=== PATIENT | male | born 1940 | race Caucasian/White ===

== ENCOUNTER 2020-11-26 07:33 | Inpatient (IN) | payer MEDICARE, SELFPAY ==
[2020-11-26] VITALS (18 sets, daily range): BP systolic 117–179; BP diastolic 68–102; PULSE 83–106; RESP 16–32; TEMP 36.8–37.7; O2SAT 82–97; BMI 21.9; BMI 21.7
--- NOTE | ~2020-11-26 | CT_ITS ---
EXAMINATION: CT brain wo con DATE: 11/26/2020 08:33 INDICATION: Weakness. Fall. COVID-19 positive. TECHNIQUE: Computed tomography (CT) of the head was performed without intravenous contrast. The mA wa s adjusted according to patient size. Iterative reconstruction technique was employed. The dose-lengt h product was 681.00 mGy-cm. COMPARISON: Head CT 08/05/2012, brain MRI 08/06/2012 FINDINGS: There are scattered areas of low attenuation in the cerebral white matter. There is no intr acranial hemorrhage, acute infarction, or abnormal intracranial mass lesion. The ventricles are yonny l in size. There is mild mucosal thickening in the paranasal sinuses. There are likely changes of ocu lar lens replacement surgeries. There is a small left mastoid effusion. IMPRESSION: 1. Worsened moderate nonspecific cerebral white matter disease, which likely represents chronic small vessel ischemic disease. Reviewed, dictated and finalized at location A. IMPRESSION: 1. Worsened moderate nonspecific cerebral white matter disease, which likely re presents chronic small vessel ischemic disease.
--- NOTE | ~2020-11-26 | XR_ITS ---
EXAMINATION: XR chest 1V portable EXAM DATE: 11/26/2020 08:20 INDICATION: sob X 2 WKS, covid. H/O ASTHMA, COPD . TECHNIQUE: Portable AP frontal chest x-ray was obtained. There is no prior study for comparison. FINDINGS: Moderate amount of bilateral peripheral predominant airspace disease, distribution is consi stent with COVID pneumonia. No pneumothorax or pleural effusion. There may be some pleural plaques. C ardiomediastinal silhouette is normal. There are mild bony degenerative changes. Mild to moderate tho racic scoliosis. There is aortic arteriosclerosis. Chronic appearing hyperinflation. IMPRESSION: 1. Moderate amount of bilateral airspace disease. Reviewed, dictated and finalized at location A.
--- NOTE | ~2020-11-26 | XR_ITS ---
EXAMINATION: XR chest 1V portable DATE: 11/29/2020 14:35 INDICATION: Shortness of breath. TECHNIQUE: A single frontal view of the chest was obtained. COMPARISON: Chest single view 11/27/2020 FINDINGS: There are airspace and interstitial opacities throughout the lungs bilaterally. There are c alcified pleural plaques bilaterally, which may be seen with asbestos exposure. No pleural effusion o r pneumothorax. The heart size is normal. IMPRESSION: 1. Worsened diffuse lung disease, consistent with COVID-19 pneumonia. Reviewed, dictated and finalized at location A.
--- NOTE | ~2020-11-26 | XR_ITS ---
EXAMINATION: XR chest 1V portable DATE: 11/27/2020 10:39 INDICATION: Shortness of breath TECHNIQUE: frontal view of the chest was obtained. COMPARISON: Chest radiograph dated 11/26/2020 FINDINGS: Increasing bilateral patchy airspace opacities with peripheral and mid lung predominance. No pleural effusion or pneumothorax. Scattered bilateral calcified pleural plaques suggestive of prior asbestos exposure. The cardiomediastinal silhouette is normal. Mild thoracic dextrocurvature with bridging ost eophytes at multiple levels consistent with diffuse idiopathic skeletal hyperostosis (DISH). IMPRESSION: 1. Increasing patchy bilateral lung disease consistent with worsening pneumonia or pulmonary edema. 2. Scattered bilateral calcified pleural plaques consistent with prior asbestos exposure. Reviewed, dictated and finalized at location B.
--- NOTE | ~2020-11-26 | XR_ITS ---
EXAMINATION: XR chest 1V portable INDICATION: Shortness of breath TECHNIQUE: Portable AP chest at 0530 hours COMPARISON: 11/29/2020 FINDINGS: Interstitial and airspace opacities persist throughout all lung zones with slight interval improvement. There is no pleural effusion or pneumothorax. The cardiomediastinal silhouette is normal . Calcified pleural plaques are noted. IMPRESSION: 1. Diffuse lung disease with interval improvement, consistent with COVID 19 pneumonia. Reviewed, dictated and finalized at location A. IMPRESSION: 1. Diffuse lung disease with interval improvement, consistent with COVID 19 pne umonia.
--- NOTE | ~2020-11-26 | XR_ITS ---
EXAMINATION: XR chest 2V DATE: 12/09/2020 08:56 INDICATION: COVID pneumonia TECHNIQUE: frontal and lateral views of the chest were obtained. COMPARISON: Chest radiograph dated 12/03/2020 FINDINGS: Significant interval improvement in airspace opacities in the right mid and lower lung zones. The toney ority of the residual opacities appear to represent calcified pleural plaques related to asbestos exp osure. No pneumothorax or pleural effusion. The cardiomediastinal silhouette is normal. IMPRESSION: 1. Significant improvement, potentially resolution, of prior bilateral lung disease with remaining op acities likely resulting from calcific pleural plaques related to chronic asbestos exposure. There ar e no radiographs prior to 11/26/2020 to demonstrate the baseline prior to the current episode of acute lung disease. Reviewed, dictated and finalized at location A. IMPRESSION: 1. Significant improvement, potentially resolution, of prior bilateral lung dis ease with remaining opacities likely resulting from calcific pleural plaques re lated to chronic asbestos exposure. There are no radiographs prior to 11/26/2020 to demonstrate the baseline prior to the current episode of acute lung disease .
--- NOTE | 2020-11-26 08:04 | ECG_ITS ---
Measurements Intervals [place] Rate: 90 P: RI: 0 QRS: -10 QRSD: 85 T: 30 QT: 368 QTc: 451 Interpretive Statements ATRIAL FIBRILLATION ABNORMAL ECG Electronically Signed On 11-26-2020 9:52:16 CDT by Hector Grijalva D.O.
[2020-11-26 08:32] LABS: Basophils Percent Auto 0.2 % (0.2-1.2); Hematocrit 45.7 % (42.0-52.0); Hemoglobin 15.2 g/dL (14.0-18.0); Immature Granulocyte Absolute 0.04 K/mm3 (0.00-0.031); Immature Granulocyte Percent A 0.7 % (0-0.5); Lymphocytes Absolute Auto 0.56 K/mm3 (0.9-3.2); Lymphocytes Percent Auto 9.2 % (18.3-44.2); Mean Corpuscular HGB Conc 33.3 g/dl (32-36); Mean Corpuscular Hemoglobin 32.5 pg (26-34); Mean Corpuscular Volume 97.6 fl (80-100); Mean Platelet Volume 9.6 fl (7.4-10.4); Monocytes Absolute Auto 0.6 K/mm3 (0.1-0.6); Monocytes Percent Auto 9.9 % (2.6-8.5); Neutrophils Absolute Auto 4.9 K/mm3 (1.3-6.7); Platelet Count Result 207 k/mm3 (150-375); Red Blood Count 4.68 M/mm3 (4.6-6.20); Red Cell Distribution Width 14.5 % (11.5-14.5); White Blood Count 6.1 K/mm3 (4.5-10.0)
[2020-11-26 08:50] LABS: Alanine Aminotransferase 33 U/L (4-50); Albumin Level 3.5 g/dL (3.5-5.1); Alkaline Phosphatase 66 U/L (38-126); Anion Gap 6 mmol/L (8-16); Aspartate Amino Transferase 65 U/L (17-59); Bilirubin,Total 0.6 mg/dL (0.2-1.3); Blood Urea Nitrogen 27 mg/dL (9-20); Calcium 7.8 mg/dL (8.4-10.2); Carbon Dioxide 24 mmol/L (22-30); Chloride 104 mmol/L (98-107); Estimated CRCL calculation 47 ml/min; Estimated Glomerular Filt Rate 58; Glucose 117 mg/dL (65-110); Potassium 4.1 mmol/L (3.4-5.0); Sodium 134 mmol/L (137-145)
[2020-11-26 09:07] LABS: NT Pro B Type Natriuretic Pept 2170 pg/mL (5-100); Troponin I 0.067 ng/mL (0.000-0.034)
[2020-11-26 10:10] LABS: CRP 24.6 mg/dL (<1.0)
--- NOTE | 2020-11-26 12:52 | ED.WEAKNESS ---
HPI - Weakness General Chief complaint: Weakness Stated complaint: weakness, COVID + Time Seen by Provider: 11/26/20 07:37 Source: family and EMS Mode of arrival: EMS Limitations: dementia History of Present Illness HPI Narrative: 80-year-old with history of dementia was brought in from home in ambulance with complaints of weakness. Patient fell off the toilet seat this morning his was trying to help him out get him out of the floor. He was also recently diagnosed with Covid. However upon EMS arrival patient was found to be hypoxemic. Patient presently denies any chest pain or shortness of breath cough. MD Complaint: generalized weakness Onset (ago): hour(s) (4) Duration: constant Location: generalized Migration: none Severity: moderate Relieving factors: none Exacerbating factors: none Related Data Home Medications Medication Instructions Recorded Confirmed albuterol sulfate INHALATION 11/26/20 benzonatate mg PO 11/26/20 omeprazole 11/26/20 rosuvastatin mg 11/26/20 Allergies Allergy/AdvReac Type Severity Reaction Status Date / Time No Known Allergies Allergy Mild Verified 11/26/20 08:39 Review of Systems Review of Systems: ROS unobtainable: Yes unobtainable due to medical condition (Dementia) Exam Narrative: GENERAL: Well-appearing, well-nourished, and in no acute distress. HEAD: Normocephalic, atraumatic. EYES: PERRLA and EOMI. NECK: Supple. CHEST: Clear to auscultation. No respiratory distress. HEART: Regular rate and rhythm. No murmur heard. Normal peripheral pulses. ABDOMEN: Soft, nontender, nondistended, normal active bowel sounds. EXTREMITIES: Normal range of motion. No edema. Stool in the lower extremities SKIN: Warm, dry, no rash. NEURO: No focal deficits. Alert and oriented x3. PSYCH: Normal mood and affect. Course Course Emergency Course: Patient comfortably resting on the bed in no discomfort with SPO2 of 94 to 95% on 2 L. Informed him about the lab work and x-rays. I discussed his lab work with his . We will admit him to the hospital for O2 and also his cardiac enzymes were elevated. I did consult cardiology for consult. Vital Signs Vital signs: Vital Signs Temperature 37.3 C 11/26/20 07:33 Pulse Rate 95 11/26/20 07:33 Respiratory Rate 28 H 11/26/20 07:33 Blood Pressure 156/82 H 11/26/20 07:33 Pulse Oximetry 82 L 11/26/20 07:33 Temperature 37.3 C 11/26/20 07:33 Pulse Rate 93 11/26/20 11:01 Respiratory Rate 29 H 11/26/20 11:01 Blood Pressure 146/82 H 11/26/20 11:01 Pulse Oximetry 95 11/26/20 10:00 MDM - Weakness Lab Data Result diagrams: 11/26/20 08:12 11/26/20 08:12 Labs: Lab Results 11/26/20 11/26/20 Range/Units 08:12 08:12 WBC 6.1 (4.5-10.0) K/mm3 RBC 4.68 (4.6-6.20) M/mm3 Hgb 15.2 (14.0-18.0) g/dL Hct 45.7 (42.0-52.0) % MCV 97.6 (80-100) fl MCH 32.5 (26-34) pg MCHC 33.3 (32-36) g/dl RDW 14.5 (11.5-14.5) % Plt Count 207 (150-375) k/mm3 MPV 9.6 (7.4-10.4) fl Immature Gran % (Auto) 0.7 H (0-0.5) % Neut % (Auto) 80.0 H (45.5-73.1) % Lymph % (Auto) 9.2 L (18.3-44.2) % Tyrrell % (Auto) 9.9 H (2.6-8.5) % Eos % (Auto) 0.0 (0-4.4) % Baso % (Auto) 0.2 (0.2-1.2) % Lymph # (Auto) 0.56 L (0.9-3.2) K/mm3 Tyrrell # (Auto) 0.6 (0.1-0.6) K/mm3 Eos # (Auto) 0.0 (0-0.3) K/mm3 Baso # (Auto) 0.0 (0.0-0.1) K/mm3 Abs Immat Gran (auto) 0.04 H (0.00-0.031) K/mm3 Absolute Neuts (auto) 4.9 (1.3-6.7) K/mm3 Absolute Nucleated RBC 0.0 (0.0-0.012) K/mm3 Nucleated RBC % 0.0 (0.0-0.2) % Sodium 134 L (137-145) mmol/L Potassium 4.1 (3.4-5.0) mmol/L Chloride 104 (98-107) mmol/L Carbon Dioxide 24 (22-30) mmol/L Anion Gap 6 L (8-16) mmol/L BUN 27 H (9-20) mg/dL Creatinine 1.20 (0.7-1.3) mg/dL Estim Creat Clear Calc 47 ml/min Estimated GFR 58 L (59 - ) Glucose 117 H (65-110) mg/dL Calcium 7.8
[2020-11-26] MEDS: SODIUM CHLORIDE 0.9% IV 1,000 ML 75 ML IV CONT (14:50)
[2020-11-26] MEDS: ASPIRIN 81 MG CHEWABLE TABLET PO (14:50)
--- NOTE | 2020-11-26 14:50 | ADMGEN ---
This patient, Petar Marquez, was admitted to IMU Room 211-01 at 1445 on November. Report received from Cat RN in ED. Patient/family oriented to hospital policies and general routines including ID bracelet, bed and alarms, visiting hours, pain management, procedures, bathroom and other care routines, personal items, smoking policy, room service/diet, and visiting hours. Information on how to activate the Rapid Response Team has been discussed. Patient/Family are encouraged to report perceived risks to care and to ask questions if they do not understand what they are told or what they should do.
[2020-11-26 16:49] LABS: Troponin I 0.058 ng/mL (0.000-0.034)
[2020-11-26 17:37] LABS: Glucose Point of Care 123 mg/dl (65-105)
[2020-11-26 19:07] LABS: Troponin I 0.069 ng/mL (0.000-0.034)
--- NOTE | 2020-11-26 19:20 | PM.IMHP ---
H&P: HPI History of Present Illness Date/Time: 11/26/20 19:20 Chief Complaint: Shortness of breath. Narrative: This is an 80-year-old male with past medical history significant for dementia, his is his primary caregiver. Patient is unable to give much history he only answers yes or no and and says ask my . Patient and are both here admitted to the hospice both of them tested positive for COVID. Most of the history has been obtained from medical records obtained in the emergency room. Patient has been very weak lately and his was trained to help him while he was using the toilet he fell off of the toilet seat and was unable to help pain get up EMS was called upon arrival EMS it was noted that patient's oxygen saturation was in the 80's %. Preliminary workup was significant for slight elevated troponin and EKG shows atrial fibrillation, creatinine of 1.2 BUN 27 BNP above 2000, a chest x-ray was significant for diffuse infiltrates. Patient has been admitted for further management treatment and evaluation. Review of Systems Review of Systems: ROS unobtainable: Yes unobtainable due to medical condition (Advanced dementia) [facility] Family History Family History (Updated 11/26/20 @ 15:06 by Mariah Kaplan RN) Other Unknown family medical history Social History Social History Smoking status: Never smoker Alcohol intake: never Substance use: never Gender identity (if verbalized by the patient): Male Spiritual care concerns: No Meds Home Medications and Allergies Home Medications Medication Instructions Recorded Confirmed Type albuterol sulfate 2 inh INHALATION Q4H 11/26/20 11/26/20 History benzonatate 200 mg PO TID 11/26/20 11/26/20 History omeprazole 20 mg PO HS 11/26/20 11/26/20 History rosuvastatin 20 mg PO HS 11/26/20 11/26/20 History Allergies Allergy/AdvReac Type Severity Reaction Status Date / Time No Known Allergies Allergy Mild Verified 11/26/20 08:39 Vital Signs Vital Signs - 24 hr 11/26/20 07:33 11/26/20 07:37 11/26/20 07:46 Temperature 99.1 F Pulse Rate 95 83 93 Respiratory Rate 28 H 25 H 26 H Blood Pressure 156/82 H 156/82 H 160/94 H Pulse Oximetry 82 L 84 L 93 11/26/20 08:01 11/26/20 08:17 11/26/20 09:00 Temperature Pulse Rate 91 92 92 Respiratory Rate 31 H 32 H 26 H Blood Pressure 151/102 H 140/68 145/70 H Pulse Oximetry 91 89 L 95 11/26/20 10:00 11/26/20 11:01 11/26/20 12:00 Temperature Pulse Rate 92 93 100 Respiratory Rate 24 H 29 H 24 H Blood Pressure 142/85 H 146/82 H 168/87 H Pulse Oximetry 95 95 11/26/20 13:00 11/26/20 13:40 11/26/20 15:07 Temperature 98.8 F Pulse Rate 103 H 106 H 96 Respiratory Rate 20 22 H 22 H Blood Pressure 170/91 H 170/91 H 117/95 H Pulse Oximetry 97 94 94 11/26/20 15:09 11/26/20 16:00 11/26/20 17:23 Temperature 99.8 F H Pulse Rate 95 93 Respiratory Rate 22 H Blood Pressure 179/101 H Pulse Oximetry 94 94 93 11/26/20 18:00 Temperature Pulse Rate 98 Respiratory Rate Blood Pressure Pulse Oximetry Exam Narrative: Laying in bed Const: General: cooperative, comfortable, no acute distress, well developed, alert, awake and other (Well-appearing) Nutritional Appearance: thin Orientation/consciousness: patient oriented x3 HENMT: Head: normal to inspection, normocephalic and atraumatic Ears: hearing grossly normal bilaterally Face and sinus: normal facial exam Eyes: General: appearance normal, both eyes and all related structures Pupils: Equal, round and reactive pupils present EOM: EOMs intact bilaterally Neck: Neck: full ROM, no lymphadenopathy and no JVD Thyroid: thyroid normal Lymphatic: no lymphadenopathy noted Resp: Effort & Inspection: normal respiratory effort and able to speak in complete sentences Auscultation: clear to auscultation bilaterally Cardio: Jugular venous distension: no JVD Rate: regular rate
[2020-11-27] VITALS (23 sets, daily range): BP systolic 127–179; BP diastolic 67–93; PULSE 86–126; RESP 20–42; TEMP 36.6–37.4; O2SAT 92–99; BMI 23.0
--- NOTE | 2020-11-27 | ECHO_ITS ---
Patient Info Name: Petar Marquez Age: 80 years : 1940 Gender: Male Ht: 73 in Wt: 164 lbs BSA: 1.95 m2 HR: 110 bpm BP: 134 / 72 mmHg Heart Rhythm: Atrial Fibrillation Exam Date: 11/27/2020 9:47 AM Exam Location: [facility] Patient Status: Inpatient Admit Date: 11/26/2020 Staff Ordering Physician: Betzy Garcia MD Advertising Intern: Josep Berger, JANAECS, RT Attending Provider: Monique Negron MD Referring Physician: Radha RAYGOZA; Exam Type: CA echo doppler color flow Study Info Indications I50.9 - Heart failure, unspecified Complete two-dimensional, color flow and Doppler transthoracic echocardiogram is performed. Summary 1. Complete two-dimensional, color flow and Doppler transthoracic echocardiogram is performed. 2. Left ventricular chamber dimension is normal. 3. Left ventricular systolic function is normal, estimated at 55-60%. 4. There is moderately increased left ventricular wall thickness. 5. The left ventricular diastolic function is indeterminate. 6. There is mild aortic valve stenosis with a peak velocity of 120 cm/s, mean gradient of 3 mmHg, and aortic valve area of 1.9 cm2. 7. There is mild aortic valve regurgitation. 8. There is mild aortic valve calcification. 9. There is mild mitral valve regurgitation. 10. There is mild tricuspid valve regurgitation. Left Ventricle Left ventricular chamber dimension is normal. Left ventricular systolic function is normal, estimated at 55-60%. There is moderately increased left ventricular wall thickness. The left ventricular diastolic function is indeterminate. Right Ventricle Right ventricular chamber dimension is normal. Right ventricular systolic function is normal. Left Atria Left atrial chamber dimension is normal. There does appear to be some external compression of the left atrial free wall possibly from a hiatal hernia. Right Atria Right atrial chamber dimension is normal. Atrial Septum Intact interatrial septum visualized by color flow imaging. Aortic Valve The aortic valve is trileaflet. There is mild aortic valve stenosis with a peak velocity of 120 cm/s, mean gradient of 3 mmHg, and aortic valve area of 1.9 cm2. There is mild aortic valve regurgitation. There is mild aortic valve calcification. Pulmonic Valve The pulmonic valve is normal. There is no pulmonic valve stenosis. There is trace pulmonic regurgitation. Mitral Valve The mitral valve has thickened leaflets. There is no mitral valve stenosis. There is mild mitral valve regurgitation. Tricuspid Valve The tricuspid valve leaflets are normal. There is no significant tricuspid valve stenosis. There is mild tricuspid valve regurgitation. Pericardium/Pleural The pericardium appears normal. There is no pericardial effusion. Inferior Vena Cava Normal inferior vena cava with >50% collapse upon inspiration consistent with normal right atrial pressure, 5 mmHg. Aorta The aortic root size at the sinus of Valsalva is normal. Left Ventricular Outflow Tract Name Value Normal LVOT 2D LVOT Diameter 2.0 cm LVOT Doppler LVOT Peak Gradient
[2020-11-27 00:28] LABS: Alanine Aminotransferase 37 U/L (4-50); Estimated CRCL calculation 49 ml/min; Estimated Glomerular Filt Rate > 60; Prothrombin Time 12.9 Seconds (11.1-14.7)
[2020-11-27] MEDS: ROSUVASTATIN 10 MG TABLET 20 MG PO (00:28)
[2020-11-27] MEDS: ENOXAPARIN 80 MG/0.8 ML SYRINGE 75 MG SUB-Q ×3 (00:28→20:21)
[2020-11-27] MEDS: hydrALAZINE HCL 20 MG/ML VIAL 10 MG IV PUSH (01:35)
--- NOTE | 2020-11-27 01:52 | ECG_ITS ---
Measurements Intervals [place] Rate: 106 P: VA: 0 QRS: -11 QRSD: 89 T: 11 QT: 349 QTc: 463 Interpretive Statements ATRIAL FIBRILLATION WITH RAPID VENTRICULAR RESPONSE DELAYED PRECORDIAL R/S TRANSITION BORDERLINE T WAVE ABNORMALITY- INFERIOR LEADS BASELINE ARTIFACT- II, III, AVF, V2 ABNORMAL ECG Electronically Signed On 11-27-2020 6:52:37 CDT by Hector Grijalva D.O.
[2020-11-27] MEDS: ALBUTEROL SULFATE (*SP) INHALER 2 PUFF INHALATION (02:20)
[2020-11-27] MEDS: REMDESIVIR 200 MG/NS 250 ML 200 MG/250 ML BAG 250 MG IVPB (02:20)
[2020-11-27 05:21] LABS: Basophils Percent Auto 0.1 % (0.2-1.2); Hematocrit 45.6 % (42.0-52.0); Hemoglobin 15.3 g/dL (14.0-18.0); Immature Granulocyte Absolute 0.05 K/mm3 (0.00-0.031); Immature Granulocyte Percent A 0.7 % (0-0.5); Lymphocytes Absolute Auto 0.58 K/mm3 (0.9-3.2); Mean Corpuscular HGB Conc 33.6 g/dl (32-36); Mean Corpuscular Hemoglobin 32.8 pg (26-34); Mean Corpuscular Volume 97.6 fl (80-100); Mean Platelet Volume 10.3 fl (7.4-10.4); Monocytes Absolute Auto 0.6 K/mm3 (0.1-0.6); Monocytes Percent Auto 7.9 % (2.6-8.5); Neutrophils Percent Auto 83.3 % (45.5-73.1); Platelet Count Result 211 k/mm3 (150-375); Red Blood Count 4.67 M/mm3 (4.6-6.20); Red Cell Distribution Width 14.4 % (11.5-14.5); White Blood Count 7.3 K/mm3 (4.5-10.0)
[2020-11-27 05:38] LABS: Alanine Aminotransferase 38 U/L (4-50); Anion Gap 6 mmol/L (8-16); Blood Urea Nitrogen 25 mg/dL (9-20); Calcium 7.6 mg/dL (8.4-10.2); Carbon Dioxide 23 mmol/L (22-30); Chloride 107 mmol/L (98-107); Estimated CRCL calculation 62 ml/min; Estimated Glomerular Filt Rate > 60; Glucose 138 mg/dL (65-110); INR 1.1; Potassium 3.7 mmol/L (3.4-5.0); Prothrombin Time 13.8 Seconds (11.1-14.7); Sodium 136 mmol/L (137-145)
--- NOTE | 2020-11-27 08:40 | PM.IMPN ---
Progress Note: A&P Assessment and Plan (1) Acute respiratory failure with hypoxia: Code(s): J96.01 - Acute respiratory failure with hypoxia Status: Acute Assessment and Plan: ON OXYGEN SUPPLEMENTATION TRY AND KEEP OXYGEN SATURATION AT 94% Will move from BiPAP to high-flow nasal cannula LIKELY SECONDARY TO COVID PNEUMONIA CONTINUE TO MONITOR SUPPORTIVE CARE Recently diagnosed with COVID unsure when CRP 24 BNP elevated at 2 170 (2) Pneumonia due to COVID-19 virus: Code(s): U07.1 - COVID-19; J12.82 - Pneumonia due to coronavirus disease 2019 Status: Acute Assessment and Plan: STARTED ON REMDESIVIR ROCEPHIN AND ZITHROMAX FOR ADDED ANTIBACTERIAL COVERAGE WBC count is normal however does have neutrophilia DEXAMETHASONE has ordered along with the remdesivir monitor CRP (3) Atrial fibrillation and flutter: Code(s): I48.91 - Unspecified atrial fibrillation; I48.92 - Unspecified atrial flutter Status: Acute Assessment and Plan: APPARENTLY NEW ONSET STARTED ON THERAPEUTIC LOVENOX ECHOCARDIOGRAM today Had metoprolol 12.5 mg p.o. b.i.d. (4) Elevated troponin I level: Code(s): R77.8 - Other specified abnormalities of plasma proteins Status: Acute Assessment and Plan: Trend flat EKG WITH NO T-WAVE OR ST SEGMENT CHANGES Likely type 2 [facility] on board (5) Chronic kidney disease: Code(s): N18.9 - Chronic kidney disease, unspecified Status: Acute Assessment and Plan: BUN 27 CREATININE OF 1.2 CONTINUE TO MONITOR AVOID NEPHROTOXICS (6) Dementia: Code(s): F03.90 - Unspecified dementia without behavioral disturbance Status: Acute Assessment and Plan: SUPPORTIVE CARE ON NO MEDS (7) Generalized weakness: Code(s): R53.1 - Weakness Status: Acute Assessment and Plan: PT OT (8) Fall: Code(s): W19.XXXA - Unspecified fall, initial encounter Status: Acute Assessment and Plan: He had a CT head negative Additional Plan This is an 80-year-old male with past medical history significant for dementia, his is his primary caregiver. Patient is unable to give much history he only answers yes or no and and says ask my . Patient and are both here admitted to the hospice both of them tested positive for COVID. Most of the history has been obtained from medical records obtained in the emergency room. Patient has been very weak lately and his was trained to help him while he was using the toilet he fell off of the toilet seat and was unable to help pain get up EMS was called upon arrival EMS it was noted that patient's oxygen saturation was in the 80's %. Preliminary workup was significant for slight elevated troponin and EKG shows atrial fibrillation, creatinine of 1.2 BUN 27 BNP above 2000, a chest x-ray was significant for diffuse infiltrates. Patient has been admitted for further management treatment and evaluation. Subjective Date/time seen: 11/27/20 08:40 Interval history: He states he feels okay. Continues on a continuous BiPAP since last night. Denies any chest pain or cough. No leg swelling. He has dementia so most of the history was unable to be obtained continues to say ask my Review of Systems Review of Systems: ROS unobtainable: Yes unobtainable due to medical condition (Advanced dementia) Exam Narrative: GENERAL: Well-appearing, well-nourished, and in no acute distress. On BiPAP HEAD: Normocephalic, atraumatic. EYES: PERRLA and EOMI. NECK: Supple. Nontender CHEST: Clear to auscultation. No respiratory distress. HEART: Irregularly irregular mildly tachycardic No murmur heard. Normal peripheral pulses. ABDOMEN: Soft, nontender, nondistended, normal active bowel sounds. EXTREMITIES: Normal range of motion. No edema. Stool in the lower extremities SKIN: Warm, dry, no rash. NEURO: No focal deficits. Alert and conversant Objective Data Vital Signs
[2020-11-27 10:18] LABS: D Dimer 1.78 ug/mL (<0.48)
--- NOTE | 2020-11-27 10:26 | PCRCNOTE ---
Window of time for administration has passed. See next scheduled administration.
--- NOTE | 2020-11-27 10:41 | PCOTNOTE ---
OT Attempted to evaluate. Due to pt. decline, pt. not appropriate at this time per nurse report.
[2020-11-27] MEDS: FUROSEMIDE INJ 40 MG/4 ML VIAL IV PUSH (10:43)
[2020-11-27 11:03] LABS: Add Urine Microscopic? YES; Appearance Urine Clear (Clear); Bilirubin Urine Negative (Negative); Blood Urine 3+ (Negative); Color Urine Yellow (Yellow); Glucose Urine UA Negative (Negative); Ketones Urine 1+ mg/dL (Negative); Leukocyte Esterase Ur Negative LEU/UL (NEGATIVE); Nitrate Urine Negative (Negative); Protein Urine 2+ mg/dL (Negative); RBC Urine 0-2 /hpf (0-2); Specific Grav Ur 1.025 (1.001-1.035); Squamous Epithelial Cell Urine Rare /hpf (Few); Urobilinogen Urine Negative mg/dL (<2.0); WBC Urine 0-3 /hpf (0-3)
--- NOTE | 2020-11-27 11:45 | PCRCNOTE ---
Window of time for administration has passed. See next scheduled administration.
--- NOTE | 2020-11-27 11:57 | PM.CNPUL ---
Assessment and Plan Assessment and plan (1) Pneumonia due to COVID-19 virus: Code(s): U07.1 - COVID-19; J12.82 - Pneumonia due to coronavirus disease 2019 Status: Acute Assessment and Plan: Patient tested positive for COVID-19 on 11/16 and started on remdesivi 11/26, dexamethasone on 11/27 and tocilizumab not available. Spoke with pharmacy and baricitinib 4 mg PO Q day ordered 11/27. Emperically started on ceftriaxone and azithromycin. - Remdesivir for 10 days Unless he should recover and tolerate room air with rest, ambulation and while sleeping. - Dexamethasone 6 mg IV for 10 days - Continuous pulse oximetry - Prone positioning as tolerated. - Avoid any fluid overload. - emperic azihtromycin and ceftraixone for CAP. DC after blood cultures negative for 48 hours. - DC bronchodilators as AFIB - Lovenox full dose for AFIB. 11/27 CXR worsening infiltrates today. Worsening clinically with worsening hypoxia. I have changed him to AVAPS mode and will check a blood gas in 30 minutes to assess for hypercarbic respiratory failure. I spoke with the bedside nurse and Dr. Mosher to talk to regarding code status. I spoke with ferry hand who already had heard about patient from Dr. Mosher. Will follow with you. (2) Acute respiratory failure with hypoxia: Code(s): J96.01 - Acute respiratory failure with hypoxia Status: Acute Assessment and Plan: Etiology of hypoxic respiratory failure is likely COVID pneumonia. I will check an echocardiogram to ensure normal LV function and normal aortic valve function. 11/26 Initial saturations on 11/26 were 84% on room air at 7:30 a.m.. 11/26 3:00 p.m. patient required 6 L nasal cannula for saturations 94%. 11/26 8:00 p.m. required 15 L nasal cannula for saturations 91%. 11/27 2:00 a.m. patient required BiPAP with a rate of 10, pressure is 18/6 and 80% for saturations 95%. 11/27 11:45 a.m. AVAPS mode with a backup rate of 24, tidal volume 550, EPAP 6, minimal inspiratory pressure 7, maximal inspiratory pressure 25, inspiratory time 1.0 seconds, rise of to and 80%. Saturations were 95%. History of Present Illness History of Present Illness Consult date: 11/27/20 Requesting physician: Reuben Mosher MD Reason for consult: hypoxemia and other (COVID pneumonia) Chief complaint: covid/hypoximia/elevated troponin Narrative: This is a new Pulmonary consult for COVID pneumonia with hypoxemic respiratory failure 80-year-old man with a history of dementia who tested positive for COVID by report on 11/16/20. Patient was weak and on 11/26 he fell off the toilet seat an EMS was called. Saturations were in the 80% and he was brought to the emergency department. Patient had a white blood cell count of 6.1, CRP of 24.6, creatinine 1.2, BNP 2170 and a chest x-ray that showed diffuse bilateral interstitial and alveolar infiltrates. Patient was started on Remdesivir on 11/26. Initial saturations on 11/26 were 84% on room air at 7:30 a.m.. At 3:00 p.m. patient required 6 L nasal cannula for saturations 94%. At 8:00 p.m. required 15 L nasal cannula for saturations 91%. On 11/27 at 2:00 a.m. patient required BiPAP with a rate of 10, pressure is 18/6 and 80% for saturations 95%. Patient was empirically started on ceftriaxone and azithromycin for possible community-acquired pneumonia. I was consulted. Of note the patient's is also COVID positive and she is admitted to the medical floor as well. 11/27: Patient knows his name, states he is at [place], but does not know the year. He is currently on BiPAP in moderate respiratory distress with a respiratory rate of 40 On the above mentions BiPAP settings. I changed his BiPAP settings to AVAPS mode with a backup rate of 24, tidal volume 550, EPAP 6, minimal inspiratory pressure 7, maximal inspiratory pressure 25, inspiratory time 1.0 seconds, rise of to and 80%. Saturations were 95% on the settings and his respirato
--- NOTE | 2020-11-27 12:12 | PM.CNCAR ---
Assessment and Plan Assessment and plan (1) Pneumonia due to COVID-19 virus: Code(s): U07.1 - COVID-19; J12.82 - Pneumonia due to coronavirus disease 2018 Status: Acute Assessment and Plan: 80-year-old male with history of dementia; no known prior cardiac history. Patient admitted to the hospital with generalized weakness, found to be hypoxemic. Recent diagnosis of COVID-19 infection, with COVID pneumonia and worsening respiratory status. Patient currently on BiPAP with 80% FiO2. He has also receiving antibiotics, steroids, remdesivir. -management as per Primary Team, pulmonology -gentle diuresis -check echocardiogram Doppler (2) Acute respiratory failure with hypoxia: Code(s): J96.01 - Acute respiratory failure with hypoxia Status: Acute Assessment and Plan: Management as per Primary Team, pulmonology (3) Atrial fibrillation: Code(s): I48.91 - Unspecified atrial fibrillation Status: Acute Assessment and Plan: Patient is in atrial fibrillation with heart rates in 90s to 100s. Patient unable to take p.o. medications at this time. Continue to monitor for now. Elevated heart rates are secondary to underlying infection/inflammatory process. If heart rates are persistently more than 110 beats per minute, then may use metoprolol tartrate 5 mg IV p.r.n. q.6 hours, with holding parameters for blood pressure. May consider using IV amiodarone if persistent heart rates with relatively low blood pressures. DC cardioversion, if necessary for any hemodynamically unstable AFib with RVR. Patient is currently receiving low-molecular weight heparin for anticoagulation. History of Present Illness History of Present Illness Consult date/time: 11/27/20 12:12 DATE OF CONSULT: 11/27/2020 REASON FOR CONSULT: AFib, elevated trope REQUESTING PHYSICIAN:Armando Martell MD CHIEF COMPLAINT: Weakness HPI: 80-year-old male with dementia; no known prior cardiac history. Patient presented to [facility] Emergency Room on 11/26/2020 via EMS with generalized weakness and a fall in the bathroom. Patient was apparently found to have COVID-19 infection on November 16, 2020. He was hypoxemic with SpO2 82% on arrival. EKG on my personal evaluation showed atrial fibrillation with controlled ventricular response, ventricular rate 90 beats per minute. Troponins are minimally elevated and essentially flat. Chest x-ray showed bilateral airspace disease. CT head reportedly showed worsened moderate nonspecific cerebral white matter disease, which likely represents chronic small vessel ischemic disease. Follow-up chest x-ray from today showed Increasing patchy bilateral lung disease consistent with worsening pneumonia or pulmonary edema; scattered bilateral calcified pleural plaques consistent with prior asbestos exposure. Patient has been receiving antibiotics, steroids and remdesivir for COVID 19 infection. His currently on BiPAP at 80% FiO2. Has also received IV furosemide. Patient is currently on anticoagulation with low-molecular weight heparin. On telemetry, he is in atrial fibrillation with heart rates in 90s to early 100s. Reason For Visit: covid/hypoximia/elevated troponin Review of Systems Review of Systems: ROS unobtainable: Yes unobtainable due to medical condition (Unable to obtain, patient has dementia and is on BiPAP) and other (Information gathered from the review of the chart and from the staff) ON LICENSE OF [facility] Past Medical History Medical History Dementia Family History Family History (Updated 11/27/20 @ 12:27 by Milton Juarez MD) Other Unknown family medical history Social History Social History Smoking status: Never smoker Alcohol intake: never Substance use: never Gender identity (if verbalized by the patient): Male Spiritual care concerns: No Meds Home Medications and Jonathan
[2020-11-27 12:40] LABS: Ferritin > 2000.00 ng/mL (11.1-264)
[2020-11-27 13:07] LABS: Alveolar/Arterial O2 Gradient 470.9 mmHg; Base Excess ABG 0.4 mEq/l (+/-2.0); Carboxyhemoglobin 0.3 % THb (0-2.0); Fractional Inspired Oxygen 80 %; HCO3 ABG 22.8 mEq/l (22.0-26.0); Methemoglobin ABG 0.4 %THb (0-1.5); Oxygen Content ABG 21.1 %vol (16.0-22.0); Oxygen Saturation ABG 94.7 % (95.0-100.0); Oxyhemoglobin 93.3 % THb (90.0-100.0); PCO2 ABG 31.2 mmHg (35.0-45.0); PO2 ABG 66.7 mmHg (80.0-100.0); PO2 FiO2 Ratio Arterial Blood 0.83 %; Total Hemoglobin 16.1 g/dL (12.0-18.0); pH ABG 7.481 (7.350-7.450)
[2020-11-27 13:08] LABS: Device NON-INVASIVE VENT; Modified Allen's Test Pass; Site Drawn RIGHT RADIAL
[2020-11-27 13:09] LABS: Non-Invasive Vent Rate 24 /MIN
[2020-11-27 13:10] LABS: Non-Invasive Expiratory Pressure 6 CMH2O
[2020-11-27] MEDS: BARICITINIB 2 MG TABLET 4 MG PO (17:50)
[2020-11-27] MEDS: METOPROLOL TARTRATE INJ 5 MG/5 ML VIAL IV PUSH (20:20)
[2020-11-27] MEDS: REMDESIVIR 100 MG/NS 250 ML 100 MG/250 ML BAG 250 MG IVPB (22:08)
[2020-11-28] VITALS (22 sets, daily range): BP systolic 120–149; BP diastolic 68–93; PULSE 80–117; RESP 20–35; TEMP 35.9–37.2; O2SAT 88–98
[2020-11-28 05:42] LABS: Basophils Percent Auto 0.4 % (0.2-1.2); Hematocrit 46.2 % (42.0-52.0); Hemoglobin 15.2 g/dL (14.0-18.0); Immature Granulocyte Absolute 0.06 K/mm3 (0.00-0.031); Immature Granulocyte Percent A 1.2 % (0-0.5); Lymphocytes Absolute Auto 0.96 K/mm3 (0.9-3.2); Lymphocytes Percent Auto 18.8 % (18.3-44.2); Mean Corpuscular HGB Conc 32.9 g/dl (32-36); Mean Corpuscular Hemoglobin 31.9 pg (26-34); Mean Corpuscular Volume 97.1 fl (80-100); Mean Platelet Volume 10.1 fl (7.4-10.4); Monocytes Absolute Auto 0.6 K/mm3 (0.1-0.6); Monocytes Percent Auto 12.1 % (2.6-8.5); Neutrophils Absolute Auto 3.5 K/mm3 (1.3-6.7); Neutrophils Percent Auto 67.5 % (45.5-73.1); Platelet Count Result 284 k/mm3 (150-375); Red Blood Count 4.76 M/mm3 (4.6-6.20); Red Cell Distribution Width 14.3 % (11.5-14.5); White Blood Count 5.1 K/mm3 (4.5-10.0)
[2020-11-28 05:59] LABS: INR 1.2; Prothrombin Time 15.1 Seconds (11.1-14.7)
[2020-11-28 06:21] LABS: Alanine Aminotransferase 48 U/L (4-50); Albumin Level 3.3 g/dL (3.5-5.1); Alkaline Phosphatase 78 U/L (38-126); Anion Gap 3 mmol/L (8-16); Aspartate Amino Transferase 80 U/L (17-59); Bilirubin,Total 0.5 mg/dL (0.2-1.3); Blood Urea Nitrogen 43 mg/dL (9-20); CRP 24.4 mg/dL (<1.0); Carbon Dioxide 30 mmol/L (22-30); Chloride 107 mmol/L (98-107); Estimated CRCL calculation 44 ml/min; Estimated Glomerular Filt Rate 53; Glucose 179 mg/dL (65-110); Potassium 4.2 mmol/L (3.4-5.0); Sodium 140 mmol/L (137-145)
--- NOTE | 2020-11-28 08:51 | PCPTNOTE ---
PT evaluation attempted this a.m. at 8:45. Pt orders to be entered for HOLD therapy due to patient medical status.
[2020-11-28] MEDS: ENOXAPARIN 80 MG/0.8 ML SYRINGE 75 MG SUB-Q ×2 (09:19→21:15)
--- NOTE | 2020-11-28 10:22 | PM.PNPUL ---
Progress Note: A&P Assessment and Plan (1) Pneumonia due to COVID-19 virus: Code(s): U07.1 - COVID-19; J12.82 - Pneumonia due to coronavirus disease 2019 Status: Acute Assessment and Plan: Patient tested positive for COVID-19 on 11/16 and started on remdesivi 11/26, dexamethasone on 11/27 and tocilizumab not available. Spoke with pharmacy and baricitinib 4 mg PO Q day started 11/27. Emperically started on ceftriaxone and azithromycin. - Remdesivir for 10 days Unless he should recover and tolerate room air with rest, ambulation and while sleeping. - Dexamethasone 6 mg IV for 10 days - Continuous pulse oximetry - Prone positioning as tolerated. - Avoid any fluid overload. - emperic azihtromycin and ceftraixone for CAP. DC after blood cultures negative for 48 hours. - DC bronchodilators as AFIB - Lovenox full dose for AFIB. 11/27 CXR worsening infiltrates today. AVAPS ABG without hypercarbia 7.48. Worsening clinically with worsening hypoxia. I have changed him to AVAPS mode and will check a blood gas in 30 minutes to assess for hypercarbic respiratory failure. 11/27 I spoke with the bedside nurse and Dr. Mosher to talk to regarding code status. I spoke with jewelry cutter who already had heard about patient from Dr. Mosher. 11/28 Unchanged on continuous BiPAP, FIO2 decreased from 80 to 60%. attempt Airvo 60L and 100% along with 100% NRB mask later today. Will follow with you. (2) Acute respiratory failure with hypoxia: Code(s): J96.01 - Acute respiratory failure with hypoxia Status: Acute Assessment and Plan: Etiology of hypoxic respiratory failure is likely COVID pneumonia. I will check an echocardiogram to ensure normal LV function and normal aortic valve function. 11/26 Initial saturations on 11/26 were 84% on room air at 7:30 a.m.. 11/26 3:00 p.m. patient required 6 L nasal cannula for saturations 94%. 11/26 8:00 p.m. required 15 L nasal cannula for saturations 91%. 11/27 2:00 a.m. patient required BiPAP with a rate of 10, pressure is 18/6 and 80% for saturations 95%. 11/27 11:45 a.m. AVAPS mode with a backup rate of 24, tidal volume 550, EPAP 6, minimal inspiratory pressure 7, maximal inspiratory pressure 25, inspiratory time 1.0 seconds, rise of to and 80%. Saturations were 95%. ABG 7.48//68. 11/28 08:15 AVAPS mode with FIO2 60% and sats 94%, attempt Airvo 60L and 100% along with 100% NRB mask later today. Subjective Date/time seen: 11/28/20 10:22 Interval history: Narrative: This is a new Pulmonary consult for COVID pneumonia with hypoxemic respiratory failure 80-year-old man with a history of dementia who tested positive for COVID by report on 11/16/20. Patient was weak and on 11/26 he fell off the toilet seat an EMS was called. Saturations were in the 80% and he was brought to the emergency department. Patient had a white blood cell count of 6.1, CRP of 24.6, creatinine 1.2, BNP 2170 and a chest x-ray that showed diffuse bilateral interstitial and alveolar infiltrates. Patient was started on Remdesivir on 11/26. Initial saturations on 11/26 were 84% on room air at 7:30 a.m.. At 3:00 p.m. patient required 6 L nasal cannula for saturations 94%. At 8:00 p.m. required 15 L nasal cannula for saturations 91%. On 11/27 at 2:00 a.m. patient required BiPAP with a rate of 10, pressure is 18/6 and 80% for saturations 95%. Patient was empirically started on ceftriaxone and azithromycin for possible community-acquired pneumonia. I was consulted. Of note the patient's is also COVID positive and she is admitted to the medical floor as well. 11/27: Patient knows his name, states he is at [place], but does not know the year. He is currently on BiPAP in moderate respiratory distress with a respiratory rate of 40 On the above mentions BiPAP settings. I changed his BiPAP settings to AVAPS mode with a backup rate of 24, tidal volume 550, EPAP 6, minimal inspiratory pressure
--- NOTE | 2020-11-28 10:57 | PCSTNOTE ---
Spoke with nurse, Jamil, who reported patient just was weaned from BiPap machine and she would like to wait to try Bedside Swallow Evaluation until later in the day to allow time for patient to adjust to room air and maintain adequate oxygen levels. Therapist will check in later today.
--- NOTE | 2020-11-28 12:26 | PCSTNOTE ---
Please refer to the Bedside Swallow Evaluation in the EMR. Please note, silent aspiration cannot be ruled out at bedside.
--- NOTE | 2020-11-28 13:58 | PM.IMPN ---
Progress Note: A&P Assessment and Plan (1) Acute respiratory failure with hypoxia: Code(s): J96.01 - Acute respiratory failure with hypoxia Status: Acute Assessment and Plan: ON OXYGEN SUPPLEMENTATION TRY AND KEEP OXYGEN SATURATION AT 94% Will move from BiPAP to high-flow nasal cannula LIKELY SECONDARY TO COVID PNEUMONIA CONTINUE TO MONITOR SUPPORTIVE CARE Recently diagnosed with COVID unsure when CRP 24 BNP elevated at 2 170 Given a dose IV Lasix 1 time yesterday at 11/27 (2) Pneumonia due to COVID-19 virus: Code(s): U07.1 - COVID-19; J12.82 - Pneumonia due to coronavirus disease 2019 Status: Acute Assessment and Plan: STARTED ON REMDESIVIR ROCEPHIN AND ZITHROMAX FOR ADDED ANTIBACTERIAL COVERAGE WBC count is normal however does have neutrophilia DEXAMETHASONE has ordered along with the remdesivir monitor CRP Pulmonary consulted added on Baricitinib. Tocilizumab not available (3) Atrial fibrillation and flutter: Code(s): I48.91 - Unspecified atrial fibrillation; I48.92 - Unspecified atrial flutter Status: Acute Assessment and Plan: APPARENTLY NEW ONSET STARTED ON THERAPEUTIC LOVENOX ECHOCARDIOGRAM today Had metoprolol 12.5 mg p.o. b.i.d. was switched to IV metoprolol p.r.n. (4) Elevated troponin I level: Code(s): R77.8 - Other specified abnormalities of plasma proteins Status: Acute Assessment and Plan: Trend flat EKG WITH NO T-WAVE OR ST SEGMENT CHANGES Likely type 2 [address] Cardiology on board (5) Chronic kidney disease: Code(s): N18.9 - Chronic kidney disease, unspecified Status: Acute Assessment and Plan: BUN 27 CREATININE OF 1.2 CONTINUE TO MONITOR AVOID NEPHROTOXICS (6) Dementia: Code(s): F03.90 - Unspecified dementia without behavioral disturbance Status: Acute Assessment and Plan: SUPPORTIVE CARE ON NO MEDS (7) Generalized weakness: Code(s): R53.1 - Weakness Status: Acute Assessment and Plan: PT OT (8) Fall: Code(s): W19.XXXA - Unspecified fall, initial encounter Status: Acute Assessment and Plan: He had a CT head negative Additional Plan This is an 80-year-old male with past medical history significant for dementia, his is his primary caregiver. Patient is unable to give much history he only answers yes or no and and says ask my . Patient and are both here admitted to the hospice both of them tested positive for COVID. Most of the history has been obtained from medical records obtained in the emergency room. Patient has been very weak lately and his was trained to help him while he was using the toilet he fell off of the toilet seat and was unable to help pain get up EMS was called upon arrival EMS it was noted that patient's oxygen saturation was in the 80's %. Preliminary workup was significant for slight elevated troponin and EKG shows atrial fibrillation, creatinine of 1.2 BUN 27 BNP above 2000, a chest x-ray was significant for diffuse infiltrates. Patient has been admitted for further management treatment and evaluation. Subjective Date/time seen: 11/28/20 13:58 Interval history: Remain on BiPAP all night. Was switched to Airvo and and non-rebreather this morning is saturating in low 90s on 70% FiO2 at 60 liters/minute. He denies any overt shortness of breath his voice is hoarse. No chest pain reported. He states he misses his Review of Systems Review of Systems: All systems reviewed & are unremarkable except as noted in HPI and below (HPI however limited advanced dementia) Exam Narrative: GENERAL: Well-appearing, well-nourished, and in no acute distress. On Airvo and non-rebreather HEAD: Normocephalic, atraumatic. EYES: PERRLA and EOMI. NECK: Supple. Nontender CHEST: Coarse breath sounds. No respiratory distress. HEART: Irregularly irregular No murmur heard. Normal peripheral pulses. ABDOMEN: Soft, nontender, no
--- NOTE | 2020-11-28 14:19 | PM.PNCARD ---
Progress Note: A&P Assessment and Plan (1) Pneumonia due to COVID-19 virus: Code(s): U07.1 - COVID-19; J12.82 - Pneumonia due to coronavirus disease 2018 Status: Acute Assessment and Plan: 80-year-old male with history of dementia; no known prior cardiac history. Patient admitted to the hospital with generalized weakness, found to be hypoxemic. Recent diagnosis of COVID-19 infection, with COVID pneumonia and worsening respiratory status. Patient currently on BiPAP with 80% FiO2. He has also receiving antibiotics, steroids, remdesivir. -management as per Primary Team, pulmonology -gentle diuresis (2) Acute respiratory failure with hypoxia: Code(s): J96.01 - Acute respiratory failure with hypoxia Status: Acute Assessment and Plan: Management as per Primary Team, pulmonology (3) Atrial fibrillation: Code(s): I48.91 - Unspecified atrial fibrillation Status: Acute Assessment and Plan: Patient is in atrial fibrillation with heart rates in 90s to 100s. Patient unable to take p.o. medications at this time. Continue to monitor for now. Elevated heart rates are secondary to underlying infection/inflammatory process. Metoprolol 5 mg IV p.r.n.. Patient is currently receiving low-molecular weight heparin for anticoagulation. Subjective Date/time seen: 11/28/20 14:19 Interval history: Remain on BiPAP all night. Was switched to Airvo and and non-rebreather this morning is saturating in low 90s on 70% FiO2 at 60 liters/minute Date of visit 11/28/2020: He is short of breath. No chest pain. Review of Systems Review of Systems: All systems reviewed & are unremarkable except as noted in HPI and below Constitutional: Constitutional: Reports weakness Cardiovascular: Cardiovascular: Denies chest pain Respiratory: Respiratory: Reports dyspnea Hematologic/Lymphatic: Hematologic/Lymphatic: Denies easy bleeding Exam Narrative: PHYSICAL EXAMINATION: GENERAL: Alert MENTAL STATUS: affect appropriate to mood EYES: Extraocular movements intact EARS: External ears appear normal NOSE: On BiPAP MOUTH: On BiPAP NECK: Supple CHEST: Decreased effort HEART: Tachycardia, irregular rhythm ABDOMEN: Soft, nontender NEUROLOGICAL: Alert MUSCULOSKELETAL: no amputation EXTREMITIES: No pedal edema SKIN: no rash on the exposed area PSYCHIATRIC: appropriate affect Objective Data Vital Signs Vital Signs: Vital Signs - 24 hr 11/27/20 16:00 08/24/21 18:00 11/27/20 18:01 Temperature 37.1 C Pulse Rate 89 119 H 109 H Respiratory Rate 42 H Blood Pressure 127/67 Pulse Oximetry 94 11/27/20 19:25 11/27/20 20:00 11/27/20 20:20 Temperature 36.6 C Pulse Rate 126 H 120 H 124 H Respiratory Rate 28 H 28 H Blood Pressure 132/69 Pulse Oximetry 95 95 11/27/20 20:45 11/27/20 22:00 11/28/20 00:00 Temperature 36.4 C Pulse Rate 112 H 101 H 84 Respiratory Rate 27 H 35 H Blood Pressure 120/79 Pulse Oximetry 96 95 11/28/20 02:00 11/28/20 03:30 11/28/20 04:00 Temperature 36.3 C L Pulse Rate 86 89 83 Respiratory Rate 30 H 28 H Blood Pressure 149/93 H Pulse Oximetry 95 98 11/28/20 06:00 11/28/20 07:54 11/28/20 08:00 Temperature 37.1 C Pulse Rate 89 117 H 91 Respiratory Rate 28 H Blood Pressure 139/91 H Pulse Oximetry 97 11/28/20 08:25 11/28/20 09:50 11/28/20 10:00 Temperature Pulse Rate 95 95 101 H Respiratory Rate 24 H 20 Blood Pressure Pulse Oximetry 97 93 11/28/20 12:00 11/28/20 12:20 11/28/20 12:25 Temperature 37.2 C Pulse Rate 100 105 H 100 Respiratory Rate 30 H 24 H 24 H Blood Pressure 137/68 Pulse Oximetry 90 88 L 95 Intake/Output Intake/Output: Intake & Output 11/25/20 11/26/20 11/27/20 11/28/20 23:59 23:59 23:59 23:59 Intake Total 219 910 350 Output Total 8540 724 Balance 090 -652 -039 Meds/Results Medications: Active Medications Generic Name Dose Route Start Las
[2020-11-28] MEDS: BARICITINIB 2 MG TABLET 4 MG PO (17:27)
[2020-11-28] MEDS: ROSUVASTATIN 10 MG TABLET 20 MG PO (21:15)
[2020-11-28] MEDS: REMDESIVIR 100 MG/NS 250 ML 100 MG/250 ML BAG 250 MG IVPB (21:16)
[2020-11-29] VITALS (17 sets, daily range): BP systolic 106–146; BP diastolic 65–103; PULSE 81–110; RESP 18–28; TEMP 35.7–36.9; O2SAT 92–100
[2020-11-29 05:38] LABS: Basophils Percent Auto 0.2 % (0.2-1.2); Hematocrit 49.9 % (42.0-52.0); Hemoglobin 16.4 g/dL (14.0-18.0); Immature Granulocyte Absolute 0.13 K/mm3 (0.00-0.031); Immature Granulocyte Percent A 1.4 % (0-0.5); Lymphocytes Absolute Auto 1.39 K/mm3 (0.9-3.2); Lymphocytes Percent Auto 14.7 % (18.3-44.2); Mean Corpuscular HGB Conc 32.9 g/dl (32-36); Mean Corpuscular Hemoglobin 32.7 pg (26-34); Mean Corpuscular Volume 99.6 fl (80-100); Mean Platelet Volume 10.2 fl (7.4-10.4); Monocytes Absolute Auto 1.1 K/mm3 (0.1-0.6); Monocytes Percent Auto 11.8 % (2.6-8.5); Neutrophils Absolute Auto 6.8 K/mm3 (1.3-6.7); Neutrophils Percent Auto 71.9 % (45.5-73.1); Platelet Count Result 351 k/mm3 (150-375); Red Blood Count 5.01 M/mm3 (4.6-6.20); Red Cell Distribution Width 14.6 % (11.5-14.5); White Blood Count 9.5 K/mm3 (4.5-10.0)
[2020-11-29 06:03] LABS: INR 1.3; Prothrombin Time 15.6 Seconds (11.1-14.7)
[2020-11-29 06:04] LABS: Alanine Aminotransferase 45 U/L (4-50); Albumin Level 3.4 g/dL (3.5-5.1); Alkaline Phosphatase 79 U/L (38-126); Anion Gap 4 mmol/L (8-16); Aspartate Amino Transferase 61 U/L (17-59); Bilirubin,Total 0.6 mg/dL (0.2-1.3); Blood Urea Nitrogen 58 mg/dL (9-20); Calcium 8.1 mg/dL (8.4-10.2); Carbon Dioxide 31 mmol/L (22-30); Chloride 109 mmol/L (98-107); Estimated CRCL calculation 47 ml/min; Estimated Glomerular Filt Rate 58; Glucose 171 mg/dL (65-110); Potassium 4.3 mmol/L (3.4-5.0); Sodium 144 mmol/L (137-145)
--- NOTE | 2020-11-29 08:51 | PM.PNPUL ---
Progress Note: A&P Assessment and Plan (1) Pneumonia due to COVID-19 virus: Code(s): U07.1 - COVID-19; J12.82 - Pneumonia due to coronavirus disease 2019 Status: Acute Assessment and Plan: Patient tested positive for COVID-19 on 11/16 and started on remdesivi 11/26, dexamethasone on 11/27 and tocilizumab not available. Spoke with pharmacy and baricitinib 4 mg PO Q day started 11/27. Emperically started on ceftriaxone and azithromycin. - Remdesivir for 10 days Unless he should recover and tolerate room air with rest, ambulation and while sleeping. - Dexamethasone 6 mg IV for 10 days - Continuous pulse oximetry - Prone positioning as tolerated. - Avoid any fluid overload. - emperic azihtromycin and ceftraixone for CAP. DC after blood cultures negative for 48 hours. - DC bronchodilators as AFIB - Lovenox full dose for AFIB. 11/27 CXR worsening infiltrates today. AVAPS ABG without hypercarbia 7.. Worsening clinically with worsening hypoxia. I have changed him to AVAPS mode and will check a blood gas in 30 minutes to assess for hypercarbic respiratory failure. 11/27 I spoke with the bedside nurse and Dr. Mosher to talk to regarding code status. I spoke with assistant professor who already had heard about patient from Dr. Mosher. 11/28 Unchanged on continuous BiPAP, FIO2 decreased from 80 to 60%. attempt Airvo 60L and 100% along with 100% NRB mask later today. Tollrated Airvo 60L and 75% with overlying 100% NRB 11/29 On AVAPS mode overnight at 80%. Confused at times. I placed him on Airvo 60 L and 90% FiO2 this morning and his saturations were 93%. Cultures negative and will DC ceftraixone and azithromycin. Currently on optimal therapy and if he survives he should have home O2 assessment an overnight oximetry prior to discharge to determine his oxygen needs. Patient should have chest x-ray prior to discharge to serve as a new baseline. Will sign off for now, call with any questions. (2) Acute respiratory failure with hypoxia: Code(s): J96.01 - Acute respiratory failure with hypoxia Status: Acute Assessment and Plan: Etiology of hypoxic respiratory failure is likely COVID pneumonia. Echo noted with EF 55-60%mild , AR, MR, and TR without calculated RVSP. 11/26 Initial saturations on 11/26 were 84% on room air at 7:30 a.m.. 11/26 3:00 p.m. patient required 6 L nasal cannula for saturations 94%. 11/26 8:00 p.m. required 15 L nasal cannula for saturations 91%. 11/27 2:00 a.m. patient required BiPAP with a rate of 10, pressure is 18/6 and 80% for saturations 95%. 11/27 11:45 a.m. AVAPS mode with a backup rate of 24, tidal volume 550, EPAP 6, minimal inspiratory pressure 7, maximal inspiratory pressure 25, inspiratory time 1.0 seconds, rise of to and 80%. Saturations were 95%. ABG 7.48/68. 11/28 08:15 AVAPS mode with FIO2 60% and sats 94%, attempt Airvo 60L and 100% along with 100% NRB mask later today. 11/28 20:00 Airvo 60L and 75% with overlying 100% NRB with sats 93% 11/29 08:00 On AVAPS mode overnight at 80%. I placed him on Airvo 60 L and 90% FiO2 this morning and his saturations were 93%. Goal saturations 90-94% and wean supplemental oxygen as tolerated. Subjective Date/time seen: 11/29/20 08:51 Interval history: Narrative: This is a new Pulmonary consult for COVID pneumonia with hypoxemic respiratory failure 80-year-old man with a history of dementia who tested positive for COVID by report on 11/16/20. Patient was weak and on 11/26 he fell off the toilet seat an EMS was called. Saturations were in the 80% and he was brought to the emergency department. Patient had a white blood cell count of 6.1, CRP of 24.6, creatinine 1.2, BNP 2170 and a chest x-ray that showed diffuse bilateral interstitial and alveolar infiltrates. Patient was started on Remdesivir on 11/26. Initial saturations on 11/26 were 84% on room air at 7:30 a.m.. At 3:00 p.m. patient required 6 L nasal cannula for satura
[2020-11-29] MEDS: ENOXAPARIN 80 MG/0.8 ML SYRINGE 75 MG SUB-Q ×2 (09:52→20:47)
[2020-11-29] MEDS: PANTOPRAZOLE 40 MG TABLET PO (09:52)
[2020-11-29] MEDS: BENZONATATE 100 MG CAPSULE 200 MG PO ×3 (09:52→17:45)
[2020-11-29] MEDS: ASPIRIN 81 MG CHEWABLE TABLET PO (09:53)
--- NOTE | 2020-11-29 11:28 | PM.PNCARD ---
Progress Note: A&P Assessment and Plan (1) Pneumonia due to COVID-19 virus: Code(s): U07.1 - COVID-19; J12.82 - Pneumonia due to coronavirus disease 2018 Status: Acute Assessment and Plan: 80-year-old male with history of dementia; no known prior cardiac history. Patient admitted to the hospital with generalized weakness, found to be hypoxemic. Recent diagnosis of COVID-19 infection, with COVID pneumonia and worsening respiratory status. Patient currently on BiPAP with 80% FiO2. He has also receiving antibiotics, steroids, remdesivir. management as per Primary Team, pulmonology gentle diuresis (2) Acute respiratory failure with hypoxia: Code(s): J96.01 - Acute respiratory failure with hypoxia Status: Acute Assessment and Plan: Management as per Primary Team, pulmonology (3) Atrial fibrillation: Code(s): I48.91 - Unspecified atrial fibrillation Status: Acute Assessment and Plan: Remains atrial fibrillation with heart rates in 80s to 100s. Patient unable to take p.o. medications at this time - Metoprolol 5mg IV p.r.n. Continue to monitor for now. Patient is currently receiving lovenox for anticoagulation. We will continue to follow him on an as needed basis Subjective Date/time seen: 11/29/20 11:28 Interval history: Remain on BiPAP all night. Was switched to Airvo and and non-rebreather this morning is saturating in low 90s on 70% FiO2 at 60 liters/minute Date of visit 11/28/2020: He is short of breath. No chest pain. Review of Systems Review of Systems: All systems reviewed & are unremarkable except as noted in HPI and below ROS unobtainable: Yes unobtainable due to medical condition (Unable to obtain, patient has dementia and is on BiPAP) and other (Information gathered from the review of the chart and from the staff) Constitutional: Constitutional: Reports weakness Cardiovascular: Cardiovascular: Denies chest pain and Reports dyspnea Respiratory: Respiratory: Reports dyspnea Neurologic: Reports weakness Hematologic/Lymphatic: Hematologic/Lymphatic: Denies easy bleeding Exam Narrative: PHYSICAL EXAMINATION: GENERAL: Alert MENTAL STATUS: affect appropriate to mood EYES: Extraocular movements intact EARS: External ears appear normal NOSE: On BiPAP MOUTH: On BiPAP NECK: Supple CHEST: Decreased effort HEART: Tachycardia, irregular rhythm ABDOMEN: Soft, nontender NEUROLOGICAL: Alert MUSCULOSKELETAL: no amputation EXTREMITIES: No pedal edema SKIN: no rash on the exposed area PSYCHIATRIC: appropriate affect Objective Data Vital Signs Vital Signs: Vital Signs - 24 hr 11/28/20 12:00 11/28/20 12:20 11/28/20 12:25 Temperature 37.2 C Pulse Rate 93 105 H 100 Respiratory Rate 30 H 24 H 24 H Blood Pressure 137/68 Pulse Oximetry 95 88 L 95 11/28/20 14:00 11/28/20 16:00 11/28/20 16:19 Temperature 36.5 C Pulse Rate 107 H 111 H 103 H Respiratory Rate 23 H Blood Pressure 128/74 Pulse Oximetry 93 97 11/28/20 18:00 11/28/20 18:37 11/28/20 18:56 Temperature 35.9 C L 36.3 C L Pulse Rate 97 80 114 H Respiratory Rate 20 22 H Blood Pressure 134/89 129/77 Pulse Oximetry 95 93 11/28/20 20:00 11/28/20 22:00 11/28/20 23:12 Temperature Pulse Rate 112 H 103 H Respiratory Rate 22 H 28 H Blood Pressure Pulse Oximetry 93 95 11/29/20 00:00 11/29/20 02:00 11/29/20 04:00 Temperature 35.7 C L 36.6 C Pulse Rate 88 103 H 84 Respiratory Rate 26 H 20 Blood Pressure 126/87 120/77 Pulse Oximetry 99 97 11/29/20 06:00 11/29/20 08:00 11/29/20 08:15 Temperature 36.9 C Pulse Rate 89 81 Respiratory Rate 26 H Blood Pressure 143/91 H Pulse Oximetry 93 93 Intake/Output Intake/Output: Intake & Output 11/26/20 11/27/20 11/28/20 11/29/20 23:59 23:59 23:59 23:59 Intake Total 219 910 590 Output Total 0811 261 726 Balance 651 -863 -217 -700 Meds/Results Medications:
--- NOTE | 2020-11-29 13:43 | PM.IMPN ---
Progress Note: A&P Assessment and Plan (1) Acute respiratory failure with hypoxia: Code(s): J96.01 - Acute respiratory failure with hypoxia Status: Acute Assessment and Plan: ON OXYGEN SUPPLEMENTATION TRY AND KEEP OXYGEN SATURATION AT 94% Will move from BiPAP to high-flow nasal cannula LIKELY SECONDARY TO COVID PNEUMONIA CONTINUE TO MONITOR SUPPORTIVE CARE Recently diagnosed with COVID unsure when CRP 24 BNP elevated at 2170 Given a dose IV Lasix 1 time yesterday at 11/27 (2) Pneumonia due to COVID-19 virus: Code(s): U07.1 - COVID-19; J12.82 - Pneumonia due to coronavirus disease 2019 Status: Acute Assessment and Plan: STARTED ON REMDESIVIR ROCEPHIN AND ZITHROMAX FOR ADDED ANTIBACTERIAL COVERAGE WBC count is normal however does have neutrophilia DEXAMETHASONE has ordered along with the remdesivir monitor CRP Pulmonary consulted added on Baricitinib. Tocilizumab not available (3) Atrial fibrillation and flutter: Code(s): I48.91 - Unspecified atrial fibrillation; I48.92 - Unspecified atrial flutter Status: Acute Assessment and Plan: APPARENTLY NEW ONSET STARTED ON THERAPEUTIC LOVENOX ECHOCARDIOGRAM today Had metoprolol 12.5 mg p.o. b.i.d. was switched to IV metoprolol p.r.n. (4) Elevated troponin I level: Code(s): R77.8 - Other specified abnormalities of plasma proteins Status: Acute Assessment and Plan: Trend flat EKG WITH NO T-WAVE OR ST SEGMENT CHANGES Likely type 2 [place] Cardiology on board (5) Chronic kidney disease: Code(s): N18.9 - Chronic kidney disease, unspecified Status: Acute Assessment and Plan: BUN 27 CREATININE OF 1.2 CONTINUE TO MONITOR AVOID NEPHROTOXICS (6) Dementia: Code(s): F03.90 - Unspecified dementia without behavioral disturbance Status: Acute Assessment and Plan: SUPPORTIVE CARE ON NO MEDS (7) Generalized weakness: Code(s): R53.1 - Weakness Status: Acute Assessment and Plan: PT OT (8) Fall: Code(s): W19.XXXA - Unspecified fall, initial encounter Status: Acute Assessment and Plan: He had a CT head negative Subjective Date/time seen: 11/29/20 13:43 Interval history: No overnight events. He was on BiPAP overnight. He was switched to Airvo this morning. His his he is feeling okay. Denies any shortness of breath if he is not moving. Denies any chest pain Review of Systems Review of Systems: All systems reviewed & are unremarkable except as noted in HPI and below (HPI however limited advanced dementia) Exam Narrative: GENERAL: Well-appearing, well-nourished, and in no acute distress. On Airvo HEAD: Normocephalic, atraumatic. EYES: PERRLA and EOMI. NECK: Supple. Nontender CHEST: Coarse breath sounds. No respiratory distress. HEART: Irregularly irregular No murmur heard. Normal peripheral pulses. ABDOMEN: Soft, nontender, nondistended, normal active bowel sounds. EXTREMITIES: Normal range of motion. No edema. Stool in the lower extremities SKIN: Warm, dry, no rash. NEURO: No focal deficits. Alert and conversant Objective Data Vital Signs Vital Signs: Vital Signs - 24 hr 11/28/20 14:00 11/28/20 16:00 11/28/20 16:19 Temperature 97.7 F Pulse Rate 107 H 111 H 103 H Respiratory Rate 23 H Blood Pressure 128/74 Pulse Oximetry 93 97 11/28/20 18:00 11/28/20 18:37 11/28/20 18:56 Temperature 96.7 F L 97.3 F L Pulse Rate 97 80 114 H Respiratory Rate 20 22 H Blood Pressure 134/89 129/77 Pulse Oximetry 95 93 11/28/20 20:00 11/28/20 22:00 11/28/20 23:12 Temperature Pulse Rate 112 H 103 H Respiratory Rate 22 H 28 H Blood Pressure Pulse Oximetry 93 95 11/29/20 00:00 11/29/20 02:00 11/29/20 04:00 Temperature 96.3 F L 97.9 F Pulse Rate 88 103 H 84 Respiratory Rate 26 H 20 Blood Pressure 126/87 120/77 Pulse Oximetry 99 97 11/29/20 06:00 11/29/20 08:00 11/29/20 08:15 Temperature
[2020-11-29] MEDS: BARICITINIB 2 MG TABLET 4 MG PO (17:45)
[2020-11-29] MEDS: ROSUVASTATIN 10 MG TABLET 20 MG PO (20:47)
[2020-11-29] MEDS: REMDESIVIR 100 MG/NS 250 ML 100 MG/250 ML BAG 250 MG IVPB (21:49)
[2020-11-30] VITALS (18 sets, daily range): BP systolic 142–173; BP diastolic 87–114; PULSE 63–98; RESP 20–31; TEMP 35.9–37.1; O2SAT 93–99
[2020-11-30 07:29] LABS: Basophils Percent Auto 0.2 % (0.2-1.2); Hematocrit 44.9 % (42.0-52.0); Hemoglobin 14.6 g/dL (14.0-18.0); Immature Granulocyte Absolute 0.17 K/mm3 (0.00-0.031); Immature Granulocyte Percent A 1.7 % (0-0.5); Lymphocytes Absolute Auto 0.96 K/mm3 (0.9-3.2); Lymphocytes Percent Auto 9.4 % (18.3-44.2); Mean Corpuscular HGB Conc 32.5 g/dl (32-36); Mean Corpuscular Hemoglobin 32.7 pg (26-34); Mean Corpuscular Volume 100.4 fl (80-100); Mean Platelet Volume 10.1 fl (7.4-10.4); Monocytes Percent Auto 9.5 % (2.6-8.5); Neutrophils Percent Auto 79.2 % (45.5-73.1); Platelet Count Result 314 k/mm3 (150-375); Red Blood Count 4.47 M/mm3 (4.6-6.20); Red Cell Distribution Width 14.4 % (11.5-14.5); White Blood Count 10.2 K/mm3 (4.5-10.0)
[2020-11-30 07:39] LABS: INR 1.3; Prothrombin Time 15.6 Seconds (11.1-14.7)
[2020-11-30 07:54] LABS: Alanine Aminotransferase 37 U/L (4-50); Albumin Level 2.9 g/dL (3.5-5.1); Alkaline Phosphatase 79 U/L (38-126); Anion Gap 6 mmol/L (8-16); Aspartate Amino Transferase 48 U/L (17-59); Bilirubin,Total 0.5 mg/dL (0.2-1.3); Blood Urea Nitrogen 51 mg/dL (9-20); Calcium 7.8 mg/dL (8.4-10.2); Carbon Dioxide 24 mmol/L (22-30); Chloride 112 mmol/L (98-107); Estimated CRCL calculation 53 ml/min; Estimated Glomerular Filt Rate > 60; Glucose 179 mg/dL (65-110); Potassium 4.2 mmol/L (3.4-5.0); Sodium 142 mmol/L (137-145)
[2020-11-30] MEDS: PANTOPRAZOLE 40 MG TABLET PO (08:57)
[2020-11-30] MEDS: ASPIRIN 81 MG CHEWABLE TABLET PO (08:57)
[2020-11-30] MEDS: ENOXAPARIN 80 MG/0.8 ML SYRINGE 75 MG SUB-Q ×2 (08:57→21:14)
[2020-11-30] MEDS: BENZONATATE 100 MG CAPSULE 200 MG PO ×3 (08:57→17:00)
--- NOTE | 2020-11-30 11:58 | PM.PNCARD ---
Progress Note: A&P Assessment and Plan (1) Pneumonia due to COVID-19 virus: Code(s): U07.1 - COVID-19; J12.82 - Pneumonia due to coronavirus disease 2018 Status: Acute Assessment and Plan: 80-year-old male with history of dementia; no known prior cardiac history. Patient admitted to the hospital with generalized weakness, found to be hypoxemic. Recent diagnosis of COVID-19 infection, with COVID pneumonia and worsening respiratory status. Patient currently on BiPAP with 80% FiO2. He has also receiving antibiotics, steroids, remdesivir. management as per Primary Team, pulmonology gentle diuresis (2) Acute respiratory failure with hypoxia: Code(s): J96.01 - Acute respiratory failure with hypoxia Status: Acute Assessment and Plan: Management as per Primary Team, pulmonology (3) Atrial fibrillation: Code(s): I48.91 - Unspecified atrial fibrillation Status: Acute Assessment and Plan: Remains atrial fibrillation with heart rates in 80s to 100s. Heart rate is much better controlled Patient unable to take p.o. medications at this time - Metoprolol 5mg IV p.r.n. Continue to monitor for now. Patient is currently receiving lovenox for anticoagulation. We will continue to follow him on an as needed basis Subjective Date/time seen: 11/30/20 11:58 Interval history: Remain on BiPAP all night. Was switched to Airvo and and non-rebreather this morning is saturating in low 90s on 70% FiO2 at 60 liters/minute Date of visit 11/30/2020: He is still short of breath seem slightly more comfortable. No chest pain Review of Systems Review of Systems: All systems reviewed & are unremarkable except as noted in HPI and below ROS unobtainable: Yes unobtainable due to medical condition (Unable to obtain, patient has dementia and is on BiPAP) and other (Information gathered from the review of the chart and from the staff) Constitutional: Constitutional: Reports weakness Cardiovascular: Cardiovascular: Denies chest pain and Reports dyspnea Respiratory: Respiratory: Reports dyspnea Neurologic: Reports weakness Hematologic/Lymphatic: Hematologic/Lymphatic: Denies easy bleeding Exam Narrative: PHYSICAL EXAMINATION: GENERAL: Alert MENTAL STATUS: affect appropriate to mood EYES: Extraocular movements intact EARS: External ears appear normal NOSE: On BiPAP MOUTH: On BiPAP NECK: Supple CHEST: Decreased effort HEART: irregular rhythm ABDOMEN: Soft, nontender NEUROLOGICAL: Alert MUSCULOSKELETAL: no amputation EXTREMITIES: No pedal edema SKIN: no rash on the exposed area PSYCHIATRIC: appropriate affect Objective Data Vital Signs Vital Signs: Vital Signs - 24 hr 11/29/20 12:00 11/29/20 14:00 11/29/20 15:36 Temperature 36.4 C L Pulse Rate 87 84 100 Respiratory Rate 20 24 H Blood Pressure 146/103 H Pulse Oximetry 93 99 11/29/20 16:00 11/29/20 16:07 11/29/20 18:00 Temperature 36.4 C L Pulse Rate 110 H 103 H 105 H Respiratory Rate 18 24 H Blood Pressure 106/65 Pulse Oximetry 92 93 11/29/20 20:00 11/29/20 22:00 11/29/20 22:04 Temperature 36.5 C Pulse Rate 82 100 Respiratory Rate 20 22 H Blood Pressure 110/65 Pulse Oximetry 96 11/29/20 23:45 11/30/20 00:00 11/30/20 02:00 Temperature 36.2 C L Pulse Rate 86 83 71 Respiratory Rate 26 H 20 Blood Pressure 152/87 H Pulse Oximetry 97 98 11/30/20 02:30 11/30/20 04:00 11/30/20 06:00 Temperature 36.1 C L Pulse Rate 81 80 86 Respiratory Rate 26 H 30 H Blood Pressure 142/111 H Pulse Oximetry 96 97 11/30/20 08:00 11/30/20 10:00 Temperature 35.9 C L Pulse Rate 79 90 Respiratory Rate 31 H Blood Pressure 157/114 H Pulse Oximetry 94 Intake/Output Intake/Output: Intake & Output 11/27/20 11/28/20 11/29/20 11/30/20 23:59 23:59 23:59 23:59 Intake Total 910 940 840 150 Output Total 9778 615 2652 700 Balance -865 65 -360 -550 Meds/R
--- NOTE | 2020-11-30 12:54 | PCDIET ---
Nutrition Follow-Up Complete: Nutrition Diagnosis: Inadequate oral intake related to respiratory failure as evidenced by intake records. Nutrition Goal: Patient to meet estimated nutritional needs. Goal in progress. Patient consuming 0-100% of meals on minced and moist, heart healthy diet with level 3 liquids. Attempted to contact patient via phone due to COVID precautions with no answer. Recommend liberalizing diet by removing heart healthy restriction and continuing Ensure Compact BID. If intakes improve, could consider carbohydrate control in diet. Will follow closely for acceptance and provide additional recommendations, as needed. Last recorded weight is 75 kg which is down from last review. -I/O. Bowel Motility: No documented BM as of yet. If medically appropriate, could consider adding medication to promote BM. Labs Reviewed: WBC (10.2), RBC (4.47), Glu (179), BUN (51), Alb (2.9), Breezy Ca (8.68) Meds Noted: Lopressor, Protonix, Zithromax, Rocephin, Decadron, Remdesivir, Crestor Additional Notes: No documented skin breakdown. Will continue to monitor with same goal. Nutrition Monitoring and Evaluation: Follow up every 3 days.
--- NOTE | 2020-11-30 13:44 | PM.IMPN ---
Progress Note: A&P Assessment and Plan (1) Acute respiratory failure with hypoxia: Code(s): J96.01 - Acute respiratory failure with hypoxia Status: Acute Assessment and Plan: ON OXYGEN SUPPLEMENTATION TRY AND KEEP OXYGEN SATURATION AT 94% Will move from BiPAP to high-flow nasal cannula LIKELY SECONDARY TO COVID PNEUMONIA CONTINUE TO MONITOR SUPPORTIVE CARE Recently diagnosed with COVID unsure when CRP 24 BNP elevated at 2170 Given a dose IV Lasix 1 time yesterday at 11/27 (2) Pneumonia due to COVID-19 virus: Code(s): U07.1 - COVID-19; J12.82 - Pneumonia due to coronavirus disease 2019 Status: Acute Assessment and Plan: STARTED ON REMDESIVIR ROCEPHIN AND ZITHROMAX FOR ADDED ANTIBACTERIAL COVERAGE WBC count is normal however does have neutrophilia DEXAMETHASONE has ordered along with the remdesivir monitor CRP Pulmonary consulted added on Baricitinib. Tocilizumab not available (3) Atrial fibrillation and flutter: Code(s): I48.91 - Unspecified atrial fibrillation; I48.92 - Unspecified atrial flutter Status: Acute Assessment and Plan: APPARENTLY NEW ONSET STARTED ON THERAPEUTIC LOVENOX ECHOCARDIOGRAM today Had metoprolol 12.5 mg p.o. b.i.d. was switched to IV metoprolol p.r.n. (4) Elevated troponin I level: Code(s): R77.8 - Other specified abnormalities of plasma proteins Status: Acute Assessment and Plan: Trend flat EKG WITH NO T-WAVE OR ST SEGMENT CHANGES Likely type 2 [place] Cardiology on board (5) Chronic kidney disease: Code(s): N18.9 - Chronic kidney disease, unspecified Status: Acute Assessment and Plan: BUN 27 CREATININE OF 1.2 CONTINUE TO MONITOR AVOID NEPHROTOXICS (6) Dementia: Code(s): F03.90 - Unspecified dementia without behavioral disturbance Status: Acute Assessment and Plan: SUPPORTIVE CARE ON NO MEDS (7) Generalized weakness: Code(s): R53.1 - Weakness Status: Acute Assessment and Plan: PT OT (8) Fall: Code(s): W19.XXXA - Unspecified fall, initial encounter Status: Acute Assessment and Plan: He had a CT head negative Subjective Date/time seen: 11/30/20 13:44 Interval history: was on BiPAP overnight. Switch to Airvo and placed on 65% FiO2 which is better than what it was. He feels better denies any shortness of breath no chest pain Review of Systems Review of Systems: All systems reviewed & are unremarkable except as noted in HPI and below (HPI however limited advanced dementia) Exam Narrative: GENERAL: Well-appearing, well-nourished, and in no acute distress. On Airvo HEAD: Normocephalic, atraumatic. EYES: PERRLA and EOMI. NECK: Supple. Nontender CHEST: Coarse breath sounds. No respiratory distress. HEART: Irregularly irregular No murmur heard. Normal peripheral pulses. ABDOMEN: Soft, nontender, nondistended, normal active bowel sounds. EXTREMITIES: Normal range of motion. No edema. Stool in the lower extremities SKIN: Warm, dry, no rash. NEURO: No focal deficits. Alert and conversant Objective Data Vital Signs Vital Signs: Vital Signs - 24 hr 11/29/20 14:00 11/29/20 15:36 11/29/20 16:00 Temperature 97.5 F L Pulse Rate 84 100 110 H Respiratory Rate 24 H 18 Blood Pressure 106/65 Pulse Oximetry 99 92 11/29/20 16:07 11/29/20 18:00 11/29/20 20:00 Temperature 97.7 F Pulse Rate 103 H 105 H 82 Respiratory Rate 24 H 20 Blood Pressure 110/65 Pulse Oximetry 93 96 11/29/20 22:00 11/29/20 22:04 11/29/20 23:45 Temperature Pulse Rate 100 86 Respiratory Rate 22 H 26 H Blood Pressure Pulse Oximetry 97 11/30/20 00:00 11/30/20 02:00 11/30/20 02:30 Temperature 97.2 F L Pulse Rate 83 71 81 Respiratory Rate 20 26 H Blood Pressure 152/87 H Pulse Oximetry 98 96 11/30/20 04:00 11/30/20 06:00 11/30/20 08:00 Temperature 97 F L 96.6 F L Pulse Rate 80 86 79 Respiratory Rate 30 H 31
[2020-11-30] MEDS: BARICITINIB 2 MG TABLET 4 MG PO (17:00)
[2020-11-30] MEDS: ROSUVASTATIN 10 MG TABLET 20 MG PO (21:13)
[2020-11-30] MEDS: REMDESIVIR 100 MG/NS 250 ML 100 MG/250 ML BAG 250 MG IVPB (21:14)
[2020-12-01] VITALS (21 sets, daily range): BP systolic 145–179; BP diastolic 97–120; PULSE 56–121; RESP 16–32; TEMP 35.9–37.1; O2SAT 94–100
[2020-12-01 05:26] LABS: Basophils Percent Auto 0.1 % (0.2-1.2); Hematocrit 42.3 % (42.0-52.0); Hemoglobin 13.8 g/dL (14.0-18.0); Immature Granulocyte Absolute 0.19 K/mm3 (0.00-0.031); Immature Granulocyte Percent A 1.7 % (0-0.5); Lymphocytes Absolute Auto 0.84 K/mm3 (0.9-3.2); Lymphocytes Percent Auto 7.5 % (18.3-44.2); Mean Corpuscular HGB Conc 32.6 g/dl (32-36); Mean Corpuscular Hemoglobin 32.8 pg (26-34); Mean Corpuscular Volume 100.5 fl (80-100); Mean Platelet Volume 10.4 fl (7.4-10.4); Monocytes Percent Auto 8.8 % (2.6-8.5); Neutrophils Absolute Auto 9.2 K/mm3 (1.3-6.7); Neutrophils Percent Auto 81.9 % (45.5-73.1); Platelet Count Result 350 k/mm3 (150-375); Red Blood Count 4.21 M/mm3 (4.6-6.20); Red Cell Distribution Width 14.4 % (11.5-14.5); White Blood Count 11.2 K/mm3 (4.5-10.0)
[2020-12-01 05:44] LABS: Alanine Aminotransferase 36 U/L (4-50); Albumin Level 2.8 g/dL (3.5-5.1); Alkaline Phosphatase 83 U/L (38-126); Anion Gap 5 mmol/L (8-16); Aspartate Amino Transferase 53 U/L (17-59); Bilirubin,Total 0.5 mg/dL (0.2-1.3); Blood Urea Nitrogen 44 mg/dL (9-20); CRP 4.5 mg/dL (<1.0); Calcium 7.7 mg/dL (8.4-10.2); Carbon Dioxide 26 mmol/L (22-30); Chloride 109 mmol/L (98-107); Estimated CRCL calculation 59 ml/min; Estimated Glomerular Filt Rate > 60; Glucose 205 mg/dL (65-110); Potassium 4.6 mmol/L (3.4-5.0); Sodium 140 mmol/L (137-145)
[2020-12-01] MEDS: PANTOPRAZOLE 40 MG TABLET PO (08:42)
[2020-12-01] MEDS: ENOXAPARIN 80 MG/0.8 ML SYRINGE 75 MG SUB-Q ×2 (08:43→21:21)
[2020-12-01] MEDS: BENZONATATE 100 MG CAPSULE 200 MG PO ×3 (08:43→17:10)
[2020-12-01] MEDS: ASPIRIN 81 MG CHEWABLE TABLET PO (08:46)
[2020-12-01 09:12] LABS: INR 1.2
--- NOTE | 2020-12-01 12:16 | PM.IMPN ---
Progress Note: A&P Assessment and Plan (1) Acute respiratory failure with hypoxia: Code(s): J96.01 - Acute respiratory failure with hypoxia Status: Acute Assessment and Plan: Secondary to COVID PNA O2 by high flow Nasal cannula Keep O2 sat > 94% Recently diagnosed with COVID 11/16 Lasix as needed (2) Pneumonia due to COVID-19 virus: Code(s): U07.1 - COVID-19; J12.82 - Pneumonia due to coronavirus disease 2018 Status: Acute Assessment and Plan: Dexamethasone 10 day finishes 12/06 Remdisivir course finished 12/01 Rocephin and Azithromycin given concern for bacterial pneumonia, now finished 5-day course Pulmonary consulted added on Baricitinib. Tocilizumab not available (3) Atrial fibrillation and flutter: Code(s): I48.91 - Unspecified atrial fibrillation; I48.92 - Unspecified atrial flutter Status: Acute Assessment and Plan: New onset Lovenox AC Metoprolol Cardiology input appreciated Echo 11/27 with EF 55-60%, inc LF wall thickness, RV normal, IVC normal (4) Elevated troponin I level: Code(s): R77.8 - Other specified abnormalities of plasma proteins Status: Acute Assessment and Plan: Trend flat EKG no ST changes Likely type 2 [place] Cardiology input appreciated continue baby aspirin (5) Chronic kidney disease: Code(s): N18.9 - Chronic kidney disease, unspecified Status: Acute Assessment and Plan: Cr now back to baseline 0.9-1.2 (6) Dementia: Code(s): F03.90 - Unspecified dementia without behavioral disturbance Status: Acute Assessment and Plan: Supportive cares Not on meds (7) Generalized weakness: Code(s): R53.1 - Weakness Status: Acute Assessment and Plan: PT OT (8) Fall: Code(s): W19.XXXA - Unspecified fall, initial encounter Status: Acute Assessment and Plan: He had a CT head negative Additional Plan Code status: Full code DVT proph: Therapeutic Lovenox Subjective Date/time seen: 12/01/20 12:16 Stable from resp standpoint. He continues to have cough but less frequent. He is currently on 60 L, 45% high flow cannula O2. Hemodynamically stable. Afebrile. Review of Systems Review of Systems: All systems reviewed & are unremarkable except as noted in HPI and below Exam Narrative: Gen: Alert, NAD, on high flow O2 Abd: Soft, NT, ND Heart: Irregularly irregular Lungs: Bibasilar crackles Ext: Trace bilateral lower extremity edema Objective Data Vital Signs Vital Signs: Vital Signs - 24 hr 11/30/20 14:00 11/30/20 14:39 11/30/20 16:00 Temperature 96.8 F L Pulse Rate 83 90 Respiratory Rate 26 H Blood Pressure 173/105 H Pulse Oximetry 96 98 11/30/20 18:00 11/30/20 20:00 11/30/20 22:00 Temperature 97.7 F Pulse Rate 93 82 73 Respiratory Rate 22 H Blood Pressure 148/90 H Pulse Oximetry 94 11/30/20 22:25 11/30/20 22:32 11/30/20 23:34 Temperature 97.7 F Pulse Rate 63 74 75 Respiratory Rate 25 H 27 H Blood Pressure 154/110 H Pulse Oximetry 93 99 99 12/01/20 00:00 12/01/20 02:00 12/01/20 02:18 Temperature Pulse Rate 67 65 62 Respiratory Rate 27 H 27 H Blood Pressure Pulse Oximetry 99 98 12/01/20 04:00 12/01/20 05:30 12/01/20 05:41 Temperature 97.8 F Pulse Rate 74 73 68 Respiratory Rate 32 H 26 H Blood Pressure 172/120 H 159/107 H Pulse Oximetry 100 99 12/01/20 08:00 12/01/20 08:21 12/01/20 08:59 Temperature 97.4 F L Pulse Rate 62 Respiratory Rate 24 H Blood Pressure 151/105 H Pulse Oximetry 96 95 98 Intake/Output Intake/Output: Intake & Output 11/28/20 11/29/20 11/30/20 12/01/20 23:59 23:59 23:59 23:59 Intake Total 928 607 0609 500 Output Total 875 1200 1600 700 Balance 03 -217 -134 -456 Meds/Results Medications: Active Medications Generic Name Dose Route Start Last Admin Trade Name Freq PRN Reason Stop Dose Admin Acetaminophen
[2020-12-01] MEDS: BARICITINIB 2 MG TABLET 4 MG PO (17:10)
[2020-12-01] MEDS: ROSUVASTATIN 10 MG TABLET 20 MG PO (21:22)
[2020-12-02] VITALS (19 sets, daily range): BP systolic 143–159; BP diastolic 91–104; PULSE 62–121; RESP 20–34; TEMP 36.2–36.9; O2SAT 87–98
[2020-12-02 05:58] LABS: Alanine Aminotransferase 36 U/L (4-50); Albumin Level 2.8 g/dL (3.5-5.1); Alkaline Phosphatase 88 U/L (38-126); Anion Gap 1 mmol/L (8-16); Aspartate Amino Transferase 58 U/L (17-59); Bilirubin,Total 0.8 mg/dL (0.2-1.3); Blood Urea Nitrogen 42 mg/dL (9-20); Calcium 7.8 mg/dL (8.4-10.2); Carbon Dioxide 27 mmol/L (22-30); Chloride 110 mmol/L (98-107); Estimated CRCL calculation 59 ml/min; Estimated Glomerular Filt Rate > 60; Glucose 187 mg/dL (65-110); Potassium 4.9 mmol/L (3.4-5.0); Sodium 138 mmol/L (137-145)
[2020-12-02] MEDS: ASPIRIN 81 MG CHEWABLE TABLET PO (09:09)
[2020-12-02] MEDS: ENOXAPARIN 80 MG/0.8 ML SYRINGE 75 MG SUB-Q ×2 (09:10→20:41)
[2020-12-02] MEDS: PANTOPRAZOLE 40 MG TABLET PO (09:10)
[2020-12-02] MEDS: BENZONATATE 100 MG CAPSULE 200 MG PO ×3 (09:10→16:20)
--- NOTE | 2020-12-02 11:12 | PM.IMPN ---
Progress Note: A&P Assessment and Plan (1) Acute respiratory failure with hypoxia: Code(s): J96.01 - Acute respiratory failure with hypoxia Status: Acute Assessment and Plan: Secondary to COVID PNA O2 by high flow Nasal cannula Keep O2 sat > 94% Recently diagnosed with COVID 11/16 Lasix as needed (2) Pneumonia due to COVID-19 virus: Code(s): U07.1 - COVID-19; J12.82 - Pneumonia due to coronavirus disease 2018 Status: Acute Assessment and Plan: Dexamethasone 10 day finishes 12/06 Remdisivir course finished 12/01 Rocephin and Azithromycin given concern for bacterial pneumonia, now finished 5-day course Pulmonary consulted added on Baricitinib. Tocilizumab not available (3) Atrial fibrillation and flutter: Code(s): I48.91 - Unspecified atrial fibrillation; I48.92 - Unspecified atrial flutter Status: Acute Assessment and Plan: New onset Lovenox AC, when he can eat transition to PO Metoprolol Cardiology input appreciated Echo 11/27 with EF 55-60%, inc LF wall thickness, RV normal, IVC normal (4) Elevated troponin I level: Code(s): R77.8 - Other specified abnormalities of plasma proteins Status: Acute Assessment and Plan: Trend flat EKG no ST changes Likely type 2 [place] Card[facility] input appreciated continue baby aspirin and metorpolol (5) Chronic kidney disease: Code(s): N18.9 - Chronic kidney disease, unspecified Status: Acute Assessment and Plan: Cr now back to baseline 0.9-1.2 (6) Dementia: Code(s): F03.90 - Unspecified dementia without behavioral disturbance Status: Acute Assessment and Plan: Supportive cares Not on meds (7) Generalized weakness: Code(s): R53.1 - Weakness Status: Acute Assessment and Plan: PT and OT to continue to work with him (8) Fall: Code(s): W19.XXXA - Unspecified fall, initial encounter Status: Acute Assessment and Plan: He had a CT head negative Subjective Date/time seen: 12/02/20 11:12 Interval history: Was on BiPAP overnight. Switched to high flow O2 by OK this AM. Feels tired. Shortness of breath is stable. No chest pain. Hemodynamically stable. Afebrile. Review of Systems Review of Systems: All systems reviewed & are unremarkable except as noted in HPI and below Exam Narrative: Gen: Alert, NAD, on high flow O2 Abd: Soft, NT, ND Heart: Irregularly irregular Lungs: Bibasilar crackles Ext: Trace bilateral lower extremity edema Objective Data Vital Signs Vital Signs: Vital Signs - 24 hr 12/01/20 12:00 12/01/20 12:17 12/01/20 12:20 Temperature Pulse Rate 96 Respiratory Rate Blood Pressure Pulse Oximetry 95 95 12/01/20 13:30 12/01/20 14:00 12/01/20 16:00 Temperature 97.6 F 98.8 F Pulse Rate 56 L 83 121 H Respiratory Rate 22 H 24 H Blood Pressure 155/105 H 179/108 H Pulse Oximetry 95 94 12/01/20 18:00 12/01/20 18:43 12/01/20 20:00 Temperature 96.6 F L Pulse Rate 89 79 65 Respiratory Rate 16 16 Blood Pressure 145/97 H Pulse Oximetry 99 99 12/01/20 21:35 12/01/20 22:00 12/02/20 00:00 Temperature 98.4 F Pulse Rate 78 70 72 Respiratory Rate 24 H 27 H Blood Pressure 152/97 H Pulse Oximetry 98 97 12/02/20 02:00 12/02/20 02:28 12/02/20 04:00 Temperature 97.8 F Pulse Rate 91 72 66 Respiratory Rate 34 H 26 H Blood Pressure 159/99 H Pulse Oximetry 98 96 12/02/20 06:00 12/02/20 08:00 Temperature 97.1 F L Pulse Rate 62 80 Respiratory Rate 20 Blood Pressure 145/97 H Pulse Oximetry 91 Intake/Output Intake/Output: Intake & Output 11/29/20 11/30/20 12/01/20 12/02/20 23:59 23:59 23:59 23:59 Intake Total 840 1265 525 300 Output Total 1200 1600 700 550 Balance -132 -324 -175 -783 Meds/Results Medications: Active Medications Generic Name Dose Route Start Last Admin Trade Name Freq PRN Reason Stop Dose Admin Acetami
[2020-12-02] MEDS: WATER FOR IRRIGATION, STERILE 1,000 ML BOTTLE 1000 ML (13:11)
[2020-12-02] MEDS: BARICITINIB 2 MG TABLET 4 MG PO (16:20)
[2020-12-02] MEDS: ROSUVASTATIN 10 MG TABLET 20 MG PO (20:38)
[2020-12-03] VITALS (17 sets, daily range): BP systolic 137–159; BP diastolic 83–108; PULSE 66–88; RESP 22–26; TEMP 36.2–37.2; O2SAT 92–100
[2020-12-03 06:01] LABS: Alanine Aminotransferase 41 U/L (4-50); Alkaline Phosphatase 94 U/L (38-126); Anion Gap 5 mmol/L (8-16); Aspartate Amino Transferase 56 U/L (17-59); Blood Urea Nitrogen 39 mg/dL (9-20); Calcium 8.1 mg/dL (8.4-10.2); Carbon Dioxide 24 mmol/L (22-30); Chloride 102 mmol/L (98-107); Estimated CRCL calculation 59 ml/min; Estimated Glomerular Filt Rate > 60; Glucose 168 mg/dL (65-110); Sodium 131 mmol/L (137-145)
[2020-12-03] MEDS: ASPIRIN 81 MG CHEWABLE TABLET PO (08:41)
[2020-12-03] MEDS: PANTOPRAZOLE 40 MG TABLET PO (08:41)
[2020-12-03] MEDS: BENZONATATE 100 MG CAPSULE 200 MG PO ×2 (08:41→16:39)
[2020-12-03] MEDS: ENOXAPARIN 80 MG/0.8 ML SYRINGE 75 MG SUB-Q ×2 (08:41→21:14)
--- NOTE | 2020-12-03 11:23 | PCDIET ---
Nutrition Follow-Up Complete: Nutrition Diagnosis: Inadequate oral intake related to respiratory failure as evidenced by intake records. Nutrition Goal: Patient to meet estimated nutritional needs. Goal in progress. Average intake since last review is about 25% of recorded meals on heart healthy, minced and moist diet with moderately thick liquids and Ensure Compact BID. Recommend increasing Ensure Compact to TID and removing heart healthy component. Attempted to contact patient via phone due to COVID precautions with no answer. Spoke with nurse aid earlier today who reports patient is not eating very much but was attempting breakfast. Last recorded weight is 75 kg which is stable. Bowel Motility: No documented BM. If medically appropriate, recommend medication to promote BM. Labs Reviewed: Glu (168), BUN (39), Na (131), Alb (3.0), Breezy Ca (8.9) Meds Noted: Decadron, Lopressor, Protonix, Crestor Additional Notes: No skin breakdown documented. Will continue to monitor with same goal. Nutrition Monitoring and Evaluation: Follow up every 3 days.
--- NOTE | 2020-12-03 13:52 | PM.IMPN ---
Progress Note: A&P Assessment and Plan (1) Acute respiratory failure with hypoxia: Code(s): J96.01 - Acute respiratory failure with hypoxia Status: Acute Assessment and Plan: Secondary to COVID PNA O2 by high flow Nasal cannula Keep O2 sat > 94% Recently diagnosed with COVID 11/16 Lasix as needed (2) Pneumonia due to COVID-19 virus: Code(s): U07.1 - COVID-19; J12.82 - Pneumonia due to coronavirus disease 2018 Status: Acute Assessment and Plan: Dexamethasone 10 day finishes 12/06 Remdisivir course finished 12/01 Rocephin and Azithromycin given concern for bacterial pneumonia, now finished 5-day course Pulmonary consulted added on Baricitinib. Tocilizumab not available CXR 12/03 slight improvement in bilateral infiltrates (3) Atrial fibrillation and flutter: Code(s): I48.91 - Unspecified atrial fibrillation; I48.92 - Unspecified atrial flutter Status: Acute Assessment and Plan: New onset Lovenox AC, when he can eat transition to PO Metoprolol Cardiology input appreciated Echo 11/27 with EF 55-60%, inc LF wall thickness, RV normal, IVC normal (4) Elevated troponin I level: Code(s): R77.8 - Other specified abnormalities of plasma proteins Status: Acute Assessment and Plan: Trend flat EKG no ST changes Likely type 2 [place] Cardiology input appreciated continue baby aspirin and metorpolol (5) Chronic kidney disease: Code(s): N18.9 - Chronic kidney disease, unspecified Status: Acute Assessment and Plan: Cr now back to baseline 0.9-1.2 (6) Dementia: Code(s): F03.90 - Unspecified dementia without behavioral disturbance Status: Acute Assessment and Plan: Supportive cares Not on meds (7) Generalized weakness: Code(s): R53.1 - Weakness Status: Acute Assessment and Plan: PT and OT to continue to work with him (8) Fall: Code(s): W19.XXXA - Unspecified fall, initial encounter Status: Acute Assessment and Plan: He had a CT head negative Additional Plan Code status: Full code DVT proph: Therapeutic Lovenox Subjective Date/time seen: 12/03/20 13:52 Interval history: Stable overnight. No major issues. Remains on high-flow oxygen by nasal cannula. Hemodynamically stable. Afebrile. He feels his shortness of breath is about the same. Review of Systems Review of Systems: All systems reviewed & are unremarkable except as noted in HPI and below Exam Narrative: Gen: Alert, NAD, on high flow O2 Abd: Soft, NT, ND Heart: Irregularly irregular Lungs: Bibasilar crackles Ext: Trace bilateral lower extremity edema Objective Data Vital Signs Vital Signs: Vital Signs - 24 hr 12/02/20 14:00 12/02/20 16:00 12/02/20 18:00 Temperature 97.4 F L Pulse Rate 71 121 H 101 H Respiratory Rate 20 Blood Pressure 152/91 H Pulse Oximetry 91 12/02/20 20:00 12/02/20 20:15 12/02/20 21:14 Temperature 97.4 F L Pulse Rate 75 87 Respiratory Rate 20 25 H Blood Pressure 143/104 H Pulse Oximetry 92 91 96 12/02/20 22:00 12/02/20 23:18 12/02/20 23:31 Temperature Pulse Rate 87 83 Respiratory Rate 29 H Blood Pressure Pulse Oximetry 87 L 94 12/02/20 23:41 12/03/20 00:00 12/03/20 01:56 Temperature 97.5 F L Pulse Rate 68 66 86 Respiratory Rate 25 H 26 H 26 H Blood Pressure 144/96 H Pulse Oximetry 93 93 92 12/03/20 02:00 12/03/20 03:51 12/03/20 04:00 Temperature 97.6 F Pulse Rate 88 75 Respiratory Rate 24 H Blood Pressure 155/104 H Pulse Oximetry 94 96 12/03/20 06:00 12/03/20 08:00 12/03/20 09:37 Temperature 97.1 F L Pulse Rate 84 71 Respiratory Rate 24 H Blood Pressure 156/97 H Pulse Oximetry 95 95 12/03/20 10:00 12/03/20 12:00 Temperature 98.7 F Pulse Rate 77 68 Respiratory Rate 24 H Blood Pressure 155/108 H Pulse Oximetry 100 Intake/Output Intake/Output: Intake & Output
[2020-12-03] MEDS: BARICITINIB 2 MG TABLET 4 MG PO (16:39)
[2020-12-03] MEDS: ROSUVASTATIN 10 MG TABLET 20 MG PO (21:15)
[2020-12-04] VITALS (18 sets, daily range): BP systolic 118–151; BP diastolic 82–98; PULSE 55–89; RESP 19–24; TEMP 36.3–36.8; O2SAT 92–98
[2020-12-04 06:05] LABS: Alanine Aminotransferase 38 U/L (4-50); Albumin Level 2.9 g/dL (3.5-5.1); Alkaline Phosphatase 93 U/L (38-126); Anion Gap 3 mmol/L (8-16); Aspartate Amino Transferase 41 U/L (17-59); Bilirubin,Total 1.1 mg/dL (0.2-1.3); Blood Urea Nitrogen 38 mg/dL (9-20); CRP 2.3 mg/dL (<1.0); Calcium 8.1 mg/dL (8.4-10.2); Carbon Dioxide 21 mmol/L (22-30); Chloride 109 mmol/L (98-107); Estimated CRCL calculation 66 ml/min; Estimated Glomerular Filt Rate > 60; Glucose 141 mg/dL (65-110); Potassium 5.2 mmol/L (3.4-5.0); Sodium 133 mmol/L (137-145)
[2020-12-04] MEDS: PANTOPRAZOLE 40 MG TABLET PO (08:42)
[2020-12-04] MEDS: BENZONATATE 100 MG CAPSULE 200 MG PO ×3 (08:42→16:48)
[2020-12-04] MEDS: ASPIRIN 81 MG CHEWABLE TABLET PO (08:42)
[2020-12-04] MEDS: ENOXAPARIN 80 MG/0.8 ML SYRINGE 75 MG SUB-Q ×2 (08:43→21:29)
--- NOTE | 2020-12-04 14:05 | PM.IMPN ---
Progress Note: A&P Assessment and Plan (1) Acute respiratory failure with hypoxia: Code(s): J96.01 - Acute respiratory failure with hypoxia Status: Acute Assessment and Plan: Secondary to COVID PNA Continue O2 supplementation Keep O2 sat > 94% Recently diagnosed with COVID 11/16 Lasix as needed (2) Pneumonia due to COVID-19 virus: Code(s): U07.1 - COVID-19; J12.82 - Pneumonia due to coronavirus disease 2018 Status: Acute Assessment and Plan: Dexamethasone 10 day finishes 12/06 Remdisivir course finished 12/01 Rocephin and Azithromycin given concern for bacterial pneumonia, now finished 5-day course Pulmonary consulted added on Baricitinib. Tocilizumab not available CXR 12/03 slight improvement in bilateral infiltrates (3) Atrial fibrillation and flutter: Code(s): I48.91 - Unspecified atrial fibrillation; I48.92 - Unspecified atrial flutter Status: Acute Assessment and Plan: New onset Lovenox AC, when he can eat transition to PO Metoprolol Cardiology input appreciated Echo 11/27 with EF 55-60%, inc LF wall thickness, RV normal, IVC normal (4) Elevated troponin I level: Code(s): R77.8 - Other specified abnormalities of plasma proteins Status: Acute Assessment and Plan: Flat trend EKG no ST changes Likely type 2 [place] Cardiology input appreciated Continue baby aspirin and metoprolol (5) Chronic kidney disease: Code(s): N18.9 - Chronic kidney disease, unspecified Status: Acute Assessment and Plan: Cr now back to baseline 0.9-1.2 (6) Dementia: Code(s): F03.90 - Unspecified dementia without behavioral disturbance Status: Acute Assessment and Plan: Supportive cares Not on meds (7) Generalized weakness: Code(s): R53.1 - Weakness Status: Acute Assessment and Plan: PT and OT to continue to work with him (8) Fall: Code(s): W19.XXXA - Unspecified fall, initial encounter Status: Acute Assessment and Plan: He had a CT head negative Subjective Date/time seen: 12/04/20 14:05 Stable overnight. Off high-flow oxygen and currently on 15 L of oxygen on non-rebreather mask. Hemodynamically stable and afebrile. He reports his previous slightly improved. Review of Systems Review of Systems: All systems reviewed & are unremarkable except as noted in HPI and below Exam Narrative: Gen: Alert, NAD, on non-rebreather mask Abd: Soft, NT, ND Heart: Irregularly irregular Lungs: Bibasilar crackles Ext: Trace bilateral lower extremity edema Objective Data Vital Signs Vital Signs: Vital Signs - 24 hr 12/03/20 16:00 12/03/20 18:00 12/03/20 20:00 Temperature 98.9 F 97.9 F Pulse Rate 77 72 73 Respiratory Rate 22 H 22 H Blood Pressure 159/94 H 137/83 Pulse Oximetry 99 99 12/03/20 21:40 12/03/20 22:00 12/03/20 23:43 Temperature 98.6 F Pulse Rate 80 71 Respiratory Rate 22 H Blood Pressure 147/92 H Pulse Oximetry 93 95 12/04/20 00:00 12/04/20 02:00 12/04/20 03:38 Temperature Pulse Rate 63 55 L Respiratory Rate Blood Pressure Pulse Oximetry 96 97 12/04/20 04:00 12/04/20 06:00 12/04/20 07:17 Temperature 98.2 F 97.9 F Pulse Rate 73 73 67 Respiratory Rate 24 H 22 H Blood Pressure 151/95 H 140/84 Pulse Oximetry 95 95 12/04/20 08:00 12/04/20 08:52 12/04/20 10:00 Temperature Pulse Rate 64 83 Respiratory Rate Blood Pressure Pulse Oximetry 97 92 12/04/20 12:00 12/04/20 13:41 Temperature 97.3 F L Pulse Rate 77 68 Respiratory Rate 22 H Blood Pressure 142/82 H Pulse Oximetry 98 97 Intake/Output Intake/Output: Intake & Output 12/01/20 12/02/20 12/03/20 12/04/20 23:59 23:59 23:59 23:59 Intake Total 525 1950 150 240 Output Total 700 1300 2200 900 Balance -175 211 -9245 -058 Meds/Results Medications: Active Medications Generic Name Dose Route Start Last Admin Trade Name F
[2020-12-04] MEDS: SODIUM BICARBONATE 8.4% 150 MEQ in WATER, STERILE FOR INJECTION 950 ML 50 MEQ IV CONT (16:47)
[2020-12-04] MEDS: BARICITINIB 2 MG TABLET 4 MG PO (16:48)
[2020-12-04 17:04] LABS: Fractional Inspired Oxygen 21 %; HCO3 VBG 20.5 mEq/l (24.0-30.0); PO2 VBG 69.8 mmHg (35.0-45.0)
[2020-12-04 17:06] LABS: PCO2 VBG 25.6 mmHg (42.0-48.0); pH VBG 7.522 (7.300-7.400)
[2020-12-04 17:07] LABS: Device OTHER DEVICE
[2020-12-04] MEDS: SODIUM POLYSTYRENE SULFONONATE 15 GM/60 ML BTL PO (18:09)
[2020-12-04] MEDS: ROSUVASTATIN 10 MG TABLET 20 MG PO (21:29)
[2020-12-05] VITALS (15 sets, daily range): BP systolic 104–174; BP diastolic 79–104; PULSE 68–110; RESP 20–26; TEMP 36.1–37.2; O2SAT 91–100
[2020-12-05] MEDS: ASPIRIN 81 MG CHEWABLE TABLET PO (08:32)
[2020-12-05] MEDS: PANTOPRAZOLE 40 MG TABLET PO (08:32)
[2020-12-05] MEDS: BENZONATATE 100 MG CAPSULE 200 MG PO ×3 (08:32→17:38)
[2020-12-05] MEDS: ENOXAPARIN 80 MG/0.8 ML SYRINGE 75 MG SUB-Q (08:32)
[2020-12-05 08:38] LABS: Carbon Dioxide 23 mmol/L (22-30); Estimated CRCL calculation 59 ml/min; Estimated Glomerular Filt Rate > 60; Potassium 4.8 mmol/L (3.4-5.0); Sodium 138 mmol/L (137-145)
[2020-12-05 09:02] LABS: Anion Gap 10 mmol/L (8-16); Blood Urea Nitrogen 46 mg/dL (9-20); Calcium 8.3 mg/dL (8.4-10.2); Chloride 105 mmol/L (98-107); Glucose 137 mg/dL (65-110)
--- NOTE | 2020-12-05 10:00 | PM.IMPN ---
Progress Note: A&P Assessment and Plan (1) Acute respiratory failure with hypoxia: Code(s): J96.01 - Acute respiratory failure with hypoxia Status: Acute Assessment and Plan: Secondary to COVID PNA Continue O2 supplementation, this is now weaned, from high-flow oxygen, and currently he is on nasal cannula, continue to wean Keep O2 sat > 94% Diagnosed with COVID 11/16 Lasix as needed (2) Pneumonia due to COVID-19 virus: Code(s): U07.1 - COVID-19; J12.82 - Pneumonia due to coronavirus disease 2018 Status: Acute Assessment and Plan: Dexamethasone 10 day finishes 12/06 Remdisivir course finished 12/01 Rocephin and Azithromycin given concern for bacterial pneumonia, now finished 5-day course Pulmonary consulted added on Baricitinib. Tocilizumab not available CXR 12/03 slight improvement in bilateral infiltrates (3) Atrial fibrillation and flutter: Code(s): I48.91 - Unspecified atrial fibrillation; I48.92 - Unspecified atrial flutter Status: Acute Assessment and Plan: New onset Lovenox AC, will transition to Apixaban today given now he is eaing Metoprolol Cardiology input appreciated Echo 11/27 with EF 55-60%, inc LF wall thickness, RV normal, IVC normal (4) Elevated troponin I level: Code(s): R77.8 - Other specified abnormalities of plasma proteins Status: Acute Assessment and Plan: Flat trend EKG no ST changes Likely type 2 [place] Cardiology input appreciated Continue baby aspirin and metoprolol (5) Chronic kidney disease: Code(s): N18.9 - Chronic kidney disease, unspecified Status: Acute Assessment and Plan: Cr now back to baseline 0.9-1.2 (6) Dementia: Code(s): F03.90 - Unspecified dementia without behavioral disturbance Status: Acute Assessment and Plan: Supportive cares Not on meds (7) Generalized weakness: Code(s): R53.1 - Weakness Status: Acute Assessment and Plan: PT and OT to continue to work with him, impoving (8) Fall: Code(s): W19.XXXA - Unspecified fall, initial encounter Status: Acute Assessment and Plan: He had a CT head negative Additional Plan Code status: Full code Subjective Date/time seen: 12/05/20 10:00 He is improving from a respiratory status, he was on non-rebreather mask overnight but was not covering his mouth, saturation was 90%. We then transition him to nasal cannula 3 L and he is saturating in the 90s. Still weak but improving. Review of Systems Review of Systems: All systems reviewed & are unremarkable except as noted in HPI and below Exam Narrative: Gen: Alert, NAD, on non-rebreather mask only on his mouth sat 90% Abd: Soft, NT, ND Heart: Irregularly irregular Lungs: Bibasilar crackles Ext: Trace bilateral lower extremity edema Objective Data Vital Signs Vital Signs: Vital Signs - 24 hr 12/04/20 12:00 12/04/20 13:41 12/04/20 14:00 Temperature 97.3 F L Pulse Rate 77 68 69 Respiratory Rate 22 H Blood Pressure 142/82 H Pulse Oximetry 98 97 12/04/20 16:00 12/04/20 17:13 12/04/20 18:00 Temperature 98.2 F Pulse Rate 80 77 89 Respiratory Rate 19 Blood Pressure 118/98 H Pulse Oximetry 97 92 12/04/20 20:00 12/04/20 22:00 12/04/20 23:20 Temperature 97.8 F 97.7 F Pulse Rate 83 74 82 Respiratory Rate 20 20 Blood Pressure 141/90 H 151/92 H Pulse Oximetry 95 97 12/05/20 00:00 12/05/20 02:00 12/05/20 04:00 Temperature 97.8 F Pulse Rate 84 85 83 Respiratory Rate 20 Blood Pressure 104/80 Pulse Oximetry 93 93 12/05/20 06:00 12/05/20 08:56 Temperature 97.7 F Pulse Rate 73 78 Respiratory Rate 21 H Blood Pressure 131/94 H Pulse Oximetry 94 Intake/Output Intake/Output: Intake & Output 12/02/20 12/03/20 12/04/20 12/05/20 23:59 23:59 23:59 23:59 Intake Total 1950 150 360 Output Total 1300 2200 1650 600 Balance 954 -3935 -1290 -600 Meds/R
--- NOTE | 2020-12-05 11:45 | PCDIET ---
Nutrition Follow-Up Complete: Nutrition Diagnosis: Inadequate oral intake related to respiratory failure as evidenced by intake records. Nutrition Goal: Patient to meet estimated nutritional needs. Goal in progress. Average intake from last review remains about 25%, though patient is taking some of the Ensure Compact that is being provided TID. Attempted to contact patient via phone due to COVID precautions with no answer. Recommend continuing close monitoring with supplements TID. Heart healthy, minced and moist diet with level 3 liquids continues. Last recorded weight is 75 kg which is stable. Bowel Motility: No documented BM. Noted patient given Kayexalate on 12/04/20. Recommend additional medication to promote BM, as medically appropriate. Labs Reviewed: Glu (137), K (4.8), Ca (8.3) Meds Noted: Olumiant, Decadron, Protonix, Crestor Additional Notes: Nose scab documented with no other skin issues reported. Will continue to monitor with same goal. Nutrition Monitoring and Evaluation: Follow up every 3 days.
--- NOTE | 2020-12-05 16:13 | ECG_ITS ---
Measurements Intervals [place] Rate: 70 P: 69 NE: 170 QRS: 3 QRSD: 84 T: 137 QT: 422 QTc: 456 Interpretive Statements SINUS RHYTHM BORDERLINE ST-T WAVE ABNORMALITY- DIFFUSE LEADS BASELINE ARTIFACT- AVR, AVL, AVF BORDERLINE ECG Electronically Signed On 12-06-2020 9:41:13 CDT by Hector Grijalva D.O.
[2020-12-05] MEDS: BARICITINIB 2 MG TABLET 4 MG PO (17:38)
[2020-12-05] MEDS: APIXABAN 5 MG TABLET PO (20:37)
[2020-12-05] MEDS: ROSUVASTATIN 10 MG TABLET 20 MG PO (20:37)
--- NOTE | 2020-12-05 21:50 | PC.NURSE ---
This patient, Petar Marquez, was transferred to [facility] on 12/05/20 at 2130. Personal belongings sent with patient. Appropriate documentation sent with patient.
[2020-12-06] VITALS (12 sets, daily range): BP systolic 142–187; BP diastolic 73–113; PULSE 64–84; RESP 16–26; TEMP 36–36.8; O2SAT 88–100
[2020-12-06] MEDS: hydrALAZINE HCL 20 MG/ML VIAL 10 MG IV PUSH (06:31)
[2020-12-06 07:05] LABS: Basophils Percent Auto 0.2 % (0.2-1.2); Hematocrit 42.3 % (42.0-52.0); Hemoglobin 13.8 g/dL (14.0-18.0); Immature Granulocyte Absolute 0.35 K/mm3 (0.00-0.031); Immature Granulocyte Percent A 1.7 % (0-0.5); Lymphocytes Absolute Auto 0.46 K/mm3 (0.9-3.2); Lymphocytes Percent Auto 2.2 % (18.3-44.2); Mean Corpuscular HGB Conc 32.6 g/dl (32-36); Mean Corpuscular Hemoglobin 32.9 pg (26-34); Mean Corpuscular Volume 100.7 fl (80-100); Mean Platelet Volume 10.7 fl (7.4-10.4); Monocytes Absolute Auto 1.1 K/mm3 (0.1-0.6); Monocytes Percent Auto 5.4 % (2.6-8.5); Neutrophils Percent Auto 90.5 % (45.5-73.1); Platelet Count Result 463 k/mm3 (150-375); Red Cell Distribution Width 14.2 % (11.5-14.5)
[2020-12-06 07:30] LABS: Anion Gap 9 mmol/L (8-16); Blood Urea Nitrogen 60 mg/dL (9-20); Calcium 8.1 mg/dL (8.4-10.2); Carbon Dioxide 23 mmol/L (22-30); Chloride 104 mmol/L (98-107); Estimated CRCL calculation 49 ml/min; Estimated Glomerular Filt Rate > 60; Glucose 164 mg/dL (65-110); Potassium 4.6 mmol/L (3.4-5.0); Sodium 136 mmol/L (137-145)
[2020-12-06] MEDS: BENZONATATE 100 MG CAPSULE 200 MG PO ×3 (07:45→17:12)
[2020-12-06] MEDS: ASPIRIN 81 MG CHEWABLE TABLET PO (07:46)
[2020-12-06] MEDS: APIXABAN 5 MG TABLET PO ×2 (07:47→21:30)
[2020-12-06] MEDS: PANTOPRAZOLE 40 MG TABLET PO (07:47)
[2020-12-06] MEDS: BARICITINIB 2 MG TABLET 4 MG PO (17:12)
--- NOTE | 2020-12-06 18:58 | PM.IMPN ---
Progress Note: A&P Additional Plan Progress Note: A&P Assessment and Plan (1) Acute respiratory failure with hypoxia: Code(s): J96.01 - Acute respiratory failure with hypoxia Status: Acute Assessment and Plan: Secondary to COVID PNA Improving from high-flow oxygen, and currently he is on nasal cannula, continue to wean Keep O2 sat > 94% Diagnosed with COVID 11/16 Lasix as needed (2) Pneumonia due to COVID-19 virus: Code(s): U07.1 - COVID-19; J12.82 - Pneumonia due to coronavirus disease 2018 Status: Acute Assessment and Plan: Dexamethasone 10 day completes 12/06 Remdisivir course finished 12/01 Rocephin and Azithromycin given concern for bacterial pneumonia, s/p 5-day course Pulmonary consulted added on Baricitinib. Tocilizumab not available CXR 12/03 slight improvement in bilateral infiltrates (3) Atrial fibrillation and flutter: Code(s): I48.91 - Unspecified atrial fibrillation; I48.92 - Unspecified atrial flutter Status: Acute Assessment and Plan: New onset atrial fibrillation Currently on apixaban ; rate controlled with metoprolol. Echo 11/27 with EF 55-60%, inc LF wall thickness, RV normal, IVC normal (4) Elevated troponin I level: Code(s): R77.8 - Other specified abnormalities of plasma proteins Status: Acute Assessment and Plan: Flat trend EKG no ST changes Likely type 2 [place] Cardiology input appreciated Continue baby aspirin and metoprolol (5) Chronic kidney disease: Code(s): N18.9 - Chronic kidney disease, unspecified Status: Acute kidney injury Assessment and Plan: Cr now back to baseline 0.9-1.2 (6) Dementia: Code(s): F03.90 - Unspecified dementia without behavioral disturbance Status: Acute Assessment and Plan: Supportive cares Not on meds (7) Generalized weakness: Code(s): R53.1 - Weakness Status: Acute Assessment and Plan: PT and OT to continue to work with him, improving. (8) Fall: Code(s): W19.XXXA - Unspecified fall, initial encounter Status: Acute Assessment and Plan: He had a CT head negative. Fall precautions. Discharge to SNF when medically stable. Additional Plan Code status: Full code Subjective Date/time seen: 12/06/20 18:58 Background: this is an 80-year-old male with a past medical history including but not limited to dementia, his is his primary caregiver. Patient is unable to give much history he only answers yes or no and and says ask my . Patient and are both here admitted to the hospice both of them tested positive for COVID. Most of the history has been obtained from medical records obtained in the emergency room. Patient has been very weak lately and his was trained to help him while he was using the toilet he fell off of the toilet seat and was unable to help pain get up EMS was called upon arrival EMS it was noted that patient's oxygen saturation was in the 80's %. Preliminary workup was significant for slight elevated troponin and EKG shows atrial fibrillation, creatinine of 1.2 BUN 27 BNP above 2000, a chest x-ray was significant for diffuse infiltrates. Patient has been admitted for further management treatment and evaluation. S: Patient reports generalized weakness and deconditioning. Interval history: Stable overnight. No major issues. Remains on high-flow oxygen by nasal cannula. Hemodynamically stable. Afebrile. He feels his shortness of breath is about the same. Review of Systems Constitutional: Constitutional: Reports fatigue, Reports lethargy and Reports weakness Cardiovascular: Cardiovascular: Denies chest pain and Denies pedal edema Respiratory: Respiratory: Denies dyspnea Gastrointestinal: Gastrointestinal: Denies abdominal pain, Denies nausea and Denies vomiting Musculoskeletal: Musculoskeletal: Denies arthralgias Integumentary/Breasts: Skin/Breast: Reports dry skin Exam Narrative: Gen: Al
[2020-12-06] MEDS: ROSUVASTATIN 10 MG TABLET 20 MG PO (21:30)
[2020-12-07] VITALS (11 sets, daily range): BP systolic 141–178; BP diastolic 76–96; PULSE 64–83; RESP 12–27; TEMP 35.9–36.8; O2SAT 95–100
[2020-12-07] MEDS: hydrALAZINE HCL 20 MG/ML VIAL 10 MG IV PUSH (01:29)
[2020-12-07] MEDS: BENZONATATE 100 MG CAPSULE 200 MG PO ×3 (10:10→17:49)
[2020-12-07] MEDS: ASPIRIN 81 MG CHEWABLE TABLET PO (10:10)
[2020-12-07] MEDS: APIXABAN 5 MG TABLET PO ×2 (10:10→20:37)
[2020-12-07] MEDS: PANTOPRAZOLE 40 MG TABLET PO (10:10)
--- NOTE | 2020-12-07 14:36 | PCDIET ---
Nutrition Follow-Up Complete: Inadequate oral intake related to respiratory failure as evidenced by intake records. Patient to meet estimated nutritional needs. Goal: Goal met. Continue goal. Pt current nutrition is Minced & moist level 2 thickness + Ensure compact BID Nutrition recommendation: agree Last recorded weight is 69.8 kg, down from admit wt of 74.6kg. -200ml I/O Bowel Motility: Labs Reviewed:12/07 13.8, Na 136, BUN 60, Glucose 164 Meds Noted:ny Additional Notes: Pt eating well on an appropriate diet. Average intake is 81% of meals. Wt has declined upon admit. Several days of -I/O. Pt offered Ensure Compact BID to help meet additional kcal and protein needs. We will continue to track weight and pO intake every five days.
--- NOTE | 2020-12-07 15:51 | PM.IMPN ---
Progress Note: A&P Assessment and Plan (1) Acute respiratory failure with hypoxia: Code(s): J96.01 - Acute respiratory failure with hypoxia Status: Acute Assessment and Plan: Secondary to COVID PNA Continue O2 supplementation, currently he is on nasal cannula at 2 liters, continue to wean Keep O2 sat > 94% Diagnosed with COVID 11/16 Lasix as needed (2) Pneumonia due to COVID-19 virus: Code(s): U07.1 - COVID-19; J12.82 - Pneumonia due to coronavirus disease 2018 Status: Acute Assessment and Plan: Dexamethasone 10 day completed on 12/06 Remdisivir course completed on 12/01 Rocephin and Azithromycin given concern for bacterial pneumonia, now finished 5-day course Pulmonary consulted added on Baricitinib. Tocilizumab not available CXR 12/03 slight improvement in bilateral infiltrates (3) Atrial fibrillation and flutter: Code(s): I48.91 - Unspecified atrial fibrillation; I48.92 - Unspecified atrial flutter Status: Acute Assessment and Plan: New onset atrial fibrillation Teres[place] related to acute ilness Continue apixaban Lopressor IV as needed; has not required overnight. Echo 11/27 with EF 55-60%, inc LF wall thickness, RV normal, IVC normal (4) Elevated troponin I level: Code(s): R77.8 - Other specified abnormalities of plasma proteins Status: Acute Assessment and Plan: Flat trend EKG no ST changes Likely type 2 [place] Cardiology input appreciated Continue baby aspirin and metoprolol (5) Chronic kidney disease: Code(s): N18.9 - Chronic kidney disease, unspecified Status: Acute Assessment and Plan: Cr now back to baseline 0.9-1.2 (6) Dementia: Code(s): F03.90 - Unspecified dementia without behavioral disturbance Status: Acute Assessment and Plan: Supportive cares Not on meds (7) Generalized weakness: Code(s): R53.1 - Weakness Status: Acute Assessment and Plan: PT and OT to continue to work with him, impoving (8) Fall: Code(s): W19.XXXA - Unspecified fall, initial encounter Status: Acute Assessment and Plan: He had a CT head negative. Fall precautions. Discharge to SNF when medically stable. Subjective Date/time seen: 12/07/20 15:51 S: Patient is examined at the bedside. He is feeling weak but he is in very good spirits. Interval history: Stable overnight. No major issues. Remains on high-flow oxygen by nasal cannula. Hemodynamically stable. Afebrile. He feels his shortness of breath is about the same. Review of Systems Constitutional: Constitutional: Reports fatigue, Reports lethargy and Reports weakness Cardiovascular: Cardiovascular: Denies chest pain, Denies pedal edema and Denies dyspnea Respiratory: Respiratory: Denies cough, Reports dyspnea and Reports dyspnea on exertion Gastrointestinal: Gastrointestinal: Denies abdominal pain, Denies nausea and Denies vomiting Musculoskeletal: Musculoskeletal: Denies arthralgias Integumentary/Breasts: Skin/Breast: Reports dry skin Neurologic: Reports weakness Endocrine: Endocrine: Reports fatigue Exam Narrative: Gen: Alert, NAD, on nasal canula Abd: Soft, NT, ND Heart: Irregularly irregular Lungs: Bibasilar crackles Ext: Trace bilateral lower extremity edema Const: General: cooperative, comfortable, no acute distress, well developed, alert, awake and other (Well-appearing) Nutritional Appearance: thin Orientation/consciousness: patient oriented x3 HENMT: Head: normal to inspection, normocephalic and atraumatic Ears: hearing grossly normal bilaterally Face and sinus: normal facial exam Eyes: General: appearance normal, both eyes and all related structures Pupils: Equal, round and reactive pupils present EOM: EOMs intact bilaterally Neck: Neck: full ROM, no lymphadenopathy and no JVD Thyroid: thyroid normal Lymphatic: no lymphadenopathy noted Resp: Effort & Inspection: normal respirato
[2020-12-07] MEDS: BARICITINIB 2 MG TABLET 4 MG PO (17:49)
[2020-12-07] MEDS: ROSUVASTATIN 10 MG TABLET 20 MG PO (20:36)
[2020-12-08] VITALS (10 sets, daily range): BP systolic 120–192; BP diastolic 78–96; PULSE 68–76; RESP 12–20; TEMP 36.6–36.9; O2SAT 94–97
[2020-12-08] MEDS: amLODIPine BESYLATE 5 MG TABLET PO (09:44)
[2020-12-08] MEDS: APIXABAN 5 MG TABLET PO ×2 (09:44→20:10)
[2020-12-08] MEDS: BENZONATATE 100 MG CAPSULE 200 MG PO ×3 (09:44→16:40)
[2020-12-08] MEDS: PANTOPRAZOLE 40 MG TABLET PO (09:44)
[2020-12-08] MEDS: ASPIRIN 81 MG CHEWABLE TABLET PO (09:44)
[2020-12-08 09:52] LABS: Basophils Percent Auto 0.2 % (0.2-1.2); Eosinophils Absolute Auto 0.2 K/mm3 (0-0.3); Hematocrit 42.8 % (42.0-52.0); Hemoglobin 13.9 g/dL (14.0-18.0); Immature Granulocyte Absolute 0.27 K/mm3 (0.00-0.031); Immature Granulocyte Percent A 1.5 % (0-0.5); Lymphocytes Absolute Auto 1.16 K/mm3 (0.9-3.2); Lymphocytes Percent Auto 6.6 % (18.3-44.2); Mean Corpuscular HGB Conc 32.5 g/dl (32-36); Mean Corpuscular Volume 101.7 fl (80-100); Mean Platelet Volume 10.5 fl (7.4-10.4); Monocytes Absolute Auto 1.3 K/mm3 (0.1-0.6); Monocytes Percent Auto 7.2 % (2.6-8.5); Neutrophils Absolute Auto 14.7 K/mm3 (1.3-6.7); Neutrophils Percent Auto 83.5 % (45.5-73.1); Platelet Count Result 406 k/mm3 (150-375); Red Blood Count 4.21 M/mm3 (4.6-6.20); Red Cell Distribution Width 14.3 % (11.5-14.5); White Blood Count 17.6 K/mm3 (4.5-10.0)
[2020-12-08 10:12] LABS: Anion Gap 5 mmol/L (8-16); Blood Urea Nitrogen 32 mg/dL (9-20); Calcium 8.1 mg/dL (8.4-10.2); Carbon Dioxide 23 mmol/L (22-30); Chloride 104 mmol/L (98-107); Estimated CRCL calculation 70 ml/min; Estimated Glomerular Filt Rate > 60; Glucose 85 mg/dL (65-110); Potassium 4.4 mmol/L (3.4-5.0); Sodium 132 mmol/L (137-145)
--- NOTE | 2020-12-08 15:01 | PM.IMPN ---
Progress Note: A&P Assessment and Plan (1) Acute respiratory failure with hypoxia: Code(s): J96.01 - Acute respiratory failure with hypoxia Status: Acute Assessment and Plan: Secondary to COVID PNA Continue O2 supplementation, currently he is on nasal cannula at 2 liters, continue to wean Keep O2 sat > 94% Diagnosed with COVID 11/16 Lasix as needed (2) Pneumonia due to COVID-19 virus: Code(s): U07.1 - COVID-19; J12.82 - Pneumonia due to coronavirus disease 2018 Status: Acute Assessment and Plan: Dexamethasone 10 day completed on 12/06 Remdisivir course completed on 12/01 Rocephin and Azithromycin given concern for bacterial pneumonia, now finished 5-day course Pulmonary consulted added on Baricitinib. Tocilizumab not available CXR 12/03 slight improvement in bilateral infiltrates (3) Atrial fibrillation and flutter: Code(s): I48.91 - Unspecified atrial fibrillation; I48.92 - Unspecified atrial flutter Status: Acute Assessment and Plan: New onset atrial fibrillation Teresaley related to acute ilness Continue apixaban Lopressor IV as needed; has not required overnight. Echo 11/27 with EF 55-60%, inc LF wall thickness, RV normal, IVC normal (4) Elevated troponin I level: Code(s): R77.8 - Other specified abnormalities of plasma proteins Status: Acute Assessment and Plan: Flat trend EKG no ST changes Likely type 2 ID Cardiology input appreciated Continue baby aspirin and metoprolol (5) Chronic kidney disease: Code(s): N18.9 - Chronic kidney disease, unspecified Status: Acute Assessment and Plan: Cr now back to baseline 0.9-1.2 (6) Dementia: Code(s): F03.90 - Unspecified dementia without behavioral disturbance Status: Acute Assessment and Plan: Supportive cares Not on meds (7) Generalized weakness: Code(s): R53.1 - Weakness Status: Acute Assessment and Plan: PT and OT to continue to work with him, impoving (8) Fall: Code(s): W19.XXXA - Unspecified fall, initial encounter Status: Acute Assessment and Plan: He had a CT head negative. Fall precautions. Discharge to SNF when medically stable. Additional Plan Progress Note: A&P Assessment and Plan (1) Acute respiratory failure with hypoxia: Code(s): J96.01 - Acute respiratory failure with hypoxia Status: Acute Assessment and Plan: Secondary to COVID PNA Improving from high-flow oxygen, and currently he is on nasal cannula at 3 liters, continue to wean as tolerated. Continue baricitinib 4 mg PO daily for 14 days. Keep O2 sat > 94% Diagnosed with COVID 11/16 (2) Pneumonia due to COVID-19 virus: Code(s): U07.1 - COVID-19; J12.82 - Pneumonia due to coronavirus disease 2018 Status: Acute Assessment and Plan: Dexamethasone 10 day completed 12/06 Remdisivir course finished 12/01 Rocephin and Azithromycin given concern for bacterial pneumonia, s/p 5-day course Pulmonary consulted added on Baricitinib. Tocilizumab not available Currently receiving baricitinib 4 mg PO daily 11 days out of 14-day course. CXR 12/03 slight improvement in bilateral infiltrates (3) Atrial fibrillation and flutter: Code(s): I48.91 - Unspecified atrial fibrillation; I48.92 - Unspecified atrial flutter Status: Acute Assessment and Plan: New onset atrial fibrillation Currently on apixaban ; rate controlled with metoprolol intermittent IV pushes. Echo 11/27 with EF 55-60%, inc LF wall thickness, RV normal, IVC normal (4) Elevated troponin I level: Code(s): R77.8 - Other specified abnormalities of plasma proteins Status: Acute Assessment and Plan: Flat trend EKG no ST changes Likely type 2 ID Per cardiology : continue baby aspirin and PRN IV metoprolol (5) Chronic kidney disease: Code(s): N18.9 - Chronic kidney disease, unspecified Status: Acute kidney
[2020-12-08] MEDS: BARICITINIB 2 MG TABLET 4 MG PO (16:40)
[2020-12-08] MEDS: ROSUVASTATIN 10 MG TABLET 20 MG PO (20:10)
[2020-12-09] VITALS (11 sets, daily range): BP systolic 131–156; BP diastolic 63–91; PULSE 67–95; RESP 12–18; TEMP 36.4–37.2; O2SAT 92–97
[2020-12-09] MEDS: APIXABAN 5 MG TABLET PO ×2 (09:07→20:44)
[2020-12-09] MEDS: BENZONATATE 100 MG CAPSULE 200 MG PO ×3 (09:07→17:56)
[2020-12-09] MEDS: amLODIPine BESYLATE 5 MG TABLET PO (09:07)
[2020-12-09] MEDS: PANTOPRAZOLE 40 MG TABLET PO (09:07)
[2020-12-09] MEDS: ASPIRIN 81 MG CHEWABLE TABLET PO (09:07)
--- NOTE | 2020-12-09 11:44 | PM.IMPN ---
Progress Note: A&P Assessment and Plan (1) Acute respiratory failure with hypoxia: Code(s): J96.01 - Acute respiratory failure with hypoxia Status: Acute Assessment and Plan: Secondary to COVID PNA Continue O2 supplementation, currently he is on nasal cannula at 2 liters, continue to wean Keep O2 sat > 94% Diagnosed with COVID 11/16. Repeat chest Xray 12/09/2020 reveals significant improvement of bilateral lung disease. Discharge on home oxygen. (2) Pneumonia due to COVID-19 virus: Code(s): U07.1 - COVID-19; J12.82 - Pneumonia due to coronavirus disease 2018 Status: Acute Assessment and Plan: Dexamethasone 10 day completed on 12/06 Remdisivir course completed on 12/01 Rocephin and Azithromycin given concern for bacterial pneumonia, now finished 5-day course Pulmonary consulted added on Baricitinib. Tocilizumab not available CXR 12/03 slight improvement in bilateral infiltrates (3) Atrial fibrillation and flutter: Code(s): I48.91 - Unspecified atrial fibrillation; I48.92 - Unspecified atrial flutter Status: Acute Assessment and Plan: New onset atrial fibrillation Likley related to acute ilness Continue apixaban Lopressor IV as needed; has not required overnight. Echo 11/27 with EF 55-60%, inc LF wall thickness, RV normal, IVC normal (4) Elevated troponin I level: Code(s): R77.8 - Other specified abnormalities of plasma proteins Status: Acute Assessment and Plan: Flat trend EKG no ST changes Likely type 2 [place] Cardiology input appreciated Continue baby aspirin and metoprolol (5) Chronic kidney disease: Code(s): N18.9 - Chronic kidney disease, unspecified Status: Acute Assessment and Plan: Cr now back to baseline 0.9-1.2 (6) Dementia: Code(s): F03.90 - Unspecified dementia without behavioral disturbance Status: Acute Assessment and Plan: Supportive cares Not on meds (7) Generalized weakness: Code(s): R53.1 - Weakness Status: Acute Assessment and Plan: PT and OT to continue to work with him, impoving (8) Fall: Code(s): W19.XXXA - Unspecified fall, initial encounter Status: Acute Assessment and Plan: He had a CT head negative. Fall precautions. Patient is medically stable for discharge to SNF when home BIPAP and home O2 oxygen are arranged for. Subjective Date/time seen: 12/09/20 11:44 Interval history: Stable overnight. No major issues. Remains on high-flow oxygen 2 liters by nasal cannula. Hemodynamically stable. Afebrile. He feels his shortness of breath is about the same. Review of Systems Review of Systems: All systems reviewed & are unremarkable except as noted in HPI and below ROS unobtainable: Yes unobtainable due to medical condition (Advanced dementia) Constitutional: Constitutional: Reports fatigue, Reports lethargy and Reports weakness Eyes: Eyes: Denies blurry vision and Denies photophobia ENT: Reports system reviewed and no additional complaints, except as documented Cardiovascular: Cardiovascular: Reports no additional cardiovascular complaints, Denies chest pain, Denies pedal edema, Reports dyspnea and Reports dyspnea on exertion Respiratory: Respiratory: Denies chest congestion, Denies cough, Denies hemoptysis, Reports dyspnea, Reports dyspnea on exertion and Denies wheezing Gastrointestinal: Gastrointestinal: Reports no additional gastrointestinal complaints, Denies abdominal pain, Denies nausea and Denies vomiting Genitourinary: Genitourinary: Reports no additional male genitourinary complaints Musculoskeletal: Musculoskeletal: Reports no additional musculoskeletal complaints and Denies arthralgias Integumentary/Breasts: Skin/Breast: Reports system reviewed and no additional complaints, except as docu and Reports dry skin Neurologic: Reports system reviewed and no additional complaints, except as documented and Reports weakness P
[2020-12-09 12:30] LABS: Anion Gap 1 mmol/L (8-16); Blood Urea Nitrogen 25 mg/dL (9-20); Calcium 8.2 mg/dL (8.4-10.2); Carbon Dioxide 25 mmol/L (22-30); Chloride 104 mmol/L (98-107); Estimated CRCL calculation 68 ml/min; Estimated Glomerular Filt Rate > 60; Glucose 87 mg/dL (65-110); Potassium 4.1 mmol/L (3.4-5.0); Sodium 130 mmol/L (137-145)
[2020-12-09] MEDS: BARICITINIB 2 MG TABLET 4 MG PO (17:57)
[2020-12-09] MEDS: ROSUVASTATIN 10 MG TABLET 20 MG PO (20:44)
[2020-12-10] VITALS (10 sets, daily range): BP systolic 103–153; BP diastolic 54–81; PULSE 60–90; RESP 16–20; TEMP 36.3–37.1; O2SAT 90–100
[2020-12-10 07:26] LABS: Basophils Percent Auto 0.2 % (0.2-1.2); Eosinophils Absolute Auto 0.2 K/mm3 (0-0.3); Eosinophils Percent Auto 1.1 % (0-4.4); Hematocrit 42.4 % (42.0-52.0); Hemoglobin 13.9 g/dL (14.0-18.0); Immature Granulocyte Absolute 0.24 K/mm3 (0.00-0.031); Immature Granulocyte Percent A 1.8 % (0-0.5); Lymphocytes Absolute Auto 1.17 K/mm3 (0.9-3.2); Lymphocytes Percent Auto 8.8 % (18.3-44.2); Mean Corpuscular HGB Conc 32.8 g/dl (32-36); Mean Corpuscular Volume 100.7 fl (80-100); Mean Platelet Volume 10.4 fl (7.4-10.4); Monocytes Absolute Auto 1.1 K/mm3 (0.1-0.6); Monocytes Percent Auto 8.4 % (2.6-8.5); Neutrophils Absolute Auto 10.6 K/mm3 (1.3-6.7); Neutrophils Percent Auto 79.7 % (45.5-73.1); Platelet Count Result 382 k/mm3 (150-375); Red Blood Count 4.21 M/mm3 (4.6-6.20); Red Cell Distribution Width 14.1 % (11.5-14.5); White Blood Count 13.3 K/mm3 (4.5-10.0)
[2020-12-10 07:48] LABS: Anion Gap 3 mmol/L (8-16); Blood Urea Nitrogen 26 mg/dL (9-20); Calcium 8.2 mg/dL (8.4-10.2); Carbon Dioxide 28 mmol/L (22-30); Chloride 103 mmol/L (98-107); Estimated CRCL calculation 63 ml/min; Estimated Glomerular Filt Rate > 60; Glucose 84 mg/dL (65-110); Potassium 4.2 mmol/L (3.4-5.0); Sodium 134 mmol/L (137-145)
[2020-12-10] MEDS: amLODIPine BESYLATE 5 MG TABLET PO (08:21)
[2020-12-10] MEDS: BENZONATATE 100 MG CAPSULE 200 MG PO ×3 (08:21→16:46)
[2020-12-10] MEDS: PANTOPRAZOLE 40 MG TABLET PO (08:21)
[2020-12-10] MEDS: APIXABAN 5 MG TABLET PO ×2 (08:21→22:04)
[2020-12-10] MEDS: ASPIRIN 81 MG CHEWABLE TABLET PO (09:47)
--- NOTE | 2020-12-10 11:55 | PM.IMPN ---
Progress Note: A&P Assessment and Plan (1) Acute respiratory failure with hypoxia: Code(s): J96.01 - Acute respiratory failure with hypoxia Status: Acute Assessment and Plan: Secondary to COVID PNA Continue O2 supplementation, currently he is on nasal cannula at 2 liters, continue to wean Keep O2 sat > 94% Diagnosed with COVID 11/16. Repeat chest Xray 12/09/2020 reveals significant improvement of bilateral lung disease. Discharge on home oxygen. 12/10/20 11:55 80-year-old male with acute respiratory failure with hypoxia secondary to COVID-19 diagnosed 11/16 now off isolation, was treated with and completed course of dexamethasone for 10 days and remdesivir, as well as treated for secondary pneumonia azithromycin and Rocephin, patient remains clinically stable still required 2 L of oxygen at rest, had been using BiPAP at night, did not use BiPAP last night, will monitor patient 1 more day, if he is not requiring BiPAP he can be discharged to his current intermediate, if patient is requiring BiPAP then he will need to go to different intermediate, health care consultant is working on it. he remains clinically stable will continue to monitor (2) Pneumonia due to COVID-19 virus: Code(s): U07.1 - COVID-19; J12.82 - Pneumonia due to coronavirus disease 2018 Status: Acute Assessment and Plan: Dexamethasone 10 day completed on 12/06 Remdisivir course completed on 12/01 Rocephin and Azithromycin given concern for bacterial pneumonia, now finished 5-day course Pulmonary consulted added on Baricitinib. Tocilizumab not available CXR 12/03 slight improvement in bilateral infiltrates (3) Atrial fibrillation and flutter: Code(s): I48.91 - Unspecified atrial fibrillation; I48.92 - Unspecified atrial flutter Status: Acute Assessment and Plan: New onset atrial fibrillation Likley related to acute ilness Continue apixaban Lopressor IV as needed; has not required overnight. Echo 11/27 with EF 55-60%, inc LF wall thickness, RV normal, IVC normal (4) Elevated troponin I level: Code(s): R77.8 - Other specified abnormalities of plasma proteins Status: Acute Assessment and Plan: Flat trend EKG no ST changes Likely type 2 [place] Cardiology input appreciated Continue baby aspirin and metoprolol (5) Chronic kidney disease: Code(s): N18.9 - Chronic kidney disease, unspecified Status: Acute Assessment and Plan: Cr now back to baseline 0.9-1.2 (6) Dementia: Code(s): F03.90 - Unspecified dementia without behavioral disturbance Status: Acute Assessment and Plan: Supportive cares Not on meds (7) Generalized weakness: Code(s): R53.1 - Weakness Status: Acute Assessment and Plan: PT and OT to continue to work with him, yeny (8) Fall: Code(s): W19.XXXA - Unspecified fall, initial encounter Status: Acute Assessment and Plan: He had a CT head negative. Fall precautions. Patient is medically stable for discharge to SNF when home BIPAP and home O2 oxygen are arranged for. Additional Plan Progress Note: A&P Assessment and Plan (1) Acute respiratory failure with hypoxia: Code(s): J96.01 - Acute respiratory failure with hypoxia Status: Acute Assessment and Plan: Secondary to COVID PNA Improving from high-flow oxygen, and currently he is on nasal cannula at 3 liters, continue to wean as tolerated. Continue baricitinib 4 mg PO daily for 14 days. Keep O2 sat > 94% Diagnosed with COVID 11/16 (2) Pneumonia due to COVID-19 virus: Code(s): U07.1 - COVID-19; J12.82 - Pneumonia due to coronavirus disease 2018 Status: Acute Assessment and Plan: Dexamethasone 10 day completed 12/06 Remdisivir course finished 12/01 Rocephin and Azithromycin given concern for bacterial pneumonia, s/p 5-day course Pulmonary consulted added on Baricitinib. Tocilizumab not available Currently rece
[2020-12-10] MEDS: BARICITINIB 2 MG TABLET 4 MG PO (16:46)
[2020-12-10] MEDS: ROSUVASTATIN 10 MG TABLET 20 MG PO (22:04)
[2020-12-11] VITALS (10 sets, daily range): BP systolic 101–124; BP diastolic 56–69; PULSE 62–86; RESP 16–18; TEMP 36.4–37.2; O2SAT 92–97
[2020-12-11 06:39] LABS: Anion Gap 2 mmol/L (8-16); Blood Urea Nitrogen 33 mg/dL (9-20); Calcium 8.3 mg/dL (8.4-10.2); Carbon Dioxide 29 mmol/L (22-30); Chloride 103 mmol/L (98-107); Estimated CRCL calculation 50 ml/min; Estimated Glomerular Filt Rate > 60; Glucose 96 mg/dL (65-110); Potassium 4.5 mmol/L (3.4-5.0); Sodium 134 mmol/L (137-145)
[2020-12-11] MEDS: BENZONATATE 100 MG CAPSULE 200 MG PO ×3 (08:19→16:29)
[2020-12-11] MEDS: ASPIRIN 81 MG CHEWABLE TABLET PO (08:20)
[2020-12-11] MEDS: APIXABAN 5 MG TABLET PO ×2 (08:20→21:23)
[2020-12-11] MEDS: amLODIPine BESYLATE 5 MG TABLET PO (08:20)
[2020-12-11] MEDS: PANTOPRAZOLE 40 MG TABLET PO (08:20)
[2020-12-11 08:43] LABS: Basophils Percent Auto 0.1 % (0.2-1.2); Eosinophils Absolute Auto 0.2 K/mm3 (0-0.3); Eosinophils Percent Auto 1.1 % (0-4.4); Hematocrit 41.7 % (42.0-52.0); Hemoglobin 13.7 g/dL (14.0-18.0); Immature Granulocyte Absolute 0.19 K/mm3 (0.00-0.031); Immature Granulocyte Percent A 1.3 % (0-0.5); Lymphocytes Absolute Auto 1.39 K/mm3 (0.9-3.2); Lymphocytes Percent Auto 9.7 % (18.3-44.2); Mean Corpuscular HGB Conc 32.9 g/dl (32-36); Mean Corpuscular Hemoglobin 33.3 pg (26-34); Mean Corpuscular Volume 101.5 fl (80-100); Mean Platelet Volume 10.7 fl (7.4-10.4); Monocytes Absolute Auto 1.3 K/mm3 (0.1-0.6); Monocytes Percent Auto 8.8 % (2.6-8.5); Neutrophils Absolute Auto 11.4 K/mm3 (1.3-6.7); Platelet Count Result 369 k/mm3 (150-375); Red Blood Count 4.11 M/mm3 (4.6-6.20); White Blood Count 14.4 K/mm3 (4.5-10.0)
--- NOTE | 2020-12-11 14:34 | PC.NURSE ---
On 12/11/20, the student, [ Zandra Scales], provided care and completed [facility] documentation on this patient. I have reviewed the student's documentation and agree with the findings.
--- NOTE | 2020-12-11 17:17 | PM.IMPN ---
Progress Note: A&P Assessment and Plan (1) Acute respiratory failure with hypoxia: Code(s): J96.01 - Acute respiratory failure with hypoxia Status: Acute Assessment and Plan: Secondary to COVID PNA Continue O2 supplementation, currently he is on nasal cannula at 3 liters, continue to wean Keep O2 sat > 94% Diagnosed with COVID 11/16. Repeat chest Xray 12/09/2020 reveals significant improvement of bilateral lung disease. (2) Pneumonia due to COVID-19 virus: Code(s): U07.1 - COVID-19; J12.82 - Pneumonia due to coronavirus disease 2018 Status: Acute Assessment and Plan: Dexamethasone 10 day completed on 12/06 Remdisivir course completed on 12/01 Rocephin and Azithromycin given concern for bacterial pneumonia, now finished 5-day course Pulmonary consulted added on Baricitinib. Tocilizumab not available CXR 12/03 slight improvement in bilateral infiltrates (3) Atrial fibrillation and flutter: Code(s): I48.91 - Unspecified atrial fibrillation; I48.92 - Unspecified atrial flutter Status: Acute Assessment and Plan: New onset atrial fibrillation Likley related to acute ilness Continue apixaban BP soft, beta edin as tolerated Echo 11/27 with EF 55-60%, inc LF wall thickness, RV normal, IVC normal (4) Elevated troponin I level: Code(s): R77.8 - Other specified abnormalities of plasma proteins Status: Acute Assessment and Plan: Flat trend EKG no ST changes Likely type 2 [place] Cardiology input appreciated Continue baby aspirin and metoprolol (5) Chronic kidney disease: Code(s): N18.9 - Chronic kidney disease, unspecified Status: Acute Assessment and Plan: Cr now back to baseline 0.9-1.2 (6) Dementia: Code(s): F03.90 - Unspecified dementia without behavioral disturbance Status: Acute Assessment and Plan: Supportive cares Not on meds (7) Generalized weakness: Code(s): R53.1 - Weakness Status: Acute Assessment and Plan: PT and OT to continue to work with him, impoving (8) Fall: Code(s): W19.XXXA - Unspecified fall, initial encounter Status: Acute Assessment and Plan: He had a CT head negative. Fall precautions. Patient is medically stable for discharge to SNF when home BIPAP and home O2 oxygen are arranged for. Additional Plan potential d/c tomorrow discussed going home with patient, but he said he felt like he wasn't ready, and may have to come back if discharged Time Spent With Patient Time with patient: less than 15 minutes Subjective Date/time seen: 12/11/20 17:17 no acute medical complaints resting comfortably in bed still needs supplemental oxygen Review of Systems Review of Systems: All systems reviewed & are unremarkable except as noted in HPI and below Respiratory: Respiratory: Reports dyspnea on exertion Exam Const: General: no acute distress Resp: Other: diffuse crackles on auscultation still require oxygen NC Cardio: Rate: abnormal rate Rhythm: abnormal rhythm GI: GI Palp: Yes Soft to palpation and No Tenderness to palpation present (GI) Objective Data Vital Signs Vital Signs: Vital Signs - 24 hr 12/10/20 20:00 12/10/20 23:28 12/10/20 23:53 Temperature 97.7 F 97.7 F Pulse Rate 64 60 Respiratory Rate 18 17 Blood Pressure 108/54 L 103/54 L Pulse Oximetry 91 95 97 12/11/20 00:00 12/11/20 03:43 12/11/20 04:00 Temperature 98.5 F Pulse Rate 79 73 86 Respiratory Rate 18 Blood Pressure 107/64 Pulse Oximetry 92 12/11/20 08:00 12/11/20 12:00 12/11/20 14:08 Temperature 98.9 F 98.7 F Pulse Rate 77 67 Respiratory Rate 16 16 Blood Pressure 102/56 L 101/61 Pulse Oximetry 93 97 92 12/11/20 16:00 Temperature 97.5 F L Pulse Rate 62 Respiratory Rate 16 Blood Pressure 103/60 Pulse Oximetry 93 Intake/Output Intake/Output: Intake & Output 12/08/20 12/09/20 12/10/20 12/11/20 23:59 23:59 23:59 23:59 I
[2020-12-11] MEDS: ROSUVASTATIN 10 MG TABLET 20 MG PO (21:23)
[2020-12-12] VITALS: BP 121/72; PULSE 75; RESP 18; TEMP 35.5; O2SAT 94
[2020-12-12 04:00] VITALS: BP 134/80; PULSE 74; RESP 18; TEMP 36.7; O2SAT 93
[2020-12-12 06:57] LABS: Hematocrit 40.8 % (42.0-52.0); Hemoglobin 13.3 g/dL (14.0-18.0); Mean Corpuscular HGB Conc 32.6 g/dl (32-36); Mean Corpuscular Hemoglobin 32.4 pg (26-34); Mean Corpuscular Volume 99.5 fl (80-100); Platelet Count Result 339 k/mm3 (150-375); Red Cell Distribution Width 13.6 % (11.5-14.5); White Blood Count 16.2 K/mm3 (4.5-10.0)
[2020-12-12 07:14] LABS: Alanine Aminotransferase 46 U/L (4-50); Albumin Level 2.7 g/dL (3.5-5.1); Alkaline Phosphatase 88 U/L (38-126); Anion Gap 1 mmol/L (8-16); Aspartate Amino Transferase 48 U/L (17-59); Bilirubin,Total 1.1 mg/dL (0.2-1.3); Blood Urea Nitrogen 24 mg/dL (9-20); Calcium 8.1 mg/dL (8.4-10.2); Carbon Dioxide 30 mmol/L (22-30); Chloride 103 mmol/L (98-107); Estimated CRCL calculation 70 ml/min; Estimated Glomerular Filt Rate > 60; Glucose 93 mg/dL (65-110); Magnesium 2.3 mg/dL (1.6-2.3); Phosphorus 2.7 mg/dL (2.5-4.5); Sodium 134 mmol/L (137-145)
[2020-12-12 08:00] VITALS: PULSE 75; O2SAT 90
[2020-12-12 08:47] LABS: Band Neutrophils Percent 1 % (0-6); Lymphocytes Absolute Manual 0.81 K/mm3 (1.1-4.5); Monocytes Absolute Manual 0.64 K/mm3 (0.1-0.90); Monocytes Percent Manual 4 % (3-9); Neutrophils Absolute Manual 14.74 K/mm3 (1.3-6.7); Neutrophils Percent Manual 90 % (46-73); Total Cells Counted 100
[2020-12-12 08:48] LABS: Platelet Estimate Adequate (Adequate)
[2020-12-12] MEDS: amLODIPine BESYLATE 5 MG TABLET PO (08:58)
[2020-12-12] MEDS: PANTOPRAZOLE 40 MG TABLET PO (08:58)
[2020-12-12] MEDS: APIXABAN 5 MG TABLET PO (08:58)
[2020-12-12] MEDS: BENZONATATE 100 MG CAPSULE 200 MG PO ×2 (08:58→12:12)
[2020-12-12] MEDS: ASPIRIN 81 MG CHEWABLE TABLET PO (08:59)
--- NOTE | 2020-12-12 10:58 | PCNFU ---
Nutrition Follow-Up Complete: Inadequate oral intake related to respiratory failure as evidenced by intake records. Goal: Patient to meet estimated nutritional needs. Patient is progressing towards goal. No new goal at this time. Pt current nutrition is Heart healthy with minced and moist level 5 and thickened liquids. Last recorded weight is 79.9 kg. Recommend re-weighing patient prior to discharge. Bowel Motility: No bowel movement documented. Labs Reviewed: Hgb 13.3, Hct 40.8, Alb 2.7, Na 134, BUN 24 Meds Noted: Norvasc, Eliquis, Benzonatate, Metoprolol Tartrate, Protonix, Crestor, Additional Notes: Checked in with patient. Patient has been eating a decent amount on average consuming 77% of meals. He is receiving ensure compact TID providing an additional 220 calories and 9 grams of protein. He is tolerating the food well but states he has a poor appetite. Follow up every 5 days.
--- NOTE | 2020-12-12 11:53 | PM.PNPUL ---
Progress Note: A&P Assessment and Plan (1) Pneumonia due to COVID-19 virus: Code(s): U07.1 - COVID-19; J12.82 - Pneumonia due to coronavirus disease 2019 Status: Acute Assessment and Plan: Patient tested positive for COVID-19 on 11/16; started on remdesivir 11/26, dexamethasone on 11/27; baricitinib 4 mg PO Q day started 11/27, ceftriaxone and azithromycin. He is better. Last CXR was 12/09 and is much improved. This will be his new baseline CXR. Will go to CT on room air at rest, 3 L/min with exertion or higher if he goes below 88%, and 2 L/min with sleep. No AVAPS needed at night. This was used for his acute respiratory failure, now resolved. He does not need follow up with pulmonary. He may contact us as an out patient if new problems arise. (2) Acute respiratory failure with hypoxia: Code(s): J96.01 - Acute respiratory failure with hypoxia Status: Acute Assessment and Plan: Etiology of hypoxic respiratory failure is COVID pneumonia. Echo noted with EF 55-60%mild , AR, MR, and TR without calculated RVSP. 11/26 Initial saturations on 11/26 were 84% on room air at 7:30 a.m.. 11/26 3:00 p.m. patient required 6 L nasal cannula for saturations 94%. 11/26 8:00 p.m. required 15 L nasal cannula for saturations 91%. 11/27 2:00 a.m. patient required BiPAP with a rate of 10, pressure is 18/6 and 80% for saturations 95%. 11/27 11:45 a.m. AVAPS mode with a backup rate of 24, tidal volume 550, EPAP 6, minimal inspiratory pressure 7, maximal inspiratory pressure 25, inspiratory time 1.0 seconds, rise of to and 80%. Saturations were 95%. ABG 7.48/31/68. 11/28 08:15 AVAPS mode with FIO2 60% and sats 94%, attempt Airvo 60L and 100% along with 100% NRB mask later today. 11/28 20:00 Airvo 60L and 75% with overlying 100% NRB with sats 93% 11/29 08:00 On AVAPS mode overnight at 80%. I placed him on Airvo 60 L and 90% FiO2 this morning and his saturations were 93%. 12/12 8:00 Room air saturation 90-94%; needs 3 L/min with exertion. Subjective Date/time seen: 12/12/20 11:53 follow up : 80-year-old man with a history of dementia admitted with COVID pneumonia and acute hypoxemic respiratory failure; he was severely ill, treated with remdesivir and BiPAP, then switched to AVAPS 11/27 when he worsened, baricitinib 4 mg PO Q day. He is improved clinically. He had a blood gas on 11/27 without CO2 retention, and a venous blood gas 12/04 without CO2 retention. He is now improved and on room air at rest, 3 L/min with exertion. He is sitting in a chair, says he feels weak, but thought he was going to earlier in the admission, so he is better. Review of Systems Review of Systems: All systems reviewed & are unremarkable except as noted in HPI and below Exam Narrative: GEN: Alert, oriented, not in distress. Sitting in a chair on room air with saturation 92%. CHEST: Equal air entry, symmetric excursion, decreased breath sounds CV: Regular S1S2 no m/g/r Extremities : no clubbing, cyanosis, edema; no calf tenderness PSYCH: normal thought and speech Objective Data Vital Signs Vital Signs: Vital Signs - 24 hr 12/11/20 12:00 12/11/20 14:08 12/11/20 16:00 Temperature 37.1 C 36.4 C L Pulse Rate 67 62 Respiratory Rate 16 16 Blood Pressure 101/61 103/60 Pulse Oximetry 97 92 93 12/11/20 20:00 12/11/20 20:30 12/11/20 20:57 Temperature 36.7 C Pulse Rate 78 80 76 Respiratory Rate 18 Blood Pressure 124/69 Pulse Oximetry 95 94 12/12/20 00:00 12/12/20 04:00 12/12/20 08:00 Temperature 35.5 C L 36.7 C Pulse Rate 75 74 75 Respiratory Rate 18 18 Blood Pressure 121/72 134/80 Pulse Oximetry 94 93 90 Intake/Output Intake/Output: Intake & Output 12/09/20 12/10/20 12/11/20 12/12/20 23:59 23:59 23:59 23:59 Intake Total 745 1120 1200 50 Output Total 2150 550 1100 350
[2020-12-12 12:00] VITALS: PULSE 91
[2020-12-12 14:00] VITALS: BP 143/80; PULSE 81; RESP 18; TEMP 36.6; O2SAT 97
--- NOTE | 2020-12-12 15:24 | PM.DS ---
DS: Admitting Diagnosis Discharge Date 12/12/20 Admitting Diagnosis Generalized weakness DS: Discharge Diagnosis Discharge Diagnosis (1) Pneumonia due to COVID-19 virus: Code(s): U07.1 - COVID-19; J12.82 - Pneumonia due to coronavirus disease 2018 Status: Acute (2) Atrial fibrillation: Code(s): I48.91 - Unspecified atrial fibrillation Status: Acute DS: Summary Hospital Course Hospital Course: Patient is an 80-year-old male with past medical history of dementia presenting from home with complaining of generalized lethargy for the last few days prior to admission. Noted by the EMS, the patient oxygen saturation was in the 80s. EKG showed atrial fibrillation on presentation, along with troponin elevation pattern consistent with type 2 NSTEMI, and BNP above 2000. Chest x-ray significant for bilateral opacities consistent with COVID, and patient reports that both he and his tested positive for COVID recently. Head CT on admission showing nonspecific white matter disease, likely representing chronic small vessel ischemic disease. Patient was started on remdesivir on day of admission, and steroids the following day. Initially requiring continuous BiPAP, over time FiO2 decreased, and patient transition to Airvo, and eventually nasal cannula. Tocilizumab not available at that time, started instead on baricitinib 4 mg p.o. daily. Empirically treated with azithromycin and ceftriaxone for community-acquired pneumonia, discontinued after continuously negative blood cultures. Patient also suffered from atrial fibrillation with controlled heart rate. Transition from low-molecular weight heparin to Eliquis for anticoagulation. At time of discharge, patient requiring 3 L of oxygen, which we will able to give to him at his facility on discharge. Per pulm service, AVAPS no longer needed at night as his respiratory failure has resolved. Discussed prognosis with patient, he is comfortable going to inpatient rehab today, with appropriate followups. Status at Discharge Overall status at discharge: patient is progressing back to baseline Time Spent with Patient Time attestation: Total time spent providing and/or coordinating discharge services: Time spent: Less than 30 minutes Exam Const: General: no acute distress Neck: Neck: no JVD Resp: Effort & Inspection: normal respiratory effort Auscultation: clear to auscultation bilaterally Other: Breathing with the help of nasal cannula Cardio: Rate: abnormal rate Rhythm: abnormal rhythm DS: Data Data Completed and Pending Labs on day of discharge: Labs from last 24 hours 12/12/20 12/12/20 06:00 06:00 WBC 16.2 H RBC 4.10 L Hgb 13.3 L Hct 40.8 L MCV 99.5 MCH 32.4 MCHC 32.6 RDW 13.6 Plt Count 339 MPV 10.0 Immature Gran % (Auto) Not Reportable Neut % (Auto) Not Reportable Lymph % (Auto) Not Reportable [place] % (Auto) Not Reportable Eos % (Auto) Not Reportable Baso % (Auto) Not Reportable Lymph # (Auto) Not Reportable [place] # (Auto) Not Reportable Eos # (Auto) Not Reportable Baso # (Auto) Not Reportable Abs Immat Gran (auto) Not Reportable Absolute Neuts (auto) Not Reportable Absolute Nucleated RBC Not Reportable Total Counted 100 Neutrophils % (Manual) 90 H Band Neutrophils % 1 Lymphocytes % (Manual) 5.0 L Monocytes % (Manual) 4 Nucleated RBC % Not Reportable Abs Neuts (Manual) 14.74 H Abs Lymphs (Manual) 0.81 L Abs Monocytes (Manual) 0.64 Platelet Estimate Adequate Sodium 134 L Potassium 4.0 Chloride 103 Carbon Dioxide 30 Anion Gap 1 L BUN 24 H Creatinine 0.80 Estim Creat Clear Calc 70 Estimated GFR > 60 Glucose 93 Calcium 8.1 L Phosphorus 2.7 Magnesium 2.3 Total Bilirubin 1.1 AST 48 ALT 46 Alkaline Phosphatase 88 Total Protein 6.0 L Albumin 2.7 L Discharge Plan Discharge Attending physician on discharge: Monique Negron
== END 2020-12-12 16:17 | DRG 177 ==
LOC: ANHED 12:54 → ANHIMU 13:26 → ANH3MEDSUR 12-05 22:15
PROVIDERS: Internal Medicine; Internal Medicine Nephrology; Internal Medicine Pulmonary Disease; Admitting Provider Internal Medicine; Emergency Provider Family Medicine; PCP Internal Medicine; Visit Provider Internal Medicine
DX: U07.1 COVID-19 (principal); J12.82 Pneumonia due to coronavirus disease 2019; J96.01 Acute respiratory failure with hypoxia; I21.A1 Myocardial infarction type 2; I48.91 Unspecified atrial fibrillation; R77.8 Other specified abnormalities of plasma proteins; F03.90 Unspecified dementia, unspecified severity, without behavioral disturbance, psychotic disturbance, mood disturbance, and anxiety; N18.9 Chronic kidney disease, unspecified; R53.1 Weakness; W18.11XA Fall from or off toilet without subsequent striking against object, initial encounter; Z79.899 Other long term (current) drug therapy
CPT/HCPCS: 36415; 36600; 70450; 71045; 71046; 80048; 80053; 81001; 82375; 82565; 82728; 82803; 82805; 82948; 83050; 83735; 83880; 84100; 84460; 84484; 85025; 85380; 85610; 86140; 87040; 92610; 93005; 93306; 94002; 94003; 94640; 94660; 97110; 97116; 97161; 97165; 97530; 97535; 99285; A9270; J0360; J0456; J0696; J1100; J1650; J1940; J7030

== ENCOUNTER 2024-04-19 11:58 | Emergency (ER) | payer OTHER, MEDICARE, SELFPAY ==
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
[2024-04-19 12:08] VITALS: BP 152/74; PULSE 73; RESP 20; TEMP 36.6; O2SAT 100
[2024-04-19 14:10] VITALS: BP 188/100; PULSE 72; RESP 16; O2SAT 100
[2024-04-19 14:36] LABS: Basophils Absolute Auto 0.1 K/mm3 (0.0-0.1); Basophils Percent Auto 0.5 % (0.2-1.2); Eosinophils Absolute Auto 0.2 K/mm3 (0-0.3); Eosinophils Percent Auto 1.3 % (0-4.4); Hematocrit 43.1 % (42.0-52.0); Immature Granulocyte Absolute 0.13 K/mm3 (0.00-0.031); Immature Granulocyte Percent A 1.1 % (0-0.5); Lymphocytes Absolute Auto 0.91 K/mm3 (0.9-3.2); Lymphocytes Percent Auto 7.4 % (18.3-44.2); Mean Corpuscular HGB Conc 32.5 g/dl (32-36); Mean Corpuscular Hemoglobin 33.9 pg (26-34); Mean Corpuscular Volume 104.4 fl (80-100); Mean Platelet Volume 9.8 fl (7.4-10.4); Monocytes Absolute Auto 0.9 K/mm3 (0.1-0.6); Neutrophils Absolute Auto 10.1 K/mm3 (1.3-6.7); Neutrophils Percent Auto 82.7 % (45.5-73.1); Platelet Count Result 238 k/mm3 (150-375); Red Blood Count 4.13 M/mm3 (4.6-6.20); Red Cell Distribution Width 13.2 % (11.5-14.5); White Blood Count 12.2 K/mm3 (4.5-10.0)
[2024-04-19 14:51] LABS: Alanine Aminotransferase 19 U/L (6-50); Alkaline Phosphatase 81 U/L (38-126); Anion Gap 4 mmol/L (4-12); Aspartate Amino Transferase 26 U/L (17-59); Bilirubin,Total 0.7 mg/dL (0.2-1.3); Blood Urea Nitrogen 31 mg/dL (9-20); Calcium 8.9 mg/dL (8.4-10.2); Carbon Dioxide 30 mmol/L (22-30); Chloride 104 mmol/L (98-107); Estimated CRCL calculation 47 ml/min; Estimated Glomerular Filt Rate 60; Glucose 119 mg/dL (65-110); Potassium 4.7 mmol/L (3.4-5.0); Sodium 138 mmol/L (137-145)
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
[2024-04-19 15:02] LABS: INR 1.2; Prothrombin Time 15.5 Seconds (11.1-14.7)
[2024-04-19 15:03] LABS: Partial Thromboplastin Time 31.7 Seconds (22.3-36.8)
[2024-04-19 15:15] VITALS: BP 163/133; PULSE 75; RESP 16; O2SAT 99
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
--- NOTE | 2024-04-19 16:25 | ECG_ITS ---
Test Date: 2024-04-19 16:32:43 Measurements Intervals [place] Rate: 82 P: 36 MA: 177 QRS: 9 QRSD: 88 T: 14 QT: 376 QTc: 440 Interpretive Statements SINUS RHYTHM No previous ECG available for comparison Electronically Signed On 04-20-2024 14:15:59 [employer] by Gagan Loera M.D.
--- NOTE | 2024-04-19 16:30 | PC.NURSE ---
Pt. consistently hypertensive. Per , no cardiac history. Pt. c/o my chest is sore. Pt. is A&Ox1 at baseline d/t dementia and is unable to answer further questions about discomfort. RAJENDRA Perez notified. Lab called to add on ordered troponin.
[2024-04-19 16:36] VITALS: BP 206/125; PULSE 64; RESP 16; O2SAT 98
[2024-04-19 16:49] LABS: Troponin I < 0.012 ng/mL (0.000-0.034)
[2024-04-19] MEDS: LORazepam INJ (*CRX) 2 MG/ML VIAL 0.5 MG IV PUSH (17:21)
[2024-04-19 17:30] VITALS: BP 176/105; PULSE 70; RESP 16; O2SAT 98
[2024-04-19 18:00] VITALS: BP 178/82; PULSE 69; RESP 16; O2SAT 99
== END 2024-04-19 18:54 | disposition home or self-care (01) ==
PROVIDERS: Emergency Provider Physician Assistant; PCP Internal Medicine
DX: S12.600A Unspecified displaced fracture of seventh cervical vertebra, initial encounter for closed fracture (principal); K59.00 Constipation, unspecified; F03.90 Unspecified dementia, unspecified severity, without behavioral disturbance, psychotic disturbance, mood disturbance, and anxiety; V43.62XA Car passenger injured in collision with other type car in traffic accident, initial encounter
CPT/HCPCS: 36415; 70450; 71260; 72125; 72129; 72132; 74177; 80053; 84484; 85025; 85610; 85730; 93005; 96374; 99284; J2060; Q9967

== ENCOUNTER 2024-07-26 08:38 | Inpatient (IN) | payer MEDICARE, SELFPAY ==
[2024-07-26] VITALS (9 sets, daily range): BP systolic 152–210; BP diastolic 78–108; PULSE 69–87; RESP 12–21; TEMP 36.4–36.7; O2SAT 98–100; BMI 22.5
--- NOTE | ~2024-07-26 | XR_ITS ---
SINGLE AP VIEW PELVIS Ordering provider: Lita Perez PA-C History: . fall . Comparison: None. FINDINGS: BONES: Lucency is seen at the junction of the acetabulum with the right superior pubic ramus. Possibi lity of fracture cannot be excluded. CT is advised. 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 SACROILIAC JOINT SPACES/LUMBAR SPINE: The sacroiliac joint spaces shows bilateral sacroiliitis with f usion on the left side. Mild degenerative changes of the visualized lower lumbar spine. PUBIC SYMPHYSIS: Normal. SOFT TISSUES: Normal. IMPRESSION: Lucency at the junction of the right acetabulum with the superior pubic ramus. Possibility of fractur e cannot be excluded. CT is advised. Reviewed, dictated and finalized at location A. IMPRESSION: Lucency at the junction of the right acetabulum with the superior pubic ramus. Possibility of fracture cannot be excluded. CT is advised.
--- NOTE | ~2024-07-26 | XR_ITS ---
EXAMINATION: XR chest 1V portable DATE: 08/05/2024 08:08 INDICATION: Leukocytosis TECHNIQUE: frontal view of the chest was obtained. COMPARISON: Chest radiograph dated 07/26/2024 FINDINGS: No interval change in patchy opacities in the bilateral lower lung zones corresponding to bilateral c alcified pleural plaques and suggesting prior exposure since exposure. No definitively new airspace o pacities, pulmonary edema, pleural effusion or pneumothorax. Heart size is normal. IMPRESSION: 1. Stable appearance of calcified pleural plaques in the bilateral lower lung zones consistent with p rior asbestos exposure. No definitive acute cardiopulmonary disease. Reviewed, dictated and finalized at location A. IMPRESSION: 1. Stable appearance of calcified pleural plaques in the bilateral lower lung z ones consistent with prior asbestos exposure. No definitive acute cardiopulmona ry disease.
--- NOTE | ~2024-07-26 | XR_ITS ---
XR chest 2V 07/26/2024 09:35 Indication: Weakness Procedure: 2 view chest Comparison: Comparison to multiple prior studies sequentially, with oldest reviewed study dated 11/27. Findings: There is extensive course pleural plaque calcifications, consistent with prior asbestos exp osure. There is right basilar airspace disease which is new compared with 12/09/2020, suspicious for acute pneumonia. Impression: 1: Possible acute focal pneumonia right lung base versus chronic scarring. 2: Coarse chronic bilateral pleural calcifications, consistent with prior asbestos exposure. Reviewed, dictated and finalized at location A. Impression: 1: Possible acute focal pneumonia right lung base versus chronic scarring. 2: Coarse chronic bilateral pleural calcifications, consistent with prior asbes tos exposure.
--- NOTE | ~2024-07-26 | US_ITS ---
EXAMINATION: US carotid duplex BI DATE: 07/28/2024 14:01 INDICATION: Falls with vertigo and dizziness. Speech and language deficit. TECHNIQUE: Grayscale, color Doppler, and pulsed Doppler images of the cervical carotid arteries were obtained. The degree of vessel stenosis is placed in one of the following categories: normal, <50%, 5 0-69%, >=70% but less than near-occlusion, near-occlusion, or total occlusion. Note that percent sten osis relative to normal distal artery lumen diameter is indirectly measured from velocity measurement s as described by Brodie, et al. Radiology 2003; 229:340-346. COMPARISON: None. FINDINGS: RIGHT: The right common carotid artery (CCA) peak systolic velocity (PSV) is 81 cm/s. The right internal car otid artery (ICA) PSV is 71 cm/s. The right ICA end-diastolic velocity (EDV) is 15 cm/s. The right IC A/CCA PSV ratio is 1.2. Grayscale and color Doppler images yield an estimate of <50%1 diameter reduct ion from plaque in the ICA. The external carotid artery (ECA) PSV is 161 cm/s. There is antegrade isaac w in the right vertebral artery. LEFT: The left CCA PSV is 87 cm/s. The left ICA PSV is 83 cm/s. The left ICA EDV is 21 cm/s. The left ICA/C CA PSV ratio is 1.0. Grayscale and color Doppler images yield an estimate of <50% diameter reduction from plaque in the ICA. The ECA PSV is 92 cm/s. There is antegrade flow in the left vertebral artery. IMPRESSION: 1. <50% stenosis in the right internal carotid artery. 2. <50% stenosis in the left internal carotid artery. Reviewed, dictated and finalized at location A.
--- NOTE | ~2024-07-26 | CT_ITS ---
CT cervical spine wo con Ordering provider: Lita Perez PA-C History: . fall . Comparison: None. Technique: CT of the cervical spine was performed without contrast. Sagittal and coronal reformatted images were also obtained and reviewed. Automated exposure control and iterative reconstruction haley hnique were employed. The dose-length product was 211.22 mGy-cm. FINDINGS: VERTEBRAE: No subluxation or acute fracture. The occipital condyles are intact. DISC SPACES: Narrowing of the disc C5-C6 and C6-C7. Multilevel facet joint disease. Multilevel uncove rtebral joint osteoarthritic changes. Multilevel intervertebral foraminal narrowing. PARASPINOUS SOFT TISSUES: Normal. Effusion is seen in both mastoid air cells and in the middle ears more on the right side. IMPRESSION: No acute osseous abnormality cervical spine. Reviewed, dictated and finalized at location A.
--- NOTE | ~2024-07-26 | CT_ITS ---
EXAMINATION: CT pelvis wo con DATE: 07/26/2024 10:28 INDICATION: Fall with possible pelvic fracture TECHNIQUE: High resolution computed tomography (CT) of the pelvis was performed without intravenous c ontrast. Additional sagittal and coronal reconstructions were performed. Automated exposure control a nd iterative reconstruction technique were employed. The dose-length product was 368.01 mGy-cm. COMPARISON: Pelvis radiographs dated 07/26/2024 FINDINGS: Mild levocurvature in the visualized lower lumbar spine with fusion across the severely narrowed side of the L4-L5 disc space. Alignment is otherwise normal. No fracture. There is additional ankylosis a cross portions of the bilateral sacral back joints. Mild bilateral hip osteoarthritis. There is sever e fatty atrophy of the bilateral gluteus minimus muscle bellies suggesting possible chronic tears of the distal tendons. No hip joint effusions or free fluid in the pelvis. The bladder and visualized po rtions of bowels are unremarkable. Suggestion of prior left inguinal hernia repair. IMPRESSION: 1. Degenerative skeletal changes in the lower lumbar spine and pelvis as detailed above. No acute oss eous abnormality. Reviewed, dictated and finalized at location A. IMPRESSION: 1. Degenerative skeletal changes in the lower lumbar spine and pelvis as detail ed above. No acute osseous abnormality.
--- NOTE | ~2024-07-26 | CT_ITS ---
CT brain wo con Ordering provider: Lita Perez PA-C History: 83 years Male with . fall . Comparison: None. Technique: CT of the head without contrast. Radiation reduction technique utilized. The dose-length p roduct was 681 mGy-cm. FINDINGS: BRAIN PARENCHYMA AND CSF SPACES: Mild leukoaraiosis and diffuse cortical atrophy. Mild atheromatous d isease. No midline shift, mass effect or hemorrhage. The brain parenchyma and CSF spaces are otherwise norm al. VISUALIZED PARANASAL SINUSES: Right maxillary sinus disease. Otherwise, Well aerated. MASTOIDS: Effusion in both mastoid air cells. BONES: The bones appear intact. SOFT TISSUES: Visualized nasopharynx is normal. Superficial soft tissues are normal. IMPRESSION: No acute intracranial findings. Reviewed, dictated and finalized at location A.
--- NOTE | 2024-07-26 09:04 | ECG_ITS ---
Test Date: 2024-07-26 08:49:13 Measurements Intervals [place] Rate: 69 P: 15 NE: 197 QRS: -4 QRSD: 101 T: -19 QT: 420 QTc: 452 Interpretive Statements SINUS RHYTHM INCOMPLETE RIGHT BUNDLE BRANCH BLOCK DELAYED PRECORDIAL R/S TRANSITION NONSPECIFIC ST & T-WAVE ABNORMALITY- INF/LAT LEADS BASELINE ARTIFACT- I, II, III, AVR, AVL, AVF, V1-V6 BORDERLINE ECG Compared to ECG 04/19/2024 16:32:43 NO SIGNIFICANT CHANGE Electronically Signed On 07-26-2024 09:55:58 CDT by Hector Grijalva D.O.
--- NOTE | 2024-07-26 09:08 | PC.NURSE ---
Elena care given, pt repositioned for comfort. Pt rigid stiff with obsessional slight tremor.
--- NOTE | 2024-07-26 09:18 | ED_ITS ---
HPI - Weakness General Chief complaint: Weakness Stated complaint: weak, mult. falls x days Time Seen by Provider: 07/26/24 09:03 Source: patient, family and EMS Mode of arrival: EMS Limitations: dementia History of Present Illness HPI Narrative: This is a 83 year old male that presents to the ER for generalized weakness. Family report multiple falls this last week and need for lift assists. Patient reports a mild headache. Otherwise has no complaints. Related Data Home Medications ?Medication ?Instructions ?Recorded ?Confirmed ?Last Taken ?Type omeprazole 20 mg capsule,delayed 20 mg PO HS 11/26/20 07/26/24 Unknown History release rosuvastatin 20 mg tablet 20 mg PO HS 11/26/20 07/26/24 Unknown History tamsulosin 0.4 mg capsule 0.4 mg PO HS 09/09/22 07/26/24 Unknown History multivitamin (Daily Multi-Vitamin 1 tablet PO DAILY 07/26/24 07/26/24 Unknown History tablet) Allergies Allergy/AdvReac Type Severity Reaction Status Date / Time adhesive tape Allergy Itching Verified 07/26/24 14:13 Review of Systems 2 Review of Systems: ROS unobtainable: Yes unobtainable due to medical condition PMFSH Past Medical History Medical History (Updated 07/26/24 @ 15:03 by Lita Perez PA-C) Atrial fibrillation Impacted cerumen of both ears Dementia Family History Family History (Updated 07/26/24 @ 14:00 by Tammy Shell RN) Father Hypertension Sibling COPD (chronic obstructive pulmonary disease) Cancer Cerebrovascular accident Heart attack COVID Social History Social History Social History: Caffeine-coffee/soda Smoking status: Former smoker Tobacco type: cigarettes Alcohol intake: never Substance use: never Lack of Transportation: No Lack of Food: Never True Current Housing: I Have Housing Concerned About Future Housing: No Difficulty Paying Gas/Electric Bills: No Difficulty Paying for Meds: No Currently Unemployed: No Education: Trade/Vocational Certificate Difficulty w/ Childcare or Family Care: No Living arrangements: with family Occupation/Education: retired Gender identity (if verbalized by the patient): Male Spiritual care concerns: No Exam 2 Narrative: GENERAL: Elderly, well-nourished, and in no acute distress. HEAD: Normocephalic, atraumatic. EYES: PERRLA and EOMI. ENT: Nares clear, no rhinorrhea or epistaxis. Mucous membranes moist. Oropharynx without tonsillar hypertrophy exudate or other lesions. Bilateral TMs pearly lehman non-bulging NECK: Supple. No adenopathy or masses. CHEST: Clear to auscultation. No respiratory distress. No wheezes rales or rhonchi HEART: Regular rate and rhythm. No murmur heard. Normal peripheral pulses. ABDOMEN: Soft, nontender, nondistended, normal active bowel sounds. EXTREMITIES: Normal range of motion. No edema. SKIN: Warm, dry, no rash. NEURO: No focal deficits. Alert and oriented x1-2. PSYCH: Normal mood and affect Course Course Emergency Course: patient and family updated on his workup and need for admission Consultations Consultation #1: spoke with hospitalist about patient and workup who accepts admission Date: 07/26/24 Vital Signs Vital signs: Vital Signs Temperature 97.7 F 07/26/24 08:39 Pulse Rate 73 07/26/24 08:39 Respiratory Rate 16 07/26/24 08:39 Blood Pressure 180/93 H 07/26/24 08:39 Pulse Oximetry 100 07/26/24 08:39 Oxygen Delivery Room Air 07/26/24 08:39 Temperature 98.0 F 07/26/24 12:39 Pulse Rate 87 07/26/24 12:39 Respiratory Rate 18 07/26/24 12:39 Blood Pressure 180/80 H 07/26/24 12:39 Pulse Oximetry 100 07/26/24 12:39 Oxygen Delivery Room Air 07/26/24 08:39 MDM - Weakness MDM Narrative Medical decision making narrative: Patient presents emergency department for generalized weakness, several falls. He is afebrile and nontoxic appearing. His vitals are stable. Cbc without leukocytosis. Metabolic panel with evidence of acute kidney injury. Patient hydrated with IV fluids. Urine without evidence of infection. Chest x-ray shows possible pneumonia. Blood cultures obtained, patient started on IV antibiotics. Pelvic x-ray shows a possible fracture. Pelvic CT obtained. No acute osseous abnormalities. CT brain and cervical spine without acute findings. patient and family updated on his workup and need for admission. spoke with hospitalist about patient and workup who accepts admission Differential Diagnosis Differential diagnosis: Likely anemia, dehydration and other (subdural hematoma, acute kidney injury, pneumonia, UTI) Lab Data Attestation: I reviewed the patient's lab results. 07/26/24 09:10 07/26/24 09:10 Labs: Lab Results 07/26/24 Range/Units 09:10 WBC 8.4 (4.5-10.0) K/mm3 RBC 4.21 L (4.6-6.20) M/mm3 Hgb 13.8 L (14.0-18.0) g/dL Hct 43.0 (42.0-52.0) % MCV 102.1 H (80-100) fl MCH 32.8 (26-34) pg MCHC 32.1 (32-36) g/dl RDW 13.2 (11.5-14.5) % Plt Count 204 (150-375) k/mm3 MPV 10.8 H (7.4-10.4) fl Immature Gran % (Auto) 0.2 (0-0.5) % Neut % (Auto) 65.9 (45.5-73.1) % Lymph % (Auto) 16.9 L (18.3-44.2) % Scott % (Auto) 10.0 H (2.6-8.5) % Eos % (Auto) 6.4 H (0-4.4) % Baso % (Auto) 0.6 (0.2-1.2) % Lymph # (Auto) 1.43 (0.9-3.2) K/mm3 Scott # (Auto) 0.8 H (0.1-0.6) K/mm3 Eos # (Auto) 0.5 H (0-0.3) K/mm3 Baso # (Auto) 0.1 (0.0-0.1) K/mm3 Abs Immat Gran (auto) 0.02 (0.00-0.031) K/mm3 Absolute Neuts (auto) 5.6 (1.3-6.7) K/mm3 Absolute Nucleated RBC 0.000 (0.0-0.012) K/mm3 Nucleated RBC % 0.0 (0.0-0.2) % Sodium 142 (137-145) mmol/L Potassium 4.0 (3.4-5.0) mmol/L Chloride 104 (98-107) mmol/L Carbon Dioxide 26 (22-30) mmol/L Anion Gap 12 (4-12) mmol/L BUN 39 H (9-20) mg/dL Creatinine 1.48 H (0.7-1.3) mg/dL Estim Creat Clear Calc 35 ml/min Estimated GFR 45 L (59 - ) Glucose 98 (65-110) mg/dL Calcium 9.0 (8.4-10.2) mg/dL Total Bilirubin 1.1 (0.2-1.3) mg/dL AST 24 (17-59) U/L ALT 19 (6-50) U/L Alkaline Phosphatase 107 (38-126) U/L Total Protein 7.0 (6.3-8.2) g/dL Albumin 4.2 (3.5-5.1) g/dL Urine Color Yellow (Yellow) Urine Appearance Clear (Clear) Urine pH 7.0 (5.0-9.0) Ur Specific [place] 1.019 (1.001-1.035) Urine Protein 1+ H (Negative) mg/dL Urine Glucose (UA) Negative (Negative) mg/dL Urine Ketones Trace H (Negative) mg/dL Ur Blood (Man) Negative (Negative) Urine Nitrate Negative (Negative) Urine Bilirubin Negative (Negative) Urine Urobilinogen 1.0 (<2.0) mg/dL Add Ur Microanalysis Reviewed Leukocyte Esterase Rfl Negative (Negative) VON/UL Urine RBC 0-2 (0-2) /hpf Urine WBC 0-5 (0-3) /hpf Ur Squamous Epith Cells None seen (Few) /hpf Urine Bacteria None seen /hpf Urine Casts 6-10 Hyaline Casts Present (None) /lpf Imaging Data Radiologist's impression: ITS Impressions Head CT 07/26/24 09:31 IMPRESSION: No acute intracranial findings. Cervical Spine CT 07/26/24 09:36 IMPRESSION: No acute osseous abnormality cervical spine. Chest X-Ray 07/26/24 09:36 Impression: 1: Possible acute focal pneumonia right lung base versus chronic scarring. 2: Coarse chronic bilateral pleural calcifications, consistent with prior asbestos exposure. Pelvis X-Ray 07/26/24 09:43 IMPRESSION: Lucency at the junction of the right acetabulum with the superior pubic ramus. Possibility of fracture cannot be excluded. CT is advised. Pelvis CT 07/26/24 10:38 IMPRESSION: 1. Degenerative skeletal changes in the lower lumbar spine and pelvis as detailed above. No acute osseous abnormality. Critical Care Time Critical Care Time Critical Care Time: Yes Total Critical Care Time: 35 Discharge Plan Discharge Clinical Impression: Acute kidney injury Pneumonia Qualifiers: Pneumonia type: due to unspecified organism Laterality: right Lung location: l ower lobe of lung Qualified Code(s): J18.9 - Pneumonia, unspecified organism Patient Disposition: Still a Patient Condition: Stable
[2024-07-26 09:21] LABS: Basophils Absolute Auto 0.1 K/mm3 (0.0-0.1); Basophils Percent Auto 0.6 % (0.2-1.2); Eosinophils Absolute Auto 0.5 K/mm3 (0-0.3); Eosinophils Percent Auto 6.4 % (0-4.4); Hemoglobin 13.8 g/dL (14.0-18.0); Immature Granulocyte Absolute 0.02 K/mm3 (0.00-0.031); Immature Granulocyte Percent A 0.2 % (0-0.5); Lymphocytes Absolute Auto 1.43 K/mm3 (0.9-3.2); Lymphocytes Percent Auto 16.9 % (18.3-44.2); Mean Corpuscular HGB Conc 32.1 g/dl (32-36); Mean Corpuscular Hemoglobin 32.8 pg (26-34); Mean Corpuscular Volume 102.1 fl (80-100); Mean Platelet Volume 10.8 fl (7.4-10.4); Monocytes Absolute Auto 0.8 K/mm3 (0.1-0.6); Neutrophils Absolute Auto 5.6 K/mm3 (1.3-6.7); Neutrophils Percent Auto 65.9 % (45.5-73.1); Platelet Count Result 204 k/mm3 (150-375); Red Blood Count 4.21 M/mm3 (4.6-6.20); Red Cell Distribution Width 13.2 % (11.5-14.5); White Blood Count 8.4 K/mm3 (4.5-10.0)
[2024-07-26 09:29] LABS: Add Urine Microscopic? YES; Appearance Urine Clear (Clear); Bacteria Urine None Seen /hpf; Bilirubin Urine Negative (Negative); Blood Urine Negative (Negative); Color Urine Yellow (Yellow); Glucose Urine UA Negative (Negative); Hyaline Casts Urine Present /lpf; Ketones Urine Trace mg/dL (Negative); Leukocyte Esterase Ur Negative LEU/UL (Negative); Need Manual Microscopic Reviewed; Nitrate Urine Negative (Negative); Protein Urine 1+ mg/dL (Negative); RBC Urine 0-2 /hpf (0-2); Specific Grav Ur 1.019 (1.001-1.035); Squamous Epithelial Cell Urine None Seen /hpf (Few); WBC Urine 0-5 /hpf (0-3)
[2024-07-26 09:31] LABS: Alanine Aminotransferase 19 U/L (6-50); Albumin Level 4.2 g/dL (3.5-5.1); Alkaline Phosphatase 107 U/L (38-126); Anion Gap 12 mmol/L (4-12); Aspartate Amino Transferase 24 U/L (17-59); Bilirubin,Total 1.1 mg/dL (0.2-1.3); Blood Urea Nitrogen 39 mg/dL (9-20); Carbon Dioxide 26 mmol/L (22-30); Chloride 104 mmol/L (98-107); Estimated CRCL calculation 35 ml/min; Estimated Glomerular Filt Rate 45; Glucose 98 mg/dL (65-110); Sodium 142 mmol/L (137-145)
--- OUTSIDE RECORDS SUMMARY | 2024-07-26 10:02 | XMS_ITS | CONTINUITY OF CARE DOCUMENT ---
Author Name abby mora Address Unknown Organization [facility] Address [address] [place] [address] Phone [phone] Care Team Providers Care Civil Engineer Land Development Name Role Phone Jacky HOLLAND, Daina Unavailable KAMILLE HOLLAND, GURMEET Hannah Unavailable INSURANCE PROVIDERS Payer name Policy type / Coverage type [place] [employer] party ID U[employer] MEDICARE COMPLETE HMO Other [id number]
--- OUTSIDE RECORDS SUMMARY | 2024-07-26 10:02 | XMS_ITS | Data Portability ---
Author Organization [place] [facility] [place] [employer] [facility], Main Office Address [address] [place] [address] Care Team Providers Care Cyber Security Specialist Name Role Phone YOON EVON Primary Care Provider [phone] EVON YOON Referring Provider Assessment Encounter Date Assessment Date Assessment LastModified by Organization Details LastModified Time 05/11/2023 05/11/2023 This note is dictated and transcribed by [employer]. Mosaic Technician variances may occur. Despite proofreading, typographical errors may occur. Occasional wrong-word or 'ejmzb-t-mtet' substitutions may have occurred due to the inherent limitations of voice recording. Read the chart carefully and recognize, using context, where substitutions have occurred. Not available 05/11/2023 13:08:25 08/10/2023 08/10/2023 This note is dictated and transcribed by [employer]. Mosaic Technician variances may occur. Despite proofreading, typographical errors may occur. Occasional wrong-word or 'lhzpi-o-djla' substitutions may have occurred due to the inherent limitations of voice recording. Read the chart carefully and recognize, using context, where substitutions have occurred. Not available 08/10/2023 14:33:02 11/12/2023 11/12/2023 This note is dictated and transcribed by [employer]. Mosaic Technician variances may occur. Despite proofreading, typographical errors may occur. Occasional wrong-word or 'ryqwj-x-qfyf' substitutions may have occurred due to the inherent limitations of voice recording. Read the chart carefully and recognize, using context, where substitutions have occurred. Not available 11/12/2023 15:03:48 03/21/2024 03/21/2024 This note is dictated and transcribed by [employer]. Mosaic Technician variances may occur. Despite proofreading, typographical errors may occur. Occasional wrong-word or 'jyavm-j-qrjk' substitutions may have occurred due to the inherent limitations of voice recording. Read the chart carefully and recognize, using context, where substitutions have occurred. Not available 03/21/2024 11:55:22 06/16/2024 06/16/2024 This note is dictated and transcribed by [employer]. Mosaic Technician variances may occur. Despite proofreading, typographical errors may occur. Occasional wrong-word or 'ppbcq-s-ujdz' substitutions may have occurred due to the inherent limitations of voice recording. Read the chart carefully and recognize, using context, where substitutions have occurred. Not available 06/16/2024 13:22:59 Plan of Treatment Reminders Order Date Submit Date Provider Last Modified By Organization Details Last Modified Time Details Appointments None record ed. Lab None record ed. Referral None record ed. Procedures None record ed. Surgeries None record ed. Imaging None record ed. Medication Orders None record ed. Patient TargetsNo targets recorded. Patient InstructionsNo instructions recorded. Reason for Referral None Reported. Results Created Date Observation Date Name Description Value Unit Range Abnormal Flag Note LastModifiedBy Organization Detail LastModifiedTime 07/27/19 24 07/27/2023 CBC/C OMPLE TE BLD COUNT W/DIF F white blood cells 10.3 x10'3 /uL 4.2-10 .8 Not Available [facility] (Lab) [address] [place], [address], 07/27/2023 13:42:11 07/27/19 24 07/27/2023 CBC/C OMPLE TE BLD COUNT W/DIF F red blood cells 4.40 x10'6 /uL 4.10-5 .80 Not Available [facility] (Lab) [address] [place], [address], 07/27/2023 13:42:11 07/27/19 24 07/27/2023 CBC/C OMPLE TE BLD COUNT W/DIF F hemoglobin 14.8 g/dL 13.2-1 7.0 Not Available [facility] (Lab) [address] [place], [address], 07/27/2023 13:42:11 07/27/19 24 07/27/2023 CBC/C OMPLE TE BLD COUNT W/DIF F hematocrit 44.8 % 39.3-5 0.0 Not Available [facility] (Lab) [address] [place], [address], 07/27/2023 13:42:11 07/27/19 24 07/27/2023 CBC/C OMPLE TE BLD COUNT W/DIF F mean red cell volume 101.8 fL 80.0-9 7.0 high Not Available [facility] (Lab) [address] [place], [address], 07/27/2023 13:42:11 07/27/19 24 07/27/2023 CBC/C OMPLE TE BLD COUNT W/DIF F mean red cell hemoglobin 33.6 pg 27.0-3 3.0 high Not Available [facility] (Lab) [address] [place], [address], 07/27/2023 13:42:11 07/27/19 24 07/27/2023 CBC/C OMPLE TE BLD COUNT W/DIF F mean RBC HGB concentratio n 33.0 g/dL 31.0-3 6.0 Not Available [facility] (Lab) [address] [place], [address], 07/27/2023 13:42:11 07/27/19 24 07/27/2023 CBC/C OMPLE TE BLD COUNT W/DIF F red cell distribution width 13.7 % 11.8-1 5.5 Not Available [facility] (Lab) [address] [place], [address], 07/27/2023 13:42:11 07/27/19 24 07/27/2023 CBC/C OMPLE TE BLD COUNT W/DIF F platelets 276 x10'3 /uL 150-40 0 Not Available [facility] (Lab) [address] [place], [address], 07/27/2023 13:42:11 07/27/19 24 07/27/2023 CBC/C OMPLE TE BLD COUNT W/DIF F mean platelet volume 10.5 fL 9.0-12 .4 Not Available [facility] (Lab) [address] [place], [address], 07/27/2023 13:42:11 07/27/19 24 07/27/2023 CBC/C OMPLE TE BLD COUNT W/DIF F neutrophils 73.8 % 39.0-7 2.0 high Not Available [facility] (Lab) [address] [place], [address], 07/27/2023 13:42:11 07/27/19 24 07/27/2023 CBC/C OMPLE TE BLD COUNT W/DIF F lymphocytes 12.9 % 16.0-4 7.0 low Not Available [facility] (Lab) [address] [place], [address], 07/27/2023 13:42:11 07/27/19 24 07/27/2023 CBC/C OMPLE TE BLD COUNT W/DIF F monocytes 10.1 % 5.0-12 .0 Not Available [facility] (Lab) [address] [place], [address], 07/27/2023 13:42:11 07/27/19 24 07/27/2023 CBC/C OMPLE TE BLD COUNT W/DIF F eosinophils 2.1 % 1.0-7. 0 Not Available [facility] (Lab) [address] [place], [address], 07/27/2023 13:42:11 07/27/19 24 07/27/2023 CBC/C OMPLE TE BLD COUNT W/DIF F basophils 0.6 % 0.0-2. 0 Not Available [facility] (Lab) [address] [place], [address], 07/27/2023 13:42:11 07/27/19 24 07/27/2023 CBC/C OMPLE TE BLD COUNT W/DIF F immature granulocytes 0.5 % 0.00-0 .50 Not Available [facility] (Lab) [address] [place], [address], 07/27/2023 13:42:11 07/27/19 24 07/27/2023 CBC/C OMPLE TE BLD COUNT W/DIF F neutrophils, absolute count 7.63 x10'3 /uL 1.5-8. 0 Not Available [facility] (Lab) [address] [place], [address], 07/27/2023 13:42:11 07/27/19 24 07/27/2023 CBC/C OMPLE TE BLD COUNT W/DIF F lymphocytes, absolute count 1.33 x10'3 /uL 1.07-3 .43 Not Available [facility] (Lab) [address] [place], [address], 07/27/2023 13:42:11 07/27/19 24 07/27/2023 CBC/C OMPLE TE BLD COUNT W/DIF F monocytes, absolute count 1.04 x10'3 /uL 0.29-0 .99 high Not Available [facility] (Lab) [address] [place], [address], 07/27/2023 13:42:11 07/27/19 24 07/27/2023 CBC/C OMPLE TE BLD COUNT W/DIF F eosinophils, absolute count 0.22 x10'3 /uL 0.02-0 .53 Not Available [facility] (Lab) [address] [place], [address], 07/27/2023 13:42:11 07/27/19 24 07/27/2023 CBC/C OMPLE TE BLD COUNT W/DIF F basophils, absolute count 0.06 x10'3 /uL 0.01-0 .08 Not Available [facility] (Lab) [address] [place], [address], 07/27/2023 13:42:11 07/27/19 24 07/27/2023 CBC/C OMPLE TE BLD COUNT W/DIF F immature granulocytes ,absolute 0.05 x10'3 /uL 0.00-0 .05 Not Available [facility] (Lab) [address] [place], [address], 07/27/2023 13:42:11 07/27/19 24 07/27/2023 CBC/C OMPLE TE BLD COUNT W/DIF F nucleated red blood cells 0.0 % -0 Not Available [facility] (Lab) [address] [place], [address], 07/27/2023 13:42:11 07/27/19 24 07/27/2023 CBC/C OMPLE TE BLD COUNT W/DIF F NRBC# 0.00 x10'3 /uL Not Available [facility] (Lab) [address] [place], [address], 07/27/2023 13:42:11 07/27/19 24 07/27/2023 LIPID PANEL cholesterol 144 mg/dL 140-19 9 NIH MARLENI NSUS RECOM MENDA TION FOR CLARE STERO L: ADULT CHILD LOW RISK: <200 <170 BORDE RLINE : <200- 239 ----- HIGH RISK: >240 >200 Not Available [facility] (Lab) [address] [place], [address], 07/27/2023 19:00:03 07/27/19 24 07/27/2023 LIPID PANEL triglyceride s 249 mg/dL 0-150 high NIH MARLENI NSUS REPOR T RECOM MENDA TION FOR TRIGL YCERI MARIA C: ADULT CHILD LOW RISK: <150 ----- BODER LINE: 150-1 99 ----- HIGH RISK: >200 ----- Not Available [facility] (Lab) [address] [place], [address], 07/27/2023 19:00:03 07/27/19 24 07/27/2023 LIPID PANEL HDL cholesterol 31 mg/dL 40- low Not Available [facility] (Lab) [address] [place], [address], 07/27/2023 19:00:03 07/27/19 24 07/27/2023 LIPID PANEL LDL cholesterol, calculated 63 mg/dL 0-130 NIH MARLENI NSUS REPOR T RECOM MENDA TIONS FOR LDL: ADULT CHILD LOW RISK <130 <110 (OPTI MAL LDL) <100 ----- BORDE RLINE : 130-1 59 ----- HIGH RISK: >160 >130 A TRIGL YCERI DE RESUL T >400 INVAL IDATE S THE CALCU LATIO N FOR LDL FRACT IONAT ION - THE LDL RESUL T WILL NOT BE REPOR CHACHA. Not Available [facility] (Lab) [address] [place], [address], 07/27/2023 19:00:03 07/27/19 24 07/27/2023 COMPR EHENS GUEVARA METAB OLIC PANEL sodium 137 mmol/ L 137-14 5 Not Available [facility] (Lab) [address] [place], [address], 07/27/2023 19:00:08 07/27/19 24 07/27/2023 COMPR EHENS GUEVARA METAB OLIC PANEL potassium 4.5 mmol/ L 3.5-5. 1 Not Available [facility] (Lab) [address] [place], [address], 07/27/2023 19:00:08 07/27/19 24 07/27/2023 COMPR EHENS GUEVARA METAB OLIC PANEL chloride 104 mmol/ L 98-107 Not Available [facility] (Lab) [address] [place], [address], 07/27/2023 19:00:08 07/27/19 24 07/27/2023 COMPR EHENS GUEVARA METAB OLIC PANEL carbon dioxide 30 mmol/ L 22-30 Not Available [facility] (Lab) [address] [place], [address], 07/27/2023 19:00:08 07/27/19 24 07/27/2023 COMPR EHENS GUEVARA METAB OLIC PANEL anion gap 7.5 mmol/ L 14- low Not Available [facility] (Lab) [address] [place], [address], 07/27/2023 19:00:08 07/27/19 24 07/27/2023 COMPR EHENS GUEVARA METAB OLIC PANEL glucose 130 mg/dL 70-99 high Not Available [facility] (Lab) [address] [place], [address], 07/27/2023 19:00:08 07/27/19 24 07/27/2023 COMPR EHENS GUEVARA METAB OLIC PANEL BUN 26 mg/dL 8-19 high Not Available [facility] (Lab) [address] [place], [address], 07/27/2023 19:00:08 07/27/19 24 07/27/2023 COMPR EHENS GUEVARA METAB OLIC PANEL creatinine 1.40 mg/dL 0.66-1 .25 high Not Available [facility] (Lab) [address] [place], [address], 07/27/2023 19:00:08 07/27/19 24 07/27/2023 COMPR EHENS GUEVARA METAB OLIC PANEL GFR 48 Refer ence Range : Wilcox ge GFR Healt hy Adult : >60 mL/mi n/1.7 3 m2 Chron ic Kidne y Disea se: 15-60 mL/mi n/1.7 3 m2 Kidne y Failu re: <15/m L/min /1.73 m2 www.n iddk. nih.g ov The MDRD study equat ion has not been valid ated in child rell <18 years of age; pregn ant women ; the elder ly >85 years of age; or in some racia l or ethni c subgr oups, such as Hispa nics. Outsi de the valid ated andrzej eters , estim ated GFR is less accur ate, requi ring clini simi judgm ent on a case- by-ca se basis . Clini simi inter preta tion for other races and ages must be made by the clini marilyn. The MDRD study equat ion has not been valid ated for the evalu ation of serum creat inine relat ed to nutri mahnaz l statu s or medic ation usage . For perso ns <18 years of age, a pedia tric GFR calcu lator is avail able on the [facility] websi te: https ://benson w.soco haas.o rg/pr ofess ional s/kdo qi/gf r_cal culat or Not Available [facility] (Lab) [address] [place], [address], 07/27/2023 19:00:08 07/27/19 24 07/27/2023 COMPR EHENS GUEVARA METAB OLIC PANEL alkaline phosphatase 82 U/L 38-126 Not Available [facility] (Lab) [address] [place], [address], 07/27/2023 19:00:08 07/27/19 24 07/27/2023 COMPR EHENS GUEVARA METAB OLIC PANEL alanine aminotransfe rase 21 U/L 0-50 Not Available [facility] (Lab) [address] [place], [address], 07/27/2023 19:00:08 07/27/19 24 07/27/2023 COMPR EHENS GUEVARA METAB OLIC PANEL aspartate aminotransfe rase 25 U/L 15-46 Not Available [facility] (Lab) [address] [place], [address], 07/27/2023 19:00:08 07/27/19 24 07/27/2023 COMPR EHENS GUEVARA METAB OLIC PANEL bilirubin, total 0.70 mg/dL 0.20-1 .30 Not Available [facility] (Lab) [address] [place], [address], 07/27/2023 19:00:08 07/27/19 24 07/27/2023 COMPR EHENS GUEVARA METAB OLIC PANEL calcium 9.2 mg/dL 8.4-10 .2 Not Available [facility] (Lab) [address] [place], [address], 07/27/2023 19:00:08 07/27/19 24 07/27/2023 COMPR EHENS GUEVARA METAB OLIC PANEL total protein 6.9 g/dL 6.3-8. 2 Not Available [facility] (Lab) [address] [place], [address], 07/27/2023 19:00:08 07/27/19 24 07/27/2023 COMPR EHENS GUEVARA METAB OLIC PANEL albumin 4.1 g/dL 3.0-4. 4 Not Available [facility] (Lab) [address] [place], [address], 07/27/2023 19:00:08 07/27/19 24 07/27/2023 COMPR EHENS GUEVARA METAB OLIC PANEL globulin 2.8 g/dL 2.6-4. 2 Not Available [facility] (Lab) [address] [place], [address], 07/27/2023 19:00:08 07/27/19 24 07/27/2023 COMPR EHENS GUEVARA METAB OLIC PANEL A/G ratio 1.5 ratio 1.0-2. 0 Not Available [facility] (Lab) [address] [place], [address], 07/27/2023 19:00:08 11/25/19 24 11/25/2023 CBC/C OMPLE TE BLD COUNT W/DIF F white blood cells 9.2 x10'3 /uL 4.2-10 .8 Not Available [facility] (Lab) [address] [place], [address], 11/25/2023 14:01:39 11/25/19 24 11/25/2023 CBC/C OMPLE TE BLD COUNT W/DIF F red blood cells 4.58 x10'6 /uL 4.10-5 .80 Not Available [facility] (Lab) [address] [place], [address], 11/25/2023 14:01:39 11/25/19 24 11/25/2023 CBC/C OMPLE TE BLD COUNT W/DIF F hemoglobin 15.5 g/dL 13.2-1 7.0 Not Available [facility] (Lab) [address] [place], [address], 11/25/2023 14:01:39 11/25/19 24 11/25/2023 CBC/C OMPLE TE BLD COUNT W/DIF F hematocrit 47.4 % 39.3-5 0.0 Not Available [facility] (Lab) [address] [place], [address], 11/25/2023 14:01:39 11/25/19 24 11/25/2023 CBC/C OMPLE TE BLD COUNT W/DIF F mean red cell volume 103.5 fL 80.0-9 7.0 high Not Available [facility] (Lab) [address] [place], [address], 11/25/2023 14:01:39 11/25/19 24 11/25/2023 CBC/C OMPLE TE BLD COUNT W/DIF F mean red cell hemoglobin 33.8 pg 27.0-3 3.0 high Not Available [facility] (Lab) [address] [place], [address], 11/25/2023 14:01:39 11/25/19 24 11/25/2023 CBC/C OMPLE TE BLD COUNT W/DIF F mean RBC HGB concentratio n 32.7 g/dL 31.0-3 6.0 Not Available [facility] (Lab) [address] [place], [address], 11/25/2023 14:01:39 11/25/19 24 11/25/2023 CBC/C OMPLE TE BLD COUNT W/DIF F red cell distribution width 13.9 % 11.8-1 5.5 Not Available [facility] (Lab) [address] [place], [address], 11/25/2023 14:01:39 11/25/19 24 11/25/2023 CBC/C OMPLE TE BLD COUNT W/DIF F platelets 275 x10'3 /uL 150-40 0 Not Available [facility] (Lab) [address] [place], [address], 11/25/2023 14:01:39 11/25/19 24 11/25/2023 CBC/C OMPLE TE BLD COUNT W/DIF F mean platelet volume 10.6 fL 9.0-12 .4 Not Available [facility] (Lab) [address] [place], [address], 11/25/2023 14:01:39 11/25/19 24 11/25/2023 CBC/C OMPLE TE BLD COUNT W/DIF F neutrophils 70.3 % 39.0-7 2.0 Not Available [facility] (Lab) [address] [place], [address], 11/25/2023 14:01:39 11/25/19 24 11/25/2023 CBC/C OMPLE TE BLD COUNT W/DIF F lymphocytes 16.6 % 16.0-4 7.0 Not Available [facility] (Lab) [address] [place], [address], 11/25/2023 14:01:39 11/25/19 24 11/25/2023 CBC/C OMPLE TE BLD COUNT W/DIF F monocytes 9.4 % 5.0-12 .0 Not Available [facility] (Lab) [address] [place], [address], 11/25/2023 14:01:39 11/25/19 24 11/25/2023 CBC/C OMPLE TE BLD COUNT W/DIF F eosinophils 2.9 % 1.0-7. 0 Not Available [facility] (Lab) [address] [place], [address], 11/25/2023 14:01:39 11/25/19 24 11/25/2023 CBC/C OMPLE TE BLD COUNT W/DIF F basophils 0.4 % 0.0-2. 0 Not Available [facility] (Lab) [address] [place], [address], 11/25/2023 14:01:39 11/25/19 24 11/25/2023 CBC/C OMPLE TE BLD COUNT W/DIF F immature granulocytes 0.4 % 0.00-0 .50 Not Available [facility] (Lab) [address] [place], [address], 11/25/2023 14:01:39 11/25/19 24 11/25/2023 CBC/C OMPLE TE BLD COUNT W/DIF F neutrophils, absolute count 6.49 x10'3 /uL 1.5-8. 0 Not Available [facility] (Lab) [address] [place], [address], 11/25/2023 14:01:39 11/25/19 24 11/25/2023 CBC/C OMPLE TE BLD COUNT W/DIF F lymphocytes, absolute count 1.53 x10'3 /uL 1.07-3 .43 Not Available [facility] (Lab) [address] [place], [address], 11/25/2023 14:01:39 11/25/19 24 11/25/2023 CBC/C OMPLE TE BLD COUNT W/DIF F monocytes, absolute count 0.87 x10'3 /uL 0.29-0 .99 Not Available [facility] (Lab) [address] [place], [address], 11/25/2023 14:01:39 11/25/19 24 11/25/2023 CBC/C OMPLE TE BLD COUNT W/DIF F eosinophils, absolute count 0.27 x10'3 /uL 0.02-0 .53 Not Available [facility] (Lab) [address] [place], [address], 11/25/2023 14:01:39 11/25/19 24 11/25/2023 CBC/C OMPLE TE BLD COUNT W/DIF F basophils, absolute count 0.04 x10'3 /uL 0.01-0 .08 Not Available [facility] (Lab) [address] [place], [address], 11/25/2023 14:01:39 11/25/19 24 11/25/2023 CBC/C OMPLE TE BLD COUNT W/DIF F immature granulocytes ,absolute 0.04 x10'3 /uL 0.00-0 .05 Not Available [facility] (Lab) [address] [place], [address], 11/25/2023 14:01:39 11/25/19 24 11/25/2023 CBC/C OMPLE TE BLD COUNT W/DIF F nucleated red blood cells 0.0 % -0 Not Available [facility] (Lab) [address] [place], [address], 11/25/2023 14:01:39 11/25/19 24 11/25/2023 CBC/C OMPLE TE BLD COUNT W/DIF F NRBC# 0.00 x10'3 /uL Not Available [facility] (Lab) [address] [place], [address], 11/25/2023 14:01:39 11/25/19 24 11/25/2023 COMPR EHENS GUEVARA METAB OLIC PANEL sodium 139 mmol/ L 137-14 5 Not Available [facility] (Lab) [address] [place], [address], 11/25/2023 17:02:48 11/25/19 24 11/25/2023 COMPR EHENS GUEVARA METAB OLIC PANEL potassium 4.9 mmol/ L 3.5-5. 1 Not Available [facility] (Lab) [address] [place], [address], 11/25/2023 17:02:48 11/25/19 24 11/25/2023 COMPR EHENS GUEVARA METAB OLIC PANEL chloride 105 mmol/ L 98-107 Not Available [facility] (Lab) [address] [place], [address], 11/25/2023 17:02:48 11/25/19 24 11/25/2023 COMPR EHENS GUEVARA METAB OLIC PANEL carbon dioxide 30 mmol/ L 22-30 Not Available [facility] (Lab) [address] [place], [address], 11/25/2023 17:02:48 11/25/19 24 11/25/2023 COMPR EHENS GUEVARA METAB OLIC PANEL anion gap 8.9 mmol/ L 14-22 low Not Available [facility] (Lab) [address] [place], [address], 11/25/2023 17:02:48 11/25/19 24 11/25/2023 COMPR EHENS GUEVARA METAB OLIC PANEL glucose 122 mg/dL 70-99 high Not Available [facility] (Lab) [address] [place], [address], 11/25/2023 17:02:48 11/25/19 24 11/25/2023 COMPR EHENS GUEVARA METAB OLIC PANEL BUN 22 mg/dL 8-19 high Not Available [facility] (Lab) [address] [place], [address], 11/25/2023 17:02:48 11/25/19 24 11/25/2023 COMPR EHENS GUEVARA METAB OLIC PANEL creatinine 1.25 mg/dL 0.66-1 .25 Not Available [facility] (Lab) [address] [place], [address], 11/25/2023 17:02:48 11/25/19 24 11/25/2023 COMPR EHENS GUEVARA METAB OLIC PANEL GFR 55 Refer ence Range : Wilcox ge GFR Healt hy Adult : >60 mL/mi n/1.7 3 m2 Chron ic Kidne y Disea se: 15-60 mL/mi n/1.7 3 m2 Kidne y Failu re: <15/m L/min /1.73 m2 www.n iddk. nih.g ov The MDRD study equat ion has not been valid ated in child rell <18 years of age; pregn ant women ; the elder ly >85 years of age; or in some racia l or ethni c subgr oups, such as [facility] nics. Outsi de the valid ated andrzej eters , estim ated GFR is less accur ate, requi ring clini simi judgm ent on a case- by-ca se basis . Clini simi inter preta tion for other races and ages must be made by the clini marilyn. The MDRD study equat ion has not been valid ated for the evalu ation of serum creat inine relat ed to nutri mahnaz l statu s or medic ation usage . For perso ns <18 years of age, a pedia tric GFR calcu lator is avail able on the [facility] websi te: https ://benson w.soco haas.o rg/pr ofess ional s/kdo qi/gf r_cal culat or Not Available [facility] (Lab) [address] [place], [address], 11/25/2023 17:02:48 11/25/19 24 11/25/2023 COMPR EHENS GUEVARA METAB OLIC PANEL alkaline phosphatase 98 U/L 38-126 Not Available [facility] (Lab) [address] [place], [address], 11/25/2023 17:02:48 11/25/19 24 11/25/2023 COMPR EHENS GUEVARA METAB OLIC PANEL alanine aminotransfe rase 18 U/L 0-50 Not Available [facility] (Lab) [address] [place], [address], 11/25/2023 17:02:48 11/25/19 24 11/25/2023 COMPR EHENS GUEVARA METAB OLIC PANEL aspartate aminotransfe rase 24 U/L 15-46 Not Available [facility] (Lab) [address] [place], [address], 11/25/2023 17:02:48 11/25/19 24 11/25/2023 COMPR EHENS GUEVARA METAB OLIC PANEL bilirubin, total 0.90 mg/dL 0.20-1 .30 Not Available [facility] (Lab) [address] [place], [address], 11/25/2023 17:02:48 11/25/19 24 11/25/2023 COMPR EHENS GUEVARA METAB OLIC PANEL calcium 9.3 mg/dL 8.4-10 .2 Not Available [facility] (Lab) [address] [place], [address], 11/25/2023 17:02:48 11/25/19 24 11/25/2023 COMPR EHENS GUEVARA METAB OLIC PANEL total protein 7.4 g/dL 6.3-8. 2 Not Available [facility] (Lab) [address] [place], [address], 11/25/2023 17:02:48 11/25/19 24 11/25/2023 COMPR EHENS GUEVARA METAB OLIC PANEL albumin 4.2 g/dL 3.0-4. 4 Not Available [facility] (Lab) [address] [place], [address], 11/25/2023 17:02:48 11/25/19 24 11/25/2023 COMPR EHENS GUEVARA METAB OLIC PANEL globulin 3.2 g/dL 2.6-4. 2 Not Available [facility] (Lab) [address] [place], [address], 11/25/2023 17:02:48 11/25/19 24 11/25/2023 COMPR EHENS GUEVARA METAB OLIC PANEL A/G ratio 1.3 ratio 1.0-2. 0 Not Available [facility] (Lab) [address] [place], [address], 11/25/2023 17:02:48 11/25/19 24 11/25/2023 LIPID PANEL cholesterol 134 mg/dL 140-19 9 low NIH MARLENI NSUS RECOM MENDA TION FOR CLARE STERO L: ADULT CHILD LOW RISK: <200 <170 BORDE RLINE : <200- 239 ----- HIGH RISK: >240 >200 Not Available [facility] (Lab) [address] [place], [address], 11/25/2023 17:02:49 11/25/19 24 11/25/2023 LIPID PANEL triglyceride s 211 mg/dL 0-150 high NIH MARLENI NSUS REPOR T RECOM MENDA TION FOR TRIGL YCERI MARIA C: ADULT CHILD LOW RISK: <150 ----- BODER LINE: 150-1 99 ----- HIGH RISK: >200 ----- Not Available [facility] (Lab) [address] [place], [address], 11/25/2023 17:02:49 11/25/19 24 11/25/2023 LIPID PANEL HDL cholesterol 33 mg/dL 40- low Not Available [facility] (Lab) [address] [place], [address], 11/25/2023 17:02:49 11/25/19 24 11/25/2023 LIPID PANEL LDL cholesterol, calculated 59 mg/dL 0-130 NIH MARLENI NSUS REPOR T RECOM MENDA TIONS FOR LDL: ADULT CHILD LOW RISK <130 <110 (OPTI MAL LDL) <100 ----- BORDE RLINE : 130-1 59 ----- HIGH RISK: >160 >130 A TRIGL YCERI DE RESUL T >400 INVAL IDATE S THE CALCU LATIO N FOR LDL FRACT IONAT ION - THE LDL RESUL T WILL NOT BE REPOR CHACHA. Not Available [facility] (Lab) [address] [place], [address], 11/25/2023 17:02:49 Result Notes None recorded. Problems Name Problem SNOMED Code Status Onset Date Resolution Date Notes Provider Name and Address Organization Details Recorded Time Pain in both feet 21310631946 546433 Active 2022 Not Available [facility] 3 18:20:36 Renewal of prescript ion Active 2021 Not Available [facility] 3 18:20:35 Pain of bilateral hands 91668128027 339646 Active 2021 Not Available [facility] 3 18:20:36 Ingrowing nail of toe of right foot 83382737524 046396 Active 2022 Not Available [facility] 3 18:20:36 Blood glucose outside reference range 463263312 Active 2021 Not Available [facility] 3 18:20:36 Gastroeso phageal reflux disease without esophagit is 869124250 Active 2020 Not Available [facility] 3 18:20:36 Benign prostatic hyperplas ia 595393682 Active 2021 Not Available [facility] 3 18:20:36 Intermitt ent confusion 533449424 Active 2021 Not Available [facility] 3 18:20:36 Confusion al state 179010987 Active 2021 Not Available [facility] 3 18:20:36 Numbness of hand 149598615 Active 2021 Not Available [facility] 3 18:20:36 Inguinal hernia 431319531 Completed Not Available [facility] 3 03:05:53 Chronic atrial fibrillat ion 058946051 Active 2020 Not Available [facility] 3 18:20:36 Acute upper respirato ry infection 80744892 Active 2021 Not Available [facility] 3 18:20:36 Hyperlipi demia 89817076 Active Not Available [facility] 3 18:20:36 Carpal tunnel syndrome 27459869 Active 2021 Not Available [facility] 3 18:20:36 COVID-19 478957757 Active 2021 Not Available [facility] 3 18:20:36 Dystrophi a unguium 47695224 Active 2020 Not Available [facility] 3 18:20:36 Sinusitis 81961500 Active 2022 Not Available [facility] 3 18:20:36 Insomnia 022262606 Active 2022 Not Available [facility] 3 18:20:36 Weakness present 717980173 Active 2023 HECTOR Mclaughlin null, [facility] [employer] 4 15:26:10 Pain of toe of right foot 05908305835 9101 Active 2023 Josep Bey DPM [address], [facility] [address], [place], [address] , [facility] [employer] [facility] 4 13:07:53 Unable to cut own toenails 459450308 Active 2023 Josep Bey DPM [address], [facility] [address], [place], [address] , [facility] [employer] 14:33:17 Problem Notes None recorded. Procedures Surgical History Date Name Laterality Status Provider Name and Address Organization Details Recorded Time 06/17/19 25 Nail Debridement completed Josep Bey DPM [address], [address], [place], [address], [employer] [facility] [employer] 06/16/2024 13:22:51 03/21/20 24 Nail Debridement completed Josep Bey DPM [address], [address], [place], [address], [employer] [facility] [employer] 03/21/2024 11:56:09 11/12/19 24 Nail Debridement completed Josep Bey DPM [address], [address], [place], [address], [employer] [facility] [employer] [facility] 11/12/2023 15:03:43 08/10/19 24 Nail Debridement completed Josep Bey DPM [address], [address], [place], [address], [employer] [facility] [employer] [facility] 08/10/2023 14:33:49 05/11/19 24 Nail Debridement completed Josep Bey DPM [address], [address], [place], [address], [employer] [facility] [employer] 05/11/2023 13:07:42 02/17/20 23 Nail Debridement completed SYLVIE Puentes, [address], [place], [address], [employer] [facility] [employer] [facility] 02/16/2023 11:25:21 11/18/19 23 Nail Debridement completed Josep Bey DPM [address], [address], [place], [address], [employer] [facility] [employer] [facility] 11/17/2022 10:35:29 08/19/19 23 Nail Debridement completed SYLVIE Puentes, [address], [place], [address], [employer] [facility] [employer] [facility] 08/18/2022 11:16:17 01/02/20 22 Hand completed Not Available [facility] 03:02:46 06/24/19 18 Colonoscopy completed Not Available [facility] 06/05/19 03:02:46 03/28/20 13 Rerepair ing hernia reduce completed Not Available [facility] 06/04/2022 03:02:46 09/02/19 08 Colonoscopy completed Not Available [facility] 06/05/19 03:02:46 Hernia Repair completed Not Available [facility] 06/04/2022 03:02:46 Excisions - Specify completed Not Available [facility] 06/04/2022 03:02:46 Imaging Results None recorded. Procedure Notes None recorded. Medical Equipment None Reported. Allergies No known drug allergies Medications Name Sig Start Date Stop Date Status Note LastModified by Organization Details LastModified Time Miralax 17 gram oral powder packet Take 17 g every day by oral route for 30 days. active Not Available Not Available No t Available amoxicill in 500 mg capsule TAKE 1 CAPSULE BY MOUTH THREE TIMES A DAY 03/03 completed Not Available Not Available Not Available betametha sone valerate 0.1 % topical ointment 05/25 completed Not Available Not Available Not Available prednison e 10 mg tablet active Not Available Not Available Not Available atorvasta tin 20 mg tablet TAKE 1 TABLET DAILY active Not Available Not Available No t Available donepezil 5 mg tablet TAKE 1 TABLET BY MOUTH NIGHTLY 03/03 completed Not Available Not Available Not Available trazodone 50 mg tablet TAKE 1 TABLET BY MOUTH EVERY DAY AT BEDTIME NEEDED FOR SLEEP 03/03 completed Not Available Not Available Not Available azithromy deb 250 mg tablet TAKE 2 TABLETS BY MOUTH TODAY, THEN TAKE 1 TABLET DAILY FOR 4 DAYS active Not Available Not Available No t Available benzonata te 200 mg capsule Take 1 capsule 3 times a day by oral route as needed. active Not Available Not Available No t Available hydrocodo ne 5 mg-acetam inophen 325 mg tablet TAKE 1 TABLET BY MOUTH EVERY 6 HOURS NEEDED FOR PAIN 02/06 completed Not Available Not Available Not Available donepezil 10 mg tablet active Not Available Not Available Not Available Medrol (Zhao) 4 mg tablets in a dose pack as directed . 09/07 completed Not Available Not Available Not Available Seroquel 25 mg tablet Take 1 tablet every day by oral route at bedtime. 12/04/ 2023 01/23 /2024 completed Not Available Not Available Not Available ciproflox acin 250 mg tablet TAKE 1 TABLET BY MOUTH TWICE A DAY FOR 7 DAYS 01/25 completed Not Available Not Available Not Available triamcino lone acetonide 0.1 % topical cream 05/25 completed Not Available Not Available Not Available famotidin e 20 mg tablet active Not Available Not Available Not Available tamsulosi n 0.4 mg capsule Take 1 capsule every day by oral route at bedtime. active Not Available Not Available No t Available ciproflox acin 0.3 % eye drops 04/21 completed Not Available Not Available Not Available simvastat in 20 mg tablet Take 1 tablet every day by oral route for 90 days. 04/23 completed Not Available Not Available Not Available triamcino lone acetonide 0.1 % topical ointment 02/06 completed Not Available Not Available Not Available triamcino lone acetonide 0.025 % topical ointment 12/25 completed Not Available Not Available Not Available omeprazol e 20 mg capsule,d elayed release TAKE 1 CAPSULE DAILY active Not Available Not Available No t Available desonide 0.05 % lotion 05/25 completed Not Available Not Available Not Available polyethyl debora glycol 3350 17 gram/dose oral powder 03/05 completed duplicat e Not Available Not Available Not Available albuterol sulfate HFA 90 mcg/actua tion aerosol inhaler INHALE 2 PUFFS BY MOUTH EVERY 4 TO 6 HOURS NEEDED active Not Available Not Available No t Available hydrocort isone 2.5 % topical ointment APPLY TO AFFECTED AREA(S) TWICE DAILY FOR 2 - 3 WEEKS 05/31 completed Not Available Not Available Not Available fluticaso ne propionat e 50 mcg/actua tion nasal spray,thiago pension 2 sprays each nostril once daily 09/12 completed Not Available Not Available Not Available rosuvasta tin 20 mg tablet TAKE 1 TABLET DAILY active Not Available Not Available No t Available mirtazapi ne 7.5 mg tablet TAKE ONE TABLET BY MOUTH NIGHTLY 03/03 completed Not Available Not Available Not Available Aspir-81 1 daily 12/19/ 2013 09/06 /2022 completed Not Available Not Available Not Available multivita min QD 2016 active Not Available Not Available Not Avai lable Durezol 0.05 % eye drops 04/21 completed Not Available Not Available Not Available GaviLyte- N 420 gram oral solution 08/25 completed Not Available Not Available Not Available GaviLyte- G 236 gram-22.7 4 gram-6.74 gram-5.86 gram oral solution 08/25 completed Not Available Not Available Not Available Ilevro 0.3 % eye drops,thiago pension active Not Available Not Available Not Available Eliquis 5 mg tablet TAKE 1 TABLET TWICE A DAY active Not Available Not Available No t Available oxygen 1L (2L ambulati ng) 04/23 completed Not Available Not Available Not Available BinaxNOW COVID-19 Ag Self Test kit Use as Directed on the Package 06/19 completed Not Available Not Available Not Available Vitals Date Recorded Body height Body mass index (BMI) Body weight Heart rate Respiratory rate Body temperature Oxygen saturation Oxygen saturation in Arterial blood by Pulse oximetry Systolic blood pressure Diastolic blood pressure Provider Name and Address Organization Details Last Updated DateTime 4 187.96 cm 23.8 kg/m2 69718.5 9 g 74 /min 14 /min 97.4 [degF] 98 % 98 % 114 mm[Hg] 68 mm[Hg] Janine Dong [place] [employer] 4 12:16:57 Date Recorded Body height Body mass index (BMI) Body weight Heart rate Respiratory rate Oxygen saturation Oxygen saturation in Arterial blood by Pulse oximetry Systolic blood pressure Diastolic blood pressure Provider Name and Address Organization Details Last Updated DateTime 4 187.96 cm 23.8 kg/m2 20019.5 9 g 78 /min 14 /min 97 % 97 % 121 mm[Hg] 67 mm[Hg] Asuncion Funk [employer] 4 12:13:04 Date Recorded Body height Body mass index (BMI) Body weight Heart rate Respiratory rate Body temperature Oxygen saturation Oxygen saturation in Arterial blood by Pulse oximetry Systolic blood pressure Diastolic blood pressure Provider Name and Address Organization Details Last Updated DateTime 4 187.96 cm 23.8 kg/m2 75842.5 9 g 76 /min 14 /min 98.6 [degF] 98 % 98 % 120 mm[Hg] 70 mm[Hg] Yudi Dsouza [facility] 4 12:40:15 Date Recorded Body height Body mass index (BMI) Body weight Heart rate Respiratory rate Oxygen saturation Oxygen saturation in Arterial blood by Pulse oximetry Systolic blood pressure Diastolic blood pressure Provider Name and Address Organization Details Last Updated DateTime 4 187.96 cm 23.8 kg/m2 44796.5 9 g 78 /min 14 /min 98 % 98 % 116 mm[Hg] 73 mm[Hg] Asuncion Good [place] [employer] [facility] 4 11:06:27 Date Recorded Body height Body mass index (BMI) Body weight Heart rate Respiratory rate Oxygen saturation Oxygen saturation in Arterial blood by Pulse oximetry Systolic blood pressure Diastolic blood pressure Provider Name and Address Organization Details Last Updated DateTime 5 187.96 cm 23.8 kg/m2 90054.5 9 g 71 /min 14 /min 97 % 97 % 136 mm[Hg] 87 mm[Hg] Asuncion Funk [place] [employer] [facility] 5 12:12:18 Social History Question Answer Notes LastModified by Organization Details LastModified Time Tobacco Smoking Status Never Smoker Not Available [facility] 06/04/2022 02:53:46 Do You Have An Advance Directive? Yes MIGRATION.0301 [id number] Information not available 06/04/2022 What Is Your Level Of Alcohol Consumption? None MIGRATION.030 249034 Information not available 06/04/2022 Are You Blind Or Do You Have Difficulty Seeing? Yes MIGRATION.030 892724 Information not available 06/04/2022 What Is Your Level Of Caffeine Consumption? Occasional MIGRATION.0301 235937 Information not available 06/04/2022 How Much Tobacco Do You Chew? None MIGRATION.0301 691492 Information not available 06/04/2022 In The 14 Days Before Symptom Onset, Have You Had Close Contact With A Laboratory-confi rmed COVID-19 While That Case Was Ill? No MIGRATION.030 978840 Information not available 06/04/2022 In The 14 Days Before Symptom Onset, Have You Had Close Contact With A Person Who Is Under Investigation For COVID-19 While That Person Was Ill? No MIGRATION.0301 441850 Information not available 06/04/2022 Are You Deaf Or Do You Have Serious Difficulty Hearing? No MIGRATION.0301 517321 Information not available 06/04/2022 What Type Of Diet Are You Following? REGULAR MIGRATION.0301 084099 Information not available 06/04/2022 Which Illicit Or Recreational Drugs Have You Used? None MIGRATION.0301 858128 Information not available 06/04/2022 Do You Or Have You Ever Used E-cigarettes Or Vape? Never Used Electronic Cigarettes MIGRATION.0301 320586 Information not available 06/04/2022 What Is The Highest Grade Or Level Of School You Have Completed Or The Highest Degree You Have Received? [id number] MIGRATION.0301 410912 Information not available 06/04/2022 What Is Your Occupation? Retired MIGRATION.0301 682998 Information not available 06/04/2022 Have There Been Any Changes To Your Family Or Social Situation? No MIGRATION.0301 004748 Information not available 06/04/2022 What Is The Fluoride Status Of Your Home? Unknown MIGRATION.0301 497500 Information not available 06/04/2022 Are There Any Guns Present In Your Home? Yes MIGRATION.0301 265302 Information not available 06/04/2022 Do You Use Insect Repellent Routinely? No MIGRATION.0301 970484 Information not available 06/04/2022 Where Do You Live? [facility] MIGRATION.0301 951506 Information not available 06/04/2022 Do You Have A Medical Power Of Windows Architect? Yes MIGRATION.0301 566657 Information not available 06/04/2022 What Was The Date Of Your Most Recent Tobacco Screening? 04/28/2023 [email or web address] Information not available 04/28/2023 Do You Have Any Pets? No MIGRATION.0301 018506 Information not available 06/04/2022 What Is Your Relationship Status? MIGRATION.0301 241044 Information not available 06/04/2022 Do You Use Your Seat Belt Or Car Seat Routinely? Yes MIGRATION.0301 630181 Information not available 06/04/2022 Do You Have Smoke And Carbon Monoxide Detectors In Your Home? Yes MIGRATION.0301 133060 Information not available 06/04/2022 Are You Passively Exposed To Smoke? No MIGRATION.0301 585326 Information not available 06/04/2022 Do You Or Have You Ever Used Smokeless Tobacco? Never Used Smokeless Tobacco MIGRATION.0301 962047 Information not available 06/04/2022 Are There Any Smokers In Your House? No MIGRATION.0301 131265 Information not available 06/04/2022 How Much Tobacco Do You Smoke? No MIGRATION.0301 299773 Information not available 06/04/2022 What Types Of Sporting Activities Do You Participate In? None MIGRATION.0301 731393 Information not available 06/04/2022 Do You Feel Stressed (tense, Restless, Nervous, Or Anxious, Or Unable To Sleep At Night)? [id number] MIGRATION.0301 289213 Information not available 06/04/2022 Do You Use Any Illicit Or Recreational Drugs? No MIGRATION.0301 219946 Information not available 06/04/2022 Do You Use Sunscreen Routinely? Yes MIGRATION.0301 633850 Information not available 06/04/2022 Has Tobacco Cessation Counseling Been Provided? No Not Needed-ne alejo Smoked MIGRATION.0301 060883 Information not available 06/04/2022 How Many Years Have You Smoked Tobacco? 0 MIGRATION.0301 903819 Information not available 06/04/2022 Have You Recently Traveled Abroad? No MIGRATION.0301 098143 Information not available 06/04/2022 Do You Have Any Dietary Restrictions? No MIGRATION.0301 645329 Information not available 06/04/2022 Do You Or Have You Ever Used Any Other Forms Of Tobacco Or Nicotine? No MIGRATION.0301 213657 Information not available 06/04/2022 Sex: Male Functional Status Question Answer Note LastModified by Organizat ion Details LastModified Time Do you have difficulty walking or climbing stairs? Yes MIGRATION.9095451 026 Information not available 06/04/2022 Do you have transportation difficulties? No MIGRATION.0145404 026 Information not available 06/04/2022 Are you able to walk? YESWOREST MIGRATION.8205706 026 Information not available 06/04/2022 Do you have difficulty doing errands alone? Yes MIGRATION.9867634 026 Information not available 06/04/2022 Are you able to care for yourself? No MIGRATION.6290408 026 Information not available 06/04/2022 Do you have difficulty dressing or bathing? Yes MIGRATION.6474686 026 Information not available 06/04/2022 What is your exercise level? None MIGRATION.8195680 026 Information not available 06/04/2022 Mental Status Question Answer Note LastModified by Organizat ion Details LastModified Time Do you have difficulty concentrating, remembering or making decisions? Yes MIGRATION.[id number] 6 Information not available 06/04/2022 Family History Relationship Description Onset Age of this Age Resolved Age Notes LastModified by Organization Details LastModified Time Mother Pulmonary embolism MIGRATION.050 [id number] Not available 06/04/2022 03:02:47 Mother Malignant melanoma of skin MIGRATION.261 0156097 Not available 06/04/2022 03:02:47 Mother Carotid artery stenosis MIGRATION.926 5941985 Not available 06/04/2022 03:02:47 Father Benign essential hypertension MIGRATION.631 [id number] Not available 06/04/2022 03:02:47 Medical History Condition Response NERVE DISEASE N BLINDNESS N RHEUMATIC FEVER N KIDNEY STONES N BLADDER PROBLEMS N MRSA N OTHER # 1 N POLIO N LUNG DISEASE/DISORDER N RADIATION / CHEMOTHERAPY N COPD N Other # 2 N BLOOD DISEASES N EAR OR HEARING PROBLEMS N MUMPS N BOWEL PROBLEMS N DEPRESSION (INCLUDING POST ) N STROKE/TIA N ULCERS N BENIGN PROSTATIC HYPERPLASIA N MEASLES N MYOCARDIAL INFARCTION N OBESITY N GERD/NAUSEA Y ANEURYSM N URINARY/BLADDER/KIDNEY PROBLEMS N CORONARY ARTERY DISEASE (CAD) N ADDICTION CONCERNS N ENDOMETRIOSIS N Impotence N USE OF BLOOD THINNERS N SKIN PROBLEMS N GASTROINTESTINAL DISORDER N PERIPHERAL VASCULAR DISEASE N MUSCLE,JOINT OR BONE PROBLEMS N GASTROINTESTINAL BLEEDING N BLOOD CLOTS N ASTHMA N CATARACTS N ERECTILE DYSFUNCTION N VARICOSITIES N GI PROBLEMS N Low Testosterone N INFERTILITY N AIDS/HIV N CHEMOTHERAPY / RADIATION N LIVER DISEASE N MALE HYPOGONADISM N HYPERTENSION N Deficiency N TOURETTE'S N ANXIETY DISORDER N BLOOD TRANSFUSION N ANEMIA/BLOOD DISORDER N CHRONIC EAR INFECTIONS N BRONCHITIS N TUBERCULOSIS N GLAUCOMA N FOOT PROBLEM Y DIVERTICULITIS N SLEEP APNEA N CHICKENPOX N INFECTIOUS DISEASE N HEART ARRHYTHMIA N PROSTATE N INSOMNIA N HIGH CHOLESTEROL / HYPERLIPIDEMIA Y HYPERTHYROIDISM N EYE PROBLEMS N EDEMA N CHRONIC PAIN SYNDROME N HYPOTHYROIDISM N CAROTID BLOCKAGE N CONSTIPATION N BACK / NECK PROBLEMS N HAVE YOU BEEN HOSPITALIZED OR SEEN IN [facility] IN THE PAST YEAR ? N ATHEROSCLEROSIS N BREAST PROBLEMS N DIALYSIS N ECZEMA N OSTEOPOROSIS N ARTHRITIS N APPENDICITIS N DIABETES, TYPE N BAD TEETH N ENT N HEARTBURN / REFLUX N AUTISM SPECTRUM DISORDER (ASD) N HEPATITIS / LIVER DISEASE N GOUT N SLEEP DISORDER N ALZHEIMER'S DISEASE N Brain Problems N HERPES N DEMENTIA N HEADACHES/MIGRAINES N SEIZURES/EPILEPSY N VASCULAR DISEASE N PACEMAKER N Blood Disorder N DIZZINESS N HEART DISEASE/HEART PROBLEMS N KIDNEY DISEASE N MULTIPLE SCLEROSIS N CARDIAC ARRHYTHMIA N CANCER: SPECIFY N ATRIAL FIBRILLATION N Gall Stones N PULMONARY EMBOLISM N AUTOIMMUNE DISEASE N Immunizations Vaccine Type Date Status Note Provider Nam e and Address Organization Details Recorded Time Influenza, high-dose, quadrivalent, PF 01/06/2019 completed Not Available [facility] 18:20:36 Influenza, high-dose, trivalent, PF 01/06/2018 completed Not Available [facility] 2022 18:20:36 Influenza, high-dose, trivalent, PF 02/20/2017 completed Not Available [facility] 2022 18:20:36 Influenza, high-dose, trivalent, PF 01/20/2016 completed Not Available [facility] 2022 18:20:36 Influenza, split virus, trivalent, PF 02/15/2014 completed Not Available [facility] 2022 18:20:36 Influenza, high-dose, trivalent, PF 02/08/2013 completed Not Available [facility] 2022 18:20:36 Influenza, high-dose, quadrivalent, PF 02/06/2022 completed Not Available [facility] 18:20:36 Past Encounters Encounter ID Performer Location Encounter Start Date Encounter Closed Date Diagnosis/Indication Diagnosis SNOMED-CT Code Diagnosis ICD10 Code Diagnosis Note [id number] [facility] [place] [address] [place] [address] 07/12/2020 00:00:00 07/16/2020 08:55:00 [id number] [facility] [place] [address] [place] [address] 09/26/2020 00:00:00 09/28/2020 17:15:13 [id number] [facility] Daren cooley [address] [place] [address] 10/18/2020 00:00:00 10/18/2020 22:40:38 [id number] [facility] [place] [address] , [place] [address] 01/03/2021 00:00:00 01/25/2021 22:05:43 [id number] [facility] [place] [address] , [place] [address] 01/24/2021 00:00:00 02/04/2021 21:49:02 [id number] [facility] [address] , [facility] [address] [place] [address] 01/28/2021 00:00:00 01/29/2021 14:42:35 [id number] [facility] [place] [address] [place] [address] 02/18/2021 00:00:00 02/18/2021 15:45:28 [id number] [facility] [place] [address] [place] [address] y , [place] [address] 03/05/2021 00:00:00 03/06/2021 23:42:00 [id number] [facility] [place] [address] [place] [address] y , [place] [address] 04/23/2021 00:00:00 04/27/2021 15:55:23 [id number] [facility] [place] [address] [place] [address] 05/02/2021 00:00:00 05/02/2021 13:28:30 [id number] [facility] [place] [address] , [place] [address] 05/23/2021 00:00:00 06/01/2021 14:18:29 [id number] [facility] [place] [address] [place] [address] 07/08/2021 00:00:00 07/09/2021 11:37:15 [id number] [facility] [place] [address] , [place] [address] 08/22/2021 00:00:00 09/14/2021 17:58:24 [id number] [facility] [place] [address] [place] [address] 09/23/2021 00:00:00 09/24/2021 10:14:51 [id number] [facility] [place] [address] [facility] [address] , [place] [address] 11/21/2021 00:00:00 12/15/2021 22:30:19 [id number] [facility] [place] [address] [place] [address] 12/02/2021 00:00:00 12/02/2021 21:12:55 [id number] [facility] [place] [address] [place] [address] 12/10/2021 00:00:00 12/10/2021 12:06:03 [id number] [facility] [place] [address] [place] [address] 01/14/2022 00:00:00 01/14/2022 10:07:56 [id number] [facility] [place] [address] [facility] [address] , [place] [address] 02/06/2022 00:00:00 02/08/2022 14:36:19 [id number] [facility] [place] [address] [place] [address] 02/17/2022 00:00:00 02/18/2022 10:45:17 [id number] [facility] [place] [address] [place] [address] 02/25/2022 00:00:00 02/25/2022 17:04:37 [id number] [facility] [place] [address] [place] [address] 04/29/2022 00:00:00 04/30/2022 06:38:56 [id number] [facility] [place] [address] [place] [address] 05/19/2022 00:00:00 05/19/2022 10:48:36 [id number] Evon Yoon MD [facility] Internal [address] [place] [address] 06/19/2022 10:39:08 06/19/2022 11:47:07 Hyperlipidemia 51512471 E78.5 Renewal of prescription [id number] Z76.0 Benign pro static hyperplasia 414484237 N40.0 Chronic at rial fibrillation 509326673 I48.20 Gastroesop hageal reflux disease without esophagitis 222146503 K21.9 [id number] Josep Bey DPM [facility] [place] [address] [place] [address] 08/18/2022 10:44:34 08/18/2022 11:19:22 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 Nails were debrided and greater than 50% length and thickness where needed. Unable to cut own toenails [id number] Z74.1 Pain in both feet 510207 5766 [id number] M79.671 M79.672 Secondary to nailsRecom mend supportive shoe gear and continue custom orthotics secondary to toe deformityM onitor for wounds daily if present seek medical attention immediatel yFollow-up in 3 months [id number] Evon Yoon MD [facility] Internal [facility] [address] [facility] [place] [address] 10/14/2022 15:09:49 10/14/2022 15:58:17 Benign prostatic hyperplasia 342799841 N40.0 Chronic at rial fibrillation [id number] I48.20 Gastroesop hageal reflux disease without esophagitis 901732608 K21.9 Hyperlipidemia 94045511 E78.5 [id number] Josep Bey DPM [facility] [place] [address] [place] [address] 11/17/2022 10:10:51 11/17/2022 10:42:39 Dystrophia unguium 71272686 L60.3 Nails 1 through 10 were debrided with sharp mechanical debridemen t without incident. Nails were debrided and greater than 50% length and thickness where needed. Unable to cut own toenails [id number] Z74.1 [id number] Josep Bey DPM [facility] [place] [address] [place] [address] 02/16/2023 11:18:59 02/16/2023 12:09:48 Dystrophia unguium 63098744 L60.3 Nails 1 through 10 were debrided with sharp mechanical debridemen t without incident. Nails were debrided and greater than 50% length and thickness where needed. Unable to cut own toenails 119290902 Z74.1 Pain in both feet 838032 3856 6771902 M79.671 M79.672 Secondary to nailsRecom mend supportive shoe gear and continue custom orthotics secondary to toe deformityM onitor for wounds daily if present seek medical attention immediatel yFollow-up in 3 months [id number] MD JASEN WolfJ[facility] Internal [facility] Daren cooley [address] [place] [place] [address] 03/03/2023 15:08:10 03/03/2023 16:33:23 Hyperlipidemia 10618238 E78.5 Long-term drug therapy 617390892 Z79.899 Insomnia 378452384 G47.0 0 Benign pro static hyperplasia 270014390 N40.0 Chronic at rial fibrillation 200409503 I48.20 Gastroesop hageal reflux disease without esophagitis 341000323 K21.9 [id number] MD FRANCISCO Wolf_[facility] Internal Med Daren cooley [address] [place] [address] 04/28/2023 09:42:36 04/28/2023 12:15:53 Benign prostatic hyperplasia 486755637 N40.0 Chronic at rial fibrillation 837051907 I48.20 Gastroesop hageal reflux disease without esophagitis 663175178 K21.9 [id number] Josep Bey DPM [facility] [place] [address] [place] [address] 05/11/2023 12:03:36 05/19/2023 13:08:18 Ingrowing nail of toe of right foot [id number] 9774096 L60.0 slant back procedureM onitor for new infection if present seek medical attention immediatel yIf continues to be problemati c may require partial matrix procedure Dystrophia unguium 80233 009 L60.3 Nails 1 through 10 were debrided with sharp mechanical debridemen t without incident. Nails were debrided and greater than 50% length and thickness where needed. Pain of to e of right foot [id number] 92383 M79.595 [id number] Josep Bey DPM [facility] [place] [address] [place] [address] 08/10/2023 11:57:44 08/10/2023 14:45:52 Pain in both feet 8554065530 2213383 M79.671 M79.672 Secondary to nailsRecom mend supportive shoe gear and continue custom orthotics secondary to toe deformityM onitor for wounds daily if present seek medical attention immediatel yFollow-up in 3 months Dystrophia unguium 07038 009 L60.3 Nails 1 through 10 were debrided with sharp mechanical debridemen t without incident. Nails were debrided and greater than 50% length and thickness where needed. 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 Nails were debrided and greater than 50% length and thickness where needed. Unable to cut own toenails 989687926 Z74.1 [id number] Josep Bey DPM [facility] [place] [address] [place] [address] 03/21/2024 10:54:25 04/01/2024 08:21:21 Dystrophia unguium 39928186 L60.3 Nails 1 through 10 were debrided with sharp mechanical debridemen t without incident. Nails were debrided and greater than 50% length and thickness where needed. Unable to cut own toenails 830964339 Z74.1 [id number] Josep Bey DPM [facility] [place] [address] [place] [address] 06/16/2024 11:52:44 06/21/2024 11:15:21 Dystrophia unguium 51309595 L60.3 Nails 1 through 10 were debrided with sharp mechanical debridemen t without incident. Nails were debrided and greater than 50% length and thickness where needed. Unable to cut own toenails [id number] Z74.1 Health Concerns Section Related Observation LastModified by Organization Detai ls LastModified Time None Recorded Concern Status LastModified by Organization Details LastModified Time None Recorded Advance Directives Directive Y: Payers Encounter Date Sequence Insurance Name Policy Number Policy Simpson Covered Member ID Simpson Member ID Guarantor Name 05/11/2023 1 [employer] - MED[employer]ARE [employer] - GROUP MEDICARE ADVANTAGE (MEDICARE REPLACEMENT PPO) [id number] Petar Marquez [id number] Petar Marquez 08/10/2023 1 [employer] - MED[employer]ARE [employer] - GROUP MEDICARE ADVANTAGE (MEDICARE REPLACEMENT PPO) [id number] Petarroxana Marquez [id number] Petar Marquez 11/12/2023 1 [employer] - MEDICARE SOLUTIONS - GROUP MEDICARE ADVANTAGE (MEDICARE REPLACEMENT PPO) [id number] Petarroxana Marquez [id number] Petar Marquez 03/21/2024 1 [employer] - MEDICARE SOLUTIONS - GROUP MEDICARE ADVANTAGE (MEDICARE REPLACEMENT PPO) [id number] Petar Marquez [id number] Petar Marquez 06/16/2024 1 [employer] - MEDICARE SOLUTIONS - GROUP MEDICARE ADVANTAGE (MEDICARE REPLACEMENT PPO) [id number] Petar Marquez [id number] Petar Marquez Notes Date Note Type Note Provider Name and Address Organization Details Recorded Time 05/11/2023 text/html . Patient is an 82-year-old male who presents for thickened long toenails. Patient states he is unable to cut the nails and states he is concerned he might have an ingrown toenail to the great toe. Patient states he has pain and pressure but denies any redness or drainage. Patient denies any other complaints. Josep Bey DPM [address], [place], [address], [employer] 05/11/2023 13:08:46 08/10/2023 text/html . Patient is an 82-year-old male who returns to the office for painful toenails. Patient denies any other complaints. Josep Bey DPM [address], [place], [address], [employer] 08/10/2023 14:34:05 11/12/2023 text/html Patient is an 83-year-old male who returns for routine foot care patient states overall he is doing well denies any open wounds or injury of the foot. Patient denies any pain with walking. Patient states his nails are long would like to have them cut as he can not bend over to cut them. Patient denies any other complaints. Josep Bey DPM [address], [place], [address], [employer] 11/12/2023 15:04:00 03/21/2024 text/html . Patient is an 83-year-old male he presents the office with his for routine foot care. Patient has dementia is unable to care for his feet. Patient has elongated toenails which need to be cut to prevent open wounds infection. Patient and denies any other complaints from the patient. Josep Bey DPM [address], [place], [address], [employer] [facility] 03/21/2024 11:57:51 06/16/2024 text/html Patient is an 83-year-old male he presents for routine foot care. Patient is unable to care for his feet in presents with his for nail care. Patient has no specific complaints. History is mainly from his . Who states he needs his nails cut. Josep Bey DPM [address], [place], [address], [employer] 06/16/2024 13:43:31
--- OUTSIDE RECORDS SUMMARY | 2024-07-26 10:02 | XMS_ITS | Encounter Summary ---
Author Organization [facility] Address [address] [place] [address] Phone Care Team Providers Care Channel Development Director Name Role Phone Nick Yoon MD Primary Care Provider [phone] Mark Montiel MD Unavailable [phone] Reason for Visit * Reason Comments Medication Refill Encounter Details Date Type Department Care Team (Late st Contact Info) Description 12/07/2022 Refill [facility] - Neurology 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 Requested Prescriptions Pending Prescriptions Disp Refills Mirtazapine (REMERON) 7.5 MG Tablet [Pharmacy Med Name: MIRTAZAPINE 7.5 MG TABLET] 30 Tablet 3 Sig: TAKE ONE TABLET BY MOUTH NIGHTLY Alpha-2 Receptor Antagonists (6 Month Refill Only) Protocol Failed - 12/07/2022 12:35 AM Failed - Patient has established therapy with Alpha-2 Receptor Antagonists for at least 6 months Passed - Visit with relevant provider in past 6 months or upcoming 90 days Recent Visits Date Type Provider Dept 10/06/22 Office Visit Mark Montiel MD [facility] 06/30/22 Office Visit Mark Montiel MD [facility] Showing recent visits within past 182 days and meeting all other requirements Future Appointments Date Type Provider Dept 01/22/23 Appointment Mark Montiel MD [facility] Showing future appointments within next 90 days and meeting all other requirements Passed - Has an encounter in the past 6 months with a depression or anxiety visit diagnosis documented in this encounter Plan of Treatment Not on file documented as of this encounter Visit Diagnoses Not on filedocumented in this encounter Care Teams Channel Development Director Relationship Specialty Start Date End Date Nick Yoon MD PCP - General Internal Medicine 03/26/22 Mark Montiel MD [address] [place] [address] Consulting Physician Neurology 01/15/23 documented as of this encounter
--- OUTSIDE RECORDS SUMMARY | 2024-07-26 10:02 | XMS_ITS | Encounter Summary ---
Author Organization [facility] Address [address] [place] [address] Phone Care Team Providers Care Airway Traffic Controller Name Role Phone Nick Yoon MD Primary Care Provider Mark Montiel MD Unavailable [phone] Reason for Visit * Reason Comments Medication Refill Encounter Details Date Type Department Care Team (Late st Contact Info) Description 03/10/2023 Refill [facility] - [facility] [address] [place] [phone] Mark Montiel MD [address] [place] [address] Medication Refill Social History Tobacco Use Types Packs/Day Years Used Date Smoking Tobacco: Never Smokeless Tobacco: Never Alcohol Use Standard Drinks/Week Comments Not Currently 0 (1 standard drink = 0.6 oz pur e alcohol) Sex and Gender Information Value Date Recorded Sex Assigned at Not on file 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 Requested Prescriptions Pending Prescriptions Disp Refills donepezil (ARICEPT) 10 MG Tablet [Pharmacy Med Name: DONEPEZIL HCL TABS 10MG] 90 Tablet 3 Sig: TAKE 1 TABLET NIGHTLY Antidementia Agents Protocol Failed - 03/10/2023 5:22 PM Failed - Patient has established therapy with Antidementia Agents for at least 6 months Passed - Visit with relevant provider in past 12 months or upcoming 90 days Recent Visits Date Type Provider Dept 01/22/23 Office Visit [facility] 10/06/22 Office Visit Mark Montiel MD [facility] 06/30/22 Office Visit [facility] Mont[facility] Showing recent visits within past 365 days and meeting all other requirements Future Appointments No visits were found meeting these conditions. Showing future appointments within next 90 days and meeting all other requirements ING SHOW HOST documented in this encounter Plan of Treatment Not on file documented as of this encounter Visit Diagnoses Not on filedocumented in this encounter Care Teams Airway Traffic Controller Relationship Specialty Start Date End Date Nick Yoon MD PCP - General Internal Medicine 03/26/22 Mark Montiel MD [address] [place] [address] Consulting Physician Neurology 01/15/23 documented as of this encounter
--- OUTSIDE RECORDS SUMMARY | 2024-07-26 10:02 | XMS_ITS | Clinical Summary ---
Author Organization [facility] Address [address] [place] [address] Phone Care Team Providers Care Rubber Mill Operator Name Role Phone Nick Yoon MD Primary Care Provider [phone] Mark Montiel MD Unavailable [phone] Allergies No known active allergies Medications apixaban (ELIQUIS) 5 MG Tablet Take 5 mg by mouth 2 times daily. Active Omeprazole 20 MG Tablet Delayed Response Take by mouth. Active Multiple Vitamin (MULTIVITAMIN PO) Take by mouth. Active rosuvastatin (CRESTOR) 20 MG Tablet Take 20 mg by mouth daily. Active tamsulosin (FLOMAX) 0.4 MG Capsule Take 0.4 mg by mouth daily. Active Zinc 50 MG Capsule Take by mouth. Active Cholecalciferol (VITAMIN D3 PO) Take by mouth. Active MAGNESIUM PO Take by mouth. Active Ascorbic Acid (Vitamin C) 1000 MG Tablet Take by mouth. Active Calcium-Magnesiu m (Dewayne/Mag Citrate) 250-125 MG Tablet Take by mouth. Active B COMPLEX-C PO Take by mouth. Active other by Other route. A&D Active other by Other route. I Cap Active Multiple Vitamins-Mineral s (HAIR SKIN AND NAILS FORMULA PO) Take by mouth. Active donepezil (ARICEPT) 10 MG Tablet Take 1 Tablet by mouth nightly. 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 Gender Identity Not on file Sexual Orientation Not on file Last Filed Vital Signs Vital Sign Reading Time Taken Comments Blood Pressure 142/78 07/27/2023 10:52 AM CDT Pulse 84 07/27/2023 10:52 AM CDT Temperature 36.5 C (97.7 F) 07/27/2023 10:52 AM CDT Respiratory Rate 18 01/22/2023 11:17 AM CDT Oxygen Saturation 96% 07/27/2023 10:52 AM CDT Inhaled Oxygen Concentration - - Weight 84.8 kg (187 lb) 07/27/2023 10:52 AM CDT Height 185.4 cm (6' 1 ) 07/27/2023 10:52 AM CDT Body Mass Index 24.67 07/27/2023 10:52 AM CDT Plan of Treatment Health Maintenance Due Date Last Done Comments Hepatitis C Virus (HCV) Screening 1940 TdaP Immunization 1940 Pneumococcal Immunization (50+ years) (1 of 1 - PCV) 1988 Zoster Immunization (1 of 2) 1988 Respiratory Syncytial Virus (RSV) Immunization (Adult) (1 - 1-dose 75+ series) 2013 SARS-COV-2 Immunization ( - season) 2023 Influenza Immunization (Season Ended) 2024 02/06/2022, 01/06/2019, 01/06/2018, Additional history exists Hepatitis B Immunization Aged Out No longer eligible based on patient's age to complete this topic Meningococcal Immunization (ACWY) Aged Out No longer eligible based on patient's age to complete this topic Rotavirus Immunization Aged Out No lo nger eligible based on patient's age to complete this topic Insurance MEDICARE C [facility] Care Teams Rubber Mill Operator Relationship Specialty Start Date End Date Nick Yoon MD PCP - General Internal Medicine 03/26/22 Mark Montiel MD [address] [place] [address] Consulting Physician Neurology 01/15/23
--- OUTSIDE RECORDS SUMMARY | 2024-07-26 10:03 | XMS_ITS | Data Portability ---
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 discontinue omeprazole start Pepcid all questions answered with who was present [email or web address] Not available 11/12/2023 23:07:03 03/10/2024 03/10/2024 I did discuss with her the action of donepezil that it is not supposed to cure anything it is just too post a slow progression of his dementia we will continue with all the other medications diagnosis and management of the AFib hyperlipidemia BPH have been discussed follow up in 4 months [email or web address] Not available 03/12/2024 18:40:48 07/14/2024 07/14/2024 We will continue current therapy medications we will continue follow up 4 months [email or web address] Not available 07/16/2024 21:13:12 Plan of Treatment Reminders Order Date Submit Date Provider Last Modified By Organization Details Last Modified Time Details Appointments None recorded. Lab CBC w/ auto diff 2023 024 MOAB [facility], [address] [facility], [address], [place], [address], 4 07:41:45 CMP, serum or plasma 2023 024 BRINA [facility], [address], [address], [place], [address], 4 07:41:44 lipid panel, serum 2023 024 BRINA [facility], [address], [address], [place], [address], 4 07:41:43 CBC w/ auto diff 2023 024 [email or web address] [facility], [address], [address], [place], [address], 4 12:49:41 CMP, serum or plasma 2023 024 BRINA [facility], [address], [address], [place], [address], 4 17:05:33 [facility] panel, [email or web address], [address], [address], [place], [address], 4 12:49:28 CBC w/ auto diff 2023 024 [facility], [address], [address], [place], [address], 4 12:08:04 lipid panel, serum 2023 024 BRINA [facility], [address], [address], [place], [address], 4 20:37:32 CMP, serum or plasma 2023 024 [email or web address] [facility], [address] [facility], [address], [place], [address], 4 12:08:05 Referral urologist referral 2023 024 sherrill Bonilla MD, [address], [address], [place], [address], 4 12:06:54 Procedures None recorded. Surgeries None recorded. Imaging None recorded. Medication Orders Eliquis 5 mg tablet 2023 024 [facility], [address] [place] [address], [address], 4 13:11:37 tamsulosin 0.4 mg capsule 2023 024 [facility], [address] [place] [address], [address], 4 13:11:37 rosuvastat in 20 mg tablet 2023 024 [facility], [address] [place] [address], [address], 4 13:11:37 Pepcid 20 mg tablet 2023 024 [email or web address] #[id number], [address] [place] [address], [id number], 4 15:18:59 Eliquis 5 mg tablet 2023 024 [email or web address] [id number], [address] [place] [address], [id number], 4 17:55:15 rosuvastat in 20 mg tablet 2023 024 [place] [address] [id number], [address], [place], [place], [id number], 17:55:15 Patient TargetsNo targets recorded. Patient Instructions Encounter Date Encounter Id Patient Instructions Last Modified By Organization Details Last Modified Time 07/14/2024 [id number] A healthy lifestyle: care instructions [email or web address] Not available 07/14/2024 13:40:06 Reason for Referral Urologist Referral for Noctu fracisco Referring Physician: Evon Yoon, Internal Medicine, Encounter Date: 07/23/2023 Results Created Date Observation Date Name Description Value Unit Range Abnormal Flag Note LastModifiedBy Organization Detail LastModifiedTime 07/27/19 24 07/27/2023 Compr ehens eliel metab olic 1999 panel - Serum or Plasm a sodium sodiu m Not Available Not Available 07/14/2024 10:53:47 07/27/19 24 07/27/2023 Compr ehens eliel metab olic 1999 panel - Serum or Plasm a potassium potas sium Not Available Not Available 07/14/2024 10:53:47 07/27/19 24 07/27/2023 Compr ehens eliel metab olic 1999 panel - Serum or Plasm a chloride chlor david Not Available Not Available 07/14/2024 10:53:47 07/27/19 24 07/27/2023 Compr ehens eliel metab olic 2000 panel - Serum or Plasm a carbon dioxide carbo n dioxi de Not Available Not Available 07/14/2024 10:53:47 07/27/19 24 07/27/2023 Compr ehens eliel metab olic 2000 panel - Serum or Plasm a anion gap low anion gap Not Available Not Available 07/14/2024 10:53:47 07/27/19 24 07/27/2023 Compr ehens eliel metab olic 2000 panel - Serum or Plasm a glucose high gluco se Not Available Not Available 07/14/2024 10:53:47 07/27/19 24 07/27/2023 Compr ehens eliel metab olic 2000 panel - Serum or Plasm a BUN high BUN Not Available Not Availa ble 07/14/2024 10:53:47 07/27/19 24 07/27/2023 Compr ehens eliel metab olic 2000 panel - Serum or Plasm a creatinine high creat inine Not Available Not Available 07/14/2024 10:53:47 07/27/19 24 07/27/2023 Compr ehens eliel metab olic 1999 panel - Serum or Plasm a GFR 48 GFR Not Available Not Availa ble 07/14/2024 10:53:47 07/27/19 24 07/27/2023 Compr ehens eliel metab olic 1999 panel - Serum or Plasm a alkaline phosphatase alkal ine phosp hatas e Not Available Not Available 07/14/2024 10:53:47 07/27/19 24 07/27/2023 Compr ehens eliel metab olic 1999 panel - Serum or Plasm a alanine aminotransfe rase trey ne amino trans feras e Not Available Not Available 07/14/2024 10:53:47 07/27/19 24 07/27/2023 Compr ehens eliel metab olic 2000 panel - Serum or Plasm a aspartate aminotransfe rase aspar valenzuela amino trans feras e Not Available Not Available 07/14/2024 10:53:47 07/27/19 24 07/27/2023 [facility] - Serum or Plasm a bilirubin, total bilir ubin, total Not Available Not Available 07/14/2024 10:53:47 07/27/19 24 07/27/2023 [facility] 1999 panel - Serum or Plasm a calcium calci um Not Available Not Available 07/14/2024 10:53:47 07/27/19 24 07/27/2023 Compr ehens eliel metab olic 1999 panel - Serum or Plasm a total protein total prote in Not Available Not Available 07/14/2024 10:53:47 07/27/19 24 07/27/2023 Compr ehens eliel metab olic 1999 panel - Serum or Plasm a albumin album in Not Available Not Available 07/14/2024 10:53:47 07/27/19 24 07/27/2023 Compr ehens eliel metab olic 2000 panel - Serum or Plasm a globulin globu gordon Not Available Not Available 07/14/2024 10:53:47 07/27/19 24 07/27/2023 Compr ehens eliel metab olic 2000 panel - Serum or Plasm a A/G ratio A/G ratio Not Available Not Available 07/14/2024 10:53:47 07/27/19 24 07/27/2023 Lipid 1995 panel - Serum or Plasm a cholesterol hernán stero l Not Available Not Available 07/14/2024 10:53:47 07/27/19 24 07/27/2023 Lipid 1996 panel - Serum or Plasm a triglyceride s high trigl yceri lorraine Not Available Not Available 07/14/2024 10:53:47 07/27/19 24 07/27/2023 Lipid 1996 panel - Serum or Plasm a HDL cholesterol low HDL hernán stero l Not Available Not Available 07/14/2024 10:53:47 07/27/19 24 07/27/2023 Lipid 1996 panel - Serum or Plasm a cholesterol in LDL [mass/volume ] in serum or plasma LDL hernán stero l, calcu lated Not Available Not Available 07/14/2024 10:53:47 07/27/19 24 07/27/2023 CBC W Auto Diffe renti al panel - Blood white blood cells white blood cells Not Available Not Available 07/14/2024 10:53:47 07/27/19 24 07/27/2023 CBC W Auto Diffe renti al panel - Blood red blood cells red blood cells Not Available Not Available 07/14/2024 10:53:47 07/27/19 24 07/27/2023 CBC W Auto Diffe renti al panel - Blood hemoglobin hemog lobin Not Available Not Available 07/14/2024 10:53:47 07/27/19 24 07/27/2023 CBC W Auto Diffe renti al panel - Blood hematocrit hemat ocrit Not Available Not Available 07/14/2024 10:53:47 07/27/19 24 07/27/2023 CBC W Auto Diffe renti al panel - Blood mean red cell volume high mean red cell volum e Not Available Not Available 07/14/2024 10:53:47 07/27/19 24 07/27/2023 CBC W Auto Diffe renti al panel - Blood mean red cell hemoglobin high mean red cell hemog lobin Not Available Not Available 07/14/2024 10:53:47 07/27/19 24 07/27/2023 CBC W Auto Diffe renti al panel - Blood mean RBC HGB concentratio n mean RBC HGB jaja ntrat ion Not Available Not Available 07/14/2024 10:53:47 07/27/19 24 07/27/2023 CBC W Auto Diffe renti al panel - Blood red cell distribution width red cell distr ibuti on width Not Available Not Available 07/14/2024 10:53:47 07/27/19 24 07/27/2023 CBC W Auto Diffe renti al panel - Blood platelets plate lets Not Available Not Available 07/14/2024 10:53:47 07/27/19 24 07/27/2023 CBC W Auto Diffe renti al panel - Blood mean platelet volume mean plate let volum e Not Available Not Available 07/14/2024 10:53:47 07/27/19 24 07/27/2023 CBC W Auto Diffe renti al panel - Blood neutrophils high neutr ophil s Not Available Not Available 07/14/2024 10:53:47 07/27/19 24 07/27/2023 CBC W Auto Diffe renti al panel - Blood lymphocytes low lymph ocyte s Not Available Not Available 07/14/2024 10:53:47 07/27/19 24 07/27/2023 CBC W Auto Diffe renti al panel - Blood monocytes monoc ytes Not Available Not Available 07/14/2024 10:53:47 07/27/19 24 07/27/2023 CBC W Auto Diffe renti al panel - Blood eosinophils eosin ophil s Not Available Not Available 07/14/2024 10:53:47 07/27/19 24 07/27/2023 CBC W Auto Diffe renti al panel - Blood basophils basop hils Not Available Not Available 07/14/2024 10:53:47 07/27/19 24 07/27/2023 CBC W Auto Diffe renti al panel - Blood immature granulocytes immat ure granu locyt es Not Available Not Available 07/14/2024 10:53:47 07/27/19 24 07/27/2023 CBC W Auto Diffe renti al panel - Blood neutrophils, absolute count neutr ophil s, absol [place] count Not Available Not Available 07/14/2024 10:53:47 07/27/19 24 07/27/2023 CBC W Auto Diffe renti al panel - Blood lymphocytes, absolute count lymph ocyte s, absol [place] count Not Available Not Available 07/14/2024 10:53:47 07/27/19 24 07/27/2023 CBC W Auto Diffe renti al panel - Blood monocytes, absolute count high monoc ytes, absol [place] count Not Available Not Available 07/14/2024 10:53:47 07/27/19 24 07/27/2023 CBC W Auto Diffe renti al panel - Blood eosinophils, absolute count eosin ophil s, absol [place] count Not Available Not Available 07/14/2024 10:53:47 07/27/19 24 07/27/2023 CBC W Auto Diffe renti al panel - Blood basophils, absolute count basop hils, absol [place] count Not Available Not Available 07/14/2024 10:53:47 07/27/19 24 07/27/2023 CBC W Auto Diffe renti al panel - Blood immature granulocytes ,absolute immat ure granu locyt es,ab solut e Not Available Not Available 07/14/2024 10:53:47 07/27/19 24 07/27/2023 CBC W Auto Diffe renti al panel - Blood nucleated red blood cells nucle ated red blood cells Not Available Not Available 07/14/2024 10:53:47 07/27/19 24 07/27/2023 CBC W Auto Diffe renti al panel - Blood NRBC# NRBC# Not Available Not Availa ble 07/14/2024 10:53:47 11/25/19 24 11/25/2023 Lipid 1996 panel - Serum or Plasm a cholesterol low hernán stero l Not Available Not Available 07/14/2024 10:53:47 11/25/19 24 11/25/2023 Lipid 1995 panel - Serum or Plasm a triglyceride s high trigl yceri lorraine Not Available Not Available 07/14/2024 10:53:47 11/25/19 24 11/25/2023 Lipid 1995 panel - Serum or Plasm a HDL cholesterol low HDL hernán stero l Not Available Not Available 07/14/2024 10:53:47 11/25/19 24 11/25/2023 Lipid 1995 panel - Serum or Plasm a LDL cholesterol, calculated LDL hernán stero l, calcu lated Not Available Not Available 07/14/2024 10:53:47 11/25/19 24 11/25/2023 Compr ehens eliel metab olic 2000 panel - Serum or Plasm a sodium sodiu m Not Available Not Available 07/14/2024 10:53:47 11/25/19 24 11/25/2023 Compr ehens eliel metab olic 2000 panel - Serum or Plasm a potassium potas sium Not Available Not Available 07/14/2024 10:53:47 11/25/19 24 11/25/2023 Compr ehens eliel metab olic 2000 panel - Serum or Plasm a chloride chlor david Not Available Not Available 07/14/2024 10:53:47 11/25/19 24 11/25/2023 Compr ehens eliel metab olic 2000 panel - Serum or Plasm a carbon dioxide carbo n dioxi de Not Available Not Available 07/14/2024 10:53:47 11/25/19 24 11/25/2023 Compr ehens eliel metab olic 2000 panel - Serum or Plasm a anion gap low anion gap Not Available Not Available 07/14/2024 10:53:47 11/25/19 24 11/25/2023 Compr ehens eliel metab olic 2000 panel - Serum or Plasm a glucose high gluco se Not Available Not Available 07/14/2024 10:53:47 11/25/19 24 11/25/2023 Compr ehens leiel metab olic 2000 panel - Serum or Plasm a BUN high BUN Not Available Not Availa ble 07/14/2024 10:53:47 11/25/19 24 11/25/2023 Compr ehens eliel metab olic 2000 panel - Serum or Plasm a creatinine creat inine Not Available Not Available 07/14/2024 10:53:47 11/25/19 24 11/25/2023 Compr ehens eliel metab olic 2000 panel - Serum or Plasm a GFR 55 GFR Not Available Not Availa ble 07/14/2024 10:53:47 11/25/19 24 11/25/2023 Compr ehens eliel metab olic 2000 panel - Serum or Plasm a alkaline phosphatase alkal ine phosp hatas e Not Available Not Available 07/14/2024 10:53:47 11/25/19 24 11/25/2023 [facility] 1999 panel - Serum or Plasm a alanine aminotransfe rase trey ne amino trans feras e Not Available Not Available 07/14/2024 10:53:47 11/25/19 24 11/25/2023 [facility] 2000 panel - Serum or Plasm a aspartate aminotransfe rase aspar valenzuela amino trans feras e Not Available Not Available 07/14/2024 10:53:47 11/25/19 24 11/25/2023 [facility] 2000 panel - Serum or Plasm a bilirubin, total bilir ubin, total Not Available Not Available 07/14/2024 10:53:47 11/25/19 24 11/25/2023 [facility] 2000 panel - Serum or Plasm a calcium calci um Not Available Not Available 07/14/2024 10:53:47 11/25/19 24 11/25/2023 [facility] 1999 panel - Serum or Plasm a total protein total prote in Not Available Not Available 07/14/2024 10:53:47 11/25/19 24 11/25/2023 [facility] 2000 panel - Serum or Plasm a albumin album in Not Available Not Available 07/14/2024 10:53:47 11/25/19 24 11/25/2023 [facility] 2000 panel - Serum or Plasm a globulin globu gordon Not Available Not Available 07/14/2024 10:53:47 11/25/19 24 11/25/2023 [facility] - Serum or Plasm a A/G ratio A/G ratio Not Available Not Available 07/14/2024 10:53:47 11/25/19 24 11/25/2023 CBC W Auto Diffe renti al panel - Blood white blood cells white blood cells Not Available Not Available 07/14/2024 10:53:47 11/25/19 24 11/25/2023 CBC W Auto Diffe renti al panel - Blood red blood cells red blood cells Not Available Not Available 07/14/2024 10:53:47 11/25/19 24 11/25/2023 CBC W Auto Diffe renti al panel - Blood hemoglobin hemog lobin Not Available Not Available 07/14/2024 10:53:47 11/25/19 24 11/25/2023 CBC W Auto Diffe renti al panel - Blood hematocrit hemat ocrit Not Available Not Available 07/14/2024 10:53:47 11/25/19 24 11/25/2023 CBC W Auto Diffe renti al panel - Blood mean red cell volume high mean red cell volum e Not Available Not Available 07/14/2024 10:53:47 11/25/19 24 11/25/2023 CBC W Auto Diffe renti al panel - Blood mean red cell hemoglobin high mean red cell hemog lobin Not Available Not Available 07/14/2024 10:53:47 11/25/19 24 11/25/2023 CBC W Auto Diffe renti al panel - Blood mean RBC HGB concentratio n mean RBC HGB jaja ntrat ion Not Available Not Available 07/14/2024 10:53:47 11/25/19 24 11/25/2023 CBC W Auto Diffe renti al panel - Blood red cell distribution width red cell distr ibuti on width Not Available Not Available 07/14/2024 10:53:47 11/25/19 24 11/25/2023 CBC W Auto Diffe renti al panel - Blood platelets plate lets Not Available Not Available 07/14/2024 10:53:47 11/25/19 24 11/25/2023 CBC W Auto Diffe renti al panel - Blood mean platelet volume mean plate let volum e Not Available Not Available 07/14/2024 10:53:47 11/25/19 24 11/25/2023 CBC W Auto Diffe renti al panel - Blood neutrophils neutr ophil s Not Available Not Available 07/14/2024 10:53:47 11/25/19 24 11/25/2023 CBC W Auto Diffe renti al panel - Blood lymphocytes lymph ocyte s Not Available Not Available 07/14/2024 10:53:47 11/25/19 24 11/25/2023 CBC W Auto Diffe renti al panel - Blood monocytes monoc ytes Not Available Not Available 07/14/2024 10:53:47 11/25/19 24 11/25/2023 CBC W Auto Diffe renti al panel - Blood eosinophils eosin ophil s Not Available Not Available 07/14/2024 10:53:47 11/25/19 24 11/25/2023 CBC W Auto Diffe renti al panel - Blood basophils basop hils Not Available Not Available 07/14/2024 10:53:47 11/25/19 24 11/25/2023 CBC W Auto Diffe renti al panel - Blood immature granulocytes immat ure granu locyt es Not Available Not Available 07/14/2024 10:53:47 11/25/19 24 11/25/2023 CBC W Auto Diffe renti al panel - Blood neutrophils, absolute count neutr ophil s, absol [place] count Not Available Not Available 07/14/2024 10:53:47 11/25/19 24 11/25/2023 CBC W Auto Diffe renti al panel - Blood lymphocytes, absolute count lymph ocyte s, absol [place] count Not Available Not Available 07/14/2024 10:53:47 11/25/19 24 11/25/2023 CBC W Auto Diffe renti al panel - Blood monocytes, absolute count monoc ytes, absol [place] count Not Available Not Available 07/14/2024 10:53:47 11/25/19 24 11/25/2023 CBC W Auto Diffe renti al panel - Blood eosinophils, absolute count eosin ophil s, absol [place] count Not Available Not Available 07/14/2024 10:53:47 11/25/19 24 11/25/2023 CBC W Auto Diffe renti al panel - Blood basophils, absolute count basop hils, absol [place] count Not Available Not Available 07/14/2024 10:53:47 11/25/19 24 11/25/2023 CBC W Auto Diffe renti al panel - Blood immature granulocytes ,absolute immat ure granu locyt es,ab solut e Not Available Not Available 07/14/2024 10:53:47 11/25/19 24 11/25/2023 CBC W Auto Diffe renti al panel - Blood nucleated red blood cells nucle ated red blood cells Not Available Not Available 07/14/2024 10:53:47 11/25/19 24 11/25/2023 CBC W Auto Diffe renti al panel - Blood NRBC# NRBC# Not Available Not Availa ble 07/14/2024 10:53:47 03/15/20 24 03/16/2024 LIPID PANEL cholesterol, total 143 mg/dL 100-19 9 Not Available [facility] ([facility]) [address] [place], [address], 03/16/2024 07:41:43 03/15/20 24 03/16/2024 LIPID PANEL triglyceride s 188 mg/dL 0-149 above high normal Not Available [facility] ([facility]) [address] [place], [address], 03/16/2024 07:41:43 03/15/20 24 03/16/2024 LIPID PANEL HDL cholesterol 35 mg/dL >39 below low normal Not Available [facility] ([facility]) [address] [place], [address], 03/16/2024 07:41:43 03/15/20 24 03/16/2024 LIPID PANEL VLDL cholesterol simi 32 mg/dL 5-40 Not Available [facility] ([facility]) [address] [place], [address], 03/16/2024 07:41:43 03/15/20 24 03/16/2024 LIPID PANEL LDL chol calc ([facility]) 76 mg/dL 0-99 Not Available [facility] [address] [place], [address], 03/16/2024 07:41:43 03/15/20 24 03/16/2024 COMP. METAB OLIC PANEL (14) glucose 102 mg/dL 70-99 above high normal Not Available [facility] ([facility]) [address] [place], [address], 03/16/2024 07:41:44 03/15/20 24 03/16/2024 COMP. METAB OLIC PANEL (14) BUN 27 mg/dL 8-27 Not Available [facility] ([facility]) [address] [place], [address], 03/16/2024 07:41:44 03/15/20 24 03/16/2024 COMP. METAB OLIC PANEL (14) creatinine 1.28 mg/dL 0.76-1 .27 above high normal Not Available [facility] ([facility]) [address] [facility] [place], [address], 03/16/2024 07:41:44 03/15/20 24 03/16/2024 COMP. METAB OLIC PANEL (14) eGFR 55 mL/mi n/1.7 3 >59 below low normal Not Available [facility] ([facility]) [address] [facility] [place], [address], 03/16/2024 07:41:44 03/15/20 24 03/16/2024 COMP. METAB OLIC PANEL (14) BUN/creatini ne ratio 21 - Not Available [facility] ([facility]) [address] [facility] [place], [address], 03/16/2024 07:41:44 03/15/20 24 03/16/2024 COMP. METAB OLIC PANEL (14) sodium 143 mmol/ L 134-14 4 Not Available [facility] ([facility]) [address] [facility] [place], [address], 03/16/2024 07:41:44 03/15/20 24 03/16/2024 COMP. METAB OLIC PANEL (14) potassium 4.9 mmol/ L 3.5-5. 2 Not Available [facility] ([facility]) [address] [facility] [place], [address], 03/16/2024 07:41:44 03/15/20 24 03/16/2024 COMP. METAB OLIC PANEL (14) chloride 105 mmol/ L 96-106 Not Available [facility] ([facility]) [address] [facility] [place], [address], 03/16/2024 07:41:44 03/15/20 24 03/16/2024 COMP. METAB OLIC PANEL (14) carbon dioxide, total 23 mmol/ L 20-29 Not Available [facility] ([facility]) [address] [place], [address], 03/16/2024 07:41:44 03/15/20 24 03/16/2024 COMP. METAB OLIC PANEL (14) calcium 9.1 mg/dL 8.6-10 .2 Not Available [facility] ([facility]) [address] [place], [address], 03/16/2024 07:41:44 03/15/20 24 03/16/2024 COMP. METAB OLIC PANEL (14) protein, total 7.1 g/dL 6.0-8. 5 Not Available [facility] ([facility]) [address] [place], [address], 03/16/2024 07:41:44 03/15/20 24 03/16/2024 COMP. METAB OLIC PANEL (14) albumin 4.4 g/dL 3.7-4. 7 Not Available [facility] ([facility]) [address] [place], [address], 03/16/2024 07:41:44 03/15/20 24 03/16/2024 COMP. METAB OLIC PANEL (14) globulin, total 2.7 g/dL 1.5-4. 5 Not Available [facility] ([facility]) [address] [place], [address], 03/16/2024 07:41:44 03/15/20 24 03/16/2024 COMP. METAB OLIC PANEL (14) bilirubin, total 0.5 mg/dL 0.0-1. 2 Not Available [facility] ([facility]) [address] [place], [address], 03/16/2024 07:41:44 03/15/20 24 03/16/2024 COMP. METAB OLIC PANEL (14) alkaline phosphatase 95 IU/L 44-121 Not Available [facility] ([facility]) [address] [place], [address], 03/16/2024 07:41:44 03/15/20 24 03/16/2024 COMP. METAB OLIC PANEL (14) AST (SGOT) 19 IU/L 0-40 Not Available [facility] ([facility]) [address] [place], [address], 03/16/2024 07:41:44 03/15/20 24 03/16/2024 COMP. METAB OLIC PANEL (14) ALT (SGPT) 14 IU/L 0-44 Not Available [facility] ([facility]) [address] [place], [address], 03/16/2024 07:41:44 03/15/20 24 03/16/2024 CBC WITH DIFFE RENTI AL/PL ATELE T WBC 11.6 x10e3 /uL 3.4-10 .8 above high normal Not Available [facility] ([facility]) [address] [place], [address], 03/16/2024 07:41:45 03/15/20 24 03/16/2024 CBC WITH DIFFE RENTI AL/PL ATELE T RBC 4.18 x10e6 /uL 4.14-5 .80 Not Available [facility] ([facility]) [address] [place], [address], 03/16/2024 07:41:45 03/15/20 24 03/16/2024 CBC WITH DIFFE RENTI AL/PL ATELE T hemoglobin 14.1 g/dL 13.0-1 7.7 Not Available [facility] ([facility]) [address] [place], [address], 03/16/2024 07:41:45 12/10/03/16/2024 CBC WITH DIFFE RENTI AL/PL ATELE T hematocrit 42.7 % 37.5-5 1.0 Not Available [facility] ([facility]) [address] [facility], [place], [address], 03/16/2024 07:41:45 03/15/20 24 03/16/2024 CBC WITH DIFFE RENTI AL/PL ATELE T MCV 102 fL 79-97 above high normal Not Available [facility] ([facility]) [address] [place], [address], 03/16/2024 07:41:45 03/15/20 24 03/16/2024 CBC WITH DIFFE RENTI AL/PL ATELE T MCH 33.7 pg 26.6-3 3.0 above high normal Not Available [facility] ([facility]) [address] [place], [address], 03/16/2024 07:41:45 03/15/20 24 03/16/2024 CBC WITH DIFFE RENTI AL/PL ATELE T MCHC 33.0 g/dL 31.5-3 5.7 Not Available [facility] ([facility]) [address] [place], [address], 03/16/2024 07:41:45 03/15/20 24 03/16/2024 CBC WITH DIFFE RENTI AL/PL ATELE T RDW 12.5 % 11.6-1 5.4 Not Available [facility] ([facility]) [address] [place], [address], 03/16/2024 07:41:45 03/15/20 24 03/16/2024 CBC WITH DIFFE RENTI AL/PL ATELE T platelets 285 x10e3 /uL 150-45 0 Not Available [facility] ([facility]) [address] [place], [address], 03/16/2024 07:41:45 03/15/20 24 03/16/2024 CBC WITH DIFFE RENTI AL/PL ATELE T neutrophils 70 % notest ab. Not Available [facility] ([facility]) [address] [facility], [place], [address], 03/16/2024 07:41:45 03/15/20 24 03/16/2024 CBC WITH DIFFE RENTI AL/PL ATELE T lymphs 14 % notest ab. Not Available [facility] ([facility]) [address] [facility], [place], [address], 03/16/2024 07:41:45 03/15/20 24 03/16/2024 CBC WITH DIFFE RENTI AL/PL ATELE T monocytes 11 % notest ab. Not Available [facility] ([facility]) [address] [facility], [place], [address], 03/16/2024 07:41:45 03/15/20 24 03/16/2024 CBC WITH DIFFE RENTI AL/PL ATELE T eos 3 % notest ab. Not Available [facility] ([facility]) [address] [facility], [place], [address], 03/16/2024 07:41:45 03/15/20 24 03/16/2024 CBC WITH DIFFE RENTI AL/PL ATELE T basos 1 % notest ab. Not Available [facility] ([facility]) [address] [facility], [place], [address], 03/16/2024 07:41:45 03/15/20 24 03/16/2024 CBC WITH DIFFE RENTI AL/PL ATELE T neutrophils (absolute) 8.3 x10e3 /uL 1.4-7. 0 above high normal Not Available [facility] ([facility]) [address] [facility], [place], [address], 03/16/2024 07:41:45 03/15/20 24 03/16/2024 CBC WITH DIFFE RENTI AL/PL ATELE T lymphs (absolute) 1.6 x10e3 /uL 0.7-3. 1 Not Available [facility] ([facility]) [address] [facility], [place], [address], 03/16/2024 07:41:45 03/15/20 24 03/16/2024 CBC WITH DIFFE RENTI AL/PL ATELE T monocytes(ab solute) 1.2 x10e3 /uL 0.1-0. 9 above high normal Not Available [facility] ([facility]) [address] [facility], [place], [address], 03/16/2024 07:41:45 03/15/2003/16/2024 CBC WITH DIFFE RENTI AL/PL ATELE T eos (absolute) 0.4 x10e3 /uL 0.0-0. 4 Not Available [facility] ([facility]) [address] [facility], [place], [address], 03/16/2024 07:41:45 03/15/20 24 03/16/2024 CBC WITH DIFFE RENTI AL/PL ATELE T baso (absolute) 0.1 x10e3 /uL 0.0-0. 2 Not Available [facility] ([facility]) [address] [facility], [place], [address], 03/16/2024 07:41:45 03/15/20 24 03/16/2024 CBC WITH DIFFE RENTI AL/PL ATELE T immature granulocytes 1 % notest ab. Not Available [facility] ([facility]) [address] [facility], [place], [address], 03/16/2024 07:41:45 03/15/20 24 03/16/2024 CBC WITH DIFFE RENTI AL/PL ATELE T immature grans (abs) 0.1 x10e3 /uL 0.0-0. 1 Not Available [facility] ([facility]) [address] [facility], [place], [address], 03/16/2024 07:41:45 04/19/19 25 04/19/2024 CT, brain , w/o contr ast No observ ation record ed. [address], [place], [address], 04/20/2024 09:17:17 04/19/19 25 04/19/2024 CT, cervi simi spine , w/o contr ast No observ ation record ed. [address], [place], [address], 04/20/2024 09:16:36 04/19/19 25 04/19/2024 CT, chest + abdom en + pelvi s, w/ contr ast No observ ation record ed. [address], [place], [address], 04/20/2024 09:15:52 07/27/19 25 07/26/2024 imagi ng/di agnos tic resul t No observ ation record ed. [address], [place], [address], 07/26/2024 10:39:49 07/27/19 25 07/26/2024 imagi ng/di agnos tic resul t No observ ation record ed. [address], [place], [address], 07/26/2024 10:41:08 07/27/19 25 07/26/2024 imagi ng/di agnos tic resul t No observ ation record ed. [address], [place], [address], 07/26/2024 10:48:21 07/27/19 25 07/26/2024 imagi ng/di agnos tic resul t No observ ation record ed. [address], [place], [address], 07/26/2024 10:49:43 Result Notes None recorded. Problems Name Problem SNOMED Code Status Onset Date Resolution Date Notes Provider Name and Address Organization Details Recorded Time Nocturia 833769933 Active 2023 Evon Yoon MD Attn: Jv cid,[address] [facility], [place], [address], [facility] 4 22:23:33 Hyperlipidemia 49092848 Active 2023 Evon Yoon MD Attn: Jv cid,[address] [facility], [place], [address], [facility] 4 22:23:34 Dementia 23161707 Active 2023 Evon Yoon MD Attn: Jv cid,[address] [facility], [place], [address], [facility] 4 22:24:02 Atrial fibrillation 83139144 Active 2023 Evon Yoon MD Attn: Jv cid,[address] [facility], [place], [address], [facility] 4 22:24:10 Problem Notes None recorded. Procedures Surgical History Date Name Laterality Status Provider Name and Address Organization Details Recorded Time Hernia Repair completed Trinidad Christensen MA [facility] 07/23/2023 11:26:38 Imaging Results Imaging Date Name Status LastModified by Organiz ation Details LastModified Time 04/19/2024 CT, brain, w/o contrast completed [address], [address], 04/20/2024 09:17:17 04/19/2024 CT, cervical spine, w/o contrast completed [address], [address], 04/20/2024 09:16:36 04/19/2024 CT, chest + abdomen + pelvis, w/ contrast completed [address], [address], 04/20/2024 09:15:52 07/26/2024 imaging/diagn ostic result active [address], [place], [address], 07/26/2024 10:39:49 07/26/2024 imaging/diagn ostic result active [address], [place], [address], 07/26/2024 10:41:08 07/26/2024 imaging/diagn ostic result active [address], [place], [address], 07/26/2024 10:48:21 07/26/2024 imaging/diagn ostic result active [address], [place], [address], 07/26/2024 10:49:43 Procedure Notes None recorded. Medical Equipment None Reported. Allergies No known drug allergies Medications Name Sig Start Date Stop Date Status Note LastModified by Organization Details LastModified Time quetiapine 25 mg tablet TAKE 1 TABLET BY MOUTH EVERYDAY AT BEDTIME 07/22 completed Not Available Not Available Not Available amoxicillin 500 mg capsule TAKE 1 CAPSULE BY MOUTH THREE TIMES A DAY 07/22 completed Not Available Not Available Not Available donepezil 5 mg tablet TAKE 1 TABLET BY MOUTH NIGHTLY 07/22 completed Not Available Not Available Not Available trazodone 50 mg tablet TAKE 1 TABLET BY MOUTH EVERY DAY AT BEDTIME NEEDED FOR SLEEP 07/22 completed Not Available Not Available Not Available azithromyci n 250 mg tablet 07/14 completed Not Available Not Available Not Available donepezil 10 mg tablet 07/14 completed Not Available Not Available Not Available famotidine 20 mg tablet Take 1 tablet every day by oral route. 02/17 completed Not Available Not Available Not Available tamsulosin 0.4 mg capsule Take 1 capsule every day by oral route at bedtime. 2024 active Not Available Not Available Not Avai lable omeprazole 20 mg capsule,del ayed release take 1 capsule daily active Not Available Not Available No t Available rosuvastati n 20 mg tablet Take 1 tablet every day by oral route. active Not Available Not Available No t Available mirtazapine 7.5 mg tablet TAKE ONE TABLET BY MOUTH NIGHTLY 07/22 completed Not Available Not Available Not Available Eliquis 5 mg tablet Take 1 tablet twice a day by oral route. 2024 active Not Available Not Available Not Avai labrosina Vitals Date Recorded Body weight Body mass index (BMI) Body height Heart rate Body temperature Oxygen saturation Oxygen saturation in Arterial blood by Pulse oximetry Systolic blood pressure Diastolic blood pressure Provider Name and Address Organization Details Last Updated DateTime 4 58930.8 g 25.6 kg/m2 182.88 cm 74 /min 98.2 [degF] 99 % 99 % 126 mm[Hg] 82 mm[Hg] Trinidad Christensen MA [facility] 4 11:31:57 Date Recorded Body height Body mass index (BMI) Body weight Heart rate Oxygen saturation Oxygen saturation in Arterial blood by Pulse oximetry Systolic blood pressure Diastolic blood pressure Provider Name and Address Organization Details Last Updated DateTime 4 182.88 cm 25.4 kg/m2 19464.9 2 g 70 /min 99 % 99 % 124 mm[Hg] 78 mm[Hg] Britt Whitman MA [facility] 4 15:24:26 Date Recorded Body height Body mass index (BMI) Body weight Heart rate Oxygen saturation Oxygen saturation in Arterial blood by Pulse oximetry Systolic blood pressure Diastolic blood pressure Provider Name and Address Organization Details Last Updated DateTime 4 182.88 cm 25.1 kg/m2 95674.8 7 g 73 /min 98 % 98 % 126 mm[Hg] 62 mm[Hg] Shelley Sutherland MA [facility] 4 11:09:16 Date Recorded Body height Body mass index (BMI) Body weight Heart rate Oxygen saturation Oxygen saturation in Arterial blood by Pulse oximetry Systolic blood pressure Diastolic blood pressure Provider Name and Address Organization Details Last Updated DateTime 5 182.88 cm 23.5 kg/m2 44603.2 8 g 81 /min 100 % 100 % 114 mm[Hg] 74 mm[Hg] Kelly Wren MA [facility] 5 11:13:14 Social History Question Answer Notes LastModified by Organizat ion Details LastModified Time Tobacco Smoking Status Former Smoker Trinidad Christensen MA [facility], [place] - [facility] 07/23/2023 11:27:12 Do You Have An Advance Directive? Yes Information not available 11/12/2023 What Is Your Level Of Alcohol Consumption? None Information not available 07/23/2023 Are You Blind Or Do You Have Difficulty Seeing? No Information not available 07/23/2023 In The 14 Days Before Symptom Onset, Have You Had Close Contact With A Laboratory-confir med COVID-19 While That Case Was Ill? No Information not available 03/10/2024 In The 14 Days Before Symptom Onset, Have You Had Close Contact With A Person Who Is Under Investigation For COVID-19 While That Person Was Ill? No Information not available 03/10/2024 Have You Been To An Area Known To Be High Risk For COVID-19? No Information not available 03/10/2024 Are You Currently Employed? No Information not available 11/12/2023 Are You Deaf Or Do You Have Serious Difficulty Hearing? Yes Bad Hearing Information not available 07/23/2023 What Type Of Diet Are You Following? REGULAR Information not available 11/12/2023 Are There Any Guns Present In Your Home? No Information not available 03/10/2024 What Was The Date Of Your Most Recent Tobacco Screening? 07/14/2024 [email or web address] Information not available 07/14/2024 What Is Your Relationship Status? Information not available 07/23/2023 Do You Use Your Seat Belt Or Car Seat Routinely? Yes Information not available 11/12/2023 Do You Have Smoke And Carbon Monoxide Detectors In Your Home? Yes Information not available 11/12/2023 How Much Tobacco Do You Smoke? 0.5 PPD Information not available 07/23/2023 Do You Feel Stressed (tense, Restless, Nervous, Or Anxious, Or Unable To Sleep At Night)? [id number] Information not available 07/23/2023 Do You Use Any Illicit Or Recreational Drugs? No Information not available 11/12/2023 Do You Use Sunscreen Routinely? Yes Information not available 03/10/2024 Has Tobacco Cessation Counseling Been Provided? No Information not available 11/12/2023 Do You Or Have You Ever Used Any Other Forms Of Tobacco Or Nicotine? No Information not available 11/12/2023 Sex: Unknown Functional Status Question Answer Note LastModified by Organization D etails LastModified Time Are you able to care for yourself? Yes Information n ot available 07/23/2023 Mental Status None recorded. Family History Relationship Description Onset Age of this Age Resolved Age Notes LastModified by Organization Details LastModified Time Father Cerebrovascu lar accident [email or web address] Not available 11:28:03 Father Heart disease [email or web address] Not available 2023 11:28:07 Father Hypertensive disorder [email or web address] Not available 2023 11:28:12 Sister Cerebrovascu lar accident [email or web address] Not available 11:28:03 Mother Malignant neoplasm of skin melano ma apaytonma Not available 07/23/2023 11:28:38 Medical History Condition Response Skin Problems Y High Cholesterol Y Immunizations Vaccine Type Date Status Note Provider Nam e and Address Organization Details Recorded Time Influenza, high-dose, quadrivalent, PF 01/06/2019 completed PEGGY [place], [place] - [facility] 03/10/2024 11:09:20 Influenza, high-dose, quadrivalent, PF 02/06/2022 completed Shelley Sutherland [place], [place] [facility] 03/10/2024 11:09:20 Influenza, high-dose, trivalent, PF 01/06/2018 completed Shelley Suther[place], [place] [facility] 03/10/2024 11:09:20 Influenza, high-dose, trivalent, PF 01/20/2016 completed PE[place] [facility] 03/10/2024 11:09:20 Influenza, high-dose, trivalent, PF 02/08/2013 completed PEGG[place] [facility] 03/10/2024 11:09:20 Influenza, high-dose, trivalent, PF 02/20/2017 completed PEGGY [place], [place] [facility] 03/10/2024 11:09:21 Influenza, split virus, trivalent, PF 02/15/2014 completed Shelley Sutherland MA [facility] 03/10/2024 11:09:21 Past Encounters Encounter ID Performer Location Encounter Start Date Encounter Closed Date Diagnosis/Indication Diagnosis SNOMED-CT Code Diagnosis ICD10 Code Diagnosis Note [id number] Evon Yoon MD [facility] [place] [address] [place] [id number] 07/23/2023 11:02:26 07/23/2023 12:16:28 Nocturia 465704757 R35.1 Hyperlipidemia 67642613 E78.5 Long-term drug therapy 551076917 Z79.899 Dementia 00424425 F03.92 Atrial fibrillation 4943 6004 I48.91 [id number] Evon Yoon MD [facility] [place] [address] [place] [id number] 11/12/2023 14:42:58 11/12/2023 16:25:31 Hyperlipidemia 27363569 E78.5 Long-term drug therapy 762216601 Z79.899 Atrial fibrillation 4943 6004 I48.91 Gastroesop hageal reflux disease without esophagitis 166024656 K21.9 Dementia 39929593 F03.92 [id number] Evon Yoon MD [facility] [place] [address] [place] [id number] 03/10/2024 10:36:45 03/10/2024 12:01:04 Body mass index 25-29 - overweight 826375622 Z68.25 Hyperlipidemia 06544903 E78.5 Atrial fibrillation 4943 6004 I48.91 Renewal of prescription 190572116 Z76.0 Dementia 20702117 F03.92 [id number] Evon Yoon MD [facility] [place] [address] [place] [id number] 07/14/2024 10:42:28 07/14/2024 11:55:30 Body mass index 20-24 - normal 768885117 Z68.23 Overweight 162152829 E66 .3 Hyperlipidemia 91772896 E78.5 Dementia 08661363 F03.92 Atrial fibrillation 4943 6004 I48.91 Health Concerns Section Related Observation LastModified by Organization Detai ls LastModified Time None Recorded Concern Status LastModified by Organization Details LastModified Time None Recorded Advance Directives Directive Y: Payers Encounter Date Sequence Insurance Name Policy Number Policy Simpson Covered Member ID Simpson Member ID Guarantor Name 07/23/2023 1 [facility] (MEDICARE REPLACEMENT/A DVANTAGE - PPO) [id number] Petar O Marquez [id number] Petar O Marquez 11/12/2023 1 [facility] (MEDICARE REPLACEMENT/A DVANTAGE - PPO) [id number] Petar O Marquez [id number] [place] O Marquez 03/10/2024 1 [facility] (MEDICARE REPLACEMENT/A DVANTAGE - PPO) [id number] [place] O Marquez [id number] [place] O Marquez 07/14/2024 1 [facility] (MEDICARE REPLACEMENT/A DVANTAGE - PPO) [id number] Petar O Marquez [id number] Petar O Marquez Notes Date Note Type Note Provider Name and Address Organization Details Recorded Time 07/23/2023 text/html 82-year-old leo e male comes in with his he has a history of hyperlipidemia dementia GERD BPH atrial fibrillation and ongoing memory deterioration since he had COVID has had some hallucinations at times they are seeing the neurologist tomorrow he is also developed 4-5 times a night nocturia despite tamsulosin. Evon Yoon MD Attn: [address] [place], [address], [facility] 07/23/2023 22:24:32 11/12/2023 text/html 82-year-old leo e male comes in with his he has a history of hyperlipidemia dementia GERD BPH atrial fibrillation and ongoing memory deterioration since he had COVID has had some hallucinations at times they are seeing the neurologist tomorrow he is also developed 4-5 times a night nocturia despite tamsulosin. Evon Yoon MD Attn: [address] [place], [address], [facility] 11/12/2023 23:07:23 03/10/2024 text/html he is in with hi s there has not been any behavioral outbursts he is taking his medication for BPH and having no side effects we still have given him rosuvastatin he is trying to watch his diet best that he can omeprazole handling GERD issues. stopped donepezil states she does not see a difference Evon Yoon MD Attn: [address] [facility], [place], [address], [facility] 03/12/2024 18:41:15 07/14/2024 text/html Atrial fibrillat ion there has not been any chest pain or palpitations no heart failure symptoms. GERD has been doing fine taking the rosuvastatin watching diet for dyslipidemia his BPH has been stable there has been no behavioral disturbances the quit giving him did not [place] felt that he was having side effects from it Evon Yoon MD Attn: [address] [facility], [place], [address], [facility] 07/16/2024 21:13:37
[2024-07-26] MEDS: SODIUM CHLORIDE 0.9% IV 500 ML 999 ML IV CONT ×2 (10:11→11:18)
--- NOTE | 2024-07-26 10:27 | PC.NURSE ---
Care Coordination called for assist for home care. RN spoke with Jade
[2024-07-26] MEDS: AZITHROMYCIN 500 MG/NS 250 ML 500 MG/250 ML BAG 250 MG IVPB (11:15)
--- NOTE | 2024-07-26 11:25 | PC.NURSE ---
pt repositioned assessed for incontinence. Pt dry. Pt has had periods of yelling during stay in ER, easily redirected.
[2024-07-26 11:44] LABS: Influenza A QL RT-PCR Negative (Negative); Influenza B QL RT-PCR Negative (Negative); RSV RNA, RT-PCR Negative (Negative); SARS-CoV-2 RNA PCR Negative (Negative)
--- NOTE | 2024-07-26 13:51 | ADMGEN ---
This patient, Petar Marquez, was admitted to [facility] Surg Room 306-02. Patient/family oriented to hospital policies and general routines including ID bracelet, bed and alarms, visiting hours, pain management, procedures, bathroom and other care routines, personal items, smoking policy, room service/diet, and visiting hours. Information on how to activate the Rapid Response Team has been discussed. Patient/Family are encouraged to report perceived risks to care and to ask questions if they do not understand what they are told or what they should do. Report from Jyoti in ER.
--- NOTE | 2024-07-26 17:15 | PM.IMHP ---
H&P: HPI History of Present Illness Date/Time: 07/26/24 17:15 Chief Complaint: Weakness Narrative: ER-HPI Narrative: This is a 83 year old male that presents to the ER for generalized weakness. Family report multiple falls this last week and need for lift assists. Patient reports a mild headache. Otherwise has no complaints. patient is quite confused unable to provide any history or ROS, patient with weakness and is found to have pneumonia most likely CAP, being treated with ceftriaxone and and Zithromax, patient is has elevated BUN and creatinine due to dehydration 2/2 poor PO intake, will gently hydrated the patient. will have PT/OT evaluate the patient, will benefit going acute rehab. will monitor. Review of Systems Review of Systems: ROS unobtainable: Yes unobtainable due to medical condition [facility] Past Medical History Medical History (Updated 07/26/24 @ 15:03 by Lita Perez PA-C) Atrial fibrillation Impacted cerumen of both ears Dementia Family History Family History (Updated 07/26/24 @ 14:00 by Tammy Shell RN) Father Hypertension Sibling COPD (chronic obstructive pulmonary disease) Cancer Cerebrovascular accident Heart attack COVID Social History Social History Social History: Caffeine-coffee/soda Smoking status: Former smoker Tobacco type: cigarettes Alcohol intake: never Substance use: never Lack of Transportation: No Lack of Food: Never True Current Housing: I Have Housing Concerned About Future Housing: No Difficulty Paying Gas/Electric Bills: No Difficulty Paying for Meds: No Currently Unemployed: No Education: Trade/Vocational Certificate Difficulty w/ Childcare or Family Care: No Living arrangements: with family Occupation/Education: retired Gender identity (if verbalized by the patient): Male Spiritual care concerns: No Meds Home Medications and Allergies Home Medications ?Medication ?Instructions ?Recorded ?Confirmed ?Type omeprazole 20 mg capsule,delayed 20 mg PO HS 11/26/20 07/26/24 History release rosuvastatin 20 mg tablet 20 mg PO HS 11/26/20 07/26/24 History apixaban 5 mg tablet (Eliquis) 5 mg PO Q12HR 30 days #60 tabs 12/12/20 07/26/24 Rx tamsulosin 0.4 mg capsule 0.4 mg PO HS 09/09/22 07/26/24 History multivitamin (Daily Multi-Vitamin 1 tablet PO DAILY 07/26/24 07/26/24 History tablet) Allergies Allergy/AdvReac Type Severity Reaction Status Date / Time adhesive tape Allergy Itching Verified 07/26/24 14:13 Vital Signs Vital Signs - 24 hr 07/26/24 08:39 07/26/24 09:01 07/26/24 09:38 Temperature 36.5 C 36.6 C 36.6 C Pulse Rate 73 74 72 Respiratory Rate 16 18 15 Blood Pressure 180/93 H 168/98 H 173/81 H Pulse Oximetry 100 100 98 Oxygen Delivery Room Air 07/26/24 10:01 07/26/24 11:00 07/26/24 12:39 Temperature 36.6 C 36.7 C Pulse Rate 79 69 87 Respiratory Rate 21 H 12 18 Blood Pressure 180/90 H 192/98 H 180/80 H Pulse Oximetry 98 98 100 Oxygen Delivery 07/26/24 14:00 Temperature 36.6 C Pulse Rate 74 Respiratory Rate 18 Blood Pressure 157/78 H Pulse Oximetry 98 Oxygen Delivery Exam Narrative: Patient is comfortable, NAD HEENT: eyes are clear and none icteric LUNGS:CTA HEART: RR S1S2 ABD: BS+, Soft and nontender Lower extremities: no edema SKIN: nonjaundiced Neuro: grossly intact. H&P: Results Labs Labs: Short CBC 07/26/24 Range/Units 09:10 WBC 8.4 (4.5-10.0) K/mm3 Hgb 13.8 L (14.0-18.0) g/dL Hct 43.0 (42.0-52.0) % Plt Count 204 (150-375) k/mm3 BMP 07/26/24 09:10 Sodium 142 Potassium 4.0 Chloride 104 Carbon Dioxide 26 BUN 39 H Creatinine 1.48 H Glucose 98 Calcium 9.0 Liver Function 07/26/24 Range/Units 09:10 Total Bilirubin 1.1 (0.2-1.3) mg/dL AST 24 (17-59) U/L ALT 19 (6-50) U/L Alkaline Phosphatase 107 (38-126) U/L Albumin 4.2 (3.5-5.1) g/dL Urine 07/26/24 Range/Units 09:10 Urine Color Yellow (Yellow) Urine Appearance Clear (Clear) Urine pH 7.0 (5.0-9.0) Ur Specific [place] 1.019 (1.001-1.035) Urine Protein 1+ H (Negative) mg/dL Urine Glucose (UA) Negative (Negative) mg/dL Assessment and Plan Assessment and plan (1) Dementia: Code(s): F03.90 - Unspecified dementia, unspecified severity, without behavioral disturbance, psychotic disturbance, mood disturbance, and anxiety Status: Acute (2) Pneumonia: Qualifiers: Laterality: right Lung location: lower lobe of lung Pneumonia type: due to unspecified organism Qualified Code(s): J18.9 - Pneumonia, unspecified organism Code(s): J18.9 - Pneumonia, unspecified organism Status: Acute (3) Generalized weakness: Code(s): R53.1 - Weakness Status: Acute (4) Acute kidney injury: Code(s): N17.9 - Acute kidney failure, unspecified Status: Acute Plan patient is quite confused unable to provide any history or ROS, patient with weakness and is found to have pneumonia most likely CAP, being treated with ceftriaxone and and Zithromax, patient is has elevated BUN and creatinine due to dehydration 2/2 poor PO intake, will gently hydrated the patient. will have PT/OT evaluate the patient, will benefit going acute rehab. will monitor. Quality VTE Prophylaxis VTE prophylaxis: pharmacologic ordered Hospitalist MIPS Advance Care Plan I have confirmed that the patient's Advanced Care Plan is present, code status is documented, or surrogate decision maker is listed in patient medical record.: Yes Medication Reconciliation I have utilized all available resources to obtain, update and review the patients current medications (includes all prescriptions, OTC, herbals, cannabis, and nutritional supplements).: Yes
[2024-07-26] MEDS: hydrALAZINE HCL 20 MG/ML VIAL 10 MG IV PUSH (20:37)
[2024-07-26] MEDS: PANTOPRAZOLE 40 MG TABLET PO (20:39)
[2024-07-26] MEDS: ROSUVASTATIN 20 MG TABLET PO (20:39)
[2024-07-26] MEDS: APIXABAN 5 MG TABLET PO (20:39)
[2024-07-26] MEDS: TAMSULOSIN HCL 0.4 MG CAPSULE PO (20:39)
[2024-07-27] VITALS: BP 148/67; PULSE 76; RESP 16; TEMP 36.7; O2SAT 96
[2024-07-27 04:00] VITALS: BP 178/90; PULSE 82; RESP 14; TEMP 36.7; O2SAT 96
[2024-07-27 06:32] LABS: Hematocrit 44.2 % (42.0-52.0); Hemoglobin 14.3 g/dL (14.0-18.0); Mean Corpuscular HGB Conc 32.4 g/dl (32-36); Mean Corpuscular Hemoglobin 32.5 pg (26-34); Mean Corpuscular Volume 100.5 fl (80-100); Mean Platelet Volume 10.2 fl (7.4-10.4); Platelet Count Result 226 k/mm3 (150-375); Red Cell Distribution Width 13.1 % (11.5-14.5); White Blood Count 11.7 K/mm3 (4.5-10.0)
[2024-07-27 06:45] LABS: Anion Gap 11 mmol/L (4-12); Blood Urea Nitrogen 25 mg/dL (9-20); Calcium 9.1 mg/dL (8.4-10.2); Carbon Dioxide 24 mmol/L (22-30); Chloride 105 mmol/L (98-107); Estimated CRCL calculation 40 ml/min; Estimated Glomerular Filt Rate 53; Glucose 110 mg/dL (65-110); Magnesium 2.2 mg/dL (1.6-2.3); Potassium 3.9 mmol/L (3.4-5.0); Sodium 140 mmol/L (137-145)
[2024-07-27] MEDS: MULTIVITAMINS THERAPEUTIC TAB (*BKC) 1 TABLET PO (09:28)
[2024-07-27] MEDS: APIXABAN 5 MG TABLET PO ×2 (09:28→20:25)
[2024-07-27] MEDS: AZITHROMYCIN 500 MG/NS 250 ML 500 MG/250 ML BAG 250 MG IVPB (10:29)
--- NOTE | 2024-07-27 11:51 | P.PNIM_ITS ---
Progress Note: A&P Assessment and Plan (1) Dementia: Code(s): F03.90 - Unspecified dementia, unspecified severity, without behavioral disturbance, psychotic disturbance, mood disturbance, and anxiety Status: Acute Assessment and Plan: * Reorient as needed. * Sitter at bedside. (2) Pneumonia: Qualifiers: Laterality: right Lung location: lower lobe of lung Pneumonia type: due to unspecified organism Qualified Code(s): J18.9 - Pneumonia, unspecified organism Code(s): J18.9 - Pneumonia, unspecified organism Status: Acute Assessment and Plan: * WBC 11.7. * Azithromycin 500 mg IVPB daily and Ceftriaxone 1 gram IVPB daily. * Duoneb PRN. * Blood cultures no growth to date. (3) Generalized weakness: Code(s): R53.1 - Weakness Status: Acute Assessment and Plan: * PT/OT (4) Acute kidney injury: Code(s): N17.9 - Acute kidney failure, unspecified Status: Acute Assessment and Plan: * Creatinine improved from 1.48>1.28. * Encourage oral intake. (5) Hypertension: Code(s): I10 - Essential (primary) hypertension Status: Acute Assessment and Plan: * Hydralazine 10 mg ivp q 8 PRN. Subjective Date/time seen: 07/27/24 11:51 Interval history: Patient sitting up in bed. Patient denies chest pain, palpitations, shortness of breath, headache, or dizziness. and sitter at bedside. Review of Systems Review of Systems: All systems reviewed & are unremarkable except as noted in HPI and below Exam Const: General: comfortable and no acute distress Resp: Effort & Inspection: normal respiratory effort Auscultation: clear to auscultation bilaterally Cardio: Rate: regular rate Rhythm: regular rhythm Extrem: General: no pedal edema Psych: Affect: normal affect Other: Oriented to name, that he is in a hospital, and 2024. Objective Data Vital Signs Vital Signs: Vital Signs - 24 hr 07/26/24 12:39 07/26/24 14:00 07/26/24 20:00 Temperature 98.0 F 97.8 F 97.6 F Pulse Rate 87 74 75 Respiratory Rate 18 18 14 Blood Pressure 180/80 H 157/78 H 210/108 H Pulse Oximetry 100 98 99 Oxygen Delivery 07/26/24 21:09 07/27/24 00:00 07/27/24 04:00 Temperature 98.1 F 98.1 F Pulse Rate 76 82 Respiratory Rate 16 14 Blood Pressure 152/78 H 148/67 H 178/90 H Pulse Oximetry 96 96 Oxygen Delivery 07/27/24 08:00 Temperature Pulse Rate Respiratory Rate Blood Pressure Pulse Oximetry Oxygen Delivery Room Air Intake/Output Intake/Output: Intake & Output 07/24/24 07/25/24 07/26/24 07/27/24 23:59 23:59 23:59 23:59 Intake Total 2160 824 Output Total 245 400 Balance 1915 424 Meds/Results Medications: Active Medications Generic Name Dose Route Start Last Admin Trade Name Freq PRN Reason Stop Dose Admin Apixaban 5 mg 07/26/24 21:00 07/27/24 09:28 Apixaban 5 Mg Tablet PO 5 mg Q12HR KIESHA Administration Ceftriaxone Sodium 1 gm in 50 mls @ 100 mls/hr 07/27/24 10:00 07/27/24 09:58 Rocephin 1 Gm/Ns 50 Ml IVPB Infused Q24H KIESHA Infusion Azithromycin 500 mg in 250 mls @ 250 mls/hr 07/27/24 11:00 07/27/24 10:29 Zithromax IVPB 250 mls/hr Q24H KIESHA Administration Multivitamins Therapeutic 1 tablet 07/27/24 09:00 07/27/24 09:28 Multivitamins Therapeutic Tab (*Bkc) PO 1 tablet DAILY KIESHA Administration Pantoprazole Sodium 40 mg 07/26/24 21:00 07/26/24 20:39 Pantoprazole 40 Mg Tablet PO 40 mg HS KIESHA Administration Rosuvastatin Calcium 20 mg 07/26/24 21:00 07/26/24 20:39 Rosuvastatin 20 Mg Tablet PO 20 mg HS KIESHA Administration Tamsulosin HCl 0.4 mg 07/26/24 21:00 07/26/24 20:39 Tamsulosin Hcl 0.4 Mg Capsule PO 0.4 mg HS KIESHA Administration Radiology Results: ITS Impressions Head CT 07/26/24 09:31 IMPRESSION: No acute intracranial findings. Cervical Spine CT 07/26/24 09:36 IMPRESSION: No acute osseous abnormality cervical spine. Chest X-Ray 07/26/24 09:36 Impression: 1: Possible acute focal pneumonia right lung base versus chronic scarring. 2: Coarse chronic bilateral pleural calcifications, consistent with prior asbestos exposure. Pelvis X-Ray 07/26/24 09:43 IMPRESSION: Lucency at the junction of the right acetabulum with the superior pubic ramus. Possibility of fracture cannot be excluded. CT is advised. Pelvis CT 07/26/24 10:38 IMPRESSION: 1. Degenerative skeletal changes in the lower lumbar spine and pelvis as detailed above. No acute osseous abnormality. Labs Labs: Laboratory Results - last 24 hr 07/27/24 06:01 WBC 11.7 H RBC 4.40 L Hgb 14.3 Hct 44.2 MCV 100.5 H MCH 32.5 MCHC 32.4 RDW 13.1 Plt Count 226 MPV 10.2 Sodium 140 Potassium 3.9 Chloride 105 Carbon Dioxide 24 Anion Gap 11 BUN 25 H D Creatinine 1.28 Estim Creat Clear Calc 40 Estimated GFR 53 L Glucose 110 Calcium 9.1 Magnesium 2.2 Quality VTE Prophylaxis VTE prophylaxis: pharmacologic ordered
[2024-07-27 13:51] VITALS: BP 149/73; PULSE 67; RESP 18; TEMP 36.8; O2SAT 96
[2024-07-27 13:59] VITALS: BP 143/102
[2024-07-27 14:15] VITALS: BP 180/100
[2024-07-27] MEDS: hydrALAZINE HCL 20 MG/ML VIAL 10 MG IV PUSH (14:33)
[2024-07-27] MEDS: PANTOPRAZOLE 40 MG TABLET PO (20:25)
[2024-07-27] MEDS: ROSUVASTATIN 20 MG TABLET PO (20:25)
[2024-07-27] MEDS: TAMSULOSIN HCL 0.4 MG CAPSULE PO (20:25)
[2024-07-27 22:00] VITALS: BP 138/70; PULSE 79; RESP 12; TEMP 36.9; O2SAT 97
[2024-07-28] VITALS (7 sets, daily range): BP systolic 106–158; BP diastolic 59–92; PULSE 69–84; RESP 16–18; TEMP 36.2–36.6; O2SAT 97–99
--- NOTE | 2024-07-28 | ECHO_ITS ---
Patient Info Name: Petar Marquez Age: 83 years : 1940 Gender: Male Ht: 72 in Wt: 166 lbs BSA: 1.95 m2 HR: 65 bpm BP: 106 / 71 mmHg Technical Quality: Fair Exam Date: 07/28/2024 11:30 AM Exam Location: Echo Lab Patient Status: Inpatient Admit Date: 07/26/2024 Staff Ordering Physician: Natasha Cheek APRN Category Development Analyst: Jeanette Coppola RDCS Attending Provider: Eve Rubalcava MD Referring Physician: Ham CHARLES; Exam Type: CA echo doppler color flow Study Info Indications - falls, vagal, changes in LOC Complete two-dimensional, color flow and Doppler transthoracic echocardiogram is performed. Summary 1. Complete two-dimensional, color flow and Doppler transthoracic echocardiogram is performed. 2. There is normal biventricular size and systolic function. 3. The mitral valve leaflets are thickened but opens well. There is mild mitral regurgitation. Left Ventricle The left ventricle is normal in size and systolic function. There is concentric left ventricular remodeling. The left ventricular ejection fraction is visually estimated to be 60-65%. Right Ventricle The right ventricle is normal in size and systolic function. Left Atria The left atrium is normal size. Right Atria The right atrium is normal size. Atrial Septum Color Doppler did not suggest any significant shunt. Aortic Valve The aortic valve is trileaflet and sclerotic but opens well. There is mild aortic regurgitation. Pulmonic Valve The pulmonic valve is not visualized. There is no color Doppler evidence of pulmonic valve regurgitation. Mitral Valve The mitral valve leaflets are thickened but opens well. There is mild mitral regurgitation. Tricuspid Valve The tricuspid valve is normal. There is mild tricuspid regurgitation. Pericardium/Pleural Pericardium is normal in appearance with no evidence for significant pericardial effusion. Inferior Vena Cava Normal inferior vena cava with >50% collapse upon inspiration consistent with normal right atrial pressure, 3 mmHg. Aorta The aortic root at the level of the sinus Valsalva measures 3.3 cm in diameter. Left Ventricular Outflow Tract Name Value Normal LVOT 2D LVOT Diameter 2.1 cm LVOT Doppler LVOT Peak Gradient 2 mmHg LVOT Mean Gradient 1 mmHg LVOT VTI 17 cm LVOT VTI/AV VTI Ratio 0.5 LVOT Stroke Volume 57 ml LVOT CO 11.8 l/min LVOT CI 6.0 l/min/m2 Pulmonic Valve Name Value Normal PV Doppler PV Peak Gradient 4 mmHg Mitral Valve Name Value Normal MV Doppler MV Decel Geary 183 cm/s2 MV PHT 86 ms MV Area (PHT) 2.6 cm2 4.0-5.0 MV Diastolic Function MV E Peak Velocity 54 cm/s MV A Peak Velocity 79 cm/s MV E/A 0.7 MV Decel Time 295 ms MV Annular TDI MV E/e' (Septal) 10.0 <=8.0 MV E/e' (Lateral) 6.7 <=8.0 MV E/e' (Average) 8.3 Tricuspid Valve Name Value Normal TV Regurgitation Doppler TR Peak Velocity 234 cm/s TR Peak Gradient 21 mmHg Estimated PAP/RSVP RA Pressure 3 mmHg <=5 PA Systolic Pressure 25 mmHg <36 RV Systolic Pressure 25 mmHg <36 Aorta Name Value Normal Ascending Aorta Ao Root Diameter (MM) 3.7 cm Ao Root Diam Index (MM) 1.9 cm/m2 Aortic Valve Name Value Normal AV Doppler AV Peak Velocity 138 cm/s AV Peak Gradient 8 mmHg AV Mean Gradient 5 mmHg AV VTI 34 cm AV Area (Cont Eq VTI) 1.7 cm2 >=3.0 AV Area (Cont Eq Hammad) 1.8 cm2 AV Regurgitation 2D LVOT Area 3.4 cm2 AV Regurgitation Doppler AR Decel Time 4,070 ms AR Decel Geary 101 cm/s2 AR PHT 1,180 ms Ventricles Name Value Normal LV Dimensions 2D/MM IVS Diastolic Thickness (2D) 1.1 cm 0.6-1.0 LVID Diastole (2D) 4.0 cm 4.2-5.8 LVIW Diastolic Thickness (2D) 1.1 cm 0.6-1.0 LVID Systole (2D) 2.9 cm 2.5-4.0 LVOT Diameter 2.1 cm LV Mass (2D Cubed) 155.24 g 88.00-224.00 LV Mass Index (2D Cubed) 79 g/m2 49-115 Relative Wall Thickness (2D) 0.56 LV Fractional Shortening/Ejection Fraction 2D/MM LV Fractional Shortening (2D) 27 % 25-43 LV EF (2D Teicholz) 54 % 52-72 LV Diastolic Volume (4C MOD) 102 ml LV EF (4C MOD) 69 % LV Diastolic Volume (2C MOD) 85 ml LV EF (2C MOD) 51 % LV Diastolic Volume (BP MOD) 97 ml 62-150 LV Diastolic Volume Index (BP MOD) 50 ml/m2 34-74 LV Systolic Volume (BP MOD) 37 ml 21-61 LV Systolic Volume Index (BP MOD) 19 ml/m2 11-31 LV EF (BP MOD) 62 % 52-72 LV Diastolic Length (4C) 7.5 cm LV Systolic Length (4C) 6.6 cm LV Stroke Volume (4C MOD) 71 ml Atria Name Value Normal LA Dimensions LA Volume (4C A-L) 51 ml LA Volume (BP A-L) 48 ml RA Dimensions RA Area (4C) 18.6 cm2 <=18.0 Report Signatures
[2024-07-28 06:40] LABS: Hematocrit 42.5 % (42.0-52.0); Hemoglobin 14.1 g/dL (14.0-18.0); Mean Corpuscular HGB Conc 33.2 g/dl (32-36); Mean Corpuscular Hemoglobin 32.9 pg (26-34); Mean Corpuscular Volume 99.3 fl (80-100); Mean Platelet Volume 10.1 fl (7.4-10.4); Platelet Count Result 206 k/mm3 (150-375); Red Blood Count 4.28 M/mm3 (4.6-6.20); Red Cell Distribution Width 13.3 % (11.5-14.5); White Blood Count 8.8 K/mm3 (4.5-10.0)
[2024-07-28 06:54] LABS: Anion Gap 7 mmol/L (4-12); Blood Urea Nitrogen 25 mg/dL (9-20); Carbon Dioxide 27 mmol/L (22-30); Chloride 106 mmol/L (98-107); Estimated CRCL calculation 44 ml/min; Estimated Glomerular Filt Rate 60; Glucose 100 mg/dL (65-110); Magnesium 2.4 mg/dL (1.6-2.3); Potassium 3.7 mmol/L (3.4-5.0); Sodium 140 mmol/L (137-145)
[2024-07-28] MEDS: MULTIVITAMINS THERAPEUTIC TAB (*BKC) 1 TABLET PO (09:03)
[2024-07-28] MEDS: APIXABAN 5 MG TABLET PO ×2 (09:03→20:36)
[2024-07-28] MEDS: AZITHROMYCIN 500 MG/NS 250 ML 500 MG/250 ML BAG 250 MG IVPB (10:03)
--- NOTE | 2024-07-28 10:25 | PC.NURSE ---
Up to bathroom with JUANY Lilly. Became unresponsive on toilet. Witnessed by JUANY Lilly. Rapid Response called. Arousable to sternal rub. Disoriented and weak. Transferred with assist of 2 to the chair, then returned to bed. Blood sugar 154. Natasha Miranda APRN at bedside. Vital signs completed. Bed alarm activated. Sitter at bedside.
[2024-07-28 10:31] LABS: Glucose Point of Care 154 mg/dl (65-105)
--- NOTE | 2024-07-28 10:35 | P.PNIM_ITS ---
Progress Note: A&P Assessment and Plan (1) Dementia: Code(s): F03.90 - Unspecified dementia, unspecified severity, without behavioral disturbance, psychotic disturbance, mood disturbance, and anxiety Status: Acute Assessment and Plan: * Reorient as needed. * Sitter at bedside. (2) Pneumonia: Qualifiers: Laterality: right Lung location: lower lobe of lung Pneumonia type: due to unspecified organism Qualified Code(s): J18.9 - Pneumonia, unspecified organism Code(s): J18.9 - Pneumonia, unspecified organism Status: Acute Assessment and Plan: * WBC 8.8, improving. * Azithromycin 500 mg IVPB daily and Ceftriaxone 1 gram IVPB daily. * Duoneb PRN. * Blood cultures no growth to date. (3) Neurologic abnormality: Code(s): R29.818 - Other symptoms and signs involving the nervous system Status: Acute Assessment and Plan: * Episode this morning during therapy. * Patient reported to have gotten walker wheel caught on IV pole while turning to sit on commode in the bathroom. Patient needing to urinate stiffened up and when sat down went backwards with a blank stare but did not loose consciousness, legs where raised and patient started communicating. Blood pressure 106/71, HR 84, Sa02 97% RA. Blood sugar 154. * Trop <0.012. * Carotid dopplers: IMPRESSION: 1. <50% stenosis in the right internal carotid artery. 2. <50% stenosis in the left internal carotid artery. * Echocardiogram: Summary 1. Complete two-dimensional, color flow and Doppler transthoracic echocardiogram is performed. 2. There is normal biventricular size and systolic function. 3. The mitral valve leaflets are thickened but opens well. There is mild mitral regurgitation. Left Ventricle The left ventricle is normal in size and systolic function. There is concentric left ventricular remodeling. The left ventricular ejection fraction is visually estimated to be 60-65%. * Place patient on telemetry. (4) Generalized weakness: Code(s): R53.1 - Weakness Status: Acute Assessment and Plan: * PT/OT (5) Acute kidney injury: Code(s): N17.9 - Acute kidney failure, unspecified Status: Acute Assessment and Plan: * Creatinine improved from 1.48>1.28>1.16. * Encourage oral intake. (6) Hypertension: Code(s): I10 - Essential (primary) hypertension Status: Acute Assessment and Plan: * Blood pressure improved today, currently 125/59. * Hydralazine 10 mg ivp q 8 PRN. Subjective Date/time seen: 07/28/24 10:35 Interval history: Patient had episode this morning while doing therapy. Patient reported to have gotten walker wheel caught on IV pole while turning to sit on commode in the bathroom. Patient needing to urinate stiffened up and when sat down went backwards with a blank stare but did not loose consciousness, legs where raised and patient started communicating. Patient denies chest pain, palpitations, headache, dizziness, nausea, or vomiting. Review of Systems Review of Systems: All systems reviewed & are unremarkable except as noted in HPI and below Exam Const: General: comfortable and no acute distress Resp: Effort & Inspection: normal respiratory effort Auscultation: diminished lung sounds Cardio: Rate: regular rate Rhythm: regular rhythm GI: GI Palp: Yes Soft to palpation Auscultation: normal bowel sounds Neuro: Speech: normal speech Extrem: General: no pedal edema Psych: Affect: normal affect Other: Ubly to name and that he is in the hospital. Objective Data Vital Signs Vital Signs: Vital Signs - 24 hr 07/27/24 13:36 07/27/24 13:51 07/27/24 13:59 Temperature 98.2 F Pulse Rate 67 Respiratory Rate 18 Blood Pressure 149/73 H 143/102 H Pulse Oximetry 96 Oxygen Delivery Room Air 07/27/24 14:15 07/27/24 22:00 07/28/24 06:07 Temperature 98.4 F Pulse Rate 79 Respiratory Rate 12 Blood Pressure 180/100 H 138/70 152/68 H Pulse Oximetry 97 Oxygen Delivery 07/28/24 08:00 Temperature Pulse Rate Respiratory Rate Blood Pressure Pulse Oximetry Oxygen Delivery Room Air Intake/Output Intake/Output: Intake & Output 07/25/24 07/26/24 07/27/24 07/28/24 23:59 23:59 23:59 23:59 Intake Total 2160 2344 240 Output Total 245 400 Balance 19144 240 Meds/Results Medications: Active Medications Generic Name Dose Route Start Last Admin Trade Name Freq PRN Reason Stop Dose Admin Albuterol/Ipratropium 3 ml 07/27/24 17:04 Ipratropium 0.5 Mg/Albuterol Sulfate 2.5 Mg Ampul.Neb 3 Ml INHALATION Q6HRT PRN Shortness Of Breath Or Wheezing Apixaban 5 mg 07/26/24 21:00 07/28/24 09:03 Apixaban 5 Mg Tablet PO 5 mg Q12HR KIESHA Administration Hydralazine HCl 10 mg 07/27/24 16:59 Hydralazine Hcl 20 Mg/Ml Vial IV PUSH Q8H PRN Blood Pressure - High Ceftriaxone Sodium 1 gm in 50 mls @ 100 mls/hr 07/27/24 10:00 07/28/24 09:03 Rocephin 1 Gm/Ns 50 Ml IVPB 100 mls/hr Q24H KIESHA Administration Azithromycin 500 mg in 250 mls @ 250 mls/hr 07/27/24 11:00 07/28/24 10:03 Zithromax IVPB 250 mls/hr Q24H KIESHA Administration Multivitamins Therapeutic 1 tablet 07/27/24 09:00 07/28/24 09:03 Multivitamins Therapeutic Tab (*Bkc) PO 1 tablet DAILY KIESHA Administration Pantoprazole Sodium 40 mg 07/26/24 21:00 07/27/24 20:25 Pantoprazole 40 Mg Tablet PO 40 mg HS KIESHA Administration Perflutren Lipid Microsphere 0 ml 07/28/24 10:34 Perflutren Lipid Microspheres 1.5 Ml Vial Diluted To 10 Ml Total Volume IV PUSH 07/31/24 10:34 ONCE PRN adequate visualization Protocol Rosuvastatin Calcium 20 mg 07/26/24 21:00 07/27/24 20:25 Rosuvastatin 20 Mg Tablet PO 20 mg HS KIESHA Administration Tamsulosin HCl 0.4 mg 07/26/24 21:00 07/27/24 20:25 Tamsulosin Hcl 0.4 Mg Capsule PO 0.4 mg HS KIESHA Administration Radiology Results: ITS Impressions Head CT 07/26/24 09:31 IMPRESSION: No acute intracranial findings. Cervical Spine CT 07/26/24 09:36 IMPRESSION: No acute osseous abnormality cervical spine. Chest X-Ray 07/26/24 09:36 Impression: 1: Possible acute focal pneumonia right lung base versus chronic scarring. 2: Coarse chronic bilateral pleural calcifications, consistent with prior asbestos exposure. Pelvis X-Ray 07/26/24 09:43 IMPRESSION: Lucency at the junction of the right acetabulum with the superior pubic ramus. Possibility of fracture cannot be excluded. CT is advised. Pelvis CT 07/26/24 10:38 IMPRESSION: 1. Degenerative skeletal changes in the lower lumbar spine and pelvis as detailed above. No acute osseous abnormality. Labs Labs: Laboratory Results - last 24 hr 07/28/24 07/28/24 06:02 10:27 WBC 8.8 RBC 4.28 L Hgb 14.1 Hct 42.5 MCV 99.3 MCH 32.9 MCHC 33.2 RDW 13.3 Plt Count 206 MPV 10.1 Sodium 140 Potassium 3.7 Chloride 106 Carbon Dioxide 27 Anion Gap 7 BUN 25 H Creatinine 1.16 Estim Creat Clear Calc 44 Estimated GFR 60 Glucose 100 POC Capillary Glucose 154 H Calcium 9.0 Magnesium 2.4 H Quality VTE Prophylaxis VTE prophylaxis: pharmacologic ordered
--- NOTE | 2024-07-28 10:55 | PC.NURSE ---
Update given per telephone to johnathan Graf.
[2024-07-28 11:08] LABS: Troponin I < 0.012 ng/mL (0.000-0.034)
--- NOTE | 2024-07-28 11:35 | PCPTNOTE ---
The patient treatment was not able to be completed on 07/28/2024 due to patient having rapid response called this morning while working with OT. Will plan to continue treatment per plan of care.
--- NOTE | 2024-07-28 13:37 | PC.NURSE ---
To ultrasound per hospital bed for Carotid Dopplers.
--- NOTE | 2024-07-28 14:25 | PC.NURSE ---
Returned to room from ultrasound per hospital bed.
[2024-07-28 17:11] LABS: Troponin I < 0.012 ng/mL (0.000-0.034)
[2024-07-28] MEDS: ROSUVASTATIN 20 MG TABLET PO (20:36)
[2024-07-28] MEDS: PANTOPRAZOLE 40 MG TABLET PO (20:36)
[2024-07-28] MEDS: TAMSULOSIN HCL 0.4 MG CAPSULE PO (20:36)
[2024-07-29] VITALS (11 sets, daily range): BP systolic 76–190; BP diastolic 44–97; PULSE 61–96; RESP 16–18; TEMP 36.3–36.6; O2SAT 94–99
[2024-07-29 06:24] LABS: Hematocrit 42.2 % (42.0-52.0); Hemoglobin 13.8 g/dL (14.0-18.0); Mean Corpuscular HGB Conc 32.7 g/dl (32-36); Mean Corpuscular Hemoglobin 32.9 pg (26-34); Mean Corpuscular Volume 100.7 fl (80-100); Mean Platelet Volume 10.1 fl (7.4-10.4); Platelet Count Result 214 k/mm3 (150-375); Red Blood Count 4.19 M/mm3 (4.6-6.20); Red Cell Distribution Width 13.3 % (11.5-14.5)
[2024-07-29 06:34] LABS: Anion Gap 9 mmol/L (4-12); Blood Urea Nitrogen 27 mg/dL (9-20); Calcium 8.7 mg/dL (8.4-10.2); Carbon Dioxide 23 mmol/L (22-30); Chloride 105 mmol/L (98-107); Estimated CRCL calculation 46 ml/min; Estimated Glomerular Filt Rate > 60; Glucose 93 mg/dL (65-110); Magnesium 2.3 mg/dL (1.6-2.3); Potassium 3.8 mmol/L (3.4-5.0); Sodium 137 mmol/L (137-145)
[2024-07-29] MEDS: MULTIVITAMINS THERAPEUTIC TAB (*BKC) 1 TABLET PO (08:33)
[2024-07-29] MEDS: APIXABAN 5 MG TABLET PO ×2 (08:33→20:35)
[2024-07-29] MEDS: AZITHROMYCIN 500 MG/NS 250 ML 500 MG/250 ML BAG 250 MG IVPB (11:32)
--- NOTE | 2024-07-29 12:05 | P.PNIM_ITS ---
Progress Note: A&P Assessment and Plan (1) Dementia: Code(s): F03.90 - Unspecified dementia, unspecified severity, without behavioral disturbance, psychotic disturbance, mood disturbance, and anxiety Status: Acute Assessment and Plan: * Reorient as needed. * Sitter at bedside. (2) Pneumonia: Qualifiers: Laterality: right Lung location: lower lobe of lung Pneumonia type: due to unspecified organism Qualified Code(s): J18.9 - Pneumonia, unspecified organism Code(s): J18.9 - Pneumonia, unspecified organism Status: Acute Assessment and Plan: * WBC 9.0 today. * Azithromycin 500 mg IVPB daily and Ceftriaxone 1 gram IVPB daily. * Duoneb PRN. * Blood cultures no growth to date. (3) Neurologic abnormality: Code(s): R29.818 - Other symptoms and signs involving the nervous system Status: Acute Assessment and Plan: * Episode this morning during therapy. * Patient reported to have gotten walker wheel caught on IV pole while turning to sit on commode in the bathroom. Patient needing to urinate stiffened up and when sat down went backwards with a blank stare but did not loose consciousness, legs where raised and patient started communicating. Blood pressure 106/71, HR 84, Sa02 97% RA. Blood sugar 154. * Trop <0.012. * Carotid dopplers: IMPRESSION: 1. <50% stenosis in the right internal carotid artery. 2. <50% stenosis in the left internal carotid artery. * Echocardiogram: Summary 1. Complete two-dimensional, color flow and Doppler transthoracic echocardiogram is performed. 2. There is normal biventricular size and systolic function. 3. The mitral valve leaflets are thickened but opens well. There is mild mitral regurgitation. Left Ventricle The left ventricle is normal in size and systolic function. There is concentric left ventricular remodeling. The left ventricular ejection fraction is visually estimated to be 60-65%. * Place patient on telemetry. (4) Generalized weakness: Code(s): R53.1 - Weakness Status: Acute Assessment and Plan: * PT/OT (5) Acute kidney injury: Code(s): N17.9 - Acute kidney failure, unspecified Status: Acute Assessment and Plan: * Creatinine improved from 1.48>1.28>1.16>1.12. * Encourage oral intake. (6) Hypertension: Code(s): I10 - Essential (primary) hypertension Status: Acute Assessment and Plan: * Orthostatics today: Lying 173/84, Sitting 107/68, and standing 76/44. Add Lito Herman. NS @ 75 ml/hr. * Hydralazine 10 mg ivp q 8 PRN. Subjective Date/time seen: 07/29/24 12:05 Interval history: Patient sitting up in chair. Patient denies chest pain, palpitations, headache, shortness of breath, or dizziness. Review of Systems Review of Systems: All systems reviewed & are unremarkable except as noted in HPI and below Exam Const: General: comfortable and no acute distress Resp: Effort & Inspection: normal respiratory effort Auscultation: diminished lung sounds Cardio: Rate: regular rate Rhythm: regular rhythm GI: GI Palp: Yes Soft to palpation Auscultation: normal bowel sounds Neuro: Speech: normal speech Extrem: General: no pedal edema Psych: Mental Status: mental status grossly normal Affect: normal affect Objective Data Vital Signs Vital Signs: Vital Signs - 24 hr 07/28/24 14:10 07/28/24 16:33 07/28/24 20:00 Temperature 97.2 F L Pulse Rate 69 81 74 Respiratory Rate 18 Blood Pressure 125/59 L Pulse Oximetry 98 Oxygen Delivery 07/28/24 21:19 07/29/24 00:00 07/29/24 04:00 Temperature 97.9 F Pulse Rate 76 72 61 Respiratory Rate 16 Blood Pressure 158/92 H Pulse Oximetry 99 Oxygen Delivery 07/29/24 06:00 07/29/24 08:35 Temperature 97.8 F Pulse Rate 80 80 Respiratory Rate 16 16 Blood Pressure 150/89 H Pulse Oximetry 98 98 Oxygen Delivery Room Air Intake/Output Intake/Output: Intake & Output 07/26/24 07/27/24 07/28/24 07/29/24 23:59 23:59 23:59 23:59 Intake Total 2160 2344 1200 50 Output Total 245 400 400 300 Balance 1914 1944 800 -250 Meds/Results Medications: Active Medications Generic Name Dose Route Start Last Admin Trade Name Freq PRN Reason Stop Dose Admin Albuterol/Ipratropium 3 ml 07/27/24 17:04 Ipratropium 0.5 Mg/Albuterol Sulfate 2.5 Mg Ampul.Neb 3 Ml INHALATION Q6HRT PRN Shortness Of Breath Or Wheezing Apixaban 5 mg 07/26/24 21:00 07/29/24 08:33 Apixaban 5 Mg Tablet PO 5 mg Q12HR KIESHA Administration Hydralazine HCl 10 mg 07/27/24 16:59 Hydralazine Hcl 20 Mg/Ml Vial IV PUSH Q8H PRN Blood Pressure - High Ceftriaxone Sodium 1 gm in 50 mls @ 100 mls/hr 07/27/24 10:00 07/29/24 09:36 Rocephin 1 Gm/Ns 50 Ml IVPB Infused Q24H KIESHA Infusion Azithromycin 500 mg in 250 mls @ 250 mls/hr 07/27/24 11:00 07/29/24 11:32 Zithromax IVPB 250 mls/hr Q24H KIESHA Administration Multivitamins Therapeutic 1 tablet 07/27/24 09:00 07/29/24 08:33 Multivitamins Therapeutic Tab (*Bkc) PO 1 tablet DAILY KIESHA Administration Pantoprazole Sodium 40 mg 07/26/24 21:00 07/28/24 20:36 Pantoprazole 40 Mg Tablet PO 40 mg HS KIESHA Administration Perflutren Lipid Microsphere 0 ml 07/28/24 10:34 Perflutren Lipid Microspheres 1.5 Ml Vial Diluted To 10 Ml Total Volume IV PUSH 07/31/24 10:34 ONCE PRN adequate visualization Protocol Rosuvastatin Calcium 20 mg 07/26/24 21:00 07/28/24 20:36 Rosuvastatin 20 Mg Tablet PO 20 mg HS KIESHA Administration Tamsulosin HCl 0.4 mg 07/26/24 21:00 07/28/24 20:36 Tamsulosin Hcl 0.4 Mg Capsule PO 0.4 mg HS KIESHA Administration Radiology Results: ITS Impressions Head CT 07/26/24 09:31 IMPRESSION: No acute intracranial findings. Cervical Spine CT 07/26/24 09:36 IMPRESSION: No acute osseous abnormality cervical spine. Chest X-Ray 07/26/24 09:36 Impression: 1: Possible acute focal pneumonia right lung base versus chronic scarring. 2: Coarse chronic bilateral pleural calcifications, consistent with prior asbestos exposure. Pelvis X-Ray 07/26/24 09:43 IMPRESSION: Lucency at the junction of the right acetabulum with the superior pubic ramus. Possibility of fracture cannot be excluded. CT is advised. Pelvis CT 07/26/24 10:38 IMPRESSION: 1. Degenerative skeletal changes in the lower lumbar spine and pelvis as detailed above. No acute osseous abnormality. Carotid Doppler Study 07/28/24 14:29 IMPRESSION: 1. <50% stenosis in the right internal carotid artery. 2. <50% stenosis in the left internal carotid artery. Labs Labs: Laboratory Results - last 24 hr 07/28/24 07/29/24 16:21 05:42 WBC 9.0 RBC 4.19 L Hgb 13.8 L Hct 42.2 MCV 100.7 H MCH 32.9 MCHC 32.7 RDW 13.3 Plt Count 214 MPV 10.1 Sodium 137 Potassium 3.8 Chloride 105 Carbon Dioxide 23 Anion Gap 9 BUN 27 H Creatinine 1.12 Estim Creat Clear Calc 46 Estimated GFR > 60 Glucose 93 Calcium 8.7 Magnesium 2.3 Troponin I < 0.012 Quality VTE Prophylaxis VTE prophylaxis: pharmacologic ordered
--- NOTE | 2024-07-29 14:04 | PCPTNOTE ---
Attempted to see patient for PT this afternoon. Patient oriented x 1 and had difficulty comprehending instruction to participate in PT then refused to complete bed mobility and sit up on edge of bed becoming slightly agitated. Began BP monitoring for orthostatic BP and achieved supine BP:172/86 but unable to complete BP in sitting and standing. RN notified.
[2024-07-29 15:24] LABS: NT Pro B Type Natriuretic Pept 260 pg/mL (19.9-100)
[2024-07-29] MEDS: PANTOPRAZOLE 40 MG TABLET PO (20:35)
[2024-07-29] MEDS: ROSUVASTATIN 20 MG TABLET PO (20:35)
[2024-07-29] MEDS: TAMSULOSIN HCL 0.4 MG CAPSULE PO (20:35)
[2024-07-29] MEDS: SODIUM CHLORIDE 0.9% IV 1,000 ML 75 ML IV CONT (20:37)
[2024-07-30] VITALS (13 sets, daily range): BP systolic 118–183; BP diastolic 43–93; PULSE 66–81; RESP 16–18; TEMP 36.4–36.8; O2SAT 97–100
[2024-07-30 05:28] LABS: Hematocrit 40.1 % (42.0-52.0); Hemoglobin 13.2 g/dL (14.0-18.0); Mean Corpuscular HGB Conc 32.9 g/dl (32-36); Mean Corpuscular Hemoglobin 33.1 pg (26-34); Mean Corpuscular Volume 100.5 fl (80-100); Mean Platelet Volume 10.1 fl (7.4-10.4); Platelet Count Result 203 k/mm3 (150-375); Red Blood Count 3.99 M/mm3 (4.6-6.20); Red Cell Distribution Width 13.1 % (11.5-14.5); White Blood Count 10.2 K/mm3 (4.5-10.0)
[2024-07-30 05:42] LABS: Anion Gap 7 mmol/L (4-12); Blood Urea Nitrogen 27 mg/dL (9-20); Calcium 8.6 mg/dL (8.4-10.2); Carbon Dioxide 26 mmol/L (22-30); Chloride 106 mmol/L (98-107); Estimated CRCL calculation 45 ml/min; Estimated Glomerular Filt Rate 60; Glucose 108 mg/dL (65-110); Magnesium 2.3 mg/dL (1.6-2.3); Potassium 3.7 mmol/L (3.4-5.0); Sodium 139 mmol/L (137-145)
[2024-07-30] MEDS: hydrALAZINE HCL 20 MG/ML VIAL 10 MG IV PUSH (06:23)
[2024-07-30] MEDS: ACETAMINOPHEN 325 MG TABLET 650 MG PO (08:23)
[2024-07-30] MEDS: AZITHROMYCIN 250 MG TABLET 500 MG PO (08:23)
[2024-07-30] MEDS: AMOXICILLIN/CLAVULANATE K 875-125 MG TAB 1 TABLET PO ×2 (08:24→20:21)
[2024-07-30] MEDS: MULTIVITAMINS THERAPEUTIC TAB (*BKC) 1 TABLET PO (08:24)
[2024-07-30] MEDS: APIXABAN 5 MG TABLET PO ×2 (08:24→20:21)
--- NOTE | 2024-07-30 11:37 | P.PNIM_ITS ---
Progress Note: A&P Assessment and Plan (1) Dementia: Code(s): F03.90 - Unspecified dementia, unspecified severity, without behavioral disturbance, psychotic disturbance, mood disturbance, and anxiety Status: Acute Assessment and Plan: * Reorient as needed. * Sitter at bedside. (2) Pneumonia: Qualifiers: Laterality: right Lung location: lower lobe of lung Pneumonia type: due to unspecified organism Qualified Code(s): J18.9 - Pneumonia, unspecified organism Code(s): J18.9 - Pneumonia, unspecified organism Status: Acute Assessment and Plan: * WBC 10.2 today. * Completed Azithromycin. Currently receiving Augmentin 875-125 mg 1 tablet q 12. * Duoneb PRN. * Blood cultures no growth to date. (3) Neurologic abnormality: Code(s): R29.818 - Other symptoms and signs involving the nervous system Status: Acute Assessment and Plan: * Episode this morning during therapy. * 07/28/24- Patient reported to have gotten walker wheel caught on IV pole while turning to sit on commode in the bathroom. Patient needing to urinate stiffened up and when sat down went backwards with a blank stare but did not loose consciousness, legs where raised and patient started communicating. Blood pressure 106/71, HR 84, Sa02 97% RA. Blood sugar 154. * Trop <0.012. * Carotid dopplers: IMPRESSION: 1. <50% stenosis in the right internal carotid artery. 2. <50% stenosis in the left internal carotid artery. * Echocardiogram: Summary 1. Complete two-dimensional, color flow and Doppler transthoracic echocardiogram is performed. 2. There is normal biventricular size and systolic function. 3. The mitral valve leaflets are thickened but opens well. There is mild mitral regurgitation. Left Ventricle The left ventricle is normal in size and systolic function. There is concentric left ventricular remodeling. The left ventricular ejection fraction is visually estimated to be 60-65%. * Telemetry- SR 88. (4) Generalized weakness: Code(s): R53.1 - Weakness Status: Acute Assessment and Plan: * PT/OT (5) Acute kidney injury: Code(s): N17.9 - Acute kidney failure, unspecified Status: Acute Assessment and Plan: * Creatinine improved from 1.48>1.28>1.16>1.12>1.15. * Encourage oral intake. (6) Hypertension: Code(s): I10 - Essential (primary) hypertension Status: Acute Assessment and Plan: * Orthostatics today: Lying 156/68 HR 78, Sitting 118/67 HR 79, and standing 129/43 HR 81. Lito Hose. Decrease NS @ 50 ml/hr. * Orthostatics yesterday: Lying 173/84, Sitting 107/68, and standing 76/44. Lito hose added. NS @ 75 ml/hr. * Hydralazine 10 mg ivp q 8 PRN. Subjective Date/time seen: 07/30/24 11:37 Interval history: Patient sitting up in bed. Patient a little tearful when first entered room. Patient denies chest pain, palpitations, headache, dizziness, nausea, or vom iting. Review of Systems Review of Systems: All systems reviewed & are unremarkable except as noted in HPI and below Exam Const: General: no acute distress Resp: Effort & Inspection: normal respiratory effort Auscultation: diminished lung sounds Cardio: Rate: regular rate Rhythm: regular rhythm GI: GI Palp: Yes Soft to palpation Auscultation: normal bowel sounds Neuro: Speech: normal speech Psych: Other: Oriented to person and place. Objective Data Vital Signs Vital Signs: Vital Signs - 24 hr 07/29/24 12:00 07/29/24 14:00 07/29/24 14:20 Temperature 97.4 F L Pulse Rate 65 96 Respiratory Rate 18 Blood Pressure 94/76 L 173/84 H Pulse Oximetry 94 Oxygen Delivery 07/29/24 14:20 07/29/24 14:20 07/29/24 16:00 Temperature Pulse Rate 72 Respiratory Rate Blood Pressure 107/68 76/44 L Pulse Oximetry Oxygen Delivery 07/29/24 20:40 07/29/24 20:53 07/30/24 00:00 Temperature Pulse Rate 94 81 77 Respiratory Rate 18 Blood Pressure 190/97 H Pulse Oximetry 99 Oxygen Delivery 07/30/24 04:00 07/30/24 06:00 07/30/24 06:50 Temperature 97.9 F Pulse Rate 66 75 Respiratory Rate 16 Blood Pressure 183/93 H 133/64 Pulse Oximetry 98 Oxygen Delivery 07/30/24 08:28 Temperature Pulse Rate Respiratory Rate Blood Pressure Pulse Oximetry Oxygen Delivery Room Air Intake/Output Intake/Output: Intake & Output 07/27/24 07/28/24 07/29/24 07/30/24 23:59 23:59 23:59 23:59 Intake Total 2344 1200 527 360 Output Total 400 400 700 Balance 1944 800 -173 360 Meds/Results Medications: Active Medications Generic Name Dose Route Start Last Admin Trade Name Freq PRN Reason Stop Dose Admin Acetaminophen 650 mg 07/30/24 07:34 07/30/24 08:23 Acetaminophen 325 Mg Tablet PO 650 mg Q4H PRN Administration Pain Albuterol/Ipratropium 3 ml 07/27/24 17:04 Ipratropium 0.5 Mg/Albuterol Sulfate 2.5 Mg Ampul.Neb 3 Ml INHALATION Q6HRT PRN Shortness Of Breath Or Wheezing Amoxicillin/Clavulanate Potassium 1 tablet 07/30/24 09:00 07/30/24 08:24 Amoxicillin/Clavulanate K 875-125 Mg Tab PO 08/01/24 21:01 1 tablet Q12HR KIESHA Administration Apixaban 5 mg 07/26/24 21:00 07/30/24 08:24 Apixaban 5 Mg Tablet PO 5 mg Q12HR KIESHA Administration Hydralazine HCl 10 mg 07/27/24 16:59 07/30/24 06:23 Hydralazine Hcl 20 Mg/Ml Vial IV PUSH 10 mg Q8H PRN Administration Blood Pressure - High Sodium Chloride 1,000 mls @ 75 mls/hr 07/29/24 16:35 07/30/24 08:27 Normal Saline Iv IV CONT Not Given .[id number] KIESHA Multivitamins Therapeutic 1 tablet 07/27/24 09:00 07/30/24 08:24 Multivitamins Therapeutic Tab (*Bkc) PO 1 tablet DAILY KIESHA Administration Pantoprazole Sodium 40 mg 07/26/24 21:00 07/29/24 20:35 Pantoprazole 40 Mg Tablet PO 40 mg HS KIESHA Administration Perflutren Lipid Microsphere 0 ml 07/28/24 10:34 Perflutren Lipid Microspheres 1.5 Ml Vial Diluted To 10 Ml Total Volume IV PUSH 07/31/24 10:34 ONCE PRN adequate visualization Protocol Rosuvastatin Calcium 20 mg 07/26/24 21:00 07/29/24 20:35 Rosuvastatin 20 Mg Tablet PO 20 mg HS KIESHA Administration Tamsulosin HCl 0.4 mg 07/26/24 21:00 07/29/24 20:35 Tamsulosin Hcl 0.4 Mg Capsule PO 0.4 mg HS KIESHA Administration Radiology Results: ITS Impressions Head CT 07/26/24 09:31 IMPRESSION: No acute intracranial findings. Cervical Spine CT 07/26/24 09:36 IMPRESSION: No acute osseous abnormality cervical spine. Chest X-Ray 07/26/24 09:36 Impression: 1: Possible acute focal pneumonia right lung base versus chronic scarring. 2: Coarse chronic bilateral pleural calcifications, consistent with prior asbestos exposure. Pelvis X-Ray 07/26/24 09:43 IMPRESSION: Lucency at the junction of the right acetabulum with the superior pubic ramus. Possibility of fracture cannot be excluded. CT is advised. Pelvis CT 07/26/24 10:38 IMPRESSION: 1. Degenerative skeletal changes in the lower lumbar spine and pelvis as detailed above. No acute osseous abnormality. Carotid Doppler Study 07/28/24 14:29 IMPRESSION: 1. <50% stenosis in the right internal carotid artery. 2. <50% stenosis in the left internal carotid artery. Labs Labs: Laboratory Results - last 24 hr 07/29/24 07/30/24 05:32 05:06 WBC 10.2 H RBC 3.99 L Hgb 13.2 L Hct 40.1 L MCV 100.5 H MCH 33.1 MCHC 32.9 RDW 13.1 Plt Count 203 MPV 10.1 Sodium 139 Potassium 3.7 Chloride 106 Carbon Dioxide 26 Anion Gap 7 BUN 27 H Creatinine 1.15 Estim Creat Clear Calc 45 Estimated GFR 60 Glucose 108 Calcium 8.6 Magnesium 2.3 NT-Pro-B Natriuret Pep 260 H Quality VTE Prophylaxis VTE prophylaxis: pharmacologic ordered
--- NOTE | 2024-07-30 12:28 | PCCCNOTE ---
[facility] auth received for Petar Marquez 38 for Agnes Del Rio start date 07/30 to next review date of 08/02. Auth number not available [facility] ref# [id number] and care advocate for [facility] is Nico Schneider.
[2024-07-30] MEDS: SODIUM CHLORIDE 0.9% IV 1,000 ML 75 ML IV CONT (16:52)
[2024-07-30] MEDS: ROSUVASTATIN 20 MG TABLET PO (20:21)
[2024-07-30] MEDS: PANTOPRAZOLE 40 MG TABLET PO (20:21)
[2024-07-30] MEDS: TAMSULOSIN HCL 0.4 MG CAPSULE PO (20:21)
[2024-07-31] VITALS (11 sets, daily range): BP systolic 92–195; BP diastolic 47–91; PULSE 65–82; RESP 16–20; TEMP 36.2–36.3; O2SAT 97–100
[2024-07-31 06:09] LABS: Hematocrit 41.3 % (42.0-52.0); Hemoglobin 13.6 g/dL (14.0-18.0); Mean Corpuscular HGB Conc 32.9 g/dl (32-36); Mean Corpuscular Hemoglobin 33.1 pg (26-34); Mean Corpuscular Volume 100.5 fl (80-100); Mean Platelet Volume 10.2 fl (7.4-10.4); Platelet Count Result 216 k/mm3 (150-375); Red Blood Count 4.11 M/mm3 (4.6-6.20); Red Cell Distribution Width 13.2 % (11.5-14.5)
[2024-07-31 07:23] LABS: Anion Gap 5 mmol/L (4-12); Blood Urea Nitrogen 22 mg/dL (9-20); Calcium 8.8 mg/dL (8.4-10.2); Carbon Dioxide 29 mmol/L (22-30); Chloride 106 mmol/L (98-107); Estimated CRCL calculation 49 ml/min; Estimated Glomerular Filt Rate > 60; Glucose 98 mg/dL (65-110); Magnesium 2.4 mg/dL (1.6-2.3); Potassium 4.3 mmol/L (3.4-5.0); Sodium 140 mmol/L (137-145)
[2024-07-31] MEDS: APIXABAN 5 MG TABLET PO ×2 (08:19→20:32)
[2024-07-31] MEDS: AMOXICILLIN/CLAVULANATE K 875-125 MG TAB 1 TABLET PO ×2 (08:19→20:32)
[2024-07-31] MEDS: MULTIVITAMINS THERAPEUTIC TAB (*BKC) 1 TABLET PO (08:19)
--- NOTE | 2024-07-31 10:53 | P.PNIM_ITS ---
Progress Note: A&P Assessment and Plan (1) Dementia: Code(s): F03.90 - Unspecified dementia, unspecified severity, without behavioral disturbance, psychotic disturbance, mood disturbance, and anxiety Status: Acute Assessment and Plan: * Reorient as needed. * Sitter at bedside. (2) Pneumonia: Qualifiers: Laterality: right Lung location: lower lobe of lung Pneumonia type: due to unspecified organism Qualified Code(s): J18.9 - Pneumonia, unspecified organism Code(s): J18.9 - Pneumonia, unspecified organism Status: Acute Assessment and Plan: * WBC 10.0 today. * Completed Azithromycin. Currently receiving Augmentin 875-125 mg 1 tablet q 12. * Duoneb PRN. * Blood cultures no growth to date. (3) Neurologic abnormality: Code(s): R29.818 - Other symptoms and signs involving the nervous system Status: Acute Assessment and Plan: * Episode this morning during therapy. * 07/28/24- Patient reported to have gotten walker wheel caught on IV pole while turning to sit on commode in the bathroom. Patient needing to urinate stiffened up and when sat down went backwards with a blank stare but did not loose consciousness, legs where raised and patient started communicating. Blood pressure 106/71, HR 84, Sa02 97% RA. Blood sugar 154. * Trop <0.012. * Carotid dopplers: IMPRESSION: 1. <50% stenosis in the right internal carotid artery. 2. <50% stenosis in the left internal carotid artery. * Echocardiogram: Summary 1. Complete two-dimensional, color flow and Doppler transthoracic echocardiogram is performed. 2. There is normal biventricular size and systolic function. 3. The mitral valve leaflets are thickened but opens well. There is mild mitral regurgitation. Left Ventricle The left ventricle is normal in size and systolic function. There is concentric left ventricular remodeling. The left ventricular ejection fraction is visually estimated to be 60-65%. * Telemetry- SR 78. (4) Generalized weakness: Code(s): R53.1 - Weakness Status: Acute Assessment and Plan: * PT/OT (5) Acute kidney injury: Code(s): N17.9 - Acute kidney failure, unspecified Status: Acute Assessment and Plan: * Creatinine improved from 1.48>1.28>1.16>1.12>1.15>1.04. * Encourage oral intake. (6) Hypertension: Code(s): I10 - Essential (primary) hypertension Status: Acute Assessment and Plan: * Orthostatics 07/31/24: Lying 195/91, Sitting 145/72, and standing 92/47. Place Nephrology consult. * Orthostatics 07/30/24: Lying 156/68 HR 78, Sitting 118/67 HR 79, and standing 129/43 HR 81. Liot Hose. Decrease NS @ 50 ml/hr. * Orthostatics 07/29/24: Lying 173/84, Sitting 107/68, and standing 76/44. Lito hose added. NS @ 50 ml/hr. * Hydralazine 10 mg ivp q 8 PRN. (7) Fall: Code(s): W19.XXXA - Unspecified fall, initial encounter Status: Acute Assessment and Plan: * Bed alarm. * Sitter at bedside. * Moving patient across from nurses station on video. Subjective Date/time seen: 07/31/24 10:53 Interval history: Patient sitting up in bed with at bedside. Patient found with a fall overnight, patient found on knees. At present patient denies pain, headache, dizziness, nausea, or vomiting. Review of Systems Review of Systems: All systems reviewed & are unremarkable except as noted in HPI and below Exam Const: General: comfortable and no acute distress Resp: Effort & Inspection: normal respiratory effort Auscultation: diminished lung sounds GI: GI Palp: Yes Soft to palpation Auscultation: normal bowel sounds Neuro: Speech: normal speech Extrem: General: no pedal edema Other: No swelling or open areas noted to bilateral knees. No tenderness on palpation. Psych: Other: Oriented to person and place Objective Data Vital Signs Vital Signs: Vital Signs - 24 hr 07/30/24 12:00 07/30/24 15:19 07/30/24 15:20 Temperature 98.2 F Pulse Rate 81 78 Respiratory Rate 18 Blood Pressure 156/68 H 156/68 H Pulse Oximetry 97 Oxygen Delivery 07/30/24 15:32 07/30/24 15:37 07/30/24 16:00 Temperature Pulse Rate 79 81 76 Respiratory Rate Blood Pressure 118/67 129/43 L Pulse Oximetry 98 Oxygen Delivery 07/30/24 20:00 07/30/24 20:41 07/31/24 00:00 Temperature 97.6 F Pulse Rate 67 71 66 Respiratory Rate 18 Blood Pressure 157/75 H Pulse Oximetry 100 Oxygen Delivery 07/31/24 04:00 07/31/24 06:00 07/31/24 08:00 Temperature 97.1 F L Pulse Rate 65 82 67 Respiratory Rate 20 Blood Pressure 157/75 H Pulse Oximetry 100 Oxygen Delivery 07/31/24 09:00 Temperature Pulse Rate Respiratory Rate Blood Pressure Pulse Oximetry Oxygen Delivery Room Air Intake/Output Intake/Output: Intake & Output 07/28/24 07/29/24 07/30/24 07/31/24 23:59 23:59 23:59 23:59 Intake Total 2015 188 9516 Output Total 824 012 3714 Balance 800 -173 1480 -1000 Meds/Results Medications: Active Medications Generic Name Dose Route Start Last Admin Trade Name Freq PRN Reason Stop Dose Admin Acetaminophen 650 mg 07/30/24 07:34 07/30/24 08:23 Acetaminophen 325 Mg Tablet PO 650 mg Q4H PRN Administration Pain Albuterol/Ipratropium 3 ml 07/27/24 17:04 Ipratropium 0.5 Mg/Albuterol Sulfate 2.5 Mg Ampul.Neb 3 Ml INHALATION Q6HRT PRN Shortness Of Breath Or Wheezing Amoxicillin/Clavulanate Potassium 1 tablet 07/30/24 09:00 07/31/24 08:19 Amoxicillin/Clavulanate K 875-125 Mg Tab PO 08/01/24 21:01 1 tablet Q12HR KIESHA Administration Apixaban 5 mg 07/26/24 21:00 07/31/24 08:19 Apixaban 5 Mg Tablet PO 5 mg Q12HR KIESHA Administration Hydralazine HCl 10 mg 07/27/24 16:59 07/30/24 06:23 Hydralazine Hcl 20 Mg/Ml Vial IV PUSH 10 mg Q8H PRN Administration Blood Pressure - High Sodium Chloride 1,000 mls @ 50 mls/hr 07/29/24 16:35 07/30/24 16:52 Normal Saline Iv IV CONT 75 mls/hr .Q20H KIESHA Administration Multivitamins Therapeutic 1 tablet 07/27/24 09:00 07/31/24 08:19 Multivitamins Therapeutic Tab (*Bkc) PO 1 tablet DAILY KIESHA Administration Pantoprazole Sodium 40 mg 07/26/24 21:00 07/30/24 20:21 Pantoprazole 40 Mg Tablet PO 40 mg HS KIESHA Administration Rosuvastatin Calcium 20 mg 07/26/24 21:00 07/30/24 20:21 Rosuvastatin 20 Mg Tablet PO 20 mg HS KIESHA Administration Tamsulosin HCl 0.4 mg 07/26/24 21:00 07/30/24 20:21 Tamsulosin Hcl 0.4 Mg Capsule PO 0.4 mg HS KIESHA Administration Radiology Results: ITS Impressions Head CT 07/26/24 09:31 IMPRESSION: No acute intracranial findings. Cervical Spine CT 07/26/24 09:36 IMPRESSION: No acute osseous abnormality cervical spine. Chest X-Ray 07/26/24 09:36 Impression: 1: Possible acute focal pneumonia right lung base versus chronic scarring. 2: Coarse chronic bilateral pleural calcifications, consistent with prior asbestos exposure. Pelvis X-Ray 07/26/24 09:43 IMPRESSION: Lucency at the junction of the right acetabulum with the superior pubic ramus. Possibility of fracture cannot be excluded. CT is advised. Pelvis CT 07/26/24 10:38 IMPRESSION: 1. Degenerative skeletal changes in the lower lumbar spine and pelvis as detailed above. No acute osseous abnormality. Carotid Doppler Study 07/28/24 14:29 IMPRESSION: 1. <50% stenosis in the right internal carotid artery. 2. <50% stenosis in the left internal carotid artery. Labs Labs: Laboratory Results - last 24 hr 07/31/24 07/31/24 05:40 06:46 WBC 10.0 RBC 4.11 L Hgb 13.6 L Hct 41.3 L MCV 100.5 H MCH 33.1 MCHC 32.9 RDW 13.2 Plt Count 216 MPV 10.2 Sodium 140 Potassium 4.3 Chloride 106 Carbon Dioxide 29 Anion Gap 5 BUN 22 H Creatinine 1.04 Estim Creat Clear Calc 49 Estimated GFR > 60 Glucose 98 Calcium 8.8 Magnesium 2.4 H Quality VTE Prophylaxis VTE prophylaxis: pharmacologic ordered
[2024-07-31] MEDS: ROSUVASTATIN 20 MG TABLET PO (20:31)
[2024-07-31] MEDS: TAMSULOSIN HCL 0.4 MG CAPSULE PO (20:31)
[2024-07-31] MEDS: PANTOPRAZOLE 40 MG TABLET PO (20:32)
[2024-08-01] VITALS (11 sets, daily range): BP systolic 80–189; BP diastolic 44–88; PULSE 61–83; RESP 20; TEMP 36–36.1; O2SAT 97–100
[2024-08-01 06:27] LABS: Hematocrit 40.7 % (42.0-52.0); Hemoglobin 12.9 g/dL (14.0-18.0); Mean Corpuscular HGB Conc 31.7 g/dl (32-36); Mean Corpuscular Hemoglobin 32.7 pg (26-34); Mean Corpuscular Volume 103.3 fl (80-100); Mean Platelet Volume 10.2 fl (7.4-10.4); Platelet Count Result 228 k/mm3 (150-375); Red Blood Count 3.94 M/mm3 (4.6-6.20); Red Cell Distribution Width 13.2 % (11.5-14.5); White Blood Count 9.4 K/mm3 (4.5-10.0)
[2024-08-01 06:44] LABS: Anion Gap 5 mmol/L (4-12); Blood Urea Nitrogen 21 mg/dL (9-20); Calcium 8.7 mg/dL (8.4-10.2); Carbon Dioxide 28 mmol/L (22-30); Chloride 104 mmol/L (98-107); Estimated CRCL calculation 50 ml/min; Estimated Glomerular Filt Rate > 60; Glucose 103 mg/dL (65-110); Magnesium 2.3 mg/dL (1.6-2.3); Potassium 3.9 mmol/L (3.4-5.0); Sodium 137 mmol/L (137-145)
[2024-08-01] MEDS: MULTIVITAMINS THERAPEUTIC TAB (*BKC) 1 TABLET PO (08:12)
[2024-08-01] MEDS: APIXABAN 5 MG TABLET PO ×2 (08:12→21:28)
[2024-08-01] MEDS: AMOXICILLIN/CLAVULANATE K 875-125 MG TAB 1 TABLET PO ×2 (08:12→21:28)
--- NOTE | 2024-08-01 11:31 | P.PNIM_ITS ---
Progress Note: A&P Assessment and Plan (1) Dementia: Code(s): F03.90 - Unspecified dementia, unspecified severity, without behavioral disturbance, psychotic disturbance, mood disturbance, and anxiety Status: Acute Assessment and Plan: * Reorient as needed. * Sitter at bedside. (2) Pneumonia: Qualifiers: Laterality: right Lung location: lower lobe of lung Pneumonia type: due to unspecified organism Qualified Code(s): J18.9 - Pneumonia, unspecified organism Code(s): J18.9 - Pneumonia, unspecified organism Status: Acute Assessment and Plan: * WBC 9.4 today. * Completed Azithromycin. Currently receiving Augmentin 875-125 mg 1 tablet q 12. * Duoneb PRN. * Blood cultures no growth to date. (3) Neurologic abnormality: Code(s): R29.818 - Other symptoms and signs involving the nervous system Status: Acute Assessment and Plan: * Episode this morning during therapy. * 07/28/24- Patient reported to have gotten walker wheel caught on IV pole while turning to sit on commode in the bathroom. Patient needing to urinate stiffened up and when sat down went backwards with a blank stare but did not loose consciousness, legs where raised and patient started communicating. Blood pressure 106/71, HR 84, Sa02 97% RA. Blood sugar 154. * Trop <0.012. * Carotid dopplers: IMPRESSION: 1. <50% stenosis in the right internal carotid artery. 2. <50% stenosis in the left internal carotid artery. * Echocardiogram: Summary 1. Complete two-dimensional, color flow and Doppler transthoracic echocardiogram is performed. 2. There is normal biventricular size and systolic function. 3. The mitral valve leaflets are thickened but opens well. There is mild mitral regurgitation. Left Ventricle The left ventricle is normal in size and systolic function. There is concentric left ventricular remodeling. The left ventricular ejection fraction is visually estimated to be 60-65%. * Telemetry- SR 82. (4) Generalized weakness: Code(s): R53.1 - Weakness Status: Acute Assessment and Plan: * PT/OT (5) Acute kidney injury: Code(s): N17.9 - Acute kidney failure, unspecified Status: Acute Assessment and Plan: * Creatinine improved from 1.48>1.28>1.16>1.12>1.15>1.04>1.01. * Encourage oral intake. (6) Hypertension: Code(s): I10 - Essential (primary) hypertension Status: Acute Assessment and Plan: * Orthostatics 08/01/24: Lying 189/88 HR 75, Sitting 151/84 HR 82, and standing 80/44 HR 83. Neurology consult. * Orthostatics 07/31/24: Lying 195/91, Sitting 145/72, and standing 92/47. Place Nephrology consult. * Orthostatics 07/30/24: Lying 156/68 HR 78, Sitting 118/67 HR 79, and standing 129/43 HR 81. Lito Hose. Decrease NS @ 50 ml/hr. * Orthostatics 07/29/24: Lying 173/84, Sitting 107/68, and standing 76/44. Lito hose added. NS @ 50 ml/hr. * Hydralazine 10 mg ivp q 8 PRN. (7) Orthostatic hypotension: Code(s): I95.1 - Orthostatic hypotension Status: Acute Assessment and Plan: * Orthostatics 08/01/24: Lying 189/88 HR 75, Sitting 151/84 HR 82, and standing 80/44 HR 83. Neurology consult. * Orthostatics 07/31/24: Lying 195/91, Sitting 145/72, and standing 92/47. Place Nephrology consult. * Orthostatics 07/30/24: Lying 156/68 HR 78, Sitting 118/67 HR 79, and standing 129/43 HR 81. Lito Hose. Decrease NS @ 50 ml/hr. * Orthostatics 07/29/24: Lying 173/84, Sitting 107/68, and standing 76/44. Lito hose added. NS @ 50 ml/hr. * 08/01/24: Stop Flomax, Add Midodrine 2.5 mg PO BID and Mestinon 30 mg PO q 12. Per Neurology recommendations. (8) Fall: Code(s): W19.XXXA - Unspecified fall, initial encounter Status: Acute Assessment and Plan: * Bed alarm. * Patient across from nurses station on video. * Reorient as needed. Subjective Date/time seen: 08/01/24 11:31 Interval history: Patient sitting up in chair with at bedside. Patient eating lunch. Patient denies chest pain, palpitations, headache, dizziness, nausea, or vomiting. Review of Systems Review of Systems: All systems reviewed & are unremarkable except as noted in HPI and below Exam Const: General: comfortable and no acute distress Resp: Effort & Inspection: normal respiratory effort Auscultation: diminished lung sounds Cardio: Rate: regular rate Rhythm: regular rhythm Other: Telemetry- SR 82 GI: GI Palp: Yes Soft to palpation Auscultation: normal bowel sounds Neuro: Speech: normal speech Extrem: General: no pedal edema Psych: Affect: normal affect Other: Oriented to person and place. Objective Data Vital Signs Vital Signs: Vital Signs - 24 hr 07/31/24 12:00 07/31/24 15:18 07/31/24 15:29 Temperature 97.3 F L Pulse Rate 71 75 Respiratory Rate 16 Blood Pressure 195/91 H 195/91 H Pulse Oximetry 98 Oxygen Delivery 07/31/24 15:30 07/31/24 15:30 07/31/24 16:00 Temperature Pulse Rate 69 Respiratory Rate Blood Pressure 145/72 H 92/47 L Pulse Oximetry Oxygen Delivery 07/31/24 20:00 07/31/24 20:00 07/31/24 21:21 Temperature 97.2 F L Pulse Rate 77 73 Respiratory Rate 20 Blood Pressure 126/71 156/78 H Pulse Oximetry 97 Oxygen Delivery 08/01/24 00:00 08/01/24 04:00 08/01/24 06:00 Temperature 96.9 F L Pulse Rate 74 67 65 Respiratory Rate 20 Blood Pressure 159/77 H Pulse Oximetry 99 Oxygen Delivery 08/01/24 08:00 08/01/24 08:00 Temperature Pulse Rate 69 Respiratory Rate Blood Pressure Pulse Oximetry Oxygen Delivery Room Air Intake/Output Intake/Output: Intake & Output 07/29/24 07/30/24 07/31/24 08/01/24 23:59 23:59 23:59 23:59 Intake Total 527 1480 440 240 Output Total 700 1800 1700 Balance -173 1480 -1360 -1460 Meds/Results Medications: Active Medications Generic Name Dose Route Start Last Admin Trade Name Freq PRN Reason Stop Dose Admin Acetaminophen 650 mg 07/30/24 07:34 07/30/24 08:23 Acetaminophen 325 Mg Tablet PO 650 mg Q4H PRN Administration Pain Albuterol/Ipratropium 3 ml 07/27/24 17:04 Ipratropium 0.5 Mg/Albuterol Sulfate 2.5 Mg Ampul.Neb 3 Ml INHALATION Q6HRT PRN Shortness Of Breath Or Wheezing Amoxicillin/Clavulanate Potassium 1 tablet 07/30/24 09:00 08/01/24 08:12 Amoxicillin/Clavulanate K 875-125 Mg Tab PO 08/01/24 21:01 1 tablet Q12HR KIESHA Administration Apixaban 5 mg 07/26/24 21:00 08/01/24 08:12 Apixaban 5 Mg Tablet PO 5 mg Q12HR KIESHA Administration Hydralazine HCl 10 mg 07/27/24 16:59 07/30/24 06:23 Hydralazine Hcl 20 Mg/Ml Vial IV PUSH 10 mg Q8H PRN Administration Blood Pressure - High Multivitamins Therapeutic 1 tablet 07/27/24 09:00 08/01/24 08:12 Multivitamins Therapeutic Tab (*Bkc) PO 1 tablet DAILY KIESHA Administration Pantoprazole Sodium 40 mg 07/26/24 21:00 07/31/24 20:32 Pantoprazole 40 Mg Tablet PO 40 mg HS KIESHA Administration Rosuvastatin Calcium 20 mg 07/26/24 21:00 07/31/24 20:31 Rosuvastatin 20 Mg Tablet PO 20 mg HS KIESHA Administration Tamsulosin HCl 0.4 mg 07/26/24 21:00 07/31/24 20:31 Tamsulosin Hcl 0.4 Mg Capsule PO 0.4 mg HS KIESHA Administration Radiology Results: ITS Impressions Head CT 07/26/24 09:31 IMPRESSION: No acute intracranial findings. Cervical Spine CT 07/26/24 09:36 IMPRESSION: No acute osseous abnormality cervical spine. Chest X-Ray 07/26/24 09:36 Impression: 1: Possible acute focal pneumonia right lung base versus chronic scarring. 2: Coarse chronic bilateral pleural calcifications, consistent with prior asbestos exposure. Pelvis X-Ray 07/26/24 09:43 IMPRESSION: Lucency at the junction of the right acetabulum with the superior pubic ramus. Possibility of fracture cannot be excluded. CT is advised. Pelvis CT 07/26/24 10:38 IMPRESSION: 1. Degenerative skeletal changes in the lower lumbar spine and pelvis as detailed above. No acute osseous abnormality. Carotid Doppler Study 07/28/24 14:29 IMPRESSION: 1. <50% stenosis in the right internal carotid artery. 2. <50% stenosis in the left internal carotid artery. Labs Labs: Laboratory Results - last 24 hr 08/01/24 05:41 WBC 9.4 RBC 3.94 L Hgb 12.9 L Hct 40.7 L MCV 103.3 H MCH 32.7 MCHC 31.7 L RDW 13.2 Plt Count 228 MPV 10.2 Sodium 137 Potassium 3.9 Chloride 104 Carbon Dioxide 28 Anion Gap 5 BUN 21 H Creatinine 1.01 Estim Creat Clear Calc 50 Estimated GFR > 60 Glucose 103 Calcium 8.7 Magnesium 2.3 Quality VTE Prophylaxis VTE prophylaxis: pharmacologic ordered
--- NOTE | 2024-08-01 11:40 | P.CONNP_ITS ---
Assessment and Plan Assessment and plan (1) Orthostatic hypotension: Code(s): I95.1 - Orthostatic hypotension Status: Acute Assessment and Plan: * quite severe as noted by orthostatic vital signs * etiology not clear * dehydration less likely since he s/p IVFs * cardiac disease is a possibility * automomic dysfunction? * medication related? * evaluation/therapy to date noted: * s/p IVFs * lito hose in place * Echo noted -- fairly normal EF and valves * head CT normal * carotid dopplers noted * check TSH and cortisol * consider reducing or discontinuing flomax * trial of midodrine?? * however, I worry that will increase his already elevated resting BP... * agree with Neurology consultation * follow trend of repeat orthostatic BPs I will continue to follow the patient with you while he remains hospitalized and make further recommendations as deemed necessary. Thank you for allowing me to participate in the care of this patient. L History of Present Illness Reason for Consult Consult date: 08/01/24 Reason for consult: Other (orthostatic hypotension) Chief Complaint Chief complaint: Acute Kidney Injury/Pneumonia History of Present Illness Narrative: Almost all the history that I have obtained is from review of the electronic medical record as well as discussion with the physician/nurses involved in the patient's care as is difficult to get a full detail account of what led to the patient's admission/hospitalization due to his underlying dementia. The patient is an 83-year-old male with a past medical history as outlined below who initially presented to [facility] Emergency Room with complaints of generalized weakness. The patient states that the patient has had significant weakness for the last week if not longer and has had multiple falls due to this issue. More concerning is that 1 every falls, it requires a significant amount of effort to assist the patient back up. Further history is somewhat limited as mentioned due the patient's cognitive deficits and there is no family present at the time of my visit to provide any other information/history. Workup and evaluation emergency room confirmed the presence weakness But was otherwise hemodynamically stable. Routine blood tests were significant for acute kidney injury/ acute renal failure and his chest x-ray was concerning for a possible pneumonia as well. On further questioning, the patient apparently has not been eating and drinking very well also. After appropriate cultures were obtained, he was initiated on antibiotic therapy for presumed community- acquired pneumonia as well as IV fluids for his acute kidney injury and subsequently admitted to the hospital for further evaluation and therapy. Since his admission, his renal function has improved to normal with IV fluids and ongoing therapeutic interventions. PT and OT as been attempting to see the patient but has been noted that he has significant orthostatic hypotension limiting what physical activity he can do. Renal consultation was requested due to his orthostatic hypotension. Unfortunately, I am unclear if the patient has had this issue or problem in the past. The possibility of dehydration as the etiology for this issue is of concern however with IV fluids, his renal function has normalized but he continues to have issues and problems with significant drops in his blood pressure from the seated position to standing position Her arguing that dehydration is less likely the cause. Further testing today demonstrates an echocardiogram without significant valvular abnormalities, carotid Dopplers with out significant carotid stenosis, and a normal CT scan of the brain. He currently has Lito hose stockings in place at the time of my visit. Given the significant drop in his blood pressure as noted by his orthostatics, Neurology has also been consulted as well. Currently, the patient does not appear to be in any acute distress. Review of Systems 2 Review of Systems: As per HPI. [facility] Past Medical History Medical History Atrial fibrillation Impacted cerumen of both ears Dementia Family History Family History Father Hypertension Sibling COPD (chronic obstructive pulmonary disease) Cancer Cerebrovascular accident Heart attack COVID Social History Social History Social History: Caffeine-coffee/soda Smoking status: Former smoker Tobacco type: cigarettes Alcohol intake: never Substance use: never Lack of Transportation: No Lack of Food: Never True Current Housing: I Have Housing Concerned About Future Housing: No Difficulty Paying Gas/Electric Bills: No Difficulty Paying for Meds: No Currently Unemployed: No Education: Trade/Vocational Certificate Difficulty w/ Childcare or Family Care: No Living arrangements: with family Occupation/Education: retired Gender identity (if verbalized by the patient): Male Spiritual care concerns: No Meds Home Medications and Allergies Home Medications ?Medication ?Instructions ?Recorded ?Confirmed ?Type omeprazole 20 mg capsule,delayed 20 mg PO HS 11/26/20 07/26/24 History release rosuvastatin 20 mg tablet 20 mg PO HS 11/26/20 07/26/24 History apixaban 5 mg tablet (Eliquis) 5 mg PO Q12HR 30 days #60 tabs 12/12/20 07/26/24 Rx tamsulosin 0.4 mg capsule 0.4 mg PO HS 09/09/22 07/26/24 History multivitamin (Daily Multi-Vitamin 1 tablet PO DAILY 07/26/24 07/26/24 History tablet) Allergies Allergy/AdvReac Type Severity Reaction Status Date / Time adhesive tape Allergy Itching Verified 07/26/24 14:13 Vital Signs Vital Signs Temp Pulse Resp BP Pulse Ox O2 Del Method 08/01/24 08:00 69 08/01/24 08:00 Room Air 08/01/24 06:00 96.9 F L 65 20 159/77 H 99 08/01/24 04:00 67 08/01/24 00:00 74 07/31/24 21:21 97.2 F L 73 20 156/78 H 97 07/31/24 20:00 77 07/31/24 20:00 126/71 07/31/24 16:00 69 07/31/24 15:30 92/47 L (standing) 07/31/24 15:30 145/72 H (sitting) 07/31/24 15:29 195/91 H (supine) 07/31/24 15:18 97.3 F L 75 16 195/91 H 98 Exam 2 Narrative: GENERAL APPEARANCE: elderly but well developed well nourished male in no acute distress HEENT: normocephalic, atraumatic, normal conjunctiva and sclera, nares patient NECK: no lymphadenopathy, thyromegaly, or JVD MOUTH: normal lips, teeth, and gums CARDIOVASCULAR: RRR, normal S1 and S2, no rub RESPIRATORY: clear to auscultation bilaterally ABDOMEN: soft, nontender, nondistended, positive bowel sounds present EXTREMITIES: no evidence of cyanosis, clubbing, or edema NEUROLOGICAL: alert and oriented x 1 -2; CN II - XII intact bilaterally; no focal deficits noted Results Lab Results 08/05/24 06:41 08/05/24 06:41 Lab results: Most recent lab results Calcium 8.7 mg/dL (8.4-10.2) 08/01/24 05:41 Magnesium 2.3 mg/dL (1.6-2.3) 08/01/24 05:41
--- NOTE | 2024-08-01 17:07 | P.CONNEU_ITS ---
Assessment and Plan Assessment and plan (1) Orthostatic hypotension: Code(s): I95.1 - Orthostatic hypotension Status: Acute (2) Dementia: Code(s): F03.90 - Unspecified dementia, unspecified severity, without behavioral disturbance, psychotic disturbance, mood disturbance, and anxiety Status: Acute Plan Orthostatic hypotension appears to be significant since his blood pressure 3 recordings I saw 1 of the was 195/91 dropping down to 92 x 467. I would suggest to hold off Flomax and of course this can cause further problems and you may have to consider urology consultation or catheterization if he gets urinary retention nevertheless I have seen this problem in patients on Flomax on many occasions. You may have to use very low doses of midodrine to in view of the risk of supine hypertension since his blood pressure is on the high side when he lies down. We can use Midodrine 2.5 mg twice a day along with Mestinon or pyridostigmine 30 mg twice a day. The dose of these can be gradually increased while observing progress. Consult date: 08/01/24 HPI: Petar Marquez is a 83 year old male With history of dementia and postural hypertension was seen for neurological evaluation. Patient is also known to have prostate hyperplasia and is on Flomax. Current list of medications were reviewed. Patient is unable to offer much history however his was here and apparently as soon as the patient gets up he started to get dizzy. His blood pressure recording shows supine blood pressure was 195/91 and a standing blood pressure was 90/ 47 mm of mercury. No other relevant history was available from the patient or his at this time. Does feel generally weak and tends to fall. Review of Systems 2 Review of Systems: ROS unobtainable: Yes unobtainable due to mental status [facility] Past Medical History Medical History Atrial fibrillation Impacted cerumen of both ears Dementia Family History Family History Father Hypertension Sibling COPD (chronic obstructive pulmonary disease) Cancer Cerebrovascular accident Heart attack COVID Social History Social History Social History: Caffeine-coffee/soda Smoking status: Former smoker Tobacco type: cigarettes Alcohol intake: never Substance use: never Lack of Transportation: No Lack of Food: Never True Current Housing: I Have Housing Concerned About Future Housing: No Difficulty Paying Gas/Electric Bills: No Difficulty Paying for Meds: No Currently Unemployed: No Education: Trade/Vocational Certificate Difficulty w/ Childcare or Family Care: No Living arrangements: with family Occupation/Education: retired Gender identity (if verbalized by the patient): Male Spiritual care concerns: No Meds Home Medications and Allergies Home Medications ?Medication ?Instructions ?Recorded ?Confirmed ?Type omeprazole 20 mg capsule,delayed 20 mg PO HS 11/26/20 07/26/24 History release rosuvastatin 20 mg tablet 20 mg PO HS 11/26/20 07/26/24 History apixaban 5 mg tablet (Eliquis) 5 mg PO Q12HR 30 days #60 tabs 12/12/20 07/26/24 Rx tamsulosin 0.4 mg capsule 0.4 mg PO HS 09/09/22 07/26/24 History multivitamin (Daily Multi-Vitamin 1 tablet PO DAILY 07/26/24 07/26/24 History tablet) Allergies Allergy/AdvReac Type Severity Reaction Status Date / Time adhesive tape Allergy Itching Verified 07/26/24 14:13 Vital Signs Vital Signs - 24 hr 07/31/24 20:00 07/31/24 20:00 07/31/24 21:21 Temperature 97.2 F L Pulse Rate 77 73 Respiratory Rate 20 Blood Pressure 126/71 156/78 H Pulse Oximetry 97 Oxygen Delivery 08/01/24 00:00 08/01/24 04:00 08/01/24 06:00 Temperature 96.9 F L Pulse Rate 74 67 65 Respiratory Rate 20 Blood Pressure 159/77 H Pulse Oximetry 99 Oxygen Delivery 08/01/24 08:00 08/01/24 08:00 08/01/24 12:00 Temperature Pulse Rate 69 75 Respiratory Rate Blood Pressure 189/88 H Pulse Oximetry Oxygen Delivery Room Air 08/01/24 12:00 08/01/24 12:02 08/01/24 12:04 Temperature Pulse Rate 80 82 83 Respiratory Rate Blood Pressure 151/84 H 80/44 L Pulse Oximetry Oxygen Delivery 08/01/24 14:00 Temperature 97 F L Pulse Rate 75 Respiratory Rate 20 Blood Pressure 119/84 Pulse Oximetry 100 Oxygen Delivery Exam 2 Narrative: Awake and alert however patient is hard of hearing and also seems to have cognitive impairment and unable to cooperate with the mental status testing. However he was able to cooperate for cranial nerve testing which appear within normal limit limits. No facial asymmetry. Tongue was midline. Extraocular movements are intact. Motor system shows normal power and tone in both upper lower limbs. There is some bradykinesia but no definite cogwheeling. No rest tremor were noted. Results Labs 08/01/24 05:41 08/01/24 05:41 Labs: Short CBC 08/01/24 Range/Units 05:41 WBC 9.4 (4.5-10.0) K/mm3 Hgb 12.9 L (14.0-18.0) g/dL Hct 40.7 L (42.0-52.0) % Plt Count 228 (150-375) k/mm3 BMP 08/01/24 05:41 Sodium 137 Potassium 3.9 Chloride 104 Carbon Dioxide 28 BUN 21 H Creatinine 1.01 Glucose 103 Calcium 8.7
[2024-08-01] MEDS: ACETAMINOPHEN 325 MG TABLET 650 MG PO (21:27)
[2024-08-01] MEDS: pyRIDostigmine bromide 30 MG TABLET PO (21:27)
[2024-08-01] MEDS: MIDODRINE HCL 2.5 MG TABLET PO (21:28)
[2024-08-01] MEDS: ROSUVASTATIN 20 MG TABLET PO (21:28)
[2024-08-01] MEDS: PANTOPRAZOLE 40 MG TABLET PO (21:28)
[2024-08-02] VITALS (10 sets, daily range): BP systolic 76–159; BP diastolic 55–82; PULSE 57–83; RESP 16–20; TEMP 35.5–36.2; O2SAT 95–100
[2024-08-02 06:33] LABS: Hematocrit 42.5 % (42.0-52.0); Hemoglobin 13.6 g/dL (14.0-18.0); Mean Corpuscular Hemoglobin 32.5 pg (26-34); Mean Corpuscular Volume 101.7 fl (80-100); Mean Platelet Volume 10.1 fl (7.4-10.4); Platelet Count Result 210 k/mm3 (150-375); Red Blood Count 4.18 M/mm3 (4.6-6.20); Red Cell Distribution Width 13.3 % (11.5-14.5); White Blood Count 8.8 K/mm3 (4.5-10.0)
[2024-08-02 06:42] LABS: Anion Gap 5 mmol/L (4-12); Blood Urea Nitrogen 20 mg/dL (9-20); Calcium 8.8 mg/dL (8.4-10.2); Carbon Dioxide 29 mmol/L (22-30); Chloride 104 mmol/L (98-107); Estimated CRCL calculation 55 ml/min; Estimated Glomerular Filt Rate > 60; Glucose 106 mg/dL (65-110); Magnesium 2.3 mg/dL (1.6-2.3); Potassium 4.2 mmol/L (3.4-5.0); Sodium 138 mmol/L (137-145)
[2024-08-02] MEDS: MIDODRINE HCL 2.5 MG TABLET PO ×2 (08:19→20:37)
[2024-08-02] MEDS: MULTIVITAMINS THERAPEUTIC TAB (*BKC) 1 TABLET PO (08:19)
[2024-08-02] MEDS: pyRIDostigmine bromide 30 MG TABLET PO ×2 (08:19→20:37)
[2024-08-02] MEDS: APIXABAN 5 MG TABLET PO ×2 (08:19→20:37)
--- NOTE | 2024-08-02 12:27 | P.PNIM_ITS ---
Progress Note: A&P Assessment and Plan (1) Dementia: Code(s): F03.90 - Unspecified dementia, unspecified severity, without behavioral disturbance, psychotic disturbance, mood disturbance, and anxiety Status: Acute Assessment and Plan: * Reorient as needed. (2) Pneumonia: Qualifiers: Laterality: right Lung location: lower lobe of lung Pneumonia type: due to unspecified organism Qualified Code(s): J18.9 - Pneumonia, unspecified o rganism Code(s): J18.9 - Pneumonia, unspecified organism Status: Acute Assessment and Plan: * WBC 8.8 today. * Completed Azithromycin and Augmentin. * Duoneb PRN. * Blood cultures no growth to date. (3) Neurologic abnormality: Code(s): R29.818 - Other symptoms and signs involving the nervous system Status: Acute Assessment and Plan: * Episode this morning during therapy. * 07/28/24- Patient reported to have gotten walker wheel caught on IV pole while turning to sit on commode in the bathroom. Patient needing to urinate stiffened up and when sat down went backwards with a blank stare but did not loose consciousness, legs where raised and patient started communicating. Blood pressure 106/71, HR 84, Sa02 97% RA. Blood sugar 154. * Trop <0.012. * Carotid dopplers: IMPRESSION: 1. <50% stenosis in the right internal carotid artery. 2. <50% stenosis in the left internal carotid artery. * Echocardiogram: Summary 1. Complete two-dimensional, color flow and Doppler transthoracic echocardiogram is performed. 2. There is normal biventricular size and systolic function. 3. The mitral valve leaflets are thickened but opens well. There is mild mitral regurgitation. Left Ventricle The left ventricle is normal in size and systolic function. There is concentric left ventricular remodeling. The left ventricular ejection fraction is visually estimated to be 60-65%. * Telemetry- SR 62. (4) Generalized weakness: Code(s): R53.1 - Weakness Status: Acute Assessment and Plan: * PT/OT (5) Acute kidney injury: Code(s): N17.9 - Acute kidney failure, unspecified Status: Acute Assessment and Plan: * Creatinine improved from 1.48>1.28>1.16>1.12>1.15>1.04>1.01>0.92. * Encourage oral intake. (6) Hypertension: Code(s): I10 - Essential (primary) hypertension Status: Acute Assessment and Plan: * Orthostatics 08/01/24: Lying 189/88 HR 75, Sitting 151/84 HR 82, and standing 80/44 HR 83. Neurology consult. * Orthostatics 07/31/24: Lying 195/91, Sitting 145/72, and standing 92/47. Place Nephrology consult. * Orthostatics 07/30/24: Lying 156/68 HR 78, Sitting 118/67 HR 79, and standing 129/43 HR 81. Lito Hose. Decrease NS @ 50 ml/hr. * Orthostatics 07/29/24: Lying 173/84, Sitting 107/68, and standing 76/44. Lito hose added. NS @ 50 ml/hr. * Hydralazine 10 mg ivp q 8 PRN. (7) Orthostatic hypotension: Code(s): I95.1 - Orthostatic hypotension Status: Acute Assessment and Plan: * Orthostatics 08/02/24: Lying 159/77 HR 63, Sitting 119/76 HR 72, and standing 76/56 HR 76. Per Neurology recommendations on 08/01: Stop Flomax, Add Midodrine 2.5 mg PO BID and Mestinon 30 mg PO q 12. * Orthostatics 08/01/24: Lying 189/88 HR 75, Sitting 151/84 HR 82, and standing 80/44 HR 83. Neurology consult. * Orthostatics 07/31/24: Lying 195/91, Sitting 145/72, and standing 92/47. Place Nephrology consult. * Orthostatics 07/30/24: Lying 156/68 HR 78, Sitting 118/67 HR 79, and standing 129/43 HR 81. Lito Hose. Decrease NS @ 50 ml/hr. * Orthostatics 07/29/24: Lying 173/84, Sitting 107/68, and standing 76/44. Lito hose added. NS @ 50 ml/hr. * 08/01/24: Stop Flomax, Add Midodrine 2.5 mg PO BID and Mestinon 30 mg PO q 12. Per Neurology recommendations. (8) Fall: Code(s): W19.XXXA - Unspecified fall, initial encounter Status: Acute Assessment and Plan: * Bed alarm. * Patient across from nurses station on video. * Reorient as needed. Subjective Date/time seen: 08/02/24 12:27 Interval history: Patient sitting up in bed with at bedside. Patient denies chest pain, palpitations, headache, dizziness, nausea, or vomiting. Review of Systems Review of Systems: All systems reviewed & are unremarkable except as noted in HPI and below Exam Const: General: comfortable and no acute distress Resp: Effort & Inspection: normal respiratory effort Auscultation: diminished lung sounds Cardio: Rate: regular rate Rhythm: regular rhythm Other: Telemetry- SR 64. GI: GI Palp: Yes Soft to palpation Auscultation: normal bowel sounds Neuro: Speech: normal speech Extrem: General: no pedal edema Psych: Affect: normal affect Other: Person and place. Objective Data Vital Signs Vital Signs: Vital Signs - 24 hr 08/01/24 14:00 08/01/24 16:00 08/01/24 20:00 Temperature 97 F L Pulse Rate 75 73 82 Respiratory Rate 20 20 Blood Pressure 119/84 Pulse Oximetry 100 97 Oxygen Delivery Room Air 08/01/24 20:00 08/01/24 22:00 08/02/24 00:00 Temperature 96.8 F L Pulse Rate 61 82 61 Respiratory Rate 20 Blood Pressure 171/83 H Pulse Oximetry 97 Oxygen Delivery 08/02/24 04:00 08/02/24 06:00 08/02/24 08:00 Temperature 96 F L 96 F L Pulse Rate 83 57 L 57 L Respiratory Rate 20 20 Blood Pressure 150/82 H 150/82 H Pulse Oximetry 96 96 Oxygen Delivery 08/02/24 08:00 08/02/24 08:00 08/02/24 10:00 Temperature Pulse Rate 57 L 57 L 63 Respiratory Rate 20 Blood Pressure 159/77 H Pulse Oximetry 96 100 Oxygen Delivery Room Air 08/02/24 10:44 08/02/24 10:44 Temperature Pulse Rate 72 76 Respiratory Rate Blood Pressure 119/76 76/55 L Pulse Oximetry 100 95 Oxygen Delivery Intake/Output Intake/Output: Intake & Output 07/30/24 07/31/24 08/01/24 08/02/24 23:59 23:59 23:59 23:59 Intake Total 3364 878 4597 240 Output Total 1800 3000 1100 Balance 0230 -1360 -1730 -860 Meds/Results Medications: Active Medications Generic Name Dose Route Start Last Admin Trade Name Freq PRN Reason Stop Dose Admin Acetaminophen 650 mg 07/30/24 07:34 08/01/24 21:27 Acetaminophen 325 Mg Tablet PO 650 mg Q4H PRN Administration Pain Albuterol/Ipratropium 3 ml 07/27/24 17:04 Ipratropium 0.5 Mg/Albuterol Sulfate 2.5 Mg Ampul.Neb 3 Ml INHALATION Q6HRT PRN Shortness Of Breath Or Wheezing Apixaban 5 mg 07/26/24 21:00 08/02/24 08:19 Apixaban 5 Mg Tablet PO 5 mg Q12HR KIESHA Administration Hydralazine HCl 10 mg 07/27/24 16:59 07/30/24 06:23 Hydralazine Hcl 20 Mg/Ml Vial IV PUSH 10 mg Q8H PRN Administration Blood Pressure - High Midodrine 2.5 mg 08/01/24 21:00 08/02/24 08:19 Midodrine Hcl 2.5 Mg Tablet PO 2.5 mg Q12HR KIESHA Administration Multivitamins Therapeutic 1 tablet 07/27/24 09:00 08/02/24 08:19 Multivitamins Therapeutic Tab (*Bkc) PO 1 tablet DAILY KIESHA Administration Pantoprazole Sodium 40 mg 07/26/24 21:00 08/01/24 21:28 Pantoprazole 40 Mg Tablet PO 40 mg HS KIESHA Administration Pyridostigmine [place] 30 mg 08/01/24 21:00 08/02/24 08:19 Pyridostigmine [place] 30 Mg Tablet PO 30 mg Q12HR KIESHA Administration Rosuvastatin Calcium 20 mg 07/26/24 21:00 08/01/24 21:28 Rosuvastatin 20 Mg Tablet PO 20 mg HS KIESHA Administration Radiology Results: ITS Impressions Head CT 07/26/24 09:31 IMPRESSION: No acute intracranial findings. Cervical Spine CT 07/26/24 09:36 IMPRESSION: No acute osseous abnormality cervical spine. Chest X-Ray 07/26/24 09:36 Impression: 1: Possible acute focal pneumonia right lung base versus chronic scarring. 2: Coarse chronic bilateral pleural calcifications, consistent with prior asbestos exposure. Pelvis X-Ray 07/26/24 09:43 IMPRESSION: Lucency at the junction of the right acetabulum with the superior pubic ramus. Possibility of fracture cannot be excluded. CT is advised. Pelvis CT 07/26/24 10:38 IMPRESSION: 1. Degenerative skeletal changes in the lower lumbar spine and pelvis as detailed above. No acute osseous abnormality. Carotid Doppler Study 07/28/24 14:29 IMPRESSION: 1. <50% stenosis in the right internal carotid artery. 2. <50% stenosis in the left internal carotid artery. Labs Labs: Laboratory Results - last 24 hr 08/02/24 06:10 WBC 8.8 RBC 4.18 L Hgb 13.6 L Hct 42.5 MCV 101.7 H MCH 32.5 MCHC 32.0 RDW 13.3 Plt Count 210 MPV 10.1 Sodium 138 Potassium 4.2 Chloride 104 Carbon Dioxide 29 Anion Gap 5 BUN 20 Creatinine 0.92 Estim Creat Clear Calc 55 Estimated GFR > 60 Glucose 106 Calcium 8.8 Magnesium 2.3 Quality VTE Prophylaxis VTE prophylaxis: pharmacologic ordered
[2024-08-02] MEDS: PANTOPRAZOLE 40 MG TABLET PO (20:37)
[2024-08-02] MEDS: ROSUVASTATIN 20 MG TABLET PO (20:37)
[2024-08-02 22:07] LABS: Glucose Point of Care 174 mg/dl (65-105)
[2024-08-03] VITALS (13 sets, daily range): BP systolic 74–192; BP diastolic 55–98; PULSE 62–81; RESP 16–20; TEMP 36.1–36.9; O2SAT 97–99
[2024-08-03] MEDS: hydrALAZINE HCL 20 MG/ML VIAL 10 MG IV PUSH (06:11)
[2024-08-03 07:32] LABS: Hematocrit 44.8 % (42.0-52.0); Hemoglobin 14.6 g/dL (14.0-18.0); Mean Corpuscular HGB Conc 32.6 g/dl (32-36); Mean Corpuscular Hemoglobin 33.1 pg (26-34); Mean Corpuscular Volume 101.6 fl (80-100); Platelet Count Result 256 k/mm3 (150-375); Red Blood Count 4.41 M/mm3 (4.6-6.20); Red Cell Distribution Width 13.3 % (11.5-14.5); White Blood Count 10.9 K/mm3 (4.5-10.0)
[2024-08-03 07:44] LABS: Anion Gap 6 mmol/L (4-12); Blood Urea Nitrogen 28 mg/dL (9-20); Carbon Dioxide 28 mmol/L (22-30); Chloride 105 mmol/L (98-107); Estimated CRCL calculation 48 ml/min; Estimated Glomerular Filt Rate > 60; Glucose 109 mg/dL (65-110); Magnesium 2.5 mg/dL (1.6-2.3); Potassium 3.9 mmol/L (3.4-5.0); Sodium 139 mmol/L (137-145)
[2024-08-03] MEDS: MULTIVITAMINS THERAPEUTIC TAB (*BKC) 1 TABLET PO (08:30)
[2024-08-03] MEDS: APIXABAN 5 MG TABLET PO ×2 (08:30→20:40)
[2024-08-03] MEDS: MIDODRINE HCL 2.5 MG TABLET PO ×2 (08:30→20:40)
[2024-08-03] MEDS: pyRIDostigmine bromide 30 MG TABLET PO ×2 (08:30→20:40)
--- NOTE | 2024-08-03 09:50 | P.PNNP_ITS ---
Progress Note: A&P Assessment and Plan (1) Orthostatic hypotension: Code(s): I95.1 - Orthostatic hypotension Status: Acute Assessment and Plan: * quite severe as noted by orthostatic vital signs * etiology not clear * dehydration less likely since he s/p IVFs * cardiac disease is a possibility * automomic dysfunction? * medication related? * evaluation/therapy to date noted: * s/p IVFs * choco hose in place * Echo noted * head CT normal * carotid dopplers reviewed * TSH and cortisol okay * Neurology recommendations noted * flomax discontinued * inititated on midodrine and pyridostigmine * follow trend of repeat orthostatic BPs Not much else to really offer -- will continue to follow from a distance. L Subjective Date/time seen: 08/03/24 09:50 Interval history: Follow-up for orthostatic hypotension. No apparent distress voiced at the time of my visit; still with orthostatic vital signs as of yesterday (124/56 sitting --> 76/55 standing) despite current interventions/therapy; no new issues/problems noted since I last saw him. Exam 2 Narrative: General: elderly but WD/WN male in NAD Heart: normal S1 and S2; no rub Lungs: clear but diminished at bases Abdomen: soft, nontender, nondistended, positive bowel sounds Extremities: no cyanosis or clubbing; no edema Skin: warm and dry Objective Data Vital Signs Vital Signs: Vital Signs Temp Pulse Resp BP Pulse Ox O2 Del Method 08/03/24 08:14 75 133/66 97 08/03/24 08:00 73 124/59 L 99 08/03/24 08:00 Room Air 08/03/24 06:00 97.1 F L 65 20 192/81 H 99 08/03/24 00:00 66 08/02/24 22:00 97.2 F L 76 18 100 08/02/24 16:00 71 08/02/24 14:00 97.2 F L 71 16 141/81 H 100 Intake/Output Intake/Output: Intake & Output 07/31/24 08/01/24 08/02/24 08/03/24 23:59 23:59 23:59 23:59 Intake Total 440 1270 1270 680 Output Total 1800 3000 1400 350 Balance -1360 -1730 -130 330 Meds/Results Medications: Active Medications Generic Name Dose Route Start Last Admin Trade Name Freq PRN Reason Stop Dose Admin Acetaminophen 650 mg 07/30/24 07:34 08/01/24 21:27 Acetaminophen 325 Mg Tablet PO 650 mg Q4H PRN Administration Pain Albuterol/Ipratropium 3 ml 07/27/24 17:04 Ipratropium 0.5 Mg/Albuterol Sulfate 2.5 Mg Ampul.Neb 3 Ml INHALATION Q6HRT PRN Shortness Of Breath Or Wheezing Apixaban 5 mg 07/26/24 21:00 08/03/24 08:30 Apixaban 5 Mg Tablet PO 5 mg Q12HR KIESHA Administration Hydralazine HCl 10 mg 07/27/24 16:59 08/03/24 06:11 Hydralazine Hcl 20 Mg/Ml Vial IV PUSH 10 mg Q8H PRN Administration Blood Pressure - High Midodrine 2.5 mg 08/01/24 21:00 08/03/24 08:30 Midodrine Hcl 2.5 Mg Tablet PO 2.5 mg Q12HR KIESHA Administration Multivitamins Therapeutic 1 tablet 07/27/24 09:00 08/03/24 08:30 Multivitamins Therapeutic Tab (*Bkc) PO 1 tablet DAILY KIESHA Administration Pantoprazole Sodium 40 mg 07/26/24 21:00 08/02/24 20:37 Pantoprazole 40 Mg Tablet PO 40 mg HS KIESHA Administration Pyridostigmine [place] 30 mg 08/01/24 21:00 08/03/24 08:30 Pyridostigmine [place] 30 Mg Tablet PO 30 mg Q12HR KIESHA Administration Rosuvastatin Calcium 20 mg 07/26/24 21:00 08/02/24 20:37 Rosuvastatin 20 Mg Tablet PO 20 mg HS KIESHA Administration Radiology Results: ITS Impressions Head CT 07/26/24 09:31 IMPRESSION: No acute intracranial findings. Cervical Spine CT 07/26/24 09:36 IMPRESSION: No acute osseous abnormality cervical spine. Chest X-Ray 07/26/24 09:36 Impression: 1: Possible acute focal pneumonia right lung base versus chronic scarring. 2: Coarse chronic bilateral pleural calcifications, consistent with prior asbestos exposure. Pelvis X-Ray 07/26/24 09:43 IMPRESSION: Lucency at the junction of the right acetabulum with the superior pubic ramus. Possibility of fracture cannot be excluded. CT is advised. Pelvis CT 07/26/24 10:38 IMPRESSION: 1. Degenerative skeletal changes in the lower lumbar spine and pelvis as detailed above. No acute osseous abnormality. Carotid Doppler Study 07/28/24 14:29 IMPRESSION: 1. <50% stenosis in the right internal carotid artery. 2. <50% stenosis in the left internal carotid artery. Labs Labs: Laboratory Tests 08/03/24 07:23 08/03/24 07:23 Calcium 9.0 Magnesium 2.5 H TSH (Reflex) 1.620 Random Cortisol 12.60
--- NOTE | 2024-08-03 10:11 | P.PNIM_ITS ---
Progress Note: A&P Assessment and Plan (1) Dementia: Code(s): F03.90 - Unspecified dementia, unspecified severity, without behavioral disturbance, psychotic disturbance, mood disturbance, and anxiety Status: Acute Assessment and Plan: * Reorient as needed. (2) Pneumonia: Qualifiers: Laterality: right Lung location: lower lobe of lung Pneumonia type: due to unspecified organism Qualified Code(s): J18.9 - Pneumonia, unspecified organism Code(s): J18.9 - Pneumonia, unspecified organism Status: Acute Assessment and Plan: * WBC increased today * Completed Azithromycin and Augmentin. * Duoneb PRN. * Blood cultures no growth to date. (3) Neurologic abnormality: Code(s): R29.818 - Other symptoms and signs involving the nervous system Status: Acute Assessment and Plan: * Episode this morning during therapy. 07/28/24-possible syncopal episode in-hospital * Trop negative * Carotid dopplers: IMPRESSION: 1. <50% stenosis in the right internal carotid artery. 2. <50% stenosis in the left internal carotid artery. * Echocardiogram: There is mildmitral regurgitation. EF 665 (4) Generalized weakness: Code(s): R53.1 - Weakness Status: Acute Assessment and Plan: * PT/OT (5) Acute kidney injury: Code(s): N17.9 - Acute kidney failure, unspecified Status: Acute Assessment and Plan: * Creatinine improved * Encourage oral intake. (6) Hypertension: Code(s): I10 - Essential (primary) hypertension Status: Acute Assessment and Plan: * Orthostatics 08/01/24:. Still positive despite intervention. Neurology consult. (7) Orthostatic hypotension: Code(s): I95.1 - Orthostatic hypotension Status: Acute Assessment and Plan: * 08/01/24: Stop Flomax, Add Midodrine 2.5 mg PO BID and Mestinon 30 mg PO q 12. Per Neurology recommendations. * Cardiology consulted pending recommendations (8) Fall: Code(s): W19.XXXA - Unspecified fall, initial encounter Status: Acute Assessment and Plan: * Bed alarm. * Patient across from nurses station on video. * Fall precautions Time Spent With Patient Time with patient: Greater than 35 minutes Subjective Date/time seen: 08/03/24 10:11 Interval history: 83 year old male that presents to the ER for generalized weakness. is at bedside with no new complaints today. Patient denies being in pain. During PT and OT yesterday the patient became extremely orthostatic and passed out. Will consult Cardiology for help with management orthostatic hypotension Review of Systems Review of Systems: All systems reviewed & are unremarkable except as noted in HPI and below ROS unobtainable: Yes unobtainable due to medical condition Exam Narrative: General: well appearing, appears stated age. HEENT: normocephalic, atraumatic. Mucous membranes moist. EOMI, PERRLA, bilateral sclera anicteric, no conjunctival injection. Neck supple without JVD, lymphadenopathy, or bruit. Respiratory: clear to ascultation bilaterally. No rales/rhonic/wheezes. Cardiovascular: Regular rate and rhythm, normal S1-S2 upon ascultation. No murmu rs, rubs, or clicks. PMI is nondisplaced, capillary refill less than 3 second. Abdomen: Soft, round, no pulsatile masses, nondistended and nontender. No rebound, no guarding. No CVA tenderness, no hepatosplenomegaly. Bowel sounds present to all four quadrants. No high pitch or tinkling sounds, resonant to percussion. Extremities: No cyanosis, clubbing, or edema present. Pulses are palpable 2/2. Active ROM to all four extremities. Neuro: Alert and orientated x 2. PERRLA. Cranial nerves 2-12 intact without focal deficit. Skin: Warm, dry, and intact, without rash, erythema, or lesion. Psych: pleasant, cooperative, normal speech, normal affect, no hallucinations, no dysarthia Objective Data Vital Signs Vital Signs: Vital Signs - 24 hr 08/02/24 10:44 08/02/24 10:44 08/02/24 12:00 Temperature Pulse Rate 72 76 58 L Respiratory Rate Blood Pressure 119/76 76/55 L Pulse Oximetry 100 95 Oxygen Delivery 08/02/24 14:00 08/02/24 16:00 08/02/24 22:00 Temperature 97.2 F L 97.2 F L Pulse Rate 71 71 76 Respiratory Rate 16 18 Blood Pressure 141/81 H Pulse Oximetry 100 100 Oxygen Delivery 08/03/24 00:00 08/03/24 06:00 08/03/24 08:00 Temperature 97.1 F L Pulse Rate 66 65 Respiratory Rate 20 Blood Pressure 192/81 H Pulse Oximetry 99 Oxygen Delivery Room Air 08/03/24 08:14 Temperature Pulse Rate 75 Respiratory Rate Blood Pressure 133/66 Pulse Oximetry 97 Oxygen Delivery Intake/Output Intake/Output: Intake & Output 07/31/24 08/01/24 08/02/24 08/03/24 23:59 23:59 23:59 23:59 Intake Total 440 1270 1270 200 Output Total 1800 3000 1400 350 Balance -1360 -1730 -130 -150 Meds/Results Medications: Active Medications Generic Name Dose Route Start Last Admin Trade Name Freq PRN Reason Stop Dose Admin Acetaminophen 650 mg 07/30/24 07:34 08/01/24 21:27 Acetaminophen 325 Mg Tablet PO 650 mg Q4H PRN Administration Pain Albuterol/Ipratropium 3 ml 07/27/24 17:04 Ipratropium 0.5 Mg/Albuterol Sulfate 2.5 Mg Ampul.Neb 3 Ml INHALATION Q6HRT PRN Shortness Of Breath Or Wheezing Apixaban 5 mg 07/26/24 21:00 08/03/24 08:30 Apixaban 5 Mg Tablet PO 5 mg Q12HR KIESHA Administration Hydralazine HCl 10 mg 07/27/24 16:59 08/03/24 06:11 Hydralazine Hcl 20 Mg/Ml Vial IV PUSH 10 mg Q8H PRN Administration Blood Pressure - High Midodrine 2.5 mg 08/01/24 21:00 08/03/24 08:30 Midodrine Hcl 2.5 Mg Tablet PO 2.5 mg Q12HR KIESHA Administration Multivitamins Therapeutic 1 tablet 07/27/24 09:00 08/03/24 08:30 Multivitamins Therapeutic Tab (*Bkc) PO 1 tablet DAILY KIESHA Administration Pantoprazole Sodium 40 mg 07/26/24 21:00 08/02/24 20:37 Pantoprazole 40 Mg Tablet PO 40 mg HS KIESHA Administration Pyridostigmine [place] 30 mg 08/01/24 21:00 08/03/24 08:30 Pyridostigmine [place] 30 Mg Tablet PO 30 mg Q12HR KIESHA Administration Rosuvastatin Calcium 20 mg 07/26/24 21:00 08/02/24 20:37 Rosuvastatin 20 Mg Tablet PO 20 mg HS KIESHA Administration Radiology Results: ITS Impressions Head CT 07/26/24 09:31 IMPRESSION: No acute intracranial findings. Cervical Spine CT 07/26/24 09:36 IMPRESSION: No acute osseous abnormality cervical spine. Chest X-Ray 07/26/24 09:36 Impression: 1: Possible acute focal pneumonia right lung base versus chronic scarring. 2: Coarse chronic bilateral pleural calcifications, consistent with prior asbestos exposure. Pelvis X-Ray 07/26/24 09:43 IMPRESSION: Lucency at the junction of the right acetabulum with the superior pubic ramus. Possibility of fracture cannot be excluded. CT is advised. Pelvis CT 07/26/24 10:38 IMPRESSION: 1. Degenerative skeletal changes in the lower lumbar spine and pelvis as detailed above. No acute osseous abnormality. Carotid Doppler Study 07/28/24 14:29 IMPRESSION: 1. <50% stenosis in the right internal carotid artery. 2. <50% stenosis in the left internal carotid artery. Labs Labs: Laboratory Results - last 24 hr 08/02/24 08/03/24 22:03 07:23 WBC 10.9 H RBC 4.41 L Hgb 14.6 Hct 44.8 MCV 101.6 H MCH 33.1 MCHC 32.6 RDW 13.3 Plt Count 256 MPV 10.0 Sodium 139 Potassium 3.9 Chloride 105 Carbon Dioxide 28 Anion Gap 6 BUN 28 H Creatinine 1.06 Estim Creat Clear Calc 48 Estimated GFR > 60 Glucose 109 POC Capillary Glucose 174 H Calcium 9.0 Magnesium 2.5 H TSH (Reflex) 1.620 Random Cortisol 12.60 Quality VTE Prophylaxis VTE prophylaxis: pharmacologic ordered
[2024-08-03] MEDS: PANTOPRAZOLE 40 MG TABLET PO (20:40)
[2024-08-03] MEDS: ROSUVASTATIN 20 MG TABLET PO (20:40)
[2024-08-04] VITALS (15 sets, daily range): BP systolic 115–173; BP diastolic 62–92; PULSE 64–88; RESP 16–18; TEMP 36.1–37; O2SAT 97–100
[2024-08-04 07:02] LABS: Hematocrit 41.3 % (42.0-52.0); Hemoglobin 13.1 g/dL (14.0-18.0); Mean Corpuscular HGB Conc 31.7 g/dl (32-36); Mean Corpuscular Hemoglobin 32.5 pg (26-34); Mean Corpuscular Volume 102.5 fl (80-100); Mean Platelet Volume 9.8 fl (7.4-10.4); Platelet Count Result 252 k/mm3 (150-375); Red Blood Count 4.03 M/mm3 (4.6-6.20); Red Cell Distribution Width 13.4 % (11.5-14.5)
[2024-08-04 07:10] LABS: Anion Gap 6 mmol/L (4-12); Blood Urea Nitrogen 26 mg/dL (9-20); Calcium 8.9 mg/dL (8.4-10.2); Carbon Dioxide 30 mmol/L (22-30); Chloride 103 mmol/L (98-107); Estimated CRCL calculation 46 ml/min; Estimated Glomerular Filt Rate > 60; Glucose 106 mg/dL (65-110); Magnesium 2.5 mg/dL (1.6-2.3); Potassium 4.2 mmol/L (3.4-5.0); Sodium 139 mmol/L (137-145)
--- NOTE | 2024-08-04 07:20 | P.CONCA_ITS ---
Assessment and Plan Assessment and plan (1) Orthostatic hypotension: Code(s): I95.1 - Orthostatic hypotension Status: Acute Plan 1. Orthostatic hypotension 2. Dementia 3. BPH 4. MEKA -plenty of fluids -compression stockings -PT/OT -discontinue tamsulosin -agree with midodrine and Mestinon as recommended by Neurology -acceptable systolic blood pressure at rest 150-160 -discussed in detail with patient's , she understood the plan -cardiology will sign off -please call us if there are any questions or concerns History of Present Illness History of Present Illness Consult date/time: 08/04/24 07:20 Reason For Visit: Acute Kidney Injury/Pneumonia Narrative: Petar Marquez is a 83 year old male With history of dementia, BPH on tamsulosin who was found to have orthostatic hypotension. As per his gets dizzy on standing up. His blood pressure which was monitored shows no leak going from 192 systolic 190. Seen by Neurology who recommended discontinuation of tamsulosin; initiation of midodrine and Mestinon Review of Systems 2 Review of Systems: ROS unobtainable: Yes unobtainable due to mental status PMFSH Past Medical History Medical History Atrial fibrillation Impacted cerumen of both ears Dementia Family History Family History Father Hypertension Sibling COPD (chronic obstructive pulmonary disease) Cancer Cerebrovascular accident Heart attack COVID Social History Social History Social History: Caffeine-coffee/soda Smoking status: Former smoker Tobacco type: cigarettes Alcohol intake: never Substance use: never Lack of Transportation: No Lack of Food: Never True Current Housing: I Have Housing Concerned About Future Housing: No Difficulty Paying Gas/Electric Bills: No Difficulty Paying for Meds: No Currently Unemployed: No Education: Trade/Vocational Certificate Difficulty w/ Childcare or Family Care: No Living arrangements: with family Occupation/Education: retired Gender identity (if verbalized by the patient): Male Spiritual care concerns: No Meds Home Medications and Allergies Home Medications ?Medication ?Instructions ?Recorded ?Confirmed ?Type omeprazole 20 mg capsule,delayed 20 mg PO HS 11/26/20 07/26/24 History release rosuvastatin 20 mg tablet 20 mg PO HS 11/26/20 07/26/24 History apixaban 5 mg tablet (Eliquis) 5 mg PO Q12HR 30 days #60 tabs 12/12/20 07/26/24 Rx tamsulosin 0.4 mg capsule 0.4 mg PO HS 09/09/22 07/26/24 History multivitamin (Daily Multi-Vitamin 1 tablet PO DAILY 07/26/24 07/26/24 History tablet) Allergies Allergy/AdvReac Type Severity Reaction Status Date / Time adhesive tape Allergy Itching Verified 07/26/24 14:13 Vital Signs Vital Signs - 24 hr 08/03/24 08:00 08/03/24 08:00 08/03/24 08:14 Temperature Pulse Rate 73 75 Respiratory Rate Blood Pressure 124/59 L 133/66 Pulse Oximetry 99 97 Oxygen Delivery Room Air 08/03/24 10:13 08/03/24 11:04 08/03/24 11:04 Temperature Pulse Rate 69 74 67 Respiratory Rate Blood Pressure 124/56 L 74/55 L Pulse Oximetry 98 99 Oxygen Delivery 08/03/24 12:00 08/03/24 14:00 08/03/24 16:00 Temperature 36.9 C Pulse Rate 62 74 79 Respiratory Rate 18 Blood Pressure 137/98 H Pulse Oximetry 98 Oxygen Delivery 08/03/24 20:00 08/03/24 20:02 08/03/24 20:40 Temperature Pulse Rate 81 79 Respiratory Rate 18 Blood Pressure 159/81 H Pulse Oximetry 98 Oxygen Delivery Room Air 08/03/24 22:00 08/04/24 00:02 08/04/24 04:00 Temperature 36.1 C L Pulse Rate 76 86 88 Respiratory Rate 16 Blood Pressure 136/95 H Pulse Oximetry 98 Oxygen Delivery 08/04/24 06:00 Temperature 36.1 C L Pulse Rate 80 Respiratory Rate 16 Blood Pressure 147/71 H Pulse Oximetry 97 Oxygen Delivery Exam 2 Narrative: General: well appearing, appears stated age. HEENT: normocephalic, atraumatic. Mucous membranes moist. EOMI, PERRLA, bilateral sclera anicteric, no conjunctival injection. Neck supple without JVD, lymphadenopathy, or bruit. Respiratory: clear to ascultation bilaterally. No rales/rhonic/wheezes. Cardiovascular: Regular rate and rhythm, normal S1-S2 upon ascultation. No murmurs, rubs, or clicks. PMI is nondisplaced, capillary refill less than 3 second. Abdomen: Soft, round, no pulsatile masses, nondistended and nontender. No rebound, no guarding. No CVA tenderness, no hepatosplenomegaly. Bowel sounds present to all four quadrants. No high pitch or tinkling sounds, resonant to percussion. Extremities: No cyanosis, clubbing, or edema present. Pulses are palpable 2/2. Active ROM to all four extremities. Neuro: Alert and orientated x 2. PERRLA. Cranial nerves 2-12 intact without focal deficit. Skin: Warm, dry, and intact, without rash, erythema, or lesion. Psych: pleasant, cooperative, normal speech, normal affect, no hallucinations, no dysarthia Const: General: comfortable and no acute distress Resp: Effort & Inspection: normal respiratory effort Auscultation: clear to auscultation bilaterally and diminished lung sounds Cardio: Rate: regular rate Rhythm: regular rhythm Other: Telemetry- SR 64. GI: Auscultation: normal bowel sounds Neuro: Speech: normal speech Extrem: General: no pedal edema Other: No swelling or open areas noted to bilateral knees. No tenderness on palpation. Psych: Mental Status: mental status grossly normal Affect: normal affect Other: Person and place. Results Labs and Meds 08/04/24 06:54 08/04/24 06:54 Lab results: CBC 08/03/24 08/04/24 Range/Units 07:23 06:54 WBC 10.9 H 13.0 H (4.5-10.0) K/mm3 RBC 4.41 L 4.03 L (4.6-6.20) M/mm3 Hgb 14.6 13.1 L (14.0-18.0) g/dL Hct 44.8 41.3 L (42.0-52.0) % Plt Count 256 252 (150-375) k/mm3 Comprehensive Metabolic Panel 08/03/24 08/04/24 Range/Units 07:23 06:54 Sodium 139 139 (137-145) mmol/L Potassium 3.9 4.2 (3.4-5.0) mmol/L Chloride 105 103 (98-107) mmol/L Carbon Dioxide 28 30 (22-30) mmol/L BUN 28 H 26 H (9-20) mg/dL Creatinine 1.06 1.10 (0.7-1.3) mg/dL Glucose 109 106 (65-110) mg/dL Calcium 9.0 8.9 (8.4-10.2) mg/dL Intake and Output 08/03/24 08/03/24 08/04/24 15:59 23:59 07:59 Intake Total 480 240 Output Total 350 800 Balance 480 -110 -800 Intake: Oral 480 240 Output: Catheter Urine 350 800 External/Condom 350 800 Other: # Unmeasured Voids 1 Number of Bowel Movements Today 1 3 1
[2024-08-04] MEDS: pyRIDostigmine bromide 30 MG TABLET PO ×2 (08:33→20:57)
[2024-08-04] MEDS: APIXABAN 5 MG TABLET PO ×2 (08:33→20:56)
[2024-08-04] MEDS: MIDODRINE HCL 2.5 MG TABLET PO ×2 (08:33→20:57)
[2024-08-04] MEDS: MULTIVITAMINS THERAPEUTIC TAB (*BKC) 1 TABLET PO (08:33)
[2024-08-04] MEDS: ACETAMINOPHEN 325 MG TABLET 650 MG PO (08:33)
--- NOTE | 2024-08-04 09:17 | PCNWS ---
Weekly nutritional screen. Patient is tolerating current Heart healthy diet with adequate intake, mostly 75-100%. No weight loss reported. No nutritional needs at this time.
--- NOTE | 2024-08-04 13:11 | P.PNIM_ITS ---
Progress Note: A&P Assessment and Plan (1) Dementia: Code(s): F03.90 - Unspecified dementia, unspecified severity, without behavioral disturbance, psychotic disturbance, mood disturbance, and anxiety Status: Acute Assessment and Plan: * Reorient as needed. (2) Pneumonia: Qualifiers: Laterality: right Lung location: lower lobe of lung Pneumonia type: due to unspecified organism Qualified Code(s): J18.9 - Pneumonia, unspecified organism Code(s): J18.9 - Pneumonia, unspecified organism Status: Acute Assessment and Plan: * WBC upt to 13 today, repeat in AM with CRP & ESR. Repeat Chest x-ray in AM. Also check UA * Completed Azithromycin and Augmentin. * Duoneb PRN. * Blood cultures no growth to date. (3) Neurologic abnormality: Code(s): R29.818 - Other symptoms and signs involving the nervous system Status: Acute Assessment and Plan: * Episode this morning during therapy. 07/28/24-possible syncopal episode in-hospital * Trop negative * Carotid dopplers: IMPRESSION: 1. <50% stenosis in the right internal carotid artery. 2. <50% stenosis in the left internal carotid artery. * Echocardiogram: There is mildmitral regurgitation. EF 665 (4) Generalized weakness: Code(s): R53.1 - Weakness Status: Acute Assessment and Plan: * PT/OT (5) Acute kidney injury: Code(s): N17.9 - Acute kidney failure, unspecified Status: Acute Assessment and Plan: * Creatinine improved, trending up again * Encourage oral intake. * May need additional fluids (6) Hypertension: Code(s): I10 - Essential (primary) hypertension Status: Acute Assessment and Plan: * Orthostatics 08/01/24:. Still positive despite intervention. Neurology consult. (7) Orthostatic hypotension: Code(s): I95.1 - Orthostatic hypotension Status: Acute Assessment and Plan: * 08/01/24: Stop Flomax, Added Midodrine 2.5 mg PO BID and Mestinon 30 mg PO q 12. Per Neurology recommendations. * Cardiology consulted for recommendations (8) Fall: Code(s): W19.XXXA - Unspecified fall, initial encounter Status: Acute Assessment and Plan: * Bed alarm. * Patient across from nurses station on video. * Fall precautions Time Spent With Patient Time: 57 minutes Subjective Date/time seen: 08/04/24 13:11 Interval history: Increasing activity, but very fatigued. Blood pressure 115/92 standing. Patient is a poor historian. WBC and creatinine trending up slowly 83 year old male that presented to the ER for generalized weakness. is at bedside with no new complaints today. Patient denies being in pain. During PT and OT yesterday the patient became extremely orthostatic and passed out. Cardiology consulted for help with management orthostatic hypotension Review of Systems Review of Systems: All systems reviewed & are unremarkable except as noted in HPI and below ROS unobtainable: Yes unobtainable due to medical condition Exam Narrative: General: well appearing, appears stated age. HEENT: normocephalic, atraumatic. Mucous membranes moist. EOMI, PERRLA, bilat eral sclera anicteric, no conjunctival injection. Neck supple without JVD, lymphadenopathy, or bruit. Respiratory: clear to ascultation bilaterally. No rales/rhonic/wheezes. Cardiovascular: Regular rate and rhythm, normal S1-S2 upon ascultation. No murmurs, rubs, or clicks. PMI is nondisplaced, capillary refill less than 3 second. Abdomen: Soft, round, no pulsatile masses, nondistended and nontender. No rebound, no guarding. No CVA tenderness, no hepatosplenomegaly. Bowel sounds present to all four quadrants. No high pitch or tinkling sounds, resonant to percussion. Extremities: No cyanosis, clubbing, or edema present. Pulses are palpable 2/2. Active ROM to all four extremities. Neuro: Alert and orientated x 2. PERRLA. Cranial nerves 2-12 intact without focal deficit. Skin: Warm, dry, and intact, without rash, erythema, or lesion. Psych: pleasant, cooperative, normal speech, normal affect, no hallucinations, no dysarthia Objective Data Vital Signs Vital Signs: Vital Signs - 24 hr 08/03/24 14:00 08/03/24 16:00 08/03/24 20:00 Temperature 98.4 F Pulse Rate 74 79 Respiratory Rate 18 Blood Pressure 137/98 H 159/81 H Pulse Oximetry 98 Oxygen Delivery 08/03/24 20:02 08/03/24 20:40 08/03/24 22:00 Temperature 97.0 F L Pulse Rate 81 79 76 Respiratory Rate 18 16 Blood Pressure 136/95 H Pulse Oximetry 98 98 Oxygen Delivery Room Air 08/04/24 00:02 08/04/24 04:00 08/04/24 06:00 Temperature 96.9 F L Pulse Rate 86 88 80 Respiratory Rate 16 Blood Pressure 147/71 H Pulse Oximetry 97 Oxygen Delivery 08/04/24 08:00 08/04/24 10:21 08/04/24 11:37 Temperature Pulse Rate 85 Respiratory Rate Blood Pressure 161/73 H Pulse Oximetry Oxygen Delivery Room Air 08/04/24 11:38 08/04/24 11:39 08/04/24 12:58 Temperature 98.3 F Pulse Rate 76 Respiratory Rate 18 Blood Pressure 123/66 115/92 H 148/64 H Pulse Oximetry 99 Oxygen Delivery Intake/Output Intake/Output: Intake & Output 08/01/24 08/02/24 08/03/24 08/04/24 23:59 23:59 23:59 23:59 Intake Total 1270 1270 920 240 Output Total 3000 1400 700 800 Balance -1730 -130 220 -560 Meds/Results Medications: Active Medications Generic Name Dose Route Start Last Admin Trade Name Freq PRN Reason Stop Dose Admin Acetaminophen 650 mg 07/30/24 07:34 08/04/24 08:33 Acetaminophen 325 Mg Tablet PO 650 mg Q4H PRN Administration Pain Albuterol/Ipratropium 3 ml 07/27/24 17:04 Ipratropium 0.5 Mg/Albuterol Sulfate 2.5 Mg Ampul.Neb 3 Ml INHALATION Q6HRT PRN Shortness Of Breath Or Wheezing Apixaban 5 mg 07/26/24 21:00 08/04/24 08:33 Apixaban 5 Mg Tablet PO 5 mg Q12HR KIESHA Administration Hydralazine HCl 10 mg 07/27/24 16:59 08/03/24 06:11 Hydralazine Hcl 20 Mg/Ml Vial IV PUSH 10 mg Q8H PRN Administration Blood Pressure - High Midodrine 2.5 mg 08/01/24 21:00 08/04/24 08:33 Midodrine Hcl 2.5 Mg Tablet PO 2.5 mg Q12HR KIESHA Administration Multivitamins Therapeutic 1 tablet 07/27/24 09:00 08/04/24 08:33 Multivitamins Therapeutic Tab (*Bkc) PO 1 tablet DAILY KIESHA Administration Pantoprazole Sodium 40 mg 07/26/24 21:00 08/03/24 20:40 Pantoprazole 40 Mg Tablet PO 40 mg HS KIESHA Administration Pyridostigmine [place] 30 mg 08/01/24 21:00 08/04/24 08:33 Pyridostigmine [place] 30 Mg Tablet PO 30 mg Q12HR KIESHA Administration Rosuvastatin Calcium 20 mg 07/26/24 21:00 08/03/24 20:40 Rosuvastatin 20 Mg Tablet PO 20 mg HS KIESHA Administration Radiology Results: ITS Impressions Head CT 07/26/24 09:31 IMPRESSION: No acute intracranial findings. Cervical Spine CT 07/26/24 09:36 IMPRESSION: No acute osseous abnormality cervical spine. Chest X-Ray 07/26/24 09:36 Impression: 1: Possible acute focal pneumonia right lung base versus chronic scarring. 2: Coarse chronic bilateral pleural calcifications, consistent with prior asbestos exposure. Pelvis X-Ray 07/26/24 09:43 IMPRESSION: Lucency at the junction of the right acetabulum with the superior pubic ramus. Possibility of fracture cannot be excluded. CT is advised. Pelvis CT 07/26/24 10:38 IMPRESSION: 1. Degenerative skeletal changes in the lower lumbar spine and pelvis as detailed above. No acute osseous abnormality. Carotid Doppler Study 07/28/24 14:29 IMPRESSION: 1. <50% stenosis in the right internal carotid artery. 2. <50% stenosis in the left internal carotid artery. Labs Labs: Laboratory Results - last 24 hr 08/04/24 06:54 WBC 13.0 H RBC 4.03 L Hgb 13.1 L Hct 41.3 L MCV 102.5 H MCH 32.5 MCHC 31.7 L RDW 13.4 Plt Count 252 MPV 9.8 Sodium 139 Potassium 4.2 Chloride 103 Carbon Dioxide 30 Anion Gap 6 BUN 26 H Creatinine 1.10 Estim Creat Clear Calc 46 Estimated GFR > 60 Glucose 106 Calcium 8.9 Magnesium 2.5 H Quality VTE Prophylaxis VTE prophylaxis: pharmacologic ordered Hospitalist [facility] Advance Care Plan I have confirmed that the patient's Advanced Care Plan is present, code status is documented, or surrogate decision maker is listed in patient medical record.: Yes Medication Reconciliation I have utilized all available resources to obtain, update and review the patients current medications (includes all prescriptions, OTC, herbals, cannabis, and nutritional supplements).: Yes
[2024-08-04 17:47] LABS: Add Urine Microscopic? YES; Appearance Urine Cloudy (Clear); Bacteria Urine None Seen /hpf; Bilirubin Urine Negative (Negative); Blood Urine Negative (Negative); Budding Yeast Urine Present /hpf; Calcium Oxalate Crystals Urine Present /hpf; Color Urine Yellow (Yellow); Glucose Urine UA Negative (Negative); Ketones Urine Trace mg/dL (Negative); Leukocyte Esterase Ur Trace LEU/UL (Negative); Need Manual Microscopic Reviewed; Nitrate Urine Negative (Negative); Non Pathogenic Casts 0-2; Protein Urine 1+ mg/dL (Negative); RBC Urine 21-50 /hpf (0-2); Specific Grav Ur 1.026 (1.001-1.035); Squamous Epithelial Cell Urine None Seen /hpf (Few); WBC Urine 0-5 /hpf (0-3); pH Urine 6.5 (5.0-9.0)
[2024-08-04] MEDS: ROSUVASTATIN 20 MG TABLET PO (20:57)
[2024-08-04] MEDS: PANTOPRAZOLE 40 MG TABLET PO (20:57)
[2024-08-05] VITALS (7 sets, daily range): BP systolic 98–203; BP diastolic 63–94; PULSE 63–77; RESP 16; TEMP 36.4–36.9; O2SAT 97–100
[2024-08-05 06:48] LABS: Basophils Absolute Auto 0.1 K/mm3 (0.0-0.1); Basophils Percent Auto 0.7 % (0.2-1.2); Eosinophils Absolute Auto 0.6 K/mm3 (0-0.3); Eosinophils Percent Auto 6.2 % (0-4.4); Hematocrit 40.8 % (42.0-52.0); Hemoglobin 13.2 g/dL (14.0-18.0); Immature Granulocyte Absolute 0.03 K/mm3 (0.00-0.031); Immature Granulocyte Percent A 0.3 % (0-0.5); Lymphocytes Absolute Auto 1.14 K/mm3 (0.9-3.2); Lymphocytes Percent Auto 11.2 % (18.3-44.2); Mean Corpuscular HGB Conc 32.4 g/dl (32-36); Mean Corpuscular Hemoglobin 32.9 pg (26-34); Mean Corpuscular Volume 101.7 fl (80-100); Mean Platelet Volume 9.5 fl (7.4-10.4); Monocytes Absolute Auto 1.1 K/mm3 (0.1-0.6); Monocytes Percent Auto 10.4 % (2.6-8.5); Neutrophils Absolute Auto 7.3 K/mm3 (1.3-6.7); Neutrophils Percent Auto 71.2 % (45.5-73.1); Platelet Count Result 239 k/mm3 (150-375); Red Blood Count 4.01 M/mm3 (4.6-6.20); Red Cell Distribution Width 13.5 % (11.5-14.5); White Blood Count 10.2 K/mm3 (4.5-10.0)
[2024-08-05 07:03] LABS: Anion Gap 4 mmol/L (4-12); Blood Urea Nitrogen 23 mg/dL (9-20); CRP 4.7 mg/dL (<1.0); Calcium 8.6 mg/dL (8.4-10.2); Carbon Dioxide 28 mmol/L (22-30); Chloride 105 mmol/L (98-107); Estimated CRCL calculation 49 ml/min; Estimated Glomerular Filt Rate > 60; Glucose 96 mg/dL (65-110); Potassium 4.3 mmol/L (3.4-5.0); Sodium 137 mmol/L (137-145)
[2024-08-05 07:21] LABS: Erythrocyte Sedimentation Rate 50 mm/hr (0-20)
[2024-08-05] MEDS: MULTIVITAMINS THERAPEUTIC TAB (*BKC) 1 TABLET PO (10:11)
[2024-08-05] MEDS: MIDODRINE HCL 2.5 MG TABLET PO ×2 (10:11→21:40)
[2024-08-05] MEDS: APIXABAN 5 MG TABLET PO ×2 (10:11→21:40)
[2024-08-05] MEDS: pyRIDostigmine bromide 30 MG TABLET PO ×2 (10:15→21:40)
--- NOTE | 2024-08-05 17:11 | P.PNIM_ITS ---
Progress Note: A&P Assessment and Plan (1) Dementia: Code(s): F03.90 - Unspecified dementia, unspecified severity, without behavioral disturbance, psychotic disturbance, mood disturbance, and anxiety Status: Acute Assessment and Plan: * Reorient as needed. (2) Pneumonia: Qualifiers: Laterality: right Lung location: lower lobe of lung Pneumonia type: due to unspecified organism Qualified Code(s): J18.9 - Pneumonia, unspecified organism Code(s): J18.9 - Pneumonia, unspecified organism Status: Acute Assessment and Plan: * WBC upt to 13 today, repeat in AM with CRP & ESR. Repeat Chest x-ray in AM. Also check UA * Completed Azithromycin and Augmentin. * Duoneb PRN. * Blood cultures no growth to date. * Follow up xray 08/05 Stable appearance of calcified pleural plaques in the bilateral lower lung zones consistent with prior asbestos exposure. No definitive acute cardiopulmonary disease. (3) Neurologic abnormality: Code(s): R29.818 - Other symptoms and signs involving the nervous system Status: Acute Assessment and Plan: * Episode this morning during therapy. 07/28/24-possible syncopal episode in-hospital * Trop negative * Carotid dopplers: IMPRESSION: 1. <50% stenosis in the right internal carotid artery. 2. <50% stenosis in the left internal carotid artery. * Echocardiogram: There is mildmitral regurgitation. EF 665 (4) Generalized weakness: Code(s): R53.1 - Weakness Status: Acute Assessment and Plan: * PT/OT (5) Acute kidney injury: Code(s): N17.9 - Acute kidney failure, unspecified Status: Acute Assessment and Plan: * Creatinine improved, trending up again * Encourage oral intake. * May need additional fluids (6) Hypertension: Code(s): I10 - Essential (primary) hypertension Status: Acute Assessment and Plan: * Orthostatics 08/01/24:. Still positive despite intervention. Neurology consul t. (7) Orthostatic hypotension: Code(s): I95.1 - Orthostatic hypotension Status: Acute Assessment and Plan: * 08/01/24: Stop Flomax, Added Midodrine 2.5 mg PO BID and Mestinon 30 mg PO q 12. Per Neurology recommendations. * Cardiology consulted for recommendations (8) Fall: Code(s): W19.XXXA - Unspecified fall, initial encounter Status: Acute Assessment and Plan: * Bed alarm. * Patient across from nurses station on video. * Fall precautions Time Spent With Patient Time: 59 minutes Subjective Date/time seen: 08/05/24 2:14pm Interval history: Increasing activity, but fatigued. Blood pressure about the same with current meds. Patient is a poor historian. WBC and creatinine improved today and follow up x-ray clear. UA negative 83 year old male that presented to the ER for generalized weakness, found to have significant orthostatic hypotension Cardiology consulted for help with management orthostatic hypotension Likely discharge soon. Case coordination starting auth Review of Systems Review of Systems: All systems reviewed & are unremarkable except as noted in HPI and below ROS unobtainable: Yes unobtainable due to medical condition Exam Narrative: General: well appearing, appears stated age. HEENT: normocephalic, atraumatic. Mucous membranes moist. EOMI, PERRLA, bilater al sclera anicteric, no conjunctival injection. Neck supple without JVD, lymphadenopathy, or bruit. Respiratory: clear to ascultation bilaterally. No rales/rhonic/wheezes. Cardiovascular: Regular rate and rhythm, normal S1-S2 upon ascultation. No murmurs, rubs, or clicks. PMI is nondisplaced, capillary refill less than 3 second. Abdomen: Soft, round, no pulsatile masses, nondistended and nontender. No rebound, no guarding. No CVA tenderness, no hepatosplenomegaly. Bowel sounds present to all four quadrants. No high pitch or tinkling sounds, resonant to percussion. Extremities: No cyanosis, clubbing, or edema present. Pulses are palpable 2/2. Active ROM to all four extremities. Neuro: Alert and orientated x 1. PERRLA. Cranial nerves 2-12 intact without focal deficit. Skin: Warm, dry, and intact, without rash, erythema, or lesion. Psych: pleasant, cooperative, normal speech, normal affect, no hallucinations, no dysarthia Objective Data Vital Signs Vital Signs: Vital Signs - 24 hr 08/04/24 20:00 08/04/24 20:02 08/04/24 20:50 Temperature 98.6 F Pulse Rate 73 87 73 Respiratory Rate 16 16 Blood Pressure 173/62 H Pulse Oximetry 100 100 Oxygen Delivery Room Air 08/04/24 22:00 08/05/24 00:02 08/05/24 04:00 Temperature 98.6 F Pulse Rate 73 72 63 Respiratory Rate 16 Blood Pressure 173/62 H Pulse Oximetry 100 Oxygen Delivery 08/05/24 06:00 08/05/24 08:00 08/05/24 11:34 Temperature 98.5 F Pulse Rate 63 66 Respiratory Rate 16 Blood Pressure 161/68 H 203/94 H Pulse Oximetry 100 100 Oxygen Delivery Room Air 08/05/24 11:34 08/05/24 11:34 08/05/24 14:00 Temperature 97.6 F Pulse Rate 72 77 65 Respiratory Rate 16 Blood Pressure 157/78 H 98/63 L 139/64 Pulse Oximetry 97 100 100 Oxygen Delivery Intake/Output Intake/Output: Intake & Output 08/02/24 08/03/24 08/04/24 08/05/24 23:59 23:59 23:59 23:59 Intake Total 1270 920 960 520 Output Total 8181 900 7872 300 Balance -130 220 -91 220 Meds/Results Medications: Active Medications Generic Name Dose Route Start Last Admin Trade Name Freq PRN Reason Stop Dose Admin Acetaminophen 650 mg 07/30/24 07:34 08/04/24 08:33 Acetaminophen 325 Mg Tablet PO 650 mg Q4H PRN Administration Pain Albuterol/Ipratropium 3 ml 07/27/24 17:04 Ipratropium 0.5 Mg/Albuterol Sulfate 2.5 Mg Ampul.Neb 3 Ml INHALATION Q6HRT PRN Shortness Of Breath Or Wheezing Apixaban 5 mg 07/26/24 21:00 08/05/24 10:11 Apixaban 5 Mg Tablet PO 5 mg Q12HR KIESHA Administration Hydralazine HCl 10 mg 07/27/24 16:59 08/03/24 06:11 Hydralazine Hcl 20 Mg/Ml Vial IV PUSH 10 mg Q8H PRN Administration Blood Pressure - High Midodrine 2.5 mg 08/01/24 21:00 08/05/24 10:11 Midodrine Hcl 2.5 Mg Tablet PO 2.5 mg Q12HR KIESHA Administration Multivitamins Therapeutic 1 tablet 07/27/24 09:00 08/05/24 10:11 Multivitamins Therapeutic Tab (*Bkc) PO 1 tablet DAILY KIESHA Administration Pantoprazole Sodium 40 mg 07/26/24 21:00 08/04/24 20:57 Pantoprazole 40 Mg Tablet PO 40 mg HS KIESHA Administration Pyridostigmine [place] 30 mg 08/01/24 21:00 08/05/24 10:15 Pyridostigmine [place] 30 Mg Tablet PO 30 mg Q12HR KIESHA Administration Rosuvastatin Calcium 20 mg 07/26/24 21:00 08/04/24 20:57 Rosuvastatin 20 Mg Tablet PO 20 mg HS KIESHA Administration Radiology Results: ITS Impressions Head CT 07/26/24 09:31 IMPRESSION: No acute intracranial findings. Cervical Spine CT 07/26/24 09:36 IMPRESSION: No acute osseous abnormality cervical spine. Pelvis X-Ray 07/26/24 09:43 IMPRESSION: Lucency at the junction of the right acetabulum with the superior pubic ramus. Possibility of fracture cannot be excluded. CT is advised. Pelvis CT 07/26/24 10:38 IMPRESSION: 1. Degenerative skeletal changes in the lower lumbar spine and pelvis as detailed above. No acute osseous abnormality. Carotid Doppler Study 07/28/24 14:29 IMPRESSION: 1. <50% stenosis in the right internal carotid artery. 2. <50% stenosis in the left internal carotid artery. Chest X-Ray 08/05/24 08:48 IMPRESSION: 1. Stable appearance of calcified pleural plaques in the bilateral lower lung zo giovanna consistent with prior asbestos exposure. No definitive acute cardiopulmonary disease. Labs Labs: Laboratory Results - last 24 hr 08/04/24 08/05/24 17:29 06:41 WBC 10.2 H RBC 4.01 L Hgb 13.2 L Hct 40.8 L MCV 101.7 H MCH 32.9 MCHC 32.4 RDW 13.5 Plt Count 239 MPV 9.5 Immature Gran % (Auto) 0.3 Neut % (Auto) 71.2 Lymph % (Auto) 11.2 L Grand % (Auto) 10.4 H Eos % (Auto) 6.2 H Baso % (Auto) 0.7 Lymph # (Auto) 1.14 Grand # (Auto) 1.1 H Eos # (Auto) 0.6 H Baso # (Auto) 0.1 Abs Immat Gran (auto) 0.03 Absolute Neuts (auto) 7.3 H Absolute Nucleated RBC 0.000 Nucleated RBC % 0.0 ESR 50 H Sodium 137 Potassium 4.3 Chloride 105 Carbon Dioxide 28 Anion Gap 4 BUN 23 H Creatinine 1.05 Estim Creat Clear Calc 49 Estimated GFR > 60 Glucose 96 Calcium 8.6 C-Reactive Protein 4.7 H Urine Color Yellow Urine Appearance Cloudy H Urine pH 6.5 Ur Specific [place] 1.026 Urine Protein 1+ H Urine Glucose (UA) Negative Urine Ketones Trace H Ur Blood (Man) Negative Urine Nitrate Negative Urine Bilirubin Negative Urine Urobilinogen 1.0 Add Ur Microanalysis Reviewed Leukocyte Esterase Rfl Trace H Urine RBC 21-50 H Urine WBC 0-5 Ur Squamous Epith Cells None seen Calcium Oxalate Crystal Present Urine Bacteria None seen Urine Casts 0-2 Urine Yeast (Budding) Present H Quality VTE Prophylaxis VTE prophylaxis: pharmacologic ordered Hospitalist [facility] Advance Care Plan I have confirmed that the patient's Advanced Care Plan is present, code status is documented, or surrogate decision maker is listed in patient medical record.: Yes Medication Reconciliation I have utilized all available resources to obtain, update and review the patients current medications (includes all prescriptions, OTC, herbals, cannabis, and nutritional supplements).: Yes
[2024-08-05] MEDS: PANTOPRAZOLE 40 MG TABLET PO (21:40)
[2024-08-05] MEDS: ROSUVASTATIN 20 MG TABLET PO (21:40)
[2024-08-06 04:23] VITALS: BP 166/92; PULSE 70; RESP 16; TEMP 36.3; O2SAT 100
[2024-08-06] MEDS: APIXABAN 5 MG TABLET PO ×2 (08:43→21:53)
[2024-08-06] MEDS: pyRIDostigmine bromide 30 MG TABLET PO ×2 (08:43→21:53)
[2024-08-06] MEDS: MIDODRINE HCL 2.5 MG TABLET PO ×2 (08:43→21:53)
[2024-08-06] MEDS: MULTIVITAMINS THERAPEUTIC TAB (*BKC) 1 TABLET PO (08:43)
--- NOTE | 2024-08-06 13:54 | P.PNIM_ITS ---
Progress Note: A&P Assessment and Plan (1) Dementia: Code(s): F03.90 - Unspecified dementia, unspecified severity, without behavioral disturbance, psychotic disturbance, mood disturbance, and anxiety Status: Acute Assessment and Plan: * Reorient as needed. (2) Pneumonia: Qualifiers: Laterality: right Lung location: lower lobe of lung Pneumonia type: due to unspecified organism Qualified Code(s): J18.9 - Pneumonia, unspecified organism Code(s): J18.9 - Pneumonia, unspecified organism Status: Acute Assessment and Plan: * 08/06 WBC 10.2k * Completed Azithromycin and Augmentin. * Duoneb PRN. * Blood cultures no growth to date. * Follow up xray 08/05 Stable appearance of calcified pleural plaques in the bilateral lower lung zones consistent with prior asbestos exposure. No definitive acute cardiopulmonary disease. (3) Neurologic abnormality: Code(s): R29.818 - Other symptoms and signs involving the nervous system Status: Acute Assessment and Plan: 07/28/24-possible syncopal episode in-hospital * Trop negative * Carotid dopplers: IMPRESSION: 1. <50% stenosis in the right internal carotid artery. 2. <50% stenosis in the left internal carotid artery. * Echocardiogram: There is mildmitral regurgitation. EF 665 (4) Generalized weakness: Code(s): R53.1 - Weakness Status: Acute Assessment and Plan: * PT/OT (5) Acute kidney injury: Code(s): N17.9 - Acute kidney failure, unspecified Status: Acute Assessment and Plan: * Creatinine 08/05 1.05 (6) Hypertension: Code(s): I10 - Essential (primary) hypertension Status: Acute Assessment and Plan: * 08/05 98/63 standing * 08/06 166/92 supine (7) Orthostatic hypotension: Code(s): I95.1 - Orthostatic hypotension Status: Acute Assessment and Plan: * 08/01/24: Stop Flomax, Added Midodrine 2.5 mg PO BID and Mestinon 30 mg PO q 12. Per Neurology recommendations. * Cardiology consulted as well (8) Fall: Code(s): W19.XXXA - Unspecified fall, initial encounter Status: Acute Assessment and Plan: * Bed alarm. * Patient across from nurses station on video. * Fall precautions Subjective Date/time seen: 08/06/24 13:54 Interval history: Increasing activity, but fatigued. Blood pressure about the same with current meds. Patient is a poor historian. 83 year old male that presented to the ER for generalized weakness, found to have significant orthostatic hypotension Cardiology consulted for help with management orthostatic hypotension Likely discharge soon. Case coordination starting auth Review of Systems Review of Systems: ROS unobtainable: Yes unobtainable due to medical condition Exam Narrative: General: well appearing, appears stated age. HEENT: normocephalic, atraumatic. Mucous membranes moist. EOMI, PERRLA, bilateral sclera anicteric, no conjunctival injection. Neck supple without JVD, lymphadenopathy, or bruit. Respiratory: clear to auscultation bilaterally. No rales/rhonchi/wheezes. Cardiovascular: Regular rate and rhythm, normal S1-S2 upon ascultation. No murmurs, rubs, or clicks. PMI is nondisplaced Abdomen: Soft, round, no pulsatile masses, nondistended and nontender. No rebound, no guarding. . Bowel sounds present to all four quadrants. No high pitch or tinkling sounds. Extremities: No cyanosis, clubbing, or edema present. Pulses are palpable 2/2. Active ROM to all four extremities. Neuro: Alert and orientated x 1. PERRLA. Cranial nerves 2-12 intact without focal deficit. Skin: Warm, dry, and intact, without rash, erythema, or lesion. Psych: pleasant, cooperative; alert, oriented to person only. Objective Data Vital Signs Vital Signs: Vital Signs - 24 hr 08/05/24 14:00 08/05/24 20:00 08/05/24 21:17 Temperature 97.6 F 97.6 F Pulse Rate 65 67 67 Respiratory Rate 16 16 16 Blood Pressure 139/64 154/74 H Pulse Oximetry 100 97 97 Oxygen Delivery Room Air 08/06/24 04:23 Temperature 97.3 F L Pulse Rate 70 Respiratory Rate 16 Blood Pressure 166/92 H Pulse Oximetry 100 Oxygen Delivery Intake/Output Intake/Output: Intake & Output 08/03/24 08/04/24 08/05/24 08/06/24 23:59 23:59 23:59 23:59 Intake Total 920 960 660 550 Output Total 700 1051 800 425 Balance 220 -91 -140 125 Meds/Results Medications: Active Medications Generic Name Dose Route Start Last Admin Trade Name Freq PRN Reason Stop Dose Admin Acetaminophen 650 mg 07/30/24 07:34 08/04/24 08:33 Acetaminophen 325 Mg Tablet PO 650 mg Q4H PRN Administration Pain Albuterol/Ipratropium 3 ml 07/27/24 17:04 Ipratropium 0.5 Mg/Albuterol Sulfate 2.5 Mg Ampul.Neb 3 Ml INHALATION Q6HRT PRN Shortness Of Breath Or Wheezing Apixaban 5 mg 07/26/24 21:00 08/06/24 08:43 Apixaban 5 Mg Tablet PO 5 mg Q12HR KIESHA Administration Hydralazine HCl 10 mg 07/27/24 16:59 08/03/24 06:11 Hydralazine Hcl 20 Mg/Ml Vial IV PUSH 10 mg Q8H PRN Administration Blood Pressure - High Midodrine 2.5 mg 08/01/24 21:00 08/06/24 08:43 Midodrine Hcl 2.5 Mg Tablet PO 2.5 mg Q12HR KIESHA Administration Multivitamins Therapeutic 1 tablet 07/27/24 09:00 08/06/24 08:43 Multivitamins Therapeutic Tab (*Bkc) PO 1 tablet DAILY KIESHA Administration Pantoprazole Sodium 40 mg 07/26/24 21:00 08/05/24 21:40 Pantoprazole 40 Mg Tablet PO 40 mg HS KIESHA Administration Pyridostigmine [place] 30 mg 08/01/24 21:00 08/06/24 08:43 Pyridostigmine [place] 30 Mg Tablet PO 30 mg Q12HR KIESHA Administration Rosuvastatin Calcium 20 mg 07/26/24 21:00 08/05/24 21:40 Rosuvastatin 20 Mg Tablet PO 20 mg HS KIESHA Administration Radiology Results: ITS Impressions Head CT 07/26/24 09:31 IMPRESSION: No acute intracranial findings. Cervical Spine CT 07/26/24 09:36 IMPRESSION: No acute osseous abnormality cervical spine. Pelvis X-Ray 07/26/24 09:43 IMPRESSION: Lucency at the junction of the right acetabulum with the superior pubic ramus. Possibility of fracture cannot be excluded. CT is advised. Pelvis CT 07/26/24 10:38 IMPRESSION: 1. Degenerative skeletal changes in the lower lumbar spine and pelvis as detailed above. No acute osseous abnormality. Carotid Doppler Study 07/28/24 14:29 IMPRESSION: 1. <50% stenosis in the right internal carotid artery. 2. <50% stenosis in the left internal carotid artery. Chest X-Ray 08/05/24 08:48 IMPRESSION: 1. Stable appearance of calcified pleural plaques in the bilateral lower lung zones consistent with prior asbestos exposure. No definitive acute cardiopulmonary disease.
[2024-08-06 14:00] VITALS: BP 109/57; BP 153/81; BP 200/83; PULSE 92; RESP 20; TEMP 36.4; O2SAT 93
[2024-08-06 14:43] VITALS: BP 129/69; BP 159/86; BP 164/88
--- NOTE | 2024-08-06 16:00 | PC.NURSE ---
pt's requested that all four bed rails be up on the pt's bed to keep him from getting hurt. All four bed rails up per pt's request.
[2024-08-06 20:00] VITALS: BP 135/73
[2024-08-06] MEDS: ROSUVASTATIN 20 MG TABLET PO (21:53)
[2024-08-06] MEDS: PANTOPRAZOLE 40 MG TABLET PO (21:53)
[2024-08-06 22:00] VITALS: BP 129/64; PULSE 90; RESP 20; TEMP 36.4; O2SAT 92
[2024-08-07] VITALS (7 sets, daily range): BP systolic 77–166; BP diastolic 54–87; PULSE 58–76; RESP 16–20; TEMP 36.4–36.9; O2SAT 96–98
[2024-08-07] MEDS: APIXABAN 5 MG TABLET PO ×2 (09:50→20:48)
[2024-08-07] MEDS: MIDODRINE HCL 2.5 MG TABLET PO ×2 (09:50→20:48)
[2024-08-07] MEDS: MULTIVITAMINS THERAPEUTIC TAB (*BKC) 1 TABLET PO (09:50)
[2024-08-07] MEDS: pyRIDostigmine bromide 30 MG TABLET PO ×2 (09:50→20:48)
--- NOTE | 2024-08-07 12:09 | P.PNIM_ITS ---
Progress Note: A&P Assessment and Plan (1) Dementia: Code(s): F03.90 - Unspecified dementia, unspecified severity, without behavioral disturbance, psychotic disturbance, mood disturbance, and anxiety Status: Acute Assessment and Plan: * 08/07 Discussed with that he will need to participate in rehab in order to return home. (2) Pneumonia: Qualifiers: Laterality: right Lung location: lower lobe of lung Pneumonia type: due to unspecified organism Qualified Code(s): J18.9 - Pneumonia, unspecified organism Code(s): J18.9 - Pneumonia, unspecified organism Status: Acute Assessment and Plan: * 08/06 WBC 10.2k * Completed Azithromycin and Augmentin. * Duoneb PRN. * Blood cultures no growth to date. * Follow up xray 08/05 Stable appearance of calcified pleural plaques in the bilateral lower lung zones consistent with prior asbestos exposure. No definitive acute cardiopulmonary disease. (3) Neurologic abnormality: Code(s): R29.818 - Other symptoms and signs involving the nervous system Status: Acute Assessment and Plan: 07/28/24-possible syncopal episode in-hospital * Trop negative * Carotid dopplers: IMPRESSION: 1. <50% stenosis in the right internal carotid artery. 2. <50% stenosis in the left internal carotid artery. * Echocardiogram: There is mildmitral regurgitation. EF 65% * No further episodes (4) Generalized weakness: Code(s): R53.1 - Weakness Status: Acute Assessment and Plan: * PT/OT (5) Acute kidney injury: Code(s): N17.9 - Acute kidney failure, unspecified Status: Acute Assessment and Plan: * Creatinine 08/05 1.05 (6) Hypertension: Code(s): I10 - Essential (primary) hypertension Status: Acute Assessment and Plan: * 08/05 98/63 standing * 08/06 166/92 supine, 135/73 standing * 08/07 166/76 supine (7) Orthostatic hypotension: Code(s): I95.1 - Orthostatic hypotension Status: Acute Assessment and Plan: * 08/01/24: Stop Flomax, Added Midodrine 2.5 mg PO BID and Mestinon 30 mg PO q 12. Per Neurology recommendations. * Cardiology consulted (8) Fall: Code(s): W19.XXXA - Unspecified fall, initial encounter Status: Acute Assessment and Plan: * Bed alarm. * Patient across from nurses station on video. * Fall precautions Subjective Date/time seen: 08/07/24 12:09 Interval history: 83-year-old gentleman who was diagnosed with dementia about 5 years ago was admitted due to general so and found to have orthostatic hypotension. He has tolerated medication and physical therapy. He is tolerating a soft diet. His is at bedside and they are awaiting insurance approval for transfer to [facility] for [facility] rehab. Review of Systems Review of Systems: ROS unobtainable: Yes unobtainable due to medical condition Exam Narrative: General: well appearing, appears stated age. HEENT: normocephalic, atraumatic. Mucous membranes moist. EOMI, PERRLA, bilat eral sclera anicteric, no conjunctival injection. Neck supple without JVD, lymphadenopathy, or bruit. Respiratory: clear to auscultation bilaterally. No rales/rhonchi/wheezes. Cardiovascular: Regular rate and rhythm, normal S1-S2 upon ascultation. No murmurs, rubs, or clicks. PMI is nondisplaced Abdomen: Soft, round, no pulsatile masses, nondistended and nontender. No rebound, no guarding. . Bowel sounds present to all four quadrants. Extremities: No cyanosis, clubbing, or edema present. Active ROM to all four extremities. Neuro: Alert and orientated x 1. PERRLA. Cranial nerves 2-12 intact without focal deficit. Skin: Warm, dry, and intact, without rash, erythema, or lesion. Psych: pleasant, cooperative; alert, oriented to person only. Objective Data Vital Signs Vital Signs: Vital Signs - 24 hr 08/06/24 14:00 08/06/24 14:00 08/06/24 14:00 Temperature 97.6 F Pulse Rate 92 Respiratory Rate 20 Blood Pressure 200/83 H 153/81 H 109/57 L Pulse Oximetry 93 Oxygen Delivery 08/06/24 14:43 08/06/24 14:43 08/06/24 14:43 Temperature Pulse Rate Respiratory Rate Blood Pressure 164/88 H 159/86 H 129/69 Pulse Oximetry Oxygen Delivery 08/06/24 20:00 08/06/24 22:00 08/07/24 06:00 Temperature 97.5 F L 97.8 F Pulse Rate 90 72 Respiratory Rate 20 20 Blood Pressure 135/73 129/64 166/76 H Pulse Oximetry 92 96 Oxygen Delivery 08/07/24 08:00 Temperature Pulse Rate Respiratory Rate Blood Pressure Pulse Oximetry Oxygen Delivery Room Air Intake/Output Intake/Output: Intake & Output 08/04/24 08/05/24 08/06/24 08/07/24 23:59 23:59 23:59 23:59 Intake Total 003 438 5615 480 Output Total 1051 800 625 200 Balance -91 -140 1615 280 Meds/Results Medications: Active Medications Generic Name Dose Route Start Last Admin Trade Name Freq PRN Reason Stop Dose Admin Acetaminophen 650 mg 07/30/24 07:34 08/04/24 08:33 Acetaminophen 325 Mg Tablet PO 650 mg Q4H PRN Administration Pain Albuterol/Ipratropium 3 ml 07/27/24 17:04 Ipratropium 0.5 Mg/Albuterol Sulfate 2.5 Mg Ampul.Neb 3 Ml INHALATION Q6HRT PRN Shortness Of Breath Or Wheezing Apixaban 5 mg 07/26/24 21:00 08/07/24 09:50 Apixaban 5 Mg Tablet PO 5 mg Q12HR KIESHA Administration Hydralazine HCl 10 mg 07/27/24 16:59 08/03/24 06:11 Hydralazine Hcl 20 Mg/Ml Vial IV PUSH 10 mg Q8H PRN Administration Blood Pressure - High Midodrine 2.5 mg 08/01/24 21:00 08/07/24 09:50 Midodrine Hcl 2.5 Mg Tablet PO 2.5 mg Q12HR KIESHA Administration Multivitamins Therapeutic 1 tablet 07/27/24 09:00 08/07/24 09:50 Multivitamins Therapeutic Tab (*Bkc) PO 1 tablet DAILY KIESHA Administration Pantoprazole Sodium 40 mg 07/26/24 21:00 08/06/24 21:53 Pantoprazole 40 Mg Tablet PO 40 mg HS KIESHA Administration Pyridostigmine [place] 30 mg 08/01/24 21:00 08/07/24 09:50 Pyridostigmine [place] 30 Mg Tablet PO 30 mg Q12HR KIESHA Administration Rosuvastatin Calcium 20 mg 07/26/24 21:00 08/06/24 21:53 Rosuvastatin 20 Mg Tablet PO 20 mg HS KIESHA Administration Radiology Results: ITS Impressions Head CT 07/26/24 09:31 IMPRESSION: No acute intracranial findings. Cervical Spine CT 07/26/24 09:36 IMPRESSION: No acute osseous abnormality cervical spine. Pelvis X-Ray 07/26/24 09:43 IMPRESSION: Lucency at the junction of the right acetabulum with the superior pubic ramus. Possibility of fracture cannot be excluded. CT is advised. Pelvis CT 07/26/24 10:38 IMPRESSION: 1. Degenerative skeletal changes in the lower lumbar spine and pelvis as detailed above. No acute osseous abnormality. Carotid Doppler Study 07/28/24 14:29 IMPRESSION: 1. <50% stenosis in the right internal carotid artery. 2. <50% stenosis in the left internal carotid artery. Chest X-Ray 08/05/24 08:48 IMPRESSION: 1. Stable appearance of calcified pleural plaques in the bilateral lower lung zones consistent with prior asbestos exposure. No definitive acute ca rdiopulmonary disease.
[2024-08-07] MEDS: PANTOPRAZOLE 40 MG TABLET PO (20:48)
[2024-08-07] MEDS: ROSUVASTATIN 20 MG TABLET PO (20:48)
[2024-08-08 06:00] VITALS: BP 142/67; PULSE 59; RESP 16; TEMP 36.2; O2SAT 100
[2024-08-08] MEDS: pyRIDostigmine bromide 30 MG TABLET PO ×2 (09:57→13:45)
[2024-08-08] MEDS: APIXABAN 5 MG TABLET PO (09:57)
[2024-08-08] MEDS: MULTIVITAMINS THERAPEUTIC TAB (*BKC) 1 TABLET PO (09:57)
[2024-08-08] MEDS: MIDODRINE HCL 2.5 MG TABLET PO ×2 (09:57→13:45)
[2024-08-08 10:00] VITALS: BP 167/91
[2024-08-08 10:02] VITALS: BP 132/37
[2024-08-08 10:04] VITALS: BP 96/63
--- NOTE | 2024-08-08 11:11 | WPDNEUROPN ---
Progress Note: A&P Assessment and Plan (1) Orthostatic hypotension: Code(s): I95.1 - Orthostatic hypotension Status: Acute (2) Dementia: Code(s): F03.90 - Unspecified dementia, unspecified severity, without behavioral disturbance, psychotic disturbance, mood disturbance, and anxiety Status: Acute (3) Atrial fibrillation and flutter: Code(s): I48.91 - Unspecified atrial fibrillation; I48.92 - Unspecified atrial flutter Status: Acute Plan The risk of increasing midodrine would be supine hypertension but since physical therapist has noted to be a consistent problem out suggest increasing the dose of midodrine to 2.5 mg 3 times a day and pyridostigmine to 30 mg 3 times a day. He has been taken off the Flomax but it may take some time to wash off the system. Continue surveillance of blood pressure recommended. Subjective Date/time seen: 08/08/24 11:11 Interval history: 83-year-old with history of possible hypertension was seen for follow-up. The physical therapy is working with him. Patient's was also present. Although he is doing better but there is still a concern regarding the blood pressure drop when he stands up. This morning his blood pressure supine was 167/91 with a pulse rate of 66. Standing blood pressure was 96/63 with a pulse of 75. Review of Systems Review of Systems: All systems reviewed & are unremarkable except as noted in HPI and below Exam Narrative: Fully conscious alert getting ready to walk with a walker. No additional new findings were Objective Data Vital Signs Vital Signs: Vital Signs - 24 hr 08/07/24 14:00 08/07/24 14:20 08/07/24 14:21 Temperature 98.5 F Pulse Rate 76 Respiratory Rate 16 Blood Pressure 157/79 H 157/79 H 151/87 H Pulse Oximetry 98 Oxygen Delivery 08/07/24 14:22 08/07/24 20:00 08/07/24 20:00 Temperature 97.6 F Pulse Rate 58 L Respiratory Rate 16 Blood Pressure 77/54 L 133/56 L Pulse Oximetry 98 Oxygen Delivery Room Air 08/07/24 20:46 08/08/24 06:00 Temperature 97.6 F 97.1 F L Pulse Rate 58 L 59 L Respiratory Rate 16 16 Blood Pressure 133/56 L 142/67 H Pulse Oximetry 98 100 Oxygen Delivery Intake/Output Intake/Output: Intake & Output 08/05/24 08/06/24 08/07/24 08/08/24 23:59 23:59 23:59 23:59 Intake Total 660 2240 2540 830 Output Total 800 625 300 450 Balance -140 1615 2240 380 Meds/Results Medications: Active Medications Generic Name Dose Route Start Last Admin Trade Name Freq PRN Reason Stop Dose Admin Acetaminophen 650 mg 07/30/24 07:34 08/04/24 08:33 Acetaminophen 325 Mg Tablet PO 650 mg Q4H PRN Administration Pain Albuterol/Ipratropium 3 ml 07/27/24 17:04 Ipratropium 0.5 Mg/Albuterol Sulfate 2.5 Mg Ampul.Neb 3 Ml INHALATION Q6HRT PRN Shortness Of Breath Or Wheezing Apixaban 5 mg 07/26/24 21:00 08/08/24 09:57 Apixaban 5 Mg Tablet PO 5 mg Q12HR KIESHA Administration Hydralazine HCl 10 mg 07/27/24 16:59 08/03/24 06:11 Hydralazine Hcl 20 Mg/Ml Vial IV PUSH 10 mg Q8H PRN Administration Blood Pressure - High Midodrine 2.5 mg 08/01/24 21:00 08/08/24 09:57 Midodrine Hcl 2.5 Mg Tablet PO 2.5 mg Q12HR KIESHA Administration Multivitamins Therapeutic 1 tablet 07/27/24 09:00 08/08/24 09:57 Multivitamins Therapeutic Tab (*Bkc) PO 1 tablet DAILY KIESHA Administration Pantoprazole Sodium 40 mg 07/26/24 21:00 08/07/24 20:48 Pantoprazole 40 Mg Tablet PO 40 mg HS KIESHA Administration Pyridostigmine [place] 30 mg 08/01/24 21:00 08/08/24 09:57 Pyridostigmine [place] 30 Mg Tablet PO 30 mg Q12HR KIESHA Administration Rosuvastatin Calcium 20 mg 07/26/24 21:00 08/07/24 20:48 Rosuvastatin 20 Mg Tablet PO 20 mg HS KIESHA Administration Radiology Results: ITS Impressions Head CT 07/26/24 09:31 IMPRESSION: No acute intracranial findings. Cervical Spine CT 07/26/24 09:36 IMPRESSION: No acute osseous abnormality cervical spine. Pelvis X-Ray 07/26/24 09:43 IMPRESSION: Lucency at the junction of the right acetabulum with the superior pubic ramus. Possibility of fracture cannot be excluded. CT is advised. Pelvis CT 07/26/24 10:38 IMPRESSION: 1. Degenerative skeletal changes in the lower lumbar spine and pelvis as detailed above. No acute osseous abnormality. Carotid Doppler Study 07/28/24 14:29 IMPRESSION: 1. <50% stenosis in the right internal carotid artery. 2. <50% stenosis in the left internal carotid artery. Chest X-Ray 08/05/24 08:48 IMPRESSION: 1. Stable appearance of calcified pleural plaques in the bilateral lower lung zones consistent with prior asbestos exposure. No definitive acute cardiopulmonary disease.
[2024-08-08 14:00] VITALS: BP 148/64; PULSE 72; RESP 16; TEMP 36.8; O2SAT 68
--- NOTE | 2024-08-08 14:10 | P.PNIM_ITS ---
Progress Note: A&P Assessment and Plan (1) Dementia: Code(s): F03.90 - Unspecified dementia, unspecified severity, without behavioral disturbance, psychotic disturbance, mood disturbance, and anxiety Status: Acute Assessment and Plan: * 08/07 Discussed with that he will need to participate in rehab in order to return home. (2) Pneumonia: Qualifiers: Laterality: right Lung location: lower lobe of lung Pneumonia type: due to unspecified organism Qualified Code(s): J18.9 - Pneumonia, unspecified organism Code(s): J18.9 - Pneumonia, unspecified organism Status: Acute Assessment and Plan: * 08/06 WBC 10.2k * Completed Azithromycin and Augmentin. * Duoneb PRN. * Blood cultures no growth to date. * Follow up xray 08/05 Stable appearance of calcified pleural plaques in the bilateral lower lung zones consistent with prior asbestos exposure. No definitive acute cardiopulmonary disease. (3) Neurologic abnormality: Code(s): R29.818 - Other symptoms and signs involving the nervous system Status: Acute Assessment and Plan: 07/28/24-possible syncopal episode in-hospital * Trop negative * Carotid dopplers: IMPRESSION: 1. <50% stenosis in the right internal carotid artery. 2. <50% stenosis in the left internal carotid artery. * Echocardiogram: There is mildmitral regurgitation. EF 65% * No further episodes (4) Generalized weakness: Code(s): R53.1 - Weakness Status: Acute Assessment and Plan: * PT/OT (5) Acute kidney injury: Code(s): N17.9 - Acute kidney failure, unspecified Status: Acute Assessment and Plan: * Creatinine 08/05 1.05 (6) Hypertension: Code(s): I10 - Essential (primary) hypertension Status: Acute Assessment and Plan: * 08/05 98/63 standing * 08/06 166/92 supine, 135/73 standing * 08/07 166/76 supine (7) Orthostatic hypotension: Code(s): I95.1 - Orthostatic hypotension Status: Acute Assessment and Plan: * 08/01/24: Stop Flomax, Added Midodrine 2.5 mg PO BID and Mestinon 30 mg PO q 12. Per Neurology recommendations. * Cardiology consulted (8) Fall: Code(s): W19.XXXA - Unspecified fall, initial encounter Status: Acute Assessment and Plan: * Bed alarm. * Patient across from nurses station on video. * Fall precautions Plan 83-year-old gentleman who was diagnosed with dementia about 5 years ago was admitted due to general so and found to have orthostatic hypotension. He has tolerated medication and physical therapy. He is tolerating a soft diet. awaiting insurance approval for transfer to [facility] for custodial rehab. today patient was seen by his neurologist and concerned that increase midodrine may result in increase blood pressure during supine, however a gentle increase 3mg TID from 2.5mg current dose, will monitor, patient is waiting for insurance approval to transfer to [facility] for custodial rehab. will monitor. Subjective Date/time seen: 08/08/24 14:10 Interval history: 83-year-old gentleman who was diagnosed with dementia about 5 years ago was admitted due to general so and found to have orthostatic hypotension. He has tolerated medication and physical therapy. He is tolerating a soft diet. awaiting insurance approval for transfer to [facility] for custodial rehab. today patient was seen by his neurologist and concerned that increase midodrine may result in increase blood pressure during supine, however a gentle increase 3mg TID from 2.5mg current dose, will monitor, patient is waiting for insurance approval to transfer to [facility] for custodial rehab. will monitor. Review of Systems Review of Systems: ROS unobtainable: Yes unobtainable due to medical condition Exam Narrative: Patient is comfortable, NAD HEENT: eyes are clear and none icteric LUNGS:CTA HEART: RR S1S2 ABD: BS+, Soft and nontender Lower extremities: no edema SKIN: nonjaundiced Neuro: grossly intact. Objective Data Vital Signs Vital Signs: Vital Signs - 24 hr 08/07/24 14:20 08/07/24 14:21 08/07/24 14:22 Temperature Pulse Rate Respiratory Rate Blood Pressure 157/79 H 151/87 H 77/54 L Pulse Oximetry Oxygen Delivery 08/07/24 20:00 08/07/24 20:00 08/07/24 20:46 Temperature 36.4 C 36.4 C Pulse Rate 58 L 58 L Respiratory Rate 16 16 Blood Pressure 133/56 L 133/56 L Pulse Oximetry 98 98 Oxygen Delivery Room Air 08/08/24 06:00 08/08/24 08:00 08/08/24 10:00 Temperature 36.2 C L Pulse Rate 59 L Respiratory Rate 16 Blood Pressure 142/67 H 167/91 H Pulse Oximetry 100 Oxygen Delivery Room Air 08/08/24 10:02 08/08/24 10:04 Temperature Pulse Rate Respiratory Rate Blood Pressure 132/37 L 96/63 L Pulse Oximetry Oxygen Delivery Intake/Output Intake/Output: Intake & Output 08/05/24 08/06/24 08/07/24 08/08/24 23:59 23:59 23:59 23:59 Intake Total 660 2240 2540 1310 Output Total 800 625 300 450 Balance -140 1615 2240 860 Meds/Results Medications: Active Medications Generic Name Dose Route Start Last Admin Trade Name Freq PRN Reason Stop Dose Admin Acetaminophen 650 mg 07/30/24 07:34 08/04/24 08:33 Acetaminophen 325 Mg Tablet PO 650 mg Q4H PRN Administration Pain Albuterol/Ipratropium 3 ml 07/27/24 17:04 Ipratropium 0.5 Mg/Albuterol Sulfate 2.5 Mg Ampul.Neb 3 Ml INHALATION Q6HRT PRN Shortness Of Breath Or Wheezing Apixaban 5 mg 07/26/24 21:00 08/08/24 09:57 Apixaban 5 Mg Tablet PO 5 mg Q12HR KIESHA Administration Hydralazine HCl 10 mg 07/27/24 16:59 08/03/24 06:11 Hydralazine Hcl 20 Mg/Ml Vial IV PUSH 10 mg Q8H PRN Administration Blood Pressure - High Midodrine 2.5 mg 08/08/24 13:00 08/08/24 13:45 Midodrine Hcl 2.5 Mg Tablet PO 2.5 mg TID KIESHA Administration Multivitamins Therapeutic 1 tablet 07/27/24 09:00 08/08/24 09:57 Multivitamins Therapeutic Tab (*Bkc) PO 1 tablet DAILY KIESHA Administration Pantoprazole Sodium 40 mg 07/26/24 21:00 08/07/24 20:48 Pantoprazole 40 Mg Tablet PO 40 mg HS KIESHA Administration Pyridostigmine [place] 30 mg 08/08/24 13:00 08/08/24 13:45 Pyridostigmine [place] 30 Mg Tablet PO 30 mg TID KIESHA Administration Rosuvastatin Calcium 20 mg 07/26/24 21:00 08/07/24 20:48 Rosuvastatin 20 Mg Tablet PO 20 mg HS KIESHA Administration Radiology Results: ITS Impressions Head CT 07/26/24 09:31 IMPRESSION: No acute intracranial findings. Cervical Spine CT 07/26/24 09:36 IMPRESSION: No acute osseous abnormality cervical spine. Pelvis X-Ray 07/26/24 09:43 IMPRESSION: Lucency at the junction of the right acetabulum with the superior pubic ramus. Possibility of fracture cannot be excluded. CT is advised. Pelvis CT 07/26/24 10:38 IMPRESSION: 1. Degenerative skeletal changes in the lower lumbar spine and pelvis as detailed above. No acute osseous abnormality. Carotid Doppler Study 07/28/24 14:29 IMPRESSION: 1. <50% stenosis in the right internal carotid artery. 2. <50% stenosis in the left internal carotid artery. Chest X-Ray 08/05/24 08:48 IMPRESSION: 1. Stable appearance of calcified pleural plaques in the bilateral lower lung zones consistent with prior asbestos exposure. No definitive acute cardiopulmonary disease. Quality VTE Prophylaxis VTE prophylaxis: pharmacologic ordered
--- NOTE | 2024-08-08 15:00 | P.DS_ITS ---
DS: Admitting Diagnosis Discharge Date 08/08/24 Admitting Diagnosis Weakness DS: Discharge Diagnosis Discharge Diagnosis (1) Dementia: Code(s): F03.90 - Unspecified dementia, unspecified severity, without behavioral disturbance, psychotic disturbance, mood disturbance, and anxiety Status: Acute Assessment and Plan: * 08/07 Discussed with that he will need to participate in rehab in order to return home. (2) Pneumonia: Qualifiers: Laterality: right Lung location: lower lobe of lung Pneumonia type: due to unspecified organism Qualified Code(s): J18.9 - Pneumonia, unspecified organism Code(s): J18.9 - Pneumonia, unspecified organism Status: Acute Assessment and Plan: * 08/06 WBC 10.2k * Completed Azithromycin and Augmentin. * Duoneb PRN. * Blood cultures no growth to date. * Follow up xray 08/05 Stable appearance of calcified pleural plaques in the bilateral lower lung zones consistent with prior asbestos exposure. No definitive acute cardiopulmonary disease. (3) Neurologic abnormality: Code(s): R29.818 - Other symptoms and signs involving the nervous system Status: Acute Assessment and Plan: 07/28/24-possible syncopal episode in-hospital * Trop negative * Carotid dopplers: IMPRESSION: 1. <50% stenosis in the right internal carotid artery. 2. <50% stenosis in the left internal carotid artery. * Echocardiogram: There is mildmitral regurgitation. EF 65% * No further episodes (4) Generalized weakness: Code(s): R53.1 - Weakness Status: Acute Assessment and Plan: * PT/OT (5) Acute kidney injury: Code(s): N17.9 - Acute kidney failure, unspecified Status: Acute Assessment and Plan: * Creatinine 08/05 1.05 (6) Hypertension: Code(s): I10 - Essential (primary) hypertension Status: Acute Assessment and Plan: * 08/05 98/63 standing * 08/06 166/92 supine, 135/73 standing * 08/07 166/76 supine (7) Orthostatic hypotension: Code(s): I95.1 - Orthostatic hypotension Status: Acute Assessment and Plan: * 08/01/24: Stop Flomax, Added Midodrine 2.5 mg PO BID and Mestinon 30 mg PO q 12. Per Neurology recommendations. * Cardiology consulted (8) Fall: Code(s): W19.XXXA - Unspecified fall, initial encounter Status: Acute Assessment and Plan: * Bed alarm. * Patient across from nurses station on video. * Fall precautions Plan 83-year-old gentleman who was diagnosed with dementia about 5 years ago was admitted due to general so and found to have orthostatic hypotension. He has tolerated medication and physical therapy. He is tolerating a soft diet. awaiting insurance approval for transfer to [facility] for jail rehab. today patient was seen by his neurologist and concerned that increase midodrine may result in increase blood pressure during supine, however a gentle increase 3mg TID from 2.5mg current dose, will monitor, patient is waiting for insurance approval to transfer to [facility] for jail rehab. will monitor. DS: Summary Hospital Course Hospital Course: 83-year-old gentleman who was diagnosed with dementia about 5 years ago was admitted due to general so and found to have orthostatic hypotension. He has tolerated medication and physical therapy. He is tolerating a soft diet. awaiting insurance approval for transfer to [facility] for jail rehab. today patient was seen by his neurologist and concerned that increase midodrine may result in increase blood pressure during supine, however a gentle increase 3mg TID from 2.5mg current dose, pyridostigmine to 30 mg 3 times a day. patient remains clinically stable, will discharge patient to SNF and instruct NH to closely monitor patient blood pressure. Time Spent with Patient Time attestation: Total time spent providing and/or coordinating discharge services: Exam Narrative: Patient is comfortable, NAD HEENT: eyes are clear and none icteric LUNGS:CTA HEART: RR S1S2 ABD: BS+, Soft and nontender Lower extremities: no edema SKIN: nonjaundiced Neuro: grossly intact. Discharge Plan Discharge Attending physician on discharge: Diana Cain Consulting providers: Oneal Garcia; Canelo Jha; Lashawn Mccord Discharging Clinician: Eve Rubalcava Patient Disposition: NH Residential/Asst Living Activity: as tolerated Diet: heart healthy Discharge Instructions: patient with orthostatic hypotension, his midodrine and pyridostigmine were increases, please monitor his BP per your protocol. patient to follow up with his primary care provider as soon as possible. Patient Instructions: Antibiotic Form, Apixaban (By mouth) Patient Language: Danish Stand Alone Forms: General Discharge Information Follow-up/Referrals: Tanvi,MD Nick [Primary Care Provider] - Discharge Medications: New midodrine 2.5 mg tablet 3 mg PO TID Qty: 120 0RF Rx Instructions: do not give last dose of day after 6PM or within 4 hrs of bedtime pyridostigmine bromide 30 mg tablet 30 mg PO TID Qty: 90 0RF Continued omeprazole 20 mg capsule,delayed release(DR/EC) 20 mg PO HS rosuvastatin 20 mg tablet 20 mg PO HS Eliquis 5 mg Tablet 5 mg PO Q12HR 30 Days Qty: 60 0RF multivitamin [Daily Multi-Vitamin] Tablet 1 tablet PO DAILY Held tamsulosin 0.4 mg capsule 0.4 mg PO HS Hold Instructions: until seen by his primary care provider Date of admission: 07/28/24 14:19 Primary Care Provider: CarNick Admitting Provider: Eve Rubalcava Attending physician on admission: Diana Cain Condition: Stable
== END 2024-08-08 17:20 | DRG 194 ==
LOC: ANHED 09:09 → ANH3MEDSUR 12:10
PROVIDERS: Internal Medicine Nephrology; Nurse Practitioner Acute Care; Nurse Practitioner Family; Admitting Provider Family Medicine; Emergency Provider Physician Assistant; PCP Internal Medicine; Visit Provider Family Medicine
DX: J18.9 Pneumonia, unspecified organism (principal); I48.20 Chronic atrial fibrillation, unspecified; N17.9 Acute kidney failure, unspecified; I95.1 Orthostatic hypotension; I10 Essential (primary) hypertension; N40.0 Benign prostatic hyperplasia without lower urinary tract symptoms; R29.818 Other symptoms and signs involving the nervous system; R53.1 Weakness; R29.6 Repeated falls; F03.90 Unspecified dementia, unspecified severity, without behavioral disturbance, psychotic disturbance, mood disturbance, and anxiety; W19.XXXA Unspecified fall, initial encounter; Z20.822 Contact with and (suspected) exposure to COVID-19; Z79.01 Long term (current) use of anticoagulants
CPT/HCPCS: 36415; 70450; 71045; 71046; 72125; 72170; 72192; 80048; 80053; 81001; 82533; 82948; 83735; 83880; 84443; 84484; 85025; 85027; 85652; 86140; 87040; 87637; 93005; 93306; 93880; 96365; 96366; 96368; 96375; 96376; 97110; 97162; 97166; 97530; 97535; 99285; A9270; G0378; J0360; J0456; J0696; J7030; J7040

== ENCOUNTER 2024-08-23 12:21 | Emergency (ER) | payer MEDICARE, SELFPAY ==
[2024-08-23] VITALS (11 sets, daily range): BP systolic 152–200; BP diastolic 79–128; PULSE 60–82; RESP 15–17; TEMP 36.2; O2SAT 96–99
--- NOTE | ~2024-08-23 | CT_ITS ---
EXAMINATION: CT thoracic lumbar wo con DATE: 08/23/2024 17:39 INDICATION: trauma . TECHNIQUE: Computed tomography (CT) of the thoracic and lumbar spine was performed without intravenou s contrast. Automated exposure control and iterative reconstruction technique were employed. The dose -length product was 1458.53 mGy-cm. COMPARISON: 04/19/2024 FINDINGS: THORACIC SPINE: Vertebral body alignment intact. Vertebral body heights preserved. Chronic endplate deformities at T2 . Kyphosis and scoliosis. Multilevel moderate degenerative disc disease including bridging osteophyte s. No traumatic malalignment or fracture. Visualized lung parenchyma is clear. Aortic, mitral, and co ronary artery calcifications. Thoracic aortic ectasia. Bilateral pleural calcifications. Biapical ple ural scarring. Mild scattered interstitial changes. LUMBAR SPINE: 5 nonrib-bearing lumbar-type vertebral bodies. Mild scoliosis. Pedicles intact. Stable grade 1 retrol isthesis at L4-5. Lateral partial L4-5 fusion. Multilevel moderate degenerative disc disease and face t arthropathy. Vertebral body heights preserved. No severe central canal or neural foraminal narrowin g. IMPRESSION: No acute osseous fracture or traumatic malalignment detected in the thoracic or lumbar spine Reviewed, dictated and finalized at location K.
--- NOTE | ~2024-08-23 | CT_ITS ---
EXAMINATION: CT brain wo con DATE: 08/23/2024 17:32 INDICATION: trauma . TECHNIQUE: Computed tomography (CT) of the head was performed without intravenous contrast. The mA wa s adjusted according to patient size. Iterative reconstruction technique was employed. The dose-lengt h product was 681.00 mGy-cm. COMPARISON: 07/26/2024. FINDINGS: No acute intracranial hemorrhage or extra-axial fluid collection. No hydrocephalus, mass, or herniation. No acute ischemic infarct. Unremarkable dural venous sinus attenuation. No acute osseous abnormality. Mild right maxillary and ethmoid mucosal thickening, small right sphenoid retention cyst/polyp, bilat eral complete mastoid air cell opacification, right middle ear compartment opacification, the remaini ng aerated spaces are clear. Moderate atrophy and chronic white matter change. Atherosclerotic intracranial calcification. Bilater al lens replacements. Left basal ganglia calcifications. IMPRESSION: No acute intracranial process. Bilateral mastoid effusions. Right middle ear fluid. Correlate for clinical findings of right otomast oiditis. Reviewed, dictated and finalized at location K. IMPRESSION: No acute intracranial process. Bilateral mastoid effusions. Right middle ear fluid. Correlate for clinical fin dings of right otomastoiditis.
--- NOTE | ~2024-08-23 | CT_ITS ---
EXAMINATION: CT cervical spine wo con DATE: 08/23/2024 17:32 INDICATION: trauma TECHNIQUE: Computed tomography (CT) of the cervical spine was performed without intravenous contrast. Automated exposure control and iterative reconstruction technique were employed. The dose-length pro duct was 336.83 mGy-cm. COMPARISON: 07/26/2024. FINDINGS: Vertebral Body Alignment: Stable multilevel grade 1 listheses. Craniocervical and atlantoaxial alignment: Severe degenerative change. Alignment intact. Osseous structures/fracture: No evidence of a lytic or blastic process in the visualized spine. No e vidence of acute fracture. Cervical soft tissues: The paraspinal soft tissues planes are maintained. Dilation of the aortic arch , measuring up to 3.5 cm. Biapical pleural scarring. Bilateral mastoid effusions. Middle ear fluid. Degenerative changes: Severe multilevel degenerative disc disease and facet arthropathy. No severe ce ntral canal or neural foraminal narrowing. IMPRESSION: No acute fracture or traumatic malalignment in the cervical spine. Bilateral mastoid effusions. Right middle ear fluid. Correlate for clinical findings of right otomast oiditis. Ectatic thoracic aortic arch. Reviewed, dictated and finalized at location K. IMPRESSION: No acute fracture or traumatic malalignment in the cervical spine. Bilateral mastoid effusions. Right middle ear fluid. Correlate for clinical fin dings of right otomastoiditis. Ectatic thoracic aortic arch.
--- OUTSIDE RECORDS SUMMARY | 2024-08-23 12:23 | XMS_ITS | Clinical Summary ---
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
--- OUTSIDE RECORDS SUMMARY | 2024-08-23 12:23 | XMS_ITS | Data Portability ---
Author Organization [place] [facility], Main Office Address [address] [place] [address] Care Team Providers Care Law Firm Administrator Name Role Phone YOON EVON Primary Care Provider [phone] EVON YOON Referring Provider Assessment Encounter Date Assessment Date Assessment LastModified by Organization Details LastModified Time 05/11/2023 05/11/2023 This note is dictated and transcribed by [employer]. Senior Engineering Specialist variances may occur. Despite proofreading, typographical errors may occur. Occasional wrong-word or 'bbdgd-p-hrxk' substitutions may have occurred due to the inherent limitations of voice recording. Read the chart carefully and recognize, using context, where substitutions have occurred. Not available 05/11/2023 13:08:25 08/10/2023 08/10/2023 This note is dictated and transcribed by [employer]. Senior Engineering Specialist variances may occur. Despite proofreading, typographical errors may occur. Occasional wrong-word or 'lwqwg-m-zyzg' substitutions may have occurred due to the inherent limitations of voice recording. Read the chart carefully and recognize, using context, where substitutions have occurred. Not available 08/10/2023 14:33:02 11/12/2023 11/12/2023 This note is dictated and transcribed by [employer]. Senior Engineering Specialist variances may occur. Despite proofreading, typographical errors may occur. Occasional wrong-word or 'yaaph-v-hhof' substitutions may have occurred due to the inherent limitations of voice recording. Read the chart carefully and recognize, using context, where substitutions have occurred. Not available 11/12/2023 15:03:48 03/21/2024 03/21/2024 This note is dictated and transcribed by [employer]. Senior Engineering Specialist variances may occur. Despite proofreading, typographical errors may occur. Occasional wrong-word or 'kiuzt-r-yiyc' substitutions may have occurred due to the inherent limitations of voice recording. Read the chart carefully and recognize, using context, where substitutions have occurred. Not available 03/21/2024 11:55:22 06/16/2024 06/16/2024 This note is dictated and transcribed by [employer]. Senior Engineering Specialist variances may occur. Despite proofreading, typographical errors may occur. Occasional wrong-word or 'ykbyu-e-bzou' substitutions may have occurred due to the [...] 10.3 x10'3 /uL 4.2-10 .8 Not Available [facility] (Lab) [address] [place], [address], 07/27/2023 13:42:11 07/27/19 24 07/27/2023 CBC/C OMPLE TE BLD COUNT W/DIF F red blood cells 4.40 x10'6 /uL 4.10-5 .80 Not Available [facility] (Lab) [address] [place], [address], 07/27/2023 13:42:11 07/27/19 24 07/27/2023 CBC/C OMPLE TE BLD COUNT W/DIF F hemoglobin 14.8 g/dL 13.2-1 7.0 Not Available [facility] (Lab) [address] [place], [address], 07/27/2023 13:42:11 07/27/19 24 07/27/2023 CBC/C OMPLE TE BLD COUNT W/DIF F hematocrit 44.8 % 39.3-5 0.0 Not Available [facility] (Lab) [address] [place], [address], 07/27/2023 13:42:11 07/27/19 24 07/27/2023 CBC/C OMPLE TE BLD COUNT W/DIF F mean red cell volume 101.8 fL 80.0-9 7.0 high Not Available [facility] (Lab) [address] [place], [address], 07/27/2023 13:42:11 07/27/19 24 07/27/2023 CBC/C OMPLE TE BLD COUNT W/DIF F mean red cell hemoglobin 33.6 pg 27.0-3 3.0 high Not Available [facility] (Lab) [address] [place], [address], 07/27/2023 13:42:11 07/27/19 24 07/27/2023 CBC/C OMPLE TE BLD COUNT W/DIF F mean RBC HGB concentratio n 33.0 g/dL 31.0-3 6.0 Not Available [facility] (Lab) [address] [place], [address], 07/27/2023 13:42:11 07/27/19 24 07/27/2023 CBC/C OMPLE TE BLD COUNT W/DIF F red cell distribution width 13.7 % 11.8-1 5.5 Not Available [facility] (Lab) [address] [place], [address], 07/27/2023 13:42:11 07/27/19 24 07/27/2023 CBC/C OMPLE TE BLD COUNT W/DIF F platelets 276 x10'3 /uL 150-40 0 Not Available [facility] (Lab) [address] [place], [address], 07/27/2023 13:42:11 07/27/19 24 07/27/2023 CBC/C OMPLE TE BLD COUNT W/DIF F mean platelet volume 10.5 fL 9.0-12 .4 Not Available [facility] (Lab) [address] [place], [address], 07/27/2023 13:42:11 07/27/19 24 07/27/2023 CBC/C OMPLE TE BLD COUNT W/DIF F neutrophils 73.8 % 39.0-7 2.0 high Not Available [facility] (Lab) [address] [place], [address], 07/27/2023 13:42:11 07/27/19 24 07/27/2023 CBC/C OMPLE TE BLD COUNT W/DIF F lymphocytes 12.9 % 16.0-4 7.0 low Not Available [facility] (Lab) [address] [place], [address], 07/27/2023 13:42:11 07/27/19 24 07/27/2023 CBC/C OMPLE TE BLD COUNT W/DIF F monocytes 10.1 % 5.0-12 .0 Not Available [facility] (Lab) [address] [place], [address], 07/27/2023 13:42:11 07/27/19 24 07/27/2023 CBC/C OMPLE TE BLD COUNT W/DIF F eosinophils 2.1 % 1.0-7. 0 Not Available [facility] (Lab) [address] [place], [address], 07/27/2023 13:42:11 07/27/19 24 07/27/2023 CBC/C OMPLE TE BLD COUNT W/DIF F basophils 0.6 % 0.0-2. 0 Not Available [facility] (Lab) [address] [place], [address], 07/27/2023 13:42:11 07/27/19 24 07/27/2023 CBC/C OMPLE TE BLD COUNT W/DIF F immature granulocytes 0.5 % 0.00-0 .50 Not Available [facility] (Lab) [address] [place], [address], 07/27/2023 13:42:11 07/27/19 24 07/27/2023 CBC/C OMPLE TE BLD COUNT W/DIF F neutrophils, absolute count 7.63 x10'3 /uL 1.5-8. 0 Not Available [facility] (Lab) [address] [place], [address], 07/27/2023 13:42:11 07/27/19 24 07/27/2023 CBC/C OMPLE TE BLD COUNT W/DIF F lymphocytes, absolute count 1.33 x10'3 /uL 1.07-3 .43 Not Available [facility] (Lab) [address] [place], [address], 07/27/2023 13:42:11 07/27/19 24 07/27/2023 CBC/C OMPLE TE BLD COUNT W/DIF F monocytes, absolute count 1.04 x10'3 /uL 0.29-0 .99 high Not Available [facility] (Lab) [address] [place], [address], 07/27/2023 13:42:11 07/27/19 24 07/27/2023 CBC/C OMPLE TE BLD COUNT W/DIF F eosinophils, absolute count 0.22 x10'3 /uL 0.02-0 .53 Not Available [facility] (Lab) [address] [place], [address], 07/27/2023 13:42:11 07/27/19 24 07/27/2023 CBC/C OMPLE TE BLD COUNT W/DIF F basophils, absolute count 0.06 x10'3 /uL 0.01-0 .08 Not Available [facility] (Lab) [address] [place], [address], 07/27/2023 13:42:11 07/27/19 24 07/27/2023 CBC/C OMPLE TE BLD COUNT W/DIF F immature granulocytes ,absolute 0.05 x10'3 /uL 0.00-0 .05 Not Available [facility] (Lab) [address] [place], [address], 07/27/2023 13:42:11 07/27/19 24 07/27/2023 CBC/C OMPLE TE BLD COUNT W/DIF F nucleated red blood cells 0.0 % -0 Not Available [facility] (Lab) [address] [place], [address], 07/27/2023 13:42:11 07/27/19 24 07/27/2023 CBC/C OMPLE TE BLD COUNT W/DIF F NRBC# 0.00 x10'3 /uL Not Available [facility] (Lab) [address] [place], [address], 07/27/2023 13:42:11 07/27/19 24 07/27/2023 LIPID PANEL cholesterol 144 mg/dL 140-19 9 NIH MARLENI NSUS RECOM MENDA TION FOR CLARE STERO L: ADULT CHILD LOW RISK: <200 <170 BORDE RLINE : <200- 239 ----- HIGH RISK: >240 >200 Not Available [facility] (Lab) [address] [place], [address], 07/27/2023 19:00:03 07/27/19 24 07/27/2023 LIPID PANEL triglyceride s 249 mg/dL 0-150 high NIH MARLENI NSUS REPOR T RECOM MENDA TION FOR TRIGL YCERI MARIA C: ADULT CHILD LOW RISK: <150 ----- BODER LINE: 150-1 99 ----- HIGH RISK: >200 ----- Not Available [facility] (Lab) [address] [place], [address], 07/27/2023 19:00:03 07/27/19 24 07/27/2023 LIPID PANEL HDL cholesterol 31 mg/dL 40- low Not Available [facility] (Lab) [address] [place], [address], 07/27/2023 19:00:03 07/27/19 24 07/27/2023 LIPID PANEL [...] WILL NOT BE REPOR CHACHA. Not Available [facility] (Lab) [address] [place], [address], 07/27/2023 19:00:03 07/27/19 24 07/27/2023 COMPR EHENS GUEVARA METAB OLIC PANEL sodium 137 mmol/ L 137-14 5 Not Available [facility] (Lab) [address] [place], [address], 07/27/2023 19:00:08 07/27/19 24 07/27/2023 COMPR EHENS GUEVARA METAB OLIC PANEL potassium 4.5 mmol/ L 3.5-5. 1 Not Available [facility] (Lab) [address] [place], [address], 07/27/2023 19:00:08 07/27/19 24 07/27/2023 COMPR EHENS GUEVARA METAB OLIC PANEL chloride 104 mmol/ L 98-107 Not Available [facility] (Lab) [address] [place], [address], 07/27/2023 19:00:08 07/27/19 24 07/27/2023 COMPR EHENS GUEVARA METAB OLIC PANEL carbon dioxide 30 mmol/ L 22-30 Not Available [facility] (Lab) [address] [place], [address], 07/27/2023 19:00:08 07/27/19 24 07/27/2023 COMPR EHENS GUEVARA METAB OLIC PANEL anion gap 7.5 mmol/ L 14- low Not Available [facility] (Lab) [address] [place], [address], 07/27/2023 19:00:08 07/27/19 24 07/27/2023 COMPR EHENS GUEVARA METAB OLIC PANEL glucose 130 mg/dL 70-99 high Not Available [facility] (Lab) [address] [place], [address], 07/27/2023 19:00:08 07/27/19 24 07/27/2023 COMPR EHENS GUEVARA METAB OLIC PANEL BUN 26 mg/dL 8-19 high Not Available [facility] (Lab) [address] [place], [address], 07/27/2023 19:00:08 07/27/19 24 07/27/2023 COMPR EHENS GUEVARA METAB OLIC PANEL creatinine 1.40 mg/dL 0.66-1 .25 high Not Available [facility] (Lab) [address] [place], [address], 07/27/2023 19:00:08 07/27/19 24 07/27/2023 COMPR EHENS GUEVARA METAB OLIC PANEL GFR 48 Refer ence Range : [place] GFR Healt hy Adult : >60 [...] calcu lator is avail able on the [facility] websi te: https ://benson w.soco haas.o rg/pr ofess ional s/kdo qi/gf r_cal culat or Not Available [facility] (Lab) [address] [place], [address], 07/27/2023 19:00:08 07/27/19 24 07/27/2023 COMPR EHENS GUEVARA METAB OLIC PANEL alkaline phosphatase 82 U/L 38-126 Not Available [facility] (Lab) [address] [place], [address], 07/27/2023 19:00:08 07/27/19 24 07/27/2023 COMPR EHENS GUEVARA METAB OLIC PANEL alanine aminotransfe rase 21 U/L 0-50 Not Available [facility] (Lab) [address] [place], [address], 07/27/2023 19:00:08 07/27/19 24 07/27/2023 COMPR EHENS GUEVARA METAB OLIC PANEL aspartate aminotransfe rase 25 U/L 15-46 Not Available [facility] (Lab) [address] [place], [address], 07/27/2023 19:00:08 07/27/19 24 07/27/2023 COMPR EHENS GUEVARA METAB OLIC PANEL bilirubin, total 0.70 mg/dL 0.20-1 .30 Not Available [facility] (Lab) [address] [place], [address], 07/27/2023 19:00:08 07/27/19 24 07/27/2023 COMPR EHENS GUEVARA METAB OLIC PANEL calcium 9.2 mg/dL 8.4-10 .2 Not Available [facility] (Lab) [address] [place], [address], 07/27/2023 19:00:08 07/27/19 24 07/27/2023 COMPR EHENS GUEVARA METAB OLIC PANEL total protein 6.9 g/dL 6.3-8. 2 Not Available [facility] (Lab) [address] [place], [address], 07/27/2023 19:00:08 07/27/19 24 07/27/2023 COMPR EHENS GUEVARA METAB OLIC PANEL albumin 4.1 g/dL 3.0-4. 4 Not Available [facility] (Lab) [address] [place], [address], 07/27/2023 19:00:08 07/27/19 24 07/27/2023 COMPR EHENS GUEVARA METAB OLIC PANEL globulin 2.8 g/dL 2.6-4. 2 Not Available [facility] (Lab) [address] [place], [address], 07/27/2023 19:00:08 07/27/19 24 07/27/2023 COMPR EHENS GUEVARA METAB OLIC PANEL A/G ratio 1.5 ratio 1.0-2. 0 Not Available [facility] (Lab) [address] [place], [address], 07/27/2023 19:00:08 11/25/19 24 11/25/2023 CBC/C OMPLE TE BLD COUNT W/DIF F white blood cells 9.2 x10'3 /uL 4.2-10 .8 Not Available [facility] (Lab) [address] [place], [address], 11/25/2023 14:01:39 11/25/19 24 11/25/2023 CBC/C OMPLE TE BLD COUNT W/DIF F red blood cells 4.58 x10'6 /uL 4.10-5 .80 Not Available [facility] (Lab) [address] [place], [address], 11/25/2023 14:01:39 11/25/19 24 11/25/2023 CBC/C OMPLE TE BLD COUNT W/DIF F hemoglobin 15.5 g/dL 13.2-1 7.0 Not Available [facility] (Lab) [address] [place], [address], 11/25/2023 14:01:39 11/25/19 24 11/25/2023 CBC/C OMPLE TE BLD COUNT W/DIF F hematocrit 47.4 % 39.3-5 0.0 Not Available [facility] (Lab) [address] [place], [address], 11/25/2023 14:01:39 11/25/19 24 11/25/2023 CBC/C OMPLE TE BLD COUNT W/DIF F mean red cell volume 103.5 fL 80.0-9 7.0 high Not Available [facility] (Lab) [address] [place], [address], 11/25/2023 14:01:39 11/25/19 24 11/25/2023 CBC/C OMPLE TE BLD COUNT W/DIF F mean red cell hemoglobin 33.8 pg 27.0-3 3.0 high Not Available [facility] (Lab) [address] [place], [address], 11/25/2023 14:01:39 11/25/19 24 11/25/2023 CBC/C OMPLE TE BLD COUNT W/DIF F mean RBC HGB concentratio n 32.7 g/dL 31.0-3 6.0 Not Available [facility] (Lab) [address] [place], [address], 11/25/2023 14:01:39 11/25/19 24 11/25/2023 CBC/C OMPLE TE BLD COUNT W/DIF F red cell distribution width 13.9 % 11.8-1 5.5 Not Available [facility] (Lab) [address] [place], [address], 11/25/2023 14:01:39 11/25/19 24 11/25/2023 CBC/C OMPLE TE BLD COUNT W/DIF F platelets 275 x10'3 /uL 150-40 0 Not Available [facility] (Lab) [address] [place], [address], 11/25/2023 14:01:39 11/25/19 24 11/25/2023 CBC/C OMPLE TE BLD COUNT W/DIF F mean platelet volume 10.6 fL 9.0-12 .4 Not Available [facility] (Lab) [address] [place], [address], 11/25/2023 14:01:39 11/25/19 24 11/25/2023 CBC/C OMPLE TE BLD COUNT W/DIF F neutrophils 70.3 % 39.0-7 2.0 Not Available [facility] (Lab) [address] [place], [address], 11/25/2023 14:01:39 11/25/19 24 11/25/2023 CBC/C OMPLE TE BLD COUNT W/DIF F lymphocytes 16.6 % 16.0-4 7.0 Not Available [facility] (Lab) [address] [place], [address], 11/25/2023 14:01:39 11/25/19 24 11/25/2023 CBC/C OMPLE TE BLD COUNT W/DIF F monocytes 9.4 % 5.0-12 .0 Not Available [facility] (Lab) [address] [place], [address], 11/25/2023 14:01:39 11/25/19 24 11/25/2023 CBC/C OMPLE TE BLD COUNT W/DIF F eosinophils 2.9 % 1.0-7. 0 Not Available [facility] (Lab) [address] [place], [address], 11/25/2023 14:01:39 11/25/19 24 11/25/2023 CBC/C OMPLE TE BLD COUNT W/DIF F basophils 0.4 % 0.0-2. 0 Not Available [facility] (Lab) [address] [place], [address], 11/25/2023 14:01:39 11/25/19 24 11/25/2023 CBC/C OMPLE TE BLD COUNT W/DIF F immature granulocytes 0.4 % 0.00-0 .50 Not Available [facility] (Lab) [address] [place], [address], 11/25/2023 14:01:39 11/25/19 24 11/25/2023 CBC/C OMPLE TE BLD COUNT W/DIF F neutrophils, absolute count 6.49 x10'3 /uL 1.5-8. 0 Not Available [facility] (Lab) [address] [place], [address], 11/25/2023 14:01:39 11/25/19 24 11/25/2023 CBC/C OMPLE TE BLD COUNT W/DIF F lymphocytes, absolute count 1.53 x10'3 /uL 1.07-3 .43 Not Available [facility] (Lab) [address] [place], [address], 11/25/2023 14:01:39 11/25/19 24 11/25/2023 CBC/C OMPLE TE BLD COUNT W/DIF F monocytes, absolute count 0.87 x10'3 /uL 0.29-0 .99 Not Available [facility] (Lab) [address] [place], [address], 11/25/2023 14:01:39 11/25/19 24 11/25/2023 CBC/C OMPLE TE BLD COUNT W/DIF F eosinophils, absolute count 0.27 x10'3 /uL 0.02-0 .53 Not Available [facility] (Lab) [address] [place], [address], 11/25/2023 14:01:39 11/25/19 24 11/25/2023 CBC/C OMPLE TE BLD COUNT W/DIF F basophils, absolute count 0.04 x10'3 /uL 0.01-0 .08 Not Available [facility] (Lab) [address] [place], [address], 11/25/2023 14:01:39 11/25/19 24 11/25/2023 CBC/C OMPLE TE BLD COUNT W/DIF F immature granulocytes ,absolute 0.04 x10'3 /uL 0.00-0 .05 Not Available [facility] (Lab) [address] [place], [address], 11/25/2023 14:01:39 11/25/19 24 11/25/2023 CBC/C OMPLE TE BLD COUNT W/DIF F nucleated red blood cells 0.0 % -0 Not Available [facility] (Lab) [address] [place], [address], 11/25/2023 14:01:39 11/25/19 24 11/25/2023 CBC/C OMPLE TE BLD COUNT W/DIF F NRBC# 0.00 x10'3 /uL Not Available [facility] (Lab) [address] [place], [address], 11/25/2023 14:01:39 11/25/19 24 11/25/2023 COMPR EHENS GUEVARA METAB OLIC PANEL sodium 139 mmol/ L 137-14 5 Not Available [facility] (Lab) [address] [place], [address], 11/25/2023 17:02:48 11/25/19 24 11/25/2023 COMPR EHENS GUEVARA METAB OLIC PANEL potassium 4.9 mmol/ L 3.5-5. 1 Not Available [facility] (Lab) [address] [place], [address], 11/25/2023 17:02:48 11/25/19 24 11/25/2023 COMPR EHENS GUEVARA METAB OLIC PANEL chloride 105 mmol/ L 98-107 Not Available [facility] (Lab) [address] [place], [address], 11/25/2023 17:02:48 11/25/19 24 11/25/2023 COMPR EHENS GUEVARA METAB OLIC PANEL carbon dioxide 30 mmol/ L 22-30 Not Available [facility] (Lab) [address] [place], [address], 11/25/2023 17:02:48 11/25/19 24 11/25/2023 COMPR EHENS GUEVARA METAB OLIC PANEL anion gap 8.9 mmol/ L 14-22 low Not Available [facility] (Lab) [address] [place], [address], 11/25/2023 17:02:48 11/25/19 24 11/25/2023 COMPR EHENS GUEVARA METAB OLIC PANEL glucose 122 mg/dL 70-99 high Not Available [facility] (Lab) [address] [place], [address], 11/25/2023 17:02:48 11/25/19 24 11/25/2023 COMPR EHENS GUEVARA METAB OLIC PANEL BUN 22 mg/dL 8-19 high Not Available [facility] (Lab) [address] [place], [address], 11/25/2023 17:02:48 11/25/19 24 11/25/2023 COMPR EHENS GUEVARA METAB OLIC PANEL creatinine 1.25 mg/dL 0.66-1 .25 Not Available [facility] (Lab) [address] [place], [address], 11/25/2023 17:02:48 11/25/19 24 11/25/2023 COMPR EHENS GUEVARA METAB OLIC PANEL GFR 55 Refer ence Range : [place] GFR Healt hy Adult : >60 [...] or ethni c subgr oups, such as [facility] nics. Outsi de the valid ated andrzej [...] calcu lator is avail able on the [facility] websi te: https :[email or web address] [email or web address].soco haas.o rg/pr ofess ional s/kdo qi/gf r_cal culat or Not Available [facility] (Lab) [address] [place], [address], 11/25/2023 17:02:48 11/25/19 24 11/25/2023 COMPR EHENS GUEVARA METAB OLIC PANEL alkaline phosphatase 98 U/L 38-126 Not Available [facility] (Lab) [address] [place], [address], 11/25/2023 17:02:48 11/25/19 24 11/25/2023 COMPR EHENS GUEVARA METAB OLIC PANEL alanine aminotransfe rase 18 U/L 0-50 Not Available [facility] (Lab) [address] [place], [address], 11/25/2023 17:02:48 11/25/19 24 11/25/2023 COMPR EHENS GUEVARA METAB OLIC PANEL aspartate aminotransfe rase 24 U/L 15-46 Not Available [facility] (Lab) [address] [place], [address], 11/25/2023 17:02:48 11/25/19 24 11/25/2023 COMPR EHENS GUEVARA METAB OLIC PANEL bilirubin, total 0.90 mg/dL 0.20-1 .30 Not Available [facility] (Lab) [address] [place], [address], 11/25/2023 17:02:48 11/25/19 24 11/25/2023 COMPR EHENS GUEVARA METAB OLIC PANEL calcium 9.3 mg/dL 8.4-10 .2 Not Available [facility] (Lab) [address] [place], [address], 11/25/2023 17:02:48 11/25/19 24 11/25/2023 COMPR EHENS GUEVARA METAB OLIC PANEL total protein 7.4 g/dL 6.3-8. 2 Not Available [facility] (Lab) [address] [place], [address], 11/25/2023 17:02:48 11/25/19 24 11/25/2023 COMPR EHENS GUEVARA METAB OLIC PANEL albumin 4.2 g/dL 3.0-4. 4 Not Available [facility] (Lab) [address] [place], [address], 11/25/2023 17:02:48 11/25/19 24 11/25/2023 COMPR EHENS GUEVARA METAB OLIC PANEL globulin 3.2 g/dL 2.6-4. 2 Not Available [facility] (Lab) [address] [place], [address], 11/25/2023 17:02:48 11/25/19 24 11/25/2023 COMPR EHENS GUEVARA METAB OLIC PANEL A/G ratio 1.3 ratio 1.0-2. 0 Not Available [facility] (Lab) [address] [place], [address], 11/25/2023 17:02:48 11/25/19 24 11/25/2023 LIPID PANEL cholesterol 134 mg/dL 140-19 9 low NIH MARLENI NSUS RECOM MENDA TION FOR CLARE STERO L: ADULT CHILD LOW RISK: <200 <170 BORDE RLINE : <200- 239 ----- HIGH RISK: >240 >200 Not Available [facility] (Lab) [address] [place], [address], 11/25/2023 17:02:49 11/25/19 24 11/25/2023 LIPID PANEL triglyceride s 211 mg/dL 0-150 high NIH MARLENI NSUS REPOR T RECOM MENDA TION FOR TRIGL YCERI MARIA C: ADULT CHILD LOW RISK: <150 ----- BODER LINE: 150-1 99 ----- HIGH RISK: >200 ----- Not Available [facility] (Lab) [address] [place], [address], 11/25/2023 17:02:49 11/25/19 24 11/25/2023 LIPID PANEL HDL cholesterol 33 mg/dL 40- low Not Available [facility] (Lab) [address] [place], [address], 11/25/2023 17:02:49 11/25/19 24 11/25/2023 LIPID PANEL [...] WILL NOT BE REPOR CHACHA. Not Available [facility] (Lab) [address] [place], [address], 11/25/2023 17:02:49 Result Notes None recorded. Problems Name Problem SNOMED Code Status Onset Date Resolution Date Notes Provider Name and Address Organization Details Recorded Time Pain in both feet 28755672640 625649 Active 2022 Not Available [facility] 3 18:20:36 Renewal of prescript ion Active 2021 Not Available [facility] 3 18:20:35 Pain of bilateral hands 48307454260 398277 Active 2021 Not Available [facility] 3 18:20:36 Ingrowing nail of toe of right foot 06714293942 633636 Active 2022 Not Available [facility] 3 18:20:36 Blood glucose outside reference range 595761724 Active 2021 Not Available [facility] 3 18:20:36 Gastroeso phageal reflux disease without esophagit is 589410391 Active 2020 Not Available [facility] 3 18:20:36 Benign prostatic hyperplas ia 578792434 Active 2021 Not Available [facility] 3 18:20:36 Intermitt ent confusion 590413623 Active 2021 Not Available [facility] 3 18:20:36 Confusion al state 832797402 Active 2021 Not Available [facility] 3 18:20:36 Numbness of hand 697635684 Active 2021 Not Available [facility] 3 18:20:36 Inguinal hernia 814749035 Completed Not Available [facility] 3 03:05:53 Chronic atrial fibrillat ion 006318363 Active 2020 Not Available [facility] 3 18:20:36 Acute upper respirato ry infection 75994174 Active 2021 Not Available [facility] 3 18:20:36 Hyperlipi demia 95338777 Active Not Available [facility] 3 18:20:36 Carpal tunnel syndrome 76826173 Active 2021 Not Available [facility] 3 18:20:36 COVID-19 394370039 Active 2021 Not Available [facility] 3 18:20:36 Dystrophi a unguium 69197171 Active 2020 Not Available [facility] 3 18:20:36 Sinusitis 61648687 Active 2022 Not Available [facility] 3 18:20:36 Insomnia 223810250 Active 2022 Not Available [facility] 3 18:20:36 Weakness present 139958615 Active 2023 HECTOR Mclaughlin null, [facility] [employer] 4 15:26:10 Pain of toe of right foot 36118877768 9101 Active 2023 Josep Bey DPM [address], [facility] [address], [address] , [facility] [employer] [facility] 4 13:07:53 Unable to cut own toenails 173918638 Active 2023 Josep Bey DPM [address], [facility] [address], [place], [address] , [facility] [employer] 14:33:17 Problem Notes None recorded. Procedures Surgical History Date Name Laterality Status Provider Name and Address Organization Details Recorded Time 06/17/19 25 Nail Debridement completed Josep Bey DPM [address], [address], [place], [address], [employer] - [facility] [employer] 06/16/2024 13:22:51 03/21/20 24 Nail Debridement completed Josep Bey DPM [address], [place], [address], [employer] [facility] [employer] 03/21/2024 11:56:09 11/12/19 24 Nail Debridement completed Josep Bey DPM [address], [place], [address], [employer] [facility] [employer] 11/12/2023 15:03:43 08/10/19 24 Nail Debridement completed Josep Bey DPM [address], [place], [address], [employer] [facility] [employer] 08/10/2023 14:33:49 05/11/19 24 Nail Debridement completed Josep Bey DPM [address], [place], [address], [employer] [facility] [employer] [facility] 05/11/2023 13:07:42 02/17/20 23 Nail Debridement completed SYLVIE Puentes, [address], [place], [address], [employer] [facility] [employer] 02/16/2023 11:25:21 11/18/19 23 Nail Debridement completed Josep Bey DPM [address], [place], [address], [employer] [facility] [employer] 11/17/2022 10:35:29 08/19/19 23 Nail Debridement completed SYLVIE Puentes, [address], [place], [address], [employer] [facility] [employer] 08/18/2022 11:16:17 01/02/20 22 Hand completed Not Available [facility] 03:02:46 06/24/19 18 Colonoscopy completed Not Available [facility] 06/05/19 03:02:46 03/28/20 13 Rerepair ing hernia reduce completed Not Available [facility] 06/04/2022 03:02:46 09/02/19 08 Colonoscopy completed Not Available [facility] 06/05/19 03:02:46 Hernia Repair completed Not Available [facility] 06/04/2022 03:02:46 Excisions - Specify completed Not Available [facility] 06/04/2022 03:02:46 Imaging Results None recorded. Procedure [...] Updated DateTime 4 187.96 cm 23.8 kg/m2 56892.5 9 g 74 /min 14 /min 97.4 [degF] 98 % 98 % 114 mm[Hg] 68 mm[Hg] Janine Dong [place] [employer] 4 12:16:57 Date Recorded Body height Body mass index (BMI) Body weight Heart rate Respiratory rate Oxygen saturation Oxygen saturation in Arterial blood by Pulse oximetry Systolic blood pressure Diastolic blood pressure Provider Name and Address Organization Details Last Updated DateTime 4 187.96 cm 23.8 kg/m2 51849.5 9 g 78 /min 14 /min 97 % 97 % 121 mm[Hg] 67 mm[Hg] Asuncion Funk [employer] 4 12:13:04 Date Recorded Body height Body mass index (BMI) Body weight Heart rate Respiratory rate Body temperature Oxygen saturation Oxygen saturation in Arterial blood by Pulse oximetry Systolic blood pressure Diastolic blood pressure Provider Name and Address Organization Details Last Updated DateTime 4 187.96 cm 23.8 kg/m2 26892.5 9 g 76 /min 14 /min 98.6 [degF] 98 % 98 % 120 mm[Hg] 70 mm[Hg] Yudi Dsouza [facility] [employer] [facility] 4 12:40:15 Date Recorded Body height Body mass index (BMI) Body weight Heart rate Respiratory rate Oxygen saturation Oxygen saturation in Arterial blood by Pulse oximetry Systolic blood pressure Diastolic blood pressure Provider Name and Address Organization Details Last Updated DateTime 4 187.96 cm 23.8 kg/m2 71684.5 9 g 78 /min 14 /min 98 % 98 % 116 mm[Hg] 73 mm[Hg] Asuncion Funk [facility] [employer] [facility] 4 11:06:27 Date Recorded Body height Body mass index (BMI) Body weight Heart rate Respiratory rate Oxygen saturation Oxygen saturation in Arterial blood by Pulse oximetry Systolic blood pressure Diastolic blood pressure Provider Name and Address Organization Details Last Updated DateTime 5 187.96 cm 23.8 kg/m2 22511.5 9 g 71 /min 14 /min 97 % 97 % 136 mm[Hg] 87 mm[Hg] Asuncion Funk [place] [employer] [facility] [employer] [facility] 5 12:12:18 Social History Question Answer Notes LastModified by [employer]TRND[employer] ion Details LastModified Time Tobacco Smoking Status Never Smoker Not Available [facility] 06/04/2022 02:53:46 Do You Have An Advance Directive? Yes MIGRATION.67228 75279 Information not available 06/04/2022 Are You Blind Or Do You Have Difficulty Seeing? Yes MIGRATION. 80967 Information not available 06/04/2022 What Is Your Level Of Caffeine Consumption? Occasional MIGRATION. 59775 Information not available 06/04/2022 How Much Tobacco Do You Chew? None MIGRATION.53507 25475 Information not available 06/04/2022 In The 14 Days Before Symptom Onset, Have You Had Close Contact With A Laboratory-confi rmed COVID-19 While That Case Was Ill? No MIGRATION.53975 88602 Information not available 06/04/2022 In The 14 Days Before Symptom Onset, Have You Had Close Contact With A Person Who Is Under Investigation For COVID-19 While That Person Was Ill? No MIGRATION.86510 28555 Information not available 06/04/2022 Are You Deaf Or Do You Have Serious Difficulty Hearing? No MIGRATION.84464 16950 Information not available 06/04/2022 What Type Of Diet Are You Following? REGULAR MIGRATION.46590 34803 Information not available 06/04/2022 Which Illicit Or Recreational Drugs Have You Used? None MIGRATION.97947 54914 Information not available 06/04/2022 What Is The Highest Grade Or Level Of School You Have Completed Or The Highest Degree You Have Received? [id number] MIGRATION.14395 11606 Information not available 06/04/2022 Have There Been Any Changes To Your Family Or Social Situation? No MIGRATION.31756 13811 Information not available 06/04/2022 What Is The Fluoride Status Of Your Home? Unknown MIGRATION.80893 49000 Information not available 06/04/2022 Are There Any Guns Present In Your Home? Yes MIGRATION.22553 62001 Information not available 06/04/2022 Do You Use Insect Repellent Routinely? No MIGRATION.76841 88220 Information not available 06/04/2022 Where Do You Live? [facility] MIGRATION.38767 84236 Information not available 06/04/2022 Do You Have A Medical Power Of Degreasing Solution Reclaimer? Yes MIGRATION.96155 54294 Information not available 06/04/2022 What Was The Date Of Your Most Recent Tobacco Screening? 04/28/2023 [email or web address] Information not available 04/28/2023 Do You Have Any Pets? No MIGRATION.77646 40552 Information not available 06/04/2022 What Is Your Relationship Status? MIGRATION.66706 20715 Information not available 06/04/2022 Do You Use Your Seat Belt Or Car Seat Routinely? Yes MIGRATION.01284 37197 Information not available 06/04/2022 Do You Have Smoke And Carbon Monoxide Detectors In Your Home? Yes MIGRATION.88511 79359 Information not available 06/04/2022 Are You Passively Exposed To Smoke? No MIGRATION.85678 19615 Information not available 06/04/2022 Are There Any Smokers In Your House? No MIGRATION.62581 82167 Information not available 06/04/2022 How Much Tobacco Do You Smoke? No MIGRATION.88215 93587 Information not available 06/04/2022 What Types Of Sporting Activities Do You Participate In? None MIGRATION.79643 63455 Information not available 06/04/2022 Do You Use Sunscreen Routinely? Yes MIGRATION.26044 49688 Information not available 06/04/2022 Has Tobacco Cessation Counseling Been Provided? No Not Needed-ne alejo Smoked MIGRATION.95198 95190 Information not available 06/04/2022 How Many Years Have You Smoked Tobacco? 0 MIGRATION.10129 85321 Information not available 06/04/2022 Have You Recently Traveled Abroad? No MIGRATION.79688 06881 Information not available 06/04/2022 Do You Have Difficulty Walking Or Climbing Stairs? Yes MIGRATION.65515 86325 Information not available 06/04/2022 Do You Have Any Dietary Restrictions? No MIGRATION.59191 91884 Information not available 06/04/2022 Sex: Male Functional Status Question Answer Note LastModified by [employer] Details LastModified Time Do you use any illicit or recreational drugs? No MIGRATION.414987 7463 Information not available 06/04/2022 Do you or have you ever used any other forms of tobacco or nicotine? No MIGRATION.391051 1041 Information not available 06/04/2022 What is your level of alcohol consumption? None MIGRATION.667658 4010 Information not available 06/04/2022 Do you or have you ever used smokeless tobacco? Never used smokeless tobacco MIGRATION.728759 6299 Information not available 06/04/2022 Do you have transportation difficulties? No MIGRATION.005516 7722 Information not available 06/04/2022 Are you able to walk? YESWOREST MIGRATION.812729 3241 Information not available 06/04/2022 Do you have difficulty doing errands alone? Yes MIGRATION.733001 9242 Information not available 06/04/2022 Are you able to care for yourself? No MIGRATION.137154 5688 Information not available 06/04/2022 What is your occupation? retired MIGRATION.208582 5341 Information not available 06/04/2022 Do you have difficulty dressing or bathing? Yes MIGRATION.751598 2667 Information not available 06/04/2022 Do you or have you ever used e-cigarettes or vape? Never used electronic cigarettes MIGRATION.123805 6893 Information not available 06/04/2022 What is your exercise level? None MIGRATION.707241 2305 Information not available 06/04/2022 Mental Status Question Answer Note LastModified by [employer] Details LastModified Time Do you feel stressed (tense, restless, nervous, or anxious, or unable to sleep at night)? [id number] MIGRATION.27313758 26 Information not available 06/04/2022 Do you have difficulty concentrating, remembering or making decisions? Yes MIGRATION.21264152 26 Information not available 06/04/2022 Family History Relationship Description Onset Age of this Age Resolved Age Notes LastModified by Organization Details LastModified Time Mother Pulmonary embolism MIGRATION.237 [id number] Not available 06/04/2022 03:02:47 Mother Malignant melanoma of skin MIGRATION.015 7804384 Not available 06/04/2022 03:02:47 Mother Carotid artery stenosis MIGRATION.701 1867769 Not available 06/04/2022 03:02:47 Father Benign essential hypertension MIGRATION.023 5213086 Not available 06/04/2022 03:02:47 Medical History Condition Response NERVE DISEASE N BLINDNESS N RHEUMATIC FEVER N KIDNEY STONES N BLADDER PROBLEMS N MRSA N OTHER # 1 N POLIO N LUNG DISEASE/DISORDER N COPD N RADIATION / CHEMOTHERAPY N Other # 2 N BLOOD DISEASES [...] HAVE YOU BEEN HOSPITALIZED OR SEEN IN [facility] IN THE PAST YEAR ? N [...] high-dose, quadrivalent, PF 01/06/2019 completed Not Available [facility] 18:20:36 Influenza, high-dose, trivalent, PF 01/06/2018 completed Not Available [facility] 2022 18:20:36 Influenza, high-dose, trivalent, PF 02/20/2017 completed Not Available [facility] 2022 18:20:36 Influenza, high-dose, trivalent, PF 01/20/2016 completed Not Available [facility] 2022 18:20:36 Influenza, split virus, trivalent, PF 02/15/2014 completed Not Available [facility] 2022 18:20:36 Influenza, high-dose, trivalent, PF 02/08/2013 completed Not Available [facility] 2022 18:20:36 Influenza, high-dose, quadrivalent, PF 02/06/2022 completed Not Available [facility] 18:20:36 Past Encounters Encounter ID Performer Location Encounter Start Date Encounter Closed Date Diagnosis/Indication Diagnosis SNOMED-CT Code Diagnosis ICD10 Code Diagnosis Note [id number] [facility] [place] [address] [facility] [address] [place] [address] 07/12/2020 00:00:00 07/16/2020 08:55:00 [id number] [facility] [place] [address] [facility] [address] [place] [address] 09/26/2020 00:00:00 09/28/2020 17:15:13 [id number] Evon Yoon MD [facility] Internal Med [place] [address] [facility] [address] , [facility] [place] [address] 10/18/2020 00:00:00 10/18/2020 22:40:38 [id number] Evon Yoon MD [facility] Internal [facility] [place] [address] [place] [address] 01/03/2021 00:00:00 01/25/2021 22:05:43 [id number] Evon Yoon MD [facility] Internal Med [place] [address] , [place] [address] 01/24/2021 00:00:00 02/04/2021 21:49:02 [id number] [facility] General Surgery [address] [facility], [address] [address] 01/28/2021 00:00:00 01/29/2021 14:42:35 [id number] [facility] [place] [address] [place] [address] 02/18/2021 00:00:00 02/18/2021 15:45:28 [id number] Evon Yoon MD [facility] Internal Med [place] [address] [facility] [address] , [place] [address] 03/05/2021 00:00:00 03/06/2021 23:42:00 [id number] Evon Yoon MD [facility] Internal Med [place] [address] , [place] [address] 04/23/2021 00:00:00 04/27/2021 15:55:23 [id number] [facility] [place] [address] [place] [address] 05/02/2021 00:00:00 05/02/2021 13:28:30 [id number] Evon Yoon MD [facility] Internal Med [place] [address] [place] [address] 05/23/2021 00:00:00 06/01/2021 14:18:29 [id number] [facility] [place] [address] [place] [address] 07/08/2021 00:00:00 07/09/2021 11:37:15 [id number] Ev[facility] MD [facility] [place] [address] [facility] [address] , [place] [address] 08/22/2021 00:00:00 09/14/2021 17:58:24 [id number] [facility] [place] [address] [place] [address] 09/23/2021 00:00:00 09/24/2021 10:14:51 [id number] Evon Yoon MD [facility] Internal Med [place] [address] [facility] [address] , [place] [address] 11/21/2021 00:00:00 12/15/2021 22:30:19 [id number] [facility] [place] [address] [place] [address] 12/02/2021 00:00:00 12/02/2021 21:12:55 [id number] Stewart Priest MD [facility] [place] [address] [place] [address] 12/10/2021 00:00:00 12/10/2021 12:06:03 [id number] Stewart Priest MD [facility] [place] [address] [place] [address] 01/14/2022 00:00:00 01/14/2022 10:07:56 [id number] Evon Yoon MD [facility] [place] [address] [facility] [address] , [place] [address] 02/06/2022 00:00:00 02/08/2022 14:36:19 [id number] [facility] [place] [address] [place] [address] 02/17/2022 00:00:00 02/18/2022 10:45:17 [id number] Stewart Priest MD [facility] [place] [address] [facility] [address] [place] [address] 02/25/2022 00:00:00 02/25/2022 17:04:37 [id number] Stewart Priest MD [facility] [place] [address] [facility] [address] [place] [address] 04/29/2022 00:00:00 04/30/2022 06:38:56 [id number] Josep Bey DPM [facility] [place] [address] [facility] [address] [place] [address] 05/19/2022 00:00:00 05/19/2022 10:48:36 [id number] Evon Yoon MD [facility] [address] [facility] , [facility] [place] [address] 06/19/2022 10:39:08 06/19/2022 11:47:07 Hyperlipidemia 84773056 E78.5 Renewal of prescription 873672259 Z76.0 Benign pro static hyperplasia 440889215 N40.0 Chronic at rial fibrillation 790743163 I48.20 Gastroesop hageal reflux disease without esophagitis 196890199 K21.9 [id number] Josep Bey DPM [facility] [place] [address] [facility] [address] [place] [address] 08/18/2022 10:44:34 08/18/2022 11:19:22 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 Nails were debrided and greater than 50% length and thickness where needed. Unable to cut own toenails 957437255 Z74.1 Pain in both feet 988989 2279 2954522 M79.671 M79.672 Secondary to nailsRecom mend supportive shoe gear and continue custom orthotics secondary to toe deformityM onitor for wounds daily if present seek medical attention immediatel yFollow-up in 3 months [id number] Evon Yoon MD [facility] Internal Med [place] [address] [facility] [place] [address] 10/14/2022 15:09:49 10/14/2022 15:58:17 Benign prostatic hyperplasia 612860338 N40.0 Chronic at rial fibrillation 549897952 I48.20 Gastroesop hageal reflux disease without esophagitis 218489609 K21.9 Hyperlipidemia 13806011 E78.5 [id number] Josep Bey DPM [facility] [place] [address] [place] [address] 11/17/2022 10:10:51 11/17/2022 10:42:39 Dystrophia unguium 41025296 L60.3 Nails 1 through 10 were debrided with sharp mechanical debridemen t without incident. Nails were debrided and greater than 50% length and thickness where needed. Unable to cut own toenails 731898033 Z74.1 [id number] Josep Bey DPM [facility] [place] [address] [place] [address] 02/16/2023 11:18:59 02/16/2023 12:09:48 Dystrophia unguium 13294305 L60.3 Nails 1 through 10 were debrided with sharp mechanical debridemen t without incident. Nails were debrided and greater than 50% length and thickness where needed. Unable to cut own toenails 668136658 Z74.1 Pain in both feet 733862 9701 1692965 M79.671 M79.672 Secondary to nailsRecom mend supportive shoe gear and continue custom orthotics secondary to toe deformityM onitor for wounds daily if present seek medical attention immediatel yFollow-up in 3 months [id number] Evon Yoon MD [facility] Internal Med [place] [address] [facility] [place] [address] 03/03/2023 15:08:10 03/03/2023 16:33:23 Hyperlipidemia 98739195 E78.5 Long-term drug therapy 775749922 Z79.899 Insomnia 920133514 G47.0 0 Benign pro static hyperplasia 245948774 N40.0 Chronic at rial fibrillation 508747829 I48.20 Gastroesop hageal reflux disease without esophagitis 320495086 K21.9 [id number] Evon Yoon MD [facility] Internal Med [facility] [address] [facility] [place] [address] 04/28/2023 09:42:36 04/28/2023 12:15:53 Benign prostatic hyperplasia 853228674 N40.0 Chronic at rial fibrillation 617883521 I48.20 Gastroesop hageal reflux disease without esophagitis 493619598 K21.9 [id number] Josep Bey DPM [facility] [place] [address] [facility] [address] [place] [address] 05/11/2023 12:03:36 05/19/2023 13:08:18 Ingrowing nail of toe of right foot 4850069143 1375232 L60.0 slant back procedureM onitor for new infection if present seek medical attention immediatel yIf continues to be problemati c may require partial matrix procedure Dystrophia unguium 42893 009 L60.3 Nails 1 through 10 were debrided with sharp mechanical debridemen t without incident. Nails were debrided and greater than 50% length and thickness where needed. Pain of to e of right foot 6077406449 54001 M79.953 [id number] Josep Bey DPM [facility] Podiat[facility] [place] [address] [place] [address] 08/10/2023 11:57:44 08/10/2023 14:45:52 Pain in both feet 3407939983 4986462 M79.671 M79.672 Secondary to nailsRecom mend supportive shoe gear and continue custom orthotics secondary to toe deformityM onitor for wounds daily if present seek medical attention immediatel yFollow-up in 3 months Dystrophia unguium 85811 009 L60.3 Nails 1 through 10 were debrided with sharp mechanical debridemen t without incident. Nails were debrided and greater than 50% length and thickness where needed. Unable to cut own toenails 492149618 Z74.1 [id number] Josep Bey DPM [facility] [place] [address] [facility] [address] [place] [address] 11/12/2023 12:13:03 11/12/2023 16:28:20 Dystrophia unguium 23416564 L60.3 Nails 1 through 10 were debrided with sharp mechanical debridemen t without incident. Nails were debrided and greater than 50% length and thickness where needed. Unable to cut own toenails 873963000 Z74.1 [id number] Josep Bey DPM [facility] [place] [address] [facility] [address] [place] [address] 03/21/2024 10:54:25 04/01/2024 08:21:21 Dystrophia unguium 42550871 L60.3 Nails 1 through 10 were debrided with sharp mechanical debridemen t without incident. Nails were debrided and greater than 50% length and thickness where needed. Unable to cut own toenails 480060263 Z74.1 [id number] Josep Bey DPM [facility] [place] [address] [facility] [address] [place] [address] 06/16/2024 11:52:44 06/21/2024 11:15:21 Dystrophia unguium 08194375 L60.3 Nails 1 through 10 were debrided with sharp mechanical debridemen t without incident. Nails were debrided and greater than 50% length and thickness where needed. Unable to cut own toenails 187314022 Z74.1 Health Concerns Section Related Observation LastModified by Organization Detai ls LastModified Time None Recorded Concern Status LastModified by Organization Details LastModified Time None Recorded Advance Directives Directive Y: Payers Encounter Date Sequence Insurance Name Policy Number Policy Simpson Covered Member ID Simpson Member ID Guarantor Name 05/11/2023 1 [employer] - MEDICARE SOLUTIONS - [facility] MEDICARE ADVANTAGE (MEDICARE REPLACEMENT PPO) [id number] Petar Marquez [id number] Petar Marquez 08/10/2023 1 [employer] - MEDICARE SOLUTIONS - GROUP MEDICARE ADVANTAGE (MEDICARE REPLACEMENT PPO) [id number] [place]quze [id number] Petar O Marquez 11/12/2023 1 [employer] - MEDICARE SOLUTIONS - GROUP MEDICARE ADVANTAGE (MEDICARE REPLACEMENT PPO) [id number] Petar O Marquez [id number] [place] Marquez 03/21/2024 1 [employer] - MEDICARE SOLUTIONS - GROUP MEDICARE ADVANTAGE (MEDICARE REPLACEMENT PPO) [id number] Petar O Marquez [id number] [place] Marquez 06/16/2024 1 [employer] - MEDICARE SOLUTIONS - GROUP MEDICARE ADVANTAGE (MEDICARE REPLACEMENT PPO) [id number] [place] Marquez [id number] Petar O Marquez Notes Date Note Type [...] other complaints. Josep Bey DPM [address], [place], [address], [employer] 05/11/2023 13:08:46 08/10/2023 text/html . Patient is an 82-year-old male who returns to the office for painful toenails. Patient denies any other complaints. Josep Bey DPM [address], [place], [address], [employer] 08/10/2023 14:34:05 11/12/2023 text/html Patient is an [...] other complaints. Josep Bey DPM [address], [place], [address], [employer] 11/12/2023 15:04:00 03/21/2024 text/html . Patient is an 83-year-old male he presents the office with his for routine foot care. Patient has dementia is unable to care for his feet. Patient has elongated toenails which need to be cut to prevent open wounds infection. Patient and denies any other complaints from the patient. Josep Bey DPM [address], [place], [address], [facility] [email or web address] 03/21/2024 11:57:51 06/16/2024 text/html Patient is an 83-year-old male he presents for routine foot care. Patient is unable to care for his feet in presents with his for nail care. Patient has no specific complaints. History is mainly from his . Who states he needs his nails cut. Josep Bey DPM [address], [place], [address], [facility] [email or web address] 06/16/2024 13:43:31
--- OUTSIDE RECORDS SUMMARY | 2024-08-23 12:23 | XMS_ITS | Encounter Summary ---
Author Organization [facility] Address [address] [place] [address] Phone Care Team Providers Care Driver License Technician Name Role Phone Nick Yoon MD Primary Care Provider [phone] Mark Montiel MD Unavailable [phone] Reason for Visit * Reason Comments Medication Refill Encounter Details Date Type Department Care Team (Late st Contact Info) Description 12/07/2022 Refill [facility] - Neurology [facility] [address] [place] [address] Mark Montiel MD [address] [place] [phone] Medication Refill Social History Tobacco Use Types Packs/Day Years Used Date Smoking Tobacco: Never Smokeless Tobacco: Never Alcohol Use Standard Drinks/Week Comments Not Currently 0 (1 standard drink = 0.6 oz pur e alcohol) Sex and Gender Information Value Date Recorded Sex Assigned at Not on file Legal Sex Male 11:28 AM CRUISE GUIDE Gender Identity Not on file Sexual Orientation [...] Dept 10/06/22 Office Visit Mark Montiel MD [facility] Neurology [facility]22 Office Visit Mark Montiel MD [facility] Showing recent visits within past 182 days and meeting all other requirements Future Appointments Date Type Provider Dept 01/22/23 Appointment Mark Montiel MD [facility] Neurology [facility] Showing future appointments within next 90 days and meeting all other requirements Passed - Has an encounter in the past 6 months with a depression or anxiety visit diagnosis documented in this encounter Plan of Treatment Not on file documented as of this encounter Visit Diagnoses Not on filedocumented in this encounter Care Teams Driver License Technician Relationship Specialty Start Date End Date Nick Yoon MD PCP - General Internal Medicine 03/26/22 Mark Montiel MD [address] [place] [address] Consulting Physician Neurology 01/15/23 documented as of this encounter
--- OUTSIDE RECORDS SUMMARY | 2024-08-23 12:23 | XMS_ITS | CONTINUITY OF CARE DOCUMENT ---
Author Name abby mora Address Unknown Organization [facility] Address [address] [place] [address] Phone [phone] Care Team Providers Care Scalder Name Role Phone Jacky HOLLAND, Daina Unavailable KAMILLE HOLLAND, GURMEET Hannah Unavailable INSURANCE PROVIDERS Payer name Policy type / Coverage type [employer] red [employer] party ID [employer] MEDICARE COMPLETE HMO Other [id number]
--- OUTSIDE RECORDS SUMMARY | 2024-08-23 12:23 | XMS_ITS | Encounter Summary ---
Author Organization [facility] Address [address] [place] [address] Phone Care Team Providers Care Gimp Buttonhole Machine Operator Name Role Phone Nick Yoon MD Primary Care Provider [phone] Mark Montiel MD Unavailable Reason for Visit * Reason Comments Medication Refill Encounter Details Date Type Department Care Team (Late st Contact Info) Description 03/10/2023 Refill 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 06/30/22 Office Visit Mark Montiel MD [facility] Neurology [facility] Showing recent visits within past 365 days and meeting all other requirements Future Appointments No visits were found meeting these conditions. Showing future appointments within next 90 days and meeting all other requirements RNOON BABYSITTER documented in this encounter Plan of Treatment Not on file documented as of this encounter Visit Diagnoses Not on filedocumented in this encounter Care Teams Gimp Buttonhole Machine Operator Relationship Specialty Start Date End Date Nick Yoon MD PCP - General Internal Medicine 03/26/22 Mark Montiel MD [address] [place] [address] Consulting Physician Neurology 01/15/23 documented as of this encounter
--- OUTSIDE RECORDS SUMMARY | 2024-08-23 12:24 | XMS_ITS | Data Portability ---
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 discontinue omeprazole start Pepcid all questions answered with who was present [email or web address] Not available 11/12/2023 23:07:03 03/10/2024 03/10/2024 I did discuss with her the action of donepezil that it is not supposed to cure anything it is just too post a slow progression of his dementia we will continue with all the other medications diagnosis and management of the AFib hyperlipidemia BPH have been discussed follow up in 4 months [email or web address] Not available 03/12/2024 18:40:48 07/14/2024 07/14/2024 We will continue current therapy medications we will continue follow up 4 months [email or web address] Not available 07/16/2024 21:13:12 Plan of Treatment Reminders Order Date Submit Date Provider Last Modified By Organization Details Last Modified Time Details Appointments ANY 15 2024 10:30A M Evon Yoon MD Not available Not available Not available Lab CBC w/ auto diff 2023 024 [facility], [address], [address], [place], [address], 03/16/2024 07:41:45 CMP, serum or plasma 2023 024 [facility], [address], [address], [place], [address], 03/16/2024 07:41:44 lipid panel, serum 2023 024 [facility], [address], [address], [place], [address], 03/16/2024 07:41:43 CBC w/ auto diff 2023 024 [email or web address], [address], [address], [place], [address], 12/01/2023 12:49:41 CMP, serum or plasma 2023 024 [facility], [address], [address], [place], [address], 11/25/2023 17:05:33 lipid panel, serum 2023 024 [email or web address], [address], [address], [place], [address], 12/01/2023 12:49:28 CBC w/ auto diff 2023 024 [facility], [address], [address], [place], [address], 10/22/2023 12:08:04 lipid panel, serum 2023 024 [facility], [address], [address], [place], [address], 07/27/2023 20:37:32 CMP, serum or plasma 2023 024 sherrill [facility], [address], [address], [place], [address], 10/22/2023 12:08:05 Referral urologist referral 2023 024 sherrill Bonilla MD, [address], [address], [place], [address], 10/22/2023 12:06:54 Procedures None recorded. Surgeries None recorded. Imaging None recorded. Medication Orders Eliquis 5 mg tablet 2023 024 [facility], [address] [place] [address], [address], 03/10/2024 13:11:37 tamsulosi n 0.4 mg capsule 2023 024 [facility], [address] [place] [address], [address], 03/10/2024 13:11:37 rosuvasta tin 20 mg tablet 2023 024 [facility], [address] [place] [address], [address], 03/10/2024 13:11:37 Pepcid 20 mg tablet 2023 024 [email or web address] [facility], [address], [place], [id number], 02/18/2024 15:18:59 Eliquis 5 mg tablet 2023 024 [email or web address] [facility] #25831, [address], [place], [id number], 11/12/2023 17:55:15 rosuvasta tin 20 mg tablet 2023 024 [email or web address] [facility] #13196, [address], [place], [id number], 11/12/2023 17:55:15 Patient TargetsNo targets recorded. Patient Instructions Encounter Date Encounter Id Patient Instructions Last Modified By Organization Details Last Modified Time 07/14/2024 [id number] A healthy lifestyle: care instructions [email or web address] Not available 07/14/2024 13:40:06 Reason for Referral [...] 1999 panel - Serum or Plasm a creatinine [...] 1999 panel - Serum or Plasm a bilirubin, total bilir ubin, total Not Available Not Available 07/14/2024 10:53:47 07/27/19 24 07/27/2023 Compr ehens eliel metab olic 1999 panel - Serum or Plasm a calcium calci um Not Available Not Available 07/14/2024 10:53:47 07/27/19 24 07/27/2023 Compr ehens eliel metab olic 2000 panel - Serum or Plasm a total [...] 1999 panel - Serum or Plasm a A/G [...] neutrophils, absolute count neutr ophil s, absol [place] count Not Available Not Available 07/14/2024 10:53:47 07/27/19 24 07/27/2023 CBC W Auto Diffe renti al panel - Blood lymphocytes, absolute count lymph ocyte s, absol [place] count Not Available Not Available 07/14/2024 10:53:47 07/27/19 24 07/27/2023 CBC W Auto Diffe renti al panel - Blood monocytes, absolute count high monoc ytes, absol [place] count Not Available Not Available 07/14/2024 10:53:47 07/27/19 24 07/27/2023 CBC W Auto Diffe renti al panel - Blood eosinophils, absolute count eosin ophil s, absol [place] count Not Available Not Available 07/14/2024 10:53:47 07/27/19 24 07/27/2023 CBC W Auto Diffe renti al panel - Blood basophils, absolute count basop hils, absol [place] count Not Available Not Available 07/14/2024 10:53:47 [...] ble 07/14/2024 10:53:47 11/25/19 24 11/25/2023 Lipid 1995 [...] l Not Available Not Available 07/14/2024 10:53:47 08/21/11/25/2023 Lipid 1996 panel - Serum or Plasm a LDL cholesterol, calculated LDL hernán stero l, calcu lated Not Available Not Available 07/14/2024 10:53:47 11/25/19 24 11/25/2023 Compr ehens eliel metab olic 1999 panel - Serum or Plasm a sodium sodiu m Not Available Not Available 07/14/2024 10:53:47 11/25/19 24 11/25/2023 Compr ehens eliel metab olic 1999 panel - Serum or Plasm a potassium potas sium Not Available Not Available 07/14/2024 10:53:47 11/25/19 24 11/25/2023 Compr ehens eliel metab olic 1999 panel - Serum or Plasm a chloride chlor david Not Available Not Available 07/14/2024 10:53:47 11/25/19 24 11/25/2023 Compr ehens eliel metab olic 1999 panel - Serum or Plasm a carbon dioxide carbo n dioxi de Not Available Not Available 07/14/2024 10:53:47 11/25/19 24 11/25/2023 Compr ehens eliel metab olic 2000 panel - Serum or Plasm a anion gap low anion gap Not Available Not Available 07/14/2024 10:53:47 11/25/19 24 11/25/2023 Compr ehens eliel metab olic 1999 panel - Serum or Plasm a glucose high gluco se Not Available Not Available 07/14/2024 10:53:47 11/25/19 24 11/25/2023 Compr ehens eliel metab olic 1999 panel - Serum or Plasm a BUN high BUN Not Available Not Availa ble 07/14/2024 10:53:47 11/25/19 24 11/25/2023 Compr ehens eliel metab olic 1999 panel - Serum or Plasm a creatinine [...] 2000 panel - Serum or Plasm a alanine [...] 2000 panel - Serum or Plasm a total [...] ytes Not Available Not Available 07/14/2024 10:53:47 08/21/20 24 11/25/2023 CBC W Auto Diffe renti [...] neutrophils, absolute count neutr ophil s, absol [place] count Not Available Not Available 07/14/2024 10:53:47 11/25/19 24 11/25/2023 CBC W Auto Diffe renti al panel - Blood lymphocytes, absolute count lymph ocyte s, absol [place] count Not Available Not Available 07/14/2024 10:53:47 11/25/19 24 11/25/2023 CBC W Auto Diffe renti al panel - Blood monocytes, absolute count monoc ytes, absol [place] count Not Available Not Available 07/14/2024 10:53:47 11/25/19 24 11/25/2023 CBC W Auto Diffe renti al panel - Blood eosinophils, absolute count eosin ophil s, absol [place] count Not Available Not Available 07/14/2024 10:53:47 11/25/19 24 11/25/2023 CBC W Auto Diffe renti al panel - Blood basophils, absolute count basop hils, absol [place] count Not Available Not Available 07/14/2024 10:53:47 [...] 143 mg/dL 100-19 9 Not Available [facility] ([facility]) [address] [place], [address], 03/16/2024 07:41:43 03/15/20 24 03/16/2024 LIPID PANEL triglyceride s 188 mg/dL 0-149 above high normal Not Available [facility] ([facility]) [address] [place], [address], 03/16/2024 07:41:43 03/15/20 24 03/16/2024 LIPID PANEL HDL cholesterol 35 mg/dL >39 below low normal Not Available [facility] ([facility]) [address] [place], [address], 03/16/2024 07:41:43 03/15/20 24 03/16/2024 LIPID PANEL VLDL cholesterol simi 32 mg/dL 5-40 Not Available [facility] ([facility]) [address] [place], [address], 03/16/2024 07:41:43 03/15/20 24 03/16/2024 LIPID PANEL LDL chol calc ([facility]) 76 mg/dL 0-99 Not Available [facility] ([facility]) [address] [place], [address], 03/16/2024 07:41:43 03/15/20 24 03/16/2024 COMP. METAB OLIC PANEL (14) glucose 102 mg/dL 70-99 above high normal Not Available [facility] ([facility]) [address] [place], [address], 03/16/2024 07:41:44 03/15/20 24 03/16/2024 COMP. METAB OLIC PANEL (14) BUN 27 mg/dL 8-27 Not Available [facility] ([facility]) [address] [facility] [place], [address], 03/16/2024 07:41:44 03/15/20 24 03/16/2024 COMP. METAB OLIC PANEL (14) creatinine 1.28 mg/dL 0.76-1 .27 above high normal Not Available [facility] ([facility]) [address] [facility] [place], [address], 03/16/2024 07:41:44 03/15/20 24 03/16/2024 COMP. METAB OLIC PANEL (14) eGFR 55 mL/mi n/1.7 3 >59 below low normal Not Available [facility] ([facility]) [address] [facility], [place], [address], 03/16/2024 07:41:44 03/15/20 24 03/16/2024 COMP. METAB OLIC PANEL (14) BUN/creatini ne ratio 21 10-24 Not Available [facility] ([facility]) [address] [place], [address], 03/16/2024 07:41:44 03/15/20 24 03/16/2024 COMP. METAB OLIC PANEL (14) sodium 143 mmol/ L 134-14 4 Not Available [facility] ([facility]) [address] [place], [address], 03/16/2024 07:41:44 03/15/20 24 03/16/2024 COMP. METAB OLIC PANEL (14) potassium 4.9 mmol/ L 3.5-5. 2 Not Available [facility] ([facility]) [address] [place], [address], 03/16/2024 07:41:44 03/15/20 24 03/16/2024 COMP. METAB OLIC PANEL (14) chloride 105 mmol/ L 96-106 Not Available [facility] ([facility]) [address] [place], [address], 03/16/2024 07:41:44 03/15/20 24 03/16/2024 COMP. METAB OLIC PANEL (14) carbon dioxide, total 23 mmol/ L Not Available [facility] ([facility]) [address] [place], [address], 03/16/2024 07:41:44 03/15/20 24 03/16/2024 COMP. METAB OLIC PANEL (14) calcium 9.1 mg/dL 8.6-10 .2 Not Available [facility] ([facility]) [address] [place], [address], 03/16/2024 07:41:44 03/15/20 24 03/16/2024 COMP. METAB OLIC PANEL (14) protein, total 7.1 g/dL 6.0-8. 5 Not Available [facility] ([facility]) [address] [place], [address], 03/16/2024 07:41:44 03/15/20 24 03/16/2024 COMP. METAB OLIC PANEL (14) albumin 4.4 g/dL 3.7-4. 7 Not Available [facility] ([facility]) [address] [place], [address], 03/16/2024 07:41:44 03/15/20 24 03/16/2024 COMP. METAB OLIC PANEL (14) globulin, total 2.7 g/dL 1.5-4. 5 Not Available [facility] ([facility]) [address] [place], [address], 03/16/2024 07:41:44 03/15/20 24 03/16/2024 COMP. METAB OLIC PANEL (14) bilirubin, total 0.5 mg/dL 0.0-1. 2 Not Available [facility] ([facility]) [address] [place], [address], 03/16/2024 07:41:44 03/15/20 24 03/16/2024 COMP. METAB OLIC PANEL (14) alkaline phosphatase 95 IU/L 44-121 Not Available [facility] ([facility]) [address] [facility], [place], [address], 03/16/2024 07:41:44 03/15/20 24 03/16/2024 COMP. METAB OLIC PANEL (14) AST (SGOT) 19 IU/L 0-40 Not Available [facility] ([facility]) [address] [facility], [place], [address], 03/16/2024 07:41:44 03/15/20 24 03/16/2024 COMP. METAB OLIC PANEL (14) ALT (SGPT) 14 IU/L 0-44 Not Available [facility] ([facility]) [address] [facility], [place], [address], 03/16/2024 07:41:44 03/15/20 24 03/16/2024 CBC WITH DIFFE RENTI AL/PL ATELE T WBC 11.6 x10e3 /uL 3.4-10 .8 above high normal Not Available [facility] ([facility]) [address] [facility], [place], [address], 03/16/2024 07:41:45 03/15/20 24 03/16/2024 CBC WITH DIFFE RENTI AL/PL ATELE T RBC 4.18 x10e6 /uL 4.14-5 .80 Not Available [facility] ([facility]) [address] [place], [address], 03/16/2024 07:41:45 03/15/20 24 03/16/2024 CBC WITH DIFFE RENTI AL/PL ATELE T hemoglobin 14.1 g/dL 13.0-1 7.7 Not Available [facility] ([facility]) [address] [place], [address], 03/16/2024 07:41:45 03/15/20 24 03/16/2024 CBC WITH DIFFE RENTI AL/PL ATELE T hematocrit 42.7 % 37.5-5 1.0 Not Available [facility] ([facility]) [address] [facility], [place], [address], 03/16/2024 07:41:45 03/15/20 24 03/16/2024 CBC WITH DIFFE RENTI AL/PL ATELE T MCV 102 fL 79-97 above high normal Not Available [facility] ([facility]) [address] [facility], [place], [address], 03/16/2024 07:41:45 03/15/20 24 03/16/2024 CBC WITH DIFFE RENTI AL/PL ATELE T MCH 33.7 pg 26.6-3 3.0 above high normal Not Available [facility] ([facility]) [address] [facility], [place], [address], 03/16/2024 07:41:45 03/15/20 24 03/16/2024 CBC WITH DIFFE RENTI AL/PL ATELE T MCHC 33.0 g/dL 31.5-3 5.7 Not Available [facility] ([facility]) [address] [facility], [place], [address], 03/16/2024 07:41:45 03/15/20 24 03/16/2024 CBC WITH DIFFE RENTI AL/PL ATELE T RDW 12.5 % 11.6-1 5.4 Not Available [facility] ([facility]) [address] [place], [address], 03/16/2024 07:41:45 03/15/20 24 03/16/2024 CBC WITH DIFFE RENTI AL/PL ATELE T platelets 285 x10e3 /uL 150-45 0 Not Available [facility] ([facility]) [address] [place], [address], 03/16/2024 07:41:45 03/15/20 24 03/16/2024 CBC WITH DIFFE RENTI AL/PL ATELE T neutrophils 70 % notest ab. Not Available [facility] ([facility]) [address] [facility], [place], [address], 03/16/2024 07:41:45 03/15/20 24 03/16/2024 CBC WITH DIFFE RENTI AL/PL ATELE T lymphs 14 % notest ab. Not Available [facility] ([facility]) [address] [facility], [place], [address], 03/16/2024 07:41:45 03/15/20 24 03/16/2024 CBC WITH DIFFE RENTI AL/PL ATELE T monocytes 11 % notest ab. Not Available [facility] ([facility]) [address] [facility], [place], [address], 03/16/2024 07:41:45 03/15/20 24 03/16/2024 CBC WITH DIFFE RENTI AL/PL ATELE T eos 3 % notest ab. Not Available [facility] ([facility]) [address] [facility], [place], [address], 03/16/2024 07:41:45 03/15/20 24 03/16/2024 CBC WITH DIFFE RENTI AL/PL ATELE T basos 1 % notest ab. Not Available [facility] ([facility]) [address] [facility], [place], [address], 03/16/2024 07:41:45 03/15/20 24 03/16/2024 CBC WITH DIFFE RENTI AL/PL ATELE T neutrophils (absolute) 8.3 x10e3 /uL 1.4-7. 0 above high normal Not Available [facility] ([facility]) [address] [facility], [place], [address], 03/16/2024 07:41:45 03/15/20 24 03/16/2024 CBC WITH DIFFE RENTI AL/PL ATELE T lymphs (absolute) 1.6 x10e3 /uL 0.7-3. 1 Not Available [facility] ([facility]) [address] [facility], [place], [address], 03/16/2024 07:41:45 03/15/20 24 03/16/2024 CBC WITH DIFFE RENTI AL/PL ATELE T monocytes(ab solute) 1.2 x10e3 /uL 0.1-0. 9 above high normal Not Available [facility] ([facility]) [address] [facility], [place], [address], 03/16/2024 07:41:45 03/15/20 24 03/16/2024 CBC WITH DIFFE RENTI AL/PL ATELE T eos (absolute) 0.4 x10e3 /uL 0.0-0. 4 Not Available [facility] ([facility]) [address] [facility], [place], [address], 03/16/2024 07:41:45 03/15/20 24 03/16/2024 CBC WITH DIFFE RENTI AL/PL ATELE T baso (absolute) 0.1 x10e3 /uL 0.0-0. 2 Not Available [facility] ([facility]) [address] [place], [address], 03/16/2024 07:41:45 03/15/20 24 03/16/2024 CBC WITH DIFFE RENTI AL/PL ATELE T immature granulocytes 1 % notest ab. Not Available [facility] ([facility]) [address] [place], [address], 03/16/2024 07:41:45 03/15/20 24 03/16/2024 CBC WITH DIFFE RENTI AL/PL ATELE T immature grans (abs) 0.1 x10e3 /uL 0.0-0. 1 Not Available [facility] ([facility]) [address] [place], [address], 03/16/2024 07:41:45 04/19/19 25 04/19/2024 CT, brain , w/o contr ast No observ ation record ed. [address], [place], [address], 04/20/2024 09:17:17 04/19/19 25 04/19/2024 CT, cervi simi spine , w/o contr ast No observ ation record ed. [address], [place], [address], 04/20/2024 09:16:36 04/19/1904/19/2024 CT, chest + abdom en + pelvi s, w/ contr ast No observ ation record ed. [address], [place], [address], 04/20/2024 09:15:52 07/27/19 25 07/26/2024 CT, brain , w/o contr ast No observ ation record ed. [address], [place], [address], 07/26/2024 13:45:13 07/27/19 25 07/26/2024 XR, chest , 2 view No observ ation record ed. [address], [place], [address], 07/26/2024 13:45:49 07/27/1907/26/2024 CT, cervi simi spine , w/o contr ast No observ ation record ed. [address], [place], [address], 07/26/2024 13:46:16 07/27/19 25 07/26/2024 XR, pelvi s, 1 or 2 view No observ ation record ed. [address], [place], [address], 07/26/2024 13:46:51 07/27/19 25 07/26/2024 CT, abdom en + pelvi s, w/o contr ast No observ ation record ed. [address], [place], [address], 07/26/2024 13:47:10 07/29/19 25 07/28/2024 US, duple x, carot id arter y No observ ation record ed. [place] [id number] [facility] [address], [place], [address], 07/29/2024 10:57:53 07/29/19 25 07/28/2024 stres s echoc ardio gram with doppl er color flow (PROC ) No observ ation record ed. [address], [place], [address], 07/29/2024 10:59:22 08/06/19 25 08/05/2024 XR, chest No observ ation record ed. [address], [place], [address], 08/16/2024 22:41:07 Result Notes None recorded. Problems Name Problem SNOMED Code Status Onset Date Resolution Date Notes Provider Name and Address Organization Details Recorded Time Nocturia 156118810 Active 2023 Evon Yoon MD Attn: Jv cid,[address] [facility], [place], [address], [facility] 4 22:23:33 Hyperlipidemia 90876394 Active 2023 Evon Yoon MD Attn: Jv cid,[address] [facility], [place], [address], [place] [facility] 4 22:23:34 Dementia 62695790 Active 2023 Evon Yoon MD Attn: Jv cid,[address] [facility], [place], [address], [facility] - [facility] 4 22:24:02 Atrial fibrillation 25815347 Active 2023 Evon Yoon MD Attn: Jv cid,[address] [facility], [place], [address], [facility] SI 22:24:10 Problem Notes None recorded. Procedures Surgical History Date Name Laterality Status Provider Name and Address Organization Details Recorded Time Hernia Repair completed Trinidad Christensen MA [facility] 07/23/2023 11:26:38 Imaging Results Imaging Date Name Status LastModified by Organization Details LastModified Time 04/19/2024 CT, brain, w/o contrast completed [address], [address], 04/20/2024 09:17:17 04/19/2024 CT, cervical spine, w/o contrast completed [address], [address], 04/20/2024 09:16:36 04/19/2024 CT, chest + abdomen + pelvis, w/ contrast completed [address], [address], 04/20/2024 09:15:52 07/26/2024 CT, brain, w/o contrast completed [address], [address], 07/26/2024 13:45:13 07/26/2024 XR, chest, 2 view completed [address] [place] [address], [address], 07/26/2024 13:45:49 07/26/2024 CT, cervical spine, w/o contrast completed [address], [address], 07/26/2024 13:46:16 07/26/2024 XR, pelvis, 1 or 2 view completed [address], [address], 07/26/2024 13:46:51 07/26/2024 CT, abdomen + pelvis, w/o contrast completed [address], [place], [address], 07/26/2024 13:47:10 07/28/2024 US, duplex, carotid artery completed [address], [place], [address], 07/29/2024 10:57:53 07/28/2024 stress echocardiogram with doppler color flow (PROC) completed [address], [place], [address], 07/29/2024 10:59:22 08/05/2024 XR, chest completed [address], [place], [address], 08/16/2024 22:41:07 Procedure Notes None recorded. Medical Equipment None Reported. Allergies No known drug allergies Medications Name Sig Start Date Stop Date Status Note LastModified by Organization Details LastModified Time quetiapin e 25 mg tablet TAKE 1 TABLET BY MOUTH EVERYDAY AT BEDTIME 07/22 completed Not Available Not Available Not Available amoxicill in 500 mg capsule TAKE [...] Not Available azithromy deb 250 mg tablet 07/14 completed Not Available Not Available Not Available donepezil 10 mg tablet 07/14 completed Not Available Not Available Not Available famotidin e 20 mg tablet Take 1 tablet every day by oral route. 02/17 completed Not Available Not Available Not Available tamsulosi n 0.4 mg capsule Take 1 capsule every day by oral route at bedtime. 2024 active Not Available Not Available Not Avai lable omeprazol e 20 mg capsule,d elayed release take 1 capsule daily active Not Available Not Available No t Available midodrine 2.5 mg tablet Take 1 tablet 3 times a day by oral route. active started in hospital Not Available Not Available Not Available rosuvasta tin 20 mg tablet Take 1 tablet every day by oral route. active Not Available Not Available No t Available mirtazapi ne 7.5 mg tablet TAKE ONE TABLET BY MOUTH NIGHTLY 07/22 completed Not Available Not Available Not Available Eliquis 5 mg tablet Take 1 tablet twice a day by oral route. 2024 active Not Available Not Available Not Avai lable pyridosti gmine bromide 30 mg tablet Take 1 tablet 3 times a day by oral route. active started in hospital Not Available Not Available Not Available Vitals Date Recorded Body weight Body mass index (BMI) Body height Heart rate Body temperature Oxygen saturation Oxygen saturation in Arterial blood by Pulse oximetry Systolic blood pressure Diastolic blood pressure Provider Name and Address Organization Details Last Updated DateTime 4 [address].8 g 25.6 kg/m2 182.88 cm 74 /min 98.2 [degF] 99 % 99 % 126 mm[Hg] 82 mm[Hg] Trinidad Christensen MA [place] - [facility] 4 11:31:57 Date Recorded Body height Body mass index (BMI) Body weight Heart rate Oxygen saturation Oxygen saturation in Arterial blood by Pulse oximetry Systolic blood pressure Diastolic blood pressure Provider Name and Address Organization Details Last Updated DateTime 4 182.88 cm 25.4 kg/m2 46623.9 2 g 70 /min 99 % 99 % 124 mm[Hg] 78 mm[Hg] Britt Whitman MA [place] - [facility] 4 15:24:26 Date Recorded Body height Body mass index (BMI) Body weight Heart rate Oxygen saturation Oxygen saturation in Arterial blood by Pulse oximetry Systolic blood pressure Diastolic blood pressure Provider Name and Address Organization Details Last Updated DateTime 4 182.88 cm 25.1 kg/m2 76352.8 7 g 73 /min 98 % 98 % 126 mm[Hg] 62 mm[Hg] Shelley Sutherland MA ID - [facility] 4 11:09:16 Date Recorded Body height Body mass index (BMI) Body weight Heart rate Oxygen saturation Oxygen saturation in Arterial blood by Pulse oximetry Systolic blood pressure Diastolic blood pressure Provider Name and Address Organization Details Last Updated DateTime 182.88 cm 23.5 kg/m2 33025.2 8 g 81 /min 100 % 100 % 114 mm[Hg] 74 mm[Hg] Kelly Wren MA [place] - [facility] 11:13:14 Social History Question Answer Notes LastModified by Organizat ion Details LastModified Time Tobacco Smoking Status Former Smoker Trinidad Christensen MA null, [place] - [facility] 07/23/2023 11:27:12 Do You Have An Advance Directive? Yes Information not available 11/12/2023 Are You Blind Or Do You Have [...] No Information not available 03/10/2024 Are You Deaf Or Do You Have [...] PPD Information not available 07/23/2023 Do You Use Sunscreen Routinely? Yes Information not available 03/10/2024 Has Tobacco Cessation Counseling Been Provided? No Information not available 11/12/2023 Sex: Unknown Functional Status Question Answer Note LastModified by Organizat ion Details LastModified Time Do you use any illicit or recreational drugs? No Information not available 11/12/2023 Do you or have you ever used any other forms of tobacco or nicotine? No Information not available 11/12/2023 What is your level of alcohol consumption? None Information not available 07/23/2023 Are you currently employed? No Information not available 11/12/2023 Are you able to care for yourself? Yes Information not available 07/23/2023 Mental Status Question Answer Note LastModified by Organization D etails LastModified Time Do you feel stressed (tense, restless, nervous, or anxious, or unable to sleep at night)? [id number] Information not available 07/23/2023 Family History Relationship Description Onset Age of [...] available 07/23/2023 11:28:38 Medical History Condition Response High Cholesterol Y Skin Problems Y Immunizations Vaccine Type Date Status Note Provider Nam e and Address Organization Details Recorded Time Influenza, high-dose, quadrivalent, PF 01/06/2019 completed PEGGY [place], [place] - [facility] 03/10/2024 11:09:20 Influenza, high-dose, quadrivalent, PF 02/06/2022 [place] [facility] 03/10/2024 11:09:20 Influenza, high-dose, trivalent, PF 01/06/2018 completed PEGG[place] [facility] 03/10/2024 11:09:20 Influenza, high-dose, trivalent, PF 01/20/2016 completed Shelley Sutherland [place] [facility] 03/10/2024 11:09:20 Influenza, high-dose, trivalent, PF 02/08/2013 completed Shelley [place] [facility] 03/10/2024 11:09:20 Influenza, high-dose, trivalent, PF 02/20/2017 completed PEGG[place] [facility] 03/10/2024 11:09:21 Influenza, split virus, trivalent, PF 02/15/2014 completed Shelley Sutherland [place], [place] - [facility] 03/10/2024 11:09:21 Past Encounters Encounter ID Performer Location Encounter Start Date Encounter Closed Date Diagnosis/Indication Diagnosis SNOMED-CT Code Diagnosis ICD10 Code Diagnosis Note [id number] Evon Yoon MD [facility] [place] [address] [place] [address] 07/23/2023 11:02:26 07/23/2023 12:16:28 Nocturia 338993553 R35.1 Hyperlipidemia 45824302 E78.5 Long-term drug therapy 482206073 Z79.899 Dementia 40839723 F03.92 Atrial fibrillation 4943 6004 I48.91 [id number] Evon Yoon MD [facility] [place] [address] [place] [address] [place] [address] 11/12/2023 14:42:58 11/12/2023 16:25:31 Hyperlipidemia 88325358 E78.5 Long-term drug therapy 108139191 Z79.899 Atrial fibrillation 4943 6004 I48.91 Gastroesop hageal reflux disease without esophagitis 659541914 K21.9 Dementia 99483259 F03.92 [id number] Evon Yoon MD [facility] [place] [address] [place], [place] [address] [address] 03/10/2024 10:36:45 03/10/2024 12:01:04 Body mass index 25-29 - overweight 612053740 Z68.25 Hyperlipidemia 98383211 E78.5 Atrial fibrillation 4943 6004 I48.91 Renewal of prescription 285094018 Z76.0 Dementia 24900130 F03.92 [id number] Evon Yoon MD [facility] [address] [place] [address] 07/14/2024 10:42:28 07/14/2024 11:55:30 Body mass index 20-24 - normal 811060843 Z68.23 Overweight 435113989 E66 .3 Hyperlipidemia 14064619 E78.5 Dementia 77409390 F03.92 Atrial fibrillation 4943 6004 I48.91 Health Concerns Section Related Observation LastModified by Organization Detai ls LastModified Time None Recorded Concern Status LastModified by Organization Details LastModified Time None Recorded Advance Directives Directive Y: Payers Encounter Date Sequence Insurance Name Policy Number Policy Simpson Covered Member ID Simpson Member ID Guarantor Name 07/23/[address] [facility] (MEDICARE REPLACEMENT/A DVANTAGE - PPO) [id number] Closter O Marquez [id number] Closter O Marquez 11/12/[address] [facility] (MEDICARE REPLACEMENT/A DVANTAGE - PPO) [id number] Closter O Marquez [id number] Petar O Marquez 03/10/[address] [facility] (MEDICARE REPLACEMENT/A DVANTAGE - PPO) [id number] Petar O Marquez [id number] Petar O Marquez 07/14/[address] [facility] (MEDICARE REPLACEMENT/A DVANTAGE - PPO) [id number] Closter O Marquez [id number] [facility] Notes Date Note Type Note Provider Name and Address Organization Details Recorded Time 07/23/2023 text/html 82-year-old whit e male comes in with his he has a history of hyperlipidemia dementia GERD BPH atrial fibrillation and ongoing memory deterioration since he had COVID has had some hallucinations at times they are seeing the neurologist tomorrow he is also developed 4-5 times a night nocturia despite tamsulosin. Evon Yoon MD Attn: [address] [place], [address], [facility] 07/23/2023 22:24:32 11/12/2023 text/html 82-year-old whit e male comes in with his he has a history of hyperlipidemia dementia GERD BPH atrial fibrillation and ongoing memory deterioration since he had COVID has had some hallucinations at times they are seeing the neurologist tomorrow he is also developed 4-5 times a night nocturia despite tamsulosin. Evon Yoon MD Attn: [address] [facility], [place], [address], [facility] 11/12/2023 23:07:23 03/10/2024 text/html he is in [...] difference Evon Yoon MD Attn: [address] [facility], [place], [address], [facility] 03/12/2024 18:41:15 07/14/2024 text/html Atrial fibrillat ion there has not been any chest pain or palpitations no heart failure symptoms. GERD has been doing fine taking the rosuvastatin watching diet for dyslipidemia his BPH has been stable there has been no behavioral disturbances the quit giving him did not [place] felt that he was having side effects from it Evon Yoon MD Attn: [address] [place], [address], [facility] [place] 07/16/2024 21:13:37
--- OUTSIDE RECORDS SUMMARY | 2024-08-23 15:44 | XMS_ITS | Data Portability ---
Author Organization [place] [employer] [facility], Main Office Address [address] [place] [address] Care Team Providers Care Tattooer Name Role Phone YOON EVON Primary Care Provider EVON YOON Referring Provider [phone] Assessment Encounter Date Assessment Date Assessment LastModified by Organization Details LastModified Time 05/11/2023 05/11/2023 This note is dictated and transcribed by [employer]. Pathology Laboratory Technologist variances may occur. Despite proofreading, typographical errors may occur. Occasional wrong-word or 'cchre-o-airj' substitutions may have occurred due to the inherent limitations of voice recording. Read the chart carefully and recognize, using context, where substitutions have occurred. Not available 05/11/2023 13:08:25 08/10/2023 08/10/2023 This note is dictated and transcribed by [employer]. Pathology Laboratory Technologist variances may occur. Despite proofreading, typographical errors may occur. Occasional wrong-word or 'etqzm-f-rivq' substitutions may have occurred due to the inherent limitations of voice recording. Read the chart carefully and recognize, using context, where substitutions have occurred. Not available 08/10/2023 14:33:02 11/12/2023 11/12/2023 This note is dictated and transcribed by [employer]. Pathology Laboratory Technologist variances may occur. Despite proofreading, typographical errors may occur. Occasional wrong-word or 'micif-f-gpom' substitutions may have occurred due to the inherent limitations of voice recording. Read the chart carefully and recognize, using context, where substitutions have occurred. Not available 11/12/2023 15:03:48 03/21/2024 03/21/2024 This note is dictated and transcribed by [employer]. Pathology Laboratory Technologist variances may occur. Despite proofreading, typographical errors may occur. Occasional wrong-word or 'tgooz-s-otmn' substitutions may have occurred due to the inherent limitations of voice recording. Read the chart carefully and recognize, using context, where substitutions have occurred. Not available 03/21/2024 11:55:22 06/16/2024 06/16/2024 This note is dictated and transcribed by [employer]. Pathology Laboratory Technologist variances may occur. Despite proofreading, typographical errors may occur. Occasional wrong-word or 'rfvdo-n-vxkn' substitutions may have occurred due to the [...] 10.3 x10'3 /uL 4.2-10 .8 Not Available [facility] (Lab) [address] [place], [address], 07/27/2023 13:42:11 07/27/19 24 07/27/2023 CBC/C OMPLE TE BLD COUNT W/DIF F red blood cells 4.40 x10'6 /uL 4.10-5 .80 Not Available [facility] (Lab) [address] [place], [address], 07/27/2023 13:42:11 07/27/19 24 07/27/2023 CBC/C OMPLE TE BLD COUNT W/DIF F hemoglobin 14.8 g/dL 13.2-1 7.0 Not Available [facility] (Lab) [address] [facility] [place], [address], 07/27/2023 13:42:11 07/27/19 24 07/27/2023 CBC/C OMPLE TE BLD COUNT W/DIF F hematocrit 44.8 % 39.3-5 0.0 Not Available [facility] (Lab) [address] [place], [address], 07/27/2023 13:42:11 07/27/19 24 07/27/2023 CBC/C OMPLE TE BLD COUNT W/DIF F mean red cell volume 101.8 fL 80.0-9 7.0 high Not Available [facility] (Lab) [address] [place], [address], 07/27/2023 13:42:11 07/27/19 24 07/27/2023 CBC/C OMPLE TE BLD COUNT W/DIF F mean red cell hemoglobin 33.6 pg 27.0-3 3.0 high Not Available [facility] (Lab) [address] [place], [address], 07/27/2023 13:42:11 07/27/19 24 07/27/2023 CBC/C OMPLE TE BLD COUNT W/DIF F mean RBC HGB concentratio n 33.0 g/dL 31.0-3 6.0 Not Available [facility] (Lab) [address] [place], [address], 07/27/2023 13:42:11 07/27/19 24 07/27/2023 CBC/C OMPLE TE BLD COUNT W/DIF F red cell distribution width 13.7 % 11.8-1 5.5 Not Available [facility] (Lab) [address] [place], [address], 07/27/2023 13:42:11 07/27/19 24 07/27/2023 CBC/C OMPLE TE BLD COUNT W/DIF F platelets 276 x10'3 /uL 150-40 0 Not Available [facility] (Lab) [address] [place], [address], 07/27/2023 13:42:11 07/27/19 24 07/27/2023 CBC/C OMPLE TE BLD COUNT W/DIF F mean platelet volume 10.5 fL 9.0-12 .4 Not Available [facility] (Lab) [address] [place], [address], 07/27/2023 13:42:11 07/27/19 24 07/27/2023 CBC/C OMPLE TE BLD COUNT W/DIF F neutrophils 73.8 % 39.0-7 2.0 high Not Available [facility] (Lab) [address] [place], [address], 07/27/2023 13:42:11 07/27/19 24 07/27/2023 CBC/C OMPLE TE BLD COUNT W/DIF F lymphocytes 12.9 % 16.0-4 7.0 low Not Available [facility] (Lab) [address] [place], [address], 07/27/2023 13:42:11 07/27/19 24 07/27/2023 CBC/C OMPLE TE BLD COUNT W/DIF F monocytes 10.1 % 5.0-12 .0 Not Available [facility] (Lab) [address] [place], [address], 07/27/2023 13:42:11 07/27/19 24 07/27/2023 CBC/C OMPLE TE BLD COUNT W/DIF F eosinophils 2.1 % 1.0-7. 0 Not Available [facility] (Lab) [address] [place], [address], 07/27/2023 13:42:11 07/27/19 24 07/27/2023 CBC/C OMPLE TE BLD COUNT W/DIF F basophils 0.6 % 0.0-2. 0 Not Available [facility] (Lab) [address] [place], [address], 07/27/2023 13:42:11 07/27/19 24 07/27/2023 CBC/C OMPLE TE BLD COUNT W/DIF F immature granulocytes 0.5 % 0.00-0 .50 Not Available [facility] (Lab) [address] [place], [address], 07/27/2023 13:42:11 07/27/19 24 07/27/2023 CBC/C OMPLE TE BLD COUNT W/DIF F neutrophils, absolute count 7.63 x10'3 /uL 1.5-8. 0 Not Available [facility] (Lab) [address] [place], [address], 07/27/2023 13:42:11 07/27/19 24 07/27/2023 CBC/C OMPLE TE BLD COUNT W/DIF F lymphocytes, absolute count 1.33 x10'3 /uL 1.07-3 .43 Not Available [facility] (Lab) [address] [place], [address], 07/27/2023 13:42:11 07/27/19 24 07/27/2023 CBC/C OMPLE TE BLD COUNT W/DIF F monocytes, absolute count 1.04 x10'3 /uL 0.29-0 .99 high Not Available [facility] (Lab) [address] [place], [address], 07/27/2023 13:42:11 07/27/19 24 07/27/2023 CBC/C OMPLE TE BLD COUNT W/DIF F eosinophils, absolute count 0.22 x10'3 /uL 0.02-0 .53 Not Available [facility] (Lab) [address] [place], [address], 07/27/2023 13:42:11 07/27/19 24 07/27/2023 CBC/C OMPLE TE BLD COUNT W/DIF F basophils, absolute count 0.06 x10'3 /uL 0.01-0 .08 Not Available [facility] (Lab) [address] [place], [address], 07/27/2023 13:42:11 07/27/19 24 07/27/2023 CBC/C OMPLE TE BLD COUNT W/DIF F immature granulocytes ,absolute 0.05 x10'3 /uL 0.00-0 .05 Not Available [facility] (Lab) [address] [place], [address], 07/27/2023 13:42:11 07/27/19 24 07/27/2023 CBC/C OMPLE TE BLD COUNT W/DIF F nucleated red blood cells 0.0 % -0 Not Available [facility] (Lab) [address] [place], [address], 07/27/2023 13:42:11 07/27/19 24 07/27/2023 CBC/C OMPLE TE BLD COUNT W/DIF F NRBC# 0.00 x10'3 /uL Not Available [facility] (Lab) [address] [place], [address], 07/27/2023 13:42:11 07/27/19 24 07/27/2023 LIPID PANEL cholesterol 144 mg/dL 140-19 9 NIH MARLENI NSUS RECOM MENDA TION FOR CLARE STERO L: ADULT CHILD LOW RISK: <200 <170 BORDE RLINE : <200- 239 ----- HIGH RISK: >240 >200 Not Available [facility] (Lab) [address] [place], [address], 07/27/2023 19:00:03 07/27/19 24 07/27/2023 LIPID PANEL triglyceride s 249 mg/dL 0-150 high NIH MARLENI NSUS REPOR T RECOM MENDA TION FOR TRIGL YCERI MARIA C: ADULT CHILD LOW RISK: <150 ----- BODER LINE: 150-1 99 ----- HIGH RISK: >200 ----- Not Available [facility] (Lab) [address] [place], [address], 07/27/2023 19:00:03 07/27/19 24 07/27/2023 LIPID PANEL HDL cholesterol 31 mg/dL 40- low Not Available [facility] (Lab) [address] [place], [address], 07/27/2023 19:00:03 07/27/19 24 07/27/2023 LIPID PANEL [...] WILL NOT BE REPOR CHACHA. Not Available [facility] (Lab) [address] [place], [address], 07/27/2023 19:00:03 07/27/19 24 07/27/2023 COMPR EHENS GUEVARA METAB OLIC PANEL sodium 137 mmol/ L 137-14 5 Not Available [facility] (Lab) [address] [place], [address], 07/27/2023 19:00:08 07/27/19 24 07/27/2023 COMPR EHENS GUEVARA METAB OLIC PANEL potassium 4.5 mmol/ L 3.5-5. 1 Not Available [facility] (Lab) [address] [place], [address], 07/27/2023 19:00:08 07/27/19 24 07/27/2023 COMPR EHENS GUEVARA METAB OLIC PANEL chloride 104 mmol/ L 98-107 Not Available [facility] (Lab) [address] [place], [address], 07/27/2023 19:00:08 07/27/19 24 07/27/2023 COMPR EHENS GUEVARA METAB OLIC PANEL carbon dioxide 30 mmol/ L 22-30 Not Available [facility] (Lab) [address] [place], [address], 07/27/2023 19:00:08 07/27/19 24 07/27/2023 COMPR EHENS GUEVARA METAB OLIC PANEL anion gap 7.5 mmol/ L 14- low Not Available [facility] (Lab) [address] [place], [address], 07/27/2023 19:00:08 07/27/19 24 07/27/2023 COMPR EHENS GUEVARA METAB OLIC PANEL glucose 130 mg/dL 70-99 high Not Available [facility] (Lab) [address] [place], [address], 07/27/2023 19:00:08 07/27/19 24 07/27/2023 COMPR EHENS GUEVARA METAB OLIC PANEL BUN 26 mg/dL 8-19 high Not Available [facility] (Lab) [address] [place], [address], 07/27/2023 19:00:08 07/27/19 24 07/27/2023 COMPR EHENS GUEVARA METAB OLIC PANEL creatinine 1.40 mg/dL 0.66-1 .25 high Not Available [facility] (Lab) [address] [place], [address], 07/27/2023 19:00:08 07/27/19 24 07/27/2023 COMPR EHENS GUEVARA METAB OLIC PANEL GFR 48 Refer ence Range : [place] ge GFR Healt hy Adult : >60 [...] calcu lator is avail able on the [facility] websi te: https ://benson w.soco haas.o rg/pr ofess ional s/kdo qi/gf r_cal culat or Not Available [facility] (Lab) [address] [place], [address], 07/27/2023 19:00:08 07/27/19 24 07/27/2023 COMPR EHENS GUEVARA METAB OLIC PANEL alkaline phosphatase 82 U/L 38-126 Not Available [facility] (Lab) [address] [place], [address], 07/27/2023 19:00:08 07/27/19 24 07/27/2023 COMPR EHENS GUEVARA METAB OLIC PANEL alanine aminotransfe rase 21 U/L 0-50 Not Available [facility] (Lab) [address] [place], [address], 07/27/2023 19:00:08 07/27/19 24 07/27/2023 COMPR EHENS GUEVARA METAB OLIC PANEL aspartate aminotransfe rase 25 U/L 15-46 Not Available [facility] (Lab) [address] [place], [address], 07/27/2023 19:00:08 07/27/19 24 07/27/2023 COMPR EHENS GUEVARA METAB OLIC PANEL bilirubin, total 0.70 mg/dL 0.20-1 .30 Not Available [facility] (Lab) [address] [place], [address], 07/27/2023 19:00:08 07/27/19 24 07/27/2023 COMPR EHENS GUEVARA METAB OLIC PANEL calcium 9.2 mg/dL 8.4-10 .2 Not Available [facility] (Lab) [address] [place], [address], 07/27/2023 19:00:08 07/27/19 24 07/27/2023 COMPR EHENS GUEVARA METAB OLIC PANEL total protein 6.9 g/dL 6.3-8. 2 Not Available [facility] (Lab) [address] [place], [address], 07/27/2023 19:00:08 07/27/19 24 07/27/2023 COMPR EHENS GUEVARA METAB OLIC PANEL albumin 4.1 g/dL 3.0-4. 4 Not Available [facility] (Lab) [address] [place], [address], 07/27/2023 19:00:08 07/27/19 24 07/27/2023 COMPR EHENS GUEVARA METAB OLIC PANEL globulin 2.8 g/dL 2.6-4. 2 Not Available [facility] (Lab) [address] [place], [address], 07/27/2023 19:00:08 07/27/19 24 07/27/2023 COMPR EHENS GUEVARA METAB OLIC PANEL A/G ratio 1.5 ratio 1.0-2. 0 Not Available [facility] (Lab) [address] [place], [address], 07/27/2023 19:00:08 11/25/19 24 11/25/2023 CBC/C OMPLE TE BLD COUNT W/DIF F white blood cells 9.2 x10'3 /uL 4.2-10 .8 Not Available [facility] (Lab) [address] [place], [address], 11/25/2023 14:01:39 11/25/19 24 11/25/2023 CBC/C OMPLE TE BLD COUNT W/DIF F red blood cells 4.58 x10'6 /uL 4.10-5 .80 Not Available [facility] (Lab) [address] [place], [address], 11/25/2023 14:01:39 11/25/19 24 11/25/2023 CBC/C OMPLE TE BLD COUNT W/DIF F hemoglobin 15.5 g/dL 13.2-1 7.0 Not Available [facility] (Lab) [address] [place], [address], 11/25/2023 14:01:39 11/25/19 24 11/25/2023 CBC/C OMPLE TE BLD COUNT W/DIF F hematocrit 47.4 % 39.3-5 0.0 Not Available [facility] (Lab) [address] [place], [address], 11/25/2023 14:01:39 11/25/19 24 11/25/2023 CBC/C OMPLE TE BLD COUNT W/DIF F mean red cell volume 103.5 fL 80.0-9 7.0 high Not Available [facility] (Lab) [address] [place], [address], 11/25/2023 14:01:39 11/25/19 24 11/25/2023 CBC/C OMPLE TE BLD COUNT W/DIF F mean red cell hemoglobin 33.8 pg 27.0-3 3.0 high Not Available [facility] (Lab) [address] [place], [address], 11/25/2023 14:01:39 11/25/19 24 11/25/2023 CBC/C OMPLE TE BLD COUNT W/DIF F mean RBC HGB concentratio n 32.7 g/dL 31.0-3 6.0 Not Available [facility] (Lab) [address] [place], [address], 11/25/2023 14:01:39 11/25/19 24 11/25/2023 CBC/C OMPLE TE BLD COUNT W/DIF F red cell distribution width 13.9 % 11.8-1 5.5 Not Available [facility] (Lab) [address] [place], [address], 11/25/2023 14:01:39 11/25/19 24 11/25/2023 CBC/C OMPLE TE BLD COUNT W/DIF F platelets 275 x10'3 /uL 150-40 0 Not Available [facility] (Lab) [address] [place], [address], 11/25/2023 14:01:39 11/25/19 24 11/25/2023 CBC/C OMPLE TE BLD COUNT W/DIF F mean platelet volume 10.6 fL 9.0-12 .4 Not Available [facility] (Lab) [address] [place], [address], 11/25/2023 14:01:39 11/25/19 24 11/25/2023 CBC/C OMPLE TE BLD COUNT W/DIF F neutrophils 70.3 % 39.0-7 2.0 Not Available [facility] (Lab) [address] [place], [address], 11/25/2023 14:01:39 11/25/19 24 11/25/2023 CBC/C OMPLE TE BLD COUNT W/DIF F lymphocytes 16.6 % 16.0-4 7.0 Not Available [facility] (Lab) [address] [place], [address], 11/25/2023 14:01:39 11/25/19 24 11/25/2023 CBC/C OMPLE TE BLD COUNT W/DIF F monocytes 9.4 % 5.0-12 .0 Not Available [facility] (Lab) [address] [place], [address], 11/25/2023 14:01:39 11/25/19 24 11/25/2023 CBC/C OMPLE TE BLD COUNT W/DIF F eosinophils 2.9 % 1.0-7. 0 Not Available [facility] (Lab) [address] [place], [address], 11/25/2023 14:01:39 11/25/19 24 11/25/2023 CBC/C OMPLE TE BLD COUNT W/DIF F basophils 0.4 % 0.0-2. 0 Not Available [facility] (Lab) [address] [place], [address], 11/25/2023 14:01:39 11/25/19 24 11/25/2023 CBC/C OMPLE TE BLD COUNT W/DIF F immature granulocytes 0.4 % 0.00-0 .50 Not Available [facility] (Lab) [address] [place], [address], 11/25/2023 14:01:39 11/25/19 24 11/25/2023 CBC/C OMPLE TE BLD COUNT W/DIF F neutrophils, absolute count 6.49 x10'3 /uL 1.5-8. 0 Not Available [facility] (Lab) [address] [place], [address], 11/25/2023 14:01:39 11/25/19 24 11/25/2023 CBC/C OMPLE TE BLD COUNT W/DIF F lymphocytes, absolute count 1.53 x10'3 /uL 1.07-3 .43 Not Available [facility] (Lab) [address] [place], [address], 11/25/2023 14:01:39 11/25/19 24 11/25/2023 CBC/C OMPLE TE BLD COUNT W/DIF F monocytes, absolute count 0.87 x10'3 /uL 0.29-0 .99 Not Available [facility] (Lab) [address] [place], [address], 11/25/2023 14:01:39 11/25/19 24 11/25/2023 CBC/C OMPLE TE BLD COUNT W/DIF F eosinophils, absolute count 0.27 x10'3 /uL 0.02-0 .53 Not Available [facility] (Lab) [address] [place], [address], 11/25/2023 14:01:39 11/25/19 24 11/25/2023 CBC/C OMPLE TE BLD COUNT W/DIF F basophils, absolute count 0.04 x10'3 /uL 0.01-0 .08 Not Available [facility] (Lab) [address] [place], [address], 11/25/2023 14:01:39 11/25/19 24 11/25/2023 CBC/C OMPLE TE BLD COUNT W/DIF F immature granulocytes ,absolute 0.04 x10'3 /uL 0.00-0 .05 Not Available [facility] (Lab) [address] [place], [address], 11/25/2023 14:01:39 11/25/19 24 11/25/2023 CBC/C OMPLE TE BLD COUNT W/DIF F nucleated red blood cells 0.0 % -0 Not Available [facility] (Lab) [address] [place], [address], 11/25/2023 14:01:39 11/25/19 24 11/25/2023 CBC/C OMPLE TE BLD COUNT W/DIF F NRBC# 0.00 x10'3 /uL Not Available [facility] (Lab) [address] [place], [address], 11/25/2023 14:01:39 11/25/19 24 11/25/2023 COMPR EHENS GUEVARA METAB OLIC PANEL sodium 139 mmol/ L 137-14 5 Not Available [facility] (Lab) [address] [place], [address], 11/25/2023 17:02:48 11/25/19 24 11/25/2023 COMPR EHENS GUEVARA METAB OLIC PANEL potassium 4.9 mmol/ L 3.5-5. 1 Not Available [facility] (Lab) [address] [place], [address], 11/25/2023 17:02:48 11/25/19 24 11/25/2023 COMPR EHENS GUEVARA METAB OLIC PANEL chloride 105 mmol/ L 98-107 Not Available [facility] (Lab) [address] [place], [address], 11/25/2023 17:02:48 11/25/19 24 11/25/2023 COMPR EHENS GUEVARA METAB OLIC PANEL carbon dioxide 30 mmol/ L 22-30 Not Available [facility] (Lab) [address] [place], [address], 11/25/2023 17:02:48 11/25/19 24 11/25/2023 COMPR EHENS GUEVARA METAB OLIC PANEL anion gap 8.9 mmol/ L 14-22 low Not Available [facility] (Lab) [address] [place], [address], 11/25/2023 17:02:48 11/25/19 24 11/25/2023 COMPR EHENS GUEVARA METAB OLIC PANEL glucose 122 mg/dL 70-99 high Not Available [facility] (Lab) [address] [place], [address], 11/25/2023 17:02:48 11/25/19 24 11/25/2023 COMPR EHENS GUEVARA METAB OLIC PANEL BUN 22 mg/dL 8-19 high Not Available [facility] (Lab) [address] [place], [address], 11/25/2023 17:02:48 11/25/19 24 11/25/2023 COMPR EHENS GUEVARA METAB OLIC PANEL creatinine 1.25 mg/dL 0.66-1 .25 Not Available [facility] (Lab) [address] [place], [address], 11/25/2023 17:02:48 11/25/19 24 11/25/2023 COMPR EHENS GUEVARA METAB OLIC PANEL GFR 55 Refer ence Range : [place] ge GFR Healt hy Adult : >60 [...] or ethni c subgr oups, such as [facility] nics. Outsi de the valid ated [...] calcu lator is avail able on the [facility] websi te: https ://benson w.soco haas.o rg/pr ofess ional s/kdo qi/gf r_cal culat or Not Available [facility] (Lab) [address] [place], [address], 11/25/2023 17:02:48 11/25/19 24 11/25/2023 COMPR EHENS GUEVARA METAB OLIC PANEL alkaline phosphatase 98 U/L 38-126 Not Available [facility] (Lab) [address] [place], [address], 11/25/2023 17:02:48 11/25/19 24 11/25/2023 COMPR EHENS GUEVARA METAB OLIC PANEL alanine aminotransfe rase 18 U/L 0-50 Not Available [facility] (Lab) [address] [place], [address], 11/25/2023 17:02:48 11/25/19 24 11/25/2023 COMPR EHENS GUEVARA METAB OLIC PANEL aspartate aminotransfe rase 24 U/L 15-46 Not Available [facility] (Lab) [address] [place], [address], 11/25/2023 17:02:48 11/25/19 24 11/25/2023 COMPR EHENS GUEVARA METAB OLIC PANEL bilirubin, total 0.90 mg/dL 0.20-1 .30 Not Available [facility] (Lab) [address] [place], [address], 11/25/2023 17:02:48 11/25/19 24 11/25/2023 COMPR EHENS GUEVARA METAB OLIC PANEL calcium 9.3 mg/dL 8.4-10 .2 Not Available [facility] (Lab) [address] [place], [address], 11/25/2023 17:02:48 11/25/19 24 11/25/2023 COMPR EHENS GUEVARA METAB OLIC PANEL total protein 7.4 g/dL 6.3-8. 2 Not Available [facility] (Lab) [address] [place], [address], 11/25/2023 17:02:48 11/25/19 24 11/25/2023 COMPR EHENS GUEVARA METAB OLIC PANEL albumin 4.2 g/dL 3.0-4. 4 Not Available [facility] (Lab) [address] [place], [address], 11/25/2023 17:02:48 11/25/19 24 11/25/2023 COMPR EHENS GUEVARA METAB OLIC PANEL globulin 3.2 g/dL 2.6-4. 2 Not Available [facility] (Lab) [address] [place], [address], 11/25/2023 17:02:48 11/25/19 24 11/25/2023 COMPR EHENS GUEVARA METAB OLIC PANEL A/G ratio 1.3 ratio 1.0-2. 0 Not Available [facility] (Lab) [address] [place], [address], 11/25/2023 17:02:48 11/25/19 24 11/25/2023 LIPID PANEL cholesterol 134 mg/dL 140-19 9 low NIH MARLENI NSUS RECOM MENDA TION FOR CLARE STERO L: ADULT CHILD LOW RISK: <200 <170 BORDE RLINE : <200- 239 ----- HIGH RISK: >240 >200 Not Available [facility] (Lab) [address] [place], [address], 11/25/2023 17:02:49 11/25/19 24 11/25/2023 LIPID PANEL triglyceride s 211 mg/dL 0-150 high NIH MARLENI NSUS REPOR T RECOM MENDA TION FOR TRIGL YCERI MARIA C: ADULT CHILD LOW RISK: <150 ----- BODER LINE: 150-1 99 ----- HIGH RISK: >200 ----- Not Available [facility] (Lab) [address] [place], [address], 11/25/2023 17:02:49 11/25/19 24 11/25/2023 LIPID PANEL HDL cholesterol 33 mg/dL 40- low Not Available [facility] (Lab) [address] [place], [address], 11/25/2023 17:02:49 11/25/19 24 11/25/2023 LIPID PANEL [...] WILL NOT BE REPOR CHACHA. Not Available [facility] (Lab) [address] [place], [address], 11/25/2023 17:02:49 Result Notes None recorded. Problems Name Problem SNOMED Code Status Onset Date Resolution Date Notes Provider Name and Address Organization Details Recorded Time Pain in both feet 01061878986 586117 Active 2022 Not Available [facility] 3 18:20:36 Renewal of prescript ion Active 2021 Not Available [facility] 3 18:20:35 Pain of bilateral hands 21627135480 461137 Active 2021 Not Available [facility] 3 18:20:36 Ingrowing nail of toe of right foot 61827482040 438151 Active 2022 Not Available [facility] 3 18:20:36 Blood glucose outside reference range 754513507 Active 2021 Not Available [facility] 3 18:20:36 Gastroeso phageal reflux disease without esophagit is 777306958 Active 2020 Not Available [facility] 3 18:20:36 Benign prostatic hyperplas ia 344015476 Active 2021 Not Available [facility] 3 18:20:36 Intermitt ent confusion 622463603 Active [address] [facility] 3 18:20:36 Confusion al state 364380465 Active [address] [facility] 3 18:20:36 Numbness of hand 118931853 Active [address] Not [address] [facility] 3 18:20:36 Inguinal hernia 858889969 Completed Not Available [facility] 3 03:05:53 Chronic atrial fibrillat ion 688900613 Active 2020 Not Available [facility] 3 18:20:36 Acute upper respirato ry infection 11390456 Active 2021 Not Available [facility] 3 18:20:36 Hyperlipi demia 12393013 Active Not Available [facility] 3 18:20:36 Carpal tunnel syndrome 60050362 Active 2021 Not Available [facility] 3 18:20:36 COVID-19 806660671 Active 2021 Not Available [facility] 3 18:20:36 Dystrophi a unguium 74447704 Active 2020 Not Available [facility] 3 18:20:36 Sinusitis 25262027 Active 2022 Not Available [facility] 3 18:20:36 Insomnia 911791321 Active 2022 Not Available [facility] 3 18:20:36 Weakness present 516794012 Active 2023 HECTOR Mclaughlin null, [facility] [employer] 4 15:26:10 Pain of toe of right foot [id number] 9101 Active 2023 Josep Bey DPM [address], [facility] [address], [address] , [facility] [employer] [facility] 4 13:07:53 Unable to cut own toenails 184864760 Active 2023 Josep Bey DPM [address], [facility] [address], [place], [address] , [facility] [employer] 14:33:17 Problem Notes None recorded. Procedures Surgical History Date Name Laterality Status Provider Name and Address Organization Details Recorded Time 06/17/19 25 Nail Debridement completed Josep Bey DPM [address], [address], [place], [address], [employer] [facility] [employer] [employer] 06/16/2024 13:22:51 03/21/20 24 Nail Debridement completed Josep Bey DPM [address], [place], [address], [employer] [facility] [employer] 03/21/2024 11:56:09 11/12/19 24 Nail Debridement completed Josep Bey DPM [address], [place], [address], [employer] [facility] [employer] 11/12/2023 15:03:43 08/10/19 24 Nail Debridement completed Josep Bey DPM [address], [place], [address], [employer] [facility] [employer] 08/10/2023 14:33:49 05/11/19 24 Nail Debridement completed Josep Bey DPM [address], [place], [address], [employer] [facility] [employer] 05/11/2023 13:07:42 02/17/20 23 Nail Debridement completed SYLVIE Puentes, [address], [place], [address], [employer] [facility] [employer] 02/16/2023 11:25:21 11/18/19 23 Nail Debridement completed Josep Bey DPM [address], [place], [address], [employer] [facility] [employer] 11/17/2022 10:35:29 08/19/19 23 Nail Debridement completed SYLVIE Puentes, [address], [place], [address], [employer] [facility] [employer] 08/18/2022 11:16:17 01/02/20 22 Hand completed Not Available [facility] 03:02:46 06/24/19 18 Colonoscopy completed Not Available [facility] 06/05/19 03:02:46 03/28/20 13 Rerepair ing hernia reduce completed Not Available [facility] 06/04/2022 03:02:46 09/02/19 08 Colonoscopy completed Not Available [facility] 06/05/19 03:02:46 Hernia Repair completed Not Available [facility] 06/04/2022 03:02:46 Excisions - Specify completed Not Available [facility] 06/04/2022 03:02:46 Imaging Results None recorded. Procedure [...] Updated DateTime 4 187.96 cm 23.8 kg/m2 97789.5 9 g 74 /min 14 /min 97.4 [degF] 98 % 98 % 114 mm[Hg] 68 mm[Hg] Janine Dong ID [employer] 4 12:16:57 Date Recorded Body height Body mass index (BMI) Body weight Heart rate Respiratory rate Oxygen saturation Oxygen saturation in Arterial blood by Pulse oximetry Systolic blood pressure Diastolic blood pressure Provider Name and Address Organization Details Last Updated DateTime 4 187.96 cm 23.8 kg/m2 55327.5 9 g 78 /min 14 /min 97 % 97 % 121 mm[Hg] 67 mm[Hg] Asuncion Funk [employer] 4 12:13:04 Date Recorded Body height Body mass index (BMI) Body weight Heart rate Respiratory rate Body temperature Oxygen saturation Oxygen saturation in Arterial blood by Pulse oximetry Systolic blood pressure Diastolic blood pressure Provider Name and Address Organization Details Last Updated DateTime 4 187.96 cm 23.8 kg/m2 87232.5 9 g 76 /min 14 /min 98.6 [degF] 98 % 98 % 120 mm[Hg] 70 mm[Hg] Yudi Dsouza MA [facility] [employer] [facility] 4 12:40:15 Date Recorded Body height Body mass index (BMI) Body weight Heart rate Respiratory rate Oxygen saturation Oxygen saturation in Arterial blood by Pulse oximetry Systolic blood pressure Diastolic blood pressure Provider Name and Address Organization Details Last Updated DateTime 4 187.96 cm 23.8 kg/m2 14382.5 9 g 78 /min 14 /min 98 % 98 % 116 mm[Hg] 73 mm[Hg] Asuncion Funk [facility] [employer] [facility] 4 11:06:27 Date Recorded Body height Body mass index (BMI) Body weight Heart rate Respiratory rate Oxygen saturation Oxygen saturation in Arterial blood by Pulse oximetry Systolic blood pressure Diastolic blood pressure Provider Name and Address Organization Details Last Updated DateTime 5 187.96 cm 23.8 kg/m2 76039.5 9 g 71 /min 14 /min 97 % 97 % 136 mm[Hg] 87 mm[Hg] Asuncion Funk ID [employer] [facility] [employer] [facility] 5 12:12:18 Social History Question Answer Notes LastModified by [employer] ion Details LastModified Time Tobacco Smoking Status Never [facility]oker Not [facility] 06/04/2022 02:53:46 Do You Have An Advance Directive? Yes MIGRATION.61866 17277 Information not available 06/04/2022 Are You Blind Or Do You Have Difficulty Seeing? Yes MIGRATION. 91868 Information not available 06/04/2022 What Is Your Level Of Caffeine Consumption? Occasional MIGRATION. 69026 Information not available 06/04/2022 How Much Tobacco Do You Chew? None MIGRATION.52403 36237 Information not available 06/04/2022 In The 14 Days Before Symptom Onset, Have You Had Close Contact With A Laboratory-confi rmed COVID-19 While That Case Was Ill? No MIGRATION.98014 04356 Information not available 06/04/2022 In The 14 Days Before Symptom Onset, Have You Had Close Contact With A Person Who Is Under Investigation For COVID-19 While That Person Was Ill? No MIGRATION.70411 78134 Information not available 06/04/2022 Are You Deaf Or Do You Have Serious Difficulty Hearing? No MIGRATION.61314 50993 Information not available 06/04/2022 What Type Of Diet Are You Following? REGULAR MIGRATION.03893 74108 Information not available 06/04/2022 Which Illicit Or Recreational Drugs Have You Used? None MIGRATION.12414 90738 Information not available 06/04/2022 What Is The Highest Grade Or Level Of School You Have Completed Or The Highest Degree You Have Received? [id number] MIGRATION.29951 66932 Information not available 06/04/2022 Have There Been Any Changes To Your Family Or Social Situation? No MIGRATION.97937 58537 Information not available 06/04/2022 What Is The Fluoride Status Of Your Home? Unknown MIGRATION.42251 12096 Information not available 06/04/2022 Are There Any Guns Present In Your Home? Yes MIGRATION.00266 76591 Information not available 06/04/2022 Do You Use Insect Repellent Routinely? No MIGRATION.98942 33566 Information not available 06/04/2022 Where Do You Live? [facility] MIGRATION.58357 70977 Information not available 06/04/2022 Do You Have A Medical Power Of Pals Nurse? Yes MIGRATION.72462 06384 Information not available 06/04/2022 What Was The Date Of Your Most Recent Tobacco Screening? 04/28/2023 Information not available 04/28/2023 Do You Have Any Pets? No MIGRATION.05593 31427 Information not available 06/04/2022 What Is Your Relationship Status? MIGRATION.87631 65468 Information not available 06/04/2022 Do You Use Your Seat Belt Or Car Seat Routinely? Yes MIGRATION.05618 18287 Information not available 06/04/2022 Do You Have Smoke And Carbon Monoxide Detectors In Your Home? Yes MIGRATION.38064 90183 Information not available 06/04/2022 Are You Passively Exposed To Smoke? No MIGRATION.94713 33718 Information not available 06/04/2022 Are There Any Smokers In Your House? No MIGRATION.74379 02519 Information not available 06/04/2022 How Much Tobacco Do You Smoke? No MIGRATION.45718 92168 Information not available 06/04/2022 What Types Of Sporting Activities Do You Participate In? None MIGRATION.30429 16036 Information not available 06/04/2022 Do You Use Sunscreen Routinely? Yes MIGRATION.09222 56938 Information not available 06/04/2022 Has Tobacco Cessation Counseling Been Provided? No Not Needed-ne alejo Smoked MIGRATION.92748 83252 Information not available 06/04/2022 How Many Years Have You Smoked Tobacco? 0 MIGRATION.05623 41122 Information not available 06/04/2022 Have You Recently Traveled Abroad? No MIGRATION.53043 64348 Information not available 06/04/2022 Do You Have Difficulty Walking Or Climbing Stairs? Yes MIGRATION.58904 89948 Information not available 06/04/2022 Do You Have Any Dietary Restrictions? No MIGRATION.49514 03247 Information not available 06/04/2022 Sex: Male Functional Status Question Answer Note LastModified by [employer] Details LastModified Time Do you use any illicit or recreational drugs? No MIGRATION.386693 4558 Information not available 06/04/2022 Do you or have you ever used any other forms of tobacco or nicotine? No MIGRATION.004247 0653 Information not available 06/04/2022 What is your level of alcohol consumption? None MIGRATION.137495 0224 Information not available 06/04/2022 Do you or have you ever used smokeless tobacco? Never used smokeless tobacco MIGRATION.120197 2550 Information not available 06/04/2022 Do you have transportation difficulties? No MIGRATION.583182 3909 Information not available 06/04/2022 Are you able to walk? YESWOREST MIGRATION.485970 1565 Information not available 06/04/2022 Do you have difficulty doing errands alone? Yes MIGRATION.643241 4727 Information not available 06/04/2022 Are you able to care for yourself? No MIGRATION.169492 7746 Information not available 06/04/2022 What is your occupation? retired MIGRATION.981140 3051 Information not available 06/04/2022 Do you have difficulty dressing or bathing? Yes MIGRATION.469787 6106 Information not available 06/04/2022 Do you or have you ever used e-cigarettes or vape? Never used electronic cigarettes MIGRATION.129516 0819 Information not available 06/04/2022 What is your exercise level? None MIGRATION.871688 2074 Information not available 06/04/2022 Mental Status Question Answer Note LastModified by [employer] ion Details LastModified Time Do you feel stressed (tense, restless, nervous, or anxious, or unable to sleep at night)? [id number] MIGRATION.04456245 26 Information not available 06/04/2022 Do you have difficulty concentrating, remembering or making decisions? Yes MIGRATION.37082541 26 Information not available 06/04/2022 Family History Relationship Description Onset Age of this Age Resolved Age Notes LastModified by Organization Details LastModified Time Mother Pulmonary embolism MIGRATION.251 [id number] Not available 06/04/2022 03:02:47 Mother Malignant melanoma of skin MIGRATION.801 8415609 Not available 06/04/2022 03:02:47 Mother Carotid artery stenosis MIGRATION.973 5381441 Not available 06/04/2022 03:02:47 Father Benign essential hypertension MIGRATION.408 5075849 Not available 06/04/2022 03:02:47 Medical History Condition [...] HAVE YOU BEEN HOSPITALIZED OR SEEN IN [facility] IN THE PAST YEAR ? N [...] high-dose, quadrivalent, PF 01/06/2019 completed Not Available [facility] 18:20:36 Influenza, high-dose, trivalent, PF 01/06/2018 completed Not Available [facility] 2022 18:20:36 Influenza, high-dose, trivalent, PF 02/20/2017 completed Not Available [facility] 2022 18:20:36 Influenza, high-dose, trivalent, PF 01/20/2016 completed Not Available [facility] 2022 18:20:36 Influenza, split virus, trivalent, PF 02/15/2014 completed Not Available [facility] 2022 18:20:36 Influenza, high-dose, trivalent, PF 02/08/2013 completed Not Available [facility] 2022 18:20:36 Influenza, high-dose, quadrivalent, PF 02/06/2022 completed Not Available [facility] 18:20:36 Past Encounters Encounter ID Performer Location Encounter Start Date Encounter Closed Date Diagnosis/Indication Diagnosis SNOMED-CT Code Diagnosis ICD10 Code Diagnosis Note [id number] [facility] [place] [address] [place] [address] 07/12/2020 00:00:00 07/16/2020 08:55:00 [id number] [facility] [place] [address] [place] [address] 09/26/2020 00:00:00 09/28/2020 17:15:13 [id number] Evon Yoon MD [facility] Internal Med [place] [address] [facility] y , [facility] [place] [address] 10/18/2020 00:00:00 10/18/2020 22:40:38 [id number] Evon Yoon MD [facility] Internal [facility] [place] [address] [place] [address] 01/03/2021 00:00:00 01/25/2021 22:05:43 [id number] Evon oYon MD [facility] Internal Med [place] [address] , [place] [address] 01/24/2021 00:00:00 02/04/2021 21:49:02 [id number] [facility] General Surgery [address] [facility], [address] [address] 01/28/2021 00:00:00 01/29/2021 14:42:35 [id number] [facility] [place] [address] [place] [address] 02/18/2021 00:00:00 02/18/2021 15:45:28 [id number] Evon Yoon MD [facility] Internal Med [place] [address] [facility] [address] , [place] [address] 03/05/2021 00:00:00 03/06/2021 23:42:00 [id number] Evon Yoon MD [facility] Internal Med [place] [address] , [place] [address] 04/23/2021 00:00:00 04/27/2021 15:55:23 [id number] [facility] [place] [address] [place] [address] 05/02/2021 00:00:00 05/02/2021 13:28:30 [id number] Evon Yoon MD [facility] Internal [facility] [place] [address] [place] [address] 05/23/2021 00:00:00 06/01/2021 14:18:29 [id number] [facility] [place] [address] [place] [address] 07/08/2021 00:00:00 07/09/2021 11:37:15 [id number] Evon Yoon MD [facility] Internal Med [place] [address] [facility] [address] , [place] [address] 08/22/2021 00:00:00 09/14/2021 17:58:24 [id number] [facility] [place] [address] [place] [address] 09/23/2021 00:00:00 09/24/2021 10:14:51 [id number] Evon Yoon MD [facility] Internal Med [place] [address] [facility] [address] , [place] [address] 11/21/2021 00:00:00 12/15/2021 22:30:19 [id number] [facility] [place] [address] [place] [address] 12/02/2021 00:00:00 12/02/2021 21:12:55 [id number] Stewart Priest MD [facility] Ortho [place] [address] [place] [address] 12/10/2021 00:00:00 12/10/2021 12:06:03 [id number] Stewart Priest MD [facility] [place] [address] [place] [address] 01/14/2022 00:00:00 01/14/2022 10:07:56 [id number] Evon Yoon MD [facility] Internal Med [place] [address] [facility] [address] , [place] [address] 02/06/2022 00:00:00 02/08/2022 14:36:19 [id number] [facility] [place] [address] [place] [address] 02/17/2022 00:00:00 02/18/2022 10:45:17 [id number] Stewart Priest MD [facility] [place] [address] [place] [address] 02/25/2022 00:00:00 02/25/2022 17:04:37 [id number] Stewart Priest MD [facility] [place] [address] [place] [address] 04/29/2022 00:00:00 04/30/2022 06:38:56 [id number] Josep Bey DPM [facility] Podiat[facility] [place] [address] [place] [address] 05/19/2022 00:00:00 05/19/2022 10:48:36 [id number] Evon Yoon MD [facility] Internal Med [facility] [address] 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 Nails were debrided and greater than 50% length and thickness where needed. Unable to cut own toenails 016572468 Z74.1 Pain in both feet 018902 3395 1984403 M79.671 M79.672 Secondary to nailsRecom mend supportive shoe gear and continue custom orthotics secondary to toe deformityM onitor for wounds daily if present seek medical attention immediatel yFollow-up in 3 months [id number] Evon Yoon MD [facility] Internal Med [place] [address] [facility] [place] [address] 10/14/2022 15:09:49 10/14/2022 15:58:17 Benign prostatic hyperplasia 954017530 N40.0 Chronic at rial fibrillation 219479202 I48.20 Gastroesop hageal reflux disease without esophagitis 947452785 K21.9 Hyperlipidemia 79126898 E78.5 [id number] Josep Bey DPM [facility] Podiat[facility] [place] [address] [place] [address] 11/17/2022 10:10:51 11/17/2022 10:42:39 Dystrophia unguium 61409358 L60.3 Nails 1 through 10 were debrided with sharp mechanical debridemen t without incident. Nails were debrided and greater than 50% length and thickness where needed. Unable to cut own toenails 777007460 Z74.1 [id number] Josep Bey DPM [facility] Podiat[facility] [place] [address] [place] [address] 02/16/2023 11:18:59 02/16/2023 12:09:48 Dystrophia unguium 01878940 L60.3 Nails 1 through 10 were debrided with sharp mechanical debridemen t without incident. Nails were debrided and greater than 50% length and thickness where needed. Unable to cut own toenails 280731042 Z74.1 Pain in both feet 177550 6254 0704070 M79.671 M79.672 Secondary to nailsRecom mend supportive shoe gear and continue custom orthotics secondary to toe deformityM onitor for wounds daily if present seek medical attention immediatel yFollow-up in 3 months [id number] Evon Yoon MD [facility] Internal Med [place] [address] [facility] [address] 03/03/2023 15:08:10 03/03/2023 16:33:23 Hyperlipidemia 08966860 E78.5 Long-term drug therapy 402375628 Z79.899 Insomnia 567534005 G47.0 0 Benign pro static hyperplasia 103147884 N40.0 Chronic at rial fibrillation 183281419 I48.20 Gastroesop hageal reflux disease without esophagitis 879027698 K21.9 [id number] Evon Yoon MD [facility] Internal Med [facility] [address] [facility] [facility] [place] [address] 04/28/2023 09:42:36 04/28/2023 12:15:53 Benign prostatic hyperplasia 487834109 N40.0 Chronic at rial fibrillation 022425249 I48.20 Gastroesop hageal reflux disease without esophagitis 327881907 K21.9 [id number] Josep Bey DPM [facility] [place] [place] [address] [place] [address] 05/11/2023 12:03:36 05/19/2023 13:08:18 Ingrowing nail of toe of right foot 7529782976 2139720 L60.0 slant back procedureM onitor for new infection if present seek medical attention immediatel yIf continues to be problemati c may require partial matrix procedure Dystrophia unguium 16214 009 L60.3 Nails 1 through 10 were debrided with sharp mechanical debridemen t without incident. Nails were debrided and greater than 50% length and thickness where needed. Pain of to e of right foot 1237664687 22384 M79.568 [id number] Josep Bey DPM [facility] Podiatry [place] [address] [place] [address] 08/10/2023 11:57:44 08/10/2023 14:45:52 Pain in both feet 7331071462 6796067 M79.671 M79.672 Secondary to nailsRecom mend supportive shoe gear and continue custom orthotics secondary to toe deformityM onitor for wounds daily if present seek medical attention immediatel yFollow-up in 3 months Dystrophia unguium 61505 009 L60.3 Nails 1 through 10 were debrided with sharp mechanical debridemen t without incident. Nails were debrided and greater than 50% length and thickness where needed. Unable to cut own toenails 196880280 Z74.1 [id number] Josep Bey DPM [facility] Podiat[facility] [place] [address] [facility] [address] [place] [address] 11/12/2023 12:13:03 11/12/2023 16:28:20 Dystrophia unguium 22612066 L60.3 Nails 1 through 10 were debrided with sharp mechanical debridemen t without incident. Nails were debrided and greater than 50% length and thickness where needed. Unable to cut own toenails 322374707 Z74.1 [id number] Josep Bey DPM [facility] Podiat[facility] [place] [address] [facility] [address] [place] [address] 03/21/2024 10:54:25 04/01/2024 08:21:21 Dystrophia unguium 72521699 L60.3 Nails 1 through 10 were debrided with sharp mechanical debridemen t without incident. Nails were debrided and greater than 50% length and thickness where needed. Unable to cut own toenails 536860894 Z74.1 [id number] Josep Bey DPM [facility] Podiatry [place] [address] [facility] [address] [place] [address] 06/16/2024 11:52:44 06/21/2024 11:15:21 Dystrophia unguium 94607075 L60.3 Nails 1 through 10 were debrided with sharp mechanical debridemen t without incident. Nails were debrided and greater than 50% length and thickness where needed. Unable to cut own toenails 202197400 Z74.1 Health Concerns Section Related Observation LastModified by Organization Detai ls LastModified Time None Recorded Concern Status LastModified by Organization Details LastModified Time None Recorded Advance Directives Directive Y: Payers Encounter Date Sequence Insurance Name Policy Number Policy Simpson Covered Member ID Simpson Member ID Guarantor Name 05/11/2023 1 [employer] - [employer]IONS - [facility] MEDICARE ADVANTAGE (MEDICARE REPLACEMENT PPO) [id number] Petar Marquez [id number] Petar Marquez 08/10/2023 1 [employer] - MED[employer]ARE SOL[employer]IONS - GROUP MEDICARE ADVANTAGE (MEDICARE REPLACEMENT PPO) [id number] Aguila O Marquez [id number] Petar O Marquez 11/12/2023 1 [employer] - MED[employer]ARE SOL[employer]IONS - GROUP MEDICARE ADVANTAGE (MEDICARE REPLACEMENT PPO) [id number] Petar O Marquez [id number] Aguila O Marquez 03/21/2024 1 [employer] - [employer]ARE [employer]IONS - GROUP MEDICARE ADVANTAGE (MEDICARE REPLACEMENT PPO) [id number] Petar O Marquez [id number] Aguila O Marquez 06/16/2024 1 [employer] - MEDICARE SOL[employer]IONS - GROUP MEDICARE ADVANTAGE (MEDICARE REPLACEMENT PPO) [id number] Aguila O Marquez [id number] Petar O Marquez Notes Date Note Type [...] Bey DPM [address], [place], [address], [employer] 05/11/2023 13:08:46 08/10/2023 text/html . Patient is an 82-year-old male who returns to the office for painful toenails. Patient denies any other complaints. Josep Bey DPM [address], [place], [address], [employer] 08/10/2023 14:34:05 11/12/2023 text/html Patient is an [...] Bey DPM [address], [place], [address], [employer] 11/12/2023 15:04:00 03/21/2024 text/html . Patient is an 83-year-old male he presents the office with his for routine foot care. Patient has dementia is unable to care for his feet. Patient has elongated toenails which need to be cut to prevent open wounds infection. Patient and denies any other complaints from the patient. Josep Bey DPM [address], [place], [address], [employer] [facility] [employer] 03/21/2024 11:57:51 06/16/2024 text/html Patient is an 83-year-old male he presents for routine foot care. Patient is unable to care for his feet in presents with his for nail care. Patient has no specific complaints. History is mainly from his . Who states he needs his nails cut. Josep Bey DPM [address], [place], [address], [employer] [facility] [employer] 06/16/2024 13:43:31
--- OUTSIDE RECORDS SUMMARY | 2024-08-23 15:44 | XMS_ITS | CONTINUITY OF CARE DOCUMENT ---
Author Name abby mora Address Unknown Organization [facility] Address [address] [place] [address] Phone [phone] Care Team Providers Care Second Class Welder Name Role Phone Jacky HOLLAND, Daina Unavailable [phone] KAMILLE HOLLAND, GURMEET Hannah Unavailable INSURANCE PROVIDERS Payer name Policy type / Coverage type [place] red alliance party ID [employer] MEDICARE COMPLETE HMO Other [id number]
--- OUTSIDE RECORDS SUMMARY | 2024-08-23 15:45 | XMS_ITS | Encounter Summary ---
Author Organization [facility] Address [address] [place] [address] Phone Care Team Providers Care Zipper Trimmer Hand Name Role Phone Nick Yoon MD Primary Care Provider Mark Montiel MD Unavailable [phone] Reason for Visit * Reason Comments Medication Refill Encounter Details Date Type Department Care Team (Late st Contact Info) Description 12/07/2022 Refill [facility] - [facility] [address] [place] [address] Mark Montiel MD [address] [place] [phone] Medication Refill Social History Tobacco Use Types Packs/Day Years Used Date Smoking Tobacco: Never Smokeless Tobacco: Never Alcohol Use Standard Drinks/Week Comments Not Currently 0 (1 standard drink = 0.6 oz pur e alcohol) Sex and Gender Information Value Date Recorded Sex Assigned at Not on file 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 06/30/22 Office Visit Mark Montiel MD [facility] Showing recent visits within past 182 days and meeting all other requirements Future Appointments Date Type Provider Dept 01/22/23 Appointment Mark Montiel MD [facility] Showing future appointments within next 90 days and meeting all other requirements Passed - Has an encounter in the past 6 months with a depression or anxiety visit diagnosis documented in this encounter Plan of Treatment Not on file documented as of this encounter Visit Diagnoses Not on filedocumented in this encounter Care Teams Zipper Trimmer Hand Relationship Specialty Start Date End Date Nick Yoon MD PCP - General Internal Medicine 03/26/22 Mark Montiel MD [address] [place] [address] Consulting Physician Neurology 01/15/23 documented as of this encounter
--- OUTSIDE RECORDS SUMMARY | 2024-08-23 15:45 | XMS_ITS | Clinical Summary ---
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
--- OUTSIDE RECORDS SUMMARY | 2024-08-23 15:45 | XMS_ITS | Encounter Summary ---
Author Organization [facility] Address [address] [place] [address] Phone Care Team Providers Care Financial Dealers Name Role Phone Nick Yoon MD Primary Care Provider [phone] Mark Montiel MD Unavailable [phone] Reason for Visit * Reason Comments Medication Refill Encounter Details Date Type Department Care Team (Late st Contact Info) Description 03/10/2023 Refill [facility] [address] [place] [phone] Mark Montiel MD [address] [place] [phone] Medication Refill Social History Tobacco Use Types Packs/Day Years Used Date Smoking Tobacco: Never Smokeless Tobacco: Never Alcohol Use Standard Drinks/Week Comments Not Currently 0 (1 standard drink = 0.6 oz pur e alcohol) Sex and Gender Information Value Date Recorded Sex Assigned at Not on file 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 Showing future appointments within next 90 days and meeting all other requirements PING CAR CONDUCTOR documented in this encounter Plan of Treatment Not on file documented as of this encounter Visit Diagnoses Not on filedocumented in this encounter Care Teams Financial Dealers Relationship Specialty Start Date End Date Nick Yoon MD PCP - General Internal Medicine 03/26/22 Mark Montiel MD [address] [place] [address] Consulting Physician Neurology 01/15/23 documented as of this encounter
--- NOTE | 2024-08-23 17:10 | ED_ITS ---
HPI - General Adult General Chief complaint: Back Pain/Injury Stated complaint: fall-lower back pain Time Seen by Provider: 08/23/24 15:21 History of Present Illness HPI narrative: 83-year-old male presenting to the emergency department for evaluation after having a ground level fall last night. Patient missed a bottom step and ended up striking his head and injuring his back. Patient does have history of dementia at baseline. Patient did not sleep well last night due to the back pain. states that she does care for her at home and they do have additional services that help them. Related Data Home Medications ?Medication ?Instructions ?Recorded ?Confirmed ?Last Taken ?Type omeprazole 20 mg capsule,delayed 20 mg PO HS 11/26/20 07/26/24 Unknown History release rosuvastatin 20 mg tablet 20 mg PO HS 11/26/20 07/26/24 Unknown History tamsulosin 0.4 mg capsule 0.4 mg PO HS 09/09/22 07/26/24 Unknown History multivitamin (Daily Multi-Vitamin 1 tablet PO DAILY 07/26/24 07/26/24 Unknown History tablet) Allergies Allergy/AdvReac Type Severity Reaction Status Date / Time adhesive tape Allergy Itching Verified 08/23/24 12:21 Review of Systems Review of Systems: All systems reviewed & are unremarkable except as noted in HPI and below PMFSH Past Medical History Medical History Atrial fibrillation Impacted cerumen of both ears Dementia Family History Family History Father Hypertension Sibling COPD (chronic obstructive pulmonary disease) Cancer Cerebrovascular accident Heart attack COVID Social History Social History Social History: Caffeine-coffee/soda Smoking status: Former smoker Tobacco type: cigarettes Alcohol intake: never Substance use: never Lack of Transportation: No Lack of Food: Never True Current Housing: I Have Housing Concerned About Future Housing: No Difficulty Paying Gas/Electric Bills: No Difficulty Paying for Meds: No Currently Unemployed: No Education: Trade/Vocational Certificate Difficulty w/ Childcare or Family Care: No Living arrangements: with family Occupation/Education: retired Gender identity (if verbalized by the patient): Male Spiritual care concerns: No Exam Narrative: APPEARANCE: Well appearing, no pain, no distress, well-nourished. HEAD: normocephalic, atraumatic. EYES: PERRLA/EOMI, conjunctivae clear. NOSE: Normal no drainage EARS: Bilateral ear infections with no mastoid tenderness THROAT: Pharynx clear, no exudate. NECK: Supple. No adenopathy, no masses. RESPIRATORY: Airway patent, respirations nonlabored. Clear to auscultation bilaterally, no rales, rhonchi, wheezing. CARDIOVASCULAR: Regular rate and rhythm without murmurs rubs or gallops. ABDOMINAL: Soft, nontender, nondistended, normal bowel sounds MUSCULOSKELETAL: Moves all extremities. Strength/ROM intact, No edema, No calf tenderness. Midline thoracic tenderness to palpation NEURO: Alert. Cranial nerves II through XII intact. Good gait. Good coordination SKIN: Warm, dry. Normal Color Course Vital Signs Vital signs: Vital Signs Temperature 97.2 F L 08/23/24 12:31 Pulse Rate 60 08/23/24 12:31 Respiratory Rate 16 08/23/24 12:31 Blood Pressure 180/80 H 08/23/24 12:31 Pulse Oximetry 99 08/23/24 12:31 Oxygen Delivery Room Air 08/23/24 12:31 Temperature 97.2 F L 08/23/24 12:31 Pulse Rate 82 08/23/24 18:32 Respiratory Rate 15 08/23/24 18:32 Blood Pressure 161/79 H 08/23/24 18:32 Pulse Oximetry 96 08/23/24 18:32 Oxygen Delivery Room Air 08/23/24 12:31 Medical Decision Making [facility] Narrative Medical decision making narrative: 83-year-old female presents emergency department for evaluation for lower back pain. CT scan was concerning for otomastoiditis. Patient has no tenderness over the mastoid bones. Patient's vital signs are within normal limit. Patient states he does have some your pain but this has been going on for a long time. Patient and family are updated the results of the workup and does feel comfortable with him being discharged to home. Patient will be started on Augmentin the emergency department. Patient was encouraged to have follow-up with ENT. Differential Diagnosis Differential Diagnosis: Cervical spine fracture, thoracic fracture, otitis media, mastoiditis Vital Signs Vital Signs: Vital Signs Temperature 97.2 F L 08/23/24 12:31 Pulse Rate 60 08/23/24 12:31 Respiratory Rate 16 08/23/24 12:31 Blood Pressure 180/80 H 08/23/24 12:31 Pulse Oximetry 99 08/23/24 12:31 Oxygen Delivery Room Air 08/23/24 12:31 Temperature 97.2 F L 08/23/24 12:31 Pulse Rate 82 08/23/24 18:32 Respiratory Rate 15 08/23/24 18:32 Blood Pressure 161/79 H 08/23/24 18:32 Pulse Oximetry 96 08/23/24 18:32 Oxygen Delivery Room Air 08/23/24 12:31 Imaging Data Radiologist's impression: Impressions Head CT 08/23/24 17:37 IMPRESSION: No acute intracranial process. Bilateral mastoid effusions. Right middle ear fluid. Correlate for clinical findings of right otomastoiditis. Cervical Spine CT 08/23/24 18:26 IMPRESSION: No acute fracture or traumatic malalignment in the cervical spine. Bilateral mastoid effusions. Right middle ear fluid. Correlate for clinical findings of right otomastoiditis. Ectatic thoracic aortic arch. Thoracic/Lumbar Spine CT 08/23/24 18:35 IMPRESSION: No acute osseous fracture or traumatic malalignment detected in the thoracic or lumbar spine Discharge Plan Discharge Clinical Impression: Acute infection of both ears, Low back pain Patient Disposition: Home Condition: Stable Instructions: Antibiotic Form, Ear Infection (AC), Back Pain (ED) Additional Instructions: Antibiotic as directed until completed for the ear infections. Have close follow-up with ENT. If you have any worsening symptoms then please call or return to the emergency department. Patient Language: Serbian Prescriptions: New amoxicillin-pot clavulanate 875-125 mg tablet 1 tablet PO Q12H 7 Days Qty: 14 0RF No Action tamsulosin 0.4 mg capsule 0.4 mg PO HS omeprazole 20 mg capsule,delayed release(DR/EC) 20 mg PO HS rosuvastatin 20 mg tablet 20 mg PO HS Eliquis 5 mg Tablet 5 mg PO Q12HR 30 Days Qty: 60 0RF multivitamin [Daily Multi-Vitamin] Tablet 1 tablet PO DAILY midodrine 2.5 mg tablet 3 mg PO TID Qty: 120 0RF Rx Instructions: do not give last dose of day after 6PM or within 4 hrs of bedtime pyridostigmine bromide 30 mg tablet 30 mg PO TID Qty: 90 0RF Follow-up/Referrals: Car,MD Nick [Primary Care Provider] - Drake Cordova MD [Physician] -
--- NOTE | 2024-08-23 18:24 | PC.NURSE ---
pt reports that when patient receives IV bp medication their bp drops very quick. declines medication and provider notified.
[2024-08-23] MEDS: AMOXICILLIN/CLAVULANATE K 875-125 MG TAB 1 TABLET PO (19:39)
== END 2024-08-23 19:50 | disposition home or self-care (01) ==
PROVIDERS: Emergency Provider Emergency Medicine; PCP Internal Medicine
DX: S39.92XA Unspecified injury of lower back, initial encounter (principal); H66.93 Otitis media, unspecified, bilateral; F03.90 Unspecified dementia, unspecified severity, without behavioral disturbance, psychotic disturbance, mood disturbance, and anxiety; I48.91 Unspecified atrial fibrillation; Z87.891 Personal history of nicotine dependence; Z79.01 Long term (current) use of anticoagulants; Z79.899 Other long term (current) drug therapy; W10.9XXA Fall (on) (from) unspecified stairs and steps, initial encounter
CPT/HCPCS: 70450; 72125; 72128; 72131; 99284; A9270

== ENCOUNTER 2024-10-15 10:43 | Inpatient (IN) | payer MEDICARE, SELFPAY ==
[2024-10-15] VITALS (11 sets, daily range): BP systolic 114–152; BP diastolic 50–81; PULSE 63–110; RESP 15–22; TEMP 36.1–36.5; O2SAT 94–100; BMI 20.5
--- NOTE | ~2024-10-15 | CT_ITS ---
EXAMINATION: CT brain wo con DATE: 10/15/2024 12:15 INDICATION: Syncope with fall TECHNIQUE: Computed tomography (CT) of the head was performed without intravenous contrast. Sagittal and coronal reconstructions were performed. The mA was adjusted according to patient size. Iterative reconstruction technique was employed. The dose-length product was 681.00 mGy-cm. COMPARISON: head CT dated 08/23/2024 FINDINGS: No fracture. No acute intracranial hemorrhage, acute infarction or abnormal extra axial fluid collect ion. There is moderate scattered white matter hypoattenuation consistent with chronic small vessel is chemic disease. Symmetric prominence of the sulci and ventricles consistent with moderateage-appropri ate diffuse cerebral volume loss. No mass/mass effect. Changes of bilateral intraocular lens replacem ent. Paranasal sinuses are normal. Chronic bilateral otomastoiditis effusions. Intracranial calcified cerebral atherosclerosis is noted. IMPRESSION: 1. No fracture or acute intracranial process. 2. Age-related changes including moderate diffuse volume loss and moderate scattered white matter hyp oattenuation consistent with chronic small vessel ischemic disease. 3. Chronic bilateral otomastoiditis effusions. Reviewed, dictated and finalized at location A. IMPRESSION: 1. No fracture or acute intracranial process. 2. Age-related changes including moderate diffuse volume loss and moderate scat tered white matter hypoattenuation consistent with chronic small vessel ischemi c disease. 3. Chronic bilateral otomastoiditis effusions.
--- NOTE | ~2024-10-15 | CT_ITS ---
EXAMINATION: CT chest abdomen pelvis w con DATE: 10/15/2024 12:22 INDICATION: Syncope, severe dementia and diarrhea. TECHNIQUE: Computed tomography (CT) of the chest, abdomen, and pelvis was performed with 100 mL Omnip aque-350 intravenous contrast. Automated exposure control and iterative reconstruction technique were employed. The dose-length product was 638.12 mGy-cm. COMPARISON: 04/19/2024 FINDINGS: CHEST CT: Again seen are chronic bilateral calcified pleural plaques consistent with prior asbestos exposure. T here is mild biapical pleural-parenchymal scarring and mild scattered linear discoid atelectasis in b oth lungs. No pneumonia, pulmonary edema or pleural effusion. Mild cardiomegaly. Atherosclerotic layla nary artery calcification. No pericardial effusion. Thoracic aorta is normal in caliber with some non hemodynamically significant atherosclerotic plaque and no dissection0. No pathologically enlarged abd ominal or pelvic lymphadenopathy. There is extrinsic compression of the left brachiocephalic vein bet ween the aorta and the left sternoclavicular joint with numerous left chest wall and paraspinal colla terals. Chronic mild vertebral body height loss at T2 and T12. Thoracic dextroscoliosis with moderate spondylosis. ABDOMEN/PELVIS CT: Liver, gallbladder, spleen, pancreas, bilateral adrenal glands and left kidney are normal. 1 cm inter mediate attenuation exophytic lesion at the right kidney which could represent a proteinaceous/hemorr hagic cyst or solid neoplasm. 1.3 cm low-attenuation left renal cyst. Liquid stool in the distal colo n consistent with given history of diarrhea. No bowel obstruction. The appendix is again not visualiz ed. Bladder is normal. No free intraperitoneal gas or fluid. No pathologically enlarged abdominal or pelvic lymphadenopathy. There is calcified atherosclerosis of the normal caliber aorta and many of th e other arteries. Likely subacute L1 burst fracture with 20% anterior vertebral body height loss and 4 mm retropulsion resulting in mild central canal stenosis at this level. 4 lumbar levocurvature with moderate spondylosis. IMPRESSION: 1. Chronic bilateral pleural plaques consistent with prior asbestos exposure. No acute cardiopulmonar y disease. 2. Fluid in the colon consistent with given history of diarrhea. No other acute intra-abdominal/pelvi c process. 3. Likely subacute L1 burst fracture with 20% anterior vertebral body height loss and 4 mm retropulsi on resulting in mild central canal stenosis. 4. Indeterminate 1 cm high attenuation right renal lesion statistically most likely to represent a pr oteinaceous/hemorrhagic cyst although renal cell carcinoma could not be excluded and would recommend follow-up pre and postcontrast MRI or CT. Reviewed, dictated and finalized at location A. IMPRESSION: 1. Chronic bilateral pleural plaques consistent with prior asbestos exposure. N o acute cardiopulmonary disease. 2. Fluid in the colon consistent with given history of diarrhea. No other acute intra-abdominal/pelvic process. 3. Likely subacute L1 burst fracture with 20% anterior vertebral body height lo ss and 4 mm retropulsion resulting in mild central canal stenosis. 4. Indeterminate 1 cm high attenuation right renal lesion statistically most li antonio to represent a proteinaceous/hemorrhagic cyst although renal cell carcinom a could not be excluded and would recommend follow-up pre and postcontrast MRI or CT.
--- NOTE | ~2024-10-15 | XR_ITS ---
EXAMINATION: XR chest 2V DATE: 10/15/2024 11:09 INDICATION: Syncope TECHNIQUE: frontal and lateral views of the chest were obtained. COMPARISON: Chest radiograph dated 08/05/2024 FINDINGS: Unchanged calcified pleural plaques project over the bilateral mid to lower lung zones suggestive of prior asbestos exposure. No new airspace opacities, pulmonary edema, pleural effusion or pneumothorax . Cardiomediastinal silhouette is normal. IMPRESSION: 1. Bilateral calcified pleural plaques consistent with prior asbestos exposure. No acute cardiopulmon migel disease. Reviewed, dictated and finalized at location A. IMPRESSION: 1. Bilateral calcified pleural plaques consistent with prior asbestos exposure. No acute cardiopulmonary disease.
--- NOTE | ~2024-10-15 | CT_ITS ---
EXAMINATION: CT cervical spine wo con DATE: 10/15/2024 12:15 INDICATION: Syncope. Fall. TECHNIQUE: Computed tomography (CT) of the cervical spine was performed without intravenous contrast. Automated exposure control and iterative reconstruction technique were employed. The dose-length pro duct was 197.83 mGy-cm. COMPARISON: None FINDINGS: Alignment is normal. Chronic mild superior endplate compression fracture at T2. Remainder vertebral b charlie heights are normal. No acute fracture. Severe osteoarthritis at the atlantoaxial articulation. Th ere are bridging or nearly bridging osteophytes at multiple levels extending from C4 through T3 at le ast consistent with diffuse idiopathic skeletal hyperostosis (DISH). There are disc bulges and chain saw operator ior disc osteophyte complexes resulting in multilevel central canal stenosis, mild to moderate severi ty at C5-C6 and C6-C7 and mild at C3-C4 through C5-C6. There is multilevel moderate and severe cervic al facet and uncovertebral osteoarthritis. There is solid fusion across the right C7-T1 facet joint. There is moderate neural foraminal stenosis on the left at C3-C4, C4-C5, on the right at C4-C5 and bi laterally at C7-T1. Mild neural from stenosis at many of the remaining cervical levels. Atherosclerot ic calcifications at bilateral carotid bulbs. Cervical soft tissues are otherwise unremarkable. The f oci of gas within the left subclavian vein likely related to left upper extremity peripheral IV place ment. Moderate biapical pleural-parenchymal scarring. IMPRESSION: 1. Severe cervical spondylosis. No acute osseous abnormality. Reviewed, dictated and finalized at location A.
--- OUTSIDE RECORDS SUMMARY | 2024-10-15 10:55 | XMS_ITS | Clinical Summary ---
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 Gender Identity Not on file Sexual Orientation [...] 10:52 AM CDT Height 185.4 cm (6' 1) 07/27/2023 10:52 AM CDT Body Mass Index [...] Immunization ( - season) 2023 Influenza Immunization (#1) 2024 11/0 06/2021, 01/06/2019, 01/06/2018, Additional history exists Hepatitis B Immunization Aged Out No longer eligible based on patient's age to complete this topic Human Papillomavirus (HPV) Immunization Aged Out No longer eligible based on patient's age to complete this topic Meningococcal Immunization (ACWY) Aged Out No longer eligible based on patient's age to complete this topic Rotavirus Immunization Aged Out No lo nger eligible based on patient's age to complete this topic Insurance MEDICARE C [employer] Care Teams Rental Clerk Relationship Specialty Start Date End Date Nick Yoon MD PCP - General Internal Medicine 03/26/22 Mark Montiel MD [address] [place] [address] Consulting Physician Neurology 01/15/23
--- OUTSIDE RECORDS SUMMARY | 2024-10-15 10:55 | XMS_ITS | Data Portability ---
Author Organization [place] - [facility] [facility], Main Office Address [address] [place] [address] Care Team Providers Care Team Physician Name Role Phone EVON YOON Primary Care Provider EVON YOON Referring Provider Assessment Encounter Date Assessment Date Assessment LastModified by Organization Details LastModified Time 08/10/2023 08/10/2023 This note is dictated and transcribed by [employer]. Game Producer variances may occur. Despite proofreading, typographical errors may occur. Occasional wrong-word or 'qoevc-[id number]' substitutions may have occurred due to the inherent limitations of voice recording. Read the chart carefully and recognize, using context, where substitutions have occurred. Not available 08/10/2023 14:33:02 11/12/2023 11/12/2023 This note is dictated and transcribed by [employer]. Game Producer variances may occur. Despite proofreading, typographical errors may occur. Occasional wrong-word or 'hafpb-v-wfep' substitutions may have occurred due to the inherent limitations of voice recording. Read the chart carefully and recognize, using context, where substitutions have occurred. Not available 11/12/2023 15:03:48 03/21/2024 03/21/2024 This note is dictated and transcribed by [employer]. Game Producer variances may occur. Despite proofreading, typographical errors may occur. Occasional wrong-word or 'pmzrw-o-reqv' substitutions may have occurred due to the inherent limitations of voice recording. Read the chart carefully and recognize, using context, where substitutions have occurred. Not available 03/21/2024 11:55:22 06/16/2024 06/16/2024 This note is dictated and transcribed by [employer]. Game Producer variances may occur. Despite proofreading, typographical errors may occur. Occasional wrong-word or 'rpjcc-h-ncst' substitutions may have occurred due to the inherent limitations of voice recording. Read the chart carefully and recognize, using context, where substitutions have occurred. Not available 06/16/2024 13:22:59 09/12/2024 09/12/2024 This note is dictated and transcribed by [employer]. Game Producer variances may occur. Despite proofreading, typographical errors may occur. Occasional wrong-word or 'tlbfk-j-vxch' substitutions may have occurred due to the inherent limitations of voice recording. Read the chart carefully and recognize, using context, where substitutions have occurred. Not available 09/12/2024 13:41:44 Plan of Treatment Reminders Order Date Submit Date Provider Last Modified By Organization Details Last Modified Time Details Appointments Establish ed Patient 15 2024 11:00A Camden Bey DPM Not available Not available Not available Lab None recorded. Referral None recorded. Procedures None recorded. Surgeries None recorded. Imaging None recorded. Medication Orders None recorded. Patient TargetsNo targets recorded. Patient InstructionsNo instructions recorded. Reason for Referral None Reported. Results Created Date Observation Date Name Description Value Unit Range Abnormal Flag Note LastModifiedBy Organization Detail LastModifiedTime 07/27/19 24 07/27/2023 CBC/C OMPLE TE BLD COUNT W/DIF F white blood cells 10.3 x10'3 /uL 4.2-10 .8 Not Available [facility] (Lab) [address] [place], [address], 07/27/2023 13:42:11 07/27/19 24 07/27/2023 CBC/C OMPLE TE BLD COUNT W/DIF F red blood cells 4.40 x10'6 /uL 4.10-5 .80 Not Available [facility] (Lab) [address] [place], [address], 07/27/2023 13:42:11 07/27/19 24 07/27/2023 CBC/C OMPLE TE BLD COUNT W/DIF F hemoglobin 14.8 g/dL 13.2-1 7.0 Not Available [facility] (Lab) [address] [place], [address], 07/27/2023 13:42:11 07/27/19 24 07/27/2023 CBC/C OMPLE TE BLD COUNT W/DIF F hematocrit 44.8 % 39.3-5 0.0 Not Available [facility] (Lab) [address] [place], [address], 07/27/2023 13:42:11 07/27/19 24 07/27/2023 CBC/C OMPLE TE BLD COUNT W/DIF F mean red cell volume 101.8 fL 80.0-9 7.0 high Not Available [facility] (Lab) [address] [place], [address], 07/27/2023 13:42:11 07/27/19 24 07/27/2023 CBC/C OMPLE TE BLD COUNT W/DIF F mean red cell hemoglobin 33.6 pg 27.0-3 3.0 high Not Available [facility] (Lab) [address] [place], [address], 07/27/2023 13:42:11 07/27/19 24 07/27/2023 CBC/C OMPLE TE BLD COUNT W/DIF F mean RBC HGB concentratio n 33.0 g/dL 31.0-3 6.0 Not Available [facility] (Lab) [address] [place], [address], 07/27/2023 13:42:11 07/27/19 24 07/27/2023 CBC/C OMPLE TE BLD COUNT W/DIF F red cell distribution width 13.7 % 11.8-1 5.5 Not Available [facility] (Lab) [address] [place], [address], 07/27/2023 13:42:11 07/27/19 24 07/27/2023 CBC/C OMPLE TE BLD COUNT W/DIF F platelets 276 x10'3 /uL 150-40 0 Not Available [facility] (Lab) [address] [place], [address], 07/27/2023 13:42:11 07/27/19 24 07/27/2023 CBC/C OMPLE TE BLD COUNT W/DIF F mean platelet volume 10.5 fL 9.0-12 .4 Not Available [facility] (Lab) [address] [place], [address], 07/27/2023 13:42:11 07/27/19 24 07/27/2023 CBC/C OMPLE TE BLD COUNT W/DIF F neutrophils 73.8 % 39.0-7 2.0 high Not Available [facility] (Lab) [address] [place], [address], 07/27/2023 13:42:11 07/27/19 24 07/27/2023 CBC/C OMPLE TE BLD COUNT W/DIF F lymphocytes 12.9 % 16.0-4 7.0 low Not Available [facility] (Lab) [address] [place], [address], 07/27/2023 13:42:11 07/27/19 24 07/27/2023 CBC/C OMPLE TE BLD COUNT W/DIF F monocytes 10.1 % 5.0-12 .0 Not Available [facility] (Lab) [address] [place], [address], 07/27/2023 13:42:11 07/27/19 24 07/27/2023 CBC/C OMPLE TE BLD COUNT W/DIF F eosinophils 2.1 % 1.0-7. 0 Not Available [facility] (Lab) [address] [place], [address], 07/27/2023 13:42:11 07/27/19 24 07/27/2023 CBC/C OMPLE TE BLD COUNT W/DIF F basophils 0.6 % 0.0-2. 0 Not Available [facility] (Lab) [address] [place], [address], 07/27/2023 13:42:11 07/27/19 24 07/27/2023 CBC/C OMPLE TE BLD COUNT W/DIF F immature granulocytes 0.5 % 0.00-0 .50 Not Available [facility] (Lab) [address] [place], [address], 07/27/2023 13:42:11 07/27/19 24 07/27/2023 CBC/C OMPLE TE BLD COUNT W/DIF F neutrophils, absolute count 7.63 x10'3 /uL 1.5-8. 0 Not Available [facility] (Lab) [address] [place], [address], 07/27/2023 13:42:11 07/27/19 24 07/27/2023 CBC/C OMPLE TE BLD COUNT W/DIF F lymphocytes, absolute count 1.33 x10'3 /uL 1.07-3 .43 Not Available [facility] (Lab) [address] [place], [address], 07/27/2023 13:42:11 07/27/19 24 07/27/2023 CBC/C OMPLE TE BLD COUNT W/DIF F monocytes, absolute count 1.04 x10'3 /uL 0.29-0 .99 high Not Available [facility] (Lab) [address] [place], [address], 07/27/2023 13:42:11 07/27/19 24 07/27/2023 CBC/C OMPLE TE BLD COUNT W/DIF F eosinophils, absolute count 0.22 x10'3 /uL 0.02-0 .53 Not Available [facility] (Lab) [address] [place], [address], 07/27/2023 13:42:11 07/27/19 24 07/27/2023 CBC/C OMPLE TE BLD COUNT W/DIF F basophils, absolute count 0.06 x10'3 /uL 0.01-0 .08 Not Available [facility] (Lab) [address] [place], [address], 07/27/2023 13:42:11 07/27/19 24 07/27/2023 CBC/C OMPLE TE BLD COUNT W/DIF F immature granulocytes ,absolute 0.05 x10'3 /uL 0.00-0 .05 Not Available [facility] (Lab) [address] [place], [address], 07/27/2023 13:42:11 07/27/19 24 07/27/2023 CBC/C OMPLE TE BLD COUNT W/DIF F nucleated red blood cells 0.0 % -0 Not Available [facility] (Lab) [address] [place], [address], 07/27/2023 13:42:11 07/27/19 24 07/27/2023 CBC/C OMPLE TE BLD COUNT W/DIF F NRBC# 0.00 x10'3 /uL Not Available [facility] (Lab) [address] [place], [address], 07/27/2023 13:42:11 07/27/19 24 07/27/2023 LIPID PANEL cholesterol 144 mg/dL 140-19 9 NIH MARLENI NSUS RECOM MENDA TION FOR CLARE STERO L: ADULT CHILD LOW RISK: <200 <170 BORDE RLINE : <200- 239 ----- HIGH RISK: >240 >200 Not Available [facility] (Lab) [address] [place], [address], 07/27/2023 19:00:03 07/27/19 24 07/27/2023 LIPID PANEL triglyceride s 249 mg/dL 0-150 high NIH MARLENI NSUS REPOR T RECOM MENDA TION FOR TRIGL YCERI MARIA C: ADULT CHILD LOW RISK: <150 ----- BODER LINE: 150-1 99 ----- HIGH RISK: >200 ----- Not Available [facility] (Lab) [address] [place], [address], 07/27/2023 19:00:03 07/27/19 24 07/27/2023 LIPID PANEL HDL cholesterol 31 mg/dL 40- low Not Available [facility] (Lab) [address] [place], [address], 07/27/2023 19:00:03 07/27/19 24 07/27/2023 LIPID PANEL LDL cholesterol, calculated 63 mg/dL 0-130 NIH MARLENI NSUS REPOR T RECOM MENDA TIONS FOR LDL: ADULT CHILD LOW RISK <130 <110 (OPTI MAL LDL) <100 ----- KASANDRA RLINE : 130-1 59 ----- HIGH RISK: >160 >130 A TRIGL YCERI DE RESUL T >400 INVAL IDATE S THE CALCU LATIO N FOR LDL FRACT IONAT ION - THE LDL RESUL T WILL NOT BE REPOR CHACHA. Not Available [facility] (Lab) [address] [place], [address], 07/27/2023 19:00:03 07/27/19 24 07/27/2023 COMPR EHENS GUEVARA METAB OLIC PANEL sodium 137 mmol/ L 137-14 5 Not Available [facility] (Lab) [address] [place], [address], 07/27/2023 19:00:08 07/27/19 24 07/27/2023 COMPR EHENS GUEVARA METAB OLIC PANEL potassium 4.5 mmol/ L 3.5-5. 1 Not Available [facility] (Lab) [address] [place], [address], 07/27/2023 19:00:08 07/27/19 24 07/27/2023 COMPR EHENS GUEVARA METAB OLIC PANEL chloride 104 mmol/ L 98-107 Not Available [facility] (Lab) [address] [place], [address], 07/27/2023 19:00:08 07/27/19 24 07/27/2023 COMPR EHENS GUEVARA METAB OLIC PANEL carbon dioxide 30 mmol/ L 22-30 Not Available [facility] (Lab) [address] [place], [address], 07/27/2023 19:00:08 07/27/19 24 07/27/2023 COMPR EHENS GUEVARA METAB OLIC PANEL anion gap 7.5 mmol/ L 14-22 low Not Available [facility] (Lab) [address] [place], [address], 07/27/2023 19:00:08 07/27/19 24 07/27/2023 COMPR EHENS GUEVARA METAB OLIC PANEL glucose 130 mg/dL 70-99 high Not Available [facility] (Lab) [address] [place], [address], 07/27/2023 19:00:08 07/27/19 24 07/27/2023 COMPR EHENS GUEVARA METAB OLIC PANEL BUN 26 mg/dL 8-19 high Not Available [facility] (Lab) [address] [place], [address], 07/27/2023 19:00:08 07/27/19 24 07/27/2023 COMPR EHENS GUEVARA METAB OLIC PANEL creatinine 1.40 mg/dL 0.66-1 .25 high Not Available [facility] (Lab) [address] [place], [address], 07/27/2023 19:00:08 07/27/19 24 07/27/2023 COMPR EHENS GUEVARA METAB OLIC PANEL GFR 48 Refer ence Range : [place] ge GFR Healt hy Adult : >60 [...] calcu lator is avail able on the [facility] websi te: [email or web address] :[email or web address] [email or web address].soco haas.o rg/pr ofess ional s/kdo qi/gf r_cal culat or Not Available [facility] (Lab) [address] [place], [address], 07/27/2023 19:00:08 07/27/19 24 07/27/2023 COMPR EHENS GUEVARA METAB OLIC PANEL alkaline phosphatase 82 U/L 38-126 Not Available [facility] (Lab) [address] [place], [address], 07/27/2023 19:00:08 07/27/19 24 07/27/2023 COMPR EHENS GUEVARA METAB OLIC PANEL alanine aminotransfe rase 21 U/L 0-50 Not Available [facility] (Lab) [address] [place], [address], 07/27/2023 19:00:08 07/27/19 24 07/27/2023 COMPR EHENS GUEVARA METAB OLIC PANEL aspartate aminotransfe rase 25 U/L 15-46 Not Available [facility] (Lab) [address] [place], [address], 07/27/2023 19:00:08 07/27/19 24 07/27/2023 COMPR EHENS GUEVARA METAB OLIC PANEL bilirubin, total 0.70 mg/dL 0.20-1 .30 Not Available [facility] (Lab) [address] [place], [address], 07/27/2023 19:00:08 07/27/19 24 07/27/2023 COMPR EHENS GUEVARA METAB OLIC PANEL calcium 9.2 mg/dL 8.4-10 .2 Not Available [facility] (Lab) [address] [place], [address], 07/27/2023 19:00:08 07/27/19 24 07/27/2023 COMPR EHENS GUEVARA METAB OLIC PANEL total protein 6.9 g/dL 6.3-8. 2 Not Available [facility] (Lab) [address] [place], [address], 07/27/2023 19:00:08 07/27/19 24 07/27/2023 COMPR EHENS GUEVARA METAB OLIC PANEL albumin 4.1 g/dL 3.0-4. 4 Not Available [facility] (Lab) [address] [place], [address], 07/27/2023 19:00:08 07/27/19 24 07/27/2023 COMPR EHENS GUEVARA METAB OLIC PANEL globulin 2.8 g/dL 2.6-4. 2 Not Available [facility] (Lab) [address] [place], [address], 07/27/2023 19:00:08 07/27/19 24 07/27/2023 COMPR EHENS GUEVARA METAB OLIC PANEL A/G ratio 1.5 ratio 1.0-2. 0 Not Available [facility] (Lab) [address] [place], [address], 07/27/2023 19:00:08 11/25/19 24 11/25/2023 CBC/C OMPLE TE BLD COUNT W/DIF F white blood cells 9.2 x10'3 /uL 4.2-10 .8 Not Available [facility] (Lab) [address] [place], [address], 11/25/2023 14:01:39 11/25/19 24 11/25/2023 CBC/C OMPLE TE BLD COUNT W/DIF F red blood cells 4.58 x10'6 /uL 4.10-5 .80 Not Available [facility] (Lab) [address] [place], [address], 11/25/2023 14:01:39 11/25/19 24 11/25/2023 CBC/C OMPLE TE BLD COUNT W/DIF F hemoglobin 15.5 g/dL 13.2-1 7.0 Not Available [facility] (Lab) [address] [place], [address], 11/25/2023 14:01:39 11/25/19 24 11/25/2023 CBC/C OMPLE TE BLD COUNT W/DIF F hematocrit 47.4 % 39.3-5 0.0 Not Available [facility] (Lab) [address] [place], [address], 11/25/2023 14:01:39 11/25/19 24 11/25/2023 CBC/C OMPLE TE BLD COUNT W/DIF F mean red cell volume 103.5 fL 80.0-9 7.0 high Not Available [facility] (Lab) [address] [place], [address], 11/25/2023 14:01:39 11/25/19 24 11/25/2023 CBC/C OMPLE TE BLD COUNT W/DIF F mean red cell hemoglobin 33.8 pg 27.0-3 3.0 high Not Available [facility] (Lab) [address] [place], [address], 11/25/2023 14:01:39 11/25/19 24 11/25/2023 CBC/C OMPLE TE BLD COUNT W/DIF F mean RBC HGB concentratio n 32.7 g/dL 31.0-3 6.0 Not Available [facility] (Lab) [address] [place], [address], 11/25/2023 14:01:39 11/25/19 24 11/25/2023 CBC/C OMPLE TE BLD COUNT W/DIF F red cell distribution width 13.9 % 11.8-1 5.5 Not Available [facility] (Lab) [address] [place], [address], 11/25/2023 14:01:39 11/25/19 24 11/25/2023 CBC/C OMPLE TE BLD COUNT W/DIF F platelets 275 x10'3 /uL 150-40 0 Not Available [facility] (Lab) [address] [place], [address], 11/25/2023 14:01:39 11/25/19 24 11/25/2023 CBC/C OMPLE TE BLD COUNT W/DIF F mean platelet volume 10.6 fL 9.0-12 .4 Not Available [facility] (Lab) [address] [place], [address], 11/25/2023 14:01:39 11/25/19 24 11/25/2023 CBC/C OMPLE TE BLD COUNT W/DIF F neutrophils 70.3 % 39.0-7 2.0 Not Available [facility] (Lab) [address] [place], [address], 11/25/2023 14:01:39 11/25/19 24 11/25/2023 CBC/C OMPLE TE BLD COUNT W/DIF F lymphocytes 16.6 % 16.0-4 7.0 Not Available [facility] (Lab) [address] [place], [address], 11/25/2023 14:01:39 11/25/19 24 11/25/2023 CBC/C OMPLE TE BLD COUNT W/DIF F monocytes 9.4 % 5.0-12 .0 Not Available [facility] (Lab) [address] [place], [address], 11/25/2023 14:01:39 11/25/19 24 11/25/2023 CBC/C OMPLE TE BLD COUNT W/DIF F eosinophils 2.9 % 1.0-7. 0 Not Available [facility] (Lab) [address] [place], [address], 11/25/2023 14:01:39 11/25/19 24 11/25/2023 CBC/C OMPLE TE BLD COUNT W/DIF F basophils 0.4 % 0.0-2. 0 Not Available [facility] (Lab) [address] [place], [address], 11/25/2023 14:01:39 11/25/19 24 11/25/2023 CBC/C OMPLE TE BLD COUNT W/DIF F immature granulocytes 0.4 % 0.00-0 .50 Not Available [facility] (Lab) [address] [place], [address], 11/25/2023 14:01:39 11/25/19 24 11/25/2023 CBC/C OMPLE TE BLD COUNT W/DIF F neutrophils, absolute count 6.49 x10'3 /uL 1.5-8. 0 Not Available [facility] (Lab) [address] [place], [address], 11/25/2023 14:01:39 11/25/19 24 11/25/2023 CBC/C OMPLE TE BLD COUNT W/DIF F lymphocytes, absolute count 1.53 x10'3 /uL 1.07-3 .43 Not Available [facility] (Lab) [address] [place], [address], 11/25/2023 14:01:39 11/25/19 24 11/25/2023 CBC/C OMPLE TE BLD COUNT W/DIF F monocytes, absolute count 0.87 x10'3 /uL 0.29-0 .99 Not Available [facility] (Lab) [address] [place], [address], 11/25/2023 14:01:39 11/25/19 24 11/25/2023 CBC/C OMPLE TE BLD COUNT W/DIF F eosinophils, absolute count 0.27 x10'3 /uL 0.02-0 .53 Not Available [facility] (Lab) [address] [place], [address], 11/25/2023 14:01:39 11/25/19 24 11/25/2023 CBC/C OMPLE TE BLD COUNT W/DIF F basophils, absolute count 0.04 x10'3 /uL 0.01-0 .08 Not Available [facility] (Lab) [address] [place], [address], 11/25/2023 14:01:39 11/25/19 24 11/25/2023 CBC/C OMPLE TE BLD COUNT W/DIF F immature granulocytes ,absolute 0.04 x10'3 /uL 0.00-0 .05 Not Available [facility] (Lab) [address] [place], [address], 11/25/2023 14:01:39 11/25/19 24 11/25/2023 CBC/C OMPLE TE BLD COUNT W/DIF F nucleated red blood cells 0.0 % -0 Not Available [facility] (Lab) [address] [place], [address], 11/25/2023 14:01:39 11/25/19 24 11/25/2023 CBC/C OMPLE TE BLD COUNT W/DIF F NRBC# 0.00 x10'3 /uL Not Available [facility] (Lab) [address] [place], [address], 11/25/2023 14:01:39 11/25/19 24 11/25/2023 COMPR EHENS GUEVARA METAB OLIC PANEL sodium 139 mmol/ L 137-14 5 Not Available [facility] (Lab) [address] [place], [address], 11/25/2023 17:02:48 11/25/19 24 11/25/2023 COMPR EHENS GUEVARA METAB OLIC PANEL potassium 4.9 mmol/ L 3.5-5. 1 Not Available [facility] (Lab) [address] [place], [address], 11/25/2023 17:02:48 11/25/19 24 11/25/2023 COMPR EHENS GUEVARA METAB OLIC PANEL chloride 105 mmol/ L 98-107 Not Available [facility] (Lab) [address] [place], [address], 11/25/2023 17:02:48 11/25/19 24 11/25/2023 COMPR EHENS GUEVARA METAB OLIC PANEL carbon dioxide 30 mmol/ L 22-30 Not Available [facility] (Lab) [address] [place], [address], 11/25/2023 17:02:48 11/25/19 24 11/25/2023 COMPR EHENS GUEVARA METAB OLIC PANEL anion gap 8.9 mmol/ L 14-22 low Not Available [facility] (Lab) [address] [place], [address], 11/25/2023 17:02:48 11/25/19 24 11/25/2023 COMPR EHENS GUEVARA METAB OLIC PANEL glucose 122 mg/dL 70-99 high Not Available [facility] (Lab) [address] [place], [address], 11/25/2023 17:02:48 11/25/19 24 11/25/2023 COMPR EHENS GUEVARA METAB OLIC PANEL BUN 22 mg/dL 8-19 high Not Available [facility] (Lab) [address] [place], [address], 11/25/2023 17:02:48 11/25/19 24 11/25/2023 COMPR EHENS GUEVARA METAB OLIC PANEL creatinine 1.25 mg/dL 0.66-1 .25 Not Available [facility] (Lab) [address] [place], [address], 11/25/2023 17:02:48 11/25/19 24 11/25/2023 COMPR EHENS GUEVARA METAB OLIC PANEL GFR 55 Refer ence Range : [place] ge GFR Healt hy Adult : >60 [...] or ethni c subgr oups, such as [facility] nics. Outsi de the valid ated andrzej [...] calcu lator is avail able on the [facility] websi te: https :[email or web address] black rg/pr ofess ional s/kdo qi/gf r_cal culat or Not Available [facility] (Lab) [address] [place], [address], 11/25/2023 17:02:48 11/25/19 24 11/25/2023 COMPR EHENS GUEVARA METAB OLIC PANEL alkaline phosphatase 98 U/L 38-126 Not Available [facility] (Lab) [address] [place], [address], 11/25/2023 17:02:48 11/25/19 24 11/25/2023 COMPR EHENS GUEVARA METAB OLIC PANEL alanine aminotransfe rase 18 U/L 0-50 Not Available [facility] (Lab) [address] [place], [address], 11/25/2023 17:02:48 11/25/19 24 11/25/2023 COMPR EHENS GUEVARA METAB OLIC PANEL aspartate aminotransfe rase 24 U/L 15-46 Not Available [facility] (Lab) [address] [place], [address], 11/25/2023 17:02:48 11/25/19 24 11/25/2023 COMPR EHENS GUEVARA METAB OLIC PANEL bilirubin, total 0.90 mg/dL 0.20-1 .30 Not Available [facility] (Lab) [address] [place], [address], 11/25/2023 17:02:48 11/25/19 24 11/25/2023 COMPR EHENS GUEVARA METAB OLIC PANEL calcium 9.3 mg/dL 8.4-10 .2 Not Available [facility] (Lab) [address] [place], [address], 11/25/2023 17:02:48 11/25/19 24 11/25/2023 COMPR EHENS GUEVARA METAB OLIC PANEL total protein 7.4 g/dL 6.3-8. 2 Not Available [facility] (Lab) [address] [place], [address], 11/25/2023 17:02:48 11/25/19 24 11/25/2023 COMPR EHENS GUEVARA METAB OLIC PANEL albumin 4.2 g/dL 3.0-4. 4 Not Available [facility] (Lab) [address] [place], [address], 11/25/2023 17:02:48 11/25/19 24 11/25/2023 COMPR EHENS GUEVARA METAB OLIC PANEL globulin 3.2 g/dL 2.6-4. 2 Not Available [facility] (Lab) [address] [place], [address], 11/25/2023 17:02:48 11/25/19 24 11/25/2023 COMPR EHENS GUEVARA METAB OLIC PANEL A/G ratio 1.3 ratio 1.0-2. 0 Not Available [facility] (Lab) [address] [place], [address], 11/25/2023 17:02:48 11/25/19 24 11/25/2023 LIPID PANEL cholesterol 134 mg/dL 140-19 9 low NIH MARLENI NSUS RECOM MENDA TION FOR CLARE STERO L: ADULT CHILD LOW RISK: <200 <170 BORDE RLINE : <200- 239 ----- HIGH RISK: >240 >200 Not Available [facility] (Lab) [address] [place], [address], 11/25/2023 17:02:49 11/25/19 24 11/25/2023 LIPID PANEL triglyceride s 211 mg/dL 0-150 high NIH MARLENI NSUS REPOR T RECOM MENDA TION FOR TRIGL YCERI MARIA C: ADULT CHILD LOW RISK: <150 ----- BODER LINE: 150-1 99 ----- HIGH RISK: >200 ----- Not Available [facility] (Lab) [address] [place], [address], 11/25/2023 17:02:49 11/25/19 24 11/25/2023 LIPID PANEL HDL cholesterol 33 mg/dL 40- low Not Available [facility] (Lab) [address] [place], [address], 11/25/2023 17:02:49 11/25/19 24 11/25/2023 LIPID PANEL [...] WILL NOT BE REPOR CHACHA. Not Available [facility] (Lab) [address] [place], [address], 11/25/2023 17:02:49 Result Notes None recorded. Problems Name Problem SNOMED Code Status Onset Date Resolution Date Notes Provider Name and Address Organization Details Recorded Time Pain in both feet 87878040748 457378 Active 2022 Not Available [facility] 3 18:20:36 Renewal of prescript ion Active 2021 Not Available [facility] 3 18:20:35 Pain of bilateral hands 06706221401 948878 Active 2021 Not Available [facility] 3 18:20:36 Ingrowing nail of toe of right foot 79603657404 743227 Active 2022 Not Available [facility] 3 18:20:36 Blood glucose outside reference range 499711346 Active 2021 Not Available [facility] 3 18:20:36 Gastroeso phageal reflux disease without esophagit is 029542298 Active 2020 Not Available [facility] 3 18:20:36 Benign prostatic hyperplas ia 624209042 Active 2021 Not Available [facility] 3 18:20:36 Intermitt ent confusion 557994991 Active 2021 Not Available [facility] 3 18:20:36 Confusion al state 705570179 Active 2021 Not Available [facility] 3 18:20:36 Numbness of hand 120174398 Active 2021 Not Available [facility] 3 18:20:36 Inguinal hernia 726459150 Completed Not Available [facility] 3 03:05:53 Chronic atrial fibrillat ion 104390419 Active 2020 Not Available [facility] 3 18:20:36 Acute upper respirato ry infection 40257096 Active 2021 Not Available [facility] 3 18:20:36 Hyperlipi demia 17793770 Active Not Available [facility] 3 18:20:36 Carpal tunnel syndrome 81515718 Active 2021 Not Available [facility] 3 18:20:36 COVID-19 554246780 Active 2021 Not Available [facility] 3 18:20:36 Dystrophi a unguium 48709567 Active 2020 Not Available [facility] 3 18:20:36 Sinusitis 65757137 Active 2022 Not Available [facility] 3 18:20:36 Insomnia 656485175 Active 2022 Not Available [facility] 3 18:20:36 Weakness present 839249483 Active 2023 HECTOR Mclaughlin null, [place] - [facility] [employer] 4 15:26:10 Pain of toe of right foot 40703778498 9101 Active 2023 Josep Bey DPM [address] [facility], [place] [address], [place], [address] , [facility] [employer] [facility] 4 13:07:53 Unable to cut own toenails 767943024 Active 2023 Josep Bey DPM [address], [address], [place], [address] , [employer] [facility] 14:33:17 Problem Notes None recorded. Procedures Surgical History Date Name Laterality Status Provider Name and Address Organization Details Recorded Time 09/13/19 25 Nail Debridement completed Josep Bey DPM [address], [address], [place], [address], [employer] [facility] [employer] [facility] 09/12/2024 13:41:32 06/17/19 25 Nail Debridement completed Josep Bey DPM [address], [address], [place], [address], [employer] [facility] [employer] 06/16/2024 13:22:51 03/21/20 24 Nail Debridement completed Josep Bey DPM [address], [address], [place], [address], [employer] [facility] [employer] [facility] [employer] 03/21/2024 11:56:09 11/12/19 24 Nail Debridement completed Josep Bey DPM [address], [address], [place], [address], [employer] [facility] 11/12/2023 15:03:43 08/10/19 24 Nail Debridement completed Josep Bey DPM [address], [address], [place], [address], [employer] [facility] [employer] 08/10/2023 14:33:49 05/11/19 24 Nail Debridement completed Josep Bey DPM [address], [place], [address], [employer] [facility] [employer] [facility] 05/11/2023 13:07:42 02/17/20 23 Nail Debridement completed Josep Bey DPM [address], [place], [address], [employer] - [facility] [employer] [facility] 02/16/2023 11:25:21 11/18/19 23 Nail Debridement completed Josep Bey DPM [address], [place], [address], [employer] [facility] 11/17/2022 10:35:29 08/19/19 23 Nail Debridement completed Josep Bey, SYLVIE [address] [facility], [address], [place], [address], [facility] - [facility] [employer] [facility] 08/18/2022 11:16:17 01/02/20 22 Hand completed Not Available [facility] 03:02:46 06/24/19 18 Colonoscopy completed Not Available [facility] 06/05/19 03:02:46 03/28/20 13 Rerepair ing hernia reduce completed Not Available [facility] 06/04/2022 03:02:46 09/02/19 08 Colonoscopy completed Not Available [facility] 06/05/19 03:02:46 Hernia Repair completed Not Available [facility] 06/04/2022 03:02:46 Excisions - Specify completed Not Available [facility] 06/04/2022 03:02:46 Imaging Results None recorded. Procedure [...] every day by oral route at bedtime. 04/28 completed Not Available Not Available Not Available [...] completed Not Available Not Available Not Available midodrine 2.5 mg tablet TAKE 1 TABLET BY MOUTH THREE TIMES DAILY active Not Available Not Available No t Available polyethyl debora glycol 3350 17 gram/dose [...] Available Not Available Not Available amoxicill in 875 mg-potass ium clavulana te 125 mg tablet TAKE 1 TABLET BY MOUTH EVERY 12 HOURS FOR 7 DAYS active Not Available Not Available No t Available rosuvasta tin 20 mg tablet TAKE 1 TABLET DAILY active Not Available Not Available No t Available mirtazapi ne 7.5 mg tablet TAKE ONE TABLET BY MOUTH NIGHTLY 03/03 completed Not Available Not Available Not Available Aspir-81 1 daily 12/10 completed Not Available Not Available Not Available [...] in Arterial blood by Pulse oximetry Systolic And Diastolic Provider Name and Address Organization Details Last Updated DateTime 5 187.96 cm 23.8 kg/m2 82882.5 9 g 71 /min 14 /min 97 % 97 % 136/87 mm[Hg] Asuncion Weiss [place] [employer] [facility] 5 12:12:18 Date Recorded Body height Body mass index (BMI) Body weight Heart rate Respiratory rate Oxygen saturation Oxygen saturation in Arterial blood by Pulse oximetry Systolic And Diastolic Provider Name and Address Organization Details Last Updated DateTime 4 187.96 cm 23.8 kg/m2 73325.5 9 g 78 /min 14 /min 97 % 97 % 121/67 mm[Hg] Asuncion Funk [facility] Earnest [facility] 4 12:13:04 Date Recorded Body height Body mass index (BMI) Body weight Heart rate Respiratory rate Oxygen saturation Oxygen saturation in Arterial blood by Pulse oximetry Systolic And Diastolic Provider Name and Address Organization Details Last Updated DateTime 5 187.96 cm 23.8 kg/m2 56354.5 9 g 82 /min 14 /min 97 % 97 % 80/46 mm[Hg] Asuncion Funk [facility] 5 11:55:58 Date Recorded Body height Body mass index (BMI) Body weight Heart rate Respiratory rate Body temperature Oxygen saturation Oxygen saturation in Arterial blood by Pulse oximetry Systolic And Diastolic Provider Name and Address Organization Details Last Updated DateTime 4 187.96 cm 23.8 kg/m2 02829.5 9 g 76 /min 14 /min 98.6 [degF] 98 % 98 % 120/70 mm[Hg] Yudi Dsouza MA [facility]est [facility] 4 12:40:15 Date Recorded Body height Body mass index (BMI) Body weight Heart rate Respiratory rate Oxygen saturation Oxygen saturation in Arterial blood by Pulse oximetry Systolic And Diastolic Provider Name and Address Organization Details Last Updated DateTime 4 187.96 cm 23.8 kg/m2 21863.5 9 g 78 /min 14 /min 98 % 98 % 116/73 mm[Hg] Asuncion Funk [facility]est [facility] 4 11:06:27 Social History Question Answer Notes LastModified by Organizat ion Details LastModified Time Tobacco Smoking Status Never Smoker Not Available [employer] 06/04/2022 02:53:46 Do You Have An Advance Directive? Yes MIGRATION.82349 91391 Information not available 06/04/2022 Are You Blind Or Do You Have Difficulty Seeing? Yes MIGRATION.77052 14897 Information not available 06/04/2022 What Is Your Level Of Caffeine Consumption? Occasional MIGRATION.10385 90939 Information not available 06/04/2022 How Much Tobacco Do You Chew? None MIGRATION.06325 73836 Information not available 06/04/2022 In The 14 Days Before Symptom Onset, Have You Had Close Contact With A Laboratory-confi rmed COVID-19 While That Case Was Ill? No MIGRATION.70863 22173 Information not available 06/04/2022 In The 14 Days Before Symptom Onset, Have You Had Close Contact With A Person Who Is Under Investigation For COVID-19 While That Person Was Ill? No MIGRATION.01879 07933 Information not available 06/04/2022 Are You Deaf Or Do You Have Serious Difficulty Hearing? No MIGRATION.48622 94737 Information not available 06/04/2022 What Type Of Diet Are You Following? REGULAR MIGRATION.10467 07371 Information not available 06/04/2022 Which Illicit Or Recreational Drugs Have You Used? None MIGRATION.56694 35272 Information not available 06/04/2022 What Is The Highest Grade Or Level Of School You Have Completed Or The Highest Degree You Have Received? [id number] MIGRATION.69518 33574 Information not available 06/04/2022 Have There Been Any Changes To Your Family Or Social Situation? No MIGRATION.51491 41731 Information not available 06/04/2022 What Is The Fluoride Status Of Your Home? Unknown MIGRATION.13992 63173 Information not available 06/04/2022 Are There Any Guns Present In Your Home? Yes MIGRATION.80507 40786 Information not available 06/04/2022 Do You Use Insect Repellent Routinely? No MIGRATION.43568 58863 Information not available 06/04/2022 Where [facility] You Live? [facility] MIGRATION.44786 09220 Information not available 06/04/2022 Do You Have A Medical Power Of Balancer? Yes MIGRATION.44404 33714 Information not available 06/04/2022 What Was The Date Of Your Most Recent Tobacco Screening? 04/28/2023 [email or web address] Information not available 04/28/2023 Do You Have Any Pets? No MIGRATION.00988 67905 Information not available 06/04/2022 What Is Your Relationship Status? MIGRATION.29972 12918 Information not available 06/04/2022 Do You Use Your Seat Belt Or Car Seat Routinely? Yes MIGRATION.03043 76918 Information not available 06/04/2022 Do You Have Smoke And Carbon Monoxide Detectors In Your Home? Yes MIGRATION.35287 02741 Information not available 06/04/2022 Are You Passively Exposed To Smoke? No MIGRATION.81553 76668 Information not available 06/04/2022 Are There Any Smokers In Your House? No MIGRATION.80536 70635 Information not available 06/04/2022 How Much Tobacco Do You Smoke? No MIGRATION.90957 62768 Information not available 06/04/2022 What Types Of Sporting Activities Do You Participate In? None MIGRATION.17753 94601 Information not available 06/04/2022 Do You Use Sunscreen Routinely? Yes MIGRATION.31922 29084 Information not available 06/04/2022 Has Tobacco Cessation Counseling Been Provided? No Not Needed-ne alejo Smoked MIGRATION.97856 07931 Information not available 06/04/2022 How Many Years Have You Smoked Tobacco? 0 MIGRATION.65242 41790 Information not available 06/04/2022 Have You Recently Traveled Abroad? No MIGRATION.63650 98486 Information not available 06/04/2022 Do You Have Difficulty Walking Or Climbing Stairs? Yes MIGRATION.85205 17820 Information not available 06/04/2022 Do You Have Any Dietary Restrictions? No MIGRATION.71605 68241 Information not available 06/04/2022 Sex: Male Functional Status Question Answer Note LastModified by Infer ion Details LastModified Time Do you use any illicit or recreational drugs? No MIGRATION.568889 9048 Information not available 06/04/2022 Do you or have you ever used any other forms of tobacco or nicotine? No MIGRATION.074733 3128 Information not available 06/04/2022 What is your level of alcohol consumption? None MIGRATION.977387 7554 Information not available 06/04/2022 Do you or have you ever used smokeless tobacco? Never used smokeless tobacco MIGRATION.224899 1171 Information not available 06/04/2022 Do you have transportation difficulties? No MIGRATION.909425 0084 Information not available 06/04/2022 Are you able to walk? YESWOREST MIGRATION.740413 5406 Information not available 06/04/2022 Do you have difficulty doing errands alone? Yes MIGRATION.503960 3028 Information not available 06/04/2022 Are you able to care for yourself? No MIGRATION.524034 9279 Information not available 06/04/2022 What is your occupation? retired MIGRATION.327915 1313 Information not available 06/04/2022 Do you have difficulty dressing or bathing? Yes MIGRATION.266356 0133 Information not available 06/04/2022 Do you or have you ever used e-cigarettes or vape? Never used electronic cigarettes MIGRATION.430958 2614 Information not available 06/04/2022 What is your exercise level? None MIGRATION.430261 9579 Information not available 06/04/2022 Mental Status Question Answer Note LastModified by Organizat ion Details LastModified Time Do you feel stressed (tense, restless, nervous, or anxious, or unable to sleep at night)? [id number] MIGRATION.02070201 26 Information not available 06/04/2022 Do you have difficulty concentrating, remembering or making decisions? Yes MIGRATION.88892275 26 Information not available 06/04/2022 Family History Relationship Description Onset Age of this Age Resolved Age Notes LastModified by Organization Details LastModified Time Mother Pulmonary embolism MIGRATION.796 [id number] Not available 06/04/2022 03:02:47 Mother Malignant melanoma of skin MIGRATION.321 0818513 Not available 06/04/2022 03:02:47 Mother Carotid artery stenosis MIGRATION.395 7304514 Not available 06/04/2022 03:02:47 Father Benign essential hypertension MIGRATION.496 6657123 Not available 06/04/2022 03:02:47 Medical History Condition [...] HAVE YOU BEEN HOSPITALIZED OR SEEN IN [facility] IN THE PAST YEAR ? N [...] high-dose, quadrivalent, PF 01/06/2019 completed Not Available [facility] 18:20:36 Influenza, high-dose, trivalent, PF 01/06/2018 completed Not Available [facility] 2022 18:20:36 Influenza, high-dose, trivalent, PF 02/20/2017 completed Not Available [facility] 2022 18:20:36 Influenza, high-dose, trivalent, PF 01/20/2016 completed Not Available [facility] 2022 18:20:36 Influenza, split virus, trivalent, PF 02/15/2014 completed Not Available [facility] 2022 18:20:36 Influenza, high-dose, trivalent, PF 02/08/2013 completed Not Available [facility] 2022 18:20:36 Influenza, high-dose, quadrivalent, PF 02/06/2022 completed Not Available [facility] 18:20:36 Past Encounters Encounter ID Performer Location Encounter Start Date Encounter Closed Date Diagnosis/Indication Diagnosis SNOMED-CT Code Diagnosis ICD10 Code Diagnosis Note [id number] [facility] [place] [address] [place] [address] 07/12/2020 00:00:00 07/16/2020 08:55:00 [id number] [facility] [place] [address] [place] [address] 09/26/2020 00:00:00 09/28/2020 17:15:13 [id number] Evon Yoon MD [facility] Internal Med [place] [address] [place] [address] y , [place] [address] 10/18/2020 00:00:00 10/18/2020 22:40:38 [id number] Evon Yoon MD [facility] Internal [place] [address] [place] [address] y , [place] [address] 01/03/2021 00:00:00 01/25/2021 22:05:43 [id number] Evon Yoon MD [facility] Internal Med [place] [address] [place] [address] y , [place] [address] 01/24/2021 00:00:00 02/04/2021 21:49:02 [id number] [facility] General Surgery 4 [facility], [address] [address] 01/28/2021 00:00:00 01/29/2021 14:42:35 [id number] [facility] [place] [address] [place] [address] 02/18/2021 00:00:00 02/18/2021 15:45:28 [id number] Evon Yoon MD [facility] Internal Med [place] [address] [place] [address] y , [place] [address] 03/05/2021 00:00:00 03/06/2021 23:42:00 [id number] Evon Yoon MD [facility] Internal Med [place] [address] [place] [address] y , [place] [address] 04/23/2021 00:00:00 04/27/2021 15:55:23 [id number] [facility] [place] [address] [place] [address] 05/02/2021 00:00:00 05/02/2021 13:28:30 [id number] Evon Yoon MD S[facility] Internal Med [facility] [address] [facility] y , [place] [address] 05/23/2021 00:00:00 06/01/2021 14:18:29 [id number] S[facility] [place] [address] [place] [address] 07/08/2021 00:00:00 07/09/2021 11:37:15 [id number] Evon Yoon MD [facility] Internal Med [address] y , [place] [address] 08/22/2021 00:00:00 09/14/2021 17:58:24 [id number] S_[facility] [place] [address] [place] [address] 09/23/2021 00:00:00 09/24/2021 10:14:51 [id number] Evon Yoon MD [facility] Internal Med [address] y , [address] [address] 11/21/2021 00:00:00 12/15/2021 22:30:19 [id number] S[facility] [place] [address] [place] [address] 12/02/2021 00:00:00 12/02/2021 21:12:55 [id number] Stewart Priest MD S_[facility] Ortho [place] [address] [place] [address] 12/10/2021 00:00:00 12/10/2021 12:06:03 [id number] Stewart Priest MD S[facility] Ortho [place] [address] [place] [address] 01/14/2022 00:00:00 01/14/2022 10:07:56 [id number] Evon Yoon MD [facility] Internal Med [facility] [address] [facility] [address] 02/06/2022 00:00:00 02/08/2022 14:36:19 [id number] S[facility] ic_Gateway [facility] Podiatry [place] [address] [place] [address] 02/17/2022 00:00:00 02/18/2022 10:45:17 [id number] Stewart Priest MD [facility] Ortho [place] [address] [place] [address] 02/25/2022 00:00:00 02/25/2022 17:04:37 [id number] Stewart Priest MD [facility] Ortho [place] [address] [place] [address] 04/29/2022 00:00:00 04/30/2022 06:38:56 [id number] Josep Bey DPM [facility] Podiatry [place] [address] [place] [address] 05/19/2022 00:00:00 05/19/2022 10:48:36 [id number] Evon Yoon MD [facility] Internal Med [facility] [address] [place] [address] [place] [address] 06/19/2022 10:39:08 06/19/2022 11:47:07 Hyperlipidemia 40020556 E78.5 Renewal of prescription 109144482 Z76.0 Benign pro static hyperplasia 167732011 N40.0 Chronic at rial fibrillation 054237264 I48.20 Gastroesop hageal reflux disease without esophagitis 285810808 K21.9 [id number] Josep Bey DPM [facility] Podiatry [place] [address] [place] [address] 08/18/2022 10:44:34 08/18/2022 11:19:22 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 Nails were debrided and greater than 50% length and thickness where needed. Unable to cut own toenails 497187061 Z74.1 Pain in both feet 781299 5703 0170405 M79.671 M79.672 Secondary to nailsRecom mend supportive shoe gear and continue custom orthotics secondary to toe deformityM onitor for wounds daily if present seek medical attention immediatel yFollow-up in 3 months [id number] Evon Yoon MD [facility] Internal Med [place] [address] [facility] [place] [address] 10/14/2022 15:09:49 10/14/2022 15:58:17 Benign prostatic hyperplasia 509053342 N40.0 Chronic at rial fibrillation 280367625 I48.20 Gastroesop hageal reflux disease without esophagitis 059360470 K21.9 Hyperlipidemia 47610210 E78.5 [id number] Josep Bey DPM [facility] Podiatry [place] [address] [address] 11/17/2022 10:10:51 11/17/2022 10:42:39 Dystrophia unguium 36808624 L60.3 Nails 1 through 10 were debrided with sharp mechanical debridemen t without incident. Nails were debrided and greater than 50% length and thickness where needed. Unable to cut own toenails 944082582 Z74.1 [id number] Josep Bey DPM [facility] Podiatry [place] [address] [address] 02/16/2023 11:18:59 02/16/2023 12:09:48 Dystrophia unguium 78607003 L60.3 Nails 1 through 10 were debrided with sharp mechanical debridemen t without incident. Nails were debrided and greater than 50% length and thickness where needed. Unable to cut own toenails 859595954 Z74.1 Pain in both feet 643697 4637 9345880 M79.671 M79.672 Secondary to nailsRecom mend supportive shoe gear and continue custom orthotics secondary to toe deformityM onitor for wounds daily if present seek medical attention immediatel yFollow-up in 3 months [id number] Evon Yoon MD [facility] Internal [address] y [place] [address] 03/03/2023 15:08:10 03/03/2023 16:33:23 Hyperlipidemia 41681136 E78.5 Long-term drug therapy 894769613 Z79.899 Insomnia 629491583 G47.0 0 Benign pro static hyperplasia 073701875 N40.0 Chronic at rial fibrillation 060184227 I48.20 Gastroesop hageal reflux disease without esophagitis 679517651 K21.9 [id number] Evon Yoon MD [facility] Internal [facility] [address] [place] [address] , [place] [place] [address] 04/28/2023 09:42:36 04/28/2023 12:15:53 Benign prostatic hyperplasia 486677384 N40.0 Chronic at rial fibrillation 951936202 I48.20 Gastroesop hageal reflux disease without esophagitis 854679556 K21.9 [id number] Josep Bey DPM [facility] [place]iatry [place] [address] [place] [address] 05/11/2023 12:03:36 05/19/2023 13:08:18 Ingrowing nail of toe of right foot 1869810209 9486194 L60.0 slant back procedureM onitor for new infection if present seek medical attention immediatel yIf continues to be problemati c may require partial matrix procedure Dystrophia unguium 34886 009 L60.3 Nails 1 through 10 were debrided with sharp mechanical debridemen t without incident. Nails were debrided and greater than 50% length and thickness where needed. Pain of to e of right foot 6044070345 32551 M79.042 [id number] Josep Bey DPM [facility] Podiatry [place] [address] [place] [address] 08/10/2023 11:57:44 08/10/2023 14:45:52 Pain in both feet 0713092366 8400327 M79.671 M79.672 Secondary to nailsRecom mend supportive shoe gear and continue custom orthotics secondary to toe deformityM onitor for wounds daily if present seek medical attention immediatel yFollow-up in 3 months Dystrophia unguium 74215 009 L60.3 Nails 1 through 10 were debrided with sharp mechanical debridemen t without incident. Nails were debrided and greater than 50% length and thickness where needed. Unable to cut own toenails 432221837 Z74.1 [id number] Josep Bey DPM [facility] Podiatry [place] [address] [place] [address] 11/12/2023 12:13:03 11/12/2023 16:28:20 Dystrophia unguium 00295246 L60.3 Nails 1 through 10 were debrided with sharp mechanical debridemen t without incident. Nails were debrided and greater than 50% length and thickness where needed. Unable to cut own toenails 449106985 Z74.1 [id number] Josep Bey DPM [facility] Podiatry [place] [address] [place] [address] 03/21/2024 10:54:25 04/01/2024 08:21:21 Dystrophia unguium 91542125 L60.3 Nails 1 through 10 were debrided with sharp mechanical debridemen t without incident. Nails were debrided and greater than 50% length and thickness where needed. Unable to cut own toenails 649505619 Z74.1 [id number] Josep Bey DPM [facility] Podiatry [place] [address] [place] [address] 06/16/2024 11:52:44 06/21/2024 11:15:21 Dystrophia unguium 02357865 L60.3 Nails 1 through 10 were debrided with sharp mechanical debridemen t without incident. Nails were debrided and greater than 50% length and thickness where needed. Unable to cut own toenails 434399744 Z74.1 [id number] Josep Bey DPM [facility] Pod[facility] [place] [address] [place] [address] 09/12/2024 11:42:42 09/13/2024 11:13:38 Dystrophia unguium 87343151 L60.3 Nails 1 through 10 were debrided with sharp mechanical debridemen t without incident. Nails were debrided and greater than 50% length and thickness where needed. Unable to cut own toenails 919696510 Z74.1 Health Concerns Section Related Observation LastModified by Organization Detai ls LastModified Time None Recorded Concern Status LastModified by Organization Details LastModified Time None Recorded Advance Directives Directive Y: Payers Insurance Date Sequence Insurance Name Policy Number Policy Simpson Covered Member ID Simpson Member ID Guarantor Name 09/12/2024 1 [facility] (MEDICARE REPLACEMENT/ ADVANTAGE - PPO) [id number] Petar Marquez [id number] Petar Marquez Notes Date Note Type Note Provider Name and Address Organization Details Recorded Time 08/10/2023 text/html . Patient is an 82-year-old male who returns to the office for painful toenails. Patient denies any other complaints. Josep Bey DPM [address], [facility] [employer], [place], [address], [employer] 08/10/2023 14:34:05 11/12/2023 text/html Patient is an [...] complaints. Josep Bey DPM [address], [facility] [address], [place], [address], [employer] 11/12/2023 15:04:00 03/21/2024 text/html . Patient is an 83-year-old male he presents the office with his for routine foot care. Patient has dementia is unable to care for his feet. Patient has elongated toenails which need to be cut to prevent open wounds infection. Patient and denies any other complaints from the patient. Josep Bey DPM [address], [address], [place], [address], [employer] 03/21/2024 11:57:51 06/16/2024 text/html Patient is an 83-year-old male he presents for routine foot care. Patient is unable to care for his feet in presents with his for nail care. Patient has no specific complaints. History is mainly from his . Who states he needs his nails cut. Josep Bey DPM [address], [address], [place], [address], [employer] 06/16/2024 13:43:31 09/12/2024 text/html . Patient is an 83-year-old male who returns to the office with his . Patient presents for nail care. Patient denies any other complaints. Josep Bey DPM [address], [address], [place], [address], [employer] 09/12/2024 13:42:48
--- OUTSIDE RECORDS SUMMARY | 2024-10-15 10:55 | XMS_ITS | Encounter Summary ---
Author Organization [facility] Address [address] [place] [address] Phone Care Team Providers Care Electronic Equipment Set Up Operator Name Role Phone Nick Yoon MD Primary Care Provider [phone] Mark Montiel MD Unavailable [phone] Reason for Visit * Reason Comments Medication Refill Encounter Details Date Type Department Care Team (Late st Contact Info) Description 03/10/2023 Refill [facility] - Neurology [facility] [address] [place] [phone] Mark Montiel MD [address] [place] [phone] Medication Refill Social History Tobacco Use Types Packs/Day Years Used Date Smoking Tobacco: Never Smokeless Tobacco: Never Alcohol Use Standard Drinks/Week Comments Not Currently 0 (1 standard drink = 0.6 oz pur e alcohol) Sex and Gender Information Value Date Recorded Sex Assigned at Not on file Legal Sex Male 11:28 AM KIER HAND Gender Identity Not on file Sexual Orientation [...] Dept 01/22/23 Office Visit Mark Montiel MD [facility] [place] [facility]/22 Office Visit Mark Montiel MD [facility] Neurology [facility] 06/30/22 Office Visit Mark Montiel MD [facility] [place] Neu[place] [facility] Showing recent visits within past 365 days and meeting all other requirements Future Appointments No visits were found meeting these conditions. Showing future appointments within next 90 days and meeting all other requirements HAND documented in this encounter Plan of Treatment Not on file documented as of this encounter Visit Diagnoses Not on filedocumented in this encounter Care Teams Electronic Equipment Set Up Operator Relationship Specialty Start Date End Date Nick Yoon MD PCP - General Internal Medicine 03/26/22 Mark Montiel MD [address] [place] [address] Consulting Physician Neurology 01/15/23 documented as of this encounter
--- OUTSIDE RECORDS SUMMARY | 2024-10-15 10:55 | XMS_ITS | Data Portability ---
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 discontinue omeprazole start Pepcid all questions answered with who was present [email or web address] Not available 11/12/2023 23:07:03 03/10/2024 03/10/2024 I did discuss with her the action of donepezil that it is not supposed to cure anything it is just too post a slow progression of his dementia we will continue with all the other medications diagnosis and management of the AFib hyperlipidemia BPH have been discussed follow up in 4 months Not available 03/12/2024 18:40:48 07/14/2024 07/14/2024 We will continue current therapy medications we will continue follow up 4 months [email or web address] Not available 07/16/2024 21:13:12 08/25/2024 08/25/2024 GERD omeprazole AFib remains anticoagulated on Eliquis orthostatic hypotension midodrine dyslipidemia rosuvastatin we have held the Flomax because of the orthostasis I will see him back November 16 Not available 08/27/2024 21:13:42 Plan of Treatment Reminders Order Date Submit Date Provider Last Modified By Organization Details Last Modified Time Details Appointments ANY 2024 10:15A Camden Yoon MD Not available Not available Not available ANY 2024 10:45A Camden Yoon MD Not available Not available Not available Lab CBC w/ auto diff 2023 024 [facility], [address], [address], [place], [address], 03/16/2024 07:41:45 CMP, serum or plasma 2023 024 [facility], [address], [address], [place], [address], 03/16/2024 07:41:44 lipid panel, serum 2023 024 [facility], [address], [address], [place], [address], 03/16/2024 07:41:43 CBC w/ auto diff 2023 024 [email or web address] [facility], [address], [address], [place], [address], 12/01/2023 12:49:41 CMP, serum or plasma 2023 024 [facility], [address], [address], [place], [address], 11/25/2023 17:05:33 lipid panel, serum 2023 024 [email or web address] [facility], [address], [address], [place], [address], 12/01/2023 12:49:28 CBC w/ auto diff 2023 024 [facility], [address], [address], [place], [address], 10/22/2023 12:08:04 lipid panel, serum 2023 024 [facility], [address], [address], [place], [address], 07/27/2023 20:37:32 CMP, serum or plasma 2023 024 [facility], [address], [address], [place], [address], 10/22/2023 12:08:05 Referral urologist referral 2023 024 brando Bonilla MD, [address], [address], [place], [address], 10/22/2023 12:06:54 Procedures None recorded. Surgeries None recorded. Imaging None recorded. Medication Orders midodrine 2.5 mg tablet [address] [id number], [address], [place], [place], [id number], 08/25/2024 12:36:45 Eliquis 5 mg tablet 2023 024 [email or web address], [address] [place] [address], [id number], 03/10/2024 13:11:37 tamsulosi n 0.4 mg capsule 2023 024 [email or web address], [address] [place] [address], [id number], 03/10/2024 13:11:37 rosuvasta tin 20 mg tablet 2023 024 [email or web address], [address] [place] [address], [id number], 03/10/2024 13:11:37 Pepcid 20 mg tablet 2023 024 [email or web address] [facility] #63874, [address] [place] [address], [id number], 02/18/2024 15:18:59 Eliquis 5 mg tablet 2023 024 [email or web address] [facility] #50751, [address] [place] [address], [id number], 11/12/2023 17:55:15 rosuvasta tin 20 mg tablet 2023 024 [email or web address] [facility] #[id number], [address] [facility] [address] [place] [address], [id number], 11/12/2023 17:55:15 Patient TargetsNo targets recorded. Patient Instructions Encounter Date Encounter Id Patient Instructions Last Modified By Organization Details Last Modified Time 07/14/2024 [id number] A healthy lifestyle: care instructions [email or web address] Not available 07/14/2024 13:40:06 08/25/2024 [id number] A healthy lifestyle: care instructions Not available 08/25/2024 12:36:45 Reason for Referral Urologist Referral for Noctu fracisco Referring Physician: Evon Yoon, Internal Medicine, Encounter Date: 07/23/2023 Results Created Date Observation Date Name Description Value Unit Range Abnormal Flag Note LastModifiedBy Organization Detail LastModifiedTime 07/27/1907/27/2023 Compr ehens eliel metab olic 1999 panel [...] 1999 panel - Serum or Plasm a anion [...] 1999 panel - Serum or Plasm a globulin [...] neutrophils, absolute count neutr ophil s, absol [place] count Not Available Not Available 07/14/2024 10:53:47 07/27/19 24 07/27/2023 CBC W Auto Diffe renti al panel - Blood lymphocytes, absolute count lymph ocyte s, absol [place] count Not Available Not Available 07/14/2024 10:53:47 07/27/19 24 07/27/2023 CBC W Auto Diffe renti al panel - Blood monocytes, absolute count high monoc ytes, absol [place] count Not Available Not Available 07/14/2024 10:53:47 07/27/19 24 07/27/2023 CBC W Auto Diffe renti al panel - Blood eosinophils, absolute count eosin ophil s, absol [place] count Not Available Not Available 07/14/2024 10:53:47 07/27/19 24 07/27/2023 CBC W Auto Diffe renti al panel - Blood basophils, absolute count basop hils, absol [place] count Not Available Not Available 07/14/2024 10:53:47 [...] Available 07/14/2024 10:53:47 11/25/19 24 11/25/2023 Lipid 1996 [...] 1999 panel - Serum or Plasm a globulin [...] neutrophils, absolute count neutr ophil s, absol [place] count Not Available Not Available 07/14/2024 10:53:47 11/25/19 24 11/25/2023 CBC W Auto Diffe renti al panel - Blood lymphocytes, absolute count lymph ocyte s, absol [place] count Not Available Not Available 07/14/2024 10:53:47 11/25/19 24 11/25/2023 CBC W Auto Diffe renti al panel - Blood monocytes, absolute count monoc ytes, absol [place] count Not Available Not Available 07/14/2024 10:53:47 11/25/19 24 11/25/2023 CBC W Auto Diffe renti al panel - Blood eosinophils, absolute count eosin ophil s, absol [place] count Not Available Not Available 07/14/2024 10:53:47 11/25/19 24 11/25/2023 CBC W Auto Diffe renti al panel - Blood basophils, absolute count basop hils, absol [place] count Not Available Not Available 07/14/2024 10:53:47 [...] 143 mg/dL 100-19 9 Not Available [facility] ([facility]) [address] [place], [address], 03/16/2024 07:41:43 03/15/20 24 03/16/2024 LIPID PANEL triglyceride s 188 mg/dL 0-149 above high normal Not Available [facility] ([facility]) [address] [place], [address], 03/16/2024 07:41:43 03/15/20 24 03/16/2024 LIPID PANEL HDL cholesterol 35 mg/dL >39 below low normal Not Available [facility] ([facility]) [address] [place], [address], 03/16/2024 07:41:43 03/15/20 24 03/16/2024 LIPID PANEL VLDL cholesterol simi 32 mg/dL 5-40 Not Available [facility] ([facility]) [address] [place], [address], 03/16/2024 07:41:43 03/15/20 24 03/16/2024 LIPID PANEL LDL chol calc ([facility]) 76 mg/dL 0-99 Not Available [facility] ([facility]) [address] [facility], [place], [address], 03/16/2024 07:41:43 03/15/20 24 03/16/2024 COMP. METAB OLIC PANEL (14) glucose 102 mg/dL 70-99 above high normal Not Available [facility] ([facility]) [address] [facility] [place], [address], 03/16/2024 07:41:44 03/15/20 24 03/16/2024 COMP. METAB OLIC PANEL (14) BUN 27 mg/dL 8-27 Not Available [facility] ([facility]) [address] [facility], [place], [address], 03/16/2024 07:41:44 03/15/20 24 03/16/2024 COMP. METAB OLIC PANEL (14) creatinine 1.28 mg/dL 0.76-1 .27 above high normal Not Available [facility] ([facility]) [address] [facility], [place], [address], 03/16/2024 07:41:44 03/15/20 24 03/16/2024 COMP. METAB OLIC PANEL (14) eGFR 55 mL/mi n/1.7 3 >59 below low normal Not Available [facility] ([facility]) [address] [place], [address], 03/16/2024 07:41:44 03/15/20 24 03/16/2024 COMP. METAB OLIC PANEL (14) BUN/creatini ne ratio 21 -24 Not Available [facility] ([facility]) [address] [place], [address], 03/16/2024 07:41:44 03/15/20 24 03/16/2024 COMP. METAB OLIC PANEL (14) sodium 143 mmol/ L 134-14 4 Not Available [facility] ([facility]) [address] [facility] [place], [address], 03/16/2024 07:41:44 03/15/20 24 03/16/2024 COMP. METAB OLIC PANEL (14) potassium 4.9 mmol/ L 3.5-5. 2 Not Available [facility] ([facility]) [address] [facility], [place], [address], 03/16/2024 07:41:44 03/15/20 24 03/16/2024 COMP. METAB OLIC PANEL (14) chloride 105 mmol/ L 96-106 Not Available [facility] ([facility]) [address] [facility], [place], [address], 03/16/2024 07:41:44 03/15/20 24 03/16/2024 COMP. METAB OLIC PANEL (14) carbon dioxide, total 23 mmol/ L 20-29 Not Available [facility] ([facility]) [address] [facility] [place], [address], 03/16/2024 07:41:44 03/15/20 24 03/16/2024 COMP. METAB OLIC PANEL (14) calcium 9.1 mg/dL 8.6-10 .2 Not Available [facility] ([facility]) [address] [facility] [place], [address], 03/16/2024 07:41:44 03/15/20 24 03/16/2024 COMP. METAB OLIC PANEL (14) protein, total 7.1 g/dL 6.0-8. 5 Not Available [facility] ([facility]) [address] [facility] [place], [address], 03/16/2024 07:41:44 03/15/20 24 03/16/2024 COMP. METAB OLIC PANEL (14) albumin 4.4 g/dL 3.7-4. 7 Not Available [facility] ([facility]) [address] [facility], [place], [address], 03/16/2024 07:41:44 03/15/20 24 03/16/2024 COMP. METAB OLIC PANEL (14) globulin, total 2.7 g/dL 1.5-4. 5 Not Available [facility] ([facility]) [address] [facility], [place], [address], 03/16/2024 07:41:44 03/15/20 24 03/16/2024 COMP. METAB OLIC PANEL (14) bilirubin, total 0.5 mg/dL 0.0-1. 2 Not Available [facility] ([facility]) [address] [facility], [place], [address], 03/16/2024 07:41:44 03/15/20 24 03/16/2024 COMP. METAB OLIC PANEL (14) alkaline phosphatase 95 IU/L 44-121 Not Available [facility] ([facility]) [address] [facility], [place], [address], 03/16/2024 07:41:44 03/15/20 24 03/16/2024 COMP. METAB OLIC PANEL (14) AST (SGOT) 19 IU/L 0-40 Not Available [facility] ([facility]) [address] [facility], [place], [address], 03/16/2024 07:41:44 03/15/20 24 03/16/2024 COMP. METAB OLIC PANEL (14) ALT (SGPT) 14 IU/L 0-44 Not Available [facility] ([facility]) [address] [place], [address], 03/16/2024 07:41:44 03/15/20 24 03/16/2024 CBC WITH DIFFE RENTI AL/PL ATELE T WBC 11.6 x10e3 /uL 3.4-10 .8 above high normal Not Available [facility] ([facility]) [address] [facility], [place], [address], 03/16/2024 07:41:45 03/15/20 24 03/16/2024 CBC WITH DIFFE RENTI AL/PL ATELE T RBC 4.18 x10e6 /uL 4.14-5 .80 Not Available [facility] ([facility]) [address] [facility], [place], [address], 03/16/2024 07:41:45 03/15/20 24 03/16/2024 CBC WITH DIFFE RENTI AL/PL ATELE T hemoglobin 14.1 g/dL 13.0-1 7.7 Not Available [facility] ([facility]) [address] [facility], [place], [address], 03/16/2024 07:41:45 03/15/20 24 03/16/2024 CBC WITH DIFFE RENTI AL/PL ATELE T hematocrit 42.7 % 37.5-5 1.0 Not Available [facility] ([facility]) [address] [place], [address], 03/16/2024 07:41:45 03/15/20 24 03/16/2024 CBC WITH DIFFE RENTI AL/PL ATELE T MCV 102 fL 79-97 above high normal Not Available [facility] ([facility]) [address] [place], [address], 03/16/2024 07:41:45 03/15/20 24 03/16/2024 CBC WITH DIFFE RENTI AL/PL ATELE T MCH 33.7 pg 26.6-3 3.0 above high normal Not Available [facility] ([facility]) [address] [place], [address], 03/16/2024 07:41:45 03/15/20 24 03/16/2024 CBC WITH DIFFE RENTI AL/PL ATELE T MCHC 33.0 g/dL 31.5-3 5.7 Not Available [facility] ([facility]) [address] [facility], [place], [address], 03/16/2024 07:41:45 03/15/20 24 03/16/2024 CBC WITH DIFFE RENTI AL/PL ATELE T RDW 12.5 % 11.6-1 5.4 Not Available [facility] ([facility]) [address] [facility], [place], [address], 03/16/2024 07:41:45 03/15/20 24 03/16/2024 CBC WITH DIFFE RENTI AL/PL ATELE T platelets 285 x10e3 /uL 150-45 0 Not Available [facility] ([facility]) [address] [facility], [place], [address], 03/16/2024 07:41:45 03/15/20 24 03/16/2024 CBC WITH DIFFE RENTI AL/PL ATELE T neutrophils 70 % notest ab. Not Available [facility] ([facility]) [address] [facility], [place], [address], 03/16/2024 07:41:45 03/15/20 24 03/16/2024 CBC WITH DIFFE RENTI AL/PL ATELE T lymphs 14 % notest ab. Not Available [facility] ([facility]) [address] [facility], [place], [address], 03/16/2024 07:41:45 03/15/20 24 03/16/2024 CBC WITH DIFFE RENTI AL/PL ATELE T monocytes 11 % notest ab. Not Available [facility] ([facility]) [address] [place], [address], 03/16/2024 07:41:45 03/15/20 24 03/16/2024 CBC WITH DIFFE RENTI AL/PL ATELE T eos 3 % notest ab. Not Available [facility] ([facility]) [address] [facility], [place], [address], 03/16/2024 07:41:45 03/15/20 24 03/16/2024 CBC WITH DIFFE RENTI AL/PL ATELE T basos 1 % notest ab. Not Available [facility] ([facility]) [address] [facility], [place], [address], 03/16/2024 07:41:45 03/15/20 24 03/16/2024 CBC WITH DIFFE RENTI AL/PL ATELE T neutrophils (absolute) 8.3 x10e3 /uL 1.4-7. 0 above high normal Not Available [facility] ([facility]) [address] [facility], [place], [address], 03/16/2024 07:41:45 03/15/20 24 03/16/2024 CBC WITH DIFFE RENTI AL/PL ATELE T lymphs (absolute) 1.6 x10e3 /uL 0.7-3. 1 Not Available [facility] ([facility]) [address] [place], [address], 03/16/2024 07:41:45 03/15/20 24 03/16/2024 CBC WITH DIFFE RENTI AL/PL ATELE T monocytes(ab solute) 1.2 x10e3 /uL 0.1-0. 9 above high normal Not Available [facility] ([facility]) [address] [place], [address], 03/16/2024 07:41:45 03/15/20 24 03/16/2024 CBC WITH DIFFE RENTI AL/PL ATELE T eos (absolute) 0.4 x10e3 /uL 0.0-0. 4 Not Available [facility] ([facility]) [address] [place], [address], 03/16/2024 07:41:45 03/15/20 24 03/16/2024 CBC WITH DIFFE RENTI AL/PL ATELE T baso (absolute) 0.1 x10e3 /uL 0.0-0. 2 Not Available [facility] ([facility]) [address] [facility], [place], [address], 03/16/2024 07:41:45 03/15/20 24 03/16/2024 CBC WITH DIFFE RENTI AL/PL ATELE T immature granulocytes 1 % notest ab. Not Available [facility] ([facility]) [address] [facility], [place], [address], 03/16/2024 07:41:45 03/15/20 24 03/16/2024 CBC WITH DIFFE RENTI AL/PL ATELE T immature grans (abs) 0.1 x10e3 /uL 0.0-0. 1 Not Available [facility] ([facility]) [address] [facility], [place], [address], 03/16/2024 07:41:45 04/19/19 25 04/19/2024 CT, brain , w/o contr ast No observ ation record ed. [address] [facility], [place], [address], 04/20/2024 09:17:17 04/19/19 25 04/19/2024 CT, cervi simi spine , w/o contr ast No observ ation record ed. [address] [facility], [place], [address], 04/20/2024 09:16:36 04/19/1904/19/2024 CT, chest + abdom en + pelvi s, w/ contr ast No observ ation record ed. [address], [place], [address], 04/20/2024 09:15:52 07/27/19 25 07/26/2024 CT, brain , w/o contr ast No observ ation record ed. [address], [place], [address], 07/26/2024 13:45:13 07/27/19 25 07/26/2024 XR, chest , 2 view No observ ation record ed. [address], [place], [address], 07/26/2024 13:45:49 07/27/19 25 07/26/2024 CT, cervi simi spine , w/o contr ast No observ ation record ed. [address], [place], [address], 07/26/2024 13:46:16 07/27/19 25 07/26/2024 XR, pelvi s, 1 or 2 view No observ ation record ed. [address], [place], [address], 07/26/2024 13:46:51 07/27/19 25 07/26/2024 CT, abdom en + pelvi s, w/o contr ast No observ ation record ed. [address], [place], [address], 07/26/2024 13:47:10 07/29/19 25 07/28/2024 US, duple x, carot id arter y No observ ation record ed. [address], [place], [address], 07/29/2024 10:57:53 07/29/19 25 07/28/2024 stres s echoc ardio gram with doppl er color flow (PROC ) No observ ation record ed. [address], [place], [address], 07/29/2024 10:59:22 08/06/19 25 08/05/2024 XR, chest No observ ation record ed. [address], [place], [address], 08/16/2024 22:41:07 08/24/19 25 08/23/2024 CT, brain , w/o contr ast No observ ation record ed. [address], [place], [address], 08/24/2024 08:59:47 08/24/19 25 08/23/2024 CT, cervi simi spine , w/o contr ast No observ ation record ed. [address], [place], [address], 08/24/2024 09:00:04 08/24/19 25 08/23/2024 CT, thora cic spine , w/o contr ast No observ ation record ed. [address] [address], [place], [address], 08/24/2024 09:00:37 08/25/19 CT, lumba r spine , w/o contr ast No observ ation record ed. [address], [place], [address], 08/24/2024 09:00:37 Result Notes None recorded. Problems Name Problem SNOMED Code Status Onset Date Resolution Date Notes Provider Name and Address Organization Details Recorded Time Nocturia 839265910 Active 2023 Evon Yoon MD Attn: vJ cid,[address] [facility], [place], [address], [facility] 4 22:23:33 Hyperlipidemia 25756188 Active 2023 Evon Yoon MD Attn: Jv cid,2040 [facility], [place], [address], [facility] 4 22:23:34 Dementia 74847705 Active 2023 Evon Yoon MD Attn: Jv cid,2040 [facility], [place], [address], [facility] 4 22:24:02 Atrial fibrillation 05007999 Active 2023 Evon Yoon MD Attn: Jv cid,[address], [place], [address], [facility] 22:24:10 Problem Notes None recorded. Procedures Surgical History Date Name Laterality Status Provider Name and Address Organization Details Recorded Time Hernia Repair completed Trinidad Christensen MA [facility] 07/23/2023 11:26:38 Imaging Results None recorded. Procedure Notes None [...] deb 250 mg tablet TAKE 2 TABLETS (500 MG) BY ORAL ROUTE ONCE DAILY FOR 1 DAY THEN 1 TABLET (250 MG) BY ORAL ROUTE ONCE DAILY FOR 4 DAYS 07/14 completed Not Available Not Available Not [...] No t Available midodrine 2.5 mg tablet TAKE 1 TABLET BY MOUTH THREE TIMES DAILY active Not Available Not Available No t Available amoxicill in 875 mg-potass ium clavulana te 125 mg tablet TAKE 1 TABLET BY MOUTH EVERY 12 HOURS FOR 7 DAYS active Not Available Not Available No t Available rosuvasta tin 20 mg tablet Take [...] Updated DateTime 5 182.88 cm 23.5 kg/m2 01397.2 8 g 81 /min 100 % 100 % 114/74 mm[Hg] Kelly Wren MA [facility] 5 11:13:14 Date Recorded Body weight Body mass index (BMI) Body height Heart rate Body temperature Oxygen saturation Oxygen saturation in Arterial blood by Pulse oximetry Systolic And Diastolic Provider Name and Address Organization Details Last Updated DateTime 4 50586.8 g 25.6 kg/m2 182.88 cm 74 /min 98.2 [degF] 99 % 99 % 126/82 mm[Hg] Trinidad Christensen MA [facility] 4 11:31:57 Date Recorded Body height Body mass index (BMI) Body weight Heart rate Oxygen saturation Oxygen saturation in Arterial blood by Pulse oximetry Systolic And Diastolic Provider Name and Address Organization Details Last Updated DateTime 5 182.88 cm 21.8 kg/m2 30420.2 9 g 62 /min 99 % 99 % 122/68 mm[Hg] Shelley Sutherland MA [facility] 5 11:49:57 Date Recorded Body height Body mass index (BMI) Body weight Heart rate Oxygen saturation Oxygen saturation in Arterial blood by Pulse oximetry Systolic And Diastolic Provider Name and Address Organization Details Last Updated DateTime 4 182.88 cm 25.4 kg/m2 85326.9 2 g 70 /min 99 % 99 % 124/78 mm[Hg] Britt Whitman MA [facility] 4 15:24:26 Date Recorded Body height Body mass index (BMI) Body weight Heart rate Oxygen saturation Oxygen saturation in Arterial blood by Pulse oximetry Systolic And Diastolic Provider Name and Address Organization Details Last Updated DateTime 182.88 cm 25.1 kg/m2 59605.8 7 g 73 /min 98 % 98 % 126/62 mm[Hg] Shelley Sutherland [place] [facility] 11:09:16 Social History Question Answer Notes LastModified by Organizat ion Details LastModified Time Tobacco Smoking Status Former Smoker Trinidad Christensen MA null, [place] [facility] 07/23/2023 11:27:12 Do You Have An Advance [...] Date Of Your Most Recent Tobacco Screening? 08/25/2024 Information not available 08/25/2024 What Is Your Relationship Status? Information not [...] anxious, or unable to sleep at night)? [id number] Information not available 07/23/2023 Family History Relationship [...] Time Influenza, high-dose, quadrivalent, PF 01/06/2019 completed BRANDO [place], [place] - [facility] 03/10/2024 11:09:20 Influenza, high-dose, quadrivalent, PF 02/06/2022 completed [place] [facility] 03/10/2024 11:09:20 Influenza, high-dose, trivalent, PF 01/06/2018 completed [place] [facility] 03/10/2024 11:09:20 Influenza, high-dose, trivalent, PF 01/20/2016 completed Shelley [place] [facility] 03/10/2024 11:09:20 Influenza, high-dose, trivalent, PF 02/08/2013 completed Shelley [place] [facility] 03/10/2024 11:09:20 Influenza, high-dose, trivalent, PF 02/20/2017 completed Shelley [place] [facility] 03/10/2024 11:09:21 Influenza, split virus, trivalent, PF 02/15/2014 completed Shelley [place] [facility] 03/10/2024 11:09:21 Tdap 08/25/2024 completed BRANDO [place] [facility] 08/25/2024 12:21:05 Past Encounters Encounter ID Performer Location Encounter Start Date Encounter Closed Date Diagnosis/Indication Diagnosis SNOMED-CT Code Diagnosis ICD10 Code Diagnosis Note [id number] Evon Yoon MD [facility] [employer] [facility] [place] [address] [place] [address] 1 07/23/2023 11:02:26 07/23/2023 12:16:28 Nocturia 323058964 R35.1 Hyperlipidemia 02921719 E78.5 Long-term drug therapy 991321598 Z79.899 Dementia 70058564 F03.92 Atrial fibrillation 4943 6004 I48.91 [id number] Evon Yoon MD [facility] [employer] [facility] [place] [address] [place] [address] 11/12/2023 14:42:58 11/12/2023 16:25:31 Hyperlipidemia 49519590 E78.5 Long-term drug therapy 546909012 Z79.899 Atrial fibrillation 4943 6004 I48.91 Gastroesop hageal reflux disease without esophagitis 358638924 K21.9 Dementia 44759218 F03.92 [id number] Evon Yoon MD [facility] [employer] [facility] [place] [address] [place] [address] 03/10/2024 10:36:45 03/10/2024 12:01:04 Body mass index 25-29 - overweight 657573957 Z68.25 Hyperlipidemia 11095830 E78.5 Atrial fibrillation 4943 6004 I48.91 Renewal of prescription 239562227 Z76.0 Dementia 88248229 F03.92 [id number] Evon Yoon MD [facility] [employer] [facility] [place] [address] [place] [address] 07/14/2024 10:42:28 07/14/2024 11:55:30 Body mass index 20-24 - normal 400654103 Z68.23 Overweight 196525352 E66 .3 Hyperlipidemia 21636097 E78.5 Dementia 37043151 F03.92 Atrial fibrillation 4943 6004 I48.91 [id number] Evon Yoon MD [facility] [employer] [facility] [place] [address] [place] [address] 08/25/2024 11:23:01 08/25/2024 12:35:31 Body mass index 20-24 - normal 786386058 Z68.21 Overweight 584860642 E66 .3 Requires d iphtheria, tetanus and pertussis vaccination 596842524 Z23 Hyperlipidemia 97947232 E78.5 Orthostati c hypotension 94491411 I95.1 Atrial fibrillation 4943 6004 I48.91 Dementia 72670085 F03.92 Health Concerns Section Related Observation LastModified by Organization Detai ls LastModified Time None Recorded Concern Status LastModified by Organization Details LastModified Time None Recorded Advance Directives Directive Y: Payers Insurance Date Sequence Insurance Name Policy Number Policy Simpson Covered Member ID Simpson Member ID Guarantor Name 10/14/2024 1 [facility] (MEDICARE REPLACEMENT/A DVANTAGE - PPO) [id number] Petar Marquez [id number] Petar Marquez Notes Date Note Type Note Provider Name and Address Organization Details Recorded Time 4 text/html 82-year-old white male comes in with his he has a history of hyperlipidemia dementia GERD BPH atrial fibrillation and ongoing memory deterioration since he had COVID has had some hallucinations at times they are seeing the neurologist tomorrow he is also developed 4-5 times a night nocturia despite tamsulosin. Evon Yoon MD Attn: Accounting,[address] [facility], [place], [address], [facility] 07/23/2023 22:24:32 4 text/html 82-year-old white male comes in with his he has a history of hyperlipidemia dementia GERD BPH atrial fibrillation and ongoing memory deterioration since he had COVID has had some hallucinations at times they are seeing the neurologist tomorrow he is also developed 4-5 times a night nocturia despite tamsulosin. Evon Yoon MD Attn: Accounting,[address] [facility], [place], [address], [facility] 11/12/2023 23:07:23 4 text/html he is in with his there has not been any behavioral outbursts he is taking his medication for BPH and having no side effects we still have given him rosuvastatin he is trying to watch his diet best that he can omeprazole handling GERD issues. stopped donepezil states she does not see a difference Evon Yoon MD Attn: Accounting,[address] [facility], [place], [address], [facility] 03/12/2024 18:41:15 5 text/html Atrial fibrillation there has not been any chest pain or palpitations no heart failure symptoms. GERD has been doing fine taking the rosuvastatin watching diet for dyslipidemia his BPH has been stable there has been no behavioral disturbances the quit giving him did not [place] felt that he was having side effects from it Evon Yoon MD Attn: Accounting,[address] [facility], [place], [address], [place] [facility] 07/16/2024 21:13:37 5 text/html Ground level fall ER no fractures ear infection placed on antibioticsOrthostatic hypotension he is out of his midodrineTreated for pneumonia in the hospital no symptomsGERD stableDementia about the same Evon Yoon MD Attn: Accounting,[address] [facility], [place], [address], [facility] 08/27/2024 21:14:01
--- OUTSIDE RECORDS SUMMARY | 2024-10-15 10:55 | XMS_ITS | Encounter Summary ---
Author Organization [facility] Address [address] [place] [address] Phone Care Team Providers Care Methods Study Analyst Name Role Phone Nick Yoon MD Primary Care Provider [phone] Mark Montiel MD Unavailable [phone] Reason for Visit * Reason Comments Medication Refill Encounter Details Date Type Department Care Team (Late st Contact Info) Description 12/07/2022 Refill [facility] - Neurology [facility] [address] [place] [phone] Mark Montiel MD [address] [place] [phone] Medication Refill Social History Tobacco Use Types Packs/Day Years Used Date Smoking Tobacco: Never Smokeless Tobacco: Never Alcohol Use Standard Drinks/Week Comments Not Currently 0 (1 standard drink = 0.6 oz pur e alcohol) Sex and Gender Information Value Date Recorded Sex Assigned at Not on file 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 06/30[facility]22 Office Visit Mark Montiel MD [facility] Showing recent visits within past 182 days and meeting all other requirements Future Appointments Date Type Provider Dept 01/22/23 Appointment Mark Montiel MD [facility] Showing future appointments within next 90 days and meeting all other requirements Passed - Has an encounter in the past 6 months with a depression or anxiety visit diagnosis documented in this encounter Plan of Treatment Not on file documented as of this encounter Visit Diagnoses Not on filedocumented in this encounter Care Teams Methods Study Analyst Relationship Specialty Start Date End Date Nick Yoon MD PCP - General Internal Medicine 03/26/22 Mark Montiel MD [address] [place] [address] Consulting Physician Neurology 01/15/23 documented as of this encounter
--- NOTE | 2024-10-15 10:56 | ECG_ITS ---
Test Date: 2024-10-15 10:50:16 Measurements Intervals [place] Rate: 70 P: 0 VT: 0 QRS: -11 QRSD: 104 T: 5 QT: 411 QTc: 444 Interpretive Statements ATRIAL FIBRILLATION INCOMPLETE RIGHT BUNDLE BRANCH BLOCK [90+ ms QRS DURATION, TERMINAL R IN V1/V2, 40+ ms S IN I/aVL/V4/V5/V6] NONSPECIFIC ST AND T-WAVE ABNORMALITY. ARTIFACT LIMITS INTERPRETATION ABNORMAL ECG Electronically Signed On 10-15-2024 12:47:17 CDT by Naun Harrell M.D.
--- NOTE | 2024-10-15 11:10 | ED_ITS ---
HPI - General Adult General Chief complaint: Syncope Stated complaint: SYNCOPE History of Present Illness HPI narrative: This is an 84-year-old male with severe dementia presenting after a syncopal event at home. The patient himself does not know why he is here, or if he fell. He has no complaints at this time. EMS said that he syncopal event home. Patient had episode of diarrhea while in the exam room. Related Data Home Medications ?Medication ?Instructions ?Recorded ?Confirmed ?Last Taken ?Type omeprazole 20 mg capsule,delayed 20 mg PO HS 11/26/20 07/26/24 Unknown History release rosuvastatin 20 mg tablet 20 mg PO HS 11/26/20 07/26/24 Unknown History tamsulosin 0.4 mg capsule 0.4 mg PO HS 09/09/22 07/26/24 Unknown History multivitamin (Daily Multi-Vitamin 1 tablet PO DAILY 07/26/24 07/26/24 Unknown History tablet) Allergies Allergy/AdvReac Type Severity Reaction Status Date / Time adhesive tape Allergy Itching Verified 08/23/24 12:21 [facility] Past Medical History Medical History Atrial fibrillation Impacted cerumen of both ears Dementia Family History Family History Father Hypertension Sibling COPD (chronic obstructive pulmonary disease) Cancer Cerebrovascular accident Heart attack COVID Social History Social History Social History: Caffeine-coffee/soda Smoking status: Former smoker Tobacco type: cigarettes Alcohol intake: never Substance use: never Lack of Transportation: No Lack of Food: Never True Current Housing: I Have Housing Concerned About Future Housing: No Difficulty Paying Gas/Electric Bills: No Difficulty Paying for Meds: No Currently Unemployed: No Education: Trade/Vocational Certificate Difficulty w/ Childcare or Family Care: No Living arrangements: with family Occupation/Education: retired Gender identity (if verbalized by the patient): Male Spiritual care concerns: No Exam 2 Narrative: APPEARANCE: No apparent distress. A&O x1 Head: atraumatic. EYES: EOMI, NOSE: Atraumatic NECK/BACK: Trachea midline, no midline cervical tenderness, patient has a tender bony protrusion at lower thoracic upper lumbar region RESPIRATORY: No increased rate of breathing CTAB CARDIOVASCULAR: RRR, no peripheral edema ABDOMINAL: Non-distended soft nontender MUSCULOSKELETAl: Head to toe trauma exam performed with no areas of pain or injury NEURO: Alert. Moving 4/4 extremities to command SKIN:: Warm, dry. Normal color PSYCHIATRIC: Normal affect Course Vital Signs Vital signs: Vital Signs Temperature 97.7 F 10/15/24 10:38 Pulse Rate 82 10/15/24 10:38 Respiratory Rate 15 10/15/24 10:38 Blood Pressure 142/76 H 10/15/24 10:38 Pulse Oximetry 95 10/15/24 10:38 Oxygen Delivery Room Air 10/15/24 10:38 Temperature 97.7 F 10/15/24 10:38 Pulse Rate 70 10/15/24 12:57 Respiratory Rate 16 10/15/24 12:57 Blood Pressure 124/76 10/15/24 12:57 Pulse Oximetry 97 10/15/24 12:57 Oxygen Delivery Room Air 10/15/24 10:49 Medical Decision Making [facility] Narrative Medical decision making narrative: -Course: 84-year-old male presenting with a presyncopal event in the setting of several days of diarrhea. A broad workup was obtained as the patient comprised no useful information guide interview. Laboratory studies within normal limits. CT brain and C-spine without traumatic injury. CT chest abdomen pelvis showed diarrhea illness, a cyst of unknown etiology in his kidney a subacute L1 burst fracture with for 4mm retropulsion. Patient does not have any neurologic deficits or weakness to his legs. says this he has been having back pain in that region for approximately 2 months. Consult to neurosurgery placed. Urine not indicative infection. C diff is pending. Patient was given fluid resuscitation but given his advanced age and poor functional status she will be placed in observation for continued rehydration and PT OT eval. -DDX includes but is not limited to: Sepsis UTI dehydration C diff colitis pneumonia -Co-morbidities complicating care: Severe dementia -Social determinants of health: Patient lives at home with his who is also elderly and debilitated Vital Signs Vital Signs: Vital Signs Temperature 97.7 F 10/15/24 10:38 Pulse Rate 82 10/15/24 10:38 Respiratory Rate 15 10/15/24 10:38 Blood Pressure 142/76 H 10/15/24 10:38 Pulse Oximetry 95 10/15/24 10:38 Oxygen Delivery Room Air 10/15/24 10:38 Temperature 97.7 F 10/15/24 10:38 Pulse Rate 70 10/15/24 12:57 Respiratory Rate 16 10/15/24 12:57 Blood Pressure 124/76 10/15/24 12:57 Pulse Oximetry 97 10/15/24 12:57 Oxygen Delivery Room Air 10/15/24 10:49 Lab Data 10/15/24 11:22 10/15/24 11:22 Labs: Lab Results 10/15/24 10/15/24 Range/Units 11:22 12:52 WBC 9.8 (4.5-10.0) K/mm3 RBC 3.98 L (4.6-6.20) M/mm3 Hgb 12.9 L (14.0-18.0) g/dL Hct 40.6 L (42.0-52.0) % MCV 102.0 H (80-100) fl MCH 32.4 (26-34) pg MCHC 31.8 L (32-36) g/dl RDW 13.6 (11.5-14.5) % Plt Count 295 (150-375) k/mm3 MPV 9.7 (7.4-10.4) fl Immature Gran % (Auto) 0.4 (0-0.5) % Neut % (Auto) 79.4 H (45.5-73.1) % Lymph % (Auto) 9.5 L (18.3-44.2) % Hughes % (Auto) 7.9 (2.6-8.5) % Eos % (Auto) 2.5 (0-4.4) % Baso % (Auto) 0.3 (0.2-1.2) % Lymph # (Auto) 0.93 (0.9-3.2) K/mm3 Hughes # (Auto) 0.8 H (0.1-0.6) K/mm3 Eos # (Auto) 0.2 (0-0.3) K/mm3 Baso # (Auto) 0.0 (0.0-0.1) K/mm3 Abs Immat Gran (auto) 0.04 H (0.00-0.031) K/mm3 Absolute Neuts (auto) 7.8 H (1.3-6.7) K/mm3 Absolute Nucleated RBC 0.000 (0.0-0.012) K/mm3 Nucleated RBC % 0.0 (0.0-0.2) % PT 14.3 (11.1-14.7) Seconds INR 1.1 APTT 33.4 (22.3-36.8) Seconds Sodium 141 (137-145) mmol/L Potassium 3.5 (3.4-5.0) mmol/L Chloride 106 (98-107) mmol/L Carbon Dioxide 25 (22-30) mmol/L Anion Gap 10 (4-12) mmol/L BUN 26 H (9-20) mg/dL Creatinine 1.21 (0.7-1.3) mg/dL Estim Creat Clear Calc 40 ml/min Estimated GFR 57 L (59 - ) Glucose 102 (65-110) mg/dL Lactic Acid 1.5 (0.7-2.0) mmol/L Calcium 8.9 (8.4-10.2) mg/dL Phosphorus 3.2 (2.5-4.5) mg/dL Magnesium 2.4 H (1.6-2.3) mg/dL Total Bilirubin 0.6 (0.2-1.3) mg/dL AST 22 (17-59) U/L ALT 21 (6-50) U/L Alkaline Phosphatase 153 H (38-126) U/L Troponin I 0.016 (0.000-0.034) ng/mL NT-Pro-B Natriuret Pep 1240 H (19.9-100) pg/mL Total Protein 7.4 (6.3-8.2) g/dL Albumin 3.8 (3.5-5.1) g/dL Lipase 96 (23-300) U/L TSH (Reflex) 1.650 (0.465-4.68) uIU/mL Urine Color Yellow (Yellow) Urine Appearance Clear (Clear) Urine pH 6.0 (5.0-9.0) Ur Specific [place] 1.021 (1.001-1.035) Urine Protein Trace (Negative) mg/dL Urine Glucose (UA) Negative (Negative) mg/dL Urine Ketones Negative (Negative) mg/dL Ur Blood (Man) Negative (Negative) Urine Nitrate Negative (Negative) Urine Bilirubin Negative (Negative) Urine Urobilinogen 0.2 (<2.0) mg/dL Leukocyte Esterase Rfl Negative (Negative) VON/UL Urine RBC 0-2 (0-2) /hpf Urine WBC 0-5 (0-3) /hpf Ur Squamous Epith Cells None seen (Few) /hpf Urine Bacteria None seen /hpf Urine Casts 0-2 Urine Opiates Screen Negative (Negative) Urine Methadone Screen Negative (Negative) Ur Barbiturates Screen Negative (Negative) Ur Phencyclidine Scrn Negative (Negative) Ur Amphetamine Screen Negative (Negative) U Benzodiazepines Scrn Negative (Negative) Urine Cocaine Screen Negative (Negative) U Cannabinoids Screen Negative (Negative) Ethyl Alcohol < 10 (<10) mg/dL Influenza A (RT-PCR) Negative (Negative) Influenza B (RT-PCR) Negative (Negative) RSV (RT-PCR) Negative (Negative) SARS-CoV-2 RNA (RT-PCR) Negative (Negative) ABG Data ABG results: 10/15/24 11:22 VBG pH 7.407 H* VBG pCO2 39.1 L VBG pO2 29.1 L VBG HCO3 24.1 O2 Delivery Device Room air O2 Liters/Min Not Reportable FiO2 21 Discharge Plan Discharge Clinical Impression: Pre-syncope, Diarrhea, Burst fracture of lumbar vertebra Patient Disposition: Still a Patient Condition: Stable Patient Language: Romansh Prescriptions: No Action tamsulosin 0.4 mg capsule 0.4 mg PO HS omeprazole 20 mg capsule,delayed release(DR/EC) 20 mg PO HS rosuvastatin 20 mg tablet 20 mg PO HS Eliquis 5 mg Tablet 5 mg PO Q12HR 30 Days Qty: 60 0RF multivitamin [Daily Multi-Vitamin] Tablet 1 tablet PO DAILY midodrine 2.5 mg tablet 3 mg PO TID Qty: 120 0RF Rx Instructions: do not give last dose of day after 6PM or within 4 hrs of bedtime pyridostigmine bromide 30 mg tablet 30 mg PO TID Qty: 90 0RF amoxicillin-pot clavulanate 875-125 mg tablet 1 tablet PO Q12H 7 Days Qty: 14 0RF Follow-up/Referrals: Car,MD Nick [Primary Care Provider] -
[2024-10-15 11:24] LABS: Fractional Inspired Oxygen 21 %; HCO3 VBG 24.1 mEq/l (24.0-30.0); PCO2 VBG 39.1 mmHg (42.0-48.0); PO2 VBG 29.1 mmHg (35.0-45.0)
[2024-10-15 11:28] LABS: pH VBG 7.407 (7.300-7.400)
[2024-10-15 11:30] LABS: Hematocrit 40.6 % (42.0-52.0); Hemoglobin 12.9 g/dL (14.0-18.0); Immature Granulocyte Percent A 0.4 % (0-0.5); Lymphocytes Absolute Auto 0.93 K/mm3 (0.9-3.2); Mean Corpuscular HGB Conc 31.8 g/dl (32-36); Mean Corpuscular Hemoglobin 32.4 pg (26-34); Mean Corpuscular Volume 102.0 fl (80-100); Nucleated Red Blood Cells Absolute Auto 0.000 K/mm3 (0.0-0.012); Nucleated Red Blood Cells Perc 0.0 % (0.0-0.2); Platelet Count Result 295 k/mm3 (150-375); Red Blood Count 3.98 M/mm3 (4.6-6.20); White Blood Count 9.8 K/mm3 (4.5-10.0)
[2024-10-15 11:41] LABS: INR 1.1; Prothrombin Time 14.3 Seconds (11.1-14.7)
[2024-10-15 11:42] LABS: Partial Thromboplastin Time 33.4 Seconds (22.3-36.8)
[2024-10-15] MEDS: SODIUM CHLORIDE 0.9% IV 2,000 ML 999 ML IV CONT (11:45)
[2024-10-15 11:47] LABS: Alanine Aminotransferase 21 U/L (6-50); Albumin Level 3.8 g/dL (3.5-5.1); Alkaline Phosphatase 153 U/L (38-126); Anion Gap 10 mmol/L (4-12); Aspartate Amino Transferase 22 U/L (17-59); Bilirubin,Total 0.6 mg/dL (0.2-1.3); Blood Urea Nitrogen 26 mg/dL (9-20); Calcium 8.9 mg/dL (8.4-10.2); Carbon Dioxide 25 mmol/L (22-30); Chloride 106 mmol/L (98-107); Estimated CRCL calculation 40 ml/min; Estimated Glomerular Filt Rate 57; Glucose 102 mg/dL (65-110); Lipase 96 U/L (23-300); Magnesium 2.4 mg/dL (1.6-2.3); Potassium 3.5 mmol/L (3.4-5.0); Sodium 141 mmol/L (137-145); Total Protein 7.4 g/dL (6.3-8.2)
[2024-10-15 12:05] LABS: NT Pro B Type Natriuretic Pept 1240 pg/mL (19.9-100); Troponin I 0.016 ng/mL (0.000-0.034)
[2024-10-15 12:06] LABS: Influenza A QL RT-PCR Negative (Negative); Influenza B QL RT-PCR Negative (Negative); RSV RNA, RT-PCR Negative (Negative); SARS-CoV-2 RNA PCR Negative (Negative)
[2024-10-15 12:23] LABS: Thyroid Stimulating Hormone Reflex 1.650 uIU/mL (0.465-4.68)
[2024-10-15 13:06] LABS: Add Urine Microscopic? YES; Appearance Urine Clear (Clear); Glucose Urine UA Negative (Negative); Leukocyte Esterase Ur Negative LEU/UL (Negative); Nitrate Urine Negative (Negative); Non Pathogenic Casts 0-2; Specific Grav Ur 1.021 (1.001-1.035)
[2024-10-15 13:18] LABS: Cannabinoid Screen Urine Negative (Negative)
--- NOTE | 2024-10-15 14:03 | ECG_ITS ---
Test Date: 2024-10-15 14:11:58 Measurements Intervals [place] Rate: 67 P: 0 ID: 0 QRS: 87 QRSD: 101 T: 102 QT: 409 QTc: 432 Interpretive Statements ATRIAL FIBRILLATION INCOMPLETE RIGHT BUNDLE BRANCH BLOCK [90+ ms QRS DURATION, TERMINAL R IN V1/V2, 40+ ms S IN I/aVL/V4/V5/V6] NONSPECIFIC ST & T-WAVE ABNORMALITY ARTIFACT LIMITS INTERPRETATION ABNORMAL RHYTHM ECG Compared to ECG 10/15/2024 10:50:16 No significant changes Electronically Signed On 10-15-2024 16:02:56 CDT by Naun Harrell M.D.
[2024-10-15 14:42] LABS: Troponin I 0.039 ng/mL (0.000-0.034)
--- NOTE | 2024-10-15 14:48 | PC.NURSE ---
Meal tray ordered for pt to be delivered to admit room
--- NOTE | 2024-10-15 14:55 | P.HP_ITS ---
H&P: HPI History of Present Illness Date/Time: 10/15/24 14:55 Chief Complaint: Diarrhea Narrative: 84-year-old male Atrial fibrillation, and dementia presents the hospital with acute diarrhea. HPI gathered through chart as patient has dementia. EMS states the patient has syncopal fall at home. Patient does not know what happened. HPI is extremely limited. Lab work in the ED shows anemia at 12.9, troponin 0.016 followed by 0.039, proBNP of 1240, toxicology screen negative, ethanol level negative, influenza A/B, RSV, COVID negative. Chest x-ray shows calcified plaques from asbestos exposure. Head CT shows no acute process. Head CT spine shows no acute process. CT chest abdomen pelvis show Subacute L1 burst fracture. Fluid-filled colon. Indeterminate 1 cm high attenuation right renal lesion statistically most likely to represent a proteinaceous/hemorrhagic cyst although renal cell carcinoma could not be excluded and would recommend follow-up pre and postcontrast MRI or CT. Patient is being admitted to the hospital for dehydration, diarrhea and low back pain. Patient was later transferred to IMU for positive troponins and heparin drip with a Cardiology consult. Patient denies chest pain Review of Systems Review of Systems: ROS unobtainable: Yes unobtainable due to mental status PMFSH Past Medical History Medical History Atrial fibrillation Impacted cerumen of both ears Dementia Family History Family History Father Hypertension Sibling COPD (chronic obstructive pulmonary disease) Cancer Cerebrovascular accident Heart attack COVID Social History Social History Social History: Caffeine-coffee/soda Smoking status: Former smoker Second hand tobacco smoke exposure: No Alcohol intake: never Substance use: never Lack of Transportation: No Lack of Food: Never True Current Housing: I Have Housing Concerned About Future Housing: No Difficulty Paying Gas/Electric Bills: No Difficulty Paying for Meds: No Currently Unemployed: No Education: Trade/Vocational Certificate Difficulty w/ Childcare or Family Care: No Living arrangements: with family Occupation/Education: retired Gender identity (if verbalized by the patient): Male Spiritual care concerns: No Meds Home Medications and Allergies Home Medications ?Medication ?Instructions ?Recorded ?Confirmed ?Type omeprazole 20 mg capsule,delayed 20 mg PO HS 11/26/20 10/15/24 History release rosuvastatin 20 mg tablet 20 mg PO HS 11/26/20 10/15/24 History apixaban 5 mg tablet (Eliquis) 5 mg PO Q12HR 30 days #60 tabs 12/12/20 10/15/24 Rx tamsulosin 0.4 mg capsule 0.4 mg PO HS 09/09/22 10/15/24 History multivitamin (Daily Multi-Vitamin 1 tablet PO DAILY 07/26/24 10/15/24 History tablet) midodrine 2.5 mg tablet 2.5 mg PO TID 10/15/24 10/15/24 History Allergies Allergy/AdvReac Type Severity Reaction Status Date / Time adhesive tape Allergy Itching Verified 10/15/24 14:06 Vital Signs Vital Signs - 24 hr 10/15/24 10:38 10/15/24 10:49 10/15/24 10:49 Temperature 97.7 F Pulse Rate 82 90 Respiratory Rate 15 Blood Pressure 142/76 H Pulse Oximetry 95 100 Oxygen Delivery Room Air Room Air 10/15/24 11:29 10/15/24 11:36 10/15/24 11:36 Temperature Pulse Rate 73 73 Respiratory Rate 17 Blood Pressure 140/77 152/81 H 140/77 Pulse Oximetry 100 Oxygen Delivery 10/15/24 11:36 10/15/24 11:49 10/15/24 12:57 Temperature Pulse Rate 82 80 70 Respiratory Rate 22 H 16 Blood Pressure 124/50 L 129/74 124/76 Pulse Oximetry 98 97 Oxygen Delivery 10/15/24 14:04 10/15/24 14:46 Temperature 97.5 F L Pulse Rate 79 63 Respiratory Rate 18 19 Blood Pressure 146/79 H 114/79 Pulse Oximetry 97 97 Oxygen Delivery Exam Narrative: General: Ill-looking pale HEENT: normocephalic, atraumatic. Mucous membranes moist. EOMI, PERRLA, bilateral sclera anicteric, no conjunctival injection. Neck supple without JVD, lymphadenopathy, or bruit. Respiratory: clear to ascultation bilaterally. No rales/rhonic/wheezes. Cardiovascular: Regular rate and rhythm, normal S1-S2 upon ascultation. No murmurs, rubs, or clicks. PMI is nondisplaced, capillary refill less than 3 second. Abdomen: Soft, round, no pulsatile masses, nondistended and nontender. No rebound, no guarding. No CVA tenderness, no hepatosplenomegaly. Bowel sounds present to all four quadrants. No high pitch or tinkling sounds, resonant to percussion. Extremities: No cyanosis, clubbing, or edema present. Pulses are palpable 2/2. Active ROM to all four extremities. Neuro: Alert and orientated x 1. PERRLA. Cranial nerves 2-12 intact without focal deficit. Skin: Warm, dry, and intact, without rash, erythema, or lesion. Psych: pleasant, cooperative, normal speech, normal affect, no hallucinations, no dysarthia H&P: Results Labs Labs: Short CBC 10/15/24 Range/Units 11:22 WBC 9.8 (4.5-10.0) K/mm3 Hgb 12.9 L (14.0-18.0) g/dL Hct 40.6 L (42.0-52.0) % Plt Count 295 (150-375) k/mm3 BMP 10/15/24 11:22 Sodium 141 Potassium 3.5 Chloride 106 Carbon Dioxide 25 BUN 26 H Creatinine 1.21 Glucose 102 Calcium 8.9 Cardiac Enzymes 10/15/24 10/15/24 Range/Units 11:22 14:11 Troponin I 0.016 0.039 H* D (0.000-0.034) ng/mL Liver Function 10/15/24 Range/Units 11:22 Total Bilirubin 0.6 (0.2-1.3) mg/dL AST 22 (17-59) U/L ALT 21 (6-50) U/L Alkaline Phosphatase 153 H (38-126) U/L Albumin 3.8 (3.5-5.1) g/dL Urine 10/15/24 Range/Units 12:52 Urine Color Yellow (Yellow) Urine Appearance Clear (Clear) Urine pH 6.0 (5.0-9.0) Ur Specific [place] 1.021 (1.001-1.035) Urine Protein Trace (Negative) mg/dL Urine Glucose (UA) Negative (Negative) mg/dL Assessment and Plan Assessment and plan (1) Elevated troponin: Code(s): R79.89 - Other specified abnormal findings of blood chemistry Status: Acute Assessment and Plan: Patient denies chest pain however is demented Trend troponin with EKG use Aspirin Transferred to IMU Heparin drip Cardiology consult pending (2) Diarrhea: Code(s): R19.7 - Diarrhea, unspecified Status: Acute Assessment and Plan: C diff pending IV fluids for hydration (3) Chronic kidney disease: Code(s): N18.9 - Chronic kidney disease, unspecified Status: Acute Assessment and Plan: BMP in the morning (4) Burst fracture of lumbar vertebra: Code(s): S32.001A - Stable burst fracture of unspecified lumbar vertebra, initial encounter for closed fracture Status: Acute Assessment and Plan: Neurosurgery consult Bed rest (5) Generalized weakness: Code(s): R53.1 - Weakness Status: Acute Assessment and Plan: Dehydration versus frailty verses HI (6) Hypertension: Code(s): I10 - Essential (primary) hypertension Status: Acute Assessment and Plan: Continue home midodrine Patient is not on antihypertensive medications Quality VTE Prophylaxis VTE prophylaxis: mechanical ordered If No VTE Prophylaxis Answer both mechanical and pharmacologic: Reason no pharmacologic proph: medical contraindication Hospitalist MIPS Advance Care Plan I have confirmed that the patient's Advanced Care Plan is present, code status is documented, or surrogate decision maker is listed in patient medical record.: Yes Medication Reconciliation I have utilized all available resources to obtain, update and review the patients current medications (includes all prescriptions, OTC, herbals, cannabis, and nutritional supplements).: Yes
--- NOTE | 2024-10-15 16:23 | ECG_ITS ---
Test Date: 2024-10-15 16:47:36 Measurements Intervals [place] Rate: 66 P: 68 TX: 186 QRS: 8 QRSD: 114 T: 50 QT: 422 QTc: 445 Interpretive Statements SINUS RHYTHM INCOMPLETE RIGHT BUNDLE BRANCH BLOCK [90+ ms QRS DURATION, TERMINAL R IN V1/V2, 40+ ms S IN I/aVL/V4/V5/V6] NONSPECIFIC ST AND T-WAVE ABNORMALITY ABNORMAL ECG Electronically Signed On 10-16-2024 11:32:19 CDT by Naun Harrell M.D.
[2024-10-15 17:42] LABS: Troponin I 0.076 ng/mL (0.000-0.034)
--- NOTE | 2024-10-15 17:46 | ECG_ITS ---
Test Date: 2024-10-15 18:03:05 Measurements Intervals [place] Rate: 74 P: 56 CT: 164 QRS: -1 QRSD: 106 T: -12 QT: 404 QTc: 448 Interpretive Statements SINUS RHYTHM INCOMPLETE RIGHT BUNDLE BRANCH BLOCK [90+ ms QRS DURATION, TERMINAL R IN V1/V2, 40+ ms S IN I/aVL/V4/V5/V6] NONSPECIFIC ST AND T-WAVE ABNORMALITY. ABNORMAL ECG Electronically Signed On 10-16-2024 11:33:15 CDT by Naun Harrell M.D.
[2024-10-15] MEDS: SODIUM CHLORIDE 0.9% IV 1,000 ML 100 ML IV CONT (18:08)
[2024-10-15] MEDS: DOCUSATE SODIUM 100 MG CAPSULE PO (18:09)
[2024-10-15] MEDS: ASPIRIN 81 MG CHEWABLE TABLET 324 MG PO (18:09)
[2024-10-15] MEDS: MIDODRINE HCL 2.5 MG TABLET PO (18:15)
[2024-10-15 18:28] LABS: INR 1.1; Prothrombin Time 14.2 Seconds (11.1-14.7)
[2024-10-15 18:29] LABS: Partial Thromboplastin Time 33.6 Seconds (22.3-36.8)
[2024-10-15] MEDS: HEPARIN SOD/D5W 100 UNITS/ML 25,000 UNITS/250 ML BAG 9 UNITS IV CONT (18:46)
--- NOTE | 2024-10-15 19:01 | ADMGEN ---
This patient, Petar Marquez, was admitted to Medical Room [facility]- at 1450. Patient/family oriented to hospital policies and general routines including ID bracelet, bed and alarms, visiting hours, pain management, procedures, bathroom and other care routines, personal items, smoking policy, room service/diet, and visiting hours. Information on how to activate the Rapid Response Team has been discussed. Patient/Family are encouraged to report perceived risks to care and to ask questions if they do not understand what they are told or what they should do.
--- NOTE | 2024-10-15 19:01 | PC.NURSE ---
1742: critical test result received from lab: Troponin 0.076. Jane Camp APRN notified. Orders received for heparin drip, and patient to be transferred to IMU for closer monitoring.
[2024-10-16] VITALS (16 sets, daily range): BP systolic 142–180; BP diastolic 59–92; PULSE 56–81; RESP 14–18; TEMP 36.4–36.6; O2SAT 90–100
[2024-10-16 01:41] LABS: Partial Thromboplastin Time 60.0 Seconds (22.3-36.8)
[2024-10-16 04:59] LABS: Hematocrit 33.0 % (42.0-52.0); Hemoglobin 10.5 g/dL (14.0-18.0); Immature Granulocyte Percent A 0.3 % (0-0.5); Lymphocytes Absolute Auto 1.74 K/mm3 (0.9-3.2); Mean Corpuscular HGB Conc 31.8 g/dl (32-36); Mean Corpuscular Hemoglobin 32.7 pg (26-34); Mean Corpuscular Volume 102.8 fl (80-100); Nucleated Red Blood Cells Absolute Auto 0.000 K/mm3 (0.0-0.012); Nucleated Red Blood Cells Perc 0.0 % (0.0-0.2); Platelet Count Result 236 k/mm3 (150-375); Red Blood Count 3.21 M/mm3 (4.6-6.20); White Blood Count 8.9 K/mm3 (4.5-10.0)
[2024-10-16 05:26] LABS: Anion Gap 5 mmol/L (4-12); Blood Urea Nitrogen 18 mg/dL (9-20); Calcium 8.5 mg/dL (8.4-10.2); Carbon Dioxide 25 mmol/L (22-30); Chloride 110 mmol/L (98-107); Cholesterol 183 mg/dL (0-200); Estimated CRCL calculation 46 ml/min; Estimated Glomerular Filt Rate > 60; Glucose 86 mg/dL (65-110); HDL Direct 31 mg/dL; Potassium 3.6 mmol/L (3.4-5.0); Sodium 140 mmol/L (137-145); Triglycerides 104 mg/dL (<150)
[2024-10-16] MEDS: SODIUM CHLORIDE 0.9% IV 1,000 ML 100 ML IV CONT ×2 (07:28→17:24)
--- NOTE | 2024-10-16 07:36 | PC.NURSE ---
This patient, Petar Marquez, was received from [facility] on 10/15/24 at 1999. Patient/family oriented to unit policies and routines
[2024-10-16] MEDS: DOCUSATE SODIUM 100 MG CAPSULE PO (09:12)
[2024-10-16] MEDS: MIDODRINE HCL 2.5 MG TABLET PO (09:12)
[2024-10-16 09:32] LABS: Magnesium 2.2 mg/dL (1.6-2.3)
[2024-10-16 09:38] LABS: Partial Thromboplastin Time 133.9 Seconds (22.3-36.8)
[2024-10-16 09:51] LABS: Troponin I 0.114 ng/mL (0.000-0.034)
--- NOTE | 2024-10-16 11:10 | P.CONCA_ITS ---
Assessment and Plan Assessment and plan (1) Elevated troponin: Code(s): R79.89 - Other specified abnormal findings of blood chemistry Status: Acute Assessment and Plan: Troponins minimally elevated. May represent a small non-STEMI but given advanced dementia, medical management is appropriate even if related to CAD. Other possibilities include related to his fall, renal failure. Will discontinue heparin. Continue Eliquis or aspirin. Continue rosuvastatin. (2) Hypertension: Code(s): I10 - Essential (primary) hypertension Status: Acute Assessment and Plan: Permissive hypertension will be allowed (3) Orthostatic hypotension: Code(s): I95.1 - Orthostatic hypotension Status: Acute Assessment and Plan: On midodrine. Will check orthostatic BP (4) Atrial fibrillation and flutter: Code(s): I48.91 - Unspecified atrial fibrillation; I48.92 - Unspecified atrial flutter Status: Acute Assessment and Plan: Had been on Eliquis but also this is of some concern given his fall history and orthostatic hypotension.. If still found to be significantly orthostatic, I would be hesitant to continue Eliquis but obviously this is a discussion that would need to be made and agreed upon with his family (5) Dementia: Code(s): F03.90 - Unspecified dementia, unspecified severity, without behavioral disturbance, psychotic disturbance, mood disturbance, and anxiety Status: Acute Assessment and Plan: Significant History of Present Illness History of Present Illness Consult date/time: 10/16/24 11:10 Requesting physician: Jane Camp APRN Consult reason: Other (elevated troponin) Reason For Visit: Diarrhea Narrative: Date of service 10/16/2024 Requesting provider: Jane Camp Reason consultation: Elevated troponins History patient is an 84-year-old male who came to the hospital with diarrhea. Also supposedly had a syncopal episode at home. Patient states that he hurt all over. Troponins ordered for unknown reasons which were minimally elevated. History is limited due to patient's severe dementia. Currently denies any chest pain. No shortness of breath, paroxysmal nocturnal dyspnea orthopnea. EKG shows no significant acute ST or T-wave abnormalities. Patient admitted for dehydration diarrhea and back pain Review of Systems 2 Review of Systems: All systems reviewed & are unremarkable except as noted in HPI and below Constitutional: Constitutional: Reports body ache(s) Eyes: Eyes: Denies blurry vision ENT: Reports Normal hearing present Cardiovascular: Cardiovascular: Denies palpitations Respiratory: Respiratory: Denies hemoptysis Gastrointestinal: Gastrointestinal: Denies melena Genitourinary: Genitourinary: Denies hematuria Musculoskeletal: Musculoskeletal: Denies myalgias Integumentary/Breasts: Skin/Breast: Denies unusual bruising Neurologic: Denies Abnormal speech present Psychiatric: Psychiatric: Reports confusion Endocrine: Endocrine: Denies excessive sweating Hematologic/Lymphatic: Hematologic/Lymphatic: Denies easy bleeding Allergic/Immunologic: Allergic/Immunologic: Denies GI upset with certain foods PMFSH Past Medical History Medical History Atrial fibrillation Impacted cerumen of both ears Dementia Family History Family History Father Hypertension Sibling COPD (chronic obstructive pulmonary disease) Cancer Cerebrovascular accident Heart attack COVID Social History Social History Social History: Caffeine-coffee/soda Smoking status: Former smoker Second hand tobacco smoke exposure: No Alcohol intake: never Substance use: never Lack of Transportation: No Lack of Food: Never True Current Housing: I Have Housing Concerned About Future Housing: No Difficulty Paying Gas/Electric Bills: No Difficulty Paying for Meds: No Currently Unemployed: No Education: Trade/Vocational Certificate Difficulty w/ Childcare or Family Care: No Living arrangements: with family Occupation/Education: retired Gender identity (if verbalized by the patient): Male Spiritual care concerns: No Meds Home Medications and Allergies Home Medications ?Medication ?Instructions ?Recorded ?Confirmed ?Type omeprazole 20 mg capsule,delayed 20 mg PO HS 11/26/20 10/15/24 History release rosuvastatin 20 mg tablet 20 mg PO HS 11/26/20 10/15/24 History apixaban 5 mg tablet (Eliquis) 5 mg PO Q12HR 30 days #60 tabs 12/12/20 10/15/24 Rx tamsulosin 0.4 mg capsule 0.4 mg PO HS 09/09/22 10/15/24 History multivitamin (Daily Multi-Vitamin 1 tablet PO DAILY 07/26/24 10/15/24 History tablet) midodrine 2.5 mg tablet 2.5 mg PO TID 10/15/24 10/15/24 History Allergies Allergy/AdvReac Type Severity Reaction Status Date / Time adhesive tape Allergy Itching Verified 10/15/24 14:06 Vital Signs Vital Signs - 24 hr 10/15/24 11:29 10/15/24 11:36 10/15/24 11:36 Temperature Pulse Rate 73 73 Respiratory Rate 17 Blood Pressure 140/77 152/81 H 140/77 Pulse Oximetry 100 Oxygen Delivery 10/15/24 11:36 10/15/24 11:49 10/15/24 12:57 Temperature Pulse Rate 82 80 70 Respiratory Rate 22 H 16 Blood Pressure 124/50 L 129/74 124/76 Pulse Oximetry 98 97 Oxygen Delivery 10/15/24 14:04 10/15/24 14:46 10/15/24 15:07 Temperature 36.4 C L 36.1 C L Pulse Rate 79 63 110 H Respiratory Rate 18 19 18 Blood Pressure 146/79 H 114/79 128/66 Pulse Oximetry 97 97 94 Oxygen Delivery 10/15/24 16:09 10/15/24 20:00 10/15/24 20:00 Temperature Pulse Rate 76 Respiratory Rate Blood Pressure Pulse Oximetry 94 Oxygen Delivery Room Air Room Air 10/16/24 00:00 10/16/24 00:00 10/16/24 00:35 Temperature 36.4 C Pulse Rate 76 70 Respiratory Rate 14 Blood Pressure 142/63 H Pulse Oximetry 100 Oxygen Delivery Room Air 10/16/24 04:00 10/16/24 04:00 10/16/24 04:00 Temperature 36.6 C Pulse Rate 61 58 L Respiratory Rate 14 Blood Pressure 143/76 H Pulse Oximetry 90 Oxygen Delivery Room Air 10/16/24 06:00 10/16/24 07:17 10/16/24 08:00 Temperature 36.5 C Pulse Rate 56 L 60 Respiratory Rate 18 Blood Pressure 155/59 H Pulse Oximetry 97 Oxygen Delivery Room Air 10/16/24 08:00 10/16/24 10:00 Temperature Pulse Rate 60 56 L Respiratory Rate Blood Pressure Pulse Oximetry Oxygen Delivery Exam 2 Narrative: Appears stated age Const: General: comfortable and no acute distress HENMT: Face/Nose/Sinus: Normal nares present Mouth: Yes moist mucous membranes Eyes: General: appearance normal, both eyes and all related structures S clera: sclerae normal Neck: Neck: supple and no JVD Chest: Other: No reproducible chest wall pain to palpation Resp: Effort & Inspection: normal respiratory effort Auscultation: clear to auscultation bilaterally Cardio: Rate: regular rate Rhythm: regular rhythm GI: Inspection: non-distended GI Palp: Yes Soft to palpation A uscultation: normal bowel sounds Skin: General skin exam: normal color and no rashes or lesions noted Neuro: Sensory Exam: normal sensation Extrem: General: normal to inspection Psych: Attitude: not belligerent Results Labs and Meds 10/16/24 04:42 10/16/24 04:42 Lab results: Cardiac Enzymes 10/15/24 10/15/24 10/15/24 Range/Units 11:22 14:11 17:05 AST 22 (17-59) U/L Troponin I 0.016 0.039 H* D 0.076 H* D (0.000-0.034) ng/mL 10/16/24 Range/Units 09:15 AST (17-59) U/L Troponin I 0.114 H* (0.000-0.034) ng/mL Coagulation 10/15/24 10/15/24 10/16/24 Range/Units 11:22 18:01 01:20 PT 14.3 14.2 (11.1-14.7) Seconds APTT 33.4 33.6 60.0 H (22.3-36.8) Seconds 10/16/24 Range/Units 09:15 PT (11.1-14.7) Seconds APTT 133.9 H (22.3-36.8) Seconds Lipids 10/16/24 Range/Units 04:42 Triglycerides 104 (<150) mg/dL Cholesterol 183 (0-200) mg/dL CBC 10/15/24 10/16/24 Range/Units 11:22 04:42 WBC 9.8 8.9 (4.5-10.0) K/mm3 RBC 3.98 L 3.21 L (4.6-6.20) M/mm3 Hgb 12.9 L 10.5 L (14.0-18.0) g/dL Hct 40.6 L 33.0 L (42.0-52.0) % Plt Count 295 236 (150-375) k/mm3 Lymph # (Auto) 0.93 1.74 (0.9-3.2) K/mm3 Rich # (Auto) 0.8 H 0.8 H (0.1-0.6) K/mm3 Eos # (Auto) 0.2 0.3 (0-0.3) K/mm3 Baso # (Auto) 0.0 0.1 (0.0-0.1) K/mm3 Comprehensive Metabolic Panel 10/15/24 10/16/24 Range/Units 11:22 04:42 Sodium 141 140 (137-145) mmol/L Potassium 3.5 3.6 (3.4-5.0) mmol/L Chloride 106 110 H (98-107) mmol/L Carbon Dioxide 25 25 (22-30) mmol/L BUN 26 H 18 (9-20) mg/dL Creatinine 1.21 1.04 (0.7-1.3) mg/dL Glucose 102 86 (65-110) mg/dL Calcium 8.9 8.5 (8.4-10.2) mg/dL AST 22 (17-59) U/L ALT 21 (6-50) U/L Alkaline Phosphatase 153 H (38-126) U/L Total Protein 7.4 (6.3-8.2) g/dL Albumin 3.8 (3.5-5.1) g/dL Intake and Output 10/15/24 10/16/24 10/16/24 23:59 07:59 15:59 Intake Total 240 1076.1 67.8 Output Total 325 Balance 240 751.1 67.8 Intake: IV 1076.1 67.8 Heparin Sod/D5w 100 Units/ml 25 76.1 67.8 ,000 units In 250 ml @ 1,000 UNITS/HR 10 mls/hr IV CONT . Q24H KIESHA Rx#:[id number] Sodium Chloride 0.9% IV 1,000 1000 ml @ 100 mls/hr IV CONT .Q10H KIESHA Rx#:[id number] Oral 240 Output: Urine 325 Other: # Incontinent Voids 1 # Urine Diapers 1
--- NOTE | 2024-10-16 12:01 | PM.IMPN ---
Progress Note: A&P Assessment and Plan (1) Hypertension: Code(s): I10 - Essential (primary) hypertension Status: Acute (2) Diarrhea: Code(s): R19.7 - Diarrhea, unspecified Status: Acute (3) Chronic kidney disease: Code(s): N18.9 - Chronic kidney disease, unspecified Status: Acute (4) Dementia: Code(s): F03.90 - Unspecified dementia, unspecified severity, without behavioral disturbance, psychotic disturbance, mood disturbance, and anxiety Status: Acute (5) Burst fracture of lumbar vertebra: Code(s): S32.001A - Stable burst fracture of unspecified lumbar vertebra, initial encounter for closed fracture Status: Acute (6) Atrial fibrillation and flutter: Code(s): I48.91 - Unspecified atrial fibrillation; I48.92 - Unspecified atrial flutter Status: Acute (7) Elevated troponin I level: Code(s): R77.8 - Other specified abnormalities of plasma proteins Status: Acute Plan 84-year-old male with a past medical history dementia, atrial fibrillation on Eliquis, hypertension who presents to [facility] ER on 10/15/2024 as he supposedly has a syncopal episode at home and reported diarrhea. On admission troponins were checked and they were minimally elevated. Heparin GTT was started. Cardiology consultation placed. Aspirin given. Admitted to IMU with telemetry. No diarrhea reported since admission. U tox negative. No C diff sample obtained. CT chest abdomen pelvis demonstrating fluid in the colon consistent with history of diarrhea, no other acute process. A likely subacute L1 burst fracture with 20% anterior vertebral body height loss and 4 mm retropulsion resulting in mild central canal stenosis, indeterminate 1 cm high attenuation right renal lesion. CT head without acute process but chronic age related changes. Cervical spine CT demonstrating severe cervical spondylosis. ----- 10/16/2024: Troponin slowly up trending with patient has no pain. He does not give great history although. Cardiology consultation completed. 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 Will hold midodrine check orthostatic vital signs. Heparin GTT has been discontinued. Discussion to be had with family in regards to orthostatic hypotension/age and ability/falls/Eliquis versus aspirin. Continue normal saline at 100 cc/hour. Neurosurgical consultation pending. Full code. Regular diet. Normal saline at 100 cc/hour. Continue telemetry. Subjective Date/time seen: 10/16/24 12:01 Interval history: No major events overnight aside from patient continuing to be altered. When seen he is groaning and does not provide any valuable information. Review of Systems Review of Systems: All systems reviewed & are unremarkable except as noted in HPI and below (Subjective) ROS unobtainable: Yes unobtainable due to medical condition Exam Eyes: Pupils: Equal, round and reactive pupils present Neck: Neck: supple Resp: Effort & Inspection: normal respiratory effort Auscultation: clear to auscultation bilaterally Other: Limited participation Cardio: Rate: regular rate Rhythm: regular rhythm GI: Inspection: non-distended GI Palp: Yes Soft to palpation Extrem: General: no edema Objective Data Vital Signs Vital Signs: Vital Signs - 24 hr 10/15/24 12:57 10/15/24 14:04 10/15/24 14:46 Temperature 97.5 F L Pulse Rate 70 79 63 Respiratory Rate 16 18 19 Blood Pressure 124/76 146/79 H 114/79 Pulse Oximetry 97 97 97 Oxygen Delivery 10/15/24 15:07 10/15/24 16:09 10/15/24 20:00 Temperature 97.0 F L Pulse Rate 110 H Respiratory Rate 18 Blood Pressure 128/66 Pulse Oximetry 94 94 Oxygen Delivery Room Air Room Air 10/15/24 20:00 10/16/24 00:00 10/16/24 00:00 Temperature Pulse Rate 76 76 Respiratory Rate Blood Pressure Pulse Oximetry Oxygen Delivery Room Air 10/16/24 00:35 10/16/24 04:00 10/16/24 04:00 Temperature 97.6 F 97.8 F Pulse Rate 70 61 Respiratory Rate 14 14 Blood Pressure 142/63 H 143/76 H Pulse Oximetry 100 90 Oxygen Delivery Room Air 10/16/24 04:00 10/16/24 06:00 10/16/24 07:17 Temperature 97.7 F Pulse Rate 58 L 56 L 60 Respiratory Rate 18 Blood Pressure 155/59 H Pulse Oximetry 97 Oxygen Delivery 10/16/24 08:00 10/16/24 08:00 10/16/24 10:00 Temperature Pulse Rate 60 56 L Respiratory Rate Blood Pressure Pulse Oximetry Oxygen Delivery Room Air 10/16/24 11:34 Temperature 97.8 F Pulse Rate 58 L Respiratory Rate 18 Blood Pressure 166/92 H Pulse Oximetry 100 Oxygen Delivery Intake/Output Intake/Output: Intake & Output 10/13/24 10/14/24 10/15/24 10/16/24 23:59 23:59 23:59 23:59 Intake Total 2240 1143.9 Output Total 325 Balance 2240 818.9 Meds/Results Medications: Active Medications Generic Name Dose Route Start Last Admin Trade Name Freq PRN Reason Stop Dose Admin Acetaminophen 650 mg 10/15/24 16:27 Acetaminophen 325 Mg Tablet PO Q4H PRN Mild Pain (1-3) or Fever Hydrocodone Bitart/Acetaminophen 1 tab 10/15/24 16:27 Hydrocodone/Acetaminophen (*Crx) 5-325 Mg Tablet PO Q4H PRN Moderate Pain (4-6) Docusate Sodium 100 mg 10/15/24 17:00 10/16/24 09:12 Docusate Sodium 100 Mg Capsule PO 100 mg BID KIESHA Administration Sodium Chloride 1,000 mls @ 100 mls/hr 10/15/24 16:30 10/16/24 07:28 Normal Saline Iv IV CONT 100 mls/hr .Q10H KIESHA Administration Midodrine 2.5 mg 10/15/24 18:15 10/16/24 09:12 Midodrine Hcl 2.5 Mg Tablet PO 2.5 mg TID KIESHA Administration Morphine Sulfate 2 mg 10/15/24 16:27 Morphine Sulfate (*Crx) 2 Mg/Ml Inj IV PUSH Q4H PRN Pain Rated 7-10 Nitroglycerin 0.4 mg 10/15/24 17:46 Nitroglycerin Sl 0.4 Mg Tablet SUBLINGUAL Q5MIN PRN Chest Pain Perflutren Lipid Microsphere 0 ml 10/15/24 17:46 Perflutren Lipid Microspheres 1.5 Ml Vial Diluted To 10 Ml Total Volume IV PUSH 10/18/24 17:48 ONCE PRN adequate visualization Protocol Rosuvastatin Calcium 20 mg 10/15/24 21:00 10/15/24 23:00 Rosuvastatin 20 Mg Tablet PO Not Given HS [facility] Radiology Results: ITS Impressions Chest X-Ray 10/15/24 11:22 IMPRESSION: 1. Bilateral calcified pleural plaques consistent with prior asbestos exposure. No acute cardiopulmonary disease. Head CT 10/15/24 12:26 IMPRESSION: 1. No fracture or acute intracranial process. 2. Age-related changes including moderate diffuse volume loss and moderate scattered white matter hypoattenuation consistent with chronic small vessel ischemic disease. 3. Chronic bilateral otomastoiditis effusions. Cervical Spine CT 10/15/24 12:38 IMPRESSION: 1. Severe cervical spondylosis. No acute osseous abnormality. Chest/Abdomen/Pelvis CT 10/15/24 12:46 IMPRESSION: 1. Chronic bilateral pleural plaques consistent with prior asbestos exposure. No acute cardiopulmonary disease. 2. Fluid in the colon consistent with given history of diarrhea. No other acute intra-abdominal/pelvic process. 3. Likely subacute L1 burst fracture with 20% anterior vertebral body height loss and 4 mm retropulsion resulting in mild central canal stenosis. 4. Indeterminate 1 cm high attenuation right renal lesion statistically most likely to represent a proteinaceous/hemorrhagic cyst although renal cell carcinoma could not be excluded and would recommend follow-up pre and postcontrast MRI or CT. Labs Labs: Laboratory Results - last 24 hr 10/15/24 10/15/24 10/15/24 11:22 12:52 14:11 WBC RBC Hgb Hct MCV MCH MCHC RDW Plt Count MPV Immature Gran % (Auto) Neut % (Auto) Lymph % (Auto) [place] % (Auto) Eos % (Auto) Baso % (Auto) Lymph # (Auto) [place] # (Auto) Eos # (Auto) Baso # (Auto) Abs Immat Gran (auto) Absolute Neuts (auto) Absolute Nucleated RBC Nucleated RBC % PT INR APTT Sodium Potassium Chloride Carbon Dioxide Anion Gap BUN Creatinine Estim Creat Clear Calc Estimated GFR Glucose Calcium Magnesium Troponin I 0.016 0.039 H* D NT-Pro-B Natriuret Pep 1240 H Triglycerides Cholesterol LDL Cholesterol Direct HDL Direct TSH (Reflex) 1.650 Urine Color Yellow Urine Appearance Clear Urine pH 6.0 Ur Specific [place] 1.021 Urine Protein Trace Urine Glucose (UA) Negative Urine Ketones Negative Ur Blood (Man) Negative Urine Nitrate Negative Urine Bilirubin Negative Urine Urobilinogen 0.2 Leukocyte Esterase Rfl Negative Urine RBC 0-2 Urine WBC 0-5 Ur Squamous Epith Cells None seen Urine Bacteria None seen Urine Casts 0-2 Urine Opiates Screen Negative Urine Methadone Screen Negative Ur Barbiturates Screen Negative Ur Phencyclidine Scrn Negative Ur Amphetamine Screen Negative U Benzodiazepines Scrn Negative Urine Cocaine Screen Negative U Cannabinoids Screen Negative Influenza A (RT-PCR) Negative Influenza B (RT-PCR) Negative RSV (RT-PCR) Negative SARS-CoV-2 RNA (RT-PCR) Negative 10/15/24 10/15/24 10/16/24 17:05 18:01 01:20 WBC RBC Hgb Hct MCV MCH MCHC RDW Plt Count MPV Immature Gran % (Auto) Neut % (Auto) Lymph % (Auto) [place] % (Auto) Eos % (Auto) Baso % (Auto) Lymph # (Auto) [place] # (Auto) Eos # (Auto) Baso # (Auto) Abs Immat Gran (auto) Absolute Neuts (auto) Absolute Nucleated RBC Nucleated RBC % PT 14.2 INR 1.1 APTT 33.6 60.0 H Sodium Potassium Chloride Carbon Dioxide Anion Gap BUN Creatinine Estim Creat Clear Calc Estimated GFR Glucose Calcium Magnesium Troponin I 0.076 H* D NT-Pro-B Natriuret Pep Triglycerides Cholesterol LDL Cholesterol Direct HDL Direct TSH (Reflex) Urine Color Urine Appearance Urine pH Ur Specific [place] Urine Protein Urine Glucose (UA) Urine Ketones Ur Blood (Man) Urine Nitrate Urine Bilirubin Urine Urobilinogen Leukocyte Esterase Rfl Urine RBC Urine WBC Ur Squamous Epith Cells Urine Bacteria Urine Casts Urine Opiates Screen Urine Methadone Screen Ur Barbiturates Screen Ur Phencyclidine Scrn Ur Amphetamine Screen U Benzodiazepines Scrn Urine Cocaine Screen U Cannabinoids Screen Influenza A (RT-PCR) Influenza B (RT-PCR) RSV (RT-PCR) SARS-CoV-2 RNA (RT-PCR) 10/16/24 10/16/24 04:42 09:15 WBC 8.9 RBC 3.21 L Hgb 10.5 L Hct 33.0 L MCV 102.8 H MCH 32.7 MCHC 31.8 L RDW 13.8 Plt Count 236 MPV 9.8 Immature Gran % (Auto) 0.3 Neut % (Auto) 66.8 Lymph % (Auto) 19.6 [place] % (Auto) 9.2 H Eos % (Auto) 3.5 Baso % (Auto) 0.6 Lymph # (Auto) 1.74 [place] # (Auto) 0.8 H Eos # (Auto) 0.3 Baso # (Auto) 0.1 Abs Immat Gran (auto) 0.03 Absolute Neuts (auto) 5.9 Absolute Nucleated RBC 0.000 Nucleated RBC % 0.0 PT INR APTT 133.9 H Sodium 140 Potassium 3.6 Chloride 110 H Carbon Dioxide 25 Anion Gap 5 BUN 18 Creatinine 1.04 Estim Creat Clear Calc 46 Estimated GFR > 60 Glucose 86 Calcium 8.5 Magnesium 2.2 Troponin I 0.114 H* NT-Pro-B Natriuret Pep Triglycerides 104 Cholesterol 183 LDL Cholesterol Direct 110 HDL Direct 31 TSH (Reflex) Urine Color Urine Appearance Urine pH Ur Specific [place] Urine Protein Urine Glucose (UA) Urine Ketones Ur Blood (Man) Urine Nitrate Urine Bilirubin Urine Urobilinogen Leukocyte Esterase Rfl Urine RBC Urine WBC Ur Squamous Epith Cells Urine Bacteria Urine Casts Urine Opiates Screen Urine Methadone Screen Ur Barbiturates Screen Ur Phencyclidine Scrn Ur Amphetamine Screen U Benzodiazepines Scrn Urine Cocaine Screen U Cannabinoids Screen Influenza A (RT-PCR) Influenza B (RT-PCR) RSV (RT-PCR) SARS-CoV-2 RNA (RT-PCR)
[2024-10-16 13:01] LABS: Troponin I 0.084 ng/mL (0.000-0.034)
[2024-10-16] MEDS: ROSUVASTATIN 20 MG TABLET PO (20:17)
[2024-10-17] VITALS (15 sets, daily range): BP systolic 129–209; BP diastolic 22–105; PULSE 59–96; RESP 16–18; TEMP 36.5–36.9; O2SAT 91–100
--- NOTE | 2024-10-17 | ECHO_ITS ---
Patient Info Name: Petar Marquez Age: 84 years : 1940 Gender: Male Ht: 74 in Wt: 160 lbs BSA: 1.94 m2 HR: 80 bpm BP: 132 / 96 mmHg Heart Rhythm: Sinus Rhythm Technical Quality: Fair Exam Date: 10/17/2024 11:30 AM Patient Status: I Admit Date: 10/16/2024 Exam Type: CA echo dop color flow w con Complete two-dimensional, color flow and Doppler transthoracic echocardiogram is performed with contrast to opacify the left ventricle and to improve the deliniation of the left ventricle endocardial borders. Staff Referring Physician: Ponce Levi Associate Professor Of English: Morena Grayson Attending Provider: Reuben Mosher Contrast/Agitated Saline Contrast/Ag. Saline: Definity Amount: 2.00 ml Administered By: Morena Grayson Existing IV Access: Yes IV Access Condition: patent with no signs of infiltration Summary 1. The left ventricle is normal in size and systolic function. Left ventricular ejection fraction is visually estimated be 60-65%. There are no regional wall motion abnormalities. 2. The right ventricle is normal in size and systolic function. 3. The aortic valve is trileaflet and sclerotic. There is no aortic stenosis. There is trace aortic regurgitation. Left Ventricle The left ventricle is normal in size and systolic function. Left ventricular ejection fraction is visually estimated be 60-65%. There are no regional wall motion abnormalities. Right Ventricle The right ventricle is normal in size and systolic function. Left Atria The left atrium is normal size. Right Atria The right atrium is normal size. Atrial Septum The atrial septum is grossly intact. Aortic Valve The aortic valve is trileaflet and sclerotic. There is no aortic stenosis. There is trace aortic regurgitation. Pulmonic Valve The pulmonic valve is not visualized. Mitral Valve The mitral valve leaflets are thickened. There is trace mitral regurgitation. Tricuspid Valve The tricuspid valve is not well visualized. Pericardium/Pleural Pericardium is normal in appearance with no evidence for significant pericardial effusion. Inferior Vena Cava Normal inferior vena cava with >50% collapse upon inspiration consistent with normal right atrial pressure, 3 mmHg. Aorta The aortic root at the level of the sinus of Valsalva measures 3.1 cm in diameter. Left Ventricular Outflow Tract Name Value Normal LVOT 2D LVOT Diameter 2.1 cm LVOT Doppler LVOT Peak Velocity 77 cm/s LVOT Peak Gradient 2 mmHg LVOT Mean Gradient 1 mmHg LVOT VTI 17 cm LVOT VTI/AV VTI Ratio 0.5 LVOT Stroke Volume 56 ml LVOT CO 3.7 l/min LVOT CI 1.9 l/min/m2 Pulmonic Valve Name Value Normal RVOT Doppler RVOT Peak Velocity 66 cm/s RVOT Peak Gradient 2 mmHg PV Doppler PV Peak Velocity 95 cm/s PV Peak Gradient 4 mmHg Mitral Valve Name Value Normal MV Diastolic Function MV E Peak Velocity 80 cm/s MV A Peak Velocity 106 cm/s MV E/A 0.8 MV Decel Time (PW) 208 ms MV Annular TDI MV E/e' (Septal) 12.4 MV E/e' (Lateral) 9.6 MV E/e' (Average) 11.0 Tricuspid Valve Name Value Normal TV Regurgitation Doppler TR Peak Velocity 231 cm/s TR Peak Gradient 21 mmHg Estimated PAP/RSVP RA Pressure 3 mmHg <=5 PA Systolic Pressure 24 mmHg <36 RV Systolic Pressure 24 mmHg <36 TV Annular TDI TV Lateral Jennifer s' Velocity 13.9 cm/s >=9.5 Aortic Valve Name Value Normal AV Doppler AV Peak Velocity 149 cm/s AV Peak Gradient 9 mmHg AV Mean Gradient 4 mmHg AV VTI 31 cm AV Area (Cont Eq VTI) 1.8 cm2 >=3.0 AV Area (Cont Eq Hammad) 1.7 cm2 AV DI (Hammad) 0.52 AV Regurgitation 2D LVOT Area 3.3 cm2 Ventricles Name Value Normal LV Dimensions 2D/MM IVS Diastolic Thickness (2D) 1.1 cm 0.6-1.0 LVID Diastole (2D) 4.0 cm 4.2-5.8 LVIW Diastolic Thickness (2D) 1.0 cm 0.6-1.0 LVID Systole (2D) 2.6 cm 2.5-4.0 LVOT Diameter 2.1 cm LV Mass (2D Cubed) 132.32 g 88.00-224.00 LV Mass Index (2D Cubed) 68 g/m2 49-115 Relative Wall Thickness (2D) 0.49 <=0.42 LV Fractional Shortening/Ejection Fraction 2D/MM LV Fractional Shortening (2D) 34 % 25-43 LV EF (2D Teichholz) 64 % LV Diastolic Volume (4C MOD) 94 ml LV EF (4C MOD) 70 % LV Diastolic Volume (2C MOD) 55 ml LV EF (2C MOD) 64 % LV Diastolic Volume (BP MOD) 75 ml 62-150 LV Diastolic Volume Index (BP MOD) 39 ml/m2 34-74 LV Systolic Volume (BP MOD) 25 ml 21-61 LV Systolic Volume Index (BP MOD) 13 ml/m2 11-31 LV EF (BP MOD) 67 % 52-72 LV Diastolic Length (4C) 8.7 cm LV Systolic Length (4C) 7.5 cm LV Stroke Volume (4C MOD) 66 ml Atria Name Value Normal LA Dimensions LA Volume (4C A-L) 20 ml LA Volume (BP A-L) 29 ml RA Dimensions RA Area (4C) 20.8 cm2 <=18.0 Report Signatures
[2024-10-17] MEDS: SODIUM CHLORIDE 0.9% IV 1,000 ML 100 ML IV CONT ×2 (00:33→11:08)
[2024-10-17 05:06] LABS: Hematocrit 35.7 % (42.0-52.0); Hemoglobin 11.4 g/dL (14.0-18.0); Immature Granulocyte Percent A 0.2 % (0-0.5); Lymphocytes Absolute Auto 1.31 K/mm3 (0.9-3.2); Mean Corpuscular HGB Conc 31.9 g/dl (32-36); Mean Corpuscular Hemoglobin 32.5 pg (26-34); Mean Corpuscular Volume 101.7 fl (80-100); Nucleated Red Blood Cells Absolute Auto 0.000 K/mm3 (0.0-0.012); Nucleated Red Blood Cells Perc 0.0 % (0.0-0.2); Platelet Count Result 254 k/mm3 (150-375); Red Blood Count 3.51 M/mm3 (4.6-6.20); White Blood Count 9.2 K/mm3 (4.5-10.0)
[2024-10-17 05:26] LABS: Anion Gap 6 mmol/L (4-12); Blood Urea Nitrogen 17 mg/dL (9-20); Calcium 8.6 mg/dL (8.4-10.2); Carbon Dioxide 24 mmol/L (22-30); Chloride 110 mmol/L (98-107); Estimated CRCL calculation 47 ml/min; Estimated Glomerular Filt Rate > 60; Glucose 88 mg/dL (65-110); Magnesium 2.2 mg/dL (1.6-2.3); Potassium 3.3 mmol/L (3.4-5.0); Sodium 140 mmol/L (137-145)
[2024-10-17] MEDS: DOCUSATE SODIUM 100 MG CAPSULE PO ×2 (08:19→16:22)
[2024-10-17] MEDS: ACETAMINOPHEN 325 MG TABLET 650 MG PO ×2 (08:32→16:22)
[2024-10-17] MEDS: PERFLUTREN LIPID MICROSPHERES 1.5 ML VIAL DILUTED TO 10 ML TOTAL VOLUME IV PUSH (11:45)
--- NOTE | 2024-10-17 12:21 | IVDEFINITY ---
Prior to administration of IV Definity the patient was educated on the risks and benefits of the imaging enhancing agent including potential adverse side effects. The patient verbalized understanding. Allergies were verified. No exclusion criteria were identified and at least one of the following inclusion criteria were met: 1) physician request, 2) patient technically difficult to image (per the [place] [employer] guidelines of two or more segments not discernable within the apical view), or 3) questionable left ventricular function. ?
--- NOTE | 2024-10-17 13:05 | P.PNIM_ITS ---
Progress Note: A&P Assessment and Plan (1) Hypertension: Code(s): I10 - Essential (primary) hypertension Status: Acute (2) Diarrhea: Code(s): R19.7 - Diarrhea, unspecified Status: Acute (3) Chronic kidney disease: Code(s): N18.9 - Chronic kidney disease, unspecified Status: Acute (4) Dementia: Code(s): F03.90 - Unspecified dementia, unspecified severity, without behavioral disturbance, psychotic disturbance, mood disturbance, and anxiety Status: Acute (5) Burst fracture of lumbar vertebra: Code(s): S32.001A - Stable burst fracture of unspecified lumbar vertebra, initial encounter for closed fracture Status: Acute (6) Atrial fibrillation and flutter: Code(s): I48.91 - Unspecified atrial fibrillation; I48.92 - Unspecified atrial flutter Status: Acute (7) Elevated troponin I level: Code(s): R77.8 - Other specified abnormalities of plasma proteins Status: Acute Plan 84-year-old male with a past medical history dementia, atrial fibrillation on Eliquis, hypertension who presents to [facility] ER on 10/15/2024 as he supposedly has a syncopal episode at home and reported diarrhea. Syncope likely from volume depletion from diarrhea Diarrhea has resolved, no diarrhea since the 10/15 repeat ortho vital signs today, on Midodrine 2.5mg tid from home ECHO pending Elevated troponin Cardiology noted it is likely demand and recommended cotinuing Eliquis vs Aspirin and Crestor f/u ECHO cardiology on board Diarrhea resolved continue above care L1 burst fracture Patient does not appear to be in pain CT head and cervical spine unremarkable PT/OT Afib Continue rate control Continue Eliquis once ortho vital signs is wnl cardiology following Dementia continue home meds DVT prophylaxis on Eliquis Subjective Date/time seen: 10/17/24 13:05 Interval history: Comfortable at bedside No diarrhea since 10/15 Review of Systems Review of Systems: 12 systems were reviewed and are negativ e except for as per HPI. All systems reviewed & are unremarkable except as noted in HPI and below (Subjective) ROS unobtainable: Yes unobtainable due to medical condition and unobtainable due to mental status Exam Narrative: General: Ill-looking pale HEENT: normocephalic, atraumatic. Mucous membranes moist. EOMI, PERRLA, bilateral sclera anicteric, no conjunctival injection. Neck supple without JVD, lymphadenopathy, or bruit. Respiratory: clear to ascultation bilaterally. No rales/rhonic/wheezes. Cardiovascular: Regular rate and rhythm, normal S1-S2 upon ascultation. No murmurs, rubs, or clicks. PMI is nondisplaced, capillary refill less than 3 second. Abdomen: Soft, round, no pulsatile masses, nondistended and nontender. No rebound, no guarding. No CVA tenderness, no hepatosplenomegaly. Bowel sounds present to all four quadrants. No high pitch or tinkling sounds, resonant to percussion. Extremities: No cyanosis, clubbing, or edema present. Pulses are palpable 2/2. Active ROM to all four extremities. Neuro: Alert and orientated x 1. PERRLA. Cranial nerves 2-12 intact without focal deficit. Skin: Warm, dry, and intact, without rash, erythema, or lesion. Psych: pleasant, cooperative, normal speech, normal affect, no hallucinations, no dysarthia Eyes: Pupils: Equal, round and reactive pupils present Neck: Neck: supple Resp: Effort & Inspection: normal respiratory effort Auscultation: clear to auscultation bilaterally Other: Limited participation Cardio: Rate: regular rate Rhythm: regular rhythm GI: Inspection: non-distended Neuro: Cranial nerves: Yes Equal, round and reactive pupils present Extrem: General: no edema Objective Data Vital Signs Vital Signs: Vital Signs - 24 hr 10/16/24 14:00 10/16/24 15:56 10/16/24 16:00 Temperature 97.5 F L Pulse Rate 61 60 59 L Respiratory Rate 18 Blood Pressure 144/66 H Pulse Oximetry 99 Oxygen Delivery Fraction of Inspired Oxygen 10/16/24 20:00 10/16/24 20:00 10/16/24 21:05 Temperature Pulse Rate 60 Respiratory Rate Blood Pressure Pulse Oximetry 94 Oxygen Delivery Room Air Room Air Fraction of Inspired Oxygen 21 10/16/24 22:00 10/16/24 23:39 10/17/24 00:00 Temperature 97.8 F Pulse Rate 62 81 59 L Respiratory Rate 18 Blood Pressure 180/79 H Pulse Oximetry 97 Oxygen Delivery Fraction of Inspired Oxygen 10/17/24 00:35 10/17/24 03:52 10/17/24 04:00 Temperature 97.9 F Pulse Rate 62 62 59 L Respiratory Rate 18 Blood Pressure 191/83 H 188/92 H Pulse Oximetry 98 Oxygen Delivery Fraction of Inspired Oxygen 10/17/24 06:42 10/17/24 08:00 Temperature 97.7 F Pulse Rate 80 Respiratory Rate 16 Blood Pressure 157/96 H 132/96 H Pulse Oximetry 97 Oxygen Delivery Fraction of Inspired Oxygen Intake/Output Intake/Output: Intake & Output 10/14/24 10/15/24 10/16/24 10/17/24 23:59 23:59 23:59 23:59 Intake Total 2240 2377.2 1955 Output Total 1575 2100 Balance 2240 802.2 -145 Meds/Results Medications: Active Medications Generic Name Dose Route Start Last Admin Trade Name Freq PRN Reason Stop Dose Admin Acetaminophen 650 mg 10/15/24 16:27 10/17/24 08:32 Acetaminophen 325 Mg Tablet PO 650 mg Q4H PRN Administration Mild Pain (1-3) or Fever Docusate Sodium 100 mg 10/15/24 17:00 10/17/24 08:19 Docusate Sodium 100 Mg Capsule PO 100 mg BID KIESHA Administration Hydralazine HCl 5 mg 10/17/24 03:51 10/17/24 04:05 Hydralazine Hcl 20 Mg/Ml Vial IV PUSH 5 mg Q6H PRN Administration Blood Pressure - High Sodium Chloride 1,000 mls @ 100 mls/hr 10/15/24 16:30 10/17/24 11:08 Normal Saline Iv IV CONT 100 mls/hr .Q10H KIESHA Administration Nitroglycerin 0.4 mg 10/15/24 17:46 Nitroglycerin Sl 0.4 Mg Tablet SUBLINGUAL Q5MIN PRN Chest Pain Rosuvastatin Calcium 20 mg 10/15/24 21:00 10/16/24 20:17 Rosuvastatin 20 Mg Tablet PO 20 mg HS KIESHA Administration Radiology Results: ITS Impressions Chest X-Ray 10/15/24 11:22 IMPRESSION: 1. Bilateral calcified pleural plaques consistent with prior asbestos exposure. No acute cardiopulmonary disease. Head CT 10/15/24 12:26 IMPRESSION: 1. No fracture or acute intracranial process. 2. Age-related changes including moderate diffuse volume loss and moderate scattered white matter hypoattenuation consistent with chronic small vessel ischemic disease. 3. Chronic bilateral otomastoiditis effusions. Cervical Spine CT 10/15/24 12:38 IMPRESSION: 1. Severe cervical spondylosis. No acute osseous abnormality. Chest/Abdomen/Pelvis CT 10/15/24 12:46 IMPRESSION: 1. Chronic bilateral pleural plaques consistent with prior asbestos exposure. No acute cardiopulmonary disease. 2. Fluid in the colon consistent with given history of diarrhea. No other acute intra-abdominal/pelvic process. 3. Likely subacute L1 burst fracture with 20% anterior vertebral body height loss and 4 mm retropulsion resulting in mild central canal stenosis. 4. Indeterminate 1 cm high attenuation right renal lesion statistically most likely to represent a proteinaceous/hemorrhagic cyst although renal cell carcinoma could not be excluded and would recommend follow-up pre and postcontrast MRI or CT. Labs Labs: Laboratory Results - last 24 hr 10/17/24 04:39 WBC 9.2 RBC 3.51 L Hgb 11.4 L Hct 35.7 L MCV 101.7 H MCH 32.5 MCHC 31.9 L RDW 13.9 Plt Count 254 MPV 9.9 Immature Gran % (Auto) 0.2 Neut % (Auto) 71.7 Lymph % (Auto) 14.2 L Jones % (Auto) 9.9 H Eos % (Auto) 3.5 Baso % (Auto) 0.5 Lymph # (Auto) 1.31 [place] # (Auto) 0.9 H Eos # (Auto) 0.3 Baso # (Auto) 0.1 Abs Immat Gran (auto) 0.02 Absolute Neuts (auto) 6.6 Absolute Nucleated RBC 0.000 Nucleated RBC % 0.0 Sodium 140 Potassium 3.3 L Chloride 110 H Carbon Dioxide 24 Anion Gap 6 BUN 17 Creatinine 1.02 Estim Creat Clear Calc 47 Estimated GFR > 60 Glucose 88 Calcium 8.6 Magnesium 2.2 Quality VTE Prophylaxis VTE prophylaxis: mechanical ordered
[2024-10-17] MEDS: MIDODRINE HCL 2.5 MG TABLET PO (16:22)
[2024-10-17] MEDS: ROSUVASTATIN 20 MG TABLET PO (20:04)
[2024-10-18] VITALS (10 sets, daily range): BP systolic 152–182; BP diastolic 86–114; PULSE 67–97; RESP 16–18; TEMP 36.8–36.9; O2SAT 97–99
[2024-10-18] MEDS: ACETAMINOPHEN 325 MG TABLET 650 MG PO (00:05)
[2024-10-18] MEDS: SODIUM CHLORIDE 0.9% IV 1,000 ML 100 ML IV CONT ×2 (00:08→10:55)
[2024-10-18 04:15] LABS: Hematocrit 38.3 % (42.0-52.0); Hemoglobin 12.3 g/dL (14.0-18.0); Immature Granulocyte Percent A 0.5 % (0-0.5); Lymphocytes Absolute Auto 1.18 K/mm3 (0.9-3.2); Mean Corpuscular HGB Conc 32.1 g/dl (32-36); Mean Corpuscular Hemoglobin 32.5 pg (26-34); Mean Corpuscular Volume 101.3 fl (80-100); Nucleated Red Blood Cells Absolute Auto 0.000 K/mm3 (0.0-0.012); Nucleated Red Blood Cells Perc 0.0 % (0.0-0.2); Platelet Count Result 268 k/mm3 (150-375); Red Blood Count 3.78 M/mm3 (4.6-6.20); White Blood Count 11.0 K/mm3 (4.5-10.0)
[2024-10-18 04:33] LABS: Alanine Aminotransferase 21 U/L (6-50); Albumin Level 3.5 g/dL (3.5-5.1); Alkaline Phosphatase 149 U/L (38-126); Anion Gap 7 mmol/L (4-12); Aspartate Amino Transferase 33 U/L (17-59); Bilirubin,Total 0.6 mg/dL (0.2-1.3); Blood Urea Nitrogen 17 mg/dL (9-20); Calcium 8.7 mg/dL (8.4-10.2); Carbon Dioxide 22 mmol/L (22-30); Chloride 107 mmol/L (98-107); Estimated CRCL calculation 54 ml/min; Estimated Glomerular Filt Rate > 60; Glucose 103 mg/dL (65-110); Magnesium 2.1 mg/dL (1.6-2.3); Potassium 3.3 mmol/L (3.4-5.0); Sodium 136 mmol/L (137-145); Total Protein 6.8 g/dL (6.3-8.2)
--- NOTE | 2024-10-18 04:40 | PC.NURSE ---
This patient, Petar Marquez, was transferred to [facility] on 10/18/24 at 0420 Personal belongings sent with patient. Report given to Jordan MEHTA. Appropriate documentation sent with patient.
--- NOTE | 2024-10-18 05:51 | P.CONNS_ITS ---
Assessment and Plan Assessment and plan (1) Burst fracture of lumbar vertebra: Code(s): S32.001A - Stable burst fracture of unspecified lumbar vertebra, initial encounter for closed fracture Status: Acute Assessment and Plan: Mr. Petar Marquez is a 84 y/o M with Dementia - CT C/A shows L1 Burst fracture with minimal retropulsion - Patient doesn't seem to have back pain - If patient unable to tolerate ambulation due to pain, please call [facility] for LSO brace, if he can tolerate - No f/u needed Consult date: 10/18/24 Reason for consult: L1 Fx HPI: Petar Marquez is a 84 year old male with PMH of Dementia who came in to the ED on 10/15/2024 due to a syncopal episode and diarrhea. CT A/P showed a L1 Burst fracture with 20% SNEHA and minimal retropulsion with mild central stenosis. Per ED doc, patient does not appear to have back pain. I offered a LSO brace, but ED physician did not think the patient would tolerate it due to his dementia. [facility] Past Medical History Medical History Atrial fibrillation Impacted cerumen of both ears Dementia Family History Family History Father Hypertension Sibling COPD (chronic obstructive pulmonary disease) Cancer Cerebrovascular accident Heart attack COVID Social History Social History Social History: Caffeine-coffee/soda Smoking status: Former smoker Second hand tobacco smoke exposure: No Alcohol intake: never Substance use: never Lack of Transportation: No Lack of Food: Never True Current Housing: I Have Housing Concerned About Future Housing: No Difficulty Paying Gas/Electric Bills: No Difficulty Paying for Meds: No Currently Unemployed: No Education: Trade/Vocational Certificate Difficulty w/ Childcare or Family Care: No Living arrangements: with family Occupation/Education: retired Gender identity (if verbalized by the patient): Male Spiritual care concerns: No Meds Home Medications and Allergies Home Medications ?Medication ?Instructions ?Recorded ?Confirmed ?Type omeprazole 20 mg capsule,delayed 20 mg PO HS 11/26/20 10/15/24 History release rosuvastatin 20 mg tablet 20 mg PO HS 11/26/20 10/15/24 History apixaban 5 mg tablet (Eliquis) 5 mg PO Q12HR 30 days #60 tabs 12/12/20 10/15/24 Rx tamsulosin 0.4 mg capsule 0.4 mg PO HS 09/09/22 10/15/24 History multivitamin (Daily Multi-Vitamin 1 tablet PO DAILY 07/26/24 10/15/24 History tablet) midodrine 2.5 mg tablet 2.5 mg PO TID 10/15/24 10/15/24 History Allergies Allergy/AdvReac Type Severity Reaction Status Date / Time adhesive tape Allergy Itching Verified 10/15/24 14:06 Vital Signs Vital Signs - 24 hr 10/17/24 06:42 10/17/24 08:00 10/17/24 08:00 Temperature 36.5 C Pulse Rate 80 Respiratory Rate 16 Blood Pressure 157/96 H 132/96 H Pulse Oximetry 97 100 Oxygen Delivery Room Air 10/17/24 08:00 10/17/24 12:00 10/17/24 13:09 Temperature Pulse Rate 91 94 74 Respiratory Rate Blood Pressure 175/79 H Pulse Oximetry 100 Oxygen Delivery 10/17/24 13:10 10/17/24 13:10 10/17/24 16:00 Temperature 36.7 C Pulse Rate 74 Respiratory Rate 16 Blood Pressure 157/79 H 129/63 191/89 H Pulse Oximetry 100 Oxygen Delivery 10/17/24 16:00 10/17/24 19:45 10/17/24 19:49 Temperature Pulse Rate 91 83 Respiratory Rate Blood Pressure 207/92 H Pulse Oximetry 100 Oxygen Delivery Room Air 10/17/24 19:53 10/17/24 20:00 10/17/24 20:02 Temperature 36.9 C Pulse Rate 80 91 96 Respiratory Rate 16 Blood Pressure 209/105 H 152/22 H Pulse Oximetry 91 Oxygen Delivery 10/18/24 00:00 10/18/24 00:00 10/18/24 02:24 Temperature 36.8 C Pulse Rate 86 78 97 Respiratory Rate 16 Blood Pressure 181/87 H 152/114 H Pulse Oximetry 97 Oxygen Delivery 10/18/24 04:00 Temperature Pulse Rate 92 Respiratory Rate Blood Pressure Pulse Oximetry Oxygen Delivery Results Labs 10/18/24 03:59 10/18/24 03:59 Labs: Short CBC 10/18/24 Range/Units 03:59 WBC 11.0 H (4.5-10.0) K/mm3 Hgb 12.3 L (14.0-18.0) g/dL Hct 38.3 L (42.0-52.0) % Plt Count 268 (150-375) k/mm3 BMP 10/18/24 03:59 Sodium 136 L Potassium 3.3 L Chloride 107 Carbon Dioxide 22 BUN 17 Creatinine 0.88 Glucose 103 Calcium 8.7 Liver Function 10/18/24 Range/Units 03:59 Total Bilirubin 0.6 (0.2-1.3) mg/dL AST 33 (17-59) U/L ALT 21 (6-50) U/L Alkaline Phosphatase 149 H (38-126) U/L Albumin 3.5 (3.5-5.1) g/dL
[2024-10-18] MEDS: MIDODRINE HCL 2.5 MG TABLET PO ×3 (09:01→17:18)
[2024-10-18] MEDS: DOCUSATE SODIUM 100 MG CAPSULE PO ×2 (09:01→17:19)
--- NOTE | 2024-10-18 12:47 | PM.IMPN ---
Progress Note: A&P Assessment and Plan (1) Hypertension: Code(s): I10 - Essential (primary) hypertension Status: Acute (2) Diarrhea: Code(s): R19.7 - Diarrhea, unspecified Status: Acute (3) Chronic kidney disease: Code(s): N18.9 - Chronic kidney disease, unspecified Status: Acute (4) Dementia: Code(s): F03.90 - Unspecified dementia, unspecified severity, without behavioral disturbance, psychotic disturbance, mood disturbance, and anxiety Status: Acute (5) Burst fracture of lumbar vertebra: Code(s): S32.001A - Stable burst fracture of unspecified lumbar vertebra, initial encounter for closed fracture Status: Acute (6) Atrial fibrillation and flutter: Code(s): I48.91 - Unspecified atrial fibrillation; I48.92 - Unspecified atrial flutter Status: Acute (7) Elevated troponin I level: Code(s): R77.8 - Other specified abnormalities of plasma proteins Status: Acute Plan 84-year-old male with a past medical history dementia, atrial fibrillation on Eliquis, hypertension who presents to [facility] ER on 10/15/2024 as he supposedly has a syncopal episode at home and reported diarrhea. # Syncope likely from volume depletion from diarrhea Diarrhea has resolved, no diarrhea since the 10/15 repeat ortho vital signs, on Midodrine 2.5mg tid from home ECHO EF 60-65% no regional wall motion abnormalities no valvular abnormalities # Elevated troponin Cardiology noted it is likely demand and recommended cotinuing Eliquis vs Aspirin and Crestor f/u ECHO cardiology on board # Diarrhea resolved continue above care # L1 burst fracture Patient does not appear to be in pain CT head and cervical spine unremarkable PT/OT Neurosurgery consulted will order LSO brace and ambulate with therapy here. # Afib Continue rate control Continue Eliquis once ortho vital signs is wnl cardiology following # severe Dementia continue home meds # DVT prophylaxis on Eliquis Subjective Date/time seen: 10/18/24 12:47 Interval history: no overnight events, patient awake and conversant, remains confused, patient has underlying dementia Review of Systems Review of Systems: ROS unobtainable: Yes unobtainable due to mental status Exam Narrative: General: Ill-looking pale, not in acute distress HEENT: normocephalic, atraumatic. Mucous membranes moist. EOMI, PERRLA Respiratory: clear to auscultation bilaterally. No rales/rhonic/wheezes. Cardiovascular: Regular rate and rhythm, normal S1-S2 upon ascultation. Abdomen: Soft, round, no pulsatile masses, nondistended and nontender. No rebound, no guarding. Extremities: No cyanosis, clubbing, or edema present. Pulses are palpable 2/2. Active ROM to all four extremities. Neuro: Alert and orientated x 1. PERRLA. Cranial nerves 2-12 intact without focal deficit. Skin: Warm, dry, and intact, without rash, erythema, or lesion. Psych: pleasant, cooperative, normal speech, normal affect, no hallucinations, no dysarthia Objective Data Vital Signs Vital Signs: Vital Signs - 24 hr 10/17/24 13:09 10/17/24 13:10 10/17/24 13:10 Temperature Pulse Rate 74 Respiratory Rate Blood Pressure 175/79 H 157/79 H 129/63 Pulse Oximetry 100 Oxygen Delivery 10/17/24 16:00 10/17/24 16:00 10/17/24 19:45 Temperature 98.1 F Pulse Rate 74 91 83 Respiratory Rate 16 Blood Pressure 191/89 H 207/92 H Pulse Oximetry 100 Oxygen Delivery 10/17/24 19:49 10/17/24 19:53 10/17/24 20:00 Temperature 98.4 F Pulse Rate 80 91 Respiratory Rate 16 Blood Pressure 209/105 H Pulse Oximetry 100 91 Oxygen Delivery Room Air 10/17/24 20:02 10/18/24 00:00 10/18/24 00:00 Temperature 98.3 F Pulse Rate 96 86 78 Respiratory Rate 16 Blood Pressure 152/22 H 181/87 H Pulse Oximetry 97 Oxygen Delivery 10/18/24 02:24 10/18/24 04:00 10/18/24 08:00 Temperature Pulse Rate 97 92 78 Respiratory Rate Blood Pressure 152/114 H Pulse Oximetry Oxygen Delivery 10/18/24 08:59 10/18/24 09:00 10/18/24 12:00 Temperature Pulse Rate 69 Respiratory Rate Blood Pressure 169/86 H Pulse Oximetry Oxygen Delivery Room Air Intake/Output Intake/Output: Intake & Output 10/15/24 10/16/24 10/17/24 10/18/24 23:59 23:59 23:59 23:59 Intake Total 2240 2377.2 2785 2220 Output Total 1575 3650 650 Balance 2240 802.2 -865 1570 Meds/Results Medications: Active Medications Generic Name Dose Route Start Last Admin Trade Name Freq PRN Reason Stop Dose Admin Acetaminophen 650 mg 10/15/24 16:27 10/18/24 00:05 Acetaminophen 325 Mg Tablet PO 650 mg Q4H PRN Administration Mild Pain (1-3) or Fever Amoxicillin/Clavulanate Potassium 1 tablet 10/17/24 21:00 10/18/24 09:01 Amoxicillin/Clavulanate K 875-125 Mg Tab PO 10/24/24 20:59 1 tablet Q12HR KIESHA Administration Docusate Sodium 100 mg 10/15/24 17:00 10/18/24 09:01 Docusate Sodium 100 Mg Capsule PO 100 mg BID KIESHA Administration Hydralazine HCl 5 mg 10/17/24 03:51 10/17/24 19:41 Hydralazine Hcl 20 Mg/Ml Vial IV PUSH 5 mg Q6H PRN Administration Blood Pressure - High Sodium Chloride 1,000 mls @ 100 mls/hr 10/15/24 16:30 10/18/24 10:55 Normal Saline Iv IV CONT 100 mls/hr .Q10H KIESHA Administration Midodrine 2.5 mg 10/17/24 13:30 10/18/24 12:35 Midodrine Hcl 2.5 Mg Tablet PO 2.5 mg TID KIESHA Administration Nitroglycerin 0.4 mg 10/15/24 17:46 Nitroglycerin Sl 0.4 Mg Tablet SUBLINGUAL Q5MIN PRN Chest Pain Rosuvastatin Calcium 20 mg 10/15/24 21:00 10/17/24 20:04 Rosuvastatin 20 Mg Tablet PO 20 mg HS KIESHA Administration Radiology Results: ITS Impressions Chest X-Ray 10/15/24 11:22 IMPRESSION: 1. Bilateral calcified pleural plaques consistent with prior asbestos exposure. No acute cardiopulmonary disease. Head CT 10/15/24 12:26 IMPRESSION: 1. No fracture or acute intracranial process. 2. Age-related changes including moderate diffuse volume loss and moderate scattered white matter hypoattenuation consistent with chronic small vessel ischemic disease. 3. Chronic bilateral otomastoiditis effusions. Cervical Spine CT 10/15/24 12:38 IMPRESSION: 1. Severe cervical spondylosis. No acute osseous abnormality. Chest/Abdomen/Pelvis CT 10/15/24 12:46 IMPRESSION: 1. Chronic bilateral pleural plaques consistent with prior asbestos exposure. No acute cardiopulmonary disease. 2. Fluid in the colon consistent with given history of diarrhea. No other acute intra-abdominal/pelvic process. 3. Likely subacute L1 burst fracture with 20% anterior vertebral body height loss and 4 mm retropulsion resulting in mild central canal stenosis. 4. Indeterminate 1 cm high attenuation right renal lesion statistically most likely to represent a proteinaceous/hemorrhagic cyst although renal cell carcinoma could not be excluded and would recommend follow-up pre and postcontrast MRI or CT. Labs Labs: Laboratory Results - last 24 hr 10/18/24 03:59 WBC 11.0 H RBC 3.78 L Hgb 12.3 L Hct 38.3 L MCV 101.3 H MCH 32.5 MCHC 32.1 RDW 13.6 Plt Count 268 MPV 9.7 Immature Gran % (Auto) 0.5 Neut % (Auto) 74.9 H Lymph % (Auto) 10.7 L [place] % (Auto) 10.1 H Eos % (Auto) 3.3 Baso % (Auto) 0.5 Lymph # (Auto) 1.18 [place] # (Auto) 1.1 H Eos # (Auto) 0.4 H Baso # (Auto) 0.1 Abs Immat Gran (auto) 0.05 H Absolute Neuts (auto) 8.3 H Absolute Nucleated RBC 0.000 Nucleated RBC % 0.0 Sodium 136 L Potassium 3.3 L Chloride 107 Carbon Dioxide 22 Anion Gap 7 BUN 17 Creatinine 0.88 Estim Creat Clear Calc 54 Estimated GFR > 60 Glucose 103 Calcium 8.7 Magnesium 2.1 Total Bilirubin 0.6 AST 33 ALT 21 Alkaline Phosphatase 149 H Total Protein 6.8 Albumin 3.5
[2024-10-18] MEDS: POTASSIUM CHLORIDE 20 MEQ ER TABLET 40 MEQ PO (17:20)
[2024-10-18] MEDS: ROSUVASTATIN 20 MG TABLET PO (22:25)
[2024-10-19] VITALS (10 sets, daily range): BP systolic 163–179; BP diastolic 71–96; PULSE 59–74; RESP 16–18; TEMP 36.3–37; O2SAT 96–99
[2024-10-19 05:55] LABS: Hematocrit 39.4 % (42.0-52.0); Hemoglobin 12.7 g/dL (14.0-18.0); Immature Granulocyte Percent A 0.5 % (0-0.5); Lymphocytes Absolute Auto 1.10 K/mm3 (0.9-3.2); Mean Corpuscular HGB Conc 32.2 g/dl (32-36); Mean Corpuscular Hemoglobin 33.1 pg (26-34); Mean Corpuscular Volume 102.6 fl (80-100); Nucleated Red Blood Cells Absolute Auto 0.000 K/mm3 (0.0-0.012); Nucleated Red Blood Cells Perc 0.0 % (0.0-0.2); Platelet Count Result 249 k/mm3 (150-375); Red Blood Count 3.84 M/mm3 (4.6-6.20); White Blood Count 9.4 K/mm3 (4.5-10.0)
[2024-10-19] MEDS: SODIUM CHLORIDE 0.9% IV 1,000 ML 100 ML IV CONT ×2 (06:20→17:14)
[2024-10-19 06:30] LABS: Alanine Aminotransferase 19 U/L (6-50); Albumin Level 3.4 g/dL (3.5-5.1); Alkaline Phosphatase 133 U/L (38-126); Anion Gap 7 mmol/L (4-12); Aspartate Amino Transferase 32 U/L (17-59); Bilirubin,Total 0.6 mg/dL (0.2-1.3); Blood Urea Nitrogen 19 mg/dL (9-20); Calcium 8.7 mg/dL (8.4-10.2); Carbon Dioxide 22 mmol/L (22-30); Chloride 108 mmol/L (98-107); Estimated CRCL calculation 50 ml/min; Estimated Glomerular Filt Rate > 60; Glucose 95 mg/dL (65-110); Magnesium 2.2 mg/dL (1.6-2.3); Potassium 3.7 mmol/L (3.4-5.0); Sodium 137 mmol/L (137-145); Total Protein 6.7 g/dL (6.3-8.2)
[2024-10-19] MEDS: DOCUSATE SODIUM 100 MG CAPSULE PO ×2 (09:30→18:24)
[2024-10-19] MEDS: MIDODRINE HCL 2.5 MG TABLET PO ×3 (09:30→18:24)
--- NOTE | 2024-10-19 17:15 | P.PNIM_ITS ---
Progress Note: A&P Assessment and Plan (1) Hypertension: Code(s): I10 - Essential (primary) hypertension Status: Acute (2) Diarrhea: Code(s): R19.7 - Diarrhea, unspecified Status: Acute (3) Chronic kidney disease: Code(s): N18.9 - Chronic kidney disease, unspecified Status: Acute (4) Dementia: Code(s): F03.90 - Unspecified dementia, unspecified severity, without behavioral disturbance, psychotic disturbance, mood disturbance, and anxiety Status: Acute (5) Burst fracture of lumbar vertebra: Code(s): S32.001A - Stable burst fracture of unspecified lumbar vertebra, initial encounter for closed fracture Status: Acute (6) Atrial fibrillation and flutter: Code(s): I48.91 - Unspecified atrial fibrillation; I48.92 - Unspecified atrial flutter Status: Acute (7) Elevated troponin I level: Code(s): R77.8 - Other specified abnormalities of plasma proteins Status: Acute Plan 84-year-old male with a past medical history dementia, atrial fibrillation on Eliquis, hypertension who presents to [facility] ER on 10/15/2024 as he supposedly has a syncopal episode at home and reported diarrhea. # Syncope likely from volume depletion from diarrhea Diarrhea has resolved, no diarrhea since the 10/15 repeat ortho vital signs, on Midodrine 2.5mg tid from home ECHO EF 60-65% no regional wall motion abnormalities no valvular abnormalities # Elevated troponin Cardiology noted it is likely demand and recommended cotinuing Eliquis vs Aspirin and Crestor f/u ECHO cardiology on board # Diarrhea resolved continue above care # L1 burst fracture Patient does not appear to be in pain CT head and cervical spine unremarkable PT/OT Neurosurgery consulted will order LSO brace and ambulate with therapy here. # Afib Continue rate control Continue Eliquis once ortho vital signs is wnl cardiology following # severe Dementia continue home meds no overnight events, patient awake and remains confused, unable to provider any ROS or history, patient has underlying dementia, PT worked with the patient, seen by neurosurgery, patient has L1 Burst fracture with minimal retropulsion, patient does not complaints of pain, may use LSO brace to help with ambulation. # DVT prophylaxis on Eliquis Subjective Date/time seen: 10/19/24 17:15 Interval history: no overnight events, patient awake and remains confused, unable to provider any ROS or history, patient has underlying dementia, PT worked with the patient, seen by neurosurgery, patient has L1 Burst fracture with minimal retropulsion, patient does not complaints of pain, may use LSO brace to help with ambulation. Review of Systems Review of Systems: ROS unobtainable: Yes unobtainable due to medical condition and unobtainable due to mental status Exam Narrative: Elderly frail Patient is comfortable, NAD HEENT: eyes are clear and none icteric LUNGS:CTA HEART: RR S1S2 ABD: BS+, Soft and nontender Lower extremities: no edema SKIN: nonjaundiced Neuro: grossly intact. confused Objective Data Vital Signs Vital Signs: Vital Signs - 24 hr 10/18/24 20:00 10/18/24 20:00 10/18/24 21:52 Temperature 36.9 C Pulse Rate 67 71 Respiratory Rate 18 Blood Pressure 182/98 H Pulse Oximetry 99 Oxygen Delivery Room Air Fraction of Inspired Oxygen 10/19/24 00:00 10/19/24 04:00 10/19/24 06:00 Temperature 36.4 C L Pulse Rate 65 70 67 Respiratory Rate 16 Blood Pressure 179/96 H Pulse Oximetry 99 Oxygen Delivery Fraction of Inspired Oxygen 10/19/24 08:00 10/19/24 08:00 10/19/24 09:07 Temperature Pulse Rate 67 67 Respiratory Rate 16 Blood Pressure Pulse Oximetry 99 Oxygen Delivery Room Air Room Air Fraction of Inspired Oxygen 21 10/19/24 11:05 10/19/24 14:00 Temperature 36.3 C L Pulse Rate 70 Respiratory Rate 18 Blood Pressure 163/71 H Pulse Oximetry 98 Oxygen Delivery Room Air Fraction of Inspired Oxygen Intake/Output Intake/Output: Intake & Output 10/16/24 10/17/24 10/18/24 10/19/24 23:59 23:59 23:59 23:59 Intake Total 2377.2 2785 3220 716 Output Total 1575 2480 1950 575 Balance 802.2 -865 1270 141 Meds/Results Medications: Active Medications Generic Name Dose Route Start Last Admin Trade Name Freq PRN Reason Stop Dose Admin Acetaminophen 650 mg 10/15/24 16:27 10/18/24 00:05 Acetaminophen 325 Mg Tablet PO 650 mg Q4H PRN Administration Mild Pain (1-3) or Fever Amoxicillin/Clavulanate Potassium 1 tablet 10/17/24 21:00 10/19/24 09:30 Amoxicillin/Clavulanate K 875-125 Mg Tab PO 10/24/24 20:59 1 tablet Q12HR KIESHA Administration Docusate Sodium 100 mg 10/15/24 17:00 10/19/24 09:30 Docusate Sodium 100 Mg Capsule PO 100 mg BID KIESHA Administration Hydralazine HCl 5 mg 10/17/24 03:51 10/17/24 19:41 Hydralazine Hcl 20 Mg/Ml Vial IV PUSH 5 mg Q6H PRN Administration Blood Pressure - High Sodium Chloride 1,000 mls @ 100 mls/hr 10/15/24 16:30 10/19/24 09:30 Normal Saline Iv IV CONT Not Given .Q10H KIESHA Midodrine 2.5 mg 10/17/24 13:30 10/19/24 15:39 Midodrine Hcl 2.5 Mg Tablet PO 2.5 mg TID KIESHA Administration Nitroglycerin 0.4 mg 10/15/24 17:46 Nitroglycerin Sl 0.4 Mg Tablet SUBLINGUAL Q5MIN PRN Chest Pain Rosuvastatin Calcium 20 mg 10/15/24 21:00 10/18/24 22:25 Rosuvastatin 20 Mg Tablet PO 20 mg HS KIESHA Administration Radiology Results: ITS Impressions Chest X-Ray 10/15/24 11:22 IMPRESSION: 1. Bilateral calcified pleural plaques consistent with prior asbestos exposure. No acute cardiopulmonary disease. Head CT 10/15/24 12:26 IMPRESSION: 1. No fracture or acute intracranial process. 2. Age-related changes including moderate diffuse volume loss and moderate scattered white matter hypoattenuation consistent with chronic small vessel ischemic disease. 3. Chronic bilateral otomastoiditis effusions. Cervical Spine CT 10/15/24 12:38 IMPRESSION: 1. Severe cervical spondylosis. No acute osseous abnormality. Chest/Abdomen/Pelvis CT 10/15/24 12:46 IMPRESSION: 1. Chronic bilateral pleural plaques consistent with prior asbestos exposure. No acute cardiopulmonary disease. 2. Fluid in the colon consistent with given history of diarrhea. No other acute intra-abdominal/pelvic process. 3. Likely subacute L1 burst fracture with 20% anterior vertebral body height loss and 4 mm retropulsion resulting in mild central canal stenosis. 4. Indeterminate 1 cm high attenuation right renal lesion statistically most likely to represent a proteinaceous/hemorrhagic cyst although renal cell carcinoma could not be excluded and would recommend follow-up pre and postcontrast MRI or CT. Labs Labs: Laboratory Results - last 24 hr 10/19/24 05:46 WBC 9.4 RBC 3.84 L Hgb 12.7 L Hct 39.4 L MCV 102.6 H MCH 33.1 MCHC 32.2 RDW 14.0 Plt Count 249 MPV 9.9 Immature Gran % (Auto) 0.5 Neut % (Auto) 71.2 Lymph % (Auto) 11.7 L [place] % (Auto) 10.6 H Eos % (Auto) 5.6 H Baso % (Auto) 0.4 Lymph # (Auto) 1.10 [place] # (Auto) 1.0 H Eos # (Auto) 0.5 H Baso # (Auto) 0.0 Abs Immat Gran (auto) 0.05 H Absolute Neuts (auto) 6.7 Absolute Nucleated RBC 0.000 Nucleated RBC % 0.0 Sodium 137 Potassium 3.7 Chloride 108 H Carbon Dioxide 22 Anion Gap 7 BUN 19 Creatinine 0.96 Estim Creat Clear Calc 50 Estimated GFR > 60 Glucose 95 Calcium 8.7 Magnesium 2.2 Total Bilirubin 0.6 AST 32 ALT 19 Alkaline Phosphatase 133 H Total Protein 6.7 Albumin 3.4 L Quality VTE Prophylaxis VTE prophylaxis: mechanical ordered
[2024-10-19] MEDS: ROSUVASTATIN 20 MG TABLET PO (20:35)
[2024-10-20] VITALS (8 sets, daily range): BP systolic 97–184; BP diastolic 67–92; PULSE 61–84; RESP 16–18; TEMP 36.1–36.6; O2SAT 92–100
[2024-10-20] MEDS: SODIUM CHLORIDE 0.9% IV 1,000 ML 100 ML IV CONT (05:09)
[2024-10-20] MEDS: MIDODRINE HCL 2.5 MG TABLET PO ×3 (08:53→15:52)
[2024-10-20] MEDS: DOCUSATE SODIUM 100 MG CAPSULE PO (08:53)
--- NOTE | 2024-10-20 14:52 | PM.DS ---
DS: Admitting Diagnosis Discharge Date 10/20/24 Admitting Diagnosis Diarrhea DS: Discharge Diagnosis Discharge Diagnosis (1) Hypertension: Code(s): I10 - Essential (primary) hypertension Status: Acute (2) Diarrhea: Code(s): R19.7 - Diarrhea, unspecified Status: Acute (3) Chronic kidney disease: Code(s): N18.9 - Chronic kidney disease, unspecified Status: Acute (4) Dementia: Code(s): F03.90 - Unspecified dementia, unspecified severity, without behavioral disturbance, psychotic disturbance, mood disturbance, and anxiety Status: Acute (5) Burst fracture of lumbar vertebra: Code(s): S32.001A - Stable burst fracture of unspecified lumbar vertebra, initial encounter for closed fracture Status: Acute (6) Atrial fibrillation and flutter: Code(s): I48.91 - Unspecified atrial fibrillation; I48.92 - Unspecified atrial flutter Status: Acute (7) Elevated troponin I level: Code(s): R77.8 - Other specified abnormalities of plasma proteins Status: Acute Plan 84-year-old male with a past medical history dementia, atrial fibrillation on Eliquis, hypertension who presents to [facility] ER on 10/15/2024 as he supposedly has a syncopal episode at home and reported diarrhea. # Syncope likely from volume depletion from diarrhea Diarrhea has resolved, no diarrhea since the 10/15 repeat ortho vital signs, on Midodrine 2.5mg tid from home ECHO EF 60-65% no regional wall motion abnormalities no valvular abnormalities # Elevated troponin Cardiology noted it is likely demand and recommended cotinuing Eliquis vs Aspirin and Crestor f/u ECHO cardiology on board # Diarrhea resolved continue above care # L1 burst fracture Patient does not appear to be in pain CT head and cervical spine unremarkable PT/OT Neurosurgery consulted will order LSO brace and ambulate with therapy here. # Afib Continue rate control Continue Eliquis once ortho vital signs is wnl cardiology following # severe Dementia continue home meds no overnight events, patient awake and remains confused, unable to provider any ROS or history, patient has underlying dementia, PT worked with the patient, seen by neurosurgery, patient has L1 Burst fracture with minimal retropulsion, patient does not complaints of pain, may use LSO brace to help with ambulation. # DVT prophylaxis on Eliquis DS: Summary Hospital Course Hospital Course: no overnight events, patient awake and remains confused, unable to provider any ROS or history, patient has underlying dementia, PT worked with the patient, seen by neurosurgery, patient has L1 Burst fracture with minimal retropulsion, patient does not complaints of pain, may use LSO brace to help with ambulation. today patient is present, does not want the patient to go NH, would like to take the patient home, also discussed with the patient and patient is now DNR, patient remains his baseline will discharge home with his . Time Spent with Patient Time attestation: Total time spent providing and/or coordinating discharge services: Exam Narrative: Elderly frail Patient is comfortable, NAD HEENT: eyes are clear and none icteric LUNGS:CTA HEART: RR S1S2 ABD: BS+, Soft and nontender Lower extremities: no edema SKIN: nonjaundiced Neuro: grossly intact. confused Discharge Plan Discharge Attending physician on discharge: Reuben Mosher Consulting providers: Ron Tom; Naun Harrell; Lucio Silva; Ricky Santana; Miroslava Yu; Jane Camp; Obey Strauss Discharging Clinician: Eve Rubalcava Patient Disposition: Home with Home Health Service Activity: as tolerated Diet: heart healthy Discharge Instructions: Per Care Coordination, pt. to discharge with [facility] ) for PT/OT and correction services. Please fax discharge instructions and medication sheets to [phone]. patient to follow up with his primary care provider as scheduled, patient will need repeat x-ray of his spine, patient is instructed is any symptoms worsen to go to nearest ER. Patient Instructions: Antibiotic Form Patient Language: [place] Islander Stand Alone Forms: General Discharge Information Follow-up/Referrals: Car,MD Nick [Primary Care Provider] - Discharge Medications: New amoxicillin-pot clavulanate [Augmentin] 500-125 mg tablet 1 tablet PO Q8H Qty: 15 0RF nitroglycerin [Nitrostat] 0.4 mg Tablet, Sublingual 0.4 mg sublingual Q5MIN PRN (Reason: Chest Pain) Qty: 26 0RF docusate sodium 100 mg Capsule 100 mg PO BID Qty: 30 0RF Continued omeprazole 20 mg capsule,delayed release(DR/EC) 20 mg PO HS rosuvastatin 20 mg tablet 20 mg PO HS Eliquis 5 mg Tablet 5 mg PO Q12HR 30 Days Qty: 60 0RF multivitamin [Daily Multi-Vitamin] Tablet 1 tablet PO DAILY midodrine 2.5 mg tablet 2.5 mg PO TID Rx Instructions: do not give last dose of day after 6PM or within 4 hrs of bedtime Held tamsulosin 0.4 mg capsule 0.4 mg PO HS Hold Instructions: until seen by primary care Date of admission: 10/16/24 07:53 Primary Care Provider: TanviNick Admitting Provider: Reuben Mosher Attending physician on admission: Eve Rubalcava Condition: Stable
== END 2024-10-20 15:54 | disposition home health service (06) | DRG 641 ==
LOC: ANHED 13:46 → ANH2MED 14:47 → ANHIMU 19:57 → ANH3MEDSUR 10-18 05:31
PROVIDERS: General Practice; Internal Medicine; Nurse Practitioner Gerontology; Admitting Provider Internal Medicine; Emergency Provider Emergency Medicine; PCP Internal Medicine; Visit Provider Family Medicine
DX: E86.0 Dehydration (principal); S32.011A Stable burst fracture of first lumbar vertebra, initial encounter for closed fracture; I24.89 Other forms of acute ischemic heart disease; I95.1 Orthostatic hypotension; R19.7 Diarrhea, unspecified; I48.91 Unspecified atrial fibrillation; F03.90 Unspecified dementia, unspecified severity, without behavioral disturbance, psychotic disturbance, mood disturbance, and anxiety; I12.9 Hypertensive chronic kidney disease with stage 1 through stage 4 chronic kidney disease, or unspecified chronic kidney disease; Z66 Do not resuscitate; N18.9 Chronic kidney disease, unspecified; Z87.891 Personal history of nicotine dependence; Z79.01 Long term (current) use of anticoagulants
CPT/HCPCS: 36415; 70450; 71046; 71260; 72125; 74177; 80048; 80053; 80061; 80307; 81001; 82077; 82803; 83605; 83690; 83735; 83880; 84100; 84443; 84484; 85025; 85610; 85730; 87637; 93005; 96360; 96361; 97110; 97116; 97162; 97165; 97530; 97535; 99285; A9270; C8929; G0378; J0360; J1644; J7030; Q9957; Q9967

== ENCOUNTER 2024-12-27 00:43 | Observation (INO) | payer MEDICARE, SELFPAY ==
[2024-12-27] VITALS (8 sets, daily range): BP systolic 135–179; BP diastolic 69–118; PULSE 68–82; RESP 14–20; TEMP 36.2–36.8; O2SAT 94–100; BMI 21.5
--- NOTE | ~2024-12-27 | US_ITS ---
EXAMINATION: US renal BI DATE: 12/27/2024 11:41 INDICATION: Acute renal insufficiency TECHNIQUE: Multiple ultrasound grayscale images of the kidneys were obtained. COMPARISON: CT dated 10/15/2024 FINDINGS: The right kidney measures 10.3 x 5.3 x 4.7 cm. The left kidney measures 9.9 x 4.8 x 5.0 cm. The kidneys demonstrate normal echogenicity. There is a 9 mm hypoechoic exophytic lesion at the lower pole the right kidney which demonstrate relatively high attenuation on the prior postcontrast CT which remains indeterminate for complex proteinaceous/hemorrhagic cyst versus solid renal cell carcinoma. There is no hydronephrosis in either kidney. No stones identified. The bladder is normal. IMPRESSION: 1. Indeterminate 9 mm hypoechoic exophytic lesion at the lower pole the right kidney which could represent proteinaceous/hemorrhagic cyst or solid renal cell carcinoma. Lesion is too small for definitive determination by ultrasound and would recommend further evaluation with either pre and postcontrast MRI or CT. Otherwise normal kidneys without hydronephrosis. Reviewed, dictated and finalized at location A. IMPRESSION: 1. Indeterminate 9 mm hypoechoic exophytic lesion at the lower pole the right k idney which could represent proteinaceous/hemorrhagic cyst or solid renal cell carcinoma. Lesion is too small for definitive determination by ultrasound and w ould recommend further evaluation with either pre and postcontrast MRI or CT. O therwise normal kidneys without hydronephrosis.
--- NOTE | ~2024-12-27 | CT_ITS ---
EXAMINATION: CT brain wo gila, 12/27/2024 1:06 CDT HISTORY: unwitnessed fall COMPARISON: No comparisons available. Technique: Axial images obtained of the brain without contrast. One or more of the following dose reduction techniques were used: automated exposure control, adjustment of the mA and/or kV according to patient size, use of iterative reconstruction technique. Findings: No acute infarct or parenchymal hemorrhage. No abnormal mass or mass effect. No midline shift. No extra-axial fluid collections. No hydrocephalus. Nonspecific bilateral mastoid effusions. Sinuses and orbits unremarkable. No acute fracture. No significant facial or scalp soft tissue swelling evident. No radiopaque foreign body is seen. Impression: 1.No acute intracranial abnormality. Reviewed, dictated and finalized at location A. Impression: 1.No acute intracranial abnormality.
--- NOTE | ~2024-12-27 | XR_ITS ---
Examination: XR chest 1V portable Clinical History: AMS Comparison: CT chest abdomen and pelvis 10/15/2024 Technique: Portable AP Findings: Heart size mildly enlarged. Calcified pleural plaques as before. Mild patchy bibasilar opacities. No acute bony abnormality. IMPRESSION: 1. Mild bibasilar atelectasis and/or airspace disease. Reviewed, dictated and finalized at location R.
--- NOTE | ~2024-12-27 | CT_ITS ---
EXAMINATION: CT cervical spine wo con COMPARISON: None HISTORY: unwitnessed fall TECHNIQUE: Axial images were obtained through the spine without IV contrast. Coronal, sagittal reconstruction images were obtained from the axial views. CT scan performed using dose optimization techniques including the following automated exposure control; adjustment of mA and/or kV; use of iterative reconstruction technique. Automatic exposure control was used to reduce radiation dose. Permanent radiation dose record is archived to PACS. FINDINGS: Moderate loss of vertebral height throughout, no acute fracture or subluxation is identified. There is severe loss of disc height at C4-5 C5-6 and C6-7 with moderate to severe canal and foraminal stenosis, outpatient MRI is recommended Soft tissues unremarkable. Impression: No acute abnormality. Reviewed, dictated and finalized at location A. Impression: No acute abnormality.
[2024-12-27 01:46] LABS: Hematocrit 39.0 % (42.0-52.0); Hemoglobin 12.7 g/dL (14.0-18.0); Immature Granulocyte Percent A 0.5 % (0-0.5); Lymphocytes Absolute Auto 1.45 K/mm3 (0.9-3.2); Mean Corpuscular HGB Conc 32.6 g/dl (32-36); Mean Corpuscular Hemoglobin 32.7 pg (26-34); Mean Corpuscular Volume 100.5 fl (80-100); Nucleated Red Blood Cells Absolute Auto 0.000 K/mm3 (0.0-0.012); Nucleated Red Blood Cells Perc 0.0 % (0.0-0.2); Platelet Count Result 229 k/mm3 (150-375); Red Blood Count 3.88 M/mm3 (4.6-6.20); White Blood Count 11.8 K/mm3 (4.5-10.0)
[2024-12-27 02:06] LABS: Anion Gap 6 mmol/L (4-12); Blood Urea Nitrogen 52 mg/dL (9-20); Calcium 8.9 mg/dL (8.4-10.2); Carbon Dioxide 27 mmol/L (22-30); Chloride 104 mmol/L (98-107); Estimated CRCL calculation 35 ml/min; Estimated Glomerular Filt Rate 46; Glucose 102 mg/dL (65-110); Potassium 4.8 mmol/L (3.4-5.0); Sodium 137 mmol/L (137-145)
[2024-12-27] MEDS: OLANZapine ODT DISPERTAB 5 MG PO (03:02)
--- NOTE | 2024-12-27 03:27 | ADMGEN ---
This patient, Petar Marquez, was admitted to Medical Room 246-01. Patient/family oriented to hospital policies and general routines including ID bracelet, bed and alarms, visiting hours, pain management, procedures, bathroom and other care routines, personal items, smoking policy, room service/diet, and visiting hours. Information on how to activate the Rapid Response Team has been discussed. Patient/Family are encouraged to report perceived risks to care and to ask questions if they do not understand what they are told or what they should do.
--- NOTE | 2024-12-27 03:53 | PC.NURSE ---
0315 RECIEVED PATIENT FROM ED WITH NO REPORT CALLED TO FLOOR PRIOR TO ARRIVAL. WHEN MOVED PATIENT TO BED FROM STRETCHER, HE WAS IN HIS HOME DEPEND AND WAS SOAKED WITH URINE THROUGH TO THE SLIDE UNDER HIM. DISCUSSED THIS WITH THE ED NURSE WHEN CALLED FOR REPORT AFTER THE FACT.
--- NOTE | 2024-12-27 06:23 | ED.FALL ---
HPI - Fall General Chief Complaint: Fall Stated Complaint: Multiple falls Time Seen by Provider: 12/27/24 01:17 History of Present Illness HPI Narrative: Patient presents here due to multiple falls today, EMS has been called out to the house twice already since is reluctant to have him go to the hospital, he is DNR DNI with end-stage dementia and she has been trying to care for him at home. Finally unable to pick him up today. He is at baseline denies any complaints. Related Data Home Medications ?Medication ?Instructions ?Recorded ?Confirmed ?Last Taken ?Type omeprazole 20 mg capsule,delayed 20 mg PO HS 11/26/20 12/27/24 Unknown History release rosuvastatin 20 mg tablet 20 mg PO HS 11/26/20 12/27/24 10/13/24 History multivitamin (Daily Multi-Vitamin 1 tablet PO DAILY 07/26/24 12/27/24 10/13/24 History tablet) midodrine 2.5 mg tablet 2.5 mg PO TID 10/15/24 12/27/24 10/15/24 08:35 History Allergies Allergy/AdvReac Type Severity Reaction Status Date / Time adhesive tape Allergy Itching Verified 10/20/24 07:59 Review of Systems Review of Systems: All systems reviewed & are unremarkable except as noted in HPI and below PMFSH Past Medical History Medical History Atrial fibrillation Impacted cerumen of both ears Dementia Family History Family History Father Hypertension Sibling COPD (chronic obstructive pulmonary disease) Cancer Cerebrovascular accident Heart attack COVID Social History Social History (System 10/20/24 @ 07:59 by Elena Thompson) Social History: Caffeine-coffee/soda Smoking status: Never smoker Second hand tobacco smoke exposure: No Alcohol intake: never Substance use: never Lack of Transportation: No Lack of Food: Never True Current Housing: I Have Housing Concerned About Future Housing: No Difficulty Paying Gas/Electric Bills: No Difficulty Paying for Meds: No Currently Unemployed: No Education: High School Diploma/GED Difficulty w/ Childcare or Family Care: No Living arrangements: with family Occupation/Education: retired Gender identity (if verbalized by the patient): Male Spiritual care concerns: No Exam Narrative: EXAMINATION OF ORGAN SYSTEMS/BODY AREAS: Constitutional: Vital signs per nursing GENERAL:[No acute distress, non-toxic appearing.] HEAD: Normal with no signs of head trauma. EYES: EOMI, conjunctiva normal ENT: Hearing grossly intact LUNGS: Nonlabored breathing. HEART: [Regular rate and rhythm] ABD: [Soft], [nontender to palpation] EXT: Normal range of motion, no deformities or tenderness to palpation SKIN: [No rashes or lesions.] NEURO: [Alert; oriented times 0. No gross focal sensory or strength deficits.] PSYCH: Normal affect Course Vital Signs Vital signs: Vital Signs Temperature 98.2 F 12/27/24 00:43 Pulse Rate 81 12/27/24 00:43 Respiratory Rate 19 12/27/24 00:43 Blood Pressure 161/118 H 12/27/24 00:43 Pulse Oximetry 98 12/27/24 00:43 Oxygen Delivery Room Air 12/27/24 00:43 Temperature 97.2 F L 12/27/24 03:28 Pulse Rate 77 12/27/24 03:28 Respiratory Rate 20 12/27/24 03:28 Blood Pressure 165/90 H 12/27/24 03:40 Pulse Oximetry 94 12/27/24 03:28 Oxygen Delivery Room Air 12/27/24 03:31 MDM - Fall MDM Narrative Medical decision making narrative: Patient presents here after multiple falls, he has end-stage dementia and has been trying to care for him at home but unable to pick him up tonight. I am very concerned that he needs placement given the difficulty of his care, discussed with the over the phone. Discussed with hospitalist for admission. Lab Data 12/27/24 01:40 12/27/24 01:40 Labs: Lab Results 12/27/24 Range/Units 01:40 WBC 11.8 H (4.5-10.0) K/mm3 RBC 3.88 L (4.6-6.20) M/mm3 Hgb 12.7 L (14.0-18.0) g/dL Hct 39.0 L (42.0-52.0) % MCV 100.5 H (80-100) fl MCH 32.7 (26-34) pg MCHC 32.6 (32-36) g/dl RDW 13.7 (11.5-14.5) % Plt Count 229 (150-375) k/mm3 MPV 9.7 (7.4-10.4) fl Immature Gran % (Auto) 0.5 (0-0.5) % Neut % (Auto) 75.8 H (45.5-73.1) % Lymph % (Auto) 12.3 L (18.3-44.2) % [place] % (Auto) 8.5 (2.6-8.5) % Eos % (Auto) 2.4 (0-4.4) % Baso % (Auto) 0.5 (0.2-1.2) % Lymph # (Auto) 1.45 (0.9-3.2) K/mm3 [place] # (Auto) 1.0 H (0.1-0.6) K/mm3 Eos # (Auto) 0.3 (0-0.3) K/mm3 Baso # (Auto) 0.1 (0.0-0.1) K/mm3 Abs Immat Gran (auto) 0.06 H (0.00-0.031) K/mm3 Absolute Neuts (auto) 9.0 H (1.3-6.7) K/mm3 Absolute Nucleated RBC 0.000 (0.0-0.012) K/mm3 Nucleated RBC % 0.0 (0.0-0.2) % Sodium 137 (137-145) mmol/L Potassium 4.8 (3.4-5.0) mmol/L Chloride 104 (98-107) mmol/L Carbon Dioxide 27 (22-30) mmol/L Anion Gap 6 (4-12) mmol/L BUN 52 H D (9-20) mg/dL Creatinine 1.46 H (0.7-1.3) mg/dL Estim Creat Clear Calc 35 ml/min Estimated GFR 46 L (59 - ) Glucose 102 (65-110) mg/dL Calcium 8.9 (8.4-10.2) mg/dL Discharge Plan Discharge Clinical Impression: Falls frequently, Dementia Patient Disposition: Still a Patient Condition: Stable
[2024-12-27] MEDS: SODIUM CHLORIDE 0.9% IV 1,000 ML 100 ML IV CONT (06:44)
[2024-12-27] MEDS: cefTRIAXone 1 GM in SODIUM CHLORIDE 0.9% IV 50 ML 100 ML IVPB (06:44)
--- NOTE | 2024-12-27 06:49 | PM.IMHP ---
H&P: HPI History of Present Illness Date/Time: 12/27/24 06:49 Chief Complaint: Failure to thrive Narrative: Brought in by . He has had falls at home, weakness, severe dementia, she is unable to take care of him. WBC 11.8, hemoglobin 12.7, his serum creatinine 1.46 which is new. Failure to thrive, dehydrated. BUN 52. Review of Systems Review of Systems: All systems reviewed & are unremarkable except as noted in HPI and below (Subjective) [facility] Past Medical History Medical History Atrial fibrillation Impacted cerumen of both ears Dementia Family History Family History Father Hypertension Sibling COPD (chronic obstructive pulmonary disease) Cancer Cerebrovascular accident Heart attack COVID Social History Social History (System 10/20/24 @ 07:59 by Elena Thompson) Social History: Caffeine-coffee/soda Smoking status: Never smoker Second hand tobacco smoke exposure: No Alcohol intake: never Substance use: never Lack of Transportation: No Lack of Food: Never True Current Housing: I Have Housing Concerned About Future Housing: No Difficulty Paying Gas/Electric Bills: No Difficulty Paying for Meds: No Currently Unemployed: No Education: High School Diploma/GED Difficulty w/ Childcare or Family Care: No Living arrangements: with family Occupation/Education: retired Gender identity (if verbalized by the patient): Male Spiritual care concerns: No Meds Home Medications and Allergies Home Medications ?Medication ?Instructions ?Recorded ?Confirmed ?Type omeprazole 20 mg capsule,delayed 20 mg PO HS 11/26/20 12/27/24 History release rosuvastatin 20 mg tablet 20 mg PO HS 11/26/20 12/27/24 History multivitamin (Daily Multi-Vitamin 1 tablet PO DAILY 07/26/24 12/27/24 History tablet) midodrine 2.5 mg tablet 2.5 mg PO TID 10/15/24 12/27/24 History Allergies Allergy/AdvReac Type Severity Reaction Status Date / Time adhesive tape Allergy Itching Verified 10/20/24 07:59 Vital Signs Vital Signs - 24 hr 12/27/24 00:43 12/27/24 02:41 12/27/24 03:01 Temperature 98.2 F Pulse Rate 81 82 81 Respiratory Rate 19 18 15 Blood Pressure 161/118 H 179/114 H 164/72 H Pulse Oximetry 98 97 97 Oxygen Delivery Room Air 12/27/24 03:25 12/27/24 03:28 12/27/24 03:31 Temperature 97.2 F L Pulse Rate 81 77 Respiratory Rate 15 20 Blood Pressure 164/72 H Pulse Oximetry 97 94 Oxygen Delivery Room Air 12/27/24 03:40 Temperature Pulse Rate Respiratory Rate Blood Pressure 165/90 H Pulse Oximetry Oxygen Delivery Exam Const: Other: Confused, unable to redirect HENMT: Mouth: Yes dry mucous membranes Eyes: Pupils: Equal, round and reactive pupils present Resp: Effort & Inspection: normal respiratory effort Other: Limited participation Cardio: Rate: regular rate Rhythm: regular rhythm Heart sounds: no murmurs GI: GI Palp: Yes Soft to palpation : Other: Bladder distention Extrem: General: no edema H&P: Results Labs Labs: Short CBC 12/27/24 Range/Units 01:40 WBC 11.8 H (4.5-10.0) K/mm3 Hgb 12.7 L (14.0-18.0) g/dL Hct 39.0 L (42.0-52.0) % Plt Count 229 (150-375) k/mm3 [facility] 12/27/24 01:40 Sodium 137 Potassium 4.8 Chloride 104 Carbon Dioxide 27 BUN 52 H D Creatinine 1.46 H Glucose 102 Calcium 8.9 Assessment and Plan Assessment and plan (1) Failure to thrive: Status: Acute (2) Leukocytosis: Code(s): D72.829 - Elevated white blood cell count, unspecified Status: Acute (3) Dementia: Code(s): F03.90 - Unspecified dementia, unspecified severity, without behavioral disturbance, psychotic disturbance, mood disturbance, and anxiety Status: Acute (4) Acute kidney injury: Code(s): N17.9 - Acute kidney failure, unspecified Status: Acute Plan Care coordination consultation for placement. Dehydration: Start normal saline at 100 cc/hour, trend renal function. Check renal ultrasound. Asked nurse to do a straight cath and let us know how much residual he had. She reports he was incontinent, although on my exam he has distended bladder. We will obtain a UA at this time as well. Chest x-ray ordered. I reviewed this, I am not able to appreciate any opacity suspicious for pneumonia. Pending official radiology interpretation. Give ceftriaxone 1 g preemptively. He has been weak and falling at home. CT head without acute abnormality. CT cervical spine without contrast without acute fracture or subluxation. He has an history of AFib. He was last discharged from our hospital on 10/20/2024 with Augmentin, docusate sodium, nitroglycerin, omeprazole rosuvastatin Eliquis multivitamin midodrine. With his elevated blood pressure we will not give midodrine. Unclear why he does not have Eliquis on his medication reconciliation at this time. Cannot reach his , suggest verifying this with his in the a.m.. Although, the benefit may no longer away the risk since he is following frequently. Consider hospice as well. DNR. Care coordination consultation for placement. Ambulate with assistance, fall precautions. Normal saline at 100 cc/hour. Hospitalist MIPS Advance Care Plan I have confirmed that the patient's Advanced Care Plan is present, code status is documented, or surrogate decision maker is listed in patient medical record.: Yes Medication Reconciliation I have utilized all available resources to obtain, update and review the patients current medications (includes all prescriptions, OTC, herbals, cannabis, and nutritional supplements).: Yes
--- NOTE | 2024-12-27 06:57 | P.PNIM_ITS ---
Progress Note: A&P Assessment and Plan (1) Fall: Code(s): W19.XXXA - Unspecified fall, initial encounter Status: Acute Assessment and Plan: Multiple falls at home, unable to get up. 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 Stopped on 12/27. UA nonconcerning for infection Chest XR showing atelectasis Given ceftriaxone 1 g preemptively on admission. Will hold on antibiotics at this time as no obvious infection. Continue to trend WBC. (3) Acute kidney injury: Code(s): N17.9 - Acute kidney failure, unspecified Status: Acute Assessment and Plan: BUN/Cr 52/1.46 on admission, baseline appears WNL Possibly related to hypovolemia as patient appeared dehydrated on admission per only drinks about 2 cups of fluids per day at baseline Started on 100 ml/hr NS. Discontinued as renal function back to baseline. Renal US: Indeterminate 9 mm hypoechoic exophytic lesion at the lower pole the right kidney which could represent proteinaceous/hemorrhagic cyst or solid renal cell carcinoma. Lesion is too small for definitive determination by ultrasound and would recommend further evaluation with either pre and postcontrast MRI or CT. Otherwise normal kidneys without hydronephrosis. Trend renal function Monitor I/O Avoid nephrotoxic medications Renally dose medications Renal function back to WNL following IV fluids. Continue to monitor. (4) Atrial fibrillation and flutter: Code(s): I48.91 - Unspecified atrial fibrillation; I48.92 - Unspecified atrial flutter Status: Acute Assessment and Plan: History of AFib, currently in sinus rhythm and rate controlled without beta edin. Discussed anticoagulation with and she states following the discharge in October she discussed with PCP and decided to discontinue this medication given the risks of bleeds due to the falls. (5) Orthostatic hypotension: Code(s): I95.1 - Orthostatic hypotension Status: Acute Assessment and Plan: He was last discharged from our hospital on 10/20/2024 with Midodrine however given his elevated blood pressure we will not give midodrine at this time. Continue to monitor blood pressures and resume as appropriate. (6) Dementia: Code(s): F03.90 - Unspecified dementia, unspecified severity, without behavioral disturbance, psychotic disturbance, mood disturbance, and anxiety Status: Acute Assessment and Plan: Baseline AOx0-1 (self) per She states not uncommon for to stay in bed all day and not talk or follow commands though some days he does ambulate throughout the home without assistance (7) Severe protein-calorie malnutrition: Code(s): E43 - Unspecified severe protein-calorie malnutrition Status: Acute Assessment and Plan: Supplement per nutrition Time Spent With Patient Time with patient: 25 - 35 minutes Subjective Date/time seen: 12/27/24 06:57 Interval history: 84-year-old male with past medical history of orthostatic hypotension, atrial fibrillation, and dementia presents the hospital from home for frequent falls. Patient is pleasant lying comfortably in bed. He is currently alert oriented times 0 unable to follow commands. Discussed patient with who states that his baseline is alert and oriented times 0-1. She says it is not uncommon for him to lie in bed all day not follow commands however there are some days where he is able to ambulate throughout the halls without assistance. She notes that prior to these falls he was doing well with last fall being in October. Review of Systems Review of Systems: ROS unobtainable: Yes unobtainable due to mental status Exam Narrative: AF HR 77 RR 20 Spo2 94 BP 165/90 General: male in no acute respiratory distress who is nontoxic appearing, lying semi recumbent in bed. HEENT: Normocephalic. Atraumatic. Sclera clear and anicteric. Nares patent. No facial asymmetry. Chest: Lungs are clear to auscultation bilaterally. CV: Heart was regular rate and rhythm. Abd: Abdomen was soft. Nontender. Nondistended. Positive bowel sounds. Ext: No clubbing, cyanosis, or edema. DP pulses bilaterally. Neuro: Patient is alert and oriented x0 not following commands. Psych: Normal nood and affect. Patient is pleasant and cooperative. Skin: Warm and dry. No rashes noted. Objective Data Vital Signs Vital Signs: Vital Signs - 24 hr 12/27/24 00:43 12/27/24 02:41 12/27/24 03:01 Temperature 98.2 F Pulse Rate 81 82 81 Respiratory Rate 19 18 15 Blood Pressure 161/118 H 179/114 H 164/72 H Pulse Oximetry 98 97 97 Oxygen Delivery Room Air 12/27/24 03:25 12/27/24 03:28 12/27/24 03:31 Temperature 97.2 F L Pulse Rate 81 77 Respiratory Rate 15 20 Blood Pressure 164/72 H Pulse Oximetry 97 94 Oxygen Delivery Room Air 12/27/24 03:40 Temperature Pulse Rate Respiratory Rate Blood Pressure 165/90 H Pulse Oximetry Oxygen Delivery Intake/Output Intake/Output: Intake & Output 12/24/24 12/25/24 12/26/24 12/27/24 23:59 23:59 23:59 23:59 Intake Total 0 Balance 0 Meds/Results Medications: Active Medications Generic Name Dose Route Start Last Admin Trade Name Freq PRN Reason Stop Dose Admin Sodium Chloride 1,000 mls @ 100 mls/hr 12/27/24 06:30 12/27/24 06:44 Normal Saline Iv IV CONT 100 mls/hr .Q10H KIESHA Administration Ceftriaxone Sodium 1 gm/ 50 mls @ 100 mls/hr 12/27/24 06:35 12/27/24 06:44 Sodium Chloride IVPB 12/27/24 07:04 100 mls/hr ONCE ONE Administration Multivitamins Therapeutic 1 tablet 12/27/24 09:00 Multivitamins Therapeutic Tab (*Bkc) PO DAILY KIESHA Pantoprazole Sodium 40 mg 12/27/24 21:00 Pantoprazole 40 Mg Tablet PO HS KIESHA Rosuvastatin Calcium 20 mg 12/27/24 21:00 Rosuvastatin 20 Mg Tablet PO HS KIESHA Labs Labs: Laboratory Results - last 24 hr 12/27/24 01:40 WBC 11.8 H RBC 3.88 L Hgb 12.7 L Hct 39.0 L MCV 100.5 H MCH 32.7 MCHC 32.6 RDW 13.7 Plt Count 229 MPV 9.7 Immature Gran % (Auto) 0.5 Neut % (Auto) 75.8 H Lymph % (Auto) 12.3 L [place] % (Auto) 8.5 Eos % (Auto) 2.4 Baso % (Auto) 0.5 Lymph # (Auto) 1.45 [place] # (Auto) 1.0 H Eos # (Auto) 0.3 Baso # (Auto) 0.1 Abs Immat Gran (auto) 0.06 H Absolute Neuts (auto) 9.0 H Absolute Nucleated RBC 0.000 Nucleated RBC % 0.0 Sodium 137 Potassium 4.8 Chloride 104 Carbon Dioxide 27 Anion Gap 6 BUN 52 H D Creatinine 1.46 H Estim Creat Clear Calc 35 Estimated GFR 46 L Glucose 102 Calcium 8.9 Quality VTE Prophylaxis VTE prophylaxis: pharmacologic ordered
[2024-12-27 07:04] LABS: Add Urine Microscopic? NO; Appearance Urine Clear (Clear); Glucose Urine UA Negative (Negative); Leukocyte Esterase Ur Negative LEU/UL (Negative); Nitrate Urine Negative (Negative); Specific Grav Ur 1.013 (1.001-1.035)
[2024-12-27 12:13] LABS: Anion Gap 7 mmol/L (4-12); Blood Urea Nitrogen 39 mg/dL (9-20); Calcium 8.8 mg/dL (8.4-10.2); Carbon Dioxide 25 mmol/L (22-30); Chloride 106 mmol/L (98-107); Estimated CRCL calculation 43 ml/min; Estimated Glomerular Filt Rate > 60; Glucose 94 mg/dL (65-110); Potassium 4.0 mmol/L (3.4-5.0); Sodium 138 mmol/L (137-145)
--- NOTE | 2024-12-27 13:35 | P.CDI_ITS ---
CDI Query Clarification Request BMI: 21.5 Nutritional Diagnostic Statement: Please refer to the comprehensive nutrition assessment for further information. If you agree with diagnosis of Severe Protein Calorie Malnutrition as related to intake protein-energy intake with increased protein energy needs in the setting of chronic disease as evidenced by minimal oral intake for > 1-2 months; significant weight loss of 16% (31 ibs) in 9 months; moderate subcutaneous fat loss (orbital fat pads) and moderate muscle wasting (temporalis). Please specify severity if known: * Mild * Moderate * Severe * Other/Unknown <Shazia Rivera RN - Last Filed: 12/27/24 13:36> Clarified Diagnosis Clarified Diagnosis: severe <Elana Hansen PA-C - Last Filed: 12/27/24 15:21>
--- NOTE | 2024-12-27 14:18 | PC.NURSE ---
On 12/27/24, the student, [Anu Aldrich], provided care and completed [facility] documentation on this patient. I have reviewed the student's documentation and agree with the findings.
[2024-12-28 04:26] LABS: Hematocrit 41.2 % (42.0-52.0); Hemoglobin 13.1 g/dL (14.0-18.0); Mean Corpuscular HGB Conc 31.8 g/dl (32-36); Mean Corpuscular Hemoglobin 32.2 pg (26-34); Mean Corpuscular Volume 101.2 fl (80-100); Platelet Count Result 215 k/mm3 (150-375); Red Blood Count 4.07 M/mm3 (4.6-6.20); White Blood Count 8.6 K/mm3 (4.5-10.0)
[2024-12-28 04:34] VITALS: BP 183/78; PULSE 65; RESP 16; TEMP 36.6; O2SAT 98
[2024-12-28 04:52] LABS: Anion Gap 5 mmol/L (4-12); Blood Urea Nitrogen 33 mg/dL (9-20); Calcium 8.7 mg/dL (8.4-10.2); Carbon Dioxide 28 mmol/L (22-30); Chloride 104 mmol/L (98-107); Estimated CRCL calculation 45 ml/min; Estimated Glomerular Filt Rate > 60; Glucose 85 mg/dL (65-110); Potassium 4.5 mmol/L (3.4-5.0); Sodium 137 mmol/L (137-145)
--- NOTE | 2024-12-28 08:22 | PM.IMPN ---
Progress Note: A&P Assessment and Plan (1) Fall: Code(s): W19.XXXA - Unspecified fall, initial encounter Status: Acute Assessment and Plan: Multiple falls at home, unable to get up. 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 Stopped on 12/27. UA nonconcerning for infection Chest XR showing atelectasis Given ceftriaxone 1 g preemptively on admission. Will hold on antibiotics at this time as no obvious infection. Continue to trend WBC. (3) Acute kidney injury: Code(s): N17.9 - Acute kidney failure, unspecified Status: Acute Assessment and Plan: BUN/Cr 52/1.46 on admission, baseline appears WNL Possibly related to hypovolemia as patient appeared dehydrated on admission per only drinks about 2 cups of fluids per day at baseline Started on 100 ml/hr NS. Discontinued as renal function back to baseline. Renal US: Indeterminate 9 mm hypoechoic exophytic lesion at the lower pole the right kidney which could represent proteinaceous/hemorrhagic cyst or solid renal cell carcinoma. Lesion is too small for definitive determination by ultrasound and would recommend further evaluation with either pre and postcontrast MRI or CT. Otherwise normal kidneys without hydronephrosis. Trend renal function Monitor I/O Avoid nephrotoxic medications Renally dose medications Renal function back to WNL following IV fluids. Continue to monitor. (4) Atrial fibrillation and flutter: Code(s): I48.91 - Unspecified atrial fibrillation; I48.92 - Unspecified atrial flutter Status: Acute Assessment and Plan: History of AFib, currently in sinus rhythm and rate controlled without beta edin. Discussed anticoagulation with and she states following the discharge in October she discussed with PCP and decided to discontinue this medication given the risks of bleeds due to the falls. (5) Orthostatic hypotension: Code(s): I95.1 - Orthostatic hypotension Status: Acute Assessment and Plan: He was last discharged from our hospital on 10/20/2024 with Midodrine however given his elevated blood pressure we will not give midodrine at this time. Continue to monitor blood pressures and resume as appropriate. (6) Dementia: Code(s): F03.90 - Unspecified dementia, unspecified severity, without behavioral disturbance, psychotic disturbance, mood disturbance, and anxiety Status: Acute Assessment and Plan: Baseline AOx0-1 (self) per She states not uncommon for to stay in bed all day and not talk or follow commands though some days he does ambulate throughout the home without assistance (7) Severe protein-calorie malnutrition: Code(s): E43 - Unspecified severe protein-calorie malnutrition Status: Acute Assessment and Plan: Supplement per nutrition Time Spent With Patient Time with patient: Greater than 35 minutes Subjective Date/time seen: 12/28/24 08:22 Interval history: 84-year-old male with past medical history of orthostatic hypotension, atrial fibrillation, and dementia presents the hospital from home for frequent falls. Assuming care. Patient is seen and examined this morning. He is calm and pleasant. He is currently alert oriented times 0 unable to follow commands- his baseline is 0-1. notes several falls at home but prior to these falls he was doing well with last fall being in October. Care coordination following for placement. Review of Systems Review of Systems: All systems reviewed & are unremarkable except as noted in HPI and below (Subjective) ROS unobtainable: Yes unobtainable due to mental status Exam Narrative: General: male in no acute respiratory distress who is nontoxic appearing, resting in bed. HEENT: Normocephalic. Atraumatic. Sclera clear and anicteric. Nares patent. No facial asymmetry. Chest: Lungs are clear to auscultation bilaterally. CV: Heart was regular rate and rhythm. Abd: Abdomen was soft. Nontender. Nondistended. Positive bowel sounds. Ext: No clubbing, cyanosis, or edema. DP pulses bilaterally. Neuro: Patient is alert and oriented x0 not following commands. Psych: Normal nood and affect. Patient is pleasant and cooperative. Skin: Warm and dry. No rashes noted. Const: General: comfortable Other: Confused HENMT: Mouth: Yes dry mucous membranes Eyes: Pupils: Equal, round and reactive pupils present Resp: Effort & Inspection: normal respiratory effort Other: Limited participation Cardio: Rate: regular rate Rhythm: regular rhythm Heart sounds: no murmurs GI: GI Palp: Yes Soft to palpation : Other: Bladder distention Neuro: Cranial nerves: Yes Equal, round and reactive pupils present Extrem: General: no edema Objective Data Vital Signs Vital Signs: Vital Signs - 24 hr 12/27/24 09:09 12/27/24 09:22 12/27/24 10:43 Temperature Pulse Rate Respiratory Rate Blood Pressure Pulse Oximetry Oxygen Delivery Room Air Room Air Room Air 12/27/24 14:00 12/27/24 20:00 12/27/24 20:40 Temperature 97.2 F L 98.0 F Pulse Rate 68 80 Respiratory Rate 14 14 Blood Pressure 173/69 H 135/99 H Pulse Oximetry 100 98 Oxygen Delivery Room Air 12/28/24 04:34 Temperature 97.8 F Pulse Rate 65 Respiratory Rate 16 Blood Pressure 183/78 H Pulse Oximetry 98 Oxygen Delivery Intake/Output Intake/Output: Intake & Output 12/25/24 12/26/24 12/27/24 12/28/24 23:59 23:59 23:59 23:59 Intake Total 125 150 Output Total 600 Balance -475 150 Meds/Results Medications: Active Medications Generic Name Dose Route Start Last Admin Trade Name Freq PRN Reason Stop Dose Admin Enoxaparin Sodium 40 mg 12/28/24 09:00 Enoxaparin 40 Mg/0.4 Ml Syringe SUB-Q DAILY [facility] Multivitamins Therapeutic 1 tablet 12/27/24 09:00 12/27/24 11:35 Multivitamins Therapeutic Tab (*Bkc) PO Not Given DAILY [facility] Pantoprazole Sodium 40 mg 12/27/24 21:00 12/27/24 20:44 Pantoprazole 40 Mg Tablet PO Not Given HS [facility] Rosuvastatin Calcium 20 mg 12/27/24 21:00 12/27/24 20:45 Rosuvastatin 20 Mg Tablet PO Not Given HS [facility] Radiology Results: ITS Impressions Chest X-Ray 12/27/24 08:24 IMPRESSION: 1. Mild bibasilar atelectasis and/or airspace disease. Head CT 12/27/24 08:30 Impression: 1.No acute intracranial abnormality. Cervical Spine CT 12/27/24 08:48 Impression: No acute abnormality. Renal Ultrasound 12/27/24 12:45 IMPRESSION: 1. Indeterminate 9 mm hypoechoic exophytic lesion at the lower pole the right kidney which could represent proteinaceous/hemorrhagic cyst or solid renal cell carcinoma. Lesion is too small for definitive determination by ultrasound and would recommend further evaluation with either pre and postcontrast MRI or CT. Otherwise normal kidneys without hydronephrosis. Labs Labs: Laboratory Results - last 24 hr 12/27/24 12/28/24 11:30 04:17 WBC 8.6 RBC 4.07 L Hgb 13.1 L Hct 41.2 L MCV 101.2 H MCH 32.2 MCHC 31.8 L RDW 13.7 Plt Count 215 MPV 9.7 Sodium 138 137 Potassium 4.0 4.5 Chloride 106 104 Carbon Dioxide 25 28 Anion Gap 7 5 BUN 39 H D 33 H Creatinine 1.13 1.06 Estim Creat Clear Calc 43 45 Estimated GFR > 60 > 60 Glucose 94 85 Calcium 8.8 8.7 Quality VTE Prophylaxis VTE prophylaxis: pharmacologic ordered
[2024-12-28 09:38] VITALS: BP 169/109; PULSE 63; RESP 16; TEMP 36.4; O2SAT 96
[2024-12-28 09:40] VITALS: PULSE 63; RESP 16; O2SAT 96
[2024-12-28] MEDS: ENOXAPARIN 40 MG/0.4 ML SYRINGE SUB-Q (09:40)
--- NOTE | 2024-12-28 12:33 | PM.DS ---
DS: Admitting Diagnosis Discharge Date 12/28 Admitting Diagnosis frequent fall DS: Discharge Diagnosis Discharge Diagnosis (1) Fall: Code(s): W19.XXXA - Unspecified fall, initial encounter Status: Acute Assessment and Plan: Multiple falls at home, unable to get up. Has been living at home with ADRIENNE nonconcerning for infection All imaging reviewed: CT head: no acute intracranial process CT c spine: no acute fracture or subluxation Chest XR: mild bibasilar atelectasis and or airspace disease PT/OT recommending SNF vs intermediate care facility care coordination following for placement (2) Leukocytosis: Code(s): D72.829 - Elevated white blood cell count, unspecified Status: Acute Assessment and Plan: WBC slightly elevated at 11.8 on admission Afebrile Possibly related to dehydration, started on 100 cc/hr IV fluids. Stopped on 12/27. UA nonconcerning for infection Chest XR showing atelectasis Given ceftriaxone 1 g preemptively on admission. Will hold on antibiotics at this time as no obvious infection. Continue to trend WBC. (3) Acute kidney injury: Code(s): N17.9 - Acute kidney failure, unspecified Status: Acute Assessment and Plan: BUN/Cr 52/1.46 on admission, baseline appears WNL Possibly related to hypovolemia as patient appeared dehydrated on admission per only drinks about 2 cups of fluids per day at baseline Started on 100 ml/hr NS. Discontinued as renal function back to baseline. Renal US: Indeterminate 9 mm hypoechoic exophytic lesion at the lower pole the right kidney which could represent proteinaceous/hemorrhagic cyst or solid renal cell carcinoma. Lesion is too small for definitive determination by ultrasound and would recommend further evaluation with either pre and postcontrast MRI or CT. Otherwise normal kidneys without hydronephrosis. Trend renal function Monitor I/O Avoid nephrotoxic medications Renally dose medications Renal function back to WNL following IV fluids. Continue to monitor. (4) Atrial fibrillation and flutter: Code(s): I48.91 - Unspecified atrial fibrillation; I48.92 - Unspecified atrial flutter Status: Acute Assessment and Plan: History of AFib, currently in sinus rhythm and rate controlled without beta edin. Discussed anticoagulation with and she states following the discharge in October she discussed with PCP and decided to discontinue this medication given the risks of bleeds due to the falls. (5) Orthostatic hypotension: Code(s): I95.1 - Orthostatic hypotension Status: Acute Assessment and Plan: He was last discharged from our hospital on 10/20/2024 with Midodrine however given his elevated blood pressure we will not give midodrine at this time. Continue to monitor blood pressures and resume as appropriate. (6) Dementia: Code(s): F03.90 - Unspecified dementia, unspecified severity, without behavioral disturbance, psychotic disturbance, mood disturbance, and anxiety Status: Acute Assessment and Plan: Baseline AOx0-1 (self) per She states not uncommon for to stay in bed all day and not talk or follow commands though some days he does ambulate throughout the home without assistance (7) Severe protein-calorie malnutrition: Code(s): E43 - Unspecified severe protein-calorie malnutrition Status: Acute Assessment and Plan: Supplement per nutrition DS: Summary Hospital Course Hospital Course: 84-year-old male with past medical history of orthostatic hypotension, atrial fibrillation, and dementia presents the hospital from home for frequent falls. Speech eval completed- puree consistency is recommended/level4, mildly thick liquid/level2. Sit upright when eating. NO straw. small bites and further f/u for MBS if needed. # Fall: Multiple falls at home, unable to get up. 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 Stopped on 12/27. UA nonconcerning for infection Chest XR showing atelectasis Given ceftriaxone 1 g preemptively on admission. Will hold on antibiotics at this time as no obvious infection. # Acute kidney injury: BUN/Cr 52/1.46 on admission, baseline appears WNL Possibly related to hypovolemia as patient appeared dehydrated on admission per only drinks about 2 cups of fluids per day at baseline Started on 100 ml/hr NS. Discontinued as renal function back to baseline. Renal US: Indeterminate 9 mm hypoechoic exophytic lesion at the lower pole the right kidney which could represent proteinaceous/hemorrhagic cyst or solid renal cell carcinoma. Lesion is too small for definitive determination by ultrasound and would recommend further evaluation with either pre and postcontrast MRI or CT. Otherwise normal kidneys without hydronephrosis. Renal function back to WNL following IV fluids. Continue to monitor. improved # Atrial fibrillation and flutter: History of AFib, currently in sinus rhythm and rate controlled without beta edin. Discussed anticoagulation with and she states following the discharge in October she discussed with PCP and decided to discontinue this medication given the risks of bleeds due to the falls. # Orthostatic hypotension: He was last discharged from our hospital on 10/20/2024 with Midodrine however given his elevated blood pressure we will not give midodrine at this time. Continue to monitor blood pressures and resume as appropriate. # Dementia: Baseline AOx0-1 (self) per She states not uncommon for to stay in bed all day and not talk or follow commands though some days he does ambulate throughout the home without assistance Discharge to memory care with [facility] # Severe protein-calorie malnutrition: Supplement per nutrition Status at Discharge Functional status at discharge: uses cane/walker Overall status at discharge: patient is progressing back to baseline Time Spent with Patient Time attestation: Total time spent providing and/or coordinating discharge services: Time spent: Greater than 30 minutes Exam Narrative: General: male in no acute respiratory distress who is nontoxic appearing, resting in bed. HEENT: Normocephalic. Atraumatic. Sclera clear and anicteric. Nares patent. No facial asymmetry. Chest: Lungs are clear to auscultation bilaterally. CV: Heart was regular rate and rhythm. Abd: Abdomen was soft. Nontender. Nondistended. Positive bowel sounds. Ext: No clubbing, cyanosis, or edema. DP pulses bilaterally. Neuro: Patient is alert and oriented x0 not following commands. Psych: Normal nood and affect. Patient is pleasant and cooperative. Skin: Warm and dry. No rashes noted. Const: General: comfortable Other: Confused HENMT: Mouth: Yes dry mucous membranes Eyes: Pupils: Equal, round and reactive pupils present Resp: Effort & Inspection: normal respiratory effort Other: Limited participation Cardio: Rate: regular rate Rhythm: regular rhythm Heart sounds: no murmurs : Other: Bladder distention Neuro: Cranial nerves: Yes Equal, round and reactive pupils present Extrem: General: no edema DS: Data Data Completed and Pending Labs on day of discharge: Labs from last 24 hours 12/28/24 04:17 WBC 8.6 RBC 4.07 L Hgb 13.1 L Hct 41.2 L MCV 101.2 H MCH 32.2 MCHC 31.8 L RDW 13.7 Plt Count 215 MPV 9.7 Sodium 137 Potassium 4.5 Chloride 104 Carbon Dioxide 28 Anion Gap 5 BUN 33 H Creatinine 1.06 Estim Creat Clear Calc 45 Estimated GFR > 60 Glucose 85 Calcium 8.7 Discharge Plan Discharge Attending physician on discharge: Jarett Palomares Consulting providers: Elana Hansen Discharging Clinician: Shaye Cain Patient Disposition: Home with Home Health Service Activity: august show Diet: heart healthy Discharge Instructions: Per Care Coordination. Patient to have [facility] for ST/PT/OT eval and treat at [facility] P: [phone] RN please fax discharge instructions to: F: [phone] Patient Instructions: Antibiotic Form Patient Language: Mongolian Stand Alone Forms: General Discharge Information Follow-up/Referrals: Tanvi,MD Nick [Primary Care Provider] - 2 Weeks Discharge Medications: Continued omeprazole 20 mg capsule,delayed release(DR/EC) 20 mg PO HS rosuvastatin 20 mg tablet 20 mg PO HS multivitamin [Daily Multi-Vitamin] Tablet 1 tablet PO DAILY Held midodrine 2.5 mg tablet 2.5 mg PO TID Hold Instructions: Resume on 01/11/25. hold until re eval per PCP Rx Instructions: do not give last dose of day after 6PM or within 4 hrs of bedtime Date of admission: 12/27/24 02:30 Primary Care Provider: TanviNick Admitting Provider: Miroslava Yu Attending physician on admission: Miroslava Yu Condition: Stable Quality VTE Prophylaxis VTE prophylaxis: pharmacologic ordered Hospitalist MIPS Heart Failure (Exclusion) Patient has history of Heart Transplant or Left Ventricular Assistive Device?: No IF YES, STOP HERE Heart Failure (Qualifier) Patient has current or prior documentation of LVEF less than or equal to 40%, or mod/servere depressed LVSF?: No IF NO, STOP HERE
== END 2024-12-28 14:21 | disposition home health service (06) ==
LOC: ANHED 01:44 → ANH2MED 04:08
PROVIDERS: Student in an Organized Health Care Education/Training Program; Admitting Provider General Practice; Emergency Provider Emergency Medicine; PCP Internal Medicine; Visit Provider General Practice
DX: E86.0 Dehydration (principal); E43 Unspecified severe protein-calorie malnutrition; R62.7 Adult failure to thrive; Z68.21 Body mass index [BMI] 21.0-21.9, adult; N17.9 Acute kidney failure, unspecified; D72.829 Elevated white blood cell count, unspecified; I48.91 Unspecified atrial fibrillation; W19.XXXA Unspecified fall, initial encounter; Z91.81 History of falling; I48.92 Unspecified atrial flutter; I95.1 Orthostatic hypotension; F03.90 Unspecified dementia, unspecified severity, without behavioral disturbance, psychotic disturbance, mood disturbance, and anxiety; Z66 Do not resuscitate
CPT/HCPCS: 36415; 70450; 71045; 72125; 76770; 80048; 81003; 85025; 85027; 92610; 96372; 96374; 97162; 97166; 99285; A9270; G0378; J0696; J1650; J7030